=== PATIENT | female | born 1950 | race Caucasian/White ===

== ENCOUNTER 2021-02-21 13:54 | Outpatient (REF) | payer MEDICARE, SELFPAY ==
--- NOTE | ~2021-02-21 | MM_ITS ---
EXAMINATION: BONE DENSITOMETRY CLINICAL INDICATION: Screening for osteoporosis. COMPARISON: Baseline BD dated 10/12/2018. TECHNIQUE: Using a [employer] DXA System (software version: 13.1) manufactured by [employer], dual-energy x-ray absorptiometry was performed of the lumbar spine and left hip. The images are of good technical quality. Summary results are attached. FINDINGS: AP SPINE L1-L4: Current: BMD 1.247 g/cm2, Z-score 1.1, T-score 0.6, normal, 16.9% increase from baseline (<5% change is not significant). Baseline: BMD 1.067 g/cm2. LEFT FEMUR, NECK: Current: BMD 0.915 g/cm2, Z-score 0.1, T-score -0.9, normal. Baseline: BMD 0.911 g/cm2. LEFT FEMUR, TOTAL: Current: BMD 0.883 g/cm2, Z-score -0.3, T-score -1.0, normal, 3.7% decrease from baseline (<5% change is not significant). Baseline: BMD 0.917 g/cm2. IDENTIFIED RISK FACTORS: Rheumatoid arthritis, height loss. Early menopause, secondary osteoporosis, hysterectomy. HISTORY OF FRACTURE: None listed. MEDICATIONS: Calcium supplements or multivitamin, vitamin D. MM/XR DEXA axial skeleton IMPRESSION: 1. DIAGNOSIS: Normal bone density based on the lowest T-score value of -1.0 in the total femur applying World Health Organization criteria. 2. 10-YEAR FRACTURE RISK PREDICTION, FRAX: Major osteoporotic fracture (clinical spine, forearm, hip or shoulder) 9.2%. Hip fracture 0.9%. 3. Treatment Recommendations: NOF guidelines recommend consideration for treatment in postmenopausal women and men age 50 and older presenting with the following: -A hip or vertebral (clinical or morphometric) fracture. -T-score less than or equal to -2.5 at the femoral neck or spine after appropriate evaluation to exclude secondary causes. -Low bone mass at the hip or spine and a 10-year fracture probability by FRAX of greater than or equal to 3% for hip fracture or greater than or equal to 20% for major osteoporotic fracture based on the [place] adapted WHO algorithm. 4. Other Recommendations: All treatment decisions require clinical judgment and consideration of individual patient factors, including patient preferences, comorbidities, previous drug use, risk factors not captured in the FRAX model (e.g. frailty, falls, vitamin D deficiency, increased bone turnover, interval significant decline in bone density) and possible under or overestimation of fracture risk by FRAX. FUTURE SCAN RECOMMENDATION: People with diagnosed cases of osteoporosis or at high risk for fracture should have regular bone mineral density tests. For patients eligible for Medicare, routine testing is allowed once every 2 years. The testing frequency can be increased to one year for patients who have rapidly progressing disease, those who are receiving or discontinuing medical therapy to restore bone mass, or have additional risk factors.
== END 2021-02-21 13:55 | disposition home or self-care (01) ==
LOC: HO.MAMMO 13:54
PROVIDERS: Visit Provider Internal Medicine Rheumatology
DX: Z13.820 Encounter for screening for osteoporosis (principal); M05.79 Rheumatoid arthritis with rheumatoid factor of multiple sites without organ or systems involvement; Z78.0 Asymptomatic menopausal state; Z79.899 Other long term (current) drug therapy; Z98.890 Other specified postprocedural states
CPT/HCPCS: 77080

== ENCOUNTER 2021-09-09 11:09 | Emergency (ER) | payer MEDICARE, SELFPAY ==
--- NOTE | ~2021-09-09 | XR_ITS ---
EXAMINATION: XR CHEST CLINICAL INFORMATION: Dyspnea COMPARISON: Chest radiographs 11/20/2019, 10/14/2018 TECHNIQUE: Frontal view of the chest was obtained. FINDINGS: The lungs are clear. There is no pneumothorax or pleural reaction. No vascular congestion, infiltrate, or groundglass opacity. The costophrenic sulci are clear. The heart is normal in size. The hilar and mediastinal contours and visualized bony structures are unremarkable. XR/XR chest 1V IMPRESSION: Unremarkable examination.
[2021-09-09 11:51] VITALS: BP 153/55; PULSE 83; RESP 20; TEMP 36.9; O2SAT 95; BMI 44.2
--- NOTE | 2021-09-09 11:54 | ECG_ITS ---
Test Reason : SOB Blood Pressure : / mmHG Vent. Rate : 076 BPM Atrial Rate : 076 BPM P-R Int : 196 ms QRS Dur : 074 ms QT Int : 402 ms P-R-T Axes : 043 -07 034 degrees QTc Int : 452 ms Normal sinus rhythm Left axis deviation Poor R wave progression Abnormal ECG When compared with ECG of 20-NOV-2019 18:31, No significant change was found Referred By: Generic ED Physician Electronically Signed By:FRED SMYTH MD
[2021-09-09 12:49] LABS: MANUAL DIFF FLAG NO
[2021-09-09 12:53] LABS: Basophils Percent Auto 0.4 % (0-2); Eosinophils Absolute Auto 0.3 X10*3/uL (0.0-0.4); Eosinophils Percent Auto 3.7 % (0-4); Imm Gran Abs Auto 0.02 X10*3/uL (0.00-0.03); Imm Gran Pct Auto 0.3 % (0.0-0.4); Lymphocytes Absolute Auto 0.7 X10*3/uL (1.2-4.9); Lymphocytes Percent Auto 8.9 % (20-40); Mean Corpuscular HGB Conc 32.4 g/dl (31.0-35.0); Mean Corpuscular Hemoglobin 30.4 pg (27.0-33.0); Mean Corpuscular Volume 93.9 fL (80.0-98.0); Mean Platelet Volume 9.5 fL (9.4-12.3); Monocytes Absolute Auto 0.4 X10*3/uL (0.1-1.2); Monocytes Percent Auto 5.4 % (2-11); Neutrophils Absolute Auto 6.1 x10*3/uL (2.0-8.3); Neutrophils Percent Auto 81.3 % (45-73); Platelet Count 252 X10*3/uL (160-400); Red Blood Count 3.62 X10*6/uL (4.20-5.50); Red Cell Distribution Width 14.3 % (11.0-16.0); White Blood Count 7.5 X10*3/uL (4.8-10.8)
[2021-09-09 13:05] LABS: Anion Gap 14 (12-20); Blood Urea Nitrogen 17 mg/dL (9-16); Calcium 8.6 mg/dL (8.4-10.2); Carbon Dioxide 23 mmol/L (22-29); Chloride 104 mmol/L (96-108); Creatinine Clr Calc Pharmacy 59.5; Estimated Glomerular Filt Rate 52; Glucose Random 270 mg/dL (60-115); Potassium 4.8 mmol/L (3.3-5.1); Sodium 136 mmol/L (135-145)
[2021-09-09 13:13] LABS: B Type Natriuretic Peptide 31 pg/mL (<100)
[2021-09-09] MEDS: methylPREDNISolone Sod Succ 125 MG/2 ML VIAL IVPUSH (13:16)
[2021-09-09 13:19] VITALS: BP 148/59; PULSE 82; RESP 22; O2SAT 98
--- NOTE | 2021-09-09 15:03 | ED.GENADULT ---
HPI - General Adult General Chief complaint: Dyspnea Stated complaint: Difficulty Breathing Time Seen by Provider: 09/09/21 12:52 Source: patient Mode of arrival: ambulatory Limitations: no limitations History of Present Illness HPI narrative: 71-year-old female who presents emergency department for evaluation of shortness of breath x6 days. Patient states that she has had a cough which has been nonproductive. She also complains of right-sided chest pain. She describes the pain is a pressure-like pain which is intermittent and is mild to moderate intensity, the pain is worse with breathing and with coughing. The patient does have a history of asthma and states that over the past 2-3 days she has had to use her inhaler 2 to 3 times a day and her albuterol nebulizer 2 to 3 times a day as well. She states that this is unusual to use these medications this frequently without any relief. She denied fever, chills, abdominal pain, nausea, vomiting, diarrhea, myalgias or arthralgias. The patient states that she has not had to be hospitalized for asthma and a very long time. She has received the 2 shot [employer] COVID 19 vaccination. Related Data Previous Rx's Medication Instructions Recorded prednisone 20 mg tablet 40 mg PO DAILY 5 Days #10 tab 09/09/21 Allergies Allergy/AdvReac Type Severity Reaction Status Date / Time rosuvastatin [From CRESTOR] Allergy Unknown UNKNOWN Unverified 06/27/20 15:50 Review of Systems Review of Systems: Yes all other systems are reviewed and are negative [facility] Past Medical History [facility] Narrative: Past medical history: Diabetes mellitus, hypertension, asthma, pulmonary embolism 5 years prior pain treated with Eliquis. Past surgical history hysterectomy. Social history: She lives with her sister and [id number]. She denies tobacco, alcohol and drug use. Medical History (Updated 09/09/21 @ 15:20 by Favian Guerrero MD) Diabetes mellitus, type 2 Hypertension Social History Social History Alcohol intake: unknown Patient Tobacco Use Status: Tobacco use Unknown Use of substances other than those prescribed or required for medical reasons: No Advance Directives: Yes Advance Directives Information Provided: No Advance Directives on File: No Physical Exam Vital Signs: Vital Signs: Last Vital Signs Temp 98.4 F 09/09/21 11:51 Pulse 81 09/09/21 15:18 Resp 20 09/09/21 15:18 BP 149/76 H 09/09/21 15:18 Pulse Ox 99 09/09/21 15:18 Body Mass Index 44.2 Const: Other: Very pleasant and cooperative elderly patient, does not appear to be in distress, is able to talk in full sentences, answers all questions appropriately. HENMT: Head: Yes normal to inspection, Yes normocephalic and Yes atraumatic Ears: external ears normal General nose exam: Normal external nose present Face and sinus: Yes normal facial exam Mouth: Normal oral and palatal mucosa present Throat: Yes posterior oropharynx normal Eyes: General: appearance normal, both eyes and all related structures Pupils: Equal, round and reactive pupils present Neck: Neck: Yes normal visual inspection, Yes no lymphadenopathy, Yes trachea midline and Yes supple Chest: Chest palpation & inspection: normal inspection of the chest and normal palpation of entire chest wall Resp: Effort & Inspection: normal respiratory effort and able to speak in complete sentences Auscultation: clear to auscultation bilaterally Cardio: Rate: regular rate Rhythm: regular rhythm Heart sounds: S1 normal heart sound present, S2 normal heart sound present and no murmurs GI: Inspection: Yes normal to inspection Palpation (GI): Soft to palpation, nontender and no guarding Auscultation: normal bowel sounds : General: Yes no CVA tenderness Back/Spine/Pelvis: Back: no CVA tenderness Skin: General skin exam: no rashes or lesions noted Neuro: Cranial nerves: Yes CN's II-XII intact bilaterally and Yes Equal, round and reactive pupils present Cognition (Neuro): normal cognition Motor exam (neuro): 5/5 motor strength present throughout Extrem: General: Yes normal to inspection Psych: Appearance: grossly normal Speech and movement: Normal speech and movement present Affect: normal affect Attitude: cooperative Thought process: Normal thought process present Thought content: Normal thought content present Course Course Course Narrative: 71-year-old female who presents emergency department for evaluation nonproductive cough, shortness of breath x6 days who has a history of asthma and has been using her albuterol inhaler and nebulizer more frequently with only minimal improvement of her shortness of breath. Vital signs revealed an elevated blood pressure of 153/55 and an O2 saturation ranging from 95-98% on room air. Patient's lung exam was unremarkable. The patient's laboratory evaluation revealed mild anemia with an H&H of 11 and 34. The patient does have an elevated glucose of 270. The patient's high sensitivity troponin I was detectable at 7.0 but not elevated. Twelve EKG was unremarkable. Chest x-ray revealed no evidence of pneumonia. Patient's presentation is consistent with an asthma exacerbation most likely triggered by a viral infection. Patient was given Solu-Medrol 125 mg IV. I did order a SARs COVID-19, influenza and RSV swab however this is pending. At this time I think the patient is stable to be discharged home and she agrees that she feels that she can continue to manage her asthma exacerbation at home. Patient was prescribed prednisone 40 mg once a day for 5 days. She was advised to continue using her albuterol inhaler and nebulizer as prescribed. She was given printed and verbal instructions and discharged home. 1719: COVID 19, Influenza and RSV tests were negative. I did discuss these tests with the patient. Medical Decision Making Lab Data Result diagrams: 09/09/21 12:42 09/09/21 12:42 Labs: Lab Results 09/09/21 09/09/21 09/09/21 Range/Units 12:42 12:42 12:42 WBC 7.5 (4.8-10.8) X10*3/uL RBC 3.62 L (4.20-5.50) X10*6/uL Hgb 11.0 L (12.0-16.0) g/dl Hct 34.0 L (37.0-47.0) % MCV 93.9 (80.0-98.0) fL MCH 30.4 (27.0-33.0) pg MCHC 32.4 (31.0-35.0) g/dl RDW 14.3 (11.0-16.0) % Plt Count 252 (160-400) X10*3/uL MPV 9.5 (9.4-12.3) fL Immature Gran % (Auto) 0.3 (0.0-0.4) % Neut % (Auto) 81.3 H (45-73) % Lymph % (Auto) 8.9 L (20-40) % Floyd % (Auto) 5.4 (2-11) % Eos % (Auto) 3.7 (0-4) % Baso % (Auto) 0.4 (0-2) % Lymph # (Auto) 0.7 L (1.2-4.9) X10*3/uL Floyd # (Auto) 0.4 (0.1-1.2) X10*3/uL Eos # (Auto) 0.3 (0.0-0.4) X10*3/uL Baso # (Auto) 0.0 (0.0-0.2) X10*3/uL Abs Immat Gran (auto) 0.02 (0.00-0.03) X10*3/uL Absolute Neuts (auto) 6.1 (2.0-8.3) x10*3/uL Absolute Nucleated RBC 0.000 (0.0-0.012) X10*3/uL Nucleated RBC % (auto) 0.0 (0.0-0.2) /100WBC Sodium 136 (135-145) mmol/L Potassium 4.8 (3.3-5.1) mmol/L Chloride 104 (96-108) mmol/L Carbon Dioxide 23 (22-29) mmol/L Anion Gap 14 (12-20) BUN 17 H (9-16) mg/dL Creatinine 1.05 (0.5-1.4) mg/dL Estim Creat Clear Calc 59.5 Estimated GFR 52 Random Glucose 270 H (60-115) mg/dL Calcium 8.6 (8.4-10.2) mg/dL Troponin I High Sens 7.0 (<3.5-17.0) ng/L B-Natriuretic Peptide 31 (<100) pg/mL Influenza Type A (PCR) (Negative) Influenza Type B (PCR) (Negative) RSV RNA Qual (PCR) (Negative) SARS-CoV-2 RNA (RT-PCR) (Negative) 09/09/21 Range/Units 15:19 WBC (4.8-10.8) X10*3/uL RBC (4.20-5.50) X10*6/uL Hgb (12.0-16.0) g/dl Hct (37.0-47.0) % MCV (80.0-98.0) fL MCH (27.0-33.0) pg MCHC (31.0-35.0) g/dl RDW (11.0-16.0) % Plt Count (160-400) X10*3/uL MPV (9.4-12.3) fL Immature Gran % (Auto) (0.0-0.4) % Neut % (Auto) (45-73) % Lymph % (Auto) (20-40) % Floyd % (Auto) (2-11) % Eos % (Auto) (0-4) % Baso % (Auto) (0-2) % Lymph # (Auto) (1.2-4.9) X10*3/uL Floyd # (Auto) (0.1-1.2) X10*3/uL Eos # (Auto) (0.0-0.4) X10*3/uL Baso # (Auto) (0.0-0.2) X10*3/uL Abs Immat Gran (auto) (0.00-0.03) X10*3/uL Absolute Neuts (auto) (2.0-8.3) x10*3/uL Absolute Nucleated RBC (0.0-0.012) X10*3/uL Nucleated RBC % (auto) (0.0-0.2) /100WBC Sodium (135-145) mmol/L Potassium (3.3-5.1) mmol/L Chloride (96-108) mmol/L Carbon Dioxide (22-29) mmol/L Anion Gap (12-20) BUN (9-16) mg/dL Creatinine (0.5-1.4) mg/dL Estim Creat Clear Calc Estimated GFR Random Glucose (60-115) mg/dL Calcium (8.4-10.2) mg/dL Troponin I High Sens (<3.5-17.0) ng/L B-Natriuretic Peptide (<100) pg/mL Influenza Type A (PCR) NEGATIVE (Negative) Influenza Type B (PCR) NEGATIVE (Negative) RSV RNA Qual (PCR) NEGATIVE (Negative) SARS-CoV-2 RNA (RT-PCR) NEGATIVE (Negative) ECG Data Interpretation: 1247: Normal sinus rhythm with a rate of 76, normal MO QRS and QTC intervals, Q-wave in lead 3, V1 and V2 with no ST segment elevation or ST segment depression, no PACs, no PVCs, no significant T-wave abnormalities. This is an abnormal EKG suggestive an old septal infarct with no old EKG for comparison Discharge Plan Discharge Clinical Impression: Acute viral syndrome Asthma with exacerbation Qualifiers: Asthma severity: moderate Asthma persistence: unspecified Qualified Code(s): J45.901 - Unspecified asthma with (acute) exacerbation Patient Disposition: Home, Self-Care Instructions: Asthma (ED), Viral Syndrome (ED) Additional Instructions: Your laboratory evaluation was unremarkable. Your chest x-ray was normal with no signs of pneumonia or pulmonary edema. Your symptoms are consistent with a viral infection that is causing your asthma to flare up. You received a steroid called Solu-Medrol 125 mg IV in the emergency department. This should reduce the inflammation in your breathing tubes and help with your shortness of breath and your asthma exacerbation. I am prescribing another steroid for you called prednisone. Take prednisone 20 mg pills, 2 pills once a day for 5 days. Take your 1st dose tomorrow morning since you have already received the steroid Solu-Medrol here in the emergency department. Your tested for COVID-19, influenza and RSV virus. I will call you today with this result. It can sometimes take 4-6 hours to come back. Follow-up with your doctor in 2 days. Please return to the emergency department if your symptoms get worse or if you develop any symptoms that are concerning to you. Prescriptions: New prednisone 20 mg tablet 40 mg PO DAILY 5 Days Qty: 10 RF: 0 Interventions: ED Discharge Assessment Last Done: 09/09/21 15:38 Discharge Date/Time: 09/09/21 15:39
[2021-09-09 15:18] VITALS: BP 149/76; PULSE 81; RESP 20; O2SAT 99
[2021-09-09 16:05] LABS: Influenza A PCR NEGATIVE (Negative); Influenza B PCR NEGATIVE (Negative); Resp Syncy Virus RNA Qual PCR NEGATIVE (Negative); SARS COV2 PCR INHOUSE NEGATIVE (Negative)
== END 2021-09-09 15:39 | disposition home or self-care (01) ==
PROVIDERS: Emergency Provider Emergency Medicine Emergency Medical Services; PCP Internal Medicine
DX: B34.9 Viral infection, unspecified (principal); J45.901 Unspecified asthma with (acute) exacerbation; Z20.822 Contact with and (suspected) exposure to COVID-19; R06.02 Shortness of breath; E11.9 Type 2 diabetes mellitus without complications; I10 Essential (primary) hypertension
CPT/HCPCS: 0241U; 36415; 71045; 80048; 83880; 84484; 85025; 93005; 96374; 99284; 99285; J2930

== ENCOUNTER 2022-05-06 14:10 | Emergency (ER) | payer MEDICARE, SELFPAY ==
--- NOTE | ~2022-05-06 | CT_ITS ---
CT head/brain wo con CLINICAL INFORMATION: Reason for Exam recurrent falls, on Eliquis COMPARISON: No prior CT scan available for comparison. TECHNIQUE: Department standard protocol. This CT examination was performed using dose optimization techniques as appropriate, variously including the following: *Automated exposure control *Adjustment of mA and/or kV according to patient size (this includes techniques or standardized protocols for targeted exams where dose is matched to indication/reason for exam; i.e. extremities or head) *Use of iterative reconstruction technique DLP: 764 mGy-cm FINDINGS: CEREBRAL HEMISPHERES: There is no evidence of intra-axial or extra-axial mass, hemorrhage or acute infarct. BRAIN PARENCHYMA: Deep white matter and paraventricular hypoattenuation, nonspecific; most likely changes secondary to chronic ischemia due to microvascular angiopathy. SUBDURAL SPACE: No bleed. BASAL GANGLIA AND PINEAL GLAND: Unremarkable VENTRICLES: Symmetric and normal in size. CEREBELLUM AND BRAINSTEM: No space-occupying mass, hemorrhage or acute infarct. CEREBELLOPONTINE ANGLES: No lesion found. ORBITS: No intraorbital mass. VESSELS: Unremarkable SKULL BASE: Dilated the pituitary fossa, pituitary gland is displaced along the floor empty sella, this has been described with possible underlying hydrocephalus. The ventricles however are nondilated. INCLUDED SINUSES AT SKULL BASE: Clear SKULL AND SKIN: No fracture or bone lesion found. CT/CT head/brain wo con IMPRESSION: *No intracranial bleed. *Mildly dilated pituitary fossa, empty sella, this has been described in association with possible chronic increased intracranial pressure, there is no significant dilatation of the ventricles however. Please correlate clinically. MRI could be utilized for further investigation if clinically indicated.
--- NOTE | ~2022-05-06 | XR_ITS ---
EXAMINATION: XR KNEE, RIGHT CLINICAL INFORMATION: Fall pain COMPARISON: None TECHNIQUE: Four views of the right knee. FINDINGS: Total knee replacement prosthesis device in place properly positioned, no radiographic evidence of a fracture or dislocation. No joint effusion. There is heavy vascular calcifications. XR/XR knee RT 4V IMPRESSION: Total knee replacement. No radiographic evidence of acute fracture. Heavy vascular calcification.
--- NOTE | ~2022-05-06 | XR_ITS ---
EXAMINATION: XR HIP, RIGHT , AP pelvis CLINICAL INFORMATION: Fall pain COMPARISON: None available at the time of this dictation. TECHNIQUE: Frontal and lateral views of the hip acquired. , AP pelvis FINDINGS: Subtle radiolucent line right superior pubic ramus may represent nondisplaced incomplete hairline fracture. There are mild degenerative arthritic changes of the hip evident by sclerotic changes of the acetabular roof and narrowing of the joint space. Mild degenerative changes of the symphysis pubis. Mild degenerative changes of the SI joints. Adjacent pubic rami are intact. Surrounding soft tissues are unremarkable. XR/XR hip RT w [id number] IMPRESSION: Suspicion for possible nondisplaced incomplete hairline fracture through the right superior pubic ramus just lateral to the symphysis pubis seen on one image only, please correlate with area of tenderness, this can be confirmed by CT scan or MRI if indicated. Underlying DJD. Normal radiograph does not entirely exclude the possibility of hip fracture or bone contusions. If there is high clinical suspicion or if patient symptoms persist for longer period, then MRI might be utilized for further investigation.
--- NOTE | ~2022-05-06 | CT_ITS ---
EXAMINATION: CT PELVIS WITHOUT CONTRAST CLINICAL INFORMATION: Fall with right hip pain COMPARISON: None TECHNIQUE: Helical scanning was performed with submillimeter collimation through the pelvis. Sagittal and coronal multiplanar 2-D reconstructions were obtained. This CT examination was performed using dose optimization techniques as appropriate, variously including the following: *Automated exposure control *Adjustment of mA and/or kV according to patient size (this includes techniques or standardized protocols for targeted exams where dose is matched to indication/reason for exam; i.e. extremities or head) *Use of iterative reconstruction technique DLP: 609 mGy-cm FINDINGS: No pelvic or hip fracture is seen. Some harsha changes are present in the mesentery which are nonspecific. Patient status post hysterectomy. Left ovary is seen and contains a small benign cyst. The right ovary is not identified. Few scattered colonic diverticula are seen in the visualized colon. Small bowel appears unremarkable. No abdominal wall hernias are seen. Moderate vascular calcifications are present. No ascites or hemoperitoneum. CT/CT pelvis wo con IMPRESSION: No evidence of a hip fracture or any other fracture of the visualized pelvis.
[2022-05-06 14:26] VITALS: BP 130/68; BP 137/62; PULSE 89; PULSE 90; RESP 18; TEMP 36.8; O2SAT 97; O2SAT 98; BMI 46.5
--- NOTE | 2022-05-06 15:06 | ED_ITS ---
HPI - Fall General Chief Complaint: Fall Stated Complaint: mechanical fall Time Seen by Provider: 05/06/22 15:00 Source: patient Mode of arrival: ambulatory Limitations: no limitations History of Present Illness HPI Narrative: 71 y/o female with history of pulmonary emboli 6 years ago on Eliquis, asthma, HTN, DM who presents to the ER for evaluation of a fall at the [facility] earlier today. This is reportedly her 2nd fall in the last 3 days. She reports tripping on the curb outside of the center today. She fell onto her knees and then right side. She did not hit her head or lose consciousness. EMS was called and she was helped onto the stretcher. She reports right knee pain and right hip pain. She reports the pain is 10/10 and worse when she tries to move her leg or bend her knee. She sustained some minor abrasions on her bilateral knees and left elbow. No bleeding on arrival. She denies headache, neck pain, chest pain or SOB. She reports the other fall was also mechanical fall outside, tripping on something. She denies any preceding symptoms. MD complaint: fall Onset (ago): hour(s) Fall from: standing Fall witnessed: yes, by bystander Place fall occurred: long-term/SNF Loss of consciousness: none Prolonged down time: no Symptoms prior to fall: none Context: tripped/slipped Location of injury - extremities: right: elbow and bilateral: knee Severity: severe Severity scale (1-10): 10 Quality: sharp and aching Associated symptoms (after fall): unable to walk Related Data Previous Rx's Medication Instructions Recorded prednisone 20 mg tablet 40 mg PO DAILY 5 days #10 tabs 09/09/21 Allergies Allergy/AdvReac Type Severity Reaction Status Date / Time rosuvastatin [From CRESTOR] Allergy Unknown UNKNOWN Unverified 06/27/20 15:50 Review of Systems Review of Systems: Constitutional: No Fever, No Chills ENT/Mouth: No sore throat, No Rhinorrhea, No Swallowing Difficulty Cardiovascular: No Chest Pain, No SOB, No Orthopnea, No Edema Respiratory: No Cough, No Sputum, No Wheezing, No dyspnea Gastrointestinal: No Nausea, No Vomiting, No Diarrhea, No abdominal Pain Genitourinary: No Dysuria, No Urinary Frequency, No Hematuria Musculoskeletal: + joint pain, No Myalgias Skin: + Skin Lesions, No rash Neuro: No Weakness, No Numbness, No Dizziness, No Headache Psych: No Anxiety/Panic, No Depression Heme/Lymph: No Bruising, No Lymphadenopathy Endocrine: No Polyuria, No Polydipsia [facility] [place] Past Medical History Medical History (Updated 05/06/22 @ 19:26 by DAVID Stevens) Diabetes mellitus, type 2 Hypertension Social History Social History Alcohol intake: unknown Patient Tobacco Use Status: Tobacco use Unknown Advance Directives: Yes Advance Directives Information Provided: Yes Advance Directives on File: No Physical Exam Vital Signs: Vital Signs: Last Vital Signs Temp 98.2 F 05/06/22 14:26 Pulse 88 05/06/22 19:18 Resp 18 05/06/22 19:18 BP 146/56 H 05/06/22 19:18 Pulse Ox 97 05/06/22 19:18 O2 Del Method 05/06/22 19:18 BMI result Body Mass Index 46.5 Appearance: Alert. Oriented X3. No acute distress. HEENT: normal inspection CVS: Normal heart rate and rhythm. Pulses normal. Respiratory: No respiratory distress. Lungs CTAB Abd: Obese, soft, nontender. Skin: Skin warm and dry. Normal skin color. Normal skin turgor. No rashes. Extremities: Neuro: Oriented X 3. No motor deficit. No sensory deficit. Course Course Course Narrative: 71 yo female presents to the ER with right knee and hip pain s/p mechanical fall today. No obvious hip deformity on exam but pain with flexion of the right knee and hip. XR knee showing no acute fracture or dislocation, s/p TKR. Will get XR right hip as well. PO pain meds ordered. will reasess. Reevaluation(s) Reevaluation #1: XR right hip showing possible nondisplaced incomplete hairline fracutre through the right superior pubic ramus just lateral to the symphysis pubis on one image only. Will get CT scan of the pelvis for further evaluation. Reevaluation #2: CT scan showing no evidence of a hip fracture or any other fracture of the pelvis. She is ambulating well to the bathroom. Pain is better after meds. She is declining need for PT evaluation. She would like to go home. We discussed the importance of compliance with her cane or walker. Sister who she lives with is at the bedside and agrees (patient often refuses). Stable for d/c home with outpatient follow up. Pain control with PRN tylenol only for now. Discharge Plan Discharge Clinical Impression: Abrasion of both knees, Contusion of hip, right Patient Disposition: Home, Self-Care Instructions: Abrasion (ED), Hip Contusion (ED) Additional Instructions: Your CT scans today did not show any acute injuries. Recommend taking Tylenol 975 every 6 hours for pain. Use ice several times per day. When you are walking it is very important that you are using a cane or a walker. If you continue to have recurrent falls you may be instructed to discontinue your Eliquis by your doctor. Follow up with your doctor within the next week. If you develop new or worsening symptoms call 911 or come back to the ER for further evaluation. Prescriptions: No Action prednisone 20 mg tablet 40 mg PO DAILY 5 Days Qty: 10 0RF Interventions: ED Discharge Assessment Last Done: 05/06/22 20:05 Discharge Date/Time: 05/06/22 20:05
[2022-05-06] MEDS: oxyCODONE HCl Immed Release 5 MG TABLET PO (15:54)
[2022-05-06] MEDS: Acetaminophen 325 MG TABLET 975 MG PO (15:54)
[2022-05-06 19:18] VITALS: BP 146/56; PULSE 88; RESP 18; O2SAT 97
== END 2022-05-06 20:05 | disposition home or self-care (01) ==
PROVIDERS: Emergency Provider Emergency Medicine; PCP Internal Medicine
DX: S70.01XA Contusion of right hip, initial encounter (principal); S80.212A Abrasion, left knee, initial encounter; S80.211A Abrasion, right knee, initial encounter; S50.312A Abrasion of left elbow, initial encounter; W10.1XXA Fall (on)(from) sidewalk curb, initial encounter; Z91.81 History of falling; Y93.01 Activity, walking, marching and hiking; Y92.480 Sidewalk as the place of occurrence of the external cause; Y99.9 Unspecified external cause status; E11.9 Type 2 diabetes mellitus without complications; I10 Essential (primary) hypertension; Z96.651 Presence of right artificial knee joint
CPT/HCPCS: 70450; 72192; 73502; 73564; 99283; 99284

== ENCOUNTER 2023-01-20 05:06 | Observation (INO) | payer MEDICARE, SELFPAY ==
[2023-01-20] VITALS (9 sets, daily range): BP systolic 115–166; BP diastolic 38–83; PULSE 70–91; RESP 16–22; TEMP 35.6–37.4; O2SAT 93–98; BMI 47.0
--- NOTE | ~2023-01-20 | CT_ITS ---
EXAMINATION: Head and cervical spine CT without IV contrast CLINICAL INFORMATION: Fall COMPARISON: Previous head CT April 2022 TECHNIQUE: Axial images through the head and cervical spine without IV contrast. Sagittal and coronal reconstructions on the technologist workstation were performed. This CT examination was performed using dose optimization techniques as appropriate, variously including the following: *Automated exposure control *Adjustment of mA and/or kV according to patient size (this includes techniques or standardized protocols for targeted exams where dose is matched to indication/reason for exam; i.e. extremities or head) *Use of iterative reconstruction technique DLP 123 2 mg/cm FINDINGS: Head CT: There is no evidence of an extra-axial collection. There is no evidence of intra-axial or extra-axial hemorrhage. The ventricles and extra-axial CSF spaces are appropriate. There is nonspecific periventricular white matter disease. No mass, mass effect or infarct. Review at bone windows is normal. No skull fracture. Visualized paranasal sinuses, mastoid air cells and middle ears are clear. Cervical spine: Bone alignment is normal. No fracture or dislocation. There is mild degenerative spondylosis and degenerative disc disease at C5-C6 and C6-C7. There are mild degenerative changes at the C1 dens articulation. Prevertebral soft tissues are normal. There is bilateral carotid calcification. There is medial course of the carotid arteries. Visualized lung apices are clear. CT/CT cervical spine wo IV con IMPRESSION: Head CT: No acute findings. Cervical spine CT: Mild degenerative changes. No fracture or dislocation.
--- NOTE | ~2023-01-20 | CT_ITS ---
EXAMINATION: CT CHEST, ABDOMEN AND PELVIS WITHOUT CONTRAST CLINICAL INFORMATION: Shortness of breath with acute mental status change and abdominal pain. COMPARISON: CTA chest of June 27, [address] pelvis of May 06, 2022 TECHNIQUE: Multidetector volumetric imaging was performed from the thoracic inlet through the pubic symphysis without oral or IV contrast. Sagittal and coronal reformatted images were obtained on the technologist workstation. DLP: Chest 481, abdomen and pelvis 1090 mGy-cm. FINDINGS: CHEST: Lungs: The central airways are patent. There is some bronchial wall thickening seen centrally most prominent within the left lower lobe. No bronchiectasis is identified. There is minimal dependent atelectasis at the right base. There appears to be some mild pleural thickening posteriorly in the left lower lung as well as trace effusion. There are some discoid regions of density consistent with atelectasis or scarring within the left lower lobe.. Sub-4 mm densities present. Mediastinum: Heart normal size. Coronary artery calcifications present. No pericardial effusion. No thoracic aortic aneurysm. No mediastinal or hilar lymphadenopathy appreciated. Visualized thyroid gland appears unremarkable. Small hiatal hernia present. There is some prominent calcified plaque at the origin of the left subclavian artery. Pleura: There is no significant effusion. No pleural mass or thickening. Chest Wall/Axilla: No axillary lymphadenopathy is appreciated. There are some prominent collateral vessels seen about the left chest wall most prominent off of the internal mammary vein. ABDOMEN/PELVIS: Liver, Gallbladder, Biliary Tree: The liver is normal in size, shape, and attenuation. No focal hepatic lesion or biliary ductal dilatation is present. The gallbladder is unremarkable with no evidence of radiopaque gallstones, gallbladder wall thickening, or pericholecystic inflammatory changes. Pancreas: No abnormal mass is identified. There is some fatty atrophy of the pancreas present. Spleen: Spleen is prominent at approximately 12 cm in vertical span without mass. Adrenal Glands: Unremarkable. Kidneys and Ureters: The kidneys are normal in size, shape, and attenuation. No hydronephrosis or hydroureter or calculi seen. No perinephric stranding. Bladder: Very distended without suspicious findings. Gastrointestinal Tract: No dilated loops of large or small bowel are evident. No free intra-abdominal air is seen. There is noted to be a moderate amount of ascites present. There is a small hiatal hernia present. No significant pericolonic inflammatory change is identified. The appendix is prominent at approximately 1.2 cm in diameter with some adjacent fat stranding however this may be due to the ascites and diffuse edema is present however acute appendicitis cannot be excluded. No periappendiceal abscess is seen. No appendicolith is noted. Mesenteric fat edema is present. Abdominal Wall: No hernia is demonstrated. Lymph Nodes: No lymphadenopathy is appreciated. Vascular: No abdominal aortic aneurysm. There is moderate calcified plaque within the aortoiliac system most prominent at the origins of the visceral vessels. There are collateral vessels seen about the left chest wall as well as about the left abdomen from the left femoral vein. Pelvic Viscera: No abnormal pelvic mass identified. Osseous Structures: No suspicious destructive bony lesion identified. Multilevel degenerative disc disease. CT/CT abdomen pelvis wo IV con IMPRESSION: Moderate ascites. No evidence of gastrointestinal ileus or obstruction. Appendix measures up to approximately 1.2 cm in diameter however with the adjacent ascites is difficult to tell whether there is periappendiceal inflammatory change or edema related to the ascites. Clinical correlation is suggested. Arterial vascular disease. Venous collateral vessels about the left chest and abdomen.
--- NOTE | ~2023-01-20 | CT_ITS ---
EXAMINATION: Head and cervical spine CT without IV contrast CLINICAL INFORMATION: Fall COMPARISON: Previous head CT April 2022 TECHNIQUE: Axial images through the head and cervical spine without IV contrast. Sagittal and coronal reconstructions on the technologist workstation were performed. This CT examination was performed using dose optimization techniques as appropriate, variously including the following: *Automated exposure control *Adjustment of mA and/or kV according to patient size (this includes techniques or standardized protocols for targeted exams where dose is matched to indication/reason for exam; i.e. extremities or head) *Use of iterative reconstruction technique DLP 123 2 mg/cm FINDINGS: Head CT: There is no evidence of an extra-axial collection. There is no evidence of intra-axial or extra-axial hemorrhage. The ventricles and extra-axial CSF spaces are appropriate. There is nonspecific periventricular white matter disease. No mass, mass effect or infarct. Review at bone windows is normal. No skull fracture. Visualized paranasal sinuses, mastoid air cells and middle ears are clear. Cervical spine: Bone alignment is normal. No fracture or dislocation. There is mild degenerative spondylosis and degenerative disc disease at C5-C6 and C6-C7. There are mild degenerative changes at the C1 dens articulation. Prevertebral soft tissues are normal. There is bilateral carotid calcification. There is medial course of the carotid arteries. Visualized lung apices are clear. CT/CT head/brain wo IV con IMPRESSION: Head CT: No acute findings. Cervical spine CT: Mild degenerative changes. No fracture or dislocation.
--- NOTE | 2023-01-20 05:13 | PC.NURSE ---
If a med list is needed, to call family (Kuldip Choudhury) @ [phone].
[2023-01-20 05:17] LABS: Glucose, Whole Blood 89 mg/dL (60-115)
[2023-01-20 05:45] LABS: Glucose, Whole Blood 92 mg/dL (60-115)
--- NOTE | 2023-01-20 05:45 | ED.AMS ---
HPI - Altered Mental Status General Chief Complaint: Weakness Stated Complaint: unresponsive low POC Time Seen by Provider: 01/20/23 05:29 Source: family and EMS Mode of arrival: EMS Limitations: altered mental status History of Present Illness HPI narrative: Patient with history of diabetes on insulin and metformin, COPD/asthma, hypothyroidism and rheumatoid arthritis ambulatory and alert oriented x3 as such took her Lantus 50 units in the evening as usual but did not eat much at the supper. At 22:30 told her sister that she feeling weak and needs something to eat and had a bowl of ice cream but did not check her sugar. At around 02:30 a.m. sister heard a noise went to her room noticed she rolled over from her bed to carpeted floor with face down.. And she was very confused sister checked the sugar at 04:00 o'clock was 80 called the EMS when they came blood sugar was 23 was given half amp D50 and 1 mg of glucagon sugar improved to 104 per EMS on arrival it was 89 patient alert and oriented x2 still sluggish response and confused. No history of fever no chills no cough no urinary complaints no nausea vomiting or diarrhea Related Data Home Medications Medication Instructions Recorded Confirmed apixaban 5 mg tablet (Eliquis) 5 mg PO BID 01/20/23 01/20/23 citalopram 40 mg tablet 40 mg PO DAILY 01/20/23 01/20/23 insulin aspart U-100 100 unit/mL 40 unit subcut BID 01/20/23 01/20/23 (3 mL) subcutaneous pen (Novolog FlexPen U-100 Insulin aspart) insulin glargine 100 unit/mL (3 50 unit subcut BID 01/20/23 01/20/23 mL) subcutaneous pen (Basaglar KwikPen U-100 Insulin) levothyroxine 50 mcg tablet 50 mcg PO DAILY 01/20/23 01/20/23 losartan 100 mg tablet 100 mg PO DAILY 01/20/23 01/20/23 metformin 750 mg tablet,extended 1,500 mg PO DAILY 01/20/23 01/20/23 release 24 hr montelukast 10 mg tablet 10 mg PO DAILY 01/20/23 01/20/23 simvastatin 20 mg tablet 20 mg PO DAILY 01/20/23 01/20/23 Previous Rx's Medication Instructions Recorded prednisone 20 mg tablet 40 mg PO DAILY 5 days #10 tabs 09/09/21 Allergies Allergy/AdvReac Type Severity Reaction Status Date / Time rosuvastatin [From CRESTOR] Allergy Unknown Unknown Verified 01/20/23 06:45 Review of Systems Review of Systems: Yes all other systems are reviewed and are negative [facility] Past Medical History Medical History Depression Diabetes mellitus, type 2 Hyperlipidemia Hypertension Pulmonary embolism Rheumatoid arthritis Social History Social History Alcohol intake: unknown Patient Tobacco Use Status: Tobacco use Unknown Advance Directives: No Advance Directives Information Provided: Yes Physical Exam ED Vital Signs: Vital Signs - 24 hr 01/20/23 05:22 Temperature 96.1 F L Pulse Rate 78 Respiratory Rate 20 Blood Pressure 144/56 H Pulse Oximetry 93 Oxygen Delivery Method Room Air BMI result Body Mass Index 47.0 Appearance: Alert. Oriented X2-3. No acute distress. Obese Eyes: PERRLA, No Nystagmus no pallor or icterus ENT: Pharynx normal. Oral Mucosa moist dried blood left nostril atraumatic normocephalic Neck: Normal inspection. Neck supple. CVS: Normal heart rate and rhythm. Pulses normal. Respiratory: No respiratory distress. Equal air entry bilateral, no wheezing/rales/rhonchi Abdomen: Soft and nontender. Bowel sounds are present, no mass palpable, no CVA tenderness Skin: Skin warm and dry. Normal skin color. Normal skin turgor. Extremities: No lower extremity edema. No calf tenderness Neuro: Oriented X 3. No motor deficit. No sensory deficit.No cerebellar signs , cranial nerves II-XII intact Medications Administered Discontinued Medications Generic Name Dose Route Start Last Admin Trade Name Freq PRN Reason Stop Dose Admin Sodium Chloride 1,000 mls @ 999 mls/hr 01/20/23 05:51 01/20/23 06:45 Ns IV 01/20/23 06:51 999 mls/hr .Q1H1M ONE Administration Medical Decision Making Medical Decision Making MDM Narrative: Patient diabetic hyperglycemia likely from poor oral intake. During stay in the ER patient became more alert and oriented blood sugar stayed stable, Workup in progress checkout to rule out any infection as a cause will check CT head rule out any injury after the fall. Patient signed out to Dr. Atkins pending disposition Lab Data [facility] Lab Attestation statement: I reviewed the patient's lab results. 01/20/23 06:43 01/20/23 06:43 Labs: Lab Results 01/20/23 01/20/23 01/20/23 Range/Units 05:12 05:42 06:45 VBG pH 7.50 H (7.32-7.43) VBG pCO2 29 mmHg VBG pO2 149 mmHg VBG HCO3 22 (22-26) mmol/L VBG O2 Saturation 100.0 % VBG Base Excess 0.7 mmol/L POC Glucose 89 92 (60-115) mg/dL Independent Interpretation I performed an independent interpretation of an: EKG Interpretation: Normal sinus rhythm poor progression of R-waves anterior leads no acute ST wave changes no acute ischemia Discharge Plan Discharge Clinical Impression: Hypoglycemia, Acute metabolic encephalopathy Patient Disposition: Still a Patient Prescriptions: No Action prednisone 20 mg tablet 40 mg PO DAILY 5 Days Qty: 10 0RF citalopram 40 mg tablet 40 mg PO DAILY levothyroxine 50 mcg tablet 50 mcg PO DAILY simvastatin 20 mg tablet 20 mg PO DAILY montelukast 10 mg tablet 10 mg PO DAILY losartan 100 mg tablet 100 mg PO DAILY insulin aspart U-100 [Novolog FlexPen U-100 Insulin] 100 unit/mL (3 mL) insulin pen 40 unit subcut BID metformin 750 mg tablet extended release 24 hr 1,500 mg PO DAILY insulin glargine [Basaglar KwikPen U-100 Insulin] 100 unit/mL (3 mL) insulin pen 50 unit subcut BID Eliquis 5 mg tablet 5 mg PO BID
--- NOTE | 2023-01-20 05:50 | ECG_ITS ---
Test Reason : ams Blood Pressure : / mmHG Vent. Rate : 073 BPM Atrial Rate : 073 BPM P-R Int : 188 ms QRS Dur : 076 ms QT Int : 422 ms P-R-T Axes : -09 -11 025 degrees QTc Int : 464 ms Sinus rhythm with occasional Premature ventricular complexes Anteroseptal infarct (cited on or before 20-JAN-2023) Abnormal ECG When compared with ECG of 09-SEP-2021 12:47, Premature ventricular complexes are now Present Nonspecific T wave abnormality now evident in Lateral leads Referred By: Suhas Chávez Electronically Signed By:SARANYA HER MD
--- NOTE | 2023-01-20 06:39 | PC.NURSE ---
urine obtained via straight catheter per provider order, kin care provided and pt repositioned with assist. purewick catheter affixed, stretcher locked in lowest position, call diaz in reach, pt verbalized understanding of use.
[2023-01-20] MEDS: 0.9 % Sodium Chloride 1,000 ML 999 ML IV (06:45)
[2023-01-20 06:49] LABS: MANUAL DIFF FLAG NO
[2023-01-20 06:50] LABS: Venous Blood Gas Refer to POC result
[2023-01-20 06:51] LABS: Appearance Urine Clear; Color Urine Yellow; Glucose Urine UA Negative (Negative); Leukocyte Esterase Urine Negative (Negative); Nitrite Urine Negative (Negative); PH 5.5 (5.0-9.0); Specific Gravity - Urine 1.025 (1.005-1.025); Urine Blood Negative (Negative); Urine Ketones Negative (Negative); Urine Protein Negative (Neg-Trace)
[2023-01-20 06:54] LABS: VBG Base Excess 0.7 mmol/L; VBG HCO3 22 mmol/L (22-26); VBG pCO2 29 mmHg; VBG pO2 149 mmHg
[2023-01-20 06:56] LABS: Basophils Percent Auto 0.3 % (0-2); Hematocrit 35.2 % (37.0-47.0); Hemoglobin 11.7 g/dl (12.0-16.0); Imm Gran Abs Auto 0.04 X10*3/uL (0.00-0.03); Imm Gran Pct Auto 0.6 % (0.0-0.4); Lymphocytes Absolute Auto 0.9 X10*3/uL (1.2-4.9); Lymphocytes Percent Auto 13.7 % (20-40); Mean Corpuscular HGB Conc 33.2 g/dl (31.0-35.0); Mean Corpuscular Hemoglobin 30.8 pg (27.0-33.0); Mean Corpuscular Volume 92.6 fL (80.0-98.0); Mean Platelet Volume 10.3 fL (9.4-12.3); Monocytes Absolute Auto 0.3 X10*3/uL (0.1-1.2); Monocytes Percent Auto 4.3 % (2-11); Neutrophils Absolute Auto 5.3 x10*3/uL (2.0-8.3); Neutrophils Percent Auto 81.1 % (45-73); Platelet Count 124 X10*3/uL (160-400); White Blood Count 6.6 X10*3/uL (4.8-10.8)
--- NOTE | 2023-01-20 07:05 | PC.NURSE ---
Addendum entered by Jazzy Zayas 01/20/23 08:58: unable o order the amp of dextrose 50% do to unavailability, amp was pulled out of the code cart Original Note: pt sugar was rechecked it was 39, pt received dextrose 50% amp push. pt is answering questions appropriately but speech is delayed not sure if this her baseline, pt is aware that she is in the hospital and the date, respirations even and unlabored, ls clear through out all martinez, skin pwd, pt denies pain at this time, ns on the monitor and vs stable
[2023-01-20 07:08] LABS: IDNOW Serial# 6674DD1D
[2023-01-20 07:08] LABS: Glucose, Whole Blood 39 mg/dL (60-115)
[2023-01-20 07:09] LABS: COVID-19 Test Negative (Negative)
[2023-01-20 07:31] LABS: Troponin-I High Sensitivity 29.4 ng/L (<3.5-17.0)
[2023-01-20 07:36] LABS: Glucose, Whole Blood 128 mg/dL (60-115)
[2023-01-20 08:19] LABS: Glucose, Whole Blood 87 mg/dL (60-115)
[2023-01-20] MEDS: Dextrose 10 % 1,000 ML 75 ML IVCONT (08:31)
[2023-01-20 08:44] LABS: Glucose, Whole Blood 83 mg/dL (60-115)
[2023-01-20 09:51] LABS: Glucose, Whole Blood 92 mg/dL (60-115)
[2023-01-20 10:10] LABS: Troponin-I High Sensitivity 23.9 ng/L (<3.5-17.0)
[2023-01-20 10:13] LABS: Alanine Aminotransferase 97 U/L (0-31); Albumin Level 2.9 g/dL (3.5-5.0); Alkaline Phosphatase 147 U/L (39-117); Anion Gap 14 (12-20); Aspartate Amino Transferase 146 U/L (5-31); Bilirubin Total 1.6 mg/dL (0.0-1.0); Blood Urea Nitrogen 35 mg/dL (9-16); Calcium 9.2 mg/dL (8.4-10.2); Carbon Dioxide 21 mmol/L (22-29); Chloride 109 mmol/L (96-108); Estimated Glomerular Filt Rate > 60; Glucose Random 81 mg/dL (60-115); Lipase 38 U/L (8-78); Sodium 139 mmol/L (135-145); Total Protein 6.4 g/dL (6.5-8.0)
[2023-01-20 10:56] LABS: Glucose, Whole Blood 106 mg/dL (60-115)
--- NOTE | 2023-01-20 11:38 | PC.NURSE ---
pt is alert and oriented, pt speech seems to have improved as well-responding quicker and cleared speech. pt has not voided since this rn took over her care at 0700, performed a bladder scan and 132ml in the bladder at this time. pt denies abd pain pt does preset with a visible hand tremor which was not preset earlier
--- NOTE | 2023-01-20 11:47 | P.HPHOSP_ITS ---
History of Present Illness Date of Service: 01/20/23 Attending physician on admission: Suhas Hayward Chief Complaint: hypoglycemia 72-year-old female with asthma/COPD overlap, insulin-dependent type 2 diabetes, hypertension, hypercholesterolemia, hypothyroidism, rheumatoid arthritis, hx PE on eliquis, and morbid obesity with BMI greater than 47 presented to the ED early this morning for evaluation altered mental status and fall out of bed. Patient lives with her sister, Glenys, who assisted ED provider with history. Apparently, the patient took her usual 50 units of Lantus and 40 units of NovoLog yesterday evening but did not eat much stepper. Several hours later the patient reported feeling weak and needed something to eat and had a bowl of ice cream but did not check her sugar. Around 02:30, her sister heard a loud noise and upon entering her room found her sister face down on a carpeted floor and very confused. She did check her sugar at around 04:00 and was 80. By the time EMS arrived at the home, her glucose was 23 and was given half amp D50 and 1 mg glucagon with improvement in glucose to 104. On arrival to the ED, glucose was 89 and patient was sluggish but alert and oriented x2 and still confused. The patient states she has been feeling generally unwell over the last few days. She continues with sob despite treatment with 5 day burst prednisone which she completed 01/16. Feels abd is distended. She denies any fevers, chills, n/v/d, abd pain, urinary symtpoms, wheezing, lightheadedness, headaches, palpititations, or chest pain. She does feel shakey at this time, and most recent glucose level was 106. On arrival, patient mildly hypothermic at 96.1, likely compensatory due to hypoglycemia, vitals otherwise stable. Renal function baseline, electrolyte levels largely within normal limits. AST 146, ALT 97, total bilirubin 1.6, alkaline phosphatase 147. Troponin 29.4, repeat 23.9. UA unremarkable. Head CT and cervical spine CT without any acute abnormality. POC glucose on arrival 39. Gradual improvement to 106 with D10. Pt to be observed for refractory hypoglycemia likely related to insulin use with poor PO intake. Review of Systems Review of Systems: General: No fevers, malaise, unintentional weight loss HEENT: No blurred vision, diplopia. No sore throat, nasal congestion, rhinorrhea, sinus pain, ear pain Cardiovascular: No chest pain, palpitations, or leg edema Respiratory: No shortness of breath, wheezing, cough GI: +abd distension. No abdominal pain, nausea, vomiting, diarrhea, constipation, melena, hematochezia : No dysuria, hematuria, increased urinary frequency, decreased urinary output MSK: No myalgia, back pain Neuro: No headaches, weakness, paresthesias. +shakes Skin: No rashes or lesions [facility] Medical History Asthma-COPD overlap syndrome Depression Diabetes mellitus, type 2 Hyperlipidemia Hypertension Hypothyroidism Pulmonary embolism Rheumatoid arthritis Social History (Updated 01/20/23 @ 12:02 by DAVID Sierra) Alcohol intake: never Patient Tobacco Use Status: Tobacco use Unknown Advance Directives: No Advance Directives Information Provided: Yes Meds Allergies Allergy/AdvReac Type Severity Reaction Status Date / Time rosuvastatin [From CRESTOR] Allergy Unknown Unknown Verified 01/20/23 06:45 Active Medications: Current Medications Acetaminophen (Acetaminophen 325 Mg Tablet) 650 mg PO Q6H PRN PRN Reason: Pain, Mild (Pain Scale 1-3) Docusate Sodium (Docusate Sodium 100 Mg Capsule) 100 mg PO DAILY PRN PRN Reason: Constipation Glucose (Glucose Gel 15 Gm Gel..Gram.) 15 gm PO Q15M PRN; Protocol PRN Reason: per Hypoglycemia Standing Ord. Dextrose (D10) 1,000 mls @ 75 mls/hr IVCONT .[id number] [facility] Last Admin: 01/20/23 08:31 Dose: 75 mls/hr Dextrose (D10) 250 mls @ 750 mls/hr IV Q15M PRN; Protocol PRN Reason: per Hypoglycemia Standing Ord. Ondansetron HCl (Ondansetron Hcl 4 Mg/2 Ml Vial) 4 mg IVPUSH Q8H PRN PRN Reason: Nausea and Vomiting Sodium Chloride (0.9 % Sodium Chloride Flush 3 Ml Syringe) 3 ml IVFLUSH QSHIFT [facility] Home Medications Medication Instructions Recorded Confirmed Last Taken Type albuterol sulfate 90 mcg/actuation 2 puff inhalation Q4H PRN 01/20/23 01/20/23 01/19/23 History aerosol inhaler Shortness Of Breath Or Wheezing apixaban 5 mg tablet (Eliquis) 5 mg PO BID 01/20/23 01/20/23 01/19/23 History citalopram 20 mg tablet 20 mg PO DAILY 01/20/23 01/20/23 01/19/23 History insulin aspart U-100 100 unit/mL 40 unit subcut BID 01/20/23 01/20/23 Unknown History (3 mL) subcutaneous pen (Novolog FlexPen U-100 Insulin aspart) insulin glargine 100 unit/mL (3 50 unit subcut BID 01/20/23 01/20/23 Unknown History mL) subcutaneous pen (Basaglar KwikPen U-100 Insulin) levothyroxine 50 mcg tablet 50 mcg PO DAILY 01/20/23 01/20/23 Unknown History losartan 100 mg tablet 100 mg PO DAILY 01/20/23 01/20/23 Unknown History metformin 750 mg tablet,extended 1,500 mg PO DAILY 01/20/23 01/20/23 Unknown History release 24 hr methotrexate (PF) 25 mg/0.5 mL 25 mg subcut QWEEK 01/20/23 Unknown History subcutaneous auto-injector (Rasuvo (PF)) montelukast 10 mg tablet 10 mg PO DAILY 01/20/23 01/20/23 Unknown History simvastatin 20 mg tablet 20 mg PO DAILY 01/20/23 01/20/23 Unknown History Physical Exam Vital Signs and Narrative: Vital Signs: Last Vital Signs Temp 96.1 F L 01/20/23 05:22 Pulse 82 01/20/23 10:34 Resp 16 01/20/23 10:34 BP 140/77 H 01/20/23 10:34 Pulse Ox 95 01/20/23 10:34 O2 Del Method Room Air 01/20/23 10:34 BMI result Body Mass Index 47.0 Constitutional - Awake and Alert, No apparent distress Eyes - PERRLA, EOMI Cardiovascular - S1S2, RRR, No edema Respiratory - Normal lung expansion, Normal respiratory effort, No respiratory distress, CTA bilaterally Gastrointestinal - abd distended with diffuse ttp without rebound. +BS Extremities - no calf tenderness bilaterally, no swelling Skin - Warm/Dry Neurological - Alert & oriented x3, CN II-XII in tact, 5/5 strength BUE and BLE Psychological - Appropriate affect Results Labs 01/20/23 06:43 01/20/23 09:28 Labs: Laboratory Results - last 24 hr 01/20/23 01/20/23 01/20/23 05:12 05:42 06:20 MCV MCH MCHC RDW Plt Count MPV Immature Gran % (Auto) Neut % (Auto) Lymph % (Auto) [place] % (Auto) Eos % (Auto) Baso % (Auto) Lymph # (Auto) [place] # (Auto) Eos # (Auto) Baso # (Auto) Abs Immat Gran (auto) Absolute Neuts (auto) Absolute Nucleated RBC Nucleated RBC % (auto) VBG pH VBG pCO2 VBG pO2 VBG HCO3 VBG O2 Saturation VBG Base Excess Anion Gap Estim Creat Clear Calc Estimated GFR POC Glucose 89 92 Random Glucose Calcium Magnesium Total Bilirubin AST ALT Alkaline Phosphatase Troponin I High Sens Total Protein Albumin Lipase Urine Color Yellow Urine Appearance Clear Urine pH 5.5 Ur Specific [place] 1.025 Urine Protein Negative Urine Glucose (UA) Negative Urine Ketones Negative Urine Blood Negative Urine Nitrite Negative Ur Leukocyte Esterase Negative COVID-19 (KATHERIN) COVID-19 [place] 01/20/23 01/20/23 01/20/23 06:43 06:43 06:43 MCV 92.6 MCH 30.8 MCHC 33.2 RDW 15.0 Plt Count 124 L D MPV 10.3 Immature Gran % (Auto) 0.6 H Neut % (Auto) 81.1 H Lymph % (Auto) 13.7 L [place] % (Auto) 4.3 Eos % (Auto) 0.0 Baso % (Auto) 0.3 Lymph # (Auto) 0.9 L [place] # (Auto) 0.3 Eos # (Auto) 0.0 Baso # (Auto) 0.0 Abs Immat Gran (auto) 0.04 H Absolute Neuts (auto) 5.3 Absolute Nucleated RBC 0.000 Nucleated RBC % (auto) 0.0 VBG pH VBG pCO2 VBG pO2 VBG HCO3 VBG O2 Saturation VBG Base Excess Anion Gap Estim Creat Clear Calc Estimated GFR POC Glucose Random Glucose Calcium Magnesium Total Bilirubin AST ALT Alkaline Phosphatase Troponin I High Sens 29.4 H Total Protein Albumin Lipase Urine Color Urine Appearance Urine pH Ur Specific [place] Urine Protein Urine Glucose (UA) Urine Ketones Urine Blood Urine Nitrite Ur Leukocyte Esterase COVID-19 (KATHERIN) Negative COVID-19 [facility] Com See Note 01/20/23 01/20/23 01/20/23 06:45 07:04 07:33 MCV MCH MCHC RDW Plt Count MPV Immature Gran % (Auto) Neut % (Auto) Lymph % (Auto) [place] % (Auto) Eos % (Auto) Baso % (Auto) Lymph # (Auto) [place] # (Auto) Eos # (Auto) Baso # (Auto) Abs Immat Gran (auto) Absolute Neuts (auto) Absolute Nucleated RBC Nucleated RBC % (auto) VBG pH 7.50 H VBG pCO2 29 VBG pO2 149 VBG HCO3 22 VBG O2 Saturation 100.0 VBG Base Excess 0.7 Anion Gap Estim Creat Clear Calc Estimated GFR POC Glucose 39 L* 128 H Random Glucose Calcium Magnesium Total Bilirubin AST ALT Alkaline Phosphatase Troponin I High Sens Total Protein Albumin Lipase Urine Color Urine Appearance Urine pH Ur Specific [place] Urine Protein Urine Glucose (UA) Urine Ketones Urine Blood Urine Nitrite Ur Leukocyte Esterase COVID-19 (KATHERIN) COVID-[place]aergia 01/20/23 01/20/23 01/20/23 08:15 08:41 09:28 MCV MCH MCHC RDW Plt Count MPV Immature Gran % (Auto) Neut % (Auto) Lymph % (Auto) [place] % (Auto) Eos % (Auto) Baso % (Auto) Lymph # (Auto) [place] # (Auto) Eos # (Auto) Baso # (Auto) Abs Immat Gran (auto) Absolute Neuts (auto) Absolute Nucleated RBC Nucleated RBC % (auto) VBG pH VBG pCO2 VBG pO2 VBG HCO3 VBG O2 Saturation VBG Base Excess Anion Gap 14 Estim Creat Clear Calc 77.0 Estimated GFR > 60 POC Glucose 87 83 Random Glucose 81 Calcium 9.2 D Magnesium 2.0 Total Bilirubin 1.6 H AST 146 H ALT 97 H Alkaline Phosphatase 147 H Troponin I High Sens Total Protein 6.4 L Albumin 2.9 L Lipase 38 Urine Color Urine Appearance Urine pH Ur Specific [place] Urine Protein Urine Glucose (UA) Urine Ketones Urine Blood Urine Nitrite Ur Leukocyte Esterase COVID-19 (KATHERIN) COVID-Anaergia 01/20/23 01/20/23 01/20/23 09:28 09:48 10:52 MCV MCH MCHC RDW Plt Count MPV Immature Gran % (Auto) Neut % (Auto) Lymph % (Auto) [place] % (Auto) Eos % (Auto) Baso % (Auto) Lymph # (Auto) [place] # (Auto) Eos # (Auto) Baso # (Auto) Abs Immat Gran (auto) Absolute Neuts (auto) Absolute Nucleated RBC Nucleated RBC % (auto) VBG pH VBG pCO2 VBG pO2 VBG HCO3 VBG O2 Saturation VBG Base Excess Anion Gap Estim Creat Clear Calc Estimated GFR POC Glucose 92 106 Random Glucose Calcium Magnesium Total Bilirubin AST ALT Alkaline Phosphatase Troponin I High Sens 23.9 H Total Protein Albumin Lipase Urine Color Urine Appearance Urine pH Ur Specific [place] Urine Protein Urine Glucose (UA) Urine Ketones Urine Blood Urine Nitrite Ur Leukocyte Esterase COVID-19 (KATHERIN) COVID-19 Clin Com Imaging Radiologist's Impressions: Impressions Cervical Spine CT 01/20/23 07:57 IMPRESSION: Head CT: No acute findings. Cervical spine CT: Mild degenerative changes. No fracture or dislocation. Head CT 01/20/23 07:57 IMPRESSION: Head CT: No acute findings. Cervical spine CT: Mild degenerative changes. No fracture or dislocation. Assessment and Plan (1) Hypoglycemia: Status: Acute (2) Acute metabolic encephalopathy: Status: Acute Plan 72-year-old female with asthma/COPD overlap, insulin-dependent type 2 diabetes, hypertension, hypercholesterolemia, hypothyroidism, rheumatoid arthritis, hx PE on eliquis, and morbid obesity with BMI greater than 47 to be observed for refractory hypoglycemia. #Acute hypoglycemia- likely related to insulin use and poor PO intake -Will rule out infectious etiology. UA unremarkable. CT chest and abd pelvis pending -On arrival glucose 39, improved to 106 with D10 -Continue IV D10 -POC glucose q1h -Hold insulin at this time -Diabetic diet -Vitals stable, mentation improved #Acute metabolic encephalopathy- improving though patient still sluggish -secondary to hypoglycemia -as above #Controlled insulin dependent type 2 diabetes -A1c 6.2 -Hold insulin at this time -Insulin doses should be adjusted given low HgbA1c, goal <8.0 in 72 y/o patient, to prevent hypoglycemia -POC glucose -Diabetic diet #Asthma/COPD overlap- no acute exacerbation -reporting SOB, but no wheezing or hypoxia -Chest CT ordered to investigate other possible causes of hypoglycemia -Albuterol prn #Abd pain/distension -CT abd/pelvis ordered #Transaminitis- chronic -AST/ALT/Bili Slightly elevated from baseline, but chronically elevated per [facility] labs -Likely r/t GRIMES/NAFLD -Follow outpt #Hypothyroidism -continue levothyroxine -TSH w/ free t4 added #Rheumatoid arthritis- stable -continue home meds #Hx PE -continue eliquis #Morbid obesity- BMI >47 -r/t excess calorie intake and insulin resistance -weight loss efforts discussed DVT prophylaxis- on eliquis Full code Time Spent With Patient Time: Total time managing care of this patient today ____ minutes. Quality Stroke Does the patient have a stroke diagnosis?: No VTE Prior VTE?: Yes VTE Risk Level:: Medical - moderate - high VTE Device Contraindication: Treatment Not Indicated VTE Drug Contraindication: N/A - Med Ordered
[2023-01-20 11:48] LABS: Estimated Average Glucose 131 mg/dL; Hemoglobin A1c % 6.2 %
--- NOTE | 2023-01-20 12:21 | PHA.MEDREC ---
Pharmacy Consult ? Medication Reconciliation Pharmacy has completed the medication reconciliation. Reviewed med rec done by nursing and found discrepancies based on claim history. Spoke to patient and found several errors. Those errors were corrected and med rec complete by pharmacy.
[2023-01-20 12:23] LABS: Glucose, Whole Blood 155 mg/dL (60-115)
[2023-01-20] MEDS: Levothyroxine Sodium 50 MCG TABLET PO (12:25)
[2023-01-20] MEDS: Apixaban 5 MG TABLET PO ×2 (12:26→22:30)
[2023-01-20] MEDS: Montelukast Sodium 10 MG TABLET PO (12:26)
[2023-01-20] MEDS: Losartan Potassium 50 MG TABLET 100 MG PO (12:26)
[2023-01-20 14:16] LABS: Glucose, Whole Blood 258 mg/dL (60-115)
[2023-01-20 16:54] LABS: Glucose, Whole Blood 269 mg/dL (60-115)
--- NOTE | 2023-01-20 17:03 | PC.NURSE ---
pt's iv was found half out and not working any more, new iv inserted in the right axillary area
--- NOTE | 2023-01-20 17:54 | PC.NURSE ---
RN to RN report given to
[2023-01-20] MEDS: Insulin Lispro 100 UNIT/ML 3 ML VIAL SUBCUT ×2 (18:03→22:31)
[2023-01-20 18:49] LABS: Glucose, Whole Blood 239 mg/dL (60-115)
[2023-01-20 20:22] LABS: Glucose, Whole Blood 211 mg/dL (60-115)
[2023-01-20 22:22] LABS: Glucose, Whole Blood 204 mg/dL (60-115)
[2023-01-20] MEDS: Insulin Glargine,Hum.rec.anlog 100 UNIT/ML 10 ML VIAL 25 UNIT SUBCUT (22:30)
[2023-01-20] MEDS: Dextrose 5 % and 0.9 % NaCl 1,000 ML 80 ML IVCONT (22:31)
[2023-01-20 23:56] LABS: Glucose, Whole Blood 192 mg/dL (60-115)
[2023-01-21] VITALS (8 sets, daily range): BP systolic 116–140; BP diastolic 54–62; PULSE 82–99; RESP 16–22; TEMP 35.8–37.1; O2SAT 93–96
[2023-01-21 01:47] LABS: Glucose, Whole Blood 156 mg/dL (60-115)
--- NOTE | 2023-01-21 02:22 | PC.NURSE ---
Pt arrived on unit around 18:55. See charting for complete admission. New IV started. Dr Kirk changed IV fluids and POC's from Q1 hr to Q2 hours. VSS. Telemetry, SR. Pt sleeping comfortably in bed with no c/o dizziness/weakness/discomfort. POC checks Q2 hours and IV fluids infusing as ordered. Bed alarm on for patient safety. Call diaz within reach.
[2023-01-21 03:45] LABS: Glucose, Whole Blood 140 mg/dL (60-115)
[2023-01-21] MEDS: Levothyroxine Sodium 50 MCG TABLET PO (05:55)
[2023-01-21 05:58] LABS: Glucose, Whole Blood 113 mg/dL (60-115)
[2023-01-21 06:16] LABS: MANUAL DIFF FLAG NO
[2023-01-21 06:21] LABS: Basophils Percent Auto 0.5 % (0-2); Eosinophils Absolute Auto 0.4 X10*3/uL (0.0-0.4); Eosinophils Percent Auto 5.5 % (0-4); Hematocrit 31.6 % (37.0-47.0); Hemoglobin 10.3 g/dl (12.0-16.0); Imm Gran Abs Auto 0.02 X10*3/uL (0.00-0.03); Imm Gran Pct Auto 0.3 % (0.0-0.4); Mean Corpuscular HGB Conc 32.6 g/dl (31.0-35.0); Mean Corpuscular Hemoglobin 30.5 pg (27.0-33.0); Mean Corpuscular Volume 93.5 fL (80.0-98.0); Mean Platelet Volume 10.9 fL (9.4-12.3); Monocytes Absolute Auto 0.5 X10*3/uL (0.1-1.2); Neutrophils Absolute Auto 3.7 x10*3/uL (2.0-8.3); Neutrophils Percent Auto 55.7 % (45-73); Platelet Count 124 X10*3/uL (160-400); Red Blood Count 3.38 X10*6/uL (4.20-5.50); Red Cell Distribution Width 15.1 % (11.0-16.0); White Blood Count 6.6 X10*3/uL (4.8-10.8)
[2023-01-21 06:38] LABS: Alanine Aminotransferase 71 U/L (0-31); Albumin Level 2.5 g/dL (3.5-5.0); Alkaline Phosphatase 114 U/L (39-117); Anion Gap 10 (12-20); Aspartate Amino Transferase 88 U/L (5-31); Bilirubin Total 1.6 mg/dL (0.0-1.0); Blood Urea Nitrogen 30 mg/dL (9-16); Calcium 8.7 mg/dL (8.4-10.2); Carbon Dioxide 25 mmol/L (22-29); Chloride 107 mmol/L (96-108); Creatinine Clr Calc Pharmacy 73.7; Estimated Glomerular Filt Rate > 60; Glucose Random 109 mg/dL (60-115); Potassium 4.7 mmol/L (3.3-5.1); Sodium 137 mmol/L (135-145); Total Protein 5.4 g/dL (6.5-8.0)
[2023-01-21 07:17] LABS: Glucose, Whole Blood 121 mg/dL (60-115)
[2023-01-21] MEDS: Losartan Potassium 50 MG TABLET 100 MG PO (07:43)
[2023-01-21] MEDS: Calcium + Vitamin D 250 MG TABLET 500 MG PO (07:43)
[2023-01-21] MEDS: Escitalopram Oxalate 20 MG TABLET PO (07:43)
[2023-01-21] MEDS: Atorvastatin Calcium 10 MG TABLET PO (07:43)
[2023-01-21] MEDS: Montelukast Sodium 10 MG TABLET PO (07:43)
[2023-01-21] MEDS: Ferrous Sulfate 324 MG TABLET.DR PO (07:43)
[2023-01-21] MEDS: Apixaban 5 MG TABLET PO ×2 (07:44→20:09)
[2023-01-21] MEDS: Escitalopram Oxalate 10 MG TABLET PO (07:44)
[2023-01-21] MEDS: 0.9 % Sodium Chloride Flush 3 ML SYRINGE IVFLUSH ×3 (07:45→20:14)
[2023-01-21] MEDS: Fluticasone/Vilanterol 200/25 BLST.W.DEV 1 PUFF INHALE (08:19)
--- NOTE | 2023-01-21 09:22 | MHC.CM.PN ---
CM met with Patient at bedside and addressed LEI with her, providing her with the original and placing a copy on the chart. Patient lives in a house with her Sister/HCP/Glenys and her [id number] and she uses a cane/walker/w/c to assist with mobility. Patient had no services OUTSIDE [employer] and home vs home with new vna, pending PT eval is the tentative plan. CM has initiated and will follow for dc planning. Patient is covid vax x4 and the PCP is Dr. Aydin Leo.
[2023-01-21 09:26] LABS: Glucose, Whole Blood 201 mg/dL (60-115)
--- NOTE | 2023-01-21 10:27 | HO.PM.IMPN ---
Subjective Subjective Date of Service: 01/21/23 Interval History: feeling better Physical Exam Vital Signs: Vital Signs: Last Vital Signs Temp 97.4 F 01/21/23 07:29 Pulse 82 01/21/23 08:20 Resp 16 01/21/23 08:20 BP 128/61 01/21/23 07:29 Pulse Ox 95 01/21/23 07:29 O2 Del Method Room Air 01/21/23 07:29 BMI result Body Mass Index 47.0 General: AO X 3, no acute distress Resp: CTA bilateral, no accessory muscles used CVS: S1,S2,RRR GI: soft, non tender, non distended Neuro: motor grossly intact, alert Psych: appropriate affect, appropriate insight Objective Data Active Medications Acetaminophen (Acetaminophen 325 Mg Tablet) 650 mg PO Q6H PRN PRN Reason: Pain, Mild (Pain Scale 1-3) Albuterol Sulfate (Albuterol Sulfate (0.083%) 2.5 Mg/3 Ml Vial.Neb) 2.5 mg INHALE Q4H PRN PRN Reason: asthma Albuterol Sulfate (Albuterol Sulfate 90 Mcg 8 Gm Inhaler) 2 puff INHALE Q4H PRN PRN Reason: Shortness Of Breath Or Wheezing Apixaban (Apixaban 5 Mg Tablet) 5 mg PO BID FOR[facility]LY [facility], [facility] Last Admin: 01/21/23 07:44 Dose: 5 mg Documented By: DEONTE Atorvastatin Calcium (Atorvastatin Calcium 10 Mg Tablet) 10 mg PO DAILY FOR[facility]LY [facility], [facility] Last Admin: 01/21/23 07:43 Dose: 10 mg Documented By: DEONTE Calcium Carbonate/Cholecalciferol (Calcium + Vitamin D 250 Mg Tablet) 500 mg PO DAILY [facility], [facility] Last Admin: 01/21/23 07:43 Dose: 500 mg Documented By: DEONTE Docusate Sodium (Docusate Sodium 100 Mg Capsule) 100 mg PO DAILY PRN PRN Reason: Constipation Escitalopram Oxalate (Escitalopram Oxalate 20 Mg Tablet) 20 mg PO DAILY FOR[facility]LY [facility], [facility] Last Admin: 01/21/23 07:43 Dose: 20 mg Documented By: DEONTE Escitalopram Oxalate (Escitalopram Oxalate 10 Mg Tablet) 10 mg PO DAILY [facility], [facility] Last Admin: 01/21/23 07:44 Dose: 10 mg Documented By: DEONTE Ferrous Sulfate (Ferrous Sulfate 324 Mg Tablet.) 324 mg PO DAILY FOR[facility], [facility] Last Admin: 01/21/23 07:43 Dose: 324 mg Documented By: DEONTE Fluticasone/Vilanterol (Fluticasone/Vilanterol 200/25 Blst.W.Dev) 1 puff INHALE RDAILY [facility], [facility] Last Admin: 01/21/23 08:19 Dose: 1 puff Documented By: PIERCE Glucose (Glucose Gel 15 Gm Gel..Gram.) 15 gm PO Q15M PRN; Protocol PRN Reason: per Hypoglycemia Standing Ord. Dextrose (D10) 250 mls @ 750 mls/hr IV Q15M PRN; Protocol PRN Reason: per Hypoglycemia Standing Ord. Insulin Glargine (Insulin Glargine,Hum.Rec.Anlog 100 Unit/Ml 10 Ml Vial) 25 unit SUBCUT BID [facility], [facility] Last Admin: 01/21/23 08:42 Dose: Not Given Documented By: DEONTE Non-Admin Reason: Physician Held Med Insulin Human Lispro (Insulin Lispro 100 Unit/Ml 3 Ml Vial) 0 unit SUBCUT QIDACHS [facility], [facility]; Protocol Last Admin: 01/21/23 07:33 Dose: Not Given Documented By: DEONTE Non-Admin Reason: No Insulin Coverage Levothyroxine Sodium (Levothyroxine Sodium 50 Mcg Tablet) 50 mcg PO DAILY@0600 [facility], [facility] Last Admin: 01/21/23 05:55 Dose: 50 mcg Documented By: IRIS Losartan Potassium (Losartan Potassium 50 Mg Tablet) 100 mg PO DAILY [facility], [facility]; Protocol Last Admin: 01/21/23 07:43 Dose: 100 mg Documented By: DEONTE Montelukast Sodium (Montelukast Sodium 10 Mg Tablet) 10 mg PO DAILY [facility] Last Admin: 01/21/23 07:43 Dose: 10 mg Documented By: DEONTE Non-Formulary Medication (Methotrexate (Pf) [Rasuvo (Pf)]) 25 mg SUBCUT RIOS [facility], [facility]1983 Ondansetron HCl (Ondansetron Hcl 4 Mg/2 Ml Vial) 4 mg IVPUSH Q8H PRN PRN Reason: Nausea and Vomiting Sodium Chloride (0.9 % Sodium Chloride Flush 3 Ml Syringe) 3 ml IVFLUSH QSHIFT [facility], [facility] Last Admin: 01/21/23 07:45 Dose: 3 ml Documented By: DEONTE Labs 01/21/23 06:06 01/21/23 06:06 Labs: Laboratory Results - last 24 hr 01/20/23 01/20/23 01/20/23 06:43 09:28 10:52 MCV MCH MCHC RDW Plt Count MPV Immature Gran % (Auto) Neut % (Auto) Lymph % (Auto) [place] % (Auto) Eos % (Auto) Baso % (Auto) Lymph # (Auto) [place] # (Auto) Eos # (Auto) Baso # (Auto) Abs Immat Gran (auto) Absolute Neuts (auto) Absolute Nucleated RBC Nucleated RBC % (auto) Anion Gap Estim Creat Clear Calc Estimated GFR POC Glucose 106 Random Glucose Estimat Average Glucose 131 Hemoglobin A1c % 6.2 Calcium Total Bilirubin AST ALT Alkaline Phosphatase Total Protein Albumin TSH 1.00 01/20/23 01/20/23 01/20/23 12:19 14:11 16:49 MCV MCH MCHC RDW Plt Count MPV Immature Gran % (Auto) Neut % (Auto) Lymph % (Auto) [place] % (Auto) Eos % (Auto) Baso % (Auto) Lymph # (Auto) [place] # (Auto) Eos # (Auto) Baso # (Auto) Abs Immat Gran (auto) Absolute Neuts (auto) Absolute Nucleated RBC Nucleated RBC % (auto) Anion Gap Estim Creat Clear Calc Estimated GFR POC Glucose 155 H 258 H 269 H Random Glucose Estimat Average Glucose Hemoglobin A1c % Calcium Total Bilirubin AST ALT Alkaline Phosphatase Total Protein Albumin TSH 01/20/23 01/20/23 01/20/23 18:46 20:18 22:20 MCV MCH MCHC RDW Plt Count MPV Immature Gran % (Auto) Neut % (Auto) Lymph % (Auto) [place] % (Auto) Eos % (Auto) Baso % (Auto) Lymph # (Auto) [place] # (Auto) Eos # (Auto) Baso # (Auto) Abs Immat Gran (auto) Absolute Neuts (auto) Absolute Nucleated RBC Nucleated RBC % (auto) Anion Gap Estim Creat Clear Calc Estimated GFR POC Glucose 239 H 211 H 204 H Random Glucose Estimat Average Glucose Hemoglobin A1c % Calcium Total Bilirubin AST ALT Alkaline Phosphatase Total Protein Albumin TSH 01/20/23 01/21/23 01/21/23 23:52 01:42 03:28 MCV MCH MCHC RDW Plt Count MPV Immature Gran % (Auto) Neut % (Auto) Lymph % (Auto) [place] % (Auto) Eos % (Auto) Baso % (Auto) Lymph # (Auto) [place] # (Auto) Eos # (Auto) Baso # (Auto) Abs Immat Gran (auto) Absolute Neuts (auto) Absolute Nucleated RBC Nucleated RBC % (auto) Anion Gap Estim Creat Clear Calc Estimated GFR POC Glucose 192 H 156 H 140 H Random Glucose Estimat Average Glucose Hemoglobin A1c % Calcium Total Bilirubin AST ALT Alkaline Phosphatase Total Protein Albumin TSH 01/21/23 01/21/23 01/21/23 05:38 06:06 06:06 MCV 93.5 MCH 30.5 MCHC 32.6 RDW 15.1 Plt Count 124 L MPV 10.9 Immature Gran % (Auto) 0.3 Neut % (Auto) 55.7 Lymph % (Auto) 31.0 [place] % (Auto) 7.0 Eos % (Auto) 5.5 H Baso % (Auto) 0.5 Lymph # (Auto) 2.0 [place] # (Auto) 0.5 Eos # (Auto) 0.4 Baso # (Auto) 0.0 Abs Immat Gran (auto) 0.02 Absolute Neuts (auto) 3.7 Absolute Nucleated RBC 0.000 Nucleated RBC % (auto) 0.0 Anion Gap 10 L Estim Creat Clear Calc 73.7 Estimated GFR > 60 POC Glucose 113 Random Glucose 109 Estimat Average Glucose Hemoglobin A1c % Calcium 8.7 Total Bilirubin 1.6 H AST 88 H ALT 71 H Alkaline Phosphatase 114 Total Protein 5.4 L Albumin 2.5 L TSH 01/21/23 01/21/23 07:12 09:22 MCV MCH MCHC RDW Plt Count MPV Immature Gran % (Auto) Neut % (Auto) Lymph % (Auto) [place] % (Auto) Eos % (Auto) Baso % (Auto) Lymph # (Auto) [place] # (Auto) Eos # (Auto) Baso # (Auto) Abs Immat Gran (auto) Absolute Neuts (auto) Absolute Nucleated RBC Nucleated RBC % (auto) Anion Gap Estim Creat Clear Calc Estimated GFR POC Glucose 121 H 201 H Random Glucose Estimat Average Glucose Hemoglobin A1c % Calcium Total Bilirubin AST ALT Alkaline Phosphatase Total Protein Albumin TSH Assessment and Plan (1) Hypoglycemia: Status: Acute Plan 72F PMH with asthma/COPD overlap, insulin-dependent type 2 diabetes, hypertension, hypercholesterolemia, hypothyroidism, rheumatoid arthritis, hx PE on eliquis, and morbid obesity with BMI greater than 47 presented with ams and hypoglycemia DM with acute hypoglycemia complicated by metabolic encephalopathy mental status back to baseline monitor sugars off D5Ns sliding scale insulin and half dose long acting mild intermittent Asthma/COPD overlap- no acute exacerbation Albuterol prn ?liver cirrhosis/portal hypertension with ascites possibly GRIMES vs Autoimmune check viral hepatitis outpatient gi Hypothyroidism continue levothyroxine Rheumatoid arthritis- stable MTX weekly Hx PE continue eliquis Morbid obesity- BMI >47 r/t excess calorie intake and insulin resistance weight loss efforts discussed DVT prophylaxis- on eliquis Full code reason for continued hospitalization:monitoring of D5 to see if can maintain sugars on own Time Spent With Patient Time: Total time managing care of this patient today ____ minutes. Quality Stroke Does the patient have a stroke diagnosis?: No VTE Prior VTE?: Yes VTE Risk Level:: Medical - moderate - high VTE Device Contraindication: Treatment Not Indicated VTE Drug Contraindication: N/A - Med Ordered
[2023-01-21 11:10] LABS: Glucose, Whole Blood 232 mg/dL (60-115)
[2023-01-21] MEDS: Insulin Lispro 100 UNIT/ML 3 ML VIAL SUBCUT ×3 (11:24→20:10)
[2023-01-21 16:15] LABS: Glucose, Whole Blood 216 mg/dL (60-115)
[2023-01-21 20:03] LABS: Glucose, Whole Blood 287 mg/dL (60-115)
[2023-01-21] MEDS: Albuterol Sulfate (0.083%) 2.5 MG/3 ML VIAL.NEB INHALE (20:09)
[2023-01-21] MEDS: Insulin Glargine,Hum.rec.anlog 100 UNIT/ML 10 ML VIAL 25 UNIT SUBCUT (20:10)
[2023-01-22 04:00] VITALS: BP 120/56; PULSE 86; RESP 20; TEMP 36.6; O2SAT 94
[2023-01-22 06:09] LABS: Hematocrit 28.9 % (37.0-47.0); Hemoglobin 9.5 g/dl (12.0-16.0); Mean Corpuscular HGB Conc 32.9 g/dl (31.0-35.0); Mean Corpuscular Hemoglobin 30.4 pg (27.0-33.0); Mean Corpuscular Volume 92.6 fL (80.0-98.0); Mean Platelet Volume 10.2 fL (9.4-12.3); Platelet Count 113 X10*3/uL (160-400); Red Blood Count 3.12 X10*6/uL (4.20-5.50); Red Cell Distribution Width 15.1 % (11.0-16.0)
[2023-01-22 06:23] LABS: Anion Gap 9 (12-20); Blood Urea Nitrogen 31 mg/dL (9-16); Calcium 8.5 mg/dL (8.4-10.2); Carbon Dioxide 26 mmol/L (22-29); Chloride 109 mmol/L (96-108); Creatinine Clr Calc Pharmacy 56.7; Estimated Glomerular Filt Rate 45; Glucose Fasting 94 mg/dL (60-99); Potassium 4.5 mmol/L (3.3-5.1); Sodium 139 mmol/L (135-145)
[2023-01-22] MEDS: Levothyroxine Sodium 50 MCG TABLET PO (06:38)
[2023-01-22 07:21] LABS: Glucose, Whole Blood 98 mg/dL (60-115)
[2023-01-22 07:50] VITALS: BP 119/58; PULSE 81; RESP 20; TEMP 36.2; O2SAT 94
[2023-01-22 07:58] VITALS: PULSE 84; RESP 16; O2SAT 93
[2023-01-22] MEDS: Fluticasone/Vilanterol 200/25 BLST.W.DEV 1 PUFF INHALE (07:58)
--- NOTE | 2023-01-22 08:46 | PM.DS ---
DS: Providers Provider Date of Service: 01/22/23 Date of admission: 01/20/23 11:37 Primary care physician: Aydin Leo MD DS: Diagnosis Discharge Diagnosis (1) Hypoglycemia: Status: Acute DS: Summary Hospital Course Hospital Course: from initial hpi: Chief Complaint: hypoglycemia 72-year-old female with asthma/COPD overlap, insulin-dependent type 2 diabetes, hypertension, hypercholesterolemia, hypothyroidism, rheumatoid arthritis, hx PE on eliquis, and morbid obesity with BMI greater than 47 presented to the ED early this morning for evaluation altered mental status and fall out of bed.? Patient lives with her sister, Glenys, who assisted ED provider with history.? Apparently, the patient took her usual 50 units of Lantus and 40 units of NovoLog yesterday evening but did not eat much stepper.? Several hours later the patient reported feeling weak and needed something to eat and had a bowl of ice cream but did not check her sugar.? Around 02:30, her sister heard a loud noise and upon entering her room found her sister face down on a carpeted floor and very confused.? She did check her sugar at around 04:00 and was 80.? By the time EMS arrived at the home, her glucose was 23 and was given half amp D50 and 1 mg glucagon with improvement in glucose to 104.? On arrival to the ED, glucose was 89 and patient was sluggish but alert and oriented x2 and still confused.? The patient states she has been feeling generally unwell over the last few days. She continues with sob despite treatment with 5 day burst prednisone which she completed 01/16. Feels abd is distended. She denies any fevers, chills, n/v/d, abd pain, urinary symtpoms, wheezing, lightheadedness, headaches, palpititations, or chest pain. She does feel shakey at this time, and most recent glucose level was 106. On arrival, patient mildly hypothermic at 96.1, likely compensatory due to hypoglycemia, vitals otherwise stable.? Renal function baseline, electrolyte levels largely within normal limits.? AST 146, ALT 97, total bilirubin 1.6, alkaline phosphatase 147.? Troponin 29.4, repeat 23.9.? UA unremarkable. Head CT and cervical spine CT without any acute abnormality. POC glucose on arrival 39. Gradual improvement to 106 with D10. Pt to be observed for refractory hypoglycemia likely related to insulin use with poor PO intake. hospital course: Patient was admitted for diabetes with acute hypoglycemia complicated by metabolic encephalopathy. she was given IV fluids containing D5 and sugars stabilized and mental status returned to baseline. She was given half of for glargine does and was able to maintain off of IV D5. On discharge will reduce glargine to 40 b.i.d. and should monitor and adjust accordingly. For her question of liver cirrhosis/ portal hypertension with ascites most likely etiologies include GRIMES versus autoimmune. Viral hepatitis panel was drawn and is pending. Patient will be referred to Gastroenterology as outpatient. For mild intermittent asthma/ COPD overlap she was not in acute exacerbation and should continue albuterol p.r.n.. For hypothyroid she was continue on Synthroid. For mood arthritis she is on methotrexate weekly. For history of pulmonary embolism she was continued on Eliquis. For morbid obesity weight loss is recommended. Patient is feeling better will be discharged home. Time Spent with Patient Time attestation: Total time managing care of this patient today ____ minutes. Discharge coordination time: Greater than 30 minutes Quality: Safe Use of Opioids Does Pt have an Active Cancer Diagnosis on the Problem List?: No Quality: Stroke Does the patient have a stroke diagnosis?: No Physical Exam Vital Signs: Vital Signs: Last Vital Signs Temp 97.1 F 01/22/23 07:50 Pulse 84 01/22/23 07:58 Resp 16 01/22/23 07:58 BP 119/58 L 01/22/23 07:50 Pulse Ox 94 01/22/23 07:50 O2 Del Method Room Air 01/22/23 07:50 BMI result Body Mass Index 47.0 General: AO X 3, no acute distress Resp: CTA bilateral, no accessory muscles used CVS: S1,S2,RRR DS: Data Data Completed and Pending Labs on day of discharge: Laboratory Results - last 24 hr 01/21/23 01/21/23 01/21/23 09:22 11:04 16:09 WBC RBC Hgb Hct MCV MCH MCHC RDW Plt Count MPV Absolute Nucleated RBC Nucleated RBC % (auto) Sodium Potassium Chloride Carbon Dioxide Anion Gap BUN Creatinine Estim Creat Clear Calc Estimated GFR POC Glucose 201 H 232 H 216 H Fasting Glucose Calcium 01/21/23 01/22/23 01/22/23 19:58 05:53 05:53 WBC 5.0 RBC 3.12 L Hgb 9.5 L Hct 28.9 L MCV 92.6 MCH 30.4 MCHC 32.9 RDW 15.1 Plt Count 113 L MPV 10.2 Absolute Nucleated RBC 0.000 Nucleated RBC % (auto) 0.0 Sodium 139 Potassium 4.5 Chloride 109 H Carbon Dioxide 26 Anion Gap 9 L BUN 31 H Creatinine 1.17 Estim Creat Clear Calc 56.7 Estimated GFR 45 POC Glucose 287 H Fasting Glucose 94 Calcium 8.5 01/22/23 07:17 WBC RBC Hgb Hct MCV MCH MCHC RDW Plt Count MPV Absolute Nucleated RBC Nucleated RBC % (auto) Sodium Potassium Chloride Carbon Dioxide Anion Gap BUN Creatinine Estim Creat Clear Calc Estimated GFR POC Glucose 98 Fasting Glucose Calcium Discharge Plan Discharge Anticipated Discharge Date/Time: 01/22/23 08:41 Patient Disposition: Home, Self-Care Discharge Diagnosis: hypoglycemia, portal htn Referrals: Aydin Leo MD [Primary Care Provider] - 1 Week Maricarmen Smith MD [Physician] - 1 Week (?cirrhosis) Discharge Medications: Continued levothyroxine 50 mcg tablet 50 mcg PO DAILY@0600 simvastatin 20 mg tablet 20 mg PO BEDTIME montelukast 10 mg tablet 10 mg PO BEDTIME losartan 100 mg tablet 100 mg PO DAILY insulin aspart U-100 [Novolog FlexPen U-100 Insulin] 100 unit/mL (3 mL) insulin pen 40 unit subcut TID metformin 750 mg tablet extended release 24 hr 750 mg PO DAILY Eliquis 5 mg tablet 5 mg PO BID albuterol sulfate 90 mcg/actuation HFA aerosol inhaler 2 puff INHALATION Q4H PRN (Reason: Shortness Of Breath Or Wheezing) Rasuvo (PF) 25 mg/0.5 mL auto-injector 25 mg subcut RIOS citalopram 20 mg tablet 20 mg PO DAILY albuterol sulfate 2.5 mg /3 mL (0.083 %) solution for nebulization 2.5 mg inhalation Q4H PRN (Reason: asthma) fluticasone propion-salmeterol [Advair Diskus] 500-50 mcg/dose blister with device 1 ea inhalation BID calcium carbonate-vitamin D3 600 mg-5 mcg (200 unit) Tablet 1 tab PO DAILY ferrous sulfate 325 mg (65 mg iron) Tablet 325 mg PO DAILY Changed insulin glargine [Basaglar KwikPen U-100 Insulin] 100 unit/mL (3 mL) insulin pen 40 unit subcut BID Qty: 15 0RF Discharge Orders: Discharge Order (Routine); Ordered 01/22/23 Ordered By: Suhas Hayward Diet: Advance to usual diet Activity on Discharge: As tolerated Stand Alone Forms: Patient Portal Discharge page Care Plan Goals: avoid low sugar, work up signs of liver issues Health Concerns: low sugars, liver issues Plan of Treatment: for now decrease long acting insulin and monitor, follow up with gastroenterology Assessment: see above
[2023-01-22 08:50] LABS: HBc Num1 0.12 S/CO (0.00-0.79); HBsAGNum1 0.28 S/CO (0.00-0.99); Hepatitis B Core Antibody Nonreactive (Nonreactive); Hepatitis B Surface Antigen Negative (Negative); ~HepC Num1 0.13 S/CO (0.00-0.79); ~Hepatitis B Surface Antibody NONREACTIVE (Nonreactive); ~Hepatitis C Antibody Nonreactive (Nonreactive)
--- NOTE | 2023-01-22 08:53 | MHC.CM.PN ---
PT WILL DC HOME TODAY WITH ON SERVICES FAMILY TO TRANSPORT
[2023-01-22] MEDS: Atorvastatin Calcium 10 MG TABLET PO (09:25)
[2023-01-22] MEDS: Escitalopram Oxalate 20 MG TABLET PO (09:25)
[2023-01-22] MEDS: Calcium + Vitamin D 250 MG TABLET 500 MG PO (09:25)
[2023-01-22] MEDS: Losartan Potassium 50 MG TABLET 100 MG PO (09:25)
[2023-01-22] MEDS: Montelukast Sodium 10 MG TABLET PO (09:25)
[2023-01-22] MEDS: Ferrous Sulfate 324 MG TABLET.DR PO (09:25)
[2023-01-22] MEDS: Insulin Glargine,Hum.rec.anlog 100 UNIT/ML 10 ML VIAL 25 UNIT SUBCUT (09:25)
[2023-01-22] MEDS: Apixaban 5 MG TABLET PO (09:25)
[2023-01-22] MEDS: Escitalopram Oxalate 10 MG TABLET PO (09:25)
[2023-01-22] MEDS: 0.9 % Sodium Chloride Flush 3 ML SYRINGE IVFLUSH (09:26)
== END 2023-01-22 11:22 | disposition home or self-care (01) ==
LOC: HO.ED 10:17 → HO.EDOVER 11:46 → HO.IMC 15:31
PROVIDERS: Internal Medicine; Admitting Provider Physician Assistant; Emergency Provider Emergency Medicine; PCP Internal Medicine; Visit Provider Internal Medicine
DX: E11.649 Type 2 diabetes mellitus with hypoglycemia without coma (principal); K76.6 Portal hypertension; G93.41 Metabolic encephalopathy; R53.1 Weakness; Z20.822 Contact with and (suspected) exposure to COVID-19; R10.9 Unspecified abdominal pain; R14.0 Abdominal distension (gaseous); I10 Essential (primary) hypertension; E78.5 Hyperlipidemia, unspecified; E66.9 Obesity, unspecified; Z68.42 Body mass index [BMI] 45.0-49.9, adult; Z86.711 Personal history of pulmonary embolism; Z79.4 Long term (current) use of insulin; Z79.01 Long term (current) use of anticoagulants; Z79.02 Long term (current) use of antithrombotics/antiplatelets; Z79.899 Other long term (current) drug therapy
CPT/HCPCS: 36415; 51701; 70450; 71250; 72125; 74176; 80048; 80053; 81003; 82803; 82947; 83036; 83690; 83735; 84443; 84484; 85025; 85027; 86704; 86706; 86803; 87340; 87635; 93005; 94640; 96361; 96365; 96366; 96372; 99222; 99285

== ENCOUNTER 2023-02-19 15:14 | Emergency (ER) | payer MEDICARE, SELFPAY ==
--- NOTE | ~2023-02-19 | XR_ITS ---
EXAMINATION: XR CHEST CLINICAL INFORMATION: SOB COMPARISON: None available. TECHNIQUE: Frontal view of the chest was obtained. FINDINGS: No significant abnormality is noted involving the heart, lungs, mediastinum, bony thorax or soft tissues. XR/XR chest 1V IMPRESSION: Unremarkable chest examination.
--- NOTE | ~2023-02-19 | CT_ITS ---
EXAMINATION: CT ABDOMEN AND PELVIS WITHOUT CONTRAST CLINICAL INFORMATION: Ascites, question etiology COMPARISON: 01/20/2023 TECHNIQUE: Multidetector volumetric imaging was performed from the superior aspect of the liver through the pubic symphysis. Sagittal and coronal reformatted images were obtained on the technologist's workstation. This CT examination was performed using dose optimization techniques as appropriate, variously including the following: *Automated exposure control *Adjustment of mA and/or kV according to patient size (this includes techniques or standardized protocols for targeted exams where dose is matched to indication/reason for exam; i.e. extremities or head) *Use of iterative reconstruction technique DLP: 1096 mGy-cm FINDINGS: LUNG BASES: Small left pleural effusion. LIVER, GALLBLADDER, AND BILIARY TREE: Subtle nodular contour to the liver cannot be excluded. No focal hepatic lesion or biliary ductal dilatation is identified on this noncontrast exam. Gallbladder is grossly unremarkable. PANCREAS: Mildly atrophic. SPLEEN: Unremarkable. ADRENAL GLANDS: Unremarkable. KIDNEYS AND URETERS: No hydronephrosis bilaterally. Excreted contrast material is present in the pelvicalyceal systems and ureters. BLADDER: Partially distended, predominantly with excreted contrast material. GASTROINTESTINAL TRACT: No evidence of bowel obstruction. Scattered colonic diverticulosis is noted. No significant bowel wall thickening is seen, though evaluation for this is suboptimal in the setting of moderate volume ascites. Volume of ascites is similar to 01/20/2023. Appendix is suspected to be collapsed. No free air is seen. ABDOMINAL WALL: Anasarca noted. LYMPH NODES: Normal. VASCULAR: Moderately extensive vascular calcifications. PELVIC VISCERA: Patient appears to be status post hysterectomy. OSSEOUS STRUCTURES: Degenerative changes are noted in the spine. CT/CT abdomen pelvis wo IV con IMPRESSION: 1. Moderate volume ascites, similar to 01/20/2023. 2. Small left pleural effusion. 3. Anasarca. 4. Subtle nodular contour to the liver cannot be excluded.
--- NOTE | ~2023-02-19 | CT_ITS ---
EXAMINATION: CT ANGIOGRAM OF THE CHEST WITH AND WITHOUT CONTRAST (CT PULMONARY ANGIOGRAM FOR PE) CLINICAL INFORMATION: Reason for Exam sob COMPARISON: 01/20/2023 TECHNIQUE: Prior to contrast administration, noncontrast localization images were obtained. Subsequently, multidetector volumetric imaging was performed from the thoracic inlet to below the diaphragms following the administration of 90 mL Omnipaque 350 intravenous contrast. No contrast reaction reported Sagittal, coronal, and MIP oblique sagittal reformatted images were obtained on the CT workstation, uploaded to PACS, and reviewed. This CT examination was performed using dose optimization techniques as appropriate, variously including the following: *Automated exposure control *Adjustment of mA and/or kV according to patient size (this includes techniques or standardized protocols for targeted exams where dose is matched to indication/reason for exam; i.e. extremities or head) *Use of iterative reconstruction technique Total exam dose-length product 583 mGy-cm FINDINGS: QUALITY OF STUDY/CONTRAST BOLUS: Suboptimal. There is just as much contrast in the aorta as the pulmonary artery. Examination is also limited by patient body habitus creating artifact. There is certainly no central embolism present. It would be difficult to exclude a peripheral embolism here. There is no bowing of the septum. There is no reflux into the hepatic veins. Coronary calcifications are noted. Partially imaged upper abdominal structures once again demonstrates ascites mildly increasing from previous Centrally there is no bulky adenopathy. Imaging the lung martinez. Right lung; Mild dependent atelectasis. Mild pleural thickening similar to previous versus mild pleural fluid. Left lung; Mild pleural fluid similar to previous. Mild left basilar atelectasis. Review of the bone windows does not demonstrate evidence for bony lesion. CT/CT angio chest PE protocol IMPRESSION: Exam is limited as described. Certainly no central embolism is seen. A peripheral embolus would be difficult to exclude given limitations here. No significant acute infiltrate or effusion. Some pleural change is noted which was seen previously and some basilar atelectasis is noted left greater than right. Ascites mildly increasing in the upper abdomen
[2023-02-19 15:19] VITALS: BP 140/56; PULSE 97; RESP 24; TEMP 36.9; O2SAT 97; BMI 49.6
--- NOTE | 2023-02-19 15:20 | ED.GENADULT ---
HPI - General Adult General Chief complaint: Dyspnea Stated complaint: difficulty breathing/cant eat Time Seen by Provider: 02/19/23 16:36 Source: patient Mode of arrival: EMS Limitations: no limitations History of Present Illness HPI narrative: Patient morbidly obese with history of asthma/COPD overlap, type 2 diabetes, hypertension, hypothyroidism, history of PE on Eliquis comes in for increased shortness of breath for last 1 week got worse in last 4 days no chest pain or palpitation no cough no history of sleep apnea but never been tested for Related Data Home Medications Medication Instructions Recorded Confirmed albuterol sulfate 2.5 mg/3 mL 2.5 mg inhalation Q4H PRN asthma 01/20/23 02/19/23 (0.083 %) solution for nebulization albuterol sulfate 90 mcg/actuation 2 puff inhalation Q4H PRN 01/20/23 02/19/23 aerosol inhaler Shortness Of Breath Or Wheezing apixaban 5 mg tablet (Eliquis) 5 mg PO BID 01/20/23 02/19/23 calcium carbonate 600 mg-vitamin 1 tab PO DAILY 01/20/23 02/19/23 D3 5 mcg (200 unit) tablet citalopram 20 mg tablet 20 mg PO DAILY 01/20/23 02/19/23 ferrous sulfate 325 mg (65 mg 325 mg PO DAILY 01/20/23 02/19/23 iron) tablet fluticasone 500 mcg-salmeterol 50 1 ea inhalation BID 01/20/23 02/19/23 mcg/dose blistr powdr for inhalation (Advair Diskus) insulin aspart U-100 100 unit/mL 40 unit subcut TID 01/20/23 02/19/23 (3 mL) subcutaneous pen (Novolog FlexPen U-100 Insulin aspart) levothyroxine 50 mcg tablet 50 mcg PO DAILY@0600 01/20/23 02/19/23 losartan 100 mg tablet 100 mg PO DAILY 01/20/23 02/19/23 metformin 750 mg tablet,extended 750 mg PO DAILY 01/20/23 02/19/23 release 24 hr methotrexate (PF) 25 mg/0.5 mL 25 mg subcut RIOS 01/20/23 02/19/23 subcutaneous auto-injector (Rasuvo (PF)) montelukast 10 mg tablet 10 mg PO BEDTIME 01/20/23 02/19/23 simvastatin 20 mg tablet 20 mg PO BEDTIME 01/20/23 02/19/23 Previous Rx's Medication Instructions Recorded insulin glargine 100 unit/mL (3 40 unit (0.4 mL) subcut BID #15 mL 01/22/23 mL) subcutaneous pen (Basaglar KwikPen U-100 Insulin) spironolactone 50 mg tablet 50 mg PO QAM #30 tabs 02/20/23 (Aldactone) Allergies Allergy/AdvReac Type Severity Reaction Status Date / Time rosuvastatin [From CRESTOR] Allergy Unknown Unknown Verified 02/19/23 15:24 [facility] Past Medical History Medical History Asthma-COPD overlap syndrome Depression Diabetes mellitus, type 2 Hyperlipidemia Hypertension Hypothyroidism Pulmonary embolism Rheumatoid arthritis Social History Social History (Updated 01/20/23 @ 12:02 by DAVID Sierra) Household Members: Family Housing: Apartment Do you presently have visiting nurse or other home services: No Alcohol intake: never Patient Tobacco Use Status: Never used Tobacco Smoked in Last 30 Days: No Use of substances other than those prescribed or required for medical reasons: No Advance Directives: No Advance Directives Information Provided: Yes service: No Current occupational status: disabled Physical Exam ED Vital Signs: Vital Signs - 24 hr 02/19/23 15:19 02/19/23 17:17 02/19/23 19:15 Temperature 98.4 F 98.4 F Pulse Rate 97 91 88 Respiratory Rate 24 H 18 20 Blood Pressure 140/56 H 178/88 H Pulse Oximetry 97 94 Oxygen Delivery Method Room Air Room Air 02/19/23 21:52 02/19/23 23:04 02/20/23 01:02 Temperature 98.1 F 97.8 F Pulse Rate 93 91 91 Respiratory Rate 19 18 Blood Pressure 150/67 H 142/61 H 141/54 H Pulse Oximetry 92 92 Oxygen Delivery Method Room Air Room Air BMI result Body Mass Index 49.6 Appearance: Alert. Oriented X3. No acute distress. Obese Eyes: PERRLA, No Nystagmus ENT: Pharynx normal. Oral Mucosa moist Neck: Normal inspection. Neck supple. CVS: Normal heart rate and rhythm. Pulses normal. Respiratory: No respiratory distress. Equal air entry bilateral, decreased air entry bilateral Abdomen: Soft and nontender. Bowel sounds are present, no mass palpable, no CVA tenderness Skin: Skin warm and dry. Normal skin color. Normal skin turgor. Extremities: No lower extremity edema. No calf tenderness Neuro: Oriented X 3. No motor deficit. No sensory deficit.No cerebellar signs , cranial nerves II-XII intact Course Course Course Narrative: RME: 72-year-old female with a past medical history of asthma/COPD, depression, diabetes, HTN, HLD, hypothyroid, PE on Eliquis, RA, presenting to the ED c/o worsening SOB x few days w/L chest discomfort. +mild cough. Admits she has been unable to eat secondary to shortness of breath. denies worsening LE edema, fever/chills Tachypneic, mild respiratory distress, diminished lung sounds throughout EKG, labs, lactic/blood cultures, CXR, COVID/flu, albuterol inhaler ordered Full HPI, ROS and PE to be performed by primary ED provider. Medications Administered Discontinued Medications Generic Name Dose Route Start Last Admin Trade Name Arsenioq PRN Reason Stop Dose Admin Albuterol Sulfate 2.5 mg/ 0 mg 02/19/23 16:55 02/19/23 17:16 Albuterol/Ipratropium 3 ml INHALE 02/19/23 16:56 2.5 each ONCE ONE Administration Dexamethasone Sodium Phosphate 10 mg 02/19/23 16:55 02/19/23 17:07 Dexamethasone Sod Phosphate 10 Mg/Ml Vial IVPUSH 02/19/23 16:56 10 mg ONCE ONE Administration Iohexol 100 ml 02/19/23 19:58 02/19/23 19:59 Iohexol 350 Mg/Ml 100 Ml Infus..Btl IV 02/19/23 19:59 80 ml ONCE ONE Administration Medical Decision Making Medical Decision Making [facility] Narrative: Patient's COPD with ascites likely the cause for increased shortness of breath CTA chest was done which was negative for PE repeat CT abdomen was done which showed moderate amount of ascites. Will discharge patient home on for more like tone for diuresis patient already seen clinical nurse leader Dr. Macias today and will be following up as outpatient for cirrhosis with ascites further workup at rest patient is saturating 92% at room air patient advised to sleep with head elevated Differential Diagnosis PE/CHF/ascites/Pickwickian syndrome/sleep apnea Lab Data [facility] Lab Attestation statement: I reviewed the patient's lab results. 02/19/23 16:27 02/19/23 16:27 Labs: Lab Results 02/19/23 02/19/23 02/19/23 Range/Units 16:27 16:27 16:27 WBC 6.7 (4.8-10.8) X10*3/uL RBC 3.47 L (4.20-5.50) X10*6/uL Hgb 10.5 L (12.0-16.0) g/dl Hct 33.3 L (37.0-47.0) % MCV 96.0 (80.0-98.0) fL MCH 30.3 (27.0-33.0) pg MCHC 31.5 (31.0-35.0) g/dl RDW 15.6 (11.0-16.0) % Plt Count 238 D (160-400) X10*3/uL MPV 10.5 (9.4-12.3) fL Immature Gran % (Auto) 0.6 H (0.0-0.4) % Neut % (Auto) 60.3 (45-73) % Lymph % (Auto) 20.2 (20-40) % [place] % (Auto) 12.9 H (2-11) % Eos % (Auto) 4.5 H (0-4) % Baso % (Auto) 1.5 (0-2) % Lymph # (Auto) 1.4 (1.2-4.9) X10*3/uL [place] # (Auto) 0.9 (0.1-1.2) X10*3/uL Eos # (Auto) 0.3 (0.0-0.4) X10*3/uL Baso # (Auto) 0.1 (0.0-0.2) X10*3/uL Abs Immat Gran (auto) 0.04 H (0.00-0.03) X10*3/uL Absolute Neuts (auto) 4.1 (2.0-8.3) x10*3/uL Absolute Nucleated RBC 0.000 (0.0-0.012) X10*3/uL Nucleated RBC % (auto) 0.0 (0.0-0.2) /100WBC PT (10.0-13.1) SEC INR (0.9-1.1) D-Dimer High Sensitivty NG/ML Sodium 140 (135-145) mmol/L Potassium 4.2 (3.3-5.1) mmol/L Chloride 108 (96-108) mmol/L Carbon Dioxide 26 (22-29) mmol/L Anion Gap 10 L (12-20) BUN 31 H (9-16) mg/dL Creatinine 0.93 (0.5-1.4) mg/dL Estim Creat Clear Calc 71.0 Estimated GFR 59 POC Glucose (60-115) mg/dL Random Glucose 101 (60-115) mg/dL Lactic Acid (0.5-2.0) mmol/L Calcium 9.5 D (8.4-10.2) mg/dL Magnesium 1.8 (1.6-2.6) mg/dL Total Bilirubin 1.3 H (0.0-1.0) mg/dL Direct Bilirubin 0.4 (0.0-0.5) mg/dL AST 78 H (5-31) U/L ALT 34 H (0-31) U/L Alkaline Phosphatase 141 H (39-117) U/L Troponin I High Sens 15.5 (<3.5-17.0) ng/L B-Natriuretic Peptide (<100) pg/mL Total Protein 7.0 (6.5-8.0) g/dL Albumin 3.1 L (3.5-5.0) g/dL COVID-19 (KATHERIN) (Negative) COVID-19 Clin Com Influenza Type A (JUNG) (Negative) Influenza Type B (JUNG) (Negative) Influenza A & B Note 02/19/23 02/19/23 02/19/23 Range/Units 16:27 16:27 16:27 WBC (4.8-10.8) X10*3/uL RBC (4.20-5.50) X10*6/uL Hgb (12.0-16.0) g/dl Hct (37.0-47.0) % MCV (80.0-98.0) fL MCH (27.0-33.0) pg MCHC (31.0-35.0) g/dl RDW (11.0-16.0) % Plt Count (160-400) X10*3/uL MPV (9.4-12.3) fL Immature Gran % (Auto) (0.0-0.4) % Neut % (Auto) (45-73) % Lymph % (Auto) (20-40) % [place] % (Auto) (2-11) % Eos % (Auto) (0-4) % Baso % (Auto) (0-2) % Lymph # (Auto) (1.2-4.9) X10*3/uL [place] # (Auto) (0.1-1.2) X10*3/uL Eos # (Auto) (0.0-0.4) X10*3/uL Baso # (Auto) (0.0-0.2) X10*3/uL Abs Immat Gran (auto) (0.00-0.03) X10*3/uL Absolute Neuts (auto) (2.0-8.3) x10*3/uL Absolute Nucleated RBC (0.0-0.012) X10*3/uL Nucleated RBC % (auto) (0.0-0.2) /100WBC PT 13.5 H (10.0-13.1) SEC INR 1.2 H (0.9-1.1) D-Dimer High Sensitivty 3049 NG/ML Sodium (135-145) mmol/L Potassium (3.3-5.1) mmol/L Chloride (96-108) mmol/L Carbon Dioxide (22-29) mmol/L Anion Gap (12-20) BUN (9-16) mg/dL Creatinine (0.5-1.4) mg/dL Estim Creat Clear Calc Estimated GFR POC Glucose (60-115) mg/dL Random Glucose (60-115) mg/dL Lactic Acid 1.5 (0.5-2.0) mmol/L Calcium (8.4-10.2) mg/dL Magnesium (1.6-2.6) mg/dL Total Bilirubin (0.0-1.0) mg/dL Direct Bilirubin (0.0-0.5) mg/dL AST (5-31) U/L ALT (0-31) U/L Alkaline Phosphatase (39-117) U/L Troponin I High Sens (<3.5-17.0) ng/L B-Natriuretic Peptide 78 (<100) pg/mL Total Protein (6.5-8.0) g/dL Albumin (3.5-5.0) g/dL COVID-19 (KATHERIN) (Negative) COVID-19 Clin Com Influenza Type A (JUNG) (Negative) Influenza Type B (JUNG) (Negative) Influenza A & B Note 02/19/23 02/19/23 02/19/23 Range/Units 16:52 16:52 19:21 WBC (4.8-10.8) X10*3/uL RBC (4.20-5.50) X10*6/uL Hgb (12.0-16.0) g/dl Hct (37.0-47.0) % MCV (80.0-98.0) fL MCH (27.0-33.0) pg MCHC (31.0-35.0) g/dl RDW (11.0-16.0) % Plt Count (160-400) X10*3/uL MPV (9.4-12.3) fL Immature Gran % (Auto) (0.0-0.4) % Neut % (Auto) (45-73) % Lymph % (Auto) (20-40) % [place] % (Auto) (2-11) % Eos % (Auto) (0-4) % Baso % (Auto) (0-2) % Lymph # (Auto) (1.2-4.9) X10*3/uL [place] # (Auto) (0.1-1.2) X10*3/uL Eos # (Auto) (0.0-0.4) X10*3/uL Baso # (Auto) (0.0-0.2) X10*3/uL Abs Immat Gran (auto) (0.00-0.03) X10*3/uL Absolute Neuts (auto) (2.0-8.3) x10*3/uL Absolute Nucleated RBC (0.0-0.012) X10*3/uL Nucleated RBC % (auto) (0.0-0.2) /100WBC PT (10.0-13.1) SEC INR (0.9-1.1) D-Dimer High Sensitivty NG/ML Sodium (135-145) mmol/L Potassium (3.3-5.1) mmol/L Chloride (96-108) mmol/L Carbon Dioxide (22-29) mmol/L Anion Gap (12-20) BUN (9-16) mg/dL Creatinine (0.5-1.4) mg/dL Estim Creat Clear Calc Estimated GFR POC Glucose 95 (60-115) mg/dL Random Glucose (60-115) mg/dL Lactic Acid (0.5-2.0) mmol/L Calcium (8.4-10.2) mg/dL Magnesium (1.6-2.6) mg/dL Total Bilirubin (0.0-1.0) mg/dL Direct Bilirubin (0.0-0.5) mg/dL AST (5-31) U/L ALT (0-31) U/L Alkaline Phosphatase (39-117) U/L Troponin I High Sens (<3.5-17.0) ng/L B-Natriuretic Peptide (<100) pg/mL Total Protein (6.5-8.0) g/dL Albumin (3.5-5.0) g/dL COVID-19 (KATHERIN) Negative (Negative) COVID-19 Clin Com See Note Influenza Type A (JUNG) Negative (Negative) Influenza Type B (JUNG) Negative (Negative) Influenza A & B Note See Note Independent Interpretation I performed an independent interpretation of an: EKG Interpretation: Normal sinus rhythm heart rate 90 beats per minute normal interval normal axis no acute ST changes no acute ischemia Discharge Plan Discharge Clinical Impression: Dyspnea, Abdominal ascites Patient Disposition: Home, Self-Care Instructions: Ascites (ED), Dyspnea (ED) Additional Instructions: Continue medications including inhaler you have shortness of breath secondary to fluid in the abdomen and COPD Start taking water pill as prescribed Follow-up with clinical nurse leader for further management Prescriptions: New spironolactone [Aldactone] 50 mg tablet 50 mg PO QAM Qty: 30 0RF No Action levothyroxine 50 mcg tablet 50 mcg PO DAILY@0600 simvastatin 20 mg tablet 20 mg PO BEDTIME montelukast 10 mg tablet 10 mg PO BEDTIME losartan 100 mg tablet 100 mg PO DAILY insulin aspart U-100 [Novolog FlexPen U-100 Insulin] 100 unit/mL (3 mL) insulin pen 40 unit subcut TID metformin 750 mg tablet extended release 24 hr 750 mg PO DAILY Eliquis 5 mg tablet 5 mg PO BID albuterol sulfate 90 mcg/actuation HFA aerosol inhaler 2 puff INHALATION Q4H PRN (Reason: Shortness Of Breath Or Wheezing) Rasuvo (PF) 25 mg/0.5 mL auto-injector 25 mg subcut RIOS citalopram 20 mg tablet 20 mg PO DAILY albuterol sulfate 2.5 mg /3 mL (0.083 %) solution for nebulization 2.5 mg inhalation Q4H PRN (Reason: asthma) fluticasone propion-salmeterol [Advair Diskus] 500-50 mcg/dose blister with device 1 ea inhalation BID calcium carbonate-vitamin D3 600 mg-5 mcg (200 unit) Tablet 1 tab PO DAILY ferrous sulfate 325 mg (65 mg iron) Tablet 325 mg PO DAILY insulin glargine [Basaglar KwikPen U-100 Insulin] 100 unit/mL (3 mL) insulin pen 40 unit subcut BID Qty: 15 0RF
--- NOTE | 2023-02-19 15:23 | ECG_ITS ---
Test Reason : SOB/CP Blood Pressure : / mmHG Vent. Rate : 090 BPM Atrial Rate : 090 BPM P-R Int : 198 ms QRS Dur : 074 ms QT Int : 362 ms P-R-T Axes : 055 -10 056 degrees QTc Int : 442 ms Normal sinus rhythm Low voltage QRS Septal infarct (cited on or before 20-JAN-2023) Abnormal ECG When compared with ECG of 20-JAN-2023 06:10, Premature ventricular complexes are no longer Present Referred By: Candice Simms Electronically Signed By:BYRON FARR
[2023-02-19 16:34] LABS: MANUAL DIFF FLAG NO
[2023-02-19 16:40] LABS: Basophils Absolute Auto 0.1 X10*3/uL (0.0-0.2); Basophils Percent Auto 1.5 % (0-2); Eosinophils Absolute Auto 0.3 X10*3/uL (0.0-0.4); Eosinophils Percent Auto 4.5 % (0-4); Hematocrit 33.3 % (37.0-47.0); Hemoglobin 10.5 g/dl (12.0-16.0); Imm Gran Abs Auto 0.04 X10*3/uL (0.00-0.03); Imm Gran Pct Auto 0.6 % (0.0-0.4); Lymphocytes Absolute Auto 1.4 X10*3/uL (1.2-4.9); Lymphocytes Percent Auto 20.2 % (20-40); Mean Corpuscular HGB Conc 31.5 g/dl (31.0-35.0); Mean Corpuscular Hemoglobin 30.3 pg (27.0-33.0); Mean Platelet Volume 10.5 fL (9.4-12.3); Monocytes Absolute Auto 0.9 X10*3/uL (0.1-1.2); Monocytes Percent Auto 12.9 % (2-11); Neutrophils Absolute Auto 4.1 x10*3/uL (2.0-8.3); Neutrophils Percent Auto 60.3 % (45-73); Platelet Count 238 X10*3/uL (160-400); Red Blood Count 3.47 X10*6/uL (4.20-5.50); Red Cell Distribution Width 15.6 % (11.0-16.0); White Blood Count 6.7 X10*3/uL (4.8-10.8)
[2023-02-19 16:44] LABS: INTERNATIONAL NORM RATIO 1.2 (0.9-1.1); Prothrombin Time 13.5 SEC (10.0-13.1)
[2023-02-19 16:56] LABS: Lactic Acid 1.5 mmol/L (0.5-2.0)
--- NOTE | 2023-02-19 17:00 | PHA.MEDREC ---
Pharmacy Consult ? Medication Reconciliation Patient confirm medications. No changes since last time patient was in house. Pharmacy has completed the medication reconciliation.
[2023-02-19 17:01] LABS: Alanine Aminotransferase 34 U/L (0-31); Albumin Level 3.1 g/dL (3.5-5.0); Alkaline Phosphatase 141 U/L (39-117); Anion Gap 10 (12-20); Aspartate Amino Transferase 78 U/L (5-31); Bilirubin Direct 0.4 mg/dL (0.0-0.5); Bilirubin Total 1.3 mg/dL (0.0-1.0); Blood Urea Nitrogen 31 mg/dL (9-16); Calcium 9.5 mg/dL (8.4-10.2); Carbon Dioxide 26 mmol/L (22-29); Chloride 108 mmol/L (96-108); Estimated Glomerular Filt Rate 59; Glucose Random 101 mg/dL (60-115); Magnesium 1.8 mg/dL (1.6-2.6); Potassium 4.2 mmol/L (3.3-5.1); Sodium 140 mmol/L (135-145)
[2023-02-19 17:02] LABS: Troponin-I High Sensitivity 15.5 ng/L (<3.5-17.0)
[2023-02-19 17:03] LABS: B Type Natriuretic Peptide 78 pg/mL (<100)
[2023-02-19] MEDS: dexAMETHasone sod phosphate 10 MG/ML VIAL IVPUSH (17:07)
[2023-02-19 17:17] VITALS: PULSE 91; RESP 18; O2SAT 96
[2023-02-19 17:27] LABS: COVID-19 Test Negative (Negative); IDNOW Serial# 08D9AD1C; IDNOW Serial# BCCEAD1C; Influenza A Negative (Negative); Influenza B2 Negative (Negative)
[2023-02-19 19:03] LABS: D Dimer High Sensitivity 3049 NG/ML
[2023-02-19 19:15] VITALS: BP 178/88; PULSE 88; RESP 20; TEMP 36.9; O2SAT 94
[2023-02-19 19:25] LABS: Glucose, Whole Blood 95 mg/dL (60-115)
--- NOTE | 2023-02-19 19:38 | MHC.EDTECH ---
VSS BS 95 . Pt asked for sandwich, sandwich and diet gingerale given
[2023-02-19] MEDS: iohexoL 350 MG/ML 100 ML INFUS..BTL IV (19:59)
--- NOTE | 2023-02-19 20:01 | PC.NURSE ---
pt assessed, reported increased sob with excertion
--- NOTE | 2023-02-19 21:11 | PC.NURSE ---
pt assessed, oob with 1 assit to the bathroom , sob with excretion
[2023-02-19 21:52] VITALS: BP 150/67; PULSE 93; RESP 19; TEMP 36.7; O2SAT 92
[2023-02-19 23:04] VITALS: BP 142/61; PULSE 91
[2023-02-20 01:02] VITALS: BP 141/54; PULSE 91; RESP 18; TEMP 36.6; O2SAT 92
== END 2023-02-20 02:17 | disposition home or self-care (01) ==
PROVIDERS: Physician Assistant; Emergency Provider Internal Medicine; PCP Internal Medicine
DX: R06.00 Dyspnea, unspecified (principal); R18.8 Other ascites; Z20.822 Contact with and (suspected) exposure to COVID-19; R06.02 Shortness of breath; E11.9 Type 2 diabetes mellitus without complications; I10 Essential (primary) hypertension; E78.5 Hyperlipidemia, unspecified; Z86.711 Personal history of pulmonary embolism; Z79.01 Long term (current) use of anticoagulants; Z79.899 Other long term (current) drug therapy; Z79.4 Long term (current) use of insulin; Z79.02 Long term (current) use of antithrombotics/antiplatelets
CPT/HCPCS: 71045; 71275; 74176; 80048; 80076; 82947; 83605; 83735; 83880; 84484; 85025; 85379; 85610; 87040; 87147; 87205; 87502; 87635; 93005; 94640; 96374; 99285; J1100; Q9967

== ENCOUNTER 2023-02-22 10:59 | Emergency (ER) | payer MEDICARE, SELFPAY ==
--- NOTE | ~2023-02-22 | US_ITS ---
EXAMINATION: US ABDOMEN LIMITED CLINICAL INFORMATION: Right upper quadrant pain. COMPARISON: None available. TECHNIQUE: Real-time imaging of the right upper quadrant abdominal viscera. FINDINGS: PANCREAS: Most of the pancreas is obscured by overlying gas.. LIVER: The liver is normal in size. The liver contour is normal. Parenchymal echogenicity is coarse.. No focal hepatic lesion. There is no intrahepatic biliary duct dilatation seen. GALLBLADDER: Gallbladder wall thickness is 0.3 cm.. The gallbladder is physiologically distended without evidence of stones, sludge, polyps, wall thickening or pericholecystic fluid. COMMON BILE DUCT: Common bile duct is not visualized.. RIGHT KIDNEY: Normal. No hydronephrosis. No renal calculi or focal parenchymal lesions. The kidney measures 11.0 cm in maximum dimension. FREE FLUID: None. US/US abdomen limited IMPRESSION: 1. Coarse echogenic liver without focal lesion. 2. Visualized gallbladder, CBD, right kidney and pancreas is unremarkable.
--- NOTE | 2023-02-22 11:03 | ECG_ITS ---
Test Reason : Abd Pain Blood Pressure : / mmHG Vent. Rate : 083 BPM Atrial Rate : 083 BPM P-R Int : 216 ms QRS Dur : 078 ms QT Int : 368 ms P-R-T Axes : 049 -04 059 degrees QTc Int : 432 ms Sinus rhythm with sinus arrhythmia with 1st degree A-V block Low voltage QRS Cannot rule out Anteroseptal infarct (cited on or before 20-JAN-2023) Abnormal ECG When compared with ECG of 19-FEB-2023 16:39, No significant change was found Referred By: Evangelina Patton Electronically Signed By:Gopi Rodriguez
[2023-02-22 11:12] VITALS: BP 149/87; BP 160/69; PULSE 85; RESP 22; TEMP 36.6; O2SAT 96; O2SAT 99; BMI 51.7
--- NOTE | 2023-02-22 11:24 | PC.NURSE ---
pt alert, otientedx4. reporting increased SOB and weight gain over the past week. Lung sounds clear Home weight 02/16 280 lb Bedscale weight today 290l Vitals stable. IV inserted by EMS. awaiting EKG, labs, urine. non-pitting edema in lower extrems, pedal pulses palpable +1 bilat.
[2023-02-22 11:54] LABS: MANUAL DIFF FLAG NO
[2023-02-22 11:58] LABS: Basophils Absolute Auto 0.1 X10*3/uL (0.0-0.2); Basophils Percent Auto 1.3 % (0-2); Eosinophils Absolute Auto 0.3 X10*3/uL (0.0-0.4); Eosinophils Percent Auto 4.8 % (0-4); Hematocrit 31.5 % (37.0-47.0); Hemoglobin 10.2 g/dl (12.0-16.0); Imm Gran Abs Auto 0.04 X10*3/uL (0.00-0.03); Imm Gran Pct Auto 0.6 % (0.0-0.4); Lymphocytes Absolute Auto 1.5 X10*3/uL (1.2-4.9); Lymphocytes Percent Auto 23.5 % (20-40); Mean Corpuscular HGB Conc 32.4 g/dl (31.0-35.0); Mean Corpuscular Hemoglobin 30.3 pg (27.0-33.0); Mean Corpuscular Volume 93.5 fL (80.0-98.0); Mean Platelet Volume 10.2 fL (9.4-12.3); Monocytes Percent Auto 16.2 % (2-11); Neutrophils Absolute Auto 3.4 x10*3/uL (2.0-8.3); Neutrophils Percent Auto 53.6 % (45-73); Platelet Count 201 X10*3/uL (160-400); Red Blood Count 3.37 X10*6/uL (4.20-5.50); Red Cell Distribution Width 15.7 % (11.0-16.0); White Blood Count 6.3 X10*3/uL (4.8-10.8)
[2023-02-22 12:08] LABS: Ammonia 24 umol/L (13-55)
[2023-02-22 12:13] LABS: Alanine Aminotransferase 50 U/L (0-31); Albumin Level 2.9 g/dL (3.5-5.0); Alkaline Phosphatase 127 U/L (39-117); Anion Gap 8 (12-20); Aspartate Amino Transferase 107 U/L (5-31); Blood Urea Nitrogen 28 mg/dL (9-16); Calcium 8.8 mg/dL (8.4-10.2); Carbon Dioxide 26 mmol/L (22-29); Chloride 108 mmol/L (96-108); Creatinine Clr Calc Pharmacy 65.1; Estimated Glomerular Filt Rate 52; Glucose Random 273 mg/dL (60-115); Potassium 4.4 mmol/L (3.3-5.1); Sodium 138 mmol/L (135-145); Total Protein 6.2 g/dL (6.5-8.0)
--- NOTE | 2023-02-22 12:21 | ED_ITS ---
HPI - General Adult General Chief complaint: General Medical Stated complaint: INCR ABD PAIN,ABN LABS,SEEN RECENTLY PER EMS Time Seen by Provider: 02/22/23 11:01 Source: patient Mode of arrival: EMS History of Present Illness HPI narrative: 72-year-old female is brought in by EMS for complaints of increased swelling in her bilateral feet despite being in a recliner. She denies any associated fever or chills and states that she has been having ongoing shortness of breath as well as fluid in the abdomen. Patient states that she was seen here 02/19/23. Patient does report abdominal discomfort. Related Data Home Medications Medication Instructions Recorded Confirmed albuterol sulfate 2.5 mg/3 mL 2.5 mg inhalation Q4H PRN asthma 01/20/23 02/19/23 (0.083 %) solution for nebulization albuterol sulfate 90 mcg/actuation 2 puff inhalation Q4H PRN 01/20/23 02/19/23 aerosol inhaler Shortness Of Breath Or Wheezing apixaban 5 mg tablet (Eliquis) 5 mg PO BID 01/20/23 02/19/23 calcium carbonate 600 mg-vitamin 1 tab PO DAILY 01/20/23 02/19/23 D3 5 mcg (200 unit) tablet citalopram 20 mg tablet 20 mg PO DAILY 01/20/23 02/19/23 ferrous sulfate 325 mg (65 mg 325 mg PO DAILY 01/20/23 02/19/23 iron) tablet fluticasone 500 mcg-salmeterol 50 1 ea inhalation BID 01/20/23 02/19/23 mcg/dose blistr powdr for inhalation (Advair Diskus) insulin aspart U-100 100 unit/mL 40 unit subcut TID 01/20/23 02/19/23 (3 mL) subcutaneous pen (Novolog FlexPen U-100 Insulin aspart) levothyroxine 50 mcg tablet 50 mcg PO DAILY@0600 01/20/23 02/19/23 losartan 100 mg tablet 100 mg PO DAILY 01/20/23 02/19/23 metformin 750 mg tablet,extended 750 mg PO DAILY 01/20/23 02/19/23 release 24 hr methotrexate (PF) 25 mg/0.5 mL 25 mg subcut RIOS 01/20/23 02/19/23 subcutaneous auto-injector (Rasuvo (PF)) montelukast 10 mg tablet 10 mg PO BEDTIME 01/20/23 02/19/23 simvastatin 20 mg tablet 20 mg PO BEDTIME 01/20/23 02/19/23 Previous Rx's Medication Instructions Recorded insulin glargine 100 unit/mL (3 40 unit (0.4 mL) subcut BID #15 mL 01/22/23 mL) subcutaneous pen (Basaglar KwikPen U-100 Insulin) spironolactone 50 mg tablet 50 mg PO QAM #30 tabs 02/20/23 (Aldactone) Allergies Allergy/AdvReac Type Severity Reaction Status Date / Time rosuvastatin [From [facility]] Allergy Unknown Unknown Verified 02/19/23 15:24 Review of Systems Review of Systems: Pertinent positives and negatives as stated in [facility] Past Medical History Source: nursing notes reviewed Medical History Asthma-COPD overlap syndrome Depression Diabetes mellitus, type 2 Hyperlipidemia Hypertension Hypothyroidism Pulmonary embolism Rheumatoid arthritis Social History Social History Household Members: Family Housing: Apartment Do you presently have visiting nurse or other home services: No Alcohol intake: never Patient Tobacco Use Status: Never used Tobacco Smoked in Last 30 Days: No Use of substances other than those prescribed or required for medical reasons: No Advance Directives: No Advance Directives Information Provided: Yes service: No Current occupational status: disabled Physical Exam ED Vital Signs: Vital Signs - 24 hr 02/22/23 11:12 02/22/23 12:53 02/22/23 13:30 Temperature 97.9 F Pulse Rate 85 92 79 Respiratory Rate 22 H 22 H 20 Blood Pressure 160/69 H 160/74 H 162/76 H Pulse Oximetry 96 96 95 Oxygen Delivery Method Room Air Room Air Room Air BMI result Body Mass Index 51.7 VITAL SIGNS: Reviewed. GENERAL: Elevated BMI, chronically ill, Well developed, well nourished, in no acute distress. HEAD: Normocephalic/atraumatic EYES: PERRLA, EOMI EARS: Ext canals without abnormality NOSE: Nares patent bilateral OROPHARYNX: no oral lesions noted, posterior pharynx clear NECK: Supple, no adenopathy LUNGS: Normal breath sounds. No adventitious sounds or accessory muscle use. SpO2<99> room air CARDIOVASCULAR: Regular rate and rhythm without noted murmurs, no JVD mild bilateral 1+ pitting edema ABDOMEN: Soft, non-tender, non-distended with bowel sounds. MUSCULOSKELETAL: No tenderness, deformities, or effusions noted on gross inspection. EXTREMITIES: No cyanosis, clubbing or edema. SKIN: Inspection of the skin reveals no rashes NEUROLOGIC: Alert and oriented x 3. Strength and sensation to light touch were grossly intact x 4. Medications Administered Discontinued Medications Generic Name Dose Route Start Last Admin Trade Name Freq PRN Reason Stop Dose Admin Furosemide 60 mg 02/22/23 13:34 02/22/23 13:50 Furosemide 100 Mg/10 Ml Vial IVPUSH 02/22/23 13:35 60 mg ONCE ONE Administration Protocol Medical Decision Making Medical Decision Making [facility] Narrative: This is a 72-year-old female with history and clinical presentation most consistent with exact concerns and complaints as on 02/19, however noted increase in LFTs will obtain corresponding lipase as well as abdominal ultrasound. I do not find any previous records from Dr. Macias in patient has no prior history of alcohol use, this could be progressive complications of GRIMES. I reviewed all investigations and my interpretation is that patient experienced some mild increase in CHF for which she received 60 mg of Lasix but remains otherwise hemodynamically stable without tachypnea or hypoxia. Evaluation of the bladder scan negative for suggestion of gallbladder disease. Patient is hemodynamically stable and otherwise has chronically stable lab work and is stable for discharge to home with instructions to follow-up with her primary care provider as well as Gastroenterology. I reviewed all labs with the patient. Differential Diagnosis Please see the discussion above Lab Data Please see the discussion above 02/22/23 11:47 02/22/23 11:47 Labs: Lab Results 02/22/23 02/22/23 02/22/23 Range/Units 11:47 11:47 11:47 WBC 6.3 (4.8-10.8) X10*3/uL RBC 3.37 L (4.20-5.50) X10*6/uL Hgb 10.2 L (12.0-16.0) g/dl Hct 31.5 L (37.0-47.0) % MCV 93.5 (80.0-98.0) fL MCH 30.3 (27.0-33.0) pg MCHC 32.4 (31.0-35.0) g/dl RDW 15.7 (11.0-16.0) % Plt Count 201 (160-400) X10*3/uL MPV 10.2 (9.4-12.3) fL Immature Gran % (Auto) 0.6 H (0.0-0.4) % Neut % (Auto) 53.6 (45-73) % Lymph % (Auto) 23.5 (20-40) % Villalba % (Auto) 16.2 H (2-11) % Eos % (Auto) 4.8 H (0-4) % Baso % (Auto) 1.3 (0-2) % Lymph # (Auto) 1.5 (1.2-4.9) X10*3/uL Vill[place]ba # (Auto) 1.0 (0.1-1.2) X10*3/uL Eos # (Auto) 0.3 (0.0-0.4) X10*3/uL Baso # (Auto) 0.1 (0.0-0.2) X10*3/uL Abs Immat Gran (auto) 0.04 H (0.00-0.03) X10*3/uL Absolute Neuts (auto) 3.4 (2.0-8.3) x10*3/uL Absolute Nucleated RBC 0.000 (0.0-0.012) X10*3/uL Nucleated RBC % (auto) 0.0 (0.0-0.2) /100WBC Sodium 138 (135-145) mmol/L Potassium 4.4 (3.3-5.1) mmol/L Chloride 108 (96-108) mmol/L Carbon Dioxide 26 (22-29) mmol/L Anion Gap 8 L (12-20) BUN 28 H (9-16) mg/dL Creatinine 1.04 (0.5-1.4) mg/dL Estim Creat Clear Calc 65.1 Estimated GFR 52 POC Glucose (60-115) mg/dL Random Glucose 273 H (60-115) mg/dL Calcium 8.8 D (8.4-10.2) mg/dL Total Bilirubin 1.0 (0.0-1.0) mg/dL AST 107 H (5-31) U/L ALT 50 H (0-31) U/L Alkaline Phosphatase 127 H (39-117) U/L Ammonia 24 (13-55) umol/L B-Natriuretic Peptide (<100) pg/mL Total Protein 6.2 L (6.5-8.0) g/dL Albumin 2.9 L (3.5-5.0) g/dL Lipase 28 (8-78) U/L Urine Color Urine Appearance Urine pH (5.0-9.0) Ur Specific [place] (1.005-1.025) Urine Protein (Neg-Trace) mg/dL Urine Glucose (UA) (Negative) mg/dL Urine Ketones (Negative) mg/dL Urine Blood (Negative) Urine Nitrite (Negative) Ur Leukocyte Esterase (Negative) 02/22/23 02/22/23 02/22/23 Range/Units 11:47 12:51 13:33 WBC (4.8-10.8) X10*3/uL RBC (4.20-5.50) X10*6/uL Hgb (12.0-16.0) g/dl Hct (37.0-47.0) % MCV (80.0-98.0) fL MCH (27.0-33.0) pg MCHC (31.0-35.0) g/dl RDW (11.0-16.0) % Plt Count (160-400) X10*3/uL MPV (9.4-12.3) fL Immature Gran % (Auto) (0.0-0.4) % Neut % (Auto) (45-73) % Lymph % (Auto) (20-40) % Villalba % (Auto) (2-11) % Eos % (Auto) (0-4) % Baso % (Auto) (0-2) % Lymph # (Auto) (1.2-4.9) X10*3/uL [place] # (Auto) (0.1-1.2) X10*3/uL Eos # (Auto) (0.0-0.4) X10*3/uL Baso # (Auto) (0.0-0.2) X10*3/uL Abs Immat Gran (auto) (0.00-0.03) X10*3/uL Absolute Neuts (auto) (2.0-8.3) x10*3/uL Absolute Nucleated RBC (0.0-0.012) X10*3/uL Nucleated RBC % (auto) (0.0-0.2) /100WBC Sodium (135-145) mmol/L Potassium (3.3-5.1) mmol/L Chloride (96-108) mmol/L Carbon Dioxide (22-29) mmol/L Anion Gap (12-20) BUN (9-16) mg/dL Creatinine (0.5-1.4) mg/dL Estim Creat Clear Calc Estimated GFR POC Glucose 233 H (60-115) mg/dL Random Glucose (60-115) mg/dL Calcium (8.4-10.2) mg/dL Total Bilirubin (0.0-1.0) mg/dL AST (5-31) U/L ALT (0-31) U/L Alkaline Phosphatase (39-117) U/L Ammonia (13-55) umol/L B-Natriuretic Peptide 119 H (<100) pg/mL Total Protein (6.5-8.0) g/dL Albumin (3.5-5.0) g/dL Lipase (8-78) U/L Urine Color Yellow Urine Appearance Clear Urine pH 6.0 (5.0-9.0) Ur Specific [place] 1.015 (1.005-1.025) Urine Protein Negative (Neg-Trace) mg/dL Urine Glucose (UA) 500 H (Negative) mg/dL Urine Ketones Negative (Negative) mg/dL Urine Blood Negative (Negative) Urine Nitrite Negative (Negative) Ur Leukocyte Esterase Negative (Negative) Independent Interpretation I performed an independent interpretation of an: EKG Interpretation: Sinus rhythm with first-degree AV block (borderline at baseline), HR-83, no STEMI, RI-216, QRS/QTC is within normal limits Radiology Impression Radiologist Impression: My interpretation is in agreement with radiology's impression. External Record Review External record reviewed: Outpatient record and Prior outpatient labs Chronic Conditions Patient?s care impacted by: Diabetes and Hypertension Discharge Plan Discharge Clinical Impression: CHF (congestive heart failure), Abdominal discomfort Patient Disposition: Home, Self-Care Instructions: Heart Failure (ED), Abdominal Pain (ED) Additional Instructions: 1. Resume all home medications as prescribed. 2. Who will need to continue to take the water pill and follow-up with your continuous towel roller and/or your primary care provider. 3. You will need to reach out to Gastroenterology, you mentioned Dr. Macias and you will need to have a follow-up appointment with him regarding your concerns about your liver. Return to the ER for any worsening symptoms. Prescriptions: No Action levothyroxine 50 mcg tablet 50 mcg PO DAILY@0600 simvastatin 20 mg tablet 20 mg PO BEDTIME montelukast 10 mg tablet 10 mg PO BEDTIME losartan 100 mg tablet 100 mg PO DAILY insulin aspart U-100 [Novolog FlexPen U-100 Insulin] 100 unit/mL (3 mL) insulin pen 40 unit subcut TID metformin 750 mg tablet extended release 24 hr 750 mg PO DAILY Eliquis 5 mg tablet 5 mg PO BID albuterol sulfate 90 mcg/actuation HFA aerosol inhaler 2 puff INHALATION Q4H PRN (Reason: Shortness Of Breath Or Wheezing) Rasuvo (PF) 25 mg/0.5 mL auto-injector 25 mg subcut RIOS citalopram 20 mg tablet 20 mg PO DAILY albuterol sulfate 2.5 mg /3 mL (0.083 %) solution for nebulization 2.5 mg inhalation Q4H PRN (Reason: asthma) fluticasone propion-salmeterol [Advair Diskus] 500-50 mcg/dose blister with device 1 ea inhalation BID calcium carbonate-vitamin D3 600 mg-5 mcg (200 unit) Tablet 1 tab PO DAILY ferrous sulfate 325 mg (65 mg iron) Tablet 325 mg PO DAILY insulin glargine [Basaglar KwikPen U-100 Insulin] 100 unit/mL (3 mL) insulin pen 40 unit subcut BID Qty: 15 0RF spironolactone [Aldactone] 50 mg tablet 50 mg PO QAM Qty: 30 0RF
[2023-02-22 12:39] LABS: Lipase 28 U/L (8-78)
[2023-02-22 12:52] LABS: B Type Natriuretic Peptide 119 pg/mL (<100)
[2023-02-22 12:53] VITALS: BP 160/74; PULSE 92; RESP 22; O2SAT 96
[2023-02-22 12:59] LABS: Glucose, Whole Blood 233 mg/dL (60-115)
[2023-02-22 13:30] VITALS: BP 162/76; PULSE 79; RESP 20; O2SAT 95
[2023-02-22 13:47] LABS: Appearance Urine Clear; Color Urine Yellow; Glucose Urine UA 500 mg/dL (Negative); Leukocyte Esterase Urine Negative (Negative); Nitrite Urine Negative (Negative); Specific Gravity - Urine 1.015 (1.005-1.025); Urine Blood Negative (Negative); Urine Ketones Negative (Negative); Urine Protein Negative (Neg-Trace)
[2023-02-22] MEDS: Furosemide 100 MG/10 ML VIAL 60 MG IVPUSH (13:50)
--- NOTE | 2023-02-22 13:53 | PC.NURSE ---
pt in no distress, not reporting pain. LAsix given per Dec. pt on purewick. 100ml in canister
[2023-02-22 16:10] VITALS: BP 166/71; PULSE 92; RESP 22; TEMP 36.7; O2SAT 96
== END 2023-02-22 17:08 | disposition home or self-care (01) ==
PROVIDERS: Emergency Provider Student in an Organized Health Care Education/Training Program
DX: I50.9 Heart failure, unspecified (principal); I49.8 Other specified cardiac arrhythmias; R60.0 Localized edema; R10.13 Epigastric pain; E11.9 Type 2 diabetes mellitus without complications; Z79.899 Other long term (current) drug therapy; Z79.4 Long term (current) use of insulin
CPT/HCPCS: 36415; 76705; 80053; 81003; 82140; 82947; 83690; 83880; 85025; 93005; 96374; 99284; J1940

== ENCOUNTER 2023-03-29 09:25 | Outpatient (REF) | payer MEDICARE, SELFPAY ==
--- NOTE | ~2023-03-29 | US_ITS ---
EXAMINATION: US COMPLETE ABDOMEN WITH LIVER ELASTOGRAPHY CLINICAL INFORMATION: Elevated liver function tests. COMPARISON: None available. TECHNIQUE: Real-time imaging of the abdominal viscera. Noninvasive ultrasound liver fibrosis assessment is performed using Yanira ElastPQ point quantification shear wave elastography (2D-SWE) with a C5-2 MHz transducer. Multiple elastography samples are obtained. FINDINGS: PANCREAS: Normal. The visualized pancreatic head and body are normal in appearance. The remainder of the pancreas is obscured from visualization by the overlying bowel gas. ABDOMINAL AORTA: The visualized proximal, middle, and distal aortic segments are normal in caliber. INFERIOR VENA CAVA: Visualized portions are normal. LIVER: Normal. The liver demonstrates normal size, contour and echogenicity. No focal lesion or intrahepatic biliary duct dilatation. The right lobe measures 14.6 cm in length. The left lobe measures 13.7 cm in length. Portal flow is towards the liver (hepatopetal). Shear wave liver elastography median stiffness is 2.38 m/s (reference: normal median stiffness is 1.3 m/s or less). IQR/median stiffness to assess sampling precision is 0.16 (reference: good quality data set is IQR/median stiffness of 0.15 or less). GALLBLADDER: Normal. The gallbladder is physiologically distended without evidence of stones, sludge, polyps, wall thickening or pericholecystic fluid. COMMON BILE DUCT: Normal in caliber measuring 0.7 cm in diameter. RIGHT KIDNEY: Normal. No hydronephrosis. No renal calculi or focal parenchymal lesions. The kidney measures 8.2 cm in maximum dimension. LEFT KIDNEY: Normal. No hydronephrosis. No renal calculi or focal parenchymal lesions. The kidney measures 10.3 cm in maximum dimension. SPLEEN: Normal. The spleen measures 10.0 cm in maximum dimension. FREE FLUID: There is perihepatic ascites. A left pleural effusion is seen. US/US abdomen comp w elastography IMPRESSION: 1. There is generalized increase in hepatic echotexture, consistent with fatty infiltration or hepatocellular disease. Please correlate clinically. No focal hepatic mass or intrahepatic biliary dilatation is seen. 2. Liver elastography: Although measurements appear consistent with compensated advanced chronic liver disease, there is statistical variability of the sampling which decreases accuracy. 3. A left pleural effusion is seen, and there is perihepatic ascites. REFERENCE: Society of Radiologists in Ultrasound Liver Stiffness Thresholds (2020): LIVER STIFFNESS THRESHOLDS: *Liver Stiffness equal or less than 1.3 m/s: High probability of being normal. *Liver Stiffness less than 1.7 m/s: In the absence of other known clinical signs, rules out compensated advanced chronic liver disease. *Liver Stiffness 1.7-2.1 m/s: Suggestive of compensated advanced chronic liver disease but need further test for confirmation. *Liver Stiffness over 2.1 m/s: Rules in compensated advanced chronic liver disease. *Liver Stiffness over 2.4 m/s: Suggestive of clinically significant portal hypertension. QUALITY OF DATA SET: *IQR/Median value equal or less than 0.15 implies a quality data set. *IQR/Median value over 0.15 implies a poor quality data set. SIGNIFICANT CHANGE FROM PRIOR EXAM: Significant change if liver stiffness measurement is 10% or greater from prior exam. OTHER CONSIDERATIONS: The stage of liver fibrosis may be overestimated in the setting of acute hepatitis, liver inflammation, elevated liver function tests, hepatic vascular congestion, obstructive cholestasis, non-fasting state, and infiltrative diseases such as amyloidosis and lymphoma. In some patients with NAFLD, the liver stiffness thresholds for compensated advanced chronic liver disease may be lower. In causes other than viral hepatitis and NAFLD, liver stiffness thresholds are not well established.
[2023-03-29 09:54] LABS: MANUAL DIFF FLAG NO
[2023-03-29 10:03] LABS: Basophils Absolute Auto 0.1 X10*3/uL (0.0-0.2); Basophils Percent Auto 1.1 % (0-2); Eosinophils Absolute Auto 0.3 X10*3/uL (0.0-0.4); Eosinophils Percent Auto 4.1 % (0-4); Hematocrit 32.8 % (37.0-47.0); Hemoglobin 10.5 g/dl (12.0-16.0); Imm Gran Abs Auto 0.02 X10*3/uL (0.00-0.03); Imm Gran Pct Auto 0.3 % (0.0-0.4); Lymphocytes Absolute Auto 1.1 X10*3/uL (1.2-4.9); Lymphocytes Percent Auto 16.6 % (20-40); Mean Corpuscular Hemoglobin 30.1 pg (27.0-33.0); Mean Platelet Volume 10.3 fL (9.4-12.3); Monocytes Absolute Auto 0.6 X10*3/uL (0.1-1.2); Monocytes Percent Auto 9.1 % (2-11); Neutrophils Absolute Auto 4.4 x10*3/uL (2.0-8.3); Neutrophils Percent Auto 68.8 % (45-73); Platelet Count 222 X10*3/uL (160-400); Red Blood Count 3.49 X10*6/uL (4.20-5.50); White Blood Count 6.4 X10*3/uL (4.8-10.8)
[2023-03-29 10:06] LABS: INTERNATIONAL NORM RATIO 1.2 (0.9-1.1); Prothrombin Time 14.1 SEC (10.0-13.1)
[2023-03-29 10:52] LABS: Alanine Aminotransferase 30 U/L (0-31); Alkaline Phosphatase 128 U/L (39-117); Anion Gap 16 (12-20); Aspartate Amino Transferase 65 U/L (5-31); Bilirubin Direct 0.4 mg/dL (0.0-0.5); Bilirubin Total 1.3 mg/dL (0.0-1.0); Blood Urea Nitrogen 30 mg/dL (9-16); Carbon Dioxide 26 mmol/L (22-29); Chloride 102 mmol/L (96-108); Estimated Glomerular Filt Rate 43; Iron 44 mcg/dL (30-160); Percent Iron Saturation 14 % (15-50); Potassium 4.2 mmol/L (3.3-5.1); Sodium 140 mmol/L (135-145); Total Iron Binding Capacity 307 mcg/dL (228-428); Total Protein 7.3 g/dL (6.5-8.0); Unsaturated Iron Binding 263 ug/dL
[2023-03-29 11:06] LABS: Ferritin 60 ng/mL (10-250)
[2023-03-29 18:00] LABS: Glucose Random 215 mg/dL (60-115)
[2023-03-30 13:34] LABS: Anti Nuclear Antibody Screen NEGATIVE (NEGATIVE)
[2023-03-31 10:59] LABS: Mitochondrial Antibodies NEGATIVE (NEGATIVE)
[2023-04-02 16:08] LABS: Smooth Muscle Antibody <20 U (<20)
[2023-04-02 23:33] LABS: Alpha 1 Anti-trypsin 202 mg/dL (83-199)
[2023-04-06 16:24] LABS: FIB-ALT 27 U/L (6-29); FIB-Alpha-2-Macroglobulin 217 mg/dL (106-279); FIB-Apolipoprotein A1 107 mg/dL (101-198); FIB-GGT 86 U/L (3-65); FIB-Haptoglobin 141 mg/dL (43-212); FIB-Total Bilirubin 0.7 mg/dL (0.2-1.2); Liver Fibrosis Score 0.59; Liver Fibrosis Stage F3; Nec Inflam Act Grade A0-A1; Nec Inflam Act Score 0.18
== END 2023-03-29 09:26 | disposition home or self-care (01) ==
LOC: HO.US 09:25
PROVIDERS: PCP Internal Medicine; Visit Provider Internal Medicine
DX: R18.8 Other ascites (principal); R79.89 Other specified abnormal findings of blood chemistry
CPT/HCPCS: 36415; 76705; 76981; 80048; 80051; 80076; 81596; 82103; 82565; 82728; 83540; 84520; 85025; 85610; 86015; 86038; 86255; 86256

== ENCOUNTER 2023-04-15 13:21 | Emergency (ER) | payer MEDICARE, SELFPAY ==
[2023-04-15 14:07] VITALS: BP 128/50; PULSE 93; RESP 18; TEMP 36.5; O2SAT 95; BMI 44.6
--- NOTE | 2023-04-15 14:07 | ED.GENADULT ---
HPI - General Adult General Chief complaint: Skin/Abscess/Foreign Body Stated complaint: Open Wound l Side Abd Fold Time Seen by Provider: 04/15/23 14:36 History of Present Illness HPI narrative: patient complains of rash in small wound in belly area which has been present for over a month, was treated for week with Keflex by primary doctor with possibly some mild improvement but not resolution, denies fever chills, no significant pain, she is diabetic her fingersticks are usually under 150 No nausea no vomiting no other abdominal pain Related Data Home Medications Medication Instructions Recorded Confirmed albuterol sulfate 2.5 mg/3 mL 2.5 mg inhalation Q4H PRN asthma 01/20/23 02/19/23 (0.083 %) solution for nebulization albuterol sulfate 90 mcg/actuation 2 puff inhalation Q4H PRN 01/20/23 02/19/23 aerosol inhaler Shortness Of Breath Or Wheezing apixaban 5 mg tablet (Eliquis) 5 mg PO BID 01/20/23 02/19/23 calcium carbonate 600 mg-vitamin 1 tab PO DAILY 01/20/23 02/19/23 D3 5 mcg (200 unit) tablet citalopram 20 mg tablet 20 mg PO DAILY 01/20/23 02/19/23 ferrous sulfate 325 mg (65 mg 325 mg PO DAILY 01/20/23 02/19/23 iron) tablet fluticasone 500 mcg-salmeterol 50 1 ea inhalation BID 01/20/23 02/19/23 mcg/dose blistr powdr for inhalation (Advair Diskus) insulin aspart U-100 100 unit/mL 40 unit subcut TID 01/20/23 02/19/23 (3 mL) subcutaneous pen (Novolog FlexPen U-100 Insulin aspart) levothyroxine 50 mcg tablet 50 mcg PO DAILY@0600 01/20/23 02/19/23 losartan 100 mg tablet 100 mg PO DAILY 01/20/23 02/19/23 metformin 750 mg tablet,extended 750 mg PO DAILY 01/20/23 02/19/23 release 24 hr methotrexate (PF) 25 mg/0.5 mL 25 mg subcut RIOS 01/20/23 02/19/23 subcutaneous auto-injector (Rasuvo (PF)) montelukast 10 mg tablet 10 mg PO BEDTIME 01/20/23 02/19/23 simvastatin 20 mg tablet 20 mg PO BEDTIME 01/20/23 02/19/23 Previous Rx's Medication Instructions Recorded insulin glargine 100 unit/mL (3 40 unit (0.4 mL) subcut BID #15 mL 01/22/23 mL) subcutaneous pen (Basaglar KwikPen U-100 Insulin) spironolactone 50 mg tablet 50 mg PO QAM #30 tabs 02/20/23 (Aldactone) cephalexin 500 mg tablet 500 mg PO QID 7 days #28 tabs 04/15/23 doxycycline hyclate 100 mg capsule 100 mg PO BID 7 days #14 caps 04/15/23 Allergies Allergy/AdvReac Type Severity Reaction Status Date / Time rosuvastatin [From CRESTOR] Allergy Unknown Unknown Verified 04/15/23 14:07 [facility] Past Medical History Source: nursing notes reviewed Medical History Asthma-COPD overlap syndrome Depression Diabetes mellitus, type 2 Hyperlipidemia Hypertension Hypothyroidism Pulmonary embolism Rheumatoid arthritis Social History Social History Household Members: Family Housing: Apartment Do you presently have visiting nurse or other home services: No Alcohol intake: never Patient Tobacco Use Status: Never used Tobacco Advance Directives: Yes Advance Directives Information Provided: No Advance Directives on File: No service: No Current occupational status: disabled Physical Exam ED Vital Signs: Vital Signs - 24 hr 04/15/23 14:07 Temperature 97.7 F Pulse Rate 93 Respiratory Rate 18 Blood Pressure 128/50 L Pulse Oximetry 95 Oxygen Delivery Method Room Air BMI result Body Mass Index 44.6 general appearance no acute distress Neck is supple Respiratory no distress Abdomen on the abdominal wall below the umbilicus on left side there is a small open area less than the size of a dime leaking some watery fluid no bradford pus, there is redness and mild induration in the area but no fluctuance Extremities range of motion x4 Course Course Course Narrative: This is an RME: Additional HPI, ROS, PE not included below will be deferred to primary provider. This is a 29-ieke-ste-female, with a history of?asthma/COPD overlap, insulin-dependent type 2 diabetes, hypertension, hypercholesterolemia, hypothyroidism, rheumatoid arthritis, hx PE on eliquis,?with complaints of rash under abdominal fold x 4 weeks. Endorsing subjective fevers and chills. Dr. Leo (PCP), placed her on unknown antibiotic which she took without any resolution of her symptoms. Plan: Basic labs Patient with a month of a slowly developing small wound in skin fold under the abdomen with surrounding redness, no abscess no fluctuance CBC, white count normal, no significant acute finding Chemistry bicarb normal 26, anion gap 12, creatinine 1.29, glucose 295, no signs ketoacidosis Patient seems to manage her glucose well at home, her sister who lives with her says it is rarely above 150 so she will continue her usual management and check fingersticks several times a day and if numbers are high will follow with primary doctor for insulin adjustment No sign of systemic illness and cellulitis and wound of abdominal wall and patient is discharged on Keflex and doxycycline Medical Decision Making Lab Data 04/15/23 14:26 04/15/23 14:26 Labs: Lab Results 04/15/23 04/15/23 04/15/23 Range/Units 14:26 14:26 14:32 WBC 5.6 (4.8-10.8) X10*3/uL RBC 3.42 L (4.20-5.50) X10*6/uL Hgb 10.1 L (12.0-16.0) g/dl Hct 30.9 L (37.0-47.0) % MCV 90.4 (80.0-98.0) fL MCH 29.5 (27.0-33.0) pg MCHC 32.7 (31.0-35.0) g/dl RDW 15.8 (11.0-16.0) % Plt Count 212 (160-400) X10*3/uL MPV 10.3 (9.4-12.3) fL Immature Gran % (Auto) 0.4 (0.0-0.4) % Neut % (Auto) 70.4 (45-73) % Lymph % (Auto) 16.7 L (20-40) % Divide % (Auto) 7.5 (2-11) % Eos % (Auto) 4.1 H (0-4) % Baso % (Auto) 0.9 (0-2) % Lymph # (Auto) 0.9 L (1.2-4.9) X10*3/uL [place] # (Auto) 0.4 (0.1-1.2) X10*3/uL Eos # (Auto) 0.2 (0.0-0.4) X10*3/uL Baso # (Auto) 0.1 (0.0-0.2) X10*3/uL Abs Immat Gran (auto) 0.02 (0.00-0.03) X10*3/uL Absolute Neuts (auto) 4.0 (2.0-8.3) x10*3/uL Absolute Nucleated RBC 0.000 (0.0-0.012) X10*3/uL Nucleated RBC % (auto) 0.0 (0.0-0.2) /100WBC Sodium 135 (135-145) mmol/L Potassium 4.6 (3.3-5.1) mmol/L Chloride 102 (96-108) mmol/L Carbon Dioxide 26 (22-29) mmol/L Anion Gap 12 (12-20) BUN 36 H (9-16) mg/dL Creatinine 1.29 (0.5-1.4) mg/dL Estim Creat Clear Calc 46.7 Estimated GFR 41 POC Glucose 303 H (60-115) mg/dL Random Glucose 295 H (60-115) mg/dL Calcium 9.9 (8.4-10.2) mg/dL Discharge Plan Discharge Clinical Impression: Cellulitis Patient Disposition: Home, Self-Care Additional Instructions: there is no sign of any dangerous infection or illness at this moment in time Return any time for spreading redness, worse pain and swelling, fever, any worse condition or any concerns I gave the number for wound clinic for the wound on the abdomen, and hopefully they can make an appointment for you soon Prescriptions: New cephalexin 500 mg tablet 500 mg PO QID 7 Days Qty: 28 0RF doxycycline hyclate 100 mg capsule 100 mg PO BID 7 Days Qty: 14 0RF No Action levothyroxine 50 mcg tablet 50 mcg PO DAILY@0600 simvastatin 20 mg tablet 20 mg PO BEDTIME montelukast 10 mg tablet 10 mg PO BEDTIME losartan 100 mg tablet 100 mg PO DAILY insulin aspart U-100 [Novolog FlexPen U-100 Insulin] 100 unit/mL (3 mL) insulin pen 40 unit subcut TID metformin 750 mg tablet extended release 24 hr 750 mg PO DAILY Eliquis 5 mg tablet 5 mg PO BID albuterol sulfate 90 mcg/actuation HFA aerosol inhaler 2 puff INHALATION Q4H PRN (Reason: Shortness Of Breath Or Wheezing) Rasuvo (PF) 25 mg/0.5 mL auto-injector 25 mg subcut RIOS citalopram 20 mg tablet 20 mg PO DAILY albuterol sulfate 2.5 mg /3 mL (0.083 %) solution for nebulization 2.5 mg inhalation Q4H PRN (Reason: asthma) fluticasone propion-salmeterol [Advair Diskus] 500-50 mcg/dose blister with device 1 ea inhalation BID calcium carbonate-vitamin D3 600 mg-5 mcg (200 unit) Tablet 1 tab PO DAILY ferrous sulfate 325 mg (65 mg iron) Tablet 325 mg PO DAILY insulin glargine [Basaglar KwikPen U-100 Insulin] 100 unit/mL (3 mL) insulin pen 40 unit subcut BID Qty: 15 0RF spironolactone [Aldactone] 50 mg tablet 50 mg PO QAM Qty: 30 0RF
[2023-04-15 14:36] LABS: Glucose, Whole Blood 303 mg/dL (60-115)
[2023-04-15 14:36] LABS: MANUAL DIFF FLAG NO
[2023-04-15 14:40] LABS: Basophils Absolute Auto 0.1 X10*3/uL (0.0-0.2); Basophils Percent Auto 0.9 % (0-2); Eosinophils Absolute Auto 0.2 X10*3/uL (0.0-0.4); Eosinophils Percent Auto 4.1 % (0-4); Hematocrit 30.9 % (37.0-47.0); Hemoglobin 10.1 g/dl (12.0-16.0); Imm Gran Abs Auto 0.02 X10*3/uL (0.00-0.03); Imm Gran Pct Auto 0.4 % (0.0-0.4); Lymphocytes Absolute Auto 0.9 X10*3/uL (1.2-4.9); Lymphocytes Percent Auto 16.7 % (20-40); Mean Corpuscular HGB Conc 32.7 g/dl (31.0-35.0); Mean Corpuscular Hemoglobin 29.5 pg (27.0-33.0); Mean Corpuscular Volume 90.4 fL (80.0-98.0); Mean Platelet Volume 10.3 fL (9.4-12.3); Monocytes Absolute Auto 0.4 X10*3/uL (0.1-1.2); Monocytes Percent Auto 7.5 % (2-11); Neutrophils Percent Auto 70.4 % (45-73); Platelet Count 212 X10*3/uL (160-400); Red Blood Count 3.42 X10*6/uL (4.20-5.50); Red Cell Distribution Width 15.8 % (11.0-16.0); White Blood Count 5.6 X10*3/uL (4.8-10.8)
[2023-04-15 14:49] LABS: Anion Gap 12 (12-20); Blood Urea Nitrogen 36 mg/dL (9-16); Calcium 9.9 mg/dL (8.4-10.2); Carbon Dioxide 26 mmol/L (22-29); Chloride 102 mmol/L (96-108); Creatinine Clr Calc Pharmacy 46.7; Estimated Glomerular Filt Rate 41; Glucose Random 295 mg/dL (60-115); Potassium 4.6 mmol/L (3.3-5.1); Sodium 135 mmol/L (135-145)
--- NOTE | 2023-04-15 15:33 | PC.NURSE ---
pt medicated per MAR
== END 2023-04-15 15:34 | disposition home or self-care (01) ==
PROVIDERS: Physician Assistant Medical; Emergency Provider Emergency Medicine Emergency Medical Services; PCP Internal Medicine
DX: L03.311 Cellulitis of abdominal wall (principal); R21 Rash and other nonspecific skin eruption; E11.9 Type 2 diabetes mellitus without complications; I10 Essential (primary) hypertension; E78.5 Hyperlipidemia, unspecified; Z86.711 Personal history of pulmonary embolism; Z79.01 Long term (current) use of anticoagulants; Z79.899 Other long term (current) drug therapy; Z79.4 Long term (current) use of insulin
CPT/HCPCS: 36415; 80048; 82947; 85025; 87070; 87205; 99282; 99283

== ENCOUNTER 2023-05-20 14:14 | Emergency (ER) | payer MEDICARE, SELFPAY ==
--- NOTE | ~2023-05-20 | CT_ITS ---
EXAMINATION: CT ABDOMEN AND PELVIS WITHOUT CONTRAST CLINICAL INFORMATION: Abdominal pain. COMPARISON: 02/19/2023 TECHNIQUE: Multidetector volumetric imaging was performed from the superior aspect of the liver through the pubic symphysis. Sagittal and coronal reformatted images were obtained on the technologist's workstation. This CT examination was performed using dose optimization techniques as appropriate, variously including the following: *Automated exposure control *Adjustment of mA and/or kV according to patient size (this includes techniques or standardized protocols for targeted exams where dose is matched to indication/reason for exam; i.e. extremities or head) *Use of iterative reconstruction technique DLP: 823 mGy-cm FINDINGS: LUNG BASES: There is a small left pleural effusion with associated atelectasis. LIVER, GALLBLADDER, AND BILIARY TREE: The liver is irregular in contour. The gallbladder is unremarkable with no evidence of radiopaque gallstones, gallbladder wall thickening, or obvious pericholecystic inflammatory changes. PANCREAS: There appears to be minimal peripancreatic infiltration. SPLEEN: Unremarkable. ADRENAL GLANDS: Unremarkable. KIDNEYS AND URETERS: The kidneys are normal in size, shape, and attenuation. No hydronephrosis, hydroureter, or calculi seen. No perinephric stranding. BLADDER: Unremarkable. GASTROINTESTINAL TRACT: There are diverticula of the descending colon without diverticulitis. The appendix is not confidently identified as a separate structure. ABDOMINAL WALL: No significant hernia is appreciated. LYMPH NODES: Normal. VASCULAR: There is atherosclerotic plaque of the abdominal aorta and proximal branches. PELVIC VISCERA: Unremarkable. OSSEOUS STRUCTURES: Unremarkable. CT/CT abdomen pelvis wo IV con IMPRESSION: 1. Small left pleural effusion with atelectasis. 2. Irregular liver consistent with hepatocellular disease/cirrhosis. 3. Minimal peripancreatic infiltration is subtle but could represent mild pancreatitis. Correlation with pancreatic enzymes needed. 4. Diverticula of the descending colon without diverticulitis. Fleischner guidelines were followed.
[2023-05-20 14:53] VITALS: BP 119/47; PULSE 88; RESP 18; TEMP 36.8; O2SAT 93; BMI 43.7
--- NOTE | 2023-05-20 14:55 | ED.GENADULT ---
HPI - General Adult General Stated complaint: rash on abd fold? Related Data Home Medications Medication Instructions Recorded Confirmed albuterol sulfate 2.5 mg/3 mL 2.5 mg inhalation Q4H PRN asthma 01/20/23 02/19/23 (0.083 %) solution for nebulization albuterol sulfate 90 mcg/actuation 2 puff inhalation Q4H PRN 01/20/23 02/19/23 aerosol inhaler Shortness Of Breath Or Wheezing apixaban 5 mg tablet (Eliquis) 5 mg PO BID 01/20/23 02/19/23 calcium carbonate 600 mg-vitamin 1 tab PO DAILY 01/20/23 02/19/23 D3 5 mcg (200 unit) tablet citalopram 20 mg tablet 20 mg PO DAILY 01/20/23 02/19/23 ferrous sulfate 325 mg (65 mg 325 mg PO DAILY 01/20/23 02/19/23 iron) tablet fluticasone 500 mcg-salmeterol 50 1 ea inhalation BID 01/20/23 02/19/23 mcg/dose blistr powdr for inhalation (Advair Diskus) insulin aspart U-100 100 unit/mL 40 unit subcut TID 01/20/23 02/19/23 (3 mL) subcutaneous pen (Novolog FlexPen U-100 Insulin aspart) levothyroxine 50 mcg tablet 50 mcg PO DAILY@0600 01/20/23 02/19/23 losartan 100 mg tablet 100 mg PO DAILY 01/20/23 02/19/23 metformin 750 mg tablet,extended 750 mg PO DAILY 01/20/23 02/19/23 release 24 hr methotrexate (PF) 25 mg/0.5 mL 25 mg subcut RIOS 01/20/23 02/19/23 subcutaneous auto-injector (Rasuvo (PF)) montelukast 10 mg tablet 10 mg PO BEDTIME 01/20/23 02/19/23 simvastatin 20 mg tablet 20 mg PO BEDTIME 01/20/23 02/19/23 Previous Rx's Medication Instructions Recorded insulin glargine 100 unit/mL (3 40 unit (0.4 mL) subcut BID #15 mL 01/22/23 mL) subcutaneous pen (Basaglar KwikPen U-100 Insulin) spironolactone 50 mg tablet 50 mg PO QAM #30 tabs 02/20/23 (Aldactone) cephalexin 500 mg tablet 500 mg PO QID 7 days #28 tabs 04/15/23 doxycycline hyclate 100 mg capsule 100 mg PO BID 7 days #14 caps 04/15/23 Allergies Allergy/AdvReac Type Severity Reaction Status Date / Time rosuvastatin [From CRESTOR] Allergy Unknown Unknown Verified 04/15/23 14:07 [facility] Past Medical History Medical History Asthma-COPD overlap syndrome Depression Diabetes mellitus, type 2 Hyperlipidemia Hypertension Hypothyroidism Pulmonary embolism Rheumatoid arthritis Social History Social History Household Members: Family Housing: Apartment Do you presently have visiting nurse or other home services: No Alcohol intake: never Patient Tobacco Use Status: Never used Tobacco service: No Current occupational status: disabled Course Course Course Narrative: This is an RME: Additional HPI, ROS, PE not included below will be deferred to primary provider. This is a 64-kmlb-rxu-female, hx of asthma/COPD overlap, type 2 diabetes, hypertension, hypothyroidism, history of PE on Eliquis, anemia, HLD, osteoarthritis, and rheumatoid arthritis, presenting to the emergency department with a complaint of rash below abdominal fold. Pt was seen in April for the same symptoms. Got better on cephalexin and doxycycline, worsened over the last 4 days. Patient denies any fevers or chills. She is otherwise feeling okay. Plan: Basic labs Discharge Plan Discharge Prescriptions: No Action levothyroxine 50 mcg tablet 50 mcg PO DAILY@0600 simvastatin 20 mg tablet 20 mg PO BEDTIME montelukast 10 mg tablet 10 mg PO BEDTIME losartan 100 mg tablet 100 mg PO DAILY insulin aspart U-100 [Novolog FlexPen U-100 Insulin] 100 unit/mL (3 mL) insulin pen 40 unit subcut TID metformin 750 mg tablet extended release 24 hr 750 mg PO DAILY Eliquis 5 mg tablet 5 mg PO BID albuterol sulfate 90 mcg/actuation HFA aerosol inhaler 2 puff INHALATION Q4H PRN (Reason: Shortness Of Breath Or Wheezing) Rasuvo (PF) 25 mg/0.5 mL auto-injector 25 mg subcut RIOS citalopram 20 mg tablet 20 mg PO DAILY albuterol sulfate 2.5 mg /3 mL (0.083 %) solution for nebulization 2.5 mg inhalation Q4H PRN (Reason: asthma) fluticasone propion-salmeterol [Advair Diskus] 500-50 mcg/dose blister with device 1 ea inhalation BID calcium carbonate-vitamin D3 600 mg-5 mcg (200 unit) Tablet 1 tab PO DAILY ferrous sulfate 325 mg (65 mg iron) Tablet 325 mg PO DAILY insulin glargine [Basaglar KwikPen U-100 Insulin] 100 unit/mL (3 mL) insulin pen 40 unit subcut BID Qty: 15 0RF spironolactone [Aldactone] 50 mg tablet 50 mg PO QAM Qty: 30 0RF cephalexin 500 mg tablet 500 mg PO QID 7 Days Qty: 28 0RF doxycycline hyclate 100 mg capsule 100 mg PO BID 7 Days Qty: 14 0RF
[2023-05-20 15:38] LABS: MANUAL DIFF FLAG NO
[2023-05-20 15:41] LABS: Basophils Absolute Auto 0.1 X10*3/uL (0.0-0.2); Eosinophils Absolute Auto 0.3 X10*3/uL (0.0-0.4); Eosinophils Percent Auto 4.2 % (0-4); Hematocrit 29.1 % (37.0-47.0); Hemoglobin 9.3 g/dl (12.0-16.0); Imm Gran Abs Auto 0.02 X10*3/uL (0.00-0.03); Imm Gran Pct Auto 0.3 % (0.0-0.4); Lymphocytes Absolute Auto 1.1 X10*3/uL (1.2-4.9); Lymphocytes Percent Auto 15.7 % (20-40); Mean Corpuscular Volume 90.7 fL (80.0-98.0); Mean Platelet Volume 10.3 fL (9.4-12.3); Monocytes Absolute Auto 0.6 X10*3/uL (0.1-1.2); Monocytes Percent Auto 8.7 % (2-11); Neutrophils Absolute Auto 4.8 x10*3/uL (2.0-8.3); Neutrophils Percent Auto 70.1 % (45-73); Platelet Count 165 X10*3/uL (160-400); Red Blood Count 3.21 X10*6/uL (4.20-5.50); Red Cell Distribution Width 17.2 % (11.0-16.0); White Blood Count 6.9 X10*3/uL (4.8-10.8)
[2023-05-20 15:56] LABS: Alanine Aminotransferase 40 U/L (0-31); Alkaline Phosphatase 128 U/L (39-117); Anion Gap 14 (12-20); Aspartate Amino Transferase 76 U/L (5-31); Bilirubin Direct 0.6 mg/dL (0.0-0.5); Bilirubin Total 1.3 mg/dL (0.0-1.0); Blood Urea Nitrogen 33 mg/dL (9-16); Calcium 9.8 mg/dL (8.4-10.2); Carbon Dioxide 26 mmol/L (22-29); Chloride 104 mmol/L (96-108); Creatinine Clr Calc Pharmacy 46.7; Estimated Glomerular Filt Rate 40; Glucose Random 297 mg/dL (60-115); Potassium 4.8 mmol/L (3.3-5.1); Sodium 139 mmol/L (135-145); Total Protein 7.4 g/dL (6.5-8.0)
[2023-05-20 19:26] LABS: Glucose, Whole Blood 267 mg/dL (60-115)
[2023-05-20 20:22] VITALS: BP 150/61; PULSE 88; RESP 20; TEMP 36.8; O2SAT 96
--- NOTE | 2023-05-20 21:47 | ED_ITS ---
HPI - General Adult General Chief complaint: General Medical Stated complaint: rash on abd fold? Time Seen by Provider: 05/20/23 20:15 History of Present Illness HPI narrative: Patient is a 72-year-old female presents today with having left lower abdominal pain. Patient had a lesion in her pannus. Patient's field there was purulent material draining. Came to the ED for help. No systemic complaints. No nausea no vomiting. No chest pain or shortness of breath. No difficulty having bowel movements. No diaphoresis. Had similar issues in the past. It drained out. Related Data Home Medications Medication Instructions Recorded Confirmed albuterol sulfate 2.5 mg/3 mL 2.5 mg inhalation Q4H PRN asthma 01/20/23 02/19/23 (0.083 %) solution for nebulization albuterol sulfate 90 mcg/actuation 2 puff inhalation Q4H PRN 01/20/23 02/19/23 aerosol inhaler Shortness Of Breath Or Wheezing apixaban 5 mg tablet (Eliquis) 5 mg PO BID 01/20/23 02/19/23 calcium carbonate 600 mg-vitamin 1 tab PO DAILY 01/20/23 02/19/23 D3 5 mcg (200 unit) tablet citalopram 20 mg tablet 20 mg PO DAILY 01/20/23 02/19/23 ferrous sulfate 325 mg (65 mg 325 mg PO DAILY 01/20/23 02/19/23 iron) tablet fluticasone 500 mcg-salmeterol 50 1 ea inhalation BID 01/20/23 02/19/23 mcg/dose blistr powdr for inhalation (Advair Diskus) insulin aspart U-100 100 unit/mL 40 unit subcut TID 01/20/23 02/19/23 (3 mL) subcutaneous pen (Novolog FlexPen U-100 Insulin aspart) levothyroxine 50 mcg tablet 50 mcg PO DAILY@0600 01/20/23 02/19/23 losartan 100 mg tablet 100 mg PO DAILY 01/20/23 02/19/23 metformin 750 mg tablet,extended 750 mg PO DAILY 01/20/23 02/19/23 release 24 hr methotrexate (PF) 25 mg/0.5 mL 25 mg subcut RIOS 01/20/23 02/19/23 subcutaneous auto-injector (Rasuvo (PF)) montelukast 10 mg tablet 10 mg PO BEDTIME 01/20/23 02/19/23 simvastatin 20 mg tablet 20 mg PO BEDTIME 01/20/23 02/19/23 Previous Rx's Medication Instructions Recorded insulin glargine 100 unit/mL (3 40 unit (0.4 mL) subcut BID #15 mL 01/22/23 mL) subcutaneous pen (Basaglar KwikPen U-100 Insulin) spironolactone 50 mg tablet 50 mg PO QAM #30 tabs 02/20/23 (Aldactone) cephalexin 500 mg tablet 500 mg PO QID 7 days #28 tabs 04/15/23 doxycycline hyclate 100 mg capsule 100 mg PO BID 7 days #14 caps 04/15/23 doxycycline hyclate 100 mg tablet 100 mg PO BID 7 days #14 tabs 05/21/23 Allergies Allergy/AdvReac Type Severity Reaction Status Date / Time rosuvastatin [From CRESTOR] Allergy Unknown Unknown Verified 04/15/23 14:07 Review of Systems Review of Systems: She is in the ED no fever no chills no chest pain no pain on urination PMFSH Past Medical History Attestation statement: The following information was validated with the patient. Medical History Asthma-COPD overlap syndrome Depression Diabetes mellitus, type 2 Hyperlipidemia Hypertension Hypothyroidism Pulmonary embolism Rheumatoid arthritis Social History Social History Household Members: Family Housing: Apartment Do you presently have visiting nurse or other home services: No Alcohol intake: never Patient Tobacco Use Status: Never used Tobacco Smoked in Last 30 Days: No Use of substances other than those prescribed or required for medical reasons: No Advance Directives: No Advance Directives Information Provided: No service: No Current occupational status: disabled Physical Exam ED Vital Signs: Vital Signs - 24 hr 05/20/23 14:53 05/20/23 20:22 05/20/23 23:13 Temperature 98.2 F 98.2 F 98.4 F Pulse Rate 88 88 87 Respiratory Rate 18 20 20 Blood Pressure 119/47 L 150/61 H 134/50 L Pulse Oximetry 93 96 95 Oxygen Delivery Method Room Air Room Air Room Air BMI result Body Mass Index 43.7 Appearance: Alert. Oriented X3. No acute distress. Eyes: Pupils equal, round and reactive to light. ENT: Pharynx normal. Neck: Normal inspection. Neck supple. No lymph nodes noted. No crepitus CVS: Normal heart rate and rhythm. Pulses normal. Normal S1 and S2 Respiratory: No respiratory distress. Breath sounds normal. No Wheezing. No rales Abdomen: Soft and nontender. No rigidity. No distention. good BS x4 Skin: Positive indurated mass in the left lower quadrant in a skin fold. Draining purulent material. Extremities: No lower extremity edema. Neurovascular intact to all extremities. No Lacerations. No Rash Neuro: Oriented X 3. No motor deficit. No sensory deficit. Moving all extermities. No slurred speech Medications Administered Discontinued Medications Generic Name Dose Route Start Last Admin Trade Name Freq PRN Reason Stop Dose Admin Ampicillin Sodium/Sulbactam 100 mls @ 200 mls/hr 05/20/23 21:45 05/20/23 23 :11 Sodium 3 gm/ Sodium Chloride IV 05/20/23 22:14 Not Given ONCE ONE Medical Decision Making Medical Decision Making [facility] Narrative: Patient is 72-year-old female presented today with having a lesion that is draining pus from the left abdominal wall. There is it feels indurated at this time. There is no gross fluctuance palpable. CT scan of the abdomen pelvis was done. It did not show it checking in to the abdomen. We will go ahead and start patient on antibiotic as it is clearly draining at this point. Patient's white count is normal. Creatinine is 1.3. Currently in stable condition. Differential Diagnosis Differential Diagnoses: The differential diagnosis associated with the presentation includes Cellulitis versus abscess that tracks into the abdomen Admission/Observation Consideration of admission/observation: Escalation of care including admission/observation considered Patient white count normal well appearing no distress Lab Data [facility] Lab Attestation statement: I reviewed the patient's lab results. 05/20/23 15:34 05/20/23 15:34 Labs: Lab Results 05/20/23 05/20/23 05/20/23 Range/Units 15:34 15:34 19:21 WBC 6.9 (4.8-10.8) X10*3/uL RBC 3.21 L (4.20-5.50) X10*6/uL Hgb 9.3 L (12.0-16.0) g/dl Hct 29.1 L (37.0-47.0) % MCV 90.7 (80.0-98.0) fL MCH 29.0 (27.0-33.0) pg MCHC 32.0 (31.0-35.0) g/dl RDW 17.2 H (11.0-16.0) % Plt Count 165 (160-400) X10*3/uL MPV 10.3 (9.4-12.3) fL Immature Gran % (Auto) 0.3 (0.0-0.4) % Neut % (Auto) 70.1 (45-73) % Lymph % (Auto) 15.7 L (20-40) % [place] % (Auto) 8.7 (2-11) % Eos % (Auto) 4.2 H (0-4) % Baso % (Auto) 1.0 (0-2) % Lymph # (Auto) 1.1 L (1.2-4.9) X10*3/uL [place] # (Auto) 0.6 (0.1-1.2) X10*3/uL Eos # (Auto) 0.3 (0.0-0.4) X10*3/uL Baso # (Auto) 0.1 (0.0-0.2) X10*3/uL Abs Immat Gran (auto) 0.02 (0.00-0.03) X10*3/uL Absolute Neuts (auto) 4.8 (2.0-8.3) x10*3/uL Absolute Nucleated RBC 0.000 (0.0-0.012) X10*3/uL Nucleated RBC % (auto) 0.0 (0.0-0.2) /100WBC Sodium 139 (135-145) mmol/L Potassium 4.8 (3.3-5.1) mmol/L Chloride 104 (96-108) mmol/L Carbon Dioxide 26 (22-29) mmol/L Anion Gap 14 (12-20) BUN 33 H (9-16) mg/dL Creatinine 1.31 (0.5-1.4) mg/dL Estim Creat Clear Calc 46.7 Estimated GFR 40 POC Glucose 267 H (60-115) mg/dL Random Glucose 297 H (60-115) mg/dL Calcium 9.8 (8.4-10.2) mg/dL Total Bilirubin 1.3 H (0.0-1.0) mg/dL Direct Bilirubin 0.6 H (0.0-0.5) mg/dL AST 76 H (5-31) U/L ALT 40 H (0-31) U/L Alkaline Phosphatase 128 H (39-117) U/L Total Protein 7.4 (6.5-8.0) g/dL Albumin 3.0 L (3.5-5.0) g/dL Radiology Impression Discussion of test interpretation with radiology: I have reviewed the radiologist's reading. External Record Review External record reviewed: Inpatient record Prescription Management I considered prescription management with: Antibiotic Chronic Conditions Patient?s care impacted by: Diabetes and Hypertension Discharge Plan Discharge Clinical Impression: Abscess Patient Disposition: Home, Self-Care Instructions: Abscess (ED) Prescriptions: New doxycycline hyclate 100 mg tablet 100 mg PO BID 7 Days Qty: 14 0RF No Action levothyroxine 50 mcg tablet 50 mcg PO DAILY@0600 simvastatin 20 mg tablet 20 mg PO BEDTIME montelukast 10 mg tablet 10 mg PO BEDTIME losartan 100 mg tablet 100 mg PO DAILY insulin aspart U-100 [Novolog FlexPen U-100 Insulin] 100 unit/mL (3 mL) insulin pen 40 unit subcut TID metformin 750 mg tablet extended release 24 hr 750 mg PO DAILY Eliquis 5 mg tablet 5 mg PO BID albuterol sulfate 90 mcg/actuation HFA aerosol inhaler 2 puff INHALATION Q4H PRN (Reason: Shortness Of Breath Or Wheezing) Rasuvo (PF) 25 mg/0.5 mL auto-injector 25 mg subcut RIOS citalopram 20 mg tablet 20 mg PO DAILY albuterol sulfate 2.5 mg /3 mL (0.083 %) solution for nebulization 2.5 mg inhalation Q4H PRN (Reason: asthma) fluticasone propion-salmeterol [Advair Diskus] 500-50 mcg/dose blister with device 1 ea inhalation BID calcium carbonate-vitamin D3 600 mg-5 mcg (200 unit) Tablet 1 tab PO DAILY ferrous sulfate 325 mg (65 mg iron) Tablet 325 mg PO DAILY insulin glargine [Basaglar KwikPen U-100 Insulin] 100 unit/mL (3 mL) insulin pen 40 unit subcut BID Qty: 15 0RF spironolactone [Aldactone] 50 mg tablet 50 mg PO QAM Qty: 30 0RF cephalexin 500 mg tablet 500 mg PO QID 7 Days Qty: 28 0RF doxycycline hyclate 100 mg capsule 100 mg PO BID 7 Days Qty: 14 0RF Referrals: [facility]Provider Group] - 05/24/23
--- NOTE | 2023-05-20 22:09 | PC.NURSE ---
Pt presents to ER for a wound under her stomach. Dr Rodriguez assessed wound at bedside and colleed a culture sample. Pt stated her pain was not bad prior to assessment, but after assessment her pain is 8/10. Pt is A&Ox4, GCS 15. Attempted an IV twice, unsuccessful. PIPPA Landa will attempt. Pt assisted to bedside commode.Pt states she normally walks around her home, but is feeling weak today. Pt now in bed comfortably.
--- NOTE | 2023-05-20 22:33 | PC.NURSE ---
Multiple IV attempts unsuccessful, Dr Rodriguez notified. Plan for CT without contrast and oral ABX. Primary RN notified.
--- NOTE | 2023-05-20 23:10 | PC.NURSE ---
Unable to acess IV, MD aware. Pt CT will be w/o contrast, and pt will get PO antibiotics.
[2023-05-20 23:13] VITALS: BP 134/50; PULSE 87; RESP 20; TEMP 36.9; O2SAT 95
[2023-05-21] MEDS: Doxycycline Monohydrate 100 MG CAPSULE PO (01:30)
== END 2023-05-21 01:45 | disposition home or self-care (01) ==
PROVIDERS: Physician Assistant Medical; Emergency Provider Emergency Medicine Emergency Medical Services; PCP Internal Medicine
DX: L02.211 Cutaneous abscess of abdominal wall (principal); R10.32 Left lower quadrant pain; Z79.899 Other long term (current) drug therapy
CPT/HCPCS: 36415; 74176; 80048; 80076; 82947; 85025; 99284

== ENCOUNTER 2023-05-31 16:56 | Inpatient (IN) | payer MEDICARE, SELFPAY ==
--- NOTE | ~2023-05-31 | CT_ITS ---
EXAMINATION: CT ABDOMEN AND PELVIS WITH CONTRAST CLINICAL INFORMATION: Left lower abdominal wound with malodorous drainage. Question tracking. COMPARISON: 05/20/2023 TECHNIQUE: Multidetector volumetric images were obtained from the superior aspect of the liver through the pubic symphysis following administration 85 mL of Omnipaque 350 intravenous contrast. Sagittal and coronal reformatted images were obtained on the technologist's workstation. Oral contrast: No This CT examination was performed using dose optimization techniques as appropriate, variously including the following: *Automated exposure control *Adjustment of mA and/or kV according to patient size (this includes techniques or standardized protocols for targeted exams where dose is matched to indication/reason for exam; i.e. extremities or head) *Use of iterative reconstruction technique DLP: 1123 mGy-cm FINDINGS: LUNG BASES: There is a small effusion at the left lower lobe with dependent atelectasis. Dense calcification is present at the mitral valve. Heart appears normal in size. LIVER, GALLBLADDER, AND BILIARY TREE: The liver has a subtle nodular contour with relative hypertrophy of the left hepatic lobe, suggestive of cirrhosis. Liver is normal in size. No focal lesions are identified on this study. No biliary ductal dilatation. The gallbladder is unremarkable with no evidence of radiopaque gallstones, gallbladder wall thickening, or obvious pericholecystic inflammatory changes. PANCREAS: Pancreas is normal in size. There is mild mesenteric and retroperitoneal fat stranding, similar prior. SPLEEN: Unremarkable. ADRENAL GLANDS: Unremarkable. KIDNEYS AND URETERS: The kidneys are normal in size, shape, and attenuation. No hydronephrosis, hydroureter, or calculi seen. No perinephric stranding. BLADDER: Unremarkable. GASTROINTESTINAL TRACT: Stomach, small bowel, and colon are normal in caliber. No bowel wall thickening or surrounding inflammatory changes. There is mild colonic diverticulosis. A small diverticulum is present at the third portion of the duodenum. No evidence of acute diverticulitis. Moderate volume stool in the colon. No intraperitoneal ascites. Appendix is normal. No free air. ABDOMINAL WALL: Subcutaneous fat stranding is evident bilaterally and posteriorly. No hernias. Small 1.4 cm focus of gas within the subcutaneous fat in the left lower quadrant anterolaterally may with surrounding fat stranding, potentially corresponding to a small wound. There is overlying skin thickening, likely corresponding to cellulitis. No drainable fluid collections are identified in this region. Multiple injection granulomas are identified. LYMPH NODES: No appreciable adenopathy. VASCULAR: Calcific atherosclerosis is present throughout the abdominal aorta, iliac arteries, femoral arteries, and the visceral arteries. No aneurysmal dilatation. Numerous small collateral vessels are evident in the abdomen and pelvis. PELVIC VISCERA: Uterus appears surgically absent. At the left ovary, there are 2 unilocular fluid attenuation cystic foci without significant internal complexity, measuring 2.7 and 2.5 cm. These are almost certainly benign in this postmenopausal patient. No recommend imaging follow-up. OSSEOUS STRUCTURES: Mild to moderate multilevel degenerative disc disease and facet arthropathy in the lumbar spine. Mild osteoarthritis in the hips. No acute osseous findings. CT/CT abdomen pelvis w IV con IMPRESSION: 1. Small 1.4 cm focus of gas within the subcutaneous fat in the left lower quadrant anterolaterally with surrounding fat stranding, potentially corresponding to a small wound in the region of cellulitis. No drainable fluid collections are identified. The collection does not extend beyond the local subcutaneous fat in this region and does not reach the underlying fascial planes. 2. Small left pleural effusion with dependent atelectasis. 3. Hepatic cirrhosis. 4. Mild colonic diverticulosis without evidence of acute diverticulitis. 5. Mild anasarca Fleischner guidelines were followed.
[2023-05-31 17:10] VITALS: BP 123/46; PULSE 91; RESP 18; TEMP 37.3; O2SAT 96; BMI 42.7
--- NOTE | 2023-05-31 17:13 | ED.SKABFB ---
HPI - Skin/Abscess/Foreign Bdy General Chief complaint: Wound/Laceration Stated complaint: abdominal pain Time Seen by Provider: 05/31/23 17:34 Source: patient, RN notes reviewed and old records reviewed Mode of arrival: ambulatory History of Present Illness HPI narrative: 72-year-old female with a past medical history of asthma/COPD overlap syndrome, depression, diabetes, HTN, HLD, hypothyroid, PE, RA, presenting to ED complaining of nonhealing wound with malodorous drainage noted to left lower abdomen x months. Patient has been seen and evaluated in our ED multiple times for similar symptoms, finished course of antibiotics from PCP, Doxycycline/Keflex prescribed on 04/15 and additional course of Doxycycline prescribed on 05/20 in this ED without relief. Sister reports continued drainage and fear of tracking. Patient reports continued abdominal pain. Denies nausea/vomiting, fever. Patient has been unable to get in with wound care. Denies urinary symptoms MD complaint: abscess/boil Related Data Home Medications Medication Instructions Recorded Confirmed albuterol sulfate 2.5 mg/3 mL 2.5 mg inhalation Q4H PRN asthma 01/20/23 02/19/23 (0.083 %) solution for nebulization albuterol sulfate 90 mcg/actuation 2 puff inhalation Q4H PRN 01/20/23 02/19/23 aerosol inhaler Shortness Of Breath Or Wheezing apixaban 5 mg tablet (Eliquis) 5 mg PO BID 01/20/23 02/19/23 calcium carbonate 600 mg-vitamin 1 tab PO DAILY 01/20/23 02/19/23 D3 5 mcg (200 unit) tablet citalopram 20 mg tablet 20 mg PO DAILY 01/20/23 02/19/23 ferrous sulfate 325 mg (65 mg 325 mg PO DAILY 01/20/23 02/19/23 iron) tablet fluticasone 500 mcg-salmeterol 50 1 ea inhalation BID 01/20/23 02/19/23 mcg/dose blistr powdr for inhalation (Advair Diskus) insulin aspart U-100 100 unit/mL 40 unit subcut TID 01/20/23 02/19/23 (3 mL) subcutaneous pen (Novolog FlexPen U-100 Insulin aspart) levothyroxine 50 mcg tablet 50 mcg PO DAILY@0600 01/20/23 02/19/23 losartan 100 mg tablet 100 mg PO DAILY 01/20/23 02/19/23 metformin 750 mg tablet,extended 750 mg PO DAILY 01/20/23 02/19/23 release 24 hr methotrexate (PF) 25 mg/0.5 mL 25 mg subcut RIOS 01/20/23 02/19/23 subcutaneous auto-injector (Rasuvo (PF)) montelukast 10 mg tablet 10 mg PO BEDTIME 01/20/23 02/19/23 simvastatin 20 mg tablet 20 mg PO BEDTIME 01/20/23 02/19/23 Previous Rx's Medication Instructions Recorded insulin glargine 100 unit/mL (3 40 unit (0.4 mL) subcut BID #15 mL 01/22/23 mL) subcutaneous pen (Basaglar KwikPen U-100 Insulin) spironolactone 50 mg tablet 50 mg PO QAM #30 tabs 02/20/23 (Aldactone) cephalexin 500 mg tablet 500 mg PO QID 7 days #28 tabs 04/15/23 doxycycline hyclate 100 mg capsule 100 mg PO BID 7 days #14 caps 04/15/23 doxycycline hyclate 100 mg tablet 100 mg PO BID 7 days #14 tabs 05/21/23 Allergies Allergy/AdvReac Type Severity Reaction Status Date / Time rosuvastatin [From CRESTOR] Allergy Unknown Unknown Verified 04/15/23 14:07 empagliflozin Allergy Unknown Verified 05/31/23 17:17 [From Jardiance] piperacillin [From Zosyn] AdvReac Intermediate Vomiting Verified 05/31/23 19:29 tazobactam [From Zosyn] AdvReac Intermediate Vomiting Verified 05/31/23 19:29 Review of Systems Review of Systems: Constitutional: No Fever, No Chills, No Fatigue, No Malaise ENT/Mouth: No Hearing loss, No Ear Pain, No Nasal Congestion, No sore throat, No Rhinorrhea, No Swallowing Difficulty Cardiovascular: No Chest Pain, No SOB, No Edema, No Palpitations Respiratory: No Cough, No Sputum, No Dyspnea Gastrointestinal: No Nausea, No Vomiting, No Diarrhea, No Constipation, +Abdominal pain Genitourinary: No Dysuria, No Urinary Frequency, No Hematuria, No Urinary Incontinence/retention, No Flank Pain Musculoskeletal: No joint pain, No Myalgias, No Joint Swelling Skin: + Skin Lesions, No rash Neuro: No Weakness, No Headache Yes all other systems are reviewed and are negative Constitutional: Constitutional: Reports as per [facility] Past Medical History Attestation statement: The following information was validated with the patient. Source: old records reviewed Medical History Asthma-COPD overlap syndrome Depression Diabetes mellitus, type 2 Hyperlipidemia Hypertension Hypothyroidism Pulmonary embolism Rheumatoid arthritis Social History Social History Household Members: Family Housing: Apartment Do you presently have visiting nurse or other home services: No Alcohol intake: never Patient Tobacco Use Status: Never used Tobacco Advance Directives: No Advance Directives Information Provided: No service: No Current occupational status: disabled Physical Exam Vital Signs: Vital Signs: Last Vital Signs Temp 99.0 F 05/31/23 22:43 Pulse 84 05/31/23 22:43 Resp 16 05/31/23 22:43 BP 114/43 L 05/31/23 22:43 Pulse Ox 96 05/31/23 22:43 O2 Del Method Room Air 05/31/23 22:43 BMI result Body Mass Index 42.7 Const: General: cooperative, healthy appearing and no acute distress Orientation/consciousness: patient oriented x3 Limitations: no limitations HEENT: Head: Yes normal to inspection and Yes atraumatic Ears: hearing grossly normal bilaterally General nose exam: Normal external nose present Face and sinus: Yes normal facial exam Eyes: General: appearance normal, both eyes and all related structures EOM: EOMs intact bilaterally Neck: Neck: Yes normal visual inspection and Yes no meningeal signs Resp: Effort & Inspection: normal respiratory effort and no respiratory distress Cardio: Rate: regular rate GI: Other: Left lower quadrant/pannus with open draining malodorous wound. Surrounding induration noted with induration tracking to left abdominal wall. No fluctuance/erythema or warmth Inspection: Yes normal to inspection Palpation (GI): Soft to palpation, Tenderness to palpation present (GI) in the LLQ; with no rebound tenderness, no guarding and not rigid : General: Yes no CVA tenderness Back/Spine/Pelvis: Back: no CVA tenderness Skin: Rashes: no rashes Wounds: no wounds Neuro: General: patient oriented x3, tone normal and no meningeal signs Cranial nerves: Yes CN's II-XII intact bilaterally Gait exam (Neuro): Normal gait present Extrem: General: Yes normal to inspection Course Course Course Narrative: This is an RME: Additional HPI, ROS, PE not included below will be deferred to primary provider. This is a [id number]-female presenting to the emergency department with complaints of draining wound in abdomen. She has been to the emergency department twice for this same issue. Has completed multiple courses of abx without any relief. Reporting continued pain. Has had difficulty getting into wound clinic. VSS. Plan: Labs, further ER evaluation -1836--no leukocytosis. Acute on chronic anemia. BUN 38/Creatinine 1.44 > acute on chronically elevated will give IVF and repeat. Labs otherwise unremarkable/at patient's baseline -1845--lactic acid elevated 3.6 > likely secondary to metformin. Low suspicion for severe sepsis. > empiric IV Zosyn ordered -0--ED care transferred to DAVID Gaming pending labs, imaging & dispo per results Reevaluation(s) Reevaluation #1: Patient admitted for infected cellulitic wound on left lower quadrant with elevated ESR CRP and elevated lactate. Dr. John accepted Patient for medicine admission. Time: 02:16 Medications Administered Generic Name Dose Route Start Last Admin Trade Name Freq PRN Reason Stop Dose Admin Cefepime HCl 2 gm/ Sodium 50 mls @ 100 mls/hr 06/01/23 02:00 06/01/23 01:56 Chloride IV 100 mls/hr Q12H GIOVANNI Administration Discontinued Medications Generic Name Dose Route Start Last Admin Trade Name Freq PRN Reason Stop Dose Admin Sodium Chloride 1,000 mls @ 999 mls/hr 05/31/23 18:45 05/31/23 19:53 Ns IV 05/31/23 19:45 Infused .Q1H1M GIOVANNI Infusion Piperacillin Sod/Tazobactam 50 mls @ 100 mls/hr 05/31/23 18:46 05/31/23 19:11 Sod 3.375 gm/ Sodium Chloride IV 05/31/23 19:15 Infused ONCE ONE Infusion Iohexol 100 ml 05/31/23 21:00 05/31/23 21:01 Iohexol 350 Mg/Ml 100 Ml Infus..Btl IV 05/31/23 21:01 85 ml ONCE ONE Administration Morphine Sulfate 4 mg 06/01/23 01:08 06/01/23 01:48 Morphine Sulfate 4 Mg/Ml Cartridge IVPUSH 06/01/23 01:09 4 mg ONCE ONE Administration Protocol Medical Decision Making Medical Decision Making [facility] Narrative: 72-year-old female with a past medical history of asthma/COPD overlap syndrome, depression, diabetes, HTN, HLD, hypothyroid, PE, RA, presenting to ED complaining of nonhealing wound with malodorous drainage noted to left lower abdomen x months. On exam vital signs stable, NAD, nontoxic appearing with physical exam as noted above with open draining malodorous wound to the left lower abdomen with induration. No fluctuance. Tender to palpation. Concern for tracking wound/abscess vs ? Fistula. Lower suspicion for cellulitis, colitis/diverticulitis or appendicitis. Plan: Labs including lactic/blood cultures, repeat CT, +/- surgical consult Please refer to course for remaining clinical decision making, interpretation of labs/imaging results, and discussions with consultants and/or family members. Differential Diagnosis Differential Diagnoses: The differential diagnosis associated with the presentation includes As above Admission/Observation Consideration of admission/observation: Escalation of care including admission/observation considered Lab Data [facility] Lab Attestation statement: I reviewed the patient's lab results. 05/31/23 17:56 05/31/23 17:57 Labs: Lab Results 05/31/23 05/31/23 05/31/23 Range/Units 17:56 17:56 17:57 WBC 5.7 (4.8-10.8) X10*3/uL RBC 2.91 L (4.20-5.50) X10*6/uL Hgb 8.6 L (12.0-16.0) g/dl Hct 27.2 L (37.0-47.0) % MCV 93.5 (80.0-98.0) fL MCH 29.6 (27.0-33.0) pg MCHC 31.6 (31.0-35.0) g/dl RDW 18.2 H (11.0-16.0) % Plt Count 198 (160-400) X10*3/uL MPV 10.5 (9.4-12.3) fL Immature Gran % (Auto) 0.3 (0.0-0.4) % Neut % (Auto) 68.6 (45-73) % Lymph % (Auto) 15.3 L (20-40) % [place] % (Auto) 11.0 (2-11) % Eos % (Auto) 3.8 (0-4) % Baso % (Auto) 1.0 (0-2) % Lymph # (Auto) 0.9 L (1.2-4.9) X10*3/uL [place] # (Auto) 0.6 (0.1-1.2) X10*3/uL Eos # (Auto) 0.2 (0.0-0.4) X10*3/uL Baso # (Auto) 0.1 (0.0-0.2) X10*3/uL Abs Immat Gran (auto) 0.02 (0.00-0.03) X10*3/uL Absolute Neuts (auto) 3.9 (2.0-8.3) x10*3/uL Absolute Nucleated RBC 0.000 (0.0-0.012) X10*3/uL Nucleated RBC % (auto) 0.0 (0.0-0.2) /100WBC ESR 73 H (0-20) MM/HR Sodium 134 L (135-145) mmol/L Potassium 4.9 (3.3-5.1) mmol/L Chloride 102 (96-108) mmol/L Carbon Dioxide 23 (22-29) mmol/L Anion Gap 14 (12-20) BUN 38 H (9-16) mg/dL Creatinine 1.44 H (0.5-1.4) mg/dL Estim Creat Clear Calc 41.8 Estimated GFR 36 POC Glucose (60-115) mg/dL Random Glucose 304 H (60-115) mg/dL Lactic Acid (0.5-2.0) mmol/L Lactic Acid F/U @ 2Hr (0.5-2.0) mmol/L Calcium 9.5 (8.4-10.2) mg/dL Total Bilirubin 0.9 (0.0-1.0) mg/dL Direct Bilirubin 0.4 (0.0-0.5) mg/dL AST 60 H (5-31) U/L ALT 29 (0-31) U/L Alkaline Phosphatase 118 H (39-117) U/L C-Reactive Protein 7.20 H (< or = 0.50) mg/dL Total Protein 6.9 (6.5-8.0) g/dL Albumin 2.7 L (3.5-5.0) g/dL COVID-19 (KATHERIN) (Negative) COVID-19 Clin Com 05/31/23 05/31/23 05/31/23 Range/Units 17:57 19:49 19:49 WBC (4.8-10.8) X10*3/uL RBC (4.20-5.50) X10*6/uL Hgb (12.0-16.0) g/dl Hct (37.0-47.0) % MCV (80.0-98.0) fL MCH (27.0-33.0) pg MCHC (31.0-35.0) g/dl RDW (11.0-16.0) % Plt Count (160-400) X10*3/uL MPV (9.4-12.3) fL Immature Gran % (Auto) (0.0-0.4) % Neut % (Auto) (45-73) % Lymph % (Auto) (20-40) % [place] % (Auto) (2-11) % Eos % (Auto) (0-4) % Baso % (Auto) (0-2) % Lymph # (Auto) (1.2-4.9) X10*3/uL [place] # (Auto) (0.1-1.2) X10*3/uL Eos # (Auto) (0.0-0.4) X10*3/uL Baso # (Auto) (0.0-0.2) X10*3/uL Abs Immat Gran (auto) (0.00-0.03) X10*3/uL Absolute Neuts (auto) (2.0-8.3) x10*3/uL Absolute Nucleated RBC (0.0-0.012) X10*3/uL Nucleated RBC % (auto) (0.0-0.2) /100WBC ESR (0-20) MM/HR Sodium 134 L (135-145) mmol/L Potassium 4.8 (3.3-5.1) mmol/L Chloride 104 (96-108) mmol/L Carbon Dioxide 21 L (22-29) mmol/L Anion Gap 14 (12-20) BUN 35 H (9-16) mg/dL Creatinine 1.32 (0.5-1.4) mg/dL Estim Creat Clear Calc 45.6 Estimated GFR 40 POC Glucose (60-115) mg/dL Random Glucose 259 H (60-115) mg/dL Lactic Acid 3.6 H* 2.6 H* (0.5-2.0) mmol/L Lactic Acid F/U @ 2Hr (0.5-2.0) mmol/L Calcium 9.3 (8.4-10.2) mg/dL Total Bilirubin (0.0-1.0) mg/dL Direct Bilirubin (0.0-0.5) mg/dL AST (5-31) U/L ALT (0-31) U/L Alkaline Phosphatase (39-117) U/L C-Reactive Protein (< or = 0.50) mg/dL Total Protein (6.5-8.0) g/dL Albumin (3.5-5.0) g/dL COVID-19 (KATHERIN) (Negative) COVID-19 Clin Com 05/31/23 06/01/23 06/01/23 Range/Units 22:51 00:58 01:09 WBC (4.8-10.8) X10*3/uL RBC (4.20-5.50) X10*6/uL Hgb (12.0-16.0) g/dl Hct (37.0-47.0) % MCV (80.0-98.0) fL MCH (27.0-33.0) pg MCHC (31.0-35.0) g/dl RDW (11.0-16.0) % Plt Count (160-400) X10*3/uL MPV (9.4-12.3) fL Immature Gran % (Auto) (0.0-0.4) % Neut % (Auto) (45-73) % Lymph % (Auto) (20-40) % [place] % (Auto) (2-11) % Eos % (Auto) (0-4) % Baso % (Auto) (0-2) % Lymph # (Auto) (1.2-4.9) X10*3/uL [place] # (Auto) (0.1-1.2) X10*3/uL Eos # (Auto) (0.0-0.4) X10*3/uL Baso # (Auto) (0.0-0.2) X10*3/uL Abs Immat Gran (auto) (0.00-0.03) X10*3/uL Absolute Neuts (auto) (2.0-8.3) x10*3/uL Absolute Nucleated RBC (0.0-0.012) X10*3/uL Nucleated RBC % (auto) (0.0-0.2) /100WBC ESR (0-20) MM/HR Sodium (135-145) mmol/L Potassium (3.3-5.1) mmol/L Chloride (96-108) mmol/L Carbon Dioxide (22-29) mmol/L Anion Gap (12-20) BUN (9-16) mg/dL Creatinine (0.5-1.4) mg/dL Estim Creat Clear Calc Estimated GFR POC Glucose 183 H (60-115) mg/dL Random Glucose (60-115) mg/dL Lactic Acid (0.5-2.0) mmol/L Lactic Acid F/U @ 2Hr 1.7 (0.5-2.0) mmol/L Calcium (8.4-10.2) mg/dL Total Bilirubin (0.0-1.0) mg/dL Direct Bilirubin (0.0-0.5) mg/dL AST (5-31) U/L ALT (0-31) U/L Alkaline Phosphatase (39-117) U/L C-Reactive Protein (< or = 0.50) mg/dL Total Protein (6.5-8.0) g/dL Albumin (3.5-5.0) g/dL COVID-19 (KATHERIN) Negative (Negative) COVID-19 Clin Com See Note Radiology Impression Discussion of test interpretation with radiology: I have reviewed the radiologist's reading. Independent Historian Clinical information obtained from an independent historian. History obtained from or confirmed by: Other (family) External Record Review External record reviewed: Inpatient record, Office record, Outpatient record, Prior outpatient labs, Prior outpatient radiology, Primary care record and Outside ED record Tests considered The following testing was considered but not selected: As above Prescription Management I considered prescription management with: Pain Medication and Antibiotic Chronic Conditions Patient?s care impacted by: Diabetes and Hypertension Discharge Plan Discharge Clinical Impression: Open abdominal wall wound Patient Disposition: Still a Patient
[2023-05-31 18:04] LABS: MANUAL DIFF FLAG NO
[2023-05-31 18:11] LABS: Basophils Absolute Auto 0.1 X10*3/uL (0.0-0.2); Eosinophils Absolute Auto 0.2 X10*3/uL (0.0-0.4); Eosinophils Percent Auto 3.8 % (0-4); Hematocrit 27.2 % (37.0-47.0); Hemoglobin 8.6 g/dl (12.0-16.0); Imm Gran Abs Auto 0.02 X10*3/uL (0.00-0.03); Imm Gran Pct Auto 0.3 % (0.0-0.4); Lymphocytes Absolute Auto 0.9 X10*3/uL (1.2-4.9); Lymphocytes Percent Auto 15.3 % (20-40); Mean Corpuscular HGB Conc 31.6 g/dl (31.0-35.0); Mean Corpuscular Hemoglobin 29.6 pg (27.0-33.0); Mean Corpuscular Volume 93.5 fL (80.0-98.0); Mean Platelet Volume 10.5 fL (9.4-12.3); Monocytes Absolute Auto 0.6 X10*3/uL (0.1-1.2); Neutrophils Absolute Auto 3.9 x10*3/uL (2.0-8.3); Neutrophils Percent Auto 68.6 % (45-73); Platelet Count 198 X10*3/uL (160-400); Red Blood Count 2.91 X10*6/uL (4.20-5.50); Red Cell Distribution Width 18.2 % (11.0-16.0); White Blood Count 5.7 X10*3/uL (4.8-10.8)
[2023-05-31 18:25] LABS: Alanine Aminotransferase 29 U/L (0-31); Albumin Level 2.7 g/dL (3.5-5.0); Alkaline Phosphatase 118 U/L (39-117); Anion Gap 14 (12-20); Aspartate Amino Transferase 60 U/L (5-31); Bilirubin Direct 0.4 mg/dL (0.0-0.5); Bilirubin Total 0.9 mg/dL (0.0-1.0); Blood Urea Nitrogen 38 mg/dL (9-16); Calcium 9.5 mg/dL (8.4-10.2); Carbon Dioxide 23 mmol/L (22-29); Chloride 102 mmol/L (96-108); Creatinine Clr Calc Pharmacy 41.8; Estimated Glomerular Filt Rate 36; Glucose Random 304 mg/dL (60-115); Potassium 4.9 mmol/L (3.3-5.1); Sodium 134 mmol/L (135-145); Total Protein 6.9 g/dL (6.5-8.0)
[2023-05-31] MEDS: 0.9 % Sodium Chloride 1,000 ML 999 ML IV (18:41)
[2023-05-31] MEDS: Piperacillin Sodium/Tazobactam 3.375 GM in 0.9 % Sodium Chloride 50 ML IV (18:57)
--- NOTE | 2023-05-31 19:18 | PC.NURSE ---
pt medicated with 3.375g of zosyn IV pt immediately vomitted following administration, pt was cleaned and changed into clean clothing- NS infusing at this time. pt sts she is not nauseous at this time- DAVID Monae notified via [facility]- no new orders at this time
[2023-05-31 20:00] LABS: Lactic Acid 3.6 mmol/L (0.5-2.0)
[2023-05-31 20:02] LABS: Reflex Lactate? Lactic Acid Added
[2023-05-31 20:28] LABS: Anion Gap 14 (12-20); Blood Urea Nitrogen 35 mg/dL (9-16); Calcium 9.3 mg/dL (8.4-10.2); Carbon Dioxide 21 mmol/L (22-29); Chloride 104 mmol/L (96-108); Creatinine Clr Calc Pharmacy 45.6; Estimated Glomerular Filt Rate 40; Glucose Random 259 mg/dL (60-115); Potassium 4.8 mmol/L (3.3-5.1); Sodium 134 mmol/L (135-145)
[2023-05-31 20:31] LABS: Lactic Acid 2.6 mmol/L (0.5-2.0)
--- NOTE | 2023-05-31 20:31 | PC.NURSE ---
repeat lactic 2.6 PA Dov notified via [employer]
[2023-05-31] MEDS: iohexoL 350 MG/ML 100 ML INFUS..BTL IV (21:01)
[2023-05-31 21:53] LABS: Reflex Lactate? Lactic Acid Added
[2023-05-31 22:43] VITALS: BP 114/43; PULSE 84; RESP 16; TEMP 37.2; O2SAT 96
[2023-05-31 22:56] LABS: Glucose, Whole Blood 183 mg/dL (60-115)
--- NOTE | 2023-05-31 23:02 | PC.NURSE ---
report given to drapery seamstress, pt a&o x4 no further episodes of vomitting since zosyn administration- repeat labs ordered for pt- vss- call diaz within reach report given to Waldo, RN
[2023-05-31 23:47] LABS: Erythrocyte Sedimentation Rate 73 MM/HR (0-20)
[2023-06-01] VITALS (12 sets, daily range): BP systolic 95–133; BP diastolic 39–96; PULSE 82–93; RESP 16–20; TEMP 36.3–36.8; O2SAT 92–98
[2023-06-01 01:14] LABS: ~Lactic Acid-LAB USE ONLY 1.7 mmol/L (0.5-2.0)
[2023-06-01 01:29] LABS: COVID-19 Test Negative (Negative); IDNOW Serial# 08D9AD1C
[2023-06-01] MEDS: Morphine Sulfate 4 MG/ML CARTRIDGE IVPUSH ×2 (01:48→09:32)
[2023-06-01] MEDS: cefEPime HCl 2 GM in 0.9 % Sodium Chloride 50 ML IV ×2 (01:56→13:39)
[2023-06-01 02:36] LABS: B Type Natriuretic Peptide 49 pg/mL (<100)
[2023-06-01] MEDS: vancomycin/NS 2,000 MG/500 ML PLAST..BAG 250 MG IV (02:47)
--- NOTE | 2023-06-01 03:47 | PC.NURSE ---
this rn took over the care of this pt
[2023-06-01 05:40] LABS: Hematocrit 27.1 % (37.0-47.0); Hemoglobin 8.6 g/dl (12.0-16.0); Mean Corpuscular HGB Conc 31.7 g/dl (31.0-35.0); Mean Corpuscular Hemoglobin 29.4 pg (27.0-33.0); Mean Corpuscular Volume 92.5 fL (80.0-98.0); Mean Platelet Volume 10.5 fL (9.4-12.3); Platelet Count 181 X10*3/uL (160-400); Red Blood Count 2.93 X10*6/uL (4.20-5.50); Red Cell Distribution Width 18.2 % (11.0-16.0); White Blood Count 5.7 X10*3/uL (4.8-10.8)
--- NOTE | 2023-06-01 05:49 | PM.IMHP ---
History of Present Illness Date of Service: 06/01/23 Chief Complaint: non-healing wound 72-year-old female past medical history of asthma COPD overlap syndrome, depression, diabetes, HLD, HTN, hypothyroidism, history of pulmonary embolism, comes into the hospital with complaints of nonhealing left lower abdominal quadrant wound. Patient sister at bedtime, they report that this started in February, has been on 3 rounds of p.o. antibiotics with no resolution. It is now draining, tender, painful, and last round of antibiotics with doxy p.o. finished about several days ago sister reports no improvement in the wound. Patient herself reports chronic history of shortness of breath not worsened, no cough, no sputum production, denies any lower extremity edema, no chest pain, no abdominal pain nausea or vomiting, diarrhea constipation, no urinary symptoms On arrival to the ED patient hemodynamically stable Labs are significant for WBC count of 5.7, hemoglobin of 8.6, hematocrit 27.2, scoped her baseline, ESR 73, sodium 134, creatinine of 1.4 which is around her baseline, lactic acid of 3.6, improved after receiving 1 L fluid Abdomen pelvic CT shows 1.4 cm focus of gas within the subcutaneous fat in the left lower quadrant anterior laterally with surrounding fat stranding potentially corresponding to small wound in the region of cellulitis, no drainable fluid collection identified, it does not reach underlying fascial planes, she has small left pleural effusion with dependent atelectasis, hepatic cirrhosis, diverticulosis with no diverticulitis, anasarca Patient received Zosyn which made her vomit, started on IV antibiotics will be admitted for further management Review of Systems Review of Systems: Yes all other systems are reviewed and are negative [facility] Medical History Asthma-COPD overlap syndrome Depression Diabetes mellitus, type 2 Hyperlipidemia Hypertension Hypothyroidism Pulmonary embolism Rheumatoid arthritis Social History Household Members: Family Housing: Apartment Do you presently have visiting nurse or other home services: No Alcohol intake: never Patient Tobacco Use Status: Never used Tobacco Advance Directives: No Advance Directives Information Provided: No service: No Current occupational status: disabled Meds Allergies Allergy/AdvReac Type Severity Reaction Status Date / Time rosuvastatin [From CRESTOR] Allergy Unknown Unknown Verified 04/15/23 14:07 empagliflozin Allergy Unknown Verified 05/31/23 17:17 [From Jardiance] piperacillin [From Zosyn] AdvReac Intermediate Vomiting Verified 05/31/23 19:29 tazobactam [From Zosyn] AdvReac Intermediate Vomiting Verified 05/31/23 19:29 Active Medications: Current Medications Acetaminophen (Acetaminophen 325 Mg Tablet) 650 mg PO Q6H PRN PRN Reason: Pain, Mild (Pain Scale 1-3) Docusate Sodium (Docusate Sodium 100 Mg Capsule) 100 mg PO DAILY PRN PRN Reason: Constipation Cefepime HCl 2 gm/ Sodium (Chloride) 50 mls @ 100 mls/hr IV Q12H [facility] Last Infusion: 06/01/23 02:30 Dose: Infused Morphine Sulfate (Morphine Sulfate 4 Mg/Ml Cartridge) 4 mg IVPUSH Q4H PRN; Protocol PRN Reason: Pain, Severe (Pain Scale 7-10) Ondansetron HCl (Ondansetron Hcl 4 Mg/2 Ml Vial) 4 mg IVPUSH Q8H PRN PRN Reason: Nausea and Vomiting Pharmacy Consult (Consult Rx Vancomycin Dosing) 1 each MISCELLANE DAILY PRN PRN Reason: Consult order Sodium Chloride (0.9 % Sodium Chloride Flush 3 Ml Syringe) [facility] Medications Medication Instructions Recorded Confirmed Last Taken Type albuterol sulfate 2.5 mg/3 mL 2.5 mg inhalation Q4H PRN asthma 01/20/23 02/19/23 Unknown History (0.083 %) solution for nebulization albuterol sulfate 90 mcg/actuation 2 puff inhalation Q4H PRN 01/20/23 02/19/23 01/19/23 History aerosol inhaler Shortness Of Breath Or Wheezing apixaban 5 mg tablet (Eliquis) 5 mg PO BID 01/20/23 06/01/23 01/19/23 History calcium carbonate 600 mg-vitamin 1 tab PO DAILY 01/20/23 02/19/23 01/19/23 History D3 5 mcg (200 unit) tablet citalopram 20 mg tablet 20 mg PO DAILY 01/20/23 06/01/23 01/19/23 History ferrous sulfate 325 mg (65 mg 325 mg PO DAILY 01/20/23 02/19/23 01/19/23 History iron) tablet fluticasone 500 mcg-salmeterol 50 1 ea inhalation BID 01/20/23 02/19/23 01/19/23 History mcg/dose blistr powdr for inhalation (Advair Diskus) insulin aspart U-100 100 unit/mL 40 unit subcut BID 01/20/23 06/01/23 01/19/23 History (3 mL) subcutaneous pen (Novolog FlexPen U-100 Insulin aspart) levothyroxine 50 mcg tablet 50 mcg PO DAILY@0600 01/20/23 06/01/23 02/19/23 History losartan 100 mg tablet 100 mg PO DAILY 01/20/23 02/19/23 01/19/23 History metformin 750 mg tablet,extended 750 mg PO DAILY 01/20/23 02/19/23 01/19/23 History release 24 hr methotrexate (PF) 25 mg/0.5 mL 25 mg subcut RIOS 01/20/23 02/19/23 01/17/23 History subcutaneous auto-injector (Rasuvo (PF)) montelukast 10 mg tablet 10 mg PO BEDTIME 01/20/23 02/19/23 01/19/23 History simvastatin 20 mg tablet 20 mg PO BEDTIME 01/20/23 02/19/23 01/19/23 History furosemide 20 mg tablet 40 mg PO DAILY 06/01/23 06/01/23 Unknown History insulin glargine 100 unit/mL (3 50 unit subcut BID 06/01/23 06/01/23 Unknown History mL) subcutaneous pen (Basaglar KwikPen U-100 Insulin) Physical Exam Vital Signs and Narrative: Vital Signs: Last Vital Signs Temp 97.9 F 06/01/23 04:01 Pulse 93 06/01/23 04:01 Resp 16 06/01/23 04:01 BP 104/43 L 06/01/23 04:01 Pulse Ox 92 06/01/23 04:01 O2 Del Method Room Air 06/01/23 04:01 BMI result Body Mass Index 42.7 Const: General: cooperative and no acute distress Orientation/consciousness: patient oriented x3 Eyes: General: appearance normal, both eyes and all related structures Resp: Effort & Inspection: normal respiratory effort Auscultation: clear to auscultation bilaterally Cardio: Rate: regular rate Rhythm: regular rhythm GI: Palpation (GI): Soft to palpation Auscultation: normal bowel sounds Skin: Other: Small 5 cm lesion in the left lower quadrant abdominal wall draining clear serosanguineous fluid, significantly tender, mild erythema, warm Neuro: General: patient oriented x3 Cognition (Neuro): normal cognition Extrem: General: Yes normal to inspection and Yes no pedal edema Results Labs 06/01/23 05:30 05/31/23 19:49 Labs: Laboratory Results - last 24 hr 05/31/23 05/31/23 05/31/23 17:56 17:56 17:57 MCV 93.5 MCH 29.6 MCHC 31.6 RDW 18.2 H Plt Count 198 MPV 10.5 Immature Gran % (Auto) 0.3 Neut % (Auto) 68.6 Lymph % (Auto) 15.3 L Davison % (Auto) 11.0 Eos % (Auto) 3.8 Baso % (Auto) 1.0 Lymph # (Auto) 0.9 L Davison # (Auto) 0.6 Eos # (Auto) 0.2 Baso # (Auto) 0.1 Abs Immat Gran (auto) 0.02 Absolute Neuts (auto) 3.9 Absolute Nucleated RBC 0.000 Nucleated RBC % (auto) 0.0 ESR 73 H Anion Gap 14 Estim Creat Clear Calc 41.8 Estimated GFR 36 POC Glucose Random Glucose 304 H Lactic Acid Lactic Acid F/U @ 2Hr Calcium 9.5 Total Bilirubin 0.9 Direct Bilirubin 0.4 AST 60 H ALT 29 Alkaline Phosphatase 118 H C-Reactive Protein 7.20 H B-Natriuretic Peptide Total Protein 6.9 Albumin 2.7 L COVID-19 (KATHERIN) COVID-19 Clin Com 05/31/23 05/31/23 05/31/23 17:57 19:49 19:49 MCV MCH MCHC RDW Plt Count MPV Immature Gran % (Auto) Neut % (Auto) Lymph % (Auto) Davison % (Auto) Eos % (Auto) Baso % (Auto) Lymph # (Auto) Davison # (Auto) Eos # (Auto) Baso # (Auto) Abs Immat Gran (auto) Absolute Neuts (auto) Absolute Nucleated RBC Nucleated RBC % (auto) ESR Anion Gap 14 Estim Creat Clear Calc 45.6 Estimated GFR 40 POC Glucose Random Glucose 259 H Lactic Acid 3.6 H* 2.6 H* Lactic Acid F/U @ 2Hr Calcium 9.3 Total Bilirubin Direct Bilirubin AST ALT Alkaline Phosphatase C-Reactive Protein B-Natriuretic Peptide Total Protein Albumin COVID-19 (KATHERIN) COVID-19 Fylet Com 05/31/23 06/01/23 06/01/23 22:51 00:58 01:09 MCV MCH MCHC RDW Plt Count MPV Immature Gran % (Auto) Neut % (Auto) Lymph % (Auto) Davison % (Auto) Eos % (Auto) Baso % (Auto) Lymph # (Auto) Davison # (Auto) Eos # (Auto) Baso # (Auto) Abs Immat Gran (auto) Absolute Neuts (auto) Absolute Nucleated RBC Nucleated RBC % (auto) ESR Anion Gap Estim Creat Clear Calc Estimated GFR POC Glucose 183 H Random Glucose Lactic Acid Lactic Acid F/U @ 2Hr 1.7 Calcium Total Bilirubin Direct Bilirubin AST ALT Alkaline Phosphatase C-Reactive Protein B-Natriuretic Peptide Total Protein Albumin COVID-19 (KATHERIN) Negative COVID-19 Fylet Com See Note 06/01/23 06/01/23 02:11 05:30 MCV 92.5 MCH 29.4 MCHC 31.7 RDW 18.2 H Plt Count 181 MPV 10.5 Immature Gran % (Auto) Neut % (Auto) Lymph % (Auto) Davison % (Auto) Eos % (Auto) Baso % (Auto) Lymph # (Auto) Davison # (Auto) Eos # (Auto) Baso # (Auto) Abs Immat Gran (auto) Absolute Neuts (auto) Absolute Nucleated RBC 0.000 Nucleated RBC % (auto) 0.0 ESR Anion Gap Estim Creat Clear Calc Estimated GFR POC Glucose Random Glucose Lactic Acid Lactic Acid F/U @ 2Hr Calcium Total Bilirubin Direct Bilirubin AST ALT Alkaline Phosphatase C-Reactive Protein B-Natriuretic Peptide 49 Total Protein Albumin COVID-19 (KATHERIN) COVID-19 Clin Com Imaging Radiologist's Impressions: Impressions Abdomen/Pelvis CT 05/31/23 20:59 IMPRESSION: 1. Small 1.4 cm focus of gas within the subcutaneous fat in the left lower quadrant anterolaterally with surrounding fat stranding, potentially corresponding to a small wound in the region of cellulitis. No drainable fluid collections are identified. The collection does not extend beyond the local subcutaneous fat in this region and does not reach the underlying fascial planes. 2. Small left pleural effusion with dependent atelectasis. 3. Hepatic cirrhosis. 4. Mild colonic diverticulosis without evidence of acute diverticulitis. 5. Mild anasarca Fleischner guidelines were followed. Assessment and Plan (1) Open abdominal wall wound: Status: Acute (2) Nonhealing nonsurgical wound: Status: Acute Plan 72-year-old female with past medical history as mentioned above comes into the hospital with nonhealing wound # nonhealing wound - failed outpatient therapy with doxycycline x2 rounds - will treat patient with IV antibiotics - infectious disease consulted - general surgery consult for for possible I&D - follow cultures # lactic acidosis - likely secondary to above - resolved post fluids # diabetes - continue home insulin - will add diabetic diet and low-dose sliding scale insulin # hypertension - continue antihypertensive # hyperlipidemia - continue statin # hypothyroidism - continue Synthroid # history of PE - continue Eliquis DVT prophylaxis: Eliquis Given patient's need for IV antibiotics after failing outpatient p.o. antibiotics patient require minimum 2 nights inpatient hospital stay for further management and monitoring Time Spent With Patient Time: Total time managing care of this patient today ____ minutes. Quality Stroke Does the patient have a stroke diagnosis?: No VTE Prior VTE?: No VTE Risk Level:: Medical - moderate - high VTE Device Contraindication: Treatment Not Indicated VTE Drug Contraindication: N/A - Med Ordered
[2023-06-01 06:07] LABS: Anion Gap 13 (12-20); Blood Urea Nitrogen 32 mg/dL (9-16); Carbon Dioxide 22 mmol/L (22-29); Chloride 105 mmol/L (96-108); Creatinine Clr Calc Pharmacy 48.2; Estimated Glomerular Filt Rate 42; Glucose Random 123 mg/dL (60-115); Potassium 4.3 mmol/L (3.3-5.1); Sodium 136 mmol/L (135-145)
--- NOTE | 2023-06-01 06:37 | PHA.PROG ---
Admission Date/Time: June 01, 2023 01:25 Indication: Skin Weight in k.316 kg Adjusted body weight in K.166 [place] body weight in K.4 Obesity Dosing Indication % IBW: OBESE Serum Creatinine - Last 168 Hours 05/31/23 05/31/23 06/01/23 17:57 19:49 05:30 Creatinine 1.44 H 1.32 1.25 Estimated CrCl and GFR - Last 168 Hours 05/31/23 05/31/23 06/01/23 17:57 19:49 05:30 Estim Creat Clear Calc 41.8 45.6 48.2 Estimated GFR 36 40 42 Vancomycin Loading Dose: 2000 mg x 1 Current Vancomycin Dosing Regimen: 1250 mg Q24H Vancomycin Monitoring using AUC goal of 400 - 600 range with trough as surrogate marker: 426 Date and Time for next Vancomycin Level to be drawn: 06/03 @0600 Pharmacist Comments on Vancomycin Plan: Load was given at @0247, chose to increase the interval for the first dose so that trough can come back at 0600. Vancomycin dosing will take advantage of [employer] as a clinical decision support tool that uses Bayesian modeling to calculate individual patient's pharmacokinetic parameters and forecast the patient's drug concentration time course with the target goal AUC 24 range of 400 - 600 mg/L/hr.
[2023-06-01 07:10] LABS: Glucose, Whole Blood 118 mg/dL (60-115)
[2023-06-01] MEDS: Levothyroxine Sodium 50 MCG TABLET PO (07:18)
[2023-06-01 07:38] LABS: Estimated Average Glucose 131 mg/dL; Hemoglobin A1c % 6.2 % (<6.0)
--- NOTE | 2023-06-01 07:59 | PHA.MEDREC ---
Pharmacy Consult ? Medication Reconciliation Pharmacy has completed the medication reconciliation.
--- NOTE | 2023-06-01 08:30 | PC.NURSE ---
pt axox4, respirations even and unlabored, vss, skin wpd, afebrile. 0.5x05in circular lesion to LLQ abd small amount of serous drainage noted; redness noted surrounding; pain level 8/10. pt medicated per dec. lesion cleaned with sterile water and covered with ABD dressing. insulin lispro held poc 118. pt ate 100%breakfast; linen changed. all needs met at this time; call diaz within reach.
--- NOTE | 2023-06-01 08:42 | PM.CNGS ---
History of Present Illness Consult details Consult date: 06/01/23 Reason for consult: wound care Narrative: The patient is a 72-year-old woman with an extensive past medical history who relates a story of a fall that occurred in December or January of this year. During that fall, she traumatized her panniculus and developed both pain and swelling. The she reports increasing pain and spontaneous drainage months ago and had been referred to [facility] locally but unable to coordinate a visit for reasons that remain unclear to me. While she does have a history of type 2 diabetes, she notes that she never injects under her panniculus in this area. She relates all of the events to the fall that occurred in January. Patient is eating breakfast as she interviewed and denies any significant pain, vomiting, chest pain, difficulty breathing, shortness of breath. She did allow me to examine her in between her meal. Review of Systems Review of Systems: Yes all other systems are reviewed and are negative Constitutional: Constitutional: Reports as per [facility] Past Medical History Medical History (Updated 06/01/23 @ 08:45 by Eduar Larkin MD) Asthma-COPD overlap syndrome Depression Diabetes mellitus, type 2 Hyperlipidemia Hypertension Hypothyroidism Pulmonary embolism Rheumatoid arthritis Social History Social History Household Members: Family Housing: Apartment Do you presently have visiting nurse or other home services: No Alcohol intake: never Patient Tobacco Use Status: Never used Tobacco Advance Directives: No Advance Directives Information Provided: No service: No Current occupational status: disabled Meds Allergies Allergy/AdvReac Type Severity Reaction Status Date / Time rosuvastatin [From CRESTOR] Allergy Unknown Unknown Verified 04/15/23 14:07 empagliflozin Allergy Unknown Verified 05/31/23 17:17 [From Jardiance] piperacillin [From Zosyn] AdvReac Intermediate Vomiting Verified 05/31/23 19:29 tazobactam [From Zosyn] AdvReac Intermediate Vomiting Verified 05/31/23 19:29 Active Medications: Current Medications Acetaminophen (Acetaminophen 325 Mg Tablet) 650 mg PO Q6H PRN PRN Reason: Pain, Mild (Pain Scale 1-3) Apixaban (Apixaban 5 Mg Tablet) 5 mg PO BID GIOVANNI Dextrose (Dextrose 50 % 25 Gm/50 Ml Syringe) 25 gm IVPUSH Q15M PRN; Protocol PRN Reason: per Hypoglycemia Standing Ord. Docusate Sodium (Docusate Sodium 100 Mg Capsule) 100 mg PO DAILY PRN PRN Reason: Constipation Escitalopram Oxalate (Escitalopram Oxalate 10 Mg Tablet) 10 mg PO DAILY GIOVANNI Furosemide (Furosemide 40 Mg Tablet) 40 mg PO DAILY [facility]; Protocol Glucose (Glucose Gel 15 Gm Gel..Gram.) 15 gm PO Q15M PRN; Protocol PRN Reason: per Hypoglycemia Standing Ord. Cefepime HCl 2 gm/ Sodium (Chloride) 50 mls @ 100 mls/hr IV Q12H [facility] Last Infusion: 06/01/23 02:30 Dose: Infused Vancomycin HCl 1,250 mg/ (Sodium Chloride) 250 mls @ 166.667 mls/hr IV Q24H [facility] Insulin Glargine (Insulin Glargine,Hum.Rec.Anlog 100 Unit/Ml 10 Ml Vial) 40 unit SUBCUT BID [facility] Insulin Human Lispro (Insulin Lispro 100 Unit/Ml 3 Ml Vial) 40 unit SUBCUT TIDAC [facility] Insulin Human Lispro (Insulin Lispro 100 Unit/Ml 3 Ml Vial) 0 unit SUBCUT QIDACHS [facility]; Protocol Last Admin: 06/01/23 07:47 Dose: Not Given Levothyroxine Sodium (Levothyroxine Sodium 50 Mcg Tablet) 50 mcg PO DAILY@0630 [facility] Last Admin: 06/01/23 07:18 Dose: 50 mcg Morphine Sulfate (Morphine Sulfate 4 Mg/Ml Cartridge) 4 mg IVPUSH Q4H PRN; Protocol PRN Reason: Pain, Severe (Pain Scale 7-10) Ondansetron HCl (Ondansetron Hcl 4 Mg/2 Ml Vial) 4 mg IVPUSH Q8H PRN PRN Reason: Nausea and Vomiting Pharmacy Consult (Consult Rx Vancomycin Dosing) 1 each MISCELLANE DAILY PRN PRN Reason: Consult order Sodium Chloride (0.9 % Sodium Chloride Flush 3 Ml Syringe) [facility] Home Medications Medication Instructions Recorded Confirmed Last Taken Type albuterol sulfate 2.5 mg/3 mL 2.5 mg inhalation Q4H PRN asthma 01/20/23 06/01/23 Unknown History (0.083 %) solution for nebulization albuterol sulfate 90 mcg/actuation 2 puff inhalation Q4H PRN 01/20/23 06/01/2323 History aerosol inhaler Shortness Of Breath Or Wheezing apixaban 5 mg tablet (Eliquis) 5 mg PO BID 01/20/23 06/01/23 01/19/23 History calcium carbonate 600 mg-vitamin 1 tab PO DAILY 01/20/23 06/01/23 01/19/23 History D3 5 mcg (200 unit) tablet citalopram 20 mg tablet 20 mg PO DAILY 01/20/23 06/01/23 01/19/23 History ferrous sulfate 325 mg (65 mg 325 mg PO DAILY 01/20/23 06/01/23 01/19/23 History iron) tablet fluticasone 500 mcg-salmeterol 50 1 ea inhalation BID 01/20/23 06/01/23 01/19/23 History mcg/dose blistr powdr for inhalation (Advair Diskus) insulin aspart U-100 100 unit/mL 40 unit subcut TIDAC 01/20/23 06/01/23 01/19/23 History (3 mL) subcutaneous pen (Novolog FlexPen U-100 Insulin aspart) levothyroxine 50 mcg tablet 50 mcg PO DAILY@0600 01/20/23 06/01/23 02/19/23 History losartan 100 mg tablet 100 mg PO DAILY 01/20/23 06/01/23 01/19/23 History metformin 750 mg tablet,extended 750 mg PO DAILY 01/20/23 06/01/23 01/19/23 History release 24 hr methotrexate (PF) 25 mg/0.5 mL 25 mg subcut RIOS 01/20/23 06/01/23 01/17/23 History subcutaneous auto-injector (Rasuvo (PF)) montelukast 10 mg tablet 10 mg PO BEDTIME 01/20/23 06/01/23 01/19/23 History simvastatin 20 mg tablet 20 mg PO BEDTIME 01/20/23 06/01/23 01/19/23 History furosemide 20 mg tablet 40 mg PO DAILY 06/01/23 06/01/23 Unknown History insulin glargine 100 unit/mL (3 40 unit subcut BID 06/01/23 06/01/23 Unknown History mL) subcutaneous pen (Basaglar KwikPen U-100 Insulin) Physical Exam Vital Signs: Vital Signs: Last Vital Signs Temp 97.9 F 06/01/23 04:01 Pulse 86 06/01/23 06:18 Resp 20 06/01/23 06:18 BP 109/39 L 06/01/23 06:18 Pulse Ox 95 06/01/23 06:18 O2 Del Method Room Air 06/01/23 06:18 BMI result Body Mass Index 42.7 On exam, the patient is nontoxic and in surprisingly good spirits She is in no acute respiratory distress She is anicteric Her abdomen is obese. Under her left panniculus, there is a non erythematous, 6 mm x 6 mm draining abscess with gross purulence. I and squeezing the area, there is ready drainage with no clinically appreciated residual abscess Results Labs 06/01/23 05:30 06/01/23 05:30 Labs: Abnormal lab results 05/31/23 05/31/23 05/31/23 Range/Units 17:56 17:56 17:57 RBC 2.91 L (4.20-5.50) X10*6/uL Hgb 8.6 L (12.0-16.0) g/dl Hct 27.2 L (37.0-47.0) % RDW 18.2 H (11.0-16.0) % Lymph % (Auto) 15.3 L (20-40) % Lymph # (Auto) 0.9 L (1.2-4.9) X10*3/uL ESR 73 H (0-20) MM/HR Sodium 134 L (135-145) mmol/L Carbon Dioxide (22-29) mmol/L BUN 38 H (9-16) mg/dL Creatinine 1.44 H (0.5-1.4) mg/dL POC Glucose (60-115) mg/dL Random Glucose 304 H (60-115) mg/dL Hemoglobin A1c % (<6.0) % Lactic Acid (0.5-2.0) mmol/L AST 60 H (5-31) U/L Alkaline Phosphatase 118 H (39-117) U/L C-Reactive Protein 7.20 H (< or = 0.50) mg/dL Albumin 2.7 L (3.5-5.0) g/dL Prealbumin (20-40) mg/dL 05/31/23 05/31/23 05/31/23 Range/Units 17:57 19:49 19:49 RBC (4.20-5.50) X10*6/uL Hgb (12.0-16.0) g/dl Hct (37.0-47.0) % RDW (11.0-16.0) % Lymph % (Auto) (20-40) % Lymph # (Auto) (1.2-4.9) X10*3/uL ESR (0-20) MM/HR Sodium 134 L (135-145) mmol/L Carbon Dioxide 21 L (22-29) mmol/L BUN 35 H (9-16) mg/dL Creatinine (0.5-1.4) mg/dL POC Glucose (60-115) mg/dL Random Glucose 259 H (60-115) mg/dL Hemoglobin A1c % (<6.0) % Lactic Acid 3.6 H* 2.6 H* (0.5-2.0) mmol/L AST (5-31) U/L Alkaline Phosphatase (39-117) U/L C-Reactive Protein (< or = 0.50) mg/dL Albumin (3.5-5.0) g/dL Prealbumin (20-40) mg/dL 05/31/23 06/01/23 06/01/23 Range/Units 22:51 05:30 05:30 RBC 2.93 L (4.20-5.50) X10*6/uL Hgb 8.6 L (12.0-16.0) g/dl Hct 27.1 L (37.0-47.0) % RDW 18.2 H (11.0-16.0) % Lymph % (Auto) (20-40) % Lymph # (Auto) (1.2-4.9) X10*3/uL ESR (0-20) MM/HR Sodium (135-145) mmol/L Carbon Dioxide (22-29) mmol/L BUN 32 H (9-16) mg/dL Creatinine (0.5-1.4) mg/dL POC Glucose 183 H (60-115) mg/dL Random Glucose 123 H (60-115) mg/dL Hemoglobin A1c % (<6.0) % Lactic Acid (0.5-2.0) mmol/L AST (5-31) U/L Alkaline Phosphatase (39-117) U/L C-Reactive Protein (< or = 0.50) mg/dL Albumin (3.5-5.0) g/dL Prealbumin (20-40) mg/dL 06/01/23 06/01/23 06/01/23 Range/Units 07:06 07:23 07:23 RBC (4.20-5.50) X10*6/uL Hgb (12.0-16.0) g/dl Hct (37.0-47.0) % RDW (11.0-16.0) % Lymph % (Auto) (20-40) % Lymph # (Auto) (1.2-4.9) X10*3/uL ESR (0-20) MM/HR Sodium (135-145) mmol/L Carbon Dioxide (22-29) mmol/L BUN (9-16) mg/dL Creatinine (0.5-1.4) mg/dL POC Glucose 118 H (60-115) mg/dL Random Glucose (60-115) mg/dL Hemoglobin A1c % 6.2 H (<6.0) % Lactic Acid (0.5-2.0) mmol/L AST (5-31) U/L Alkaline Phosphatase (39-117) U/L C-Reactive Protein (< or = 0.50) mg/dL Albumin (3.5-5.0) g/dL Prealbumin 9.0 L (20-40) mg/dL Short CBC 05/31/23 06/01/23 Range/Units 17:56 05:30 WBC 5.7 5.7 (4.8-10.8) X10*3/uL Hgb 8.6 L 8.6 L (12.0-16.0) g/dl Hct 27.2 L 27.1 L (37.0-47.0) % Plt Count 198 181 (160-400) X10*3/uL BMP 05/31/23 05/31/23 06/01/23 17:57 19:49 05:30 Sodium 134 L 134 L 136 Potassium 4.9 4.8 4.3 Chloride 102 104 105 Carbon Dioxide 23 21 L 22 BUN 38 H 35 H 32 H Creatinine 1.44 H 1.32 1.25 Calcium 9.5 9.3 9.0 Liver Function 05/31/23 Range/Units 17:57 Total Bilirubin 0.9 (0.0-1.0) mg/dL Direct Bilirubin 0.4 (0.0-0.5) mg/dL AST 60 H (5-31) U/L ALT 29 (0-31) U/L Alkaline Phosphatase 118 H (39-117) U/L Albumin 2.7 L (3.5-5.0) g/dL All other labs normal. Imaging Abdomen CT scan report/results: report reviewed and image reviewed CT scan - pelvis: report reviewed and image reviewed Additional studies: Hemoglobin A1c is 6.2 Assessment and Plan (1) Open abdominal wall wound: Status: Acute (2) Acute metabolic encephalopathy: Status: Acute (3) Morbid (severe) obesity due to excess calories: Status: Acute Plan The patient does not have a leukocytosis, redness, fluctuance or tenderness to suggest the chronically draining abdominal wound that is been present since January is the etiology to her lactic acidosis and presentation. There is nothing to surgically drain or address. Patient should be seen in Wound Care to discuss various options. It is unclear to me whether she would benefit from a VAC or another a non operative intervention. Thank you for asking me to participate in her care. Will sign off. Call me with questions. Time Spent With Patient Time: Total time managing care of this patient today ____ minutes. Procedures Date of Service Date of Service: 06/01/23
[2023-06-01] MEDS: Insulin Glargine,Hum.rec.anlog 100 UNIT/ML 10 ML VIAL 40 UNIT SUBCUT ×2 (09:31→20:53)
[2023-06-01] MEDS: Apixaban 5 MG TABLET PO ×2 (09:35→20:53)
[2023-06-01] MEDS: Furosemide 40 MG TABLET PO (09:35)
[2023-06-01] MEDS: Escitalopram Oxalate 10 MG TABLET PO (09:35)
--- NOTE | 2023-06-01 10:29 | PM.EVENT ---
Event Note Date of Service: 06/01/23 Event Note: 72-year-old female with past medical history as mentioned above comes into the hospital with nonhealing wound nonhealing abd wound failed outpatient therapy with doxycycline x2 rounds will treat patient with IV antibiotics infectious disease consulted general surgery consult for for possible I&D follow cultures lactic acidosis Likely secondary to nonhealing wound Trend diabetes Sliding scale, ADA diet hypertension continue antihypertensive hyperlipidemia continue statin hypothyroidism continue Synthroid history of PE continue Eliquis DVT prophylaxis:? Eliquis Given patient's need for IV antibiotics after failing outpatient p.o. antibiotics patient require minimum 2 nights inpatient hospital stay for further management and monitoring Time Spent With Patient Time: Total time managing care of this patient today ____ minutes.
--- NOTE | 2023-06-01 11:41 | PC.NURSE ---
spoke to pt sister with permission of pt; would like to be contacted with surgery consult to pt. pt aware; will notify sister during consult.
--- NOTE | 2023-06-01 11:57 | PC.NURSE ---
verified with provider Michelle MARADIAGA about pt lispro dose 40U + sliding scale; provider confirmed correct dosage.
--- NOTE | 2023-06-01 12:55 | P.CONWO_ITS ---
History of Present Illness Data of Consult Service Date: 06/01/23 Requesting physician: Michelle Rangel Primary Care Provider: MD TRINI Begum Reason for consult: wound left lower quadrant abdominal wall this is a 72-year-old female with an extensive past medical history including diabetes mellitus, Rheumatoid arthritis (treated with methotrexate) and osteoarthritis, COPD, hypertension, depression, hyperlipidemia, hypothyroidism, who presented to the emergency department last night with an approximately 3 month history of left lower quadrant abdominal pain that began after a fall. She does not report any direct injury to her abdominal wall. She does not recall any prior history of similar problems. She does not report fever or chills. A CT scan of the abdomen and pelvis obtained in the emergency department last night demonstrated a small subcutaneous air pocket with surrounding fat stranding and possible association with a small wound of the abdominal wall. Review of Systems Constitutional: Constitutional: Denies chills, Denies fever(s) and Denies poor appetite Cardiovascular: Cardiovascular: Denies chest pain, Denies rapid heart rate, Denies lightheadedness and Denies dyspnea Respiratory: Respiratory: Denies cough and Denies dyspnea Musculoskeletal: Musculoskeletal: Reports arthralgias [facility] Medical History Asthma-COPD overlap syndrome Depression Diabetes mellitus, type 2 Hyperlipidemia Hypertension Hypothyroidism Pulmonary embolism Rheumatoid arthritis Social History Household Members: Family Housing: Apartment Do you presently have visiting nurse or other home services: No Alcohol intake: never Patient Tobacco Use Status: Never used Tobacco Advance Directives: No Advance Directives Information Provided: No service: No Current occupational status: disabled Meds Allergies Allergy/AdvReac Type Severity Reaction Status Date / Time rosuvastatin [From CRESTOR] Allergy Unknown Unknown Verified 04/15/23 14:07 empagliflozin Allergy Unknown Verified 05/31/23 17:17 [From Jardiance] piperacillin [From Zosyn] AdvReac Intermediate Vomiting Verified 05/31/23 19:29 tazobactam [From Zosyn] AdvReac Intermediate Vomiting Verified 05/31/23 19:29 Active Medications: Current Medications Acetaminophen (Acetaminophen 325 Mg Tablet) 650 mg PO Q6H PRN PRN Reason: Pain, Mild (Pain Scale 1-3) Apixaban (Apixaban 5 Mg Tablet) 5 mg PO BID [facility] Last Admin: 06/01/23 09:35 Dose: 5 mg Dextrose (Dextrose 50 % 25 Gm/50 Ml Syringe) 25 gm IVPUSH Q15M PRN; Protocol PRN Reason: per Hypoglycemia Standing Ord. Docusate Sodium (Docusate Sodium 100 Mg Capsule) 100 mg PO DAILY PRN PRN Reason: Constipation Escitalopram Oxalate (Escitalopram Oxalate 10 Mg Tablet) 10 mg PO DAILY [facility] Last Admin: 06/01/23 09:35 Dose: 10 mg Furosemide (Furosemide 40 Mg Tablet) 40 mg PO DAILY [facility]; Protocol Last Admin: 06/01/23 09:35 Dose: 40 mg Glucose (Glucose Gel 15 Gm Gel..Gram.) 15 gm PO Q15M PRN; Protocol PRN Reason: per Hypoglycemia Standing Ord. Cefepime HCl 2 gm/ Sodium (Chloride) 50 mls @ 100 mls/hr IV Q12H [facility] Last Infusion: 06/01/23 02:30 Dose: Infused Vancomycin HCl 1,250 mg/ (Sodium Chloride) 250 mls @ 166.667 mls/hr IV Q24H [facility] Insulin Glargine (Insulin Glargine,Hum.Rec.Anlog 100 Unit/Ml 10 Ml Vial) 40 unit SUBCUT BID [facility] Last Admin: 06/01/23 09:31 Dose: 40 unit Insulin Human Lispro (Insulin Lispro 100 Unit/Ml 3 Ml Vial) 40 unit SUBCUT TIDAC [facility] Insulin Human Lispro (Insulin Lispro 100 Unit/Ml 3 Ml Vial) 0 unit SUBCUT QIDACHS [facility]; Protocol Last Admin: 06/01/23 07:47 Dose: Not Given Levothyroxine Sodium (Levothyroxine Sodium 50 Mcg Tablet) 50 mcg PO DAILY@0630 [facility] Last Admin: 06/01/23 07:18 Dose: 50 mcg Morphine Sulfate (Morphine Sulfate 4 Mg/Ml Cartridge) 4 mg IVPUSH Q4H PRN; Protocol PRN Reason: Pain, Severe (Pain Scale 7-10) Last Admin: 06/01/23 09:32 Dose: 4 mg Ondansetron HCl (Ondansetron Hcl 4 Mg/2 Ml Vial) 4 mg IVPUSH Q8H PRN PRN Reason: Nausea and Vomiting Pharmacy Consult (Consult Rx Vancomycin Dosing) 1 each MISCELLANE DAILY PRN PRN Reason: Consult order Sodium Chloride (0.9 % Sodium Chloride Flush 3 Ml Syringe) 3 ml IVFLUSH QSHIFT [facility] Last Admin: 06/01/23 09:02 Dose: Not Given Home Medications Medication Instructions Recorded Confirmed Last Taken Type albuterol sulfate 2.5 mg/3 mL 2.5 mg inhalation Q4H PRN asthma 01/20/23 06/01/23 Unknown History (0.083 %) solution for nebulization albuterol sulfate 90 mcg/actuation 2 puff inhalation Q4H PRN 01/20/23 06/01/23 01/19/23 History aerosol inhaler Shortness Of Breath Or Wheezing apixaban 5 mg tablet (Eliquis) 5 mg PO BID 01/20/23 06/01/23 01/19/23 History calcium carbonate 600 mg-vitamin 1 tab PO DAILY 01/20/23 06/01/23 01/19/23 History D3 5 mcg (200 unit) tablet citalopram 20 mg tablet 20 mg PO DAILY 01/20/23 06/01/23 01/19/23 History ferrous sulfate 325 mg (65 mg 325 mg PO DAILY 01/20/23 06/01/23 01/19/23 History iron) tablet fluticasone 500 mcg-salmeterol 50 1 ea inhalation BID 01/20/23 06/01/23 01/19/23 History mcg/dose blistr powdr for inhalation (Advair Diskus) insulin aspart U-100 100 unit/mL 40 unit subcut TIDAC 01/20/23 06/01/23 01/19/23 History (3 mL) subcutaneous pen (Novolog FlexPen U-100 Insulin aspart) levothyroxine 50 mcg tablet 50 mcg PO DAILY@0600 01/20/23 06/01/23 02/19/23 History losartan 100 mg tablet 100 mg PO DAILY 01/20/23 06/01/23 01/19/23 History metformin 750 mg tablet,extended 750 mg PO DAILY 01/20/23 06/01/23 01/19/23 History release 24 hr methotrexate (PF) 25 mg/0.5 mL 25 mg subcut RIOS 01/20/23 06/01/23 01/17/23 History subcutaneous auto-injector (Rasuvo (PF)) montelukast 10 mg tablet 10 mg PO BEDTIME 01/20/23 06/01/23 01/19/23 History simvastatin 20 mg tablet 20 mg PO BEDTIME 01/20/23 06/01/23 01/19/23 History furosemide 20 mg tablet 40 mg PO DAILY 06/01/23 06/01/23 Unknown History insulin glargine 100 unit/mL (3 40 unit subcut BID 06/01/23 06/01/23 Unknown History mL) subcutaneous pen (Basaglar KwikPen U-100 Insulin) Physical Exam Vital Signs and Narrative: Vital Signs: Last Vital Signs Temp 97.9 F 06/01/23 11:37 Pulse 82 06/01/23 11:37 Resp 16 06/01/23 11:37 BP 106/45 L 06/01/23 11:46 Pulse Ox 97 06/01/23 11:37 O2 Del Method Room Air 06/01/23 11:37 BMI result Body Mass Index 42.7 Const: General: cooperative, comfortable and no acute distress HEENT: Head: Yes normocephalic and Yes atraumatic GI: Other: soft, nondistended, moderate pannus, approximately 1 cm ovoid opening along the lower abdominal fold left lower quadrant extending into the subcutaneous tissues with moderate induration and tenderness of the surrounding subcutaneous tissues extending for an approximately 3 cm radius without surrounding erythema or ac tive discharge Results Labs 06/01/23 05:30 06/01/23 05:30 Labs: Laboratory Results - last 24 hr 05/31/23 05/31/23 05/31/23 17:56 17:56 17:57 MCV 93.5 MCH 29.6 MCHC 31.6 RDW 18.2 H Plt Count 198 MPV 10.5 Immature Gran % (Auto) 0.3 Neut % (Auto) 68.6 Lymph % (Auto) 15.3 L Nance % (Auto) 11.0 Eos % (Auto) 3.8 Baso % (Auto) 1.0 Lymph # (Auto) 0.9 L Nance # (Auto) 0.6 Eos # (Auto) 0.2 Baso # (Auto) 0.1 Abs Immat Gran (auto) 0.02 Absolute Neuts (auto) 3.9 Absolute Nucleated RBC 0.000 Nucleated RBC % (auto) 0.0 ESR 73 H Anion Gap 14 Estim Creat Clear Calc 41.8 Estimated GFR 36 POC Glucose Random Glucose 304 H Estimat Average Glucose Hemoglobin A1c % Lactic Acid Lactic Acid F/U @ 2Hr Calcium 9.5 Total Bilirubin 0.9 Direct Bilirubin 0.4 AST 60 H ALT 29 Alkaline Phosphatase 118 H C-Reactive Protein 7.20 H B-Natriuretic Peptide Total Protein 6.9 Albumin 2.7 L Prealbumin COVID-19 (KATHERIN) COVID-19 [employer] 05/31/23 05/31/23 05/31/23 17:57 19:49 19:49 MCV MCH MCHC RDW Plt Count MPV Immature Gran % (Auto) Neut % (Auto) Lymph % (Auto) Nance % (Auto) Eos % (Auto) Baso % (Auto) Lymph # (Auto) Nance # (Auto) Eos # (Auto) Baso # (Auto) Abs Immat Gran (auto) Absolute Neuts (auto) Absolute Nucleated RBC Nucleated RBC % (auto) ESR Anion Gap 14 Estim Creat Clear Calc 45.6 Estimated GFR 40 POC Glucose Random Glucose 259 H Estimat Average Glucose Hemoglobin A1c % Lactic Acid 3.6 H* 2.6 H* Lactic Acid F/U @ 2Hr Calcium 9.3 Total Bilirubin Direct Bilirubin AST ALT Alkaline Phosphatase C-Reactive Protein B-Natriuretic Peptide Total Protein Albumin Prealbumin COVID-19 (KATHERIN) [employer] 05/31/23 06/01/23 06/01/23 22:51 00:58 01:09 MCV MCH MCHC RDW Plt Count MPV Immature Gran % (Auto) Neut % (Auto) Lymph % (Auto) Nance % (Auto) Eos % (Auto) Baso % (Auto) Lymph # (Auto) Nance # (Auto) Eos # (Auto) Baso # (Auto) Abs Immat Gran (auto) Absolute Neuts (auto) Absolute Nucleated RBC Nucleated RBC % (auto) ESR Anion Gap Estim Creat Clear Calc Estimated GFR POC Glucose 183 H Random Glucose Estimat Average Glucose Hemoglobin A1c % Lactic Acid Lactic Acid F/U @ 2Hr 1.7 Calcium Total Bilirubin Direct Bilirubin AST ALT Alkaline Phosphatase C-Reactive Protein B-Natriuretic Peptide Total Protein Albumin Prealbumin COVID-19 (KATHERIN) Negative [employer] See Note 06/01/23 06/01/23 06/01/23 02:11 05:30 05:30 MCV 92.5 MCH 29.4 MCHC 31.7 RDW 18.2 H Plt Count 181 MPV 10.5 Immature Gran % (Auto) Neut % (Auto) Lymph % (Auto) Nance % (Auto) Eos % (Auto) Baso % (Auto) Lymph # (Auto) Nance # (Auto) Eos # (Auto) Baso # (Auto) Abs Immat Gran (auto) Absolute Neuts (auto) Absolute Nucleated RBC 0.000 Nucleated RBC % (auto) 0.0 ESR Anion Gap 13 Estim Creat Clear Calc 48.2 Estimated GFR 42 POC Glucose Random Glucose 123 H Estimat Average Glucose Hemoglobin A1c % Lactic Acid Lactic Acid F/U @ 2Hr Calcium 9.0 Total Bilirubin Direct Bilirubin AST ALT Alkaline Phosphatase C-Reactive Protein B-Natriuretic Peptide 49 Total Protein Albumin Prealbumin COVID-19 (KATHERIN) COVID-19 [employer] 06/01/23 06/01/23 06/01/23 07:06 07:23 07:23 MCV MCH MCHC RDW Plt Count MPV Immature Gran % (Auto) Neut % (Auto) Lymph % (Auto) Nance % (Auto) Eos % (Auto) Baso % (Auto) Lymph # (Auto) Nance # (Auto) Eos # (Auto) Baso # (Auto) Abs Immat Gran (auto) Absolute Neuts (auto) Absolute Nucleated RBC Nucleated RBC % (auto) ESR Anion Gap Estim Creat Clear Calc Estimated GFR POC Glucose 118 H Random Glucose Estimat Average Glucose 131 Hemoglobin A1c % 6.2 H Lactic Acid Lactic Acid F/U @ 2Hr Calcium Total Bilirubin Direct Bilirubin AST ALT Alkaline Phosphatase C-Reactive Protein B-Natriuretic Peptide Total Protein Albumin Prealbumin 9.0 L COVID-19 (KATHERIN) COVID-19 Clin Com Imaging Radiologist's Impressions: Impressions Abdomen/Pelvis CT 05/31/23 20:59 IMPRESSION: 1. Small 1.4 cm focus of gas within the subcutaneous fat in the left lower quadrant anterolaterally with surrounding fat stranding, potentially corresponding to a small wound in the region of cellulitis. No drainable fluid collections are identified. The collection does not extend beyond the local subcutaneous fat in this region and does not reach the underlying fascial planes. 2. Small left pleural effusion with dependent atelectasis. 3. Hepatic cirrhosis. 4. Mild colonic diverticulosis without evidence of acute diverticulitis. 5. Mild anasarca Fleischner guidelines were followed. Assessment and Plan (1) Soft tissue abscess: Status: Acute Plan soft tissue abscess of the left lower quadrant abdominal wall the spontaneous drainage. She has moderate induration and inflammatory change in the adjacent soft tissues. On cefepime, vancomycin. Recommend daily wound irrigation and packing. Follow-up in the Wound Clinic. Please call if the Wound Care Service can be of any further assistance during this hospitalization. Time Spent With Patient Time: Total time managing care of this patient today ____ minutes.
[2023-06-01 13:28] LABS: Glucose, Whole Blood 212 mg/dL (60-115)
[2023-06-01 13:28] LABS: Glucose, Whole Blood 211 mg/dL (60-115)
[2023-06-01] MEDS: Insulin Lispro 100 UNIT/ML 3 ML VIAL 40 UNIT SUBCUT ×2 (13:37→18:21)
[2023-06-01] MEDS: Insulin Lispro 100 UNIT/ML 3 ML VIAL SUBCUT ×3 (13:38→20:56)
--- NOTE | 2023-06-01 14:20 | MHC.CM.PN ---
pt liveswith sister and her pt [facility]ce[facility] she has own transport home pt exlains that she is a wait list at [facility] and feels she wouyld benefit from a vna
--- NOTE | 2023-06-01 15:47 | W.PM.IDCN ---
History of Present Illness Data of Consult Service Date: 06/01/23 Requesting physician: Michelle Rangel Primary Care Provider: Aydin Leo MD [facility] Reason for consult: bacteremia,open skin wound lower abdomen LLQ She presents with painful open area skin LLQ for three months. She doesnt inject insulin into area and has had no injuries. She has RA and sees Dr Coughlin in [place]. She has no fever or chills. She has no leukocytosis. She has gram positive marcos bacteremia. She has seen Wound Clinic. Review of Systems Review of Systems: Yes all other systems are reviewed and are negative [facility] Past Medical History Medical History (Updated 06/01/23 @ 15:50 by Deja Reese MD) Asthma-COPD overlap syndrome Bacteremia Depression Diabetes mellitus, type 2 Hyperlipidemia Hypertension Hypothyroidism Pulmonary embolism Rheumatoid arthritis Family History Family history: reviewed and not pertinent Social History Social History Household Members: Family Housing: Apartment Do you presently have visiting nurse or other home services: No Alcohol intake: never Patient Tobacco Use Status: Never used Tobacco Advance Directives: No Advance Directives Information Provided: No service: No Current occupational status: disabled Meds Allergies Allergy/AdvReac Type Severity Reaction Status Date / Time rosuvastatin [From CRESTOR] Allergy Unknown Unknown Verified 04/15/23 14:07 empagliflozin Allergy Unknown Verified 05/31/23 17:17 [From Jardiance] piperacillin [From Zosyn] AdvReac Intermediate Vomiting Verified 05/31/23 19:29 tazobactam [From Zosyn] AdvReac Intermediate Vomiting Verified 05/31/23 19:29 Active Medications: Current Medications Acetaminophen (Acetaminophen 325 Mg Tablet) 650 mg PO Q6H PRN PRN Reason: Pain, Mild (Pain Scale 1-3) Apixaban (Apixaban 5 Mg Tablet) 5 mg PO BID [facility] Last Admin: 06/01/23 09:35 Dose: 5 mg Dextrose (Dextrose 50 % 25 Gm/50 Ml Syringe) 25 gm IVPUSH Q15M PRN; Protocol PRN Reason: per Hypoglycemia Standing Ord. Docusate Sodium (Docusate Sodium 100 Mg Capsule) 100 mg PO DAILY PRN PRN Reason: Constipation Escitalopram Oxalate (Escitalopram Oxalate 10 Mg Tablet) 10 mg PO DAILY [facility] Last Admin: 06/01/23 09:35 Dose: 10 mg Furosemide (Furosemide 40 Mg Tablet) 40 mg PO DAILY [facility]; Protocol Last Admin: 06/01/23 09:35 Dose: 40 mg Glucose (Glucose Gel 15 Gm Gel..Gram.) 15 gm PO Q15M PRN; Protocol PRN Reason: per Hypoglycemia Standing Ord. Cefepime HCl 2 gm/ Sodium (Chloride) 50 mls @ 100 mls/hr IV Q12H [facility] Last Infusion: 06/01/23 14:49 Dose: Infused Vancomycin HCl 1,250 mg/ (Sodium Chloride) 250 mls @ 166.667 mls/hr IV Q24H [facility] Insulin Glargine (Insulin Glargine,Hum.Rec.Anlog 100 Unit/Ml 10 Ml Vial) 40 unit SUBCUT BID [facility] Last Admin: 06/01/23 09:31 Dose: 40 unit Insulin Human Lispro (Insulin Lispro 100 Unit/Ml 3 Ml Vial) 40 unit SUBCUT TIDAC [facility] Last Admin: 06/01/23 13:37 Dose: 40 unit Insulin Human Lispro (Insulin Lispro 100 Unit/Ml 3 Ml Vial) 0 unit SUBCUT QIDACHS [facility]; Protocol Last Admin: 06/01/23 13:38 Dose: 4 unit Levothyroxine Sodium (Levothyroxine Sodium 50 Mcg Tablet) 50 mcg PO DAILY@0630 [facility] Last Admin: 06/01/23 07:18 Dose: 50 mcg Morphine Sulfate (Morphine Sulfate 4 Mg/Ml Cartridge) 4 mg IVPUSH Q4H PRN; Protocol PRN Reason: Pain, Severe (Pain Scale 7-10) Last Admin: 06/01/23 09:32 Dose: 4 mg Ondansetron HCl (Ondansetron Hcl 4 Mg/2 Ml Vial) 4 mg IVPUSH Q8H PRN PRN Reason: Nausea and Vomiting Pharmacy Consult (Consult Rx Vancomycin Dosing) 1 each MISCELLANE DAILY PRN PRN Reason: Consult order Sodium Chloride (0.9 % Sodium Chloride Flush 3 Ml Syringe) 3 ml IVFLUSH QSHIFT [facility] Last Admin: 06/01/23 09:02 Dose: Not Given Home Medications Medication Instructions Recorded Confirmed Last Taken Type albuterol sulfate 2.5 mg/3 mL 2.5 mg inhalation Q4H PRN asthma 01/20/23 06/01/23 Unknown History (0.083 %) solution for nebulization albuterol sulfate 90 mcg/actuation 2 puff inhalation Q4H PRN 01/20/23 06/01/23 01/19/23 History aerosol inhaler Shortness Of Breath Or Wheezing apixaban 5 mg tablet (Eliquis) 5 mg PO BID 01/20/23 06/01/23 01/19/23 History calcium carbonate 600 mg-vitamin 1 tab PO DAILY 01/20/23 06/01/23 01/19/23 History D3 5 mcg (200 unit) tablet citalopram 20 mg tablet 20 mg PO DAILY 01/20/23 06/01/23 01/19/23 History ferrous sulfate 325 mg (65 mg 325 mg PO DAILY 01/20/23 06/01/23 01/19/23 History iron) tablet fluticasone 500 mcg-salmeterol 50 1 ea inhalation BID 01/20/23 06/01/23 01/19/23 History mcg/dose blistr powdr for inhalation (Advair Diskus) insulin aspart U-100 100 unit/mL 40 unit subcut TIDAC 01/20/23 06/01/23 01/19/23 History (3 mL) subcutaneous pen (Novolog FlexPen U-100 Insulin aspart) levothyroxine 50 mcg tablet 50 mcg PO DAILY@0600 01/20/23 06/01/23 02/19/23 History losartan 100 mg tablet 100 mg PO DAILY 01/20/23 06/01/23 01/19/23 History metformin 750 mg tablet,extended 750 mg PO DAILY 01/20/23 06/01/23 01/19/23 History release 24 hr methotrexate (PF) 25 mg/0.5 mL 25 mg subcut RIOS 01/20/23 06/01/23 01/17/23 History subcutaneous auto-injector (Rasuvo (PF)) montelukast 10 mg tablet 10 mg PO BEDTIME 01/20/23 06/01/23 01/19/23 History simvastatin 20 mg tablet 20 mg PO BEDTIME 01/20/23 06/01/23 01/19/23 History furosemide 20 mg tablet 40 mg PO DAILY 06/01/23 06/01/23 Unknown History insulin glargine 100 unit/mL (3 40 unit subcut BID 06/01/23 06/01/23 Unknown History mL) subcutaneous pen (Basaglar KwikPen U-100 Insulin) Physical Exam Vital Signs: Vital Signs: Last Vital Signs Temp 97.9 F 06/01/23 11:37 Pulse 82 06/01/23 11:37 Resp 16 06/01/23 11:37 BP 106/45 L 06/01/23 11:46 Pulse Ox 97 06/01/23 11:37 O2 Del Method Room Air 06/01/23 11:37 BMI result Body Mass Index 42.7 Const: General: cooperative HEENT: Head: Yes normal to inspection Face and sinus: Yes normal facial exam Mouth: Normal oral and palatal mucosa present Teeth and gingiva: dentition normal Eyes: General: appearance normal, both eyes and all related structures Pupils: Equal, round and reactive pupils present Resp: Effort & Inspection: normal respiratory effort Cardio: Rate: regular rate Rhythm: regular rhythm GI: Other: skin horizontal 1 cm LLQ slit with serous drainage no cellulitis Palpation (GI): Soft to palpation and nontender : General: Yes no CVA tenderness Back/Spine/Pelvis: Back: no CVA tenderness Skin: General skin exam: no rashes or lesions noted Neuro: General: moves all extremities Cranial nerves: Yes Equal, round and reactive pupils present Extrem: General: Yes normal to inspection Psych: Appearance: grossly normal Results Labs 06/01/23 05:30 06/01/23 05:30 Labs: Short CBC 05/31/23 06/01/23 Range/Units 17:56 05:30 WBC 5.7 5.7 (4.8-10.8) X10*3/uL Hgb 8.6 L 8.6 L (12.0-16.0) g/dl Hct 27.2 L 27.1 L (37.0-47.0) % Plt Count 198 181 (160-400) X10*3/uL BMP 05/31/23 05/31/23 06/01/23 17:57 19:49 05:30 Sodium 134 L 134 L 136 Potassium 4.9 4.8 4.3 Chloride 102 104 105 Carbon Dioxide 23 21 L 22 BUN 38 H 35 H 32 H Creatinine 1.44 H 1.32 1.25 Calcium 9.5 9.3 9.0 Liver Function 05/31/23 Range/Units 17:57 Total Bilirubin 0.9 (0.0-1.0) mg/dL Direct Bilirubin 0.4 (0.0-0.5) mg/dL AST 60 H (5-31) U/L ALT 29 (0-31) U/L Alkaline Phosphatase 118 H (39-117) U/L Albumin 2.7 L (3.5-5.0) g/dL Microbiology Microbiology Results: Microbiology 05/31/23 17:56 Blood - Subclavian Blood Culture - Preliminary Prelim: GPR Gram Stain only 05/31/23 17:57 Blood - Subclavian Blood Culture - Preliminary Prelim: GPR Gram Stain only Assessment and Plan (1) Bacteremia: Status: Acute She is immunocompromised with RA and on Methotrexate. She has nonhealing wound may be clostridial infection or even wound diptheria or bacteremia may be actinomycosis or coagulase negative bacteremia which would be a contaminant. (2) Nonhealing nonsurgical wound: Status: Acute Plan Piperacillin/tazobactam for now. Await culture blood . Wound Clinic (CT scan doesnt show deep infection or fistula). Time Spent With Patient Time: Total time managing care of this patient today ____ minutes.
[2023-06-01] MEDS: 0.9 % Sodium Chloride Flush 3 ML SYRINGE IVFLUSH (17:08)
--- NOTE | 2023-06-01 17:58 | PC.NURSE ---
attempt to call report to [facility].
[2023-06-01 18:06] LABS: Glucose, Whole Blood 199 mg/dL (60-115)
--- NOTE | 2023-06-01 18:08 | PC.NURSE ---
report given to [facility] monserrat graham.
[2023-06-01 20:46] LABS: Glucose, Whole Blood 182 mg/dL (60-115)
--- NOTE | 2023-06-01 22:13 | PC.NURSE ---
BP 173/80 pulse 78 ,PA Michelle notified,BP will be monitored q 4 HR
[2023-06-02] MEDS: 0.9 % Sodium Chloride Flush 3 ML SYRINGE IVFLUSH ×3 (00:21→20:17)
[2023-06-02] MEDS: cefEPime HCl 2 GM in 0.9 % Sodium Chloride 50 ML IV ×2 (02:02→14:12)
[2023-06-02 03:10] VITALS: BP 124/58; PULSE 88; RESP 17; TEMP 36.1; O2SAT 93
[2023-06-02 05:30] VITALS: BMI 44.8
[2023-06-02] MEDS: Levothyroxine Sodium 50 MCG TABLET PO (06:22)
--- NOTE | 2023-06-02 07:00 | CA_ITS ---
Transthoracic Echocardiogram Patient (Last, First, Middle): Jennifer Duran J Gender: Female Date of : 1950 Age: 72 Procedure Date: 06/02/2023 Procedure Type: Transthoracic Echocardiogram Location: S3E Height: 160.02 cm Weight: 114.76 kg BSA: 2.14 m2 Heart Rate: 96 bpm BP: 121 / 57 mmHg Maintenance Machinist: SB Referring MD: Michelle Rangel NP Symptoms: bacillis bacteremia Study Quality: Adequate w contrast ECG Rhythm: Sinus Conclusions: - The left ventricular systolic function is hyperdynamic. The visually estimated ejection fraction is >70%. - There is moderate mitral annular calcification. - There is mild calcification of the aortic valve. - No obvious vegetations noted, within limits of visualization. Findings Procedure Information Contrast agent, definity, is being given per protocol without apparent complications. Left Ventricle Normal left ventricular cavity size. There is moderately increased left ventricular wall thickness. The left ventricular systolic function is hyperdynamic. The visually estimated ejection fraction is >70%. There is no evidence of regional wall motion abnormalities. Evidence suggests grade I (mild) diastolic dysfunction. Right Ventricle Normal right ventricular cavity size and systolic function. Atria Both atria are normal in size. Aortic Valve There is mild calcification of the aortic valve. There is no aortic valve regurgitation. No significant aortic stenosis. Mitral Valve There is moderate mitral annular calcification. There is trace mitral valve regurgitation. Gradients elevated across the mitral valve; possibly from high stroke volume. Less likely mitral stenosis. Pulmonic Valve The pulmonic valve was not well visualized. Tricuspid Valve There is trace tricuspid valve regurgitation. There is no evidence of pulmonary hypertension. Great Vessels The asc aorta is normal in size. Venous The inferior vena cava was not well visualized. Pericardium/Pleural There is no evidence of pericardial effusion. Prior Study Comparison No prior study available for comparison. Measurements 2D Linear Measurements IVSd: 1.40 0.6-0.9/0.6-1.0 cm LVIDd: 4.20 3.9-5.3/4.2-5.9 cm LVIDd Index: 1.96 2.4-3.2/2.2-3.1 cm/m2 LVIDs: 2.60 2.0-3.6 cm LVPWd: 1.30 0.7-1.1 cm LA Diam: 4.20 2.7-3.8/3.0-4.0 cm LAIDs Index: 1.96 1.5-2.3 cm/m2 LV Mass: 264.60 67-162/88-224 g LV Mass Index: 123.64 43-95/49-115 g/m2 LVOT Diam: 2.10 3.0+(-)1.3 cm 2D Systolic Function EF 4C: 74.60 >55% EF 2C: 84.00 >55% EF BiP: 79.50 >55% Mitral Valve MV VTI: 0.47 MV Pk Cristóbal: 1.85 MV Mn Cristóbal: 1.43 MV Pk Grad: 14.00 MV Mn Grad: 9.00 MV Pk E: 1.45 MV PK A: 1.89 MV Decel Time: 311.00 E/A: 0.80 E'Lateral: 5.87 E/E' Lat: 24.70 PHT: 91.00 MVA PHT: 2.42 MVA Continuity: 2.16 Decel Carver: 4.84 Aortic Valve AoV Pk Cristóbal: 2.46 AoV Mn Cristóbal: 1.69 AoV VTI: 0.45 AoV Pk Grad: 24.00 Aov Mn Grad: 14.00 SHEREEN Cont.VTI: 2.27 LVOT LVOT Pk Cristóbal: 1.46 LVOT Mn Cristóbal: 1.07 LVOT VTI: 0.29 LVOT Pk Grad: 9.00 LVOT Mn Grad: 5.00 LVOT Diam: 2.10 LVOT Area: 3.46 Diastolic Function MV Pk E: 1.45 MV Pk A: 1.89 E/A: 0.80 E' Laterial: 5.87 E/E' Lat: 24.70 Right Ventricle TAPSE (mm): 19.30 TVS' Cristóbal: 10.40 Great Vessels Aorta Sinus of Valsalva: 2.70 2.0-3.5 cm Ao Asc: 2.90 2.1-3.4 cm Pulmonary Veins Pulm Vein S/D 1.80 Pulmonary Valve PV Pk Cristóbal: 1.27 Peak PV Grad: 6.00 Updated in Other Vendor System with Status of Final Lázaro Dominguez MD electronically signed on 06/03/2023 10:40:10 AM with status of Final
[2023-06-02 07:16] LABS: Hemoglobin 9.1 g/dl (12.0-16.0); Mean Corpuscular HGB Conc 31.4 g/dl (31.0-35.0); Mean Corpuscular Hemoglobin 29.4 pg (27.0-33.0); Mean Corpuscular Volume 93.9 fL (80.0-98.0); Mean Platelet Volume 10.8 fL (9.4-12.3); Platelet Count 206 X10*3/uL (160-400); Red Blood Count 3.09 X10*6/uL (4.20-5.50); Red Cell Distribution Width 17.6 % (11.0-16.0); White Blood Count 5.6 X10*3/uL (4.8-10.8)
[2023-06-02 07:38] VITALS: BP 125/58; PULSE 85; RESP 16; TEMP 36.3; O2SAT 93
[2023-06-02 07:44] LABS: Anion Gap 13 (12-20); Blood Urea Nitrogen 43 mg/dL (9-16); Calcium 9.5 mg/dL (8.4-10.2); Carbon Dioxide 23 mmol/L (22-29); Chloride 103 mmol/L (96-108); Creatinine Clr Calc Pharmacy 43.4; Estimated Glomerular Filt Rate 36; Glucose Random 139 mg/dL (60-115); Potassium 4.7 mmol/L (3.3-5.1); Sodium 134 mmol/L (135-145)
[2023-06-02 07:49] LABS: Glucose, Whole Blood 146 mg/dL (60-115)
[2023-06-02] MEDS: Insulin Lispro 100 UNIT/ML 3 ML VIAL 40 UNIT SUBCUT ×3 (08:12→16:50)
[2023-06-02] MEDS: vancomycin HCL 1,250 MG in 0.9 % Sodium Chloride 250 ML 166.67 MG IV (08:12)
[2023-06-02] MEDS: Apixaban 5 MG TABLET PO ×2 (08:13→20:13)
[2023-06-02] MEDS: Escitalopram Oxalate 10 MG TABLET PO (08:13)
[2023-06-02] MEDS: Furosemide 40 MG TABLET PO (08:13)
[2023-06-02] MEDS: Insulin Glargine,Hum.rec.anlog 100 UNIT/ML 10 ML VIAL 40 UNIT SUBCUT ×2 (08:13→20:14)
--- NOTE | 2023-06-02 08:55 | P.PNIM_ITS ---
Subjective Subjective Date of Service: 06/02/23 Review of Systems Follow-up abdominal wound, bacteremia Denies pain, nausea, vomiting, diarrhea Physical Exam Vital Signs: Vital Signs: Last Vital Signs Temp 97.4 F 06/02/23 07:38 Pulse 85 06/02/23 07:38 Resp 16 06/02/23 07:38 BP 125/58 L 06/02/23 07:38 Pulse Ox 93 06/02/23 07:38 O2 Del Method Room Air 06/02/23 07:38 BMI result Body Mass Index 44.8 Appearing in no acute distress lung sounds are clear to auscultation heart regular rate rhythm, clear S1, S2 positive bowel sounds, abdomen is soft, nontender neuro patient is alert x3, no focal deficits Small open abdominal wound with clear drainage, no odor, mildly pink surrounding skin without infection Objective Data Active Medications Acetaminophen (Acetaminophen 325 Mg Tablet) 650 mg PO Q6H PRN PRN Reason: Pain, Mild (Pain Scale 1-3) Apixaban (Apixaban 5 Mg Tablet) 5 mg PO BID [facility] Last Admin: 06/02/23 08:13 Dose: 5 mg Documented By: SCOOBY Dextrose (Dextrose 50 % 25 Gm/50 Ml Syringe) 25 gm IVPUSH Q15M PRN; Protocol PRN Reason: per Hypoglycemia Standing Ord. Docusate Sodium (Docusate Sodium 100 Mg Capsule) 100 mg PO DAILY PRN PRN Reason: Constipation Escitalopram Oxalate (Escitalopram Oxalate 10 Mg Tablet) 10 mg PO DAILY [facility] Last Admin: 06/02/23 08:13 Dose: 10 mg Documented By: SCOOBY Furosemide (Furosemide 40 Mg Tablet) 40 mg PO DAILY [facility]; Protocol Last Admin: 06/02/23 08:13 Dose: 40 mg Documented By: SCOOBY Glucose (Glucose Gel 15 Gm Gel..Gram.) 15 gm PO Q15M PRN; Protocol PRN Reason: per Hypoglycemia Standing Ord. Cefepime HCl 2 gm/ Sodium (Chloride) 50 mls @ 100 mls/hr IV Q12H [facility] Last Infusion: 06/02/23 02:32 Dose: 0 mls/hr Documented By: ANGELICA Vancomycin HCl 1,250 mg/ (Sodium Chloride) 250 mls @ 166.667 mls/hr IV Q24H [facility] Last Admin: 06/02/23 08:12 Dose: 166.67 mls/hr Documented By: SCOOBY Insulin Glargine (Insulin Glargine,Hum.Rec.Anlog 100 Unit/Ml 10 Ml Vial) 40 unit SUBCUT BID [facility] Last Admin: 06/02/23 08:13 Dose: 40 unit Documented By: SCOOBY Insulin Human Lispro (Insulin Lispro 100 Unit/Ml 3 Ml Vial) 40 unit SUBCUT TIDAC [facility] Last Admin: 06/02/23 08:12 Dose: 40 unit Documented By: SCOOBY Insulin Human Lispro (Insulin Lispro 100 Unit/Ml 3 Ml Vial) 0 unit SUBCUT QIDACHS [facility]; Protocol Last Admin: 06/02/23 08:14 Dose: Not Given Documented By: SCOOBY Non-Admin Reason: No Insulin Coverage Levothyroxine Sodium (Levothyroxine Sodium 50 Mcg Tablet) 50 mcg PO DAILY@0630 [facility] Last Admin: 06/02/23 06:22 Dose: 50 mcg Documented By: ANGELICA Morphine Sulfate (Morphine Sulfate 4 Mg/Ml Cartridge) 4 mg IVPUSH Q4H PRN; Protocol PRN Reason: Pain, Severe (Pain Scale 7-10) Last Admin: 06/01/23 09:32 Dose: 4 mg Documented By: JACKY Ondansetron HCl (Ondansetron Hcl 4 Mg/2 Ml Vial) 4 mg IVPUSH Q8H PRN PRN Reason: Nausea and Vomiting Pharmacy Consult (Consult Rx Vancomycin Dosing) 1 each MISCELLANE DAILY PRN PRN Reason: Consult order Sodium Chloride (0.9 % Sodium Chloride Flush 3 Ml Syringe) 3 ml IVFLUSH QSHIFT [facility] Last Admin: 06/02/23 08:14 Dose: 3 ml Documented By: SCOOBY Labs 06/02/23 05:53 06/02/23 05:53 Labs: Laboratory Results - last 24 hr 06/01/23 06/01/23 06/01/23 11:29 13:18 18:00 MCV MCH MCHC RDW Plt Count MPV Absolute Nucleated RBC Nucleated RBC % (auto) Anion Gap Estim Creat Clear Calc Estimated GFR POC Glucose 211 H 212 H 199 H Random Glucose Calcium 06/01/23 06/02/23 06/02/23 20:42 05:53 05:53 MCV 93.9 MCH 29.4 MCHC 31.4 RDW 17.6 H Plt Count 206 MPV 10.8 Absolute Nucleated RBC 0.000 Nucleated RBC % (auto) 0.0 Anion Gap Estim Creat Clear Calc Cancelled Estimated GFR Cancelled POC Glucose 182 H Random Glucose Calcium 06/02/23 06/02/23 05:53 07:46 MCV MCH MCHC RDW Plt Count MPV Absolute Nucleated RBC Nucleated RBC % (auto) Anion Gap 13 Estim Creat Clear Calc 43.4 Estimated GFR 36 POC Glucose 146 H Random Glucose 139 H Calcium 9.5 Microbiology Microbiology Results: Microbiology 06/01/23 06:29 Blood Culture - Preliminary Blood - Venous No growth after 24 hours. 06/01/23 06:29 Blood Culture - Preliminary Blood - Venous No growth after 24 hours. 05/31/23 17:56 Blood Culture - Preliminary Blood - Subclavian Prelim: GPR Gram Stain only 05/31/23 17:57 Blood Culture - Preliminary Blood - Subclavian Prelim: GPR Gram Stain only Assessment and Plan (1) Bacteremia: Status: Acute Plan 72-year-old female with past medical history as mentioned above comes into the hospital with nonhealing wound GPR bacteremia, bacillus species 2/2 No fever, chills, normal white blood cell count Infectious Disease following Continue vanco and cefepime for now nonhealing abd wound failed outpatient therapy with doxycycline x2 rounds Seen evaluated by Infectious Disease> no need for antibiotics Seen and evaluated by General surgery> no need for debridement or surgical intervention as wound is draining on its own Irrigate wound with normal saline daily, Pack wound with iodoform dressing and cover with ABD, will need wound care clinic follow-up outpatient lactic acidosis Likely secondary to nonhealing wound Resolved diabetes mellitus type 2 Sliding scale, ADA diet, Lantus 40 units b.i.d., Humalog 40 units t.i.d. hypertension continue antihypertensive hyperlipidemia continue statin hypothyroidism continue Synthroid history of PE continue Eliquavel DVT prophylaxis:? Georges Attending Dr. Goyal Full code Continue hospitalization for bacteremia, pending final cultures Time Spent With Patient Time: Total time managing care of this patient today ____ minutes. Quality Stroke Does the patient have a stroke diagnosis?: No VTE Prior VTE?: No VTE Risk Level:: Medical - moderate - high VTE Device Contraindication: Treatment Not Indicated VTE Drug Contraindication: N/A - Med Ordered
[2023-06-02] MEDS: Spironolactone 25 MG TABLET 50 MG PO (10:54)
[2023-06-02] MEDS: Fluticasone/Vilanterol 200/25 BLST.W.DEV 1 PUFF INHALE (10:54)
[2023-06-02] MEDS: Ferrous Sulfate 324 MG TABLET.DR PO (10:54)
[2023-06-02 11:26] LABS: Glucose, Whole Blood 214 mg/dL (60-115)
[2023-06-02 11:30] VITALS: BP 121/57; PULSE 90; RESP 16; TEMP 36.2; O2SAT 94
[2023-06-02] MEDS: Insulin Lispro 100 UNIT/ML 3 ML VIAL SUBCUT ×2 (12:33→16:50)
--- NOTE | 2023-06-02 13:29 | P.CDIM_ITS ---
PROVIDER RESPONSE TEXT: To clarify, the appropriate diagnosis supported by the clinical indicators: Severe or Morbid Obesity QUERY TEXT: PHYSICIAN'S DOCUMENTATION REQUEST Date of Query: 06/01/2023 01:15 PM EDT Patient Name: Jennifer Duran Admit Date: 06/01/2023 Dear Michelle Rangel, A review of the medical record indicates additional documentation may be needed. Please review below and update the documentation accordingly. Clinical Indicators: Height: ( ) 5'3 Weight: ( ) 109.316 kg BMI: ( ) 42.7 If possible, please provide an associated diagnosis related to the abnormal BMI, such as: Overweight Obesity Due to excess calories Obesity Drug induced Obesity Due to other cause Specify the other cause Severe or Morbid Obesity BMI is not significant Other (explain)Clinically unable to determine (explain)Thank you, Lady Cosby RN Use of terms such as suspected, likely, concern for, or probable (associated with a specific diagnosi s that is being evaluated, monitored, or treated as if it exists) are acceptable and can be coded in the inpatient se tting, when documented at the time of discharge. Please use your independent medical judgment in providing your response. THIS QUERY IS PART OF THE PERMANENT MEDICAL RECORD
--- NOTE | 2023-06-02 13:29 | P.CDIM_ITS ---
PROVIDER RESPONSE TEXT: To clarify, the appropriate diagnosis supported by the clinical indicators: Acute QUERY TEXT: PHYSICIAN'S DOCUMENTATION REQUEST Date of Query: 06/01/2023 01:10 PM EDT Patient Name: Jennifer Duran Admit Date: 06/01/2023 Dear Michelle Rangel, A review of the medical record indicates additional documentation may be needed. Please review below and update the documentation accordingly. Clinical Indicators: Per Hospitalist Progress Note 06/01/23: lactic acidosis Likely secondary to nonhealing wound Trend treated with IVF LA on 05/31/23: 2.6 LA on 06/01/23: 1.7 Clarify which of the following accurately represents the acuity of the (insert diagnosis). Possible options might include: Acute Acute on chronic Compensated Chronic stable condition Remission Other (explain)Clinically unable to determine (explain)Thank you, Lady Cosby RN Use of terms such as suspected, likely, concern for, or probable (associated with a specific diagnosi s that is being evaluated, monitored, or treated as if it exists) are acceptable and can be coded in the inpatient se tting, when documented at the time of discharge. Please use your independent medical judgment in providing your response. THIS QUERY IS PART OF THE PERMANENT MEDICAL RECORD
[2023-06-02] MEDS: Morphine Sulfate 4 MG/ML CARTRIDGE IVPUSH (14:42)
[2023-06-02 15:35] VITALS: BP 140/63; PULSE 95; RESP 17; TEMP 36.2; O2SAT 96
--- NOTE | 2023-06-02 16:00 | P.PNID_ITS ---
Subjective Subjective Date of Service: 06/02/23 Critical Care Time (minutes): 15 Comment: she feels better,wound still oozing Objective Data Labs 06/02/23 05:53 06/02/23 05:53 Labs: Laboratory Results - last 24 hr 06/01/23 06/01/23 06/02/23 18:00 20:42 05:53 WBC RBC Hgb Hct MCV MCH MCHC RDW Plt Count MPV Absolute Nucleated RBC Nucleated RBC % (auto) Sodium Potassium Chloride Carbon Dioxide Anion Gap BUN Creatinine Cancelled Estim Creat Clear Calc Cancelled Estimated GFR Cancelled POC Glucose 199 H 182 H Random Glucose Calcium 06/02/23 06/02/23 06/02/23 05:53 05:53 07:46 WBC 5.6 RBC 3.09 L Hgb 9.1 L Hct 29.0 L MCV 93.9 MCH 29.4 MCHC 31.4 RDW 17.6 H Plt Count 206 MPV 10.8 Absolute Nucleated RBC 0.000 Nucleated RBC % (auto) 0.0 Sodium 134 L Potassium 4.7 Chloride 103 Carbon Dioxide 23 Anion Gap 13 BUN 43 H Creatinine 1.43 H Estim Creat Clear Calc 43.4 Estimated GFR 36 POC Glucose 146 H Random Glucose 139 H Calcium 9.5 06/02/23 11:22 WBC RBC Hgb Hct MCV MCH MCHC RDW Plt Count MPV Absolute Nucleated RBC Nucleated RBC % (auto) Sodium Potassium Chloride Carbon Dioxide Anion Gap BUN Creatinine Estim Creat Clear Calc Estimated GFR POC Glucose 214 H Random Glucose Calcium Microbiology Microbiology Results: Microbiology 05/31/23 17:57 Blood - Subclavian Blood Culture - Preliminary Bacillus species 05/31/23 17:56 Blood - Subclavian Blood Culture - Preliminary Bacillus species 06/01/23 06:29 Blood - Venous Blood Culture - Preliminary No growth after 24 hours. 06/01/23 06:29 Blood - Venous Blood Culture - Preliminary No growth after 24 hours. Physical Exam 2 Vital Signs: Vital Signs: Last Vital Signs Temp 97.1 F 06/02/23 15:35 Pulse 95 06/02/23 15:35 Resp 17 06/02/23 15:35 BP 140/63 H 06/02/23 15:35 Pulse Ox 96 06/02/23 15:35 O2 Del Method Room Air 06/02/23 15:35 BMI result Body Mass Index 44.8 Const: General: cooperative Eyes: General: appearance normal, both eyes and all related structures Resp: Effort & Inspection: normal respiratory effort Cardio: Rate: regular rate Rhythm: regular rhythm GI: Other: soft,some oozing LLQ serous open area Assessment and Plan Assessment and plan (1) Bacteremia: Problem details: She has likely open abdominal area giving entrance to bacillus bacteremia. There is no local cellulitis or other metastatic sites seen. Status: Acute Assessment and Plan: Would continue Vancomycin for four weeks with weekly creatinine and trough and CBC Also would check echo evaluate endocarditis. Wound Clinic outpatient help with healing. Time Spent With Patient Time: Total time managing care of this patient today ____ minutes.
--- NOTE | 2023-06-02 16:06 | MHC.CM.PN ---
Per MD rounds today Patient will need VNA for wound care and assessment. She will follow up with the Wound Clinic. DP Home with VNA+ Wound clinic referral. She will arrange for transport home.
[2023-06-02 16:41] LABS: Glucose, Whole Blood 188 mg/dL (60-115)
[2023-06-02 19:21] LABS: Glucose, Whole Blood 147 mg/dL (60-115)
[2023-06-02 19:22] VITALS: BP 117/55; PULSE 90; RESP 17; TEMP 36.3; O2SAT 94
[2023-06-02] MEDS: Montelukast Sodium 10 MG TABLET PO (20:13)
[2023-06-02] MEDS: Docusate Sodium 100 MG CAPSULE PO (20:13)
[2023-06-02] MEDS: Atorvastatin Calcium 10 MG TABLET PO (20:13)
[2023-06-02 23:54] VITALS: BP 129/61; PULSE 89; RESP 17; TEMP 36.2; O2SAT 96
[2023-06-03] VITALS (8 sets, daily range): BP systolic 108–150; BP diastolic 52–67; PULSE 79–89; RESP 16–20; TEMP 36–36.6; O2SAT 93–97
[2023-06-03] MEDS: cefEPime HCl 2 GM in 0.9 % Sodium Chloride 50 ML IV ×2 (00:34→14:52)
[2023-06-03] MEDS: Levothyroxine Sodium 50 MCG TABLET PO (06:20)
[2023-06-03 06:45] LABS: Estimated Glomerular Filt Rate 33; Vancomycin Random 16.5 mcg/mL (15-20)
--- NOTE | 2023-06-03 07:06 | HE.PHANOTE ---
RE VANCOMYCIN IN SETTING OF RENAL FUNCTION/CREATININE INCREASE, LOWERING DOSE TO 1 GRAM Q24H. SUSPECTED AUC 548. TROUGH 17.4. NEXT LEVEL DUE 06/05 @0600 MIGUEL
[2023-06-03 07:24] LABS: Glucose, Whole Blood 126 mg/dL (60-115)
[2023-06-03] MEDS: vancomycin HCL 1,000 MG in 0.9 % Sodium Chloride 250 ML 270 MG IV (07:48)
[2023-06-03] MEDS: Spironolactone 25 MG TABLET 50 MG PO (07:49)
[2023-06-03] MEDS: Ferrous Sulfate 324 MG TABLET.DR PO (07:49)
[2023-06-03] MEDS: Escitalopram Oxalate 10 MG TABLET PO (07:49)
[2023-06-03] MEDS: Calcium + Vitamin D 250 MG TABLET PO (07:49)
[2023-06-03] MEDS: Furosemide 40 MG TABLET PO (07:49)
[2023-06-03] MEDS: Apixaban 5 MG TABLET PO ×2 (07:49→20:24)
[2023-06-03] MEDS: Insulin Lispro 100 UNIT/ML 3 ML VIAL 40 UNIT SUBCUT ×3 (07:50→17:14)
[2023-06-03] MEDS: 0.9 % Sodium Chloride Flush 3 ML SYRINGE IVFLUSH ×3 (07:50→20:28)
[2023-06-03] MEDS: Insulin Glargine,Hum.rec.anlog 100 UNIT/ML 10 ML VIAL 40 UNIT SUBCUT ×2 (07:57→20:24)
[2023-06-03] MEDS: Losartan Potassium 50 MG TABLET 100 MG PO (07:57)
[2023-06-03] MEDS: Fluticasone/Vilanterol 200/25 BLST.W.DEV 1 PUFF INHALE (08:14)
[2023-06-03 11:26] LABS: Glucose, Whole Blood 242 mg/dL (60-115)
[2023-06-03] MEDS: Insulin Lispro 100 UNIT/ML 3 ML VIAL SUBCUT ×2 (11:42→17:14)
--- NOTE | 2023-06-03 13:01 | MHC.CM.PN ---
Addendum entered by Claudia Galvan 06/03/23 16:23: [facility] HAS OFFICIALLY OFFERED A BED PENDING PICC REPORT CM WILL FOLLOW UP TOMORROW MORNING Addendum entered by Claudia Galvan 06/03/23 15:28: PT REPORTS [facility] IS HER PREFERRED SNF UPDATES SENT TO [facility] INCLUDING [facility] TOMORROW AWAITING RESPONSE [facility] IS PROVIDING A DEFINITE BED OFFER AND A PRIVATE ROOM PT WOULD LIKE TO SEE WHAT [facility] SAYS Addendum entered by Claudia Galvan 06/03/23 15:07: CM MET WITH PT AGAIN TO REVIEW BED OFFERS PT ATTEMPTED TO CALL HER SISTER TO PARTICIPATE, HOWEVER CALL WENT TO PT/CM LEFT VM FOR SISTER WITH A LIST OF SNFS OFFERING [facility] IS OFFERING [facility] ARE INTERESTED ALL 3 FACILITIES HAVE STATED PT WILL NEED HER HOME MED, METHOTREXATE, TO BE BROUGHT IN AWAITING RETURN CALL FROM PTS SISTER Original Note: CM MET WITH PT TO DISCUSS DC PLANNING AT PTS REQUEST, HER SISTER WAS ON SPEAKER PHONE AND PARTICIPATED IN DISCUSSION THEY ARE BOTH AWARE PT WILL NEED WOUND CARE AND IV ABX AT DC THEY BOTH REPORT BEING UNSURE IF THEY WOULD PREFER PT GO TO STR PTS SISTER REPORTS CONCERN WITH FACILITY CHOICES AND PT GETTING AN INFECTION WHILE AT A SNF PER DISCUSSION, REFERRALS WILL BE MADE TO DETERMINE POSSIBLE BED OFFERS CM WILL MEET WITH PT AND SISTER ONCE RESPONSES ARE RECEIVED
[2023-06-03] MEDS: Morphine Sulfate 4 MG/ML CARTRIDGE IVPUSH ×2 (15:25→20:31)
--- NOTE | 2023-06-03 15:58 | HO.PM.IMPN ---
Subjective Subjective Date of Service: 06/03/23 Interval History: seen and examined this morning follow up for abdominal wall wound no overnight events no fever, chills Review of Systems Review of Systems: Yes all other systems are reviewed and are negative Constitutional Constitutional: Denies chills and Denies fever(s) Cardiovascular Cardiovascular: Denies chest pain Gastrointestinal Gastrointestinal: Denies abdominal pain Physical Exam Vital Signs: Vital Signs: Last Vital Signs Temp 96.8 F 06/03/23 15:31 Pulse 89 06/03/23 15:31 Resp 18 06/03/23 15:31 BP 139/56 L 06/03/23 15:31 Pulse Ox 96 06/03/23 15:31 O2 Del Method Room Air 06/03/23 15:31 BMI result Body Mass Index 44.8 Const: General: cooperative, comfortable, no acute distress, alert and awake Nutritional Appearance: obese Orientation/consciousness: patient oriented x3 Resp: Effort & Inspection: normal respiratory effort, no respiratory distress and no use of accessory muscles Cardio: Rate: regular rate GI: Other: small open wound with packing present left lower quadrant with no surrounding erythema Inspection: No distended Palpation (GI): Soft to palpation and nontender Skin: Other: warm,dry Neuro: Other: grossly nonfocal General: patient oriented x3 Extrem: General: Yes no pedal edema Objective Data Active Medications Acetaminophen (Acetaminophen 325 Mg Tablet) 650 mg PO Q6H PRN PRN Reason: Pain, Mild (Pain Scale 1-3) Albuterol Sulfate (Albuterol Sulfate (0.083%) 2.5 Mg/3 Ml Vial.Neb) 2.5 mg INHALE Q4H PRN PRN Reason: asthma Albuterol Sulfate (Albuterol Sulfate 90 Mcg 8 Gm Inhaler) 2 puff INHALE Q4H PRN PRN Reason: Shortness Of Breath Or Wheezing Apixaban (Apixaban 5 Mg Tablet) 5 mg PO BID COUNTS INCLUDE 234 BEDS AT THE [facility] Last Admin: 06/03/23 07:49 Dose: 5 mg Documented By: KATHERINE Atorvastatin Calcium (Atorvastatin Calcium 10 Mg Tablet) 10 mg PO BEDTIME COUNTS INCLUDE 234 BEDS AT THE [facility] Last Admin: 06/02/23 20:13 Dose: 10 mg Documented By: HERB Calcium Carbonate/Cholecalciferol (Calcium + Vitamin D 250 Mg Tablet) 250 mg PO DAILY COUNTS INCLUDE 234 BEDS AT THE [facility] Last Admin: 06/03/23 07:49 Dose: 250 mg Documented By: KATHERINE Dextrose (Dextrose 50 % 25 Gm/50 Ml Syringe) 25 gm IVPUSH Q15M PRN; Protocol PRN Reason: per Hypoglycemia Standing Ord. Docusate Sodium (Docusate Sodium 100 Mg Capsule) 100 mg PO DAILY PRN PRN Reason: Constipation Last Admin: 06/02/23 20:13 Dose: 100 mg Documented By: HERB Escitalopram Oxalate (Escitalopram Oxalate 10 Mg Tablet) 10 mg PO DAILY COUNTS INCLUDE 234 BEDS AT THE [facility] Last Admin: 06/03/23 07:49 Dose: 10 mg Documented By: KATHERINE Ferrous Sulfate (Ferrous Sulfate 324 Mg Tablet.Dr) 324 mg PO DAILY COUNTS INCLUDE 234 BEDS AT THE [facility] Last Admin: 06/03/23 07:49 Dose: 324 mg Documented By: KATHERINE Fluticasone/Vilanterol (Fluticasone/Vilanterol 200/25 Blst.W.Dev) 1 puff INHALE RDAILY COUNTS INCLUDE 234 BEDS AT THE [facility] Last Admin: 06/03/23 08:14 Dose: 1 puff Documented By: TERESITA Furosemide (Furosemide 40 Mg Tablet) 40 mg PO DAILY COUNTS INCLUDE 234 BEDS AT THE [facility]; Protocol Last Admin: 06/03/23 07:49 Dose: 40 mg Documented By: KATHERINE Glucose (Glucose Gel 15 Gm Gel..Gram.) 15 gm PO Q15M PRN; Protocol PRN Reason: per Hypoglycemia Standing Ord. Cefepime HCl 2 gm/ Sodium (Chloride) 50 mls @ 100 mls/hr IV Q12H COUNTS INCLUDE 234 BEDS AT THE [facility] Last Infusion: 06/03/23 15:23 Dose: 0 mls/hr Documented By: KATHERINE Vancomycin HCl 1,000 mg/ (Sodium Chloride) 270 mls @ 270 mls/hr IV Q24H COUNTS INCLUDE 234 BEDS AT THE [facility] Last Infusion: 06/03/23 08:55 Dose: 0 mls/hr Documented By: KATHERINE Insulin Glargine (Insulin Glargine,Hum.Rec.Anlog 100 Unit/Ml 10 Ml Vial) 40 unit SUBCUT BID COUNTS INCLUDE 234 BEDS AT THE [facility] Last Admin: 06/03/23 07:57 Dose: 40 unit Documented By: KATHERINE Insulin Human Lispro (Insulin Lispro 100 Unit/Ml 3 Ml Vial) 40 unit SUBCUT TIDAC COUNTS INCLUDE 234 BEDS AT THE [facility] Last Admin: 06/03/23 11:41 Dose: 40 unit Documented By: KATHERINE Insulin Human Lispro (Insulin Lispro 100 Unit/Ml 3 Ml Vial) 0 unit SUBCUT QIDACHS COUNTS INCLUDE 234 BEDS AT THE [facility]; Protocol Last Admin: 06/03/23 11:42 Dose: 4 unit Documented By: KATHERINE Levothyroxine Sodium (Levothyroxine Sodium 50 Mcg Tablet) 50 mcg PO DAILY@0630 COUNTS INCLUDE 234 BEDS AT THE [facility] Last Admin: 06/03/23 06:20 Dose: 50 mcg Documented By: HERB Losartan Potassium (Losartan Potassium 50 Mg Tablet) 100 mg PO DAILY COUNTS INCLUDE 234 BEDS AT THE [facility]; Protocol Last Admin: 06/03/23 07:57 Dose: 100 mg Documented By: KATHERINE Montelukast Sodium (Montelukast Sodium 10 Mg Tablet) 10 mg PO BEDTIME COUNTS INCLUDE 234 BEDS AT THE [facility] Last Admin: 06/02/23 20:13 Dose: 10 mg Documented By: HERB Morphine Sulfate (Morphine Sulfate 4 Mg/Ml Cartridge) 4 mg IVPUSH Q4H PRN; Protocol PRN Reason: Pain, Severe (Pain Scale 7-10) Last Admin: 06/03/23 15:25 Dose: 4 mg Documented By: KTAHERINE Non-Formulary Medication (Methotrexate (Pf) [Rasuvo (Pf)]) 25 mg SUBCUT [facility] Ondansetron HCl (Ondansetron Hcl 4 Mg/2 Ml Vial) 4 mg IVPUSH Q8H PRN PRN Reason: Nausea and Vomiting Pharmacy Consult (Consult Rx Vancomycin Dosing) 1 each MISCELLANE DAILY PRN PRN Reason: Consult order Sodium Chloride (0.9 % Sodium Chloride Flush 3 Ml Syringe) [facility] Last Admin: 06/03/23 07:50 Dose: 3 ml Documented By: KATHERINE Spironolactone (Spironolactone 25 Mg Tablet) 50 mg PO DAILY COUNTS INCLUDE 234 BEDS AT THE [facility]; Protocol Last Admin: 06/03/23 07:49 Dose: 50 mg Documented By: KATHERINE Labs 06/02/23 05:53 06/03/23 05:45 Labs: Laboratory Results - last 24 hr 06/02/23 06/02/23 06/03/23 16:37 19:18 05:45 Estim Creat Clear Calc Estimated GFR POC Glucose 188 H 147 H Random Vancomycin 16.5 06/03/23 06/03/23 06/03/23 05:45 07:14 11:17 Estim Creat Clear Calc 40.0 Estimated GFR 33 POC Glucose 126 H 242 H Random Vancomycin Microbiology Microbiology Results: Microbiology 05/31/23 17:56 Blood Culture - Preliminary Blood - Subclavian Bacillus species 06/01/23 06:29 Blood Culture - Preliminary Blood - Venous No growth after 48 hours. 06/01/23 06:29 Blood Culture - Preliminary Blood - Venous No growth after 48 hours. Assessment and Plan (1) Bacteremia: Status: Acute (2) Open abdominal wall wound: Status: Acute Plan 72-year-old female with past medical history as mentioned above comes into the hospital with nonhealing wound bacteremia 2/2 growing bacillus species - follow final speciation and susceptibility surveillance blood cultures negative today Infectious Disease following - recommend vanco for 4 weeks (from 06/01)with weekly creatinine and trough and CBC echo with no evidence of vegetation nonhealing abd wound failed outpatient therapy with doxycycline x2 rounds Seen and evaluated by General surgery> no need for debridement or surgical intervention as wound is draining on its own Irrigate wound with normal saline daily, Pack wound with iodoform dressing and cover with ABD, will need wound care clinic follow-up outpatient lactic acidosis Likely secondary to nonhealing wound - also on metformin Resolved diabetes mellitus type 2 Sliding scale, ADA diet, Lantus 40 units b.i.d., Humalog 40 units t.i.d. metformin on hold hypertension continue antihypertensive hyperlipidemia continue statin hypothyroidism continue Synthroid history of PE continue Eliquis DVT prophylaxis:? Georges Attending Dr. Goyal Full code dispo - seen by PT rec STR vs home PT Continue hospitalization for bacteremia, pending final cultures Time Spent With Patient Time: Total time managing care of this patient today ____ minutes. Quality Stroke Does the patient have a stroke diagnosis?: No VTE Prior VTE?: No VTE Risk Level:: Medical - moderate - high VTE Device Contraindication: Treatment Not Indicated VTE Drug Contraindication: N/A - Med Ordered
[2023-06-03 16:27] LABS: Glucose, Whole Blood 210 mg/dL (60-115)
[2023-06-03] MEDS: Fluconazole 150 MG TABLET PO (20:23)
[2023-06-03] MEDS: Montelukast Sodium 10 MG TABLET PO (20:24)
[2023-06-03] MEDS: Atorvastatin Calcium 10 MG TABLET PO (20:24)
[2023-06-03 20:29] LABS: Glucose, Whole Blood 134 mg/dL (60-115)
[2023-06-03] MEDS: oxyCODONE HCl Immed Release 5 MG TABLET PO (22:28)
[2023-06-04] MEDS: cefEPime HCl 2 GM in 0.9 % Sodium Chloride 50 ML IV (02:34)
[2023-06-04] MEDS: oxyCODONE HCl Immed Release 5 MG TABLET PO ×2 (02:34→06:29)
[2023-06-04 03:15] VITALS: BP 101/55; PULSE 78; RESP 17; TEMP 36.5; O2SAT 93
[2023-06-04 06:04] LABS: Estimated Glomerular Filt Rate 33
[2023-06-04] MEDS: Levothyroxine Sodium 50 MCG TABLET PO (06:29)
--- NOTE | 2023-06-04 06:41 | HE.PHANOTE ---
GERALD CARTWRIGHT CONTINUE CURRENT DOSE, NEXT LEVEL DUE 06/05 @0600 \MIGUEL
[2023-06-04 07:31] LABS: Glucose, Whole Blood 114 mg/dL (60-115)
[2023-06-04 07:35] VITALS: BP 112/61; PULSE 75; RESP 18; TEMP 36.1; O2SAT 93
[2023-06-04 07:57] VITALS: BMI 45.3
--- NOTE | 2023-06-04 08:55 | MHC.CM.PN ---
Addendum entered by Claudia Galvan 06/04/23 16:15: PT CURRENTLY HAVING PICC LINE PLACED BLS TRANSPORT IS BOOKED FOR 1800 [facility]IA [facility] PENDING PICC REPORTS ARE SENT TO [facility] BEFORE TRANSPORT. ED CM WILL SEND PICC REPORT ONCE AVAILABLE, IF IT IS NOT AVAILABLE PRIOR TO 1800 TRANSPORT, SHE WILL RESCHEDULE FOR TOMORROW MORNING. Addendum entered by Claudia Galvan 06/04/23 13:05: [facility] HAS OFFERED A BED PENDING LINE PLACEMENT AND HCP HCP COMPLETED AND UPLOADED TO [facility] PT NOW AWAITING NEPHRO CONSULT AND SUBSEQUENT LINE PLACEMENT Original Note: PT STILL WAITING FOR LINE PLACEMENT TO BE FOLLOWED BY STR FOR IV ABX AND WOUND CARE PT REPORTED HER PREFERRED SNF WAS [facility], UPDATES WERE SENT TO SNF THIS MORNING AWAITING RESPONSE TO DETERMINE IF THEY WILL HAVE A BED FOR TODAY
[2023-06-04] MEDS: polyethylene glycoL 3350 17 GM POWD.PACK PO (09:07)
[2023-06-04] MEDS: Calcium + Vitamin D 250 MG TABLET PO (09:08)
[2023-06-04] MEDS: Apixaban 5 MG TABLET PO (09:08)
[2023-06-04] MEDS: Docusate Sodium 100 MG CAPSULE PO (09:08)
[2023-06-04] MEDS: Insulin Lispro 100 UNIT/ML 3 ML VIAL 40 UNIT SUBCUT ×3 (09:08→17:38)
[2023-06-04] MEDS: Insulin Glargine,Hum.rec.anlog 100 UNIT/ML 10 ML VIAL 40 UNIT SUBCUT (09:08)
[2023-06-04] MEDS: Losartan Potassium 50 MG TABLET 100 MG PO (09:08)
[2023-06-04] MEDS: Furosemide 40 MG TABLET PO (09:08)
[2023-06-04] MEDS: Ferrous Sulfate 324 MG TABLET.DR PO (09:08)
[2023-06-04] MEDS: Spironolactone 25 MG TABLET 50 MG PO (09:09)
[2023-06-04] MEDS: Escitalopram Oxalate 10 MG TABLET PO (09:09)
[2023-06-04] MEDS: vancomycin HCL 1,000 MG in 0.9 % Sodium Chloride 250 ML 270 MG IV (09:09)
[2023-06-04] MEDS: 0.9 % Sodium Chloride Flush 3 ML SYRINGE IVFLUSH (09:09)
[2023-06-04] MEDS: Fluticasone/Vilanterol 200/25 BLST.W.DEV 1 PUFF INHALE (09:11)
[2023-06-04 09:14] VITALS: PULSE 78; RESP 20; O2SAT 92
--- NOTE | 2023-06-04 10:50 | P.DS_ITS ---
DS: Providers Provider Date of Service: 06/04/23 Date of admission: 06/01/23 01:25 Date of discharge: 06/04/23 Primary care physician: Aydin Leo MD Consults: 06/01/23 01:24 Consult to General Surgery Routine Consulting Provider: [facility] General Surgeons Reason for consultation: non-healing wound Has provider been notified: No Consult to Infectious Diseases Routine Consulting Provider: [facility] Infectious Disease Reason for consultation: non-healing wound Has provider been notified: No 06/01/23 10:42 Consult to Wound Care Routine Consulting Provider: Melissa Montoya Reason for consultation: draining abd wound 06/03/23 16:20 Consult to Nephrology Routine Consulting Provider: Desean Dodson Reason for consultation: CKD, will need 4 weeks IV vanco. pICC line ok? Has provider been notified: No Attending physician on discharge: Dorian Goyal Discharging clinician: Ama Bell DS: Diagnosis Discharge Diagnosis (1) Bacteremia: Status: Acute (2) Open abdominal wall wound: Status: Acute DS: Summary Hospital Course Hospital Course: From H&P on day of admission 72-year-old female past medical history of asthma COPD overlap syndrome, depression, diabetes, HLD, HTN, hypothyroidism, history of pulmonary embolism, comes into the hospital with complaints of nonhealing left lower abdominal quadrant wound.? Patient sister at bedtime, they report that this started in February, has been on 3 rounds of p.o. antibiotics with no resolution.? It is now draining, tender, painful, and last round of antibiotics with doxy p.o. finished about several days ago sister reports no improvement in the wound.? Patient herself reports chronic history of shortness of breath not worsened, no cough, no sputum production, denies any lower extremity edema, no chest pain, no abdominal pain nausea or vomiting, diarrhea constipation, no urinary symptoms On arrival to the ED patient hemodynamically stable Labs are significant for WBC count of 5.7, hemoglobin of 8.6, hematocrit 27.2, scoped her baseline, ESR 73, sodium 134, creatinine of 1.4 which is around her b aseline, lactic acid of 3.6, improved after receiving 1 L fluid Abdomen pelvic CT shows 1.4 cm focus of gas within the subcutaneous fat in the left lower quadrant anterior laterally with surrounding fat stranding potentially corresponding to small wound in the region of cellulitis, no drainable fluid collection identified, it does not reach underlying fascial planes, she has small left pleural effusion with dependent atelectasis, hepatic cirrhosis, diverticulosis with no diverticulitis, anasarca Patient received Zosyn which made her vomit, started on IV antibiotics will be admitted for further management Nonhealing abdominal wound. Patient has failed outpatient oral therapy with doxycycline x2. She was seen and evaluated by General surgery and no surgical intervention was required as the wound is draining on its own. She was seen and evaluated by Wound Care who recommended irrigating and packing wound daily. Recommend outpatient follow up in wound clinic. bacteremia 2/ growing bacillus species - follow final speciation and susceptibility pending, sent out to reference lab. surveillance blood cultures negative. Infectious Disease following - recommend vanco for 4 weeks (from 06/01) with weekly creatinine and trough and CBC. echo obtained shows no evidence of vegetation. Picc line was placed 06/04 for abx. should follow up with ID as outpatient Time Spent with Patient Time attestation: Total time managing care of this patient today ____ minutes. Discharge coordination time: Greater than 30 minutes Quality: Safe Use of Opioids Does Pt have an Active Cancer Diagnosis on the Problem List?: No Quality: Stroke Does the patient have a stroke diagnosis?: No Physical Exam Vital Signs: Vital Signs: Last Vital Signs Temp 96.9 F 06/04/23 07:35 Pulse 78 06/04/23 09:14 Resp 20 06/04/23 09:14 BP 112/61 06/04/23 07:35 Pulse Ox 93 06/04/23 07:35 O2 Del Method Room Air 06/04/23 07:35 BMI result Body Mass Index 45.3 Const: General: cooperative, comfortable, no acute distress, alert and awake Nutritional Appearance: obese Orientation/consciousness: patient oriented x3 Resp: Effort & Inspection: normal respiratory effort, no respiratory distress and no use of accessory muscles Cardio: Rate: regular rate GI: Other: small open wound with packing present left lower quadrant with no surrounding erythema Inspection: No distended Palpation (GI): Soft to palpation and nontender Skin: Other: warm,dry Neuro: Other: grossly nonfocal General: patient oriented x3 Extrem: General: Yes no pedal edema DS: Data Data Completed and Pending Labs on day of discharge: Laboratory Results - last 24 hr 06/03/23 06/03/23 06/03/23 11:17 16:20 20:21 Creatinine Estim Creat Clear Calc Estimated GFR POC Glucose 242 H 210 H 134 H 06/04/23 06/04/23 05:08 07:16 Creatinine 1.55 H Estim Creat Clear Calc 40.0 Estimated GFR 33 POC Glucose 114 Preliminary micro results at discharge 05/31/23 17:56 Blood Culture - Preliminary Blood - Subclavian Bacillus species 06/01/23 06:29 Blood Culture - Preliminary Blood - Venous No growth after 48 hours. 06/01/23 06:29 Blood Culture - Preliminary Blood - Venous No growth after 48 hours. 05/31/23 17:57 Blood Culture - Preliminary Blood - Subclavian Bacillus species Discharge Plan Discharge Anticipated Discharge Date/Time: 06/04/23 17:00 Patient Disposition: Xfer SNF Discharge Diagnosis: open wound of abdominal wall bacteremia [facility] [place] [facility] Aydin Leo MD [Primary Care Provider] - 1 Week Deja Reese MD [Physician] - 1 Month Melissa Montoya MD [Physician] - 1 Week Discharge Medications: Continued levothyroxine 50 mcg tablet 50 mcg PO DAILY@0600 simvastatin 20 mg tablet 20 mg PO BEDTIME montelukast 10 mg tablet 10 mg PO BEDTIME losartan 100 mg tablet 100 mg PO DAILY insulin aspart U-100 [Novolog FlexPen U-100 Insulin] 100 unit/mL (3 mL) insulin pen 40 unit subcut TIDAC Eliquis 5 mg tablet 5 mg PO BID albuterol sulfate 90 mcg/actuation HFA aerosol inhaler 2 puff INHALATION Q4H PRN (Reason: Shortness Of Breath Or Wheezing) Rasuvo (PF) 25 mg/0.5 mL auto-injector 25 mg subcut RIOS citalopram 20 mg tablet 20 mg PO DAILY albuterol sulfate 2.5 mg /3 mL (0.083 %) solution for nebulization 2.5 mg inhalation Q4H PRN (Reason: asthma) fluticasone propion-salmeterol [Advair Diskus] 500-50 mcg/dose blister with device 1 ea inhalation BID calcium carbonate-vitamin D3 600 mg-5 mcg (200 unit) Tablet 1 tab PO DAILY ferrous sulfate 325 mg (65 mg iron) Tablet 325 mg PO DAILY spironolactone [Aldactone] 50 mg tablet 50 mg PO QAM Qty: 30 0RF furosemide 20 mg tablet 40 mg PO DAILY insulin glargine [Basaglar KwikPen U-100 Insulin] 100 unit/mL (3 mL) insulin pen 40 unit subcut BID Discontinued metformin 750 mg tablet extended release 24 hr 750 mg PO DAILY Discharge Orders: Discharge Order (Routine); Ordered 06/04/23 Ordered By: Ama Bell Activity on Discharge: As tolerated Stand Alone Forms: Patient Portal Discharge page Care Plan Goals: resolution of infection Health Concerns: open abdominal wall wound bacteremia Plan of Treatment: 1000 mg vancomycin q24 hours for 4 weeks, starting from 06/01 - end date 06/29/2023 monitor weekly creatinine, cbc and vanco trough levels on mondays starting on 06/07 PICC line placed 06/04 call to schedule outpatient follow up with ID metformin stopped due to lower GFR wound care recommends daily irrigation and packing of abdominal wound and outpatient follow up in wound care clinic - call to schedule follow up appointment Assessment: see discharge summary Discharge Date/Time: 06/04/23 18:15
[2023-06-04 11:23] LABS: Glucose, Whole Blood 173 mg/dL (60-115)
[2023-06-04 11:38] VITALS: BP 126/61; PULSE 90; RESP 18; TEMP 36.3; O2SAT 92
[2023-06-04] MEDS: Insulin Lispro 100 UNIT/ML 3 ML VIAL SUBCUT ×2 (12:21→17:38)
--- NOTE | 2023-06-04 14:56 | P.CONNP_ITS ---
History of Present Illness Reason for Consult Consult date: 06/04/23 Chief Complaint Chief complaint: non healing wound History of Present Illness Narrative: 72-year-old female with a past medical history of asthma/COPD overlap syndrome, depression, diabetes, HTN, HLD, hypothyroid, PE, RA, presenting to ED complaining of nonhealing wound with malodorous drainage noted to left lower abdomen x months.? Patient has been seen and evaluated in our ED multiple times for similar symptoms, finished course of antibiotics from PCP, Doxycycline/Keflex prescribed on 04/15 and additional course of Doxycycline prescribed on 05/20 in this ED without relief.? [facility] Past Medical History Medical History Asthma-COPD overlap syndrome Bacteremia Depression Diabetes mellitus, type 2 Hyperlipidemia Hypertension Hypothyroidism Pulmonary embolism Rheumatoid arthritis Family History Family history: reviewed and not pertinent Social History Social History Household Members: Family Housing: House Do you presently have visiting nurse or other home services: No Alcohol intake: never Patient Tobacco Use Status: Never used Tobacco service: No Current occupational status: disabled Meds Allergies Allergy/AdvReac Type Severity Reaction Status Date / Time rosuvastatin [From CRESTOR] Allergy Unknown Unknown Verified 04/15/23 14:07 empagliflozin Allergy Unknown Verified 05/31/23 17:17 [From Jardiance] piperacillin [From Zosyn] AdvReac Intermediate Vomiting Verified 05/31/23 19:29 tazobactam [From Zosyn] AdvReac Intermediate Vomiting Verified 05/31/23 19:29 Active Medications: Current Medications Acetaminophen (Acetaminophen 325 Mg Tablet) 650 mg PO Q6H PRN PRN Reason: Pain, Mild (Pain Scale 1-3) Albuterol Sulfate (Albuterol Sulfate (0.083%) 2.5 Mg/3 Ml Vial.Neb) 2.5 mg INHALE Q4H PRN PRN Reason: asthma Albuterol Sulfate (Albuterol Sulfate 90 Mcg 8 Gm Inhaler) 2 puff INHALE Q4H PRN PRN Reason: Shortness Of Breath Or Wheezing Apixaban (Apixaban 5 Mg Tablet) 5 mg PO BID GIOVANNI Last Admin: 06/04/23 09:08 Dose: 5 mg Atorvastatin Calcium (Atorvastatin Calcium 10 Mg Tablet) 10 mg PO BEDTIME [facility] Last Admin: 06/03/23 20:24 Dose: 10 mg Calcium Carbonate/Cholecalciferol (Calcium + Vitamin D 250 Mg Tablet) 250 mg PO DAILY [facility] Last Admin: 06/04/23 09:08 Dose: 250 mg Dextrose (Dextrose 50 % 25 Gm/50 Ml Syringe) 25 gm IVPUSH Q15M PRN; Protocol PRN Reason: per Hypoglycemia Standing Ord. Docusate Sodium (Docusate Sodium 100 Mg Capsule) 100 mg PO DAILY [facility] Last Admin: 06/04/23 09:08 Dose: 100 mg Escitalopram Oxalate (Escitalopram Oxalate 10 Mg Tablet) 10 mg PO DAILY [facility] Last Admin: 06/04/23 09:09 Dose: 10 mg Ferrous Sulfate (Ferrous Sulfate 324 Mg Tablet.Dr) 324 mg PO DAILY [facility] Last Admin: 06/04/23 09:08 Dose: 324 mg Fluticasone/Vilanterol (Fluticasone/Vilanterol 200/25 Blst.W.Dev) 1 puff INHALE RDAILY [facility] Last Admin: 06/04/23 09:11 Dose: 1 puff Furosemide (Furosemide 40 Mg Tablet) 40 mg PO DAILY [facility]; Protocol Last Admin: 06/04/23 09:08 Dose: 40 mg Glucose (Glucose Gel 15 Gm Gel..Gram.) 15 gm PO Q15M PRN; Protocol PRN Reason: per Hypoglycemia Standing Ord. Vancomycin HCl 1,000 mg/ (Sodium Chloride) 270 mls @ 270 mls/hr IV Q24H [facility] Last Infusion: 06/04/23 10:15 Dose: Infused Insulin Glargine (Insulin Glargine,Hum.Rec.Anlog 100 Unit/Ml 10 Ml Vial) 40 unit SUBCUT BID [facility] Last Admin: 06/04/23 09:08 Dose: 40 unit Insulin Human Lispro (Insulin Lispro 100 Unit/Ml 3 Ml Vial) 40 unit SUBCUT TIDAC [facility] Last Admin: 06/04/23 12:20 Dose: 40 unit Insulin Human Lispro (Insulin Lispro 100 Unit/Ml 3 Ml Vial) 0 unit SUBCUT QIDACHS [facility]; Protocol Last Admin: 06/04/23 12:21 Dose: 2 unit Levothyroxine Sodium (Levothyroxine Sodium 50 Mcg Tablet) 50 mcg PO DAILY@0630 [facility] Last Admin: 06/04/23 06:29 Dose: 50 mcg Losartan Potassium (Losartan Potassium 50 Mg Tablet) 100 mg PO DAILY [facility]; Protocol Last Admin: 06/04/23 09:08 Dose: 100 mg Montelukast Sodium (Montelukast Sodium 10 Mg Tablet) 10 mg PO BEDTIME [facility] Last Admin: 06/03/23 20:24 Dose: 10 mg Morphine Sulfate (Morphine Sulfate 4 Mg/Ml Cartridge) 4 mg IVPUSH Q4H PRN; Protocol PRN Reason: Pain, Severe (Pain Scale 7-10) Last Admin: 06/03/23 20:31 Dose: 4 mg Non-Formulary Medication (Methotrexate (Pf) [Rasuvo (Pf)]) 25 mg SUBCUT RIOS [facility] Ondansetron HCl (Ondansetron Hcl 4 Mg/2 Ml Vial) 4 mg IVPUSH Q8H PRN PRN Reason: Nausea and Vomiting Oxycodone HCl (Oxycodone Hcl Immed Release 5 Mg Tablet) 5 mg PO Q4H PRN PRN Reason: Pain, Severe (Pain Scale 7-10) Last Admin: 06/04/23 06:29 Dose: 5 mg Pharmacy Consult (Consult Rx Vancomycin Dosing) 1 each MISCELLANE DAILY PRN PRN Reason: Consult order Polyethylene Glycol (Polyethylene Glycol 3350 17 Gm Powd.Pack) 17 gm PO BID [facility] Last Admin: 06/04/23 09:07 Dose: 17 gm Sodium Chloride (0.9 % Sodium Chloride Flush 3 Ml Syringe) [address] [facility] Last Admin: 06/04/23 09:09 Dose: 3 ml Spironolactone (Spironolactone 25 Mg Tablet) 50 mg PO DAILY [facility]; Protocol Last Admin: 06/04/23 09:09 Dose: 50 mg Home Medications Medication Instructions Recorded Confirmed Last Taken Type albuterol sulfate 2.5 mg/3 mL 2.5 mg inhalation Q4H PRN asthma 01/20/23 06/01/23 Unknown History (0.083 %) solution for nebulization albuterol sulfate 90 mcg/actuation 2 puff inhalation Q4H PRN 01/20/23 06/01/23 01/19/23 History aerosol inhaler Shortness Of Breath Or Wheezing apixaban 5 mg tablet (Eliquis) 5 mg PO BID 01/20/23 06/01/23 01/19/23 History calcium carbonate 600 mg-vitamin 1 tab PO DAILY 01/20/23 06/01/23 01/19/23 History D3 5 mcg (200 unit) tablet citalopram 20 mg tablet 20 mg PO DAILY 01/20/23 06/01/23 01/19/23 History ferrous sulfate 325 mg (65 mg 325 mg PO DAILY 01/20/23 06/01/23 01/19/23 History iron) tablet fluticasone 500 mcg-salmeterol 50 1 ea inhalation BID 01/20/23 06/01/23 01/19/23 History mcg/dose blistr powdr for inhalation (Advair Diskus) insulin aspart U-100 100 unit/mL 40 unit subcut TIDAC 01/20/23 06/01/23 01/19/23 History (3 mL) subcutaneous pen (Novolog FlexPen U-100 Insulin aspart) levothyroxine 50 mcg tablet 50 mcg PO DAILY@0600 01/20/23 06/01/23 02/19/23 History losartan 100 mg tablet 100 mg PO DAILY 01/20/23 06/01/23 01/19/23 History methotrexate (PF) 25 mg/0.5 mL 25 mg subcut RIOS 01/20/23 06/01/23 01/17/23 History subcutaneous auto-injector (Rasuvo (PF)) montelukast 10 mg tablet 10 mg PO BEDTIME 01/20/23 06/01/23 01/19/23 History simvastatin 20 mg tablet 20 mg PO BEDTIME 01/20/23 06/01/23 01/19/23 History furosemide 20 mg tablet 40 mg PO DAILY 06/01/23 06/01/23 Unknown History insulin glargine 100 unit/mL (3 40 unit subcut BID 06/01/23 06/01/23 Unknown History mL) subcutaneous pen (Basaglar KwikPen U-100 Insulin) Physical Exam Vital Signs: Last Vital Signs Temp 97.4 F 06/04/23 11:38 Pulse 90 06/04/23 11:38 Resp 18 06/04/23 11:38 BP 126/61 06/04/23 11:38 Pulse Ox 92 06/04/23 11:38 O2 Del Method Room Air 06/04/23 11:38 BMI result Body Mass Index 45.3 Results Lab Results 06/02/23 05:53 06/04/23 05:08 Lab results: Chemistry 06/02/23 06/02/23 06/03/23 05:53 05:53 05:45 Sodium 134 L Potassium 4.7 Carbon Dioxide 23 BUN 43 H Creatinine Cancelled 1.43 H 1.55 H Calcium 9.5 06/04/23 05:08 Sodium Potassium Carbon Dioxide BUN Creatinine 1.55 H Calcium Hematology 06/02/23 05:53 WBC 5.6 Hgb 9.1 L Plt Count 206 Assessment and Plan (1) Hypertension: Status: Acute Plan CKD 3 No absolute contraindication for a PICC line Shall follow as needed Thanks Time Spent With Patient Time: Total time managing care of this patient today ____ minutes. Procedures Date of Service Date of Service: 06/04/23
--- NOTE | 2023-06-04 17:09 | HO.PICC ---
PICC Line Insertion NPICC Diagnosis: Bacteremia Indication: long-term antibiotics needed Pertinent Labs: reviewed Technique: Following informed consent including risks, benefits and alternatives and using sterile technique including cap and mask, sterile gown, glove and drape, the right arm was prepped and draped in the usual sterile fashion of full barrier technique with CHG. Following completion of [place] Protocol the skin and soft tissues were anesthetized with 1% Lidocaine plain. Using ultrasound guidance, right basilic vein access was obtained twice by Zonia Guerrero RN, but unable to pass guidewire. Right basilic vein was then accessed on first attempt by Missy Arndt RN, but also unable to pass guidewire. Right basilic vein was accessed by Dr Auguste on second attempt. Over an 0.018 wire through peel-away sheath, a 4FR single lumen PASV PICC line was positioned. Catheter length is 44 CM internal length, at the 1 CM external mauri, for a total trimmed length of 45 CM. The procedure was performed in S272. Tip verification was performed by Brendon Patel with Sherlock 3CG. Tip located in SVC. Ultrasound was used to document vein patency and for needle entry. A formal ultrasound picture and cardiac rhythm strip was recorded. [employer] Attendant has released the line for use and it is currently dressed with a StatLock, Tegaderm, and CHG disc. Verification has been performed for blood return and line patency. Arm Circumference: 39.5 CM Equipment: WeembaPICC SOLO Catheter Type: 4FR single lumen PASV PICC Lot #: [id number]
[2023-06-04 17:25] VITALS: BP 122/60; PULSE 99; RESP 18; TEMP 36.2; O2SAT 94
[2023-06-04 17:31] LABS: Glucose, Whole Blood 196 mg/dL (60-115)
--- NOTE | 2023-06-04 17:34 | MHC.CM.ED ---
PICC line documentation obtained. Uploaded in Care Port to [facility] and faxed to [phone] as requested by Saloni Do. Spoke with RN on south 3 regarding paper work being uploaded to facility and that transport was booked by previous CM for 6pm. Explained that 911 calls take precedence and BLS could be delayed.
== END 2023-06-04 18:15 | disposition skilled nursing facility (03) | DRG 602 ==
LOC: HO.ED 18:00 → HO.EDOVER 06-01 01:52 → HO.S3 06-01 17:12
PROVIDERS: Nurse Practitioner Acute Care; Physician Assistant; Physician Assistant Medical; Surgery; Admitting Provider Internal Medicine; Emergency Provider Internal Medicine; PCP Internal Medicine; Visit Provider Physician Assistant Medical
DX: L02.211 Cutaneous abscess of abdominal wall (principal); G93.41 Metabolic encephalopathy; E87.21 Acute metabolic acidosis; Z68.41 Body mass index [BMI] 40.0-44.9, adult; Z68.42 Body mass index [BMI] 45.0-49.9, adult; D84.821 Immunodeficiency due to drugs; R78.81 Bacteremia; E66.01 Morbid (severe) obesity due to excess calories; I12.9 Hypertensive chronic kidney disease with stage 1 through stage 4 chronic kidney disease, or unspecified chronic kidney disease; N18.30 Chronic kidney disease, stage 3 unspecified; B96.89 Other specified bacterial agents as the cause of diseases classified elsewhere; E11.22 Type 2 diabetes mellitus with diabetic chronic kidney disease; E78.5 Hyperlipidemia, unspecified; E03.9 Hypothyroidism, unspecified; M06.9 Rheumatoid arthritis, unspecified; J44.9 Chronic obstructive pulmonary disease, unspecified; Z20.822 Contact with and (suspected) exposure to COVID-19; Z79.631 Long term (current) use of antimetabolite agent; Z86.711 Personal history of pulmonary embolism; Z79.4 Long term (current) use of insulin; Z79.01 Long term (current) use of anticoagulants; Z79.51 Long term (current) use of inhaled steroids; Z79.890 Hormone replacement therapy; Z79.899 Other long term (current) drug therapy
CPT/HCPCS: 36415; 36573; 74177; 80048; 80076; 80202; 82565; 82947; 83036; 83605; 83880; 84134; 85025; 85027; 85652; 86140; 87040; 87186; 87205; 87635; 93306; 97162; 99285; C1751; J0692; J2270; J2543; J3370; J3371; Q9957; Q9967

== ENCOUNTER 2023-06-01 01:25 | Outpatient (BNV) | payer MEDICARE, SELFPAY | END 2023-06-02 07:00 | PROVIDERS: Admitting Provider Internal Medicine; Emergency Provider Internal Medicine; PCP Internal Medicine; Visit Provider Internal Medicine | DX: I34.81 Nonrheumatic mitral (valve) annulus calcification (principal); I35.8 Other nonrheumatic aortic valve disorders | CPT/HCPCS: 93306 ==

== ENCOUNTER → 2023-06-01 01:25 | Outpatient (BNV) | payer MEDICARE, SELFPAY | PROVIDERS: Admitting Provider Internal Medicine; Emergency Provider Internal Medicine; PCP Internal Medicine; Visit Provider Surgery | DX: S31.109A Unspecified open wound of abdominal wall, unspecified quadrant without penetration into peritoneal cavity, initial encounter (principal); G93.41 Metabolic encephalopathy; E66.01 Morbid (severe) obesity due to excess calories; L02.91 Cutaneous abscess, unspecified | CPT/HCPCS: 99222 ==

== ENCOUNTER → 2023-06-01 01:25 | Outpatient (BNV) | payer MEDICARE, SELFPAY | PROVIDERS: Admitting Provider Internal Medicine; Emergency Provider Internal Medicine; PCP Internal Medicine; Visit Provider Internal Medicine | DX: R78.81 Bacteremia (principal) | CPT/HCPCS: 99221; 99232 ==

== ENCOUNTER → 2023-06-01 01:25 | Outpatient (BNV) | payer MEDICARE, SELFPAY | PROVIDERS: Admitting Provider Internal Medicine; Emergency Provider Internal Medicine; PCP Internal Medicine; Visit Provider Internal Medicine | DX: R78.81 Bacteremia (principal); S31.109A Unspecified open wound of abdominal wall, unspecified quadrant without penetration into peritoneal cavity, initial encounter | CPT/HCPCS: 99223; 99232; 99233; 99239; 99499 ==

== ENCOUNTER 2023-07-19 21:40 | Observation (INO) | payer MEDICARE, SELFPAY ==
[2023-07-19 21:48] VITALS: BP 138/48; PULSE 95; O2SAT 95
[2023-07-19 21:54] VITALS: BP 130/48; PULSE 91; RESP 16; TEMP 36.8; O2SAT 94; BMI 43.4
[2023-07-19 22:30] LABS: Anion Gap 15 (12-20); Blood Urea Nitrogen 19 mg/dL (9-16); Calcium 8.8 mg/dL (8.4-10.2); Carbon Dioxide 22 mmol/L (22-29); Chloride 103 mmol/L (96-108); Creatinine Clr Calc Pharmacy 53.9; Estimated Glomerular Filt Rate 47; Glucose Random 390 mg/dL (60-115); Potassium 4.9 mmol/L (3.3-5.1); Sodium 135 mmol/L (135-145)
--- NOTE | 2023-07-19 23:10 | ED.FALL ---
HPI - Fall General Chief Complaint: Fall Stated Complaint: FALL NECK PAIN CHEST PAIN Time Seen by Provider: 07/19/23 22:41 Source: patient and EMS Mode of arrival: EMS Limitations: no limitations History of Present Illness HPI Narrative: This is a 72-year-old female with pertinent history of asthma/COPD overlap syndrome, mood disorder, insulin-dependent diabetes mellitus, hypothyroidism, essential hypertension, history of PE on Eliquis, mixed hyperlipidemia who presents to the emergency department for evaluation of syncope and fall. Patient states while got up to wear her socks and shoes, she got dizzy/lightheaded and passed out. Patient thinks she was passed out for a minute. Patient's roommate called the ambulance and she was brought to the ER. Denies note palpitations prior to the episode of passing out. No rhythmic jerking movement of extremities. No tongue bite or bowel or bladder incontinence. Patient states she has been having bloody bowel movements and Eliquis has been on hold for the last 48 hours. Despite Eliquis being on hold, patient continues to have painless bloody bowel movements. no abdominal discomfort, nausea, vomiting. Patient denies fever, chills, chest discomfort, palpitations, shortness of breath, changes in urinary habits. Related Data Home Medications Medication Instructions Recorded Confirmed albuterol sulfate 2.5 mg/3 mL 2.5 mg inhalation Q4H PRN asthma 01/20/23 06/01/23 (0.083 %) solution for nebulization albuterol sulfate 90 mcg/actuation 2 puff inhalation Q4H PRN 01/20/23 06/01/23 aerosol inhaler Shortness Of Breath Or Wheezing apixaban 5 mg tablet (Eliquis) 5 mg PO BID 01/20/23 07/20/23 calcium carbonate 600 mg-vitamin 1 tab PO DAILY 01/20/23 07/20/23 D3 5 mcg (200 unit) tablet citalopram 20 mg tablet 20 mg PO DAILY 01/20/23 07/20/23 ferrous sulfate 325 mg (65 mg 325 mg PO DAILY 01/20/23 07/20/23 iron) tablet fluticasone 500 mcg-salmeterol 50 1 ea inhalation BID 01/20/23 07/20/23 mcg/dose blistr powdr for inhalation (Advair Diskus) insulin aspart U-100 100 unit/mL 40 unit subcut TIDAC 01/20/23 07/20/23 (3 mL) subcutaneous pen (Novolog FlexPen U-100 Insulin aspart) levothyroxine 50 mcg tablet 50 mcg PO DAILY@0600 01/20/23 07/20/23 losartan 100 mg tablet 100 mg PO DAILY 01/20/23 07/20/23 methotrexate (PF) 25 mg/0.5 mL 25 mg subcut RIOS 01/20/23 07/20/23 subcutaneous auto-injector (Rasuvo (PF)) montelukast 10 mg tablet 10 mg PO BEDTIME 01/20/23 07/20/23 simvastatin 20 mg tablet 20 mg PO BEDTIME 01/20/23 07/20/23 furosemide 20 mg tablet 40 mg PO DAILY 06/01/23 07/20/23 insulin glargine 100 unit/mL (3 40 unit subcut BID 06/01/23 07/20/23 mL) subcutaneous pen (Basaglar KwikPen U-100 Insulin) Previous Rx's Medication Instructions Recorded spironolactone 50 mg tablet 50 mg PO QAM #30 tabs 02/20/23 (Aldactone) Allergies Allergy/AdvReac Type Severity Reaction Status Date / Time rosuvastatin [From CRESTOR] Allergy Unknown Unknown Verified 04/15/23 14:07 empagliflozin Allergy Unknown Verified 05/31/23 17:17 [From Jardiance] piperacillin [From Zosyn] AdvReac Intermediate Vomiting Verified 05/31/23 19:29 tazobactam [From Zosyn] AdvReac Intermediate Vomiting Verified 05/31/23 19:29 Review of Systems Review of Systems: All other systems are reviewed and are negative Constitutional: Reports as per HPI and Reports no additional constitutional complaints Eyes: Reports as per HPI and Reports no additional eye complaints Reports system reviewed and no additional complaints, except as documented Cardiovascular: Reports as per HPI and Reports no additional cardiovascular complaints Respiratory: Reports as per HPI and Reports no additional respiratory complaints Gastrointestinal: Reports as per HPI and Reports no additional gastrointestinal complaints Genitourinary: Reports no additional female genitourinary complaints Musculoskeletal: Reports no additional musculoskeletal complaints Skin/Breast: Reports system reviewed and no additional complaints, except as docu Psychiatric: Reports no additional psychiatric complaints Endocrine: Reports no additional endocrine complaints Hematologic/Lymphatic: Reports no additional hematologic/lymphatic complaints Allergic/Immunologic: Reports no additional allergic/immunologic complaints Reports system reviewed and no additional complaints, except as documented and Reports Abnormal speech present [facility] Past Medical History Medical History Bacteremia Morbid (severe) obesity due to excess calories Asthma-COPD overlap syndrome Hypothyroidism Pulmonary embolism Depression Hyperlipidemia Rheumatoid arthritis Hypertension Diabetes mellitus, type 2 Social History Social History Household Members: Family Housing: House Do you presently have visiting nurse or other home services: No Alcohol intake: never Patient Tobacco Use Status: Never used Tobacco Smoked in Last 30 Days: No Use of substances other than those prescribed or required for medical reasons: No Advance Directives: Yes Advance Directives on File: Yes Advance Directives Date on File: 06/07/23 Nutrition Risks: No Nutritional Risk service: No Current occupational status: disabled Physical Exam Vital Signs: Vital Signs: Last Vital Signs Temp 98.3 F 07/20/23 06:00 Pulse 88 07/20/23 06:00 Resp 17 07/20/23 06:00 BP 134/55 L 07/20/23 06:00 Pulse Ox 93 07/20/23 06:00 O2 Del Method Room Air 07/20/23 06:00 O2 Flow Rate 2 07/20/23 00:18 BMI result Body Mass Index 43.4 Vital signs have been reviewed and appear to be correct. Blood pressure elevated. Heart rate normal. Respiratory rate normal. Temperature normal. Oxygen saturation normal. Appearance: Alert. Oriented X3. No acute distress. Head: Normal external exam. Normocephalic. Atraumatic. No Warren signs noted. No raccoon eyes noted Eyes: PERRLA. EOMI. Conjunctiva and sclera normal. Eyelids normal. ENT: TM's Normal. Pharynx normal. Uvula midline. Moist mucous membranes. No trismus noted. No drooling noted. No muffled voice noted. Neck: Normal inspection. Neck supple. FROM. No adenopathy. Thyroid Normal. No meningeal signs. No neck mass noted. CVS: Normal heart rate and rhythm. Heart sound normal. No murmurs noted. Pulses normal throughout. Respiratory: No respiratory distress. Painless inspiration. Breath sounds normal. No wheezes/rales/rhonchi noted. Chest nontender. No accessory muscle usage noted or decreased air movement noted. Abdomen: Soft and nontender. Bowel sounds normal in all 4 quadrants. No distention noted. No organomegaly noted. No visible injury noted. Rectal exam: Dark stool that is guaiac positive. Back: No CVA tenderness. Full range of motion noted. Skin: Skin warm and dry. Normal skin color. Normal skin turgor. No rashes/lesions/lacerations noted. Extremities: No lower extremity edema. Extremities exhibit normal range of motion. Extremities nontender. Neuro: Oriented X 3. Cranial nerve exam: II-XII are grossly intact No motor deficit. No sensory deficit. Reflexes normal. Course Reevaluation(s) Reevaluation #1: a/P a mechanical fall and head injury patient is on Eliquis been held for the last 48 hours due to GI bleed. 1. GCS of 15 with normal neuro exam and head CT. 2. Patient is anemic dropped 1 unit of hemoglobin from her baseline found to have a guaiac-positive stool. Admit for further evaluation. Time: 01:14 Medications Administered Discontinued Medications Generic Name Dose Route Start Last Admin Trade Name Freq PRN Reason Stop Dose Admin Sodium Chloride 1,000 mls @ 999 mls/hr 07/19/23 23:12 07/20/23 02:02 Ns IV 07/20/23 00:12 Infused .Q1H1M ONE Infusion Insulin Glargine 30 unit 07/20/23 01:29 07/20/23 01:49 Insulin Glargine,Hum.Rec.Anlog 100 Unit/Ml 10 Ml Vial SUBCUT 07/20/23 01:30 30 unit ONCE ONE Administration Insulin Human Regular 10 unit 07/19/23 23:12 07/19/23 23:52 Insulin Regular, Human 100 Unit/Ml 3 Ml Vial IVPUSH 07/19/23 23:13 10 unit ONCE ONE Administration Pantoprazole Sodium 80 mg 07/20/23 01:26 07/20/23 01:49 Pantoprazole Sodium 40 Mg/10 Ml Vial IVPUSH 07/20/23 01:27 80 mg ONCE ONE Administration Medical Decision Making Differential Diagnosis Differential Diagnoses: The differential diagnosis associated with the presentation includes ( Intracranial bleed, closed-head injury, coagulopathy, anemia, electrolyte abnormality, GI bleed.) Admission/Observation Consideration of admission/observation: Escalation of care including admission/observation considered Consult Healthcare Provider Management of the patient was discussed with: Hospitalist ( Dr. Kirk) Lab Data MDM Lab Attestation statement: I reviewed the patient's lab results. 07/20/23 05:04 07/20/23 05:04 Labs: Lab Results 07/19/23 07/20/23 07/20/23 Range/Units 22:09 00:31 00:50 WBC 5.4 (4.8-10.8) X10*3/uL RBC 2.65 L (4.20-5.50) X10*6/uL Hgb 8.2 L (12.0-16.0) g/dl Hct 25.6 L (37.0-47.0) % MCV 96.6 (80.0-98.0) fL MCH 30.9 (27.0-33.0) pg MCHC 32.0 (31.0-35.0) g/dl RDW 18.0 H (11.0-16.0) % Plt Count 202 (160-400) X10*3/uL MPV 10.9 (9.4-12.3) fL Immature Gran % (Auto) 0.7 H (0.0-0.4) % Neut % (Auto) 58.6 (45-73) % Lymph % (Auto) 21.0 (20-40) % Beckham % (Auto) 13.8 H (2-11) % Eos % (Auto) 4.4 H (0-4) % Baso % (Auto) 1.5 (0-2) % Lymph # (Auto) 1.1 L (1.2-4.9) X10*3/uL Beckham # (Auto) 0.8 (0.1-1.2) X10*3/uL Eos # (Auto) 0.2 (0.0-0.4) X10*3/uL Baso # (Auto) 0.1 (0.0-0.2) X10*3/uL Abs Immat Gran (auto) 0.04 H (0.00-0.03) X10*3/uL Absolute Neuts (auto) 3.2 (2.0-8.3) x10*3/uL Absolute Nucleated RBC 0.000 (0.0-0.012) X10*3/uL Nucleated RBC % (auto) 0.0 (0.0-0.2) /100WBC Sodium 135 (135-145) mmol/L Potassium 4.9 (3.3-5.1) mmol/L Chloride 103 (96-108) mmol/L Carbon Dioxide 22 (22-29) mmol/L Anion Gap 15 (12-20) BUN 19 H (9-16) mg/dL Creatinine 1.13 (0.5-1.4) mg/dL Estim Creat Clear Calc 53.9 Estimated GFR 47 POC Glucose 287 H (60-115) mg/dL Random Glucose 390 H* (60-115) mg/dL Calcium 8.8 D (8.4-10.2) mg/dL Troponin I High Sens 16.9 (<3.5-17.0) ng/L Stool Occult Blood POSITIVE (NEGATIVE) Independent Interpretation I performed an independent interpretation of an: CT Scan ( head/C-spine: No acute intracranial pathology, no C-spine Acute fracture.) Radiology Impression Discussion of test interpretation with radiology: I have reviewed the radiologist's reading. Discharge Plan Discharge Clinical Impression: Acute GI bleeding, Anemia, Syncope and collapse Patient Disposition: Admitted As Inpatient
[2023-07-19 23:47] VITALS: BP 138/51; PULSE 88; RESP 19; TEMP 37.1; O2SAT 93
[2023-07-20] VITALS (10 sets, daily range): BP systolic 86–136; BP diastolic 41–60; PULSE 85–96; RESP 16–24; TEMP 36.7–36.8; O2SAT 93–96
--- NOTE | 2023-07-20 00:23 | MHC.EDTECH ---
THIS PCT ASSUMED CARE OF PT AT 2300 ,PT VITALS TAKEN ,PT WAS INCONTINENT OF URINE , EXTRA BLANKETS REMOVE FROM UNDERNEATH PATIENT ,PURE WICK IN PLACE ,PT RESTING QUIETLY IN BED .
--- NOTE | 2023-07-20 01:28 | PM.IMHP ---
History of Present Illness Date of Service: 07/20/23 Chief Complaint: Syncope and fall This is a 72-year-old female with pertinent history of asthma/COPD overlap syndrome, mood disorder, insulin-dependent diabetes mellitus, hypothyroidism, essential hypertension, history of PE on Eliquis, mixed hyperlipidemia who presents to the emergency department for evaluation of syncope and fall. Patient states while got up to wear her socks and shoes, she got dizzy/lightheaded and passed out. Patient thinks she was passed out for a minute. Patient's roommate called the ambulance and she was brought to the ER. Denies note palpitations prior to the episode of passing out. No rhythmic jerking movement of extremities. No tongue bite or bowel or bladder incontinence. Patient states she has been having bloody bowel movements and Eliquis has been on hold for the last 48 hours. Despite Eliquis being on hold, patient continues to have painless bloody bowel movements. On abdominal discomfort, nausea, vomiting. Patient denies fever, chills, chest discomfort, palpitations, shortness of breath, changes in urinary habits. In the emergency department, stool occult blood noted to be positive Review of Systems Constitutional: Constitutional: Reports fatigue ENT: Reports system reviewed and no additional complaints, except as documented and Reports dizziness Cardiovascular: Cardiovascular: Reports no additional cardiovascular complaints and Reports syncope Respiratory: Respiratory: Reports no additional respiratory complaints Gastrointestinal: Gastrointestinal: Reports hematochezia Genitourinary: Genitourinary: Reports no additional female genitourinary complaints Neurologic: Reports dizziness and Reports syncope Endocrine: Endocrine: Reports fatigue [facility] Medical History Bacteremia Morbid (severe) obesity due to excess calories Asthma-COPD overlap syndrome Hypothyroidism Pulmonary embolism Depression Hyperlipidemia Rheumatoid arthritis Hypertension Diabetes mellitus, type 2 Social History Household Members: Family Housing: House Do you presently have visiting nurse or other home services: No Alcohol intake: never Patient Tobacco Use Status: Never used Tobacco Smoked in Last 30 Days: No Use of substances other than those prescribed or required for medical reasons: No Advance Directives: Yes Advance Directives on File: Yes Advance Directives Date on File: 06/07/23 service: No Current occupational status: disabled Meds Allergies Allergy/AdvReac Type Severity Reaction Status Date / Time rosuvastatin [From CRESTOR] Allergy Unknown Unknown Verified 04/15/23 14:07 empagliflozin Allergy Unknown Verified 05/31/23 17:17 [From Jardiance] piperacillin [From Zosyn] AdvReac Intermediate Vomiting Verified 05/31/23 19:29 tazobactam [From Zosyn] AdvReac Intermediate Vomiting Verified 05/31/23 19:29 Home Medications Medication Instructions Recorded Confirmed Last Taken Type albuterol sulfate 2.5 mg/3 mL 2.5 mg inhalation Q4H PRN asthma 01/20/23 06/01/23 Unknown History (0.083 %) solution for nebulization albuterol sulfate 90 mcg/actuation 2 puff inhalation Q4H PRN 01/20/23 06/01/23 01/19/23 History aerosol inhaler Shortness Of Breath Or Wheezing apixaban 5 mg tablet (Eliquis) 5 mg PO BID 01/20/23 06/01/23 01/19/23 History calcium carbonate 600 mg-vitamin 1 tab PO DAILY 01/20/23 06/01/23 01/19/23 History D3 5 mcg (200 unit) tablet citalopram 20 mg tablet 20 mg PO DAILY 01/20/23 06/01/23 01/19/23 History ferrous sulfate 325 mg (65 mg 325 mg PO DAILY 01/20/23 06/01/23 01/19/23 History iron) tablet fluticasone 500 mcg-salmeterol 50 1 ea inhalation BID 01/20/23 06/01/23 01/19/23 History mcg/dose blistr powdr for inhalation (Advair Diskus) insulin aspart U-100 100 unit/mL 40 unit subcut TIDAC 01/20/23 06/01/23 01/19/23 History (3 mL) subcutaneous pen (Novolog FlexPen U-100 Insulin aspart) levothyroxine 50 mcg tablet 50 mcg PO DAILY@0600 01/20/23 06/01/23 02/19/23 History losartan 100 mg tablet 100 mg PO DAILY 01/20/23 06/01/23 01/19/23 History methotrexate (PF) 25 mg/0.5 mL 25 mg subcut RIOS 01/20/23 06/01/23 01/17/23 History subcutaneous auto-injector (Rasuvo (PF)) montelukast 10 mg tablet 10 mg PO BEDTIME 01/20/23 06/01/23 01/19/23 History simvastatin 20 mg tablet 20 mg PO BEDTIME 01/20/23 06/01/23 01/19/23 History furosemide 20 mg tablet 40 mg PO DAILY 06/01/23 06/01/23 Unknown History insulin glargine 100 unit/mL (3 40 unit subcut BID 06/01/23 06/01/23 Unknown History mL) subcutaneous pen (Basaglar KwikPen U-100 Insulin) Physical Exam Vital Signs and Narrative: Vital Signs: Last Vital Signs Temp 98.2 F 07/20/23 00:18 Pulse 96 07/20/23 00:18 Resp 24 H 07/20/23 00:18 BP 120/46 L 07/20/23 00:18 Pulse Ox 96 07/20/23 00:18 O2 Del Method Room Air 07/20/23 00:18 O2 Flow Rate 2 07/20/23 00:18 BMI result Body Mass Index 43.4 Elderly female lying in bed in no distress Neck supple, no JVD Regular rate and rhythm, S1-S2 heard Regular breath sounds bilaterally, no wheezing or crackles appreciated Abdomen soft nontender, no guarding, no rigidity Patient is awake, alert and oriented to self, place, time and person ; no focal motor deficit Psych: Normal mood No pedal edema Results Labs 07/19/23 22:09 07/19/23 22:09 Labs: Laboratory Results - last 24 hr 07/19/23 07/20/23 07/20/23 22:09 00:31 00:50 MCV 96.6 MCH 30.9 MCHC 32.0 RDW 18.0 H Plt Count 202 MPV 10.9 Immature Gran % (Auto) 0.7 H Neut % (Auto) 58.6 Lymph % (Auto) 21.0 [place] % (Auto) 13.8 H Eos % (Auto) 4.4 H Baso % (Auto) 1.5 Lymph # (Auto) 1.1 L [place] # (Auto) 0.8 Eos # (Auto) 0.2 Baso # (Auto) 0.1 Abs Immat Gran (auto) 0.04 H Absolute Neuts (auto) 3.2 Absolute Nucleated RBC 0.000 Nucleated RBC % (auto) 0.0 Anion Gap 15 Estim Creat Clear Calc 53.9 Estimated GFR 47 POC Glucose 287 H Random Glucose 390 H* Calcium 8.8 D Stool Occult Blood POSITIVE Imaging Radiologist's Impressions: Impressions Cervical Spine CT 07/19/23 22:31 IMPRESSION: 1. No acute intracranial pathology. 2. Chronic white matter small vessel ischemic changes. EXAMINATION: Noncontrast CT scan of the cervical spine. INDICATION: Fall neck pain COMPARISON: CT cervical spine from 01/21/2020 TECHNIQUE: Helical, multidetector axial images were obtained from the occiput to the upper thorax. Coronal and sagittal reformats of the cervical spine were provided for interpretation. DLP: 1380 mGy-cm FINDINGS: No acute fractures or dislocations of the cervical spine are seen. Mild multilevel degenerative changes. Straightening of the normal cervical curvature which may be secondary to patient positioning versus muscle spasm. Anatomic alignment and positioning of the vertebral bodies and posterior elements is noted. The atlantoaxial joint and craniovertebral articulations are normal without evidence of subluxation. There is no prevertebral soft tissue swelling. The thyroid gland and visualized portions of the lung apices and mediastinum are unremarkable. IMPRESSION: 1. No acute visible fracture or dislocation. 2. Mild multilevel degenerative changes. 3. Straightening of the normal cervical curvature which may be secondary to patient positioning versus muscle spasm. Head CT 07/19/23 22:31 IMPRESSION: 1. No acute intracranial pathology. 2. Chronic white matter small vessel ischemic changes. EXAMINATION: Noncontrast CT scan of the cervical spine. INDICATION: Fall neck pain COMPARISON: CT cervical spine from 01/21/2020 TECHNIQUE: Helical, multidetector axial images were obtained from the occiput to the upper thorax. Coronal and sagittal reformats of the cervical spine were provided for interpretation. DLP: 1380 mGy-cm FINDINGS: No acute fractures or dislocations of the cervical spine are seen. Mild multilevel degenerative changes. Straightening of the normal cervical curvature which may be secondary to patient positioning versus muscle spasm. Anatomic alignment and positioning of the vertebral bodies and posterior elements is noted. The atlantoaxial joint and craniovertebral articulations are normal without evidence of subluxation. There is no prevertebral soft tissue swelling. The thyroid gland and visualized portions of the lung apices and mediastinum are unremarkable. IMPRESSION: 1. No acute visible fracture or dislocation. 2. Mild multilevel degenerative changes. 3. Straightening of the normal cervical curvature which may be secondary to patient positioning versus muscle spasm. Assessment and Plan (1) Acute GI bleeding: Status: Acute (2) Syncope: Status: Acute Plan This is a 72-year-old female with pertinent history of asthma/COPD overlap syndrome, mood disorder, insulin-dependent diabetes mellitus, hypothyroidism, essential hypertension, history of PE on Eliquis, mixed hyperlipidemia who presents to the emergency department for evaluation of syncope and fall. #. Acute GI bleed. Will admit patient with cardiac monitoring. Hold Eliquis. Close monitor H&H. Consulted Gastroenterology, appreciate assistance #. Syncope, likely orthostatic in the setting of above. Resuscitated with IV crystalloids. Repeat orthostatics in a.m. #. Acute on chronic blood loss anemia. Hemoglobin above transfusion threshold. Closely monitor. #. Insulin-dependent diabetes mellitus with hyperglycemia. Initiating Accu-Cheks with sliding scale insulin. Reduce home basal insulin while in the hospital #. Asthma/COPD overlap syndrome. No exacerbation during admission #. Mood disorder. Continue home mood stabilizers #. Hypothyroidism. On Synthroid #. Essential hypertension. Hold antihypertensive in the setting of GI bleed. Resume as appropriate Med rec pending DVT prophylaxis: Mechanical Full code Time Spent With Patient Time: Total time managing care of this patient today ____ minutes. Quality Stroke Does the patient have a stroke diagnosis?: No VTE Prior VTE?: No VTE Risk Level:: Medical - moderate - high VTE Device Contraindication: N/A - Device Ordered VTE Drug Contraindication: Treatment Not Indicated
--- NOTE | 2023-07-20 01:38 | PC.NURSE ---
Med req completed.
--- NOTE | 2023-07-20 01:55 | MHC.EDTECH ---
0200 rounding done ,vitals taken ,type and screen drawn and sent to lab .
--- NOTE | 2023-07-20 04:58 | PC.NURSE ---
pt resting comfortably, eyes closed, breathing even and unlabored
[2023-07-20 05:23] LABS: MANUAL DIFF FLAG NO
--- NOTE | 2023-07-20 05:23 | PC.NURSE ---
Pt asleep at the bedside. Breaths are even regular and unlabored with equal chest rises. O2 sat 92% on 2L NC. NSR on monitor with HR 88. Pending bed assignment.
[2023-07-20 05:31] LABS: Basophils Absolute Auto 0.1 X10*3/uL (0.0-0.2); Basophils Percent Auto 1.3 % (0-2); Eosinophils Absolute Auto 0.2 X10*3/uL (0.0-0.4); Eosinophils Percent Auto 3.8 % (0-4); Hematocrit 25.6 % (37.0-47.0); Hemoglobin 8.1 g/dl (12.0-16.0); Imm Gran Abs Auto 0.03 X10*3/uL (0.00-0.03); Imm Gran Pct Auto 0.6 % (0.0-0.4); Lymphocytes Absolute Auto 1.3 X10*3/uL (1.2-4.9); Lymphocytes Percent Auto 24.8 % (20-40); Mean Corpuscular HGB Conc 31.6 g/dl (31.0-35.0); Mean Corpuscular Hemoglobin 30.9 pg (27.0-33.0); Mean Corpuscular Volume 97.7 fL (80.0-98.0); Mean Platelet Volume 10.8 fL (9.4-12.3); Monocytes Absolute Auto 0.7 X10*3/uL (0.1-1.2); Monocytes Percent Auto 13.6 % (2-11); Neutrophils Absolute Auto 2.9 x10*3/uL (2.0-8.3); Neutrophils Percent Auto 55.9 % (45-73); Platelet Count 182 X10*3/uL (160-400); Red Blood Count 2.62 X10*6/uL (4.20-5.50); White Blood Count 5.2 X10*3/uL (4.8-10.8)
[2023-07-20 05:44] LABS: Anion Gap 15 (12-20); Blood Urea Nitrogen 18 mg/dL (9-16); Calcium 8.7 mg/dL (8.4-10.2); Carbon Dioxide 20 mmol/L (22-29); Chloride 106 mmol/L (96-108); Creatinine Clr Calc Pharmacy 60.3; Estimated Glomerular Filt Rate 54; Glucose Random 309 mg/dL (60-115); Potassium 4.6 mmol/L (3.3-5.1); Sodium 136 mmol/L (135-145)
--- NOTE | 2023-07-20 07:46 | PC.NURSE ---
PT A/O X 3 NO SOB/RAMOS NOTED SPEAKS IN FULL SENTENCES. LUNGS - NOEL UPPER (CTA), NOEL LOWER (DIMINISHED). ABD OBESE, SOFT AND NON-TENDER, BS + X 4 QUADS. PT HAS 0.5CM OPEN AREA TO RLQ ABD FOLD. FOUL SMELLING ODOR WITH BROWN/L[place] DRAINAGE, AREA CLEANSED WITH N/S AND WOUND CLEANSER FOLLOWED BY A SMALL ALLEVYN DRESSING. PT'S ABD FOLD IS CLOEEN WITH VERY SMALL(3) OPEN AREAS. NO EDEMA NOTED. PT CONTINUES TO BE NPO. PT AWARE OF PLAN OF CARE. PT IS ADMITTED TO HOSP. NO N/V NOTED.
--- NOTE | 2023-07-20 09:20 | PC.NURSE ---
pt a&ox3, vss and up to date, nsr on the general assignment reporter. pt verbalizing 7/10 achy thoracic pain at this time. pt resting comfortably in no apparent distress w/ the lights dimmed at this time. respirations even and unlabored. call diaz placed within reach.
--- NOTE | 2023-07-20 10:10 | PC.NURSE ---
tech bedside performing orthos.
--- NOTE | 2023-07-20 10:18 | PC.NURSE ---
pt positive for orthos - admitting provider aware.
--- NOTE | 2023-07-20 11:12 | PM.EVENT ---
Event Note Date of Service: 07/20/23 Event Note: I personally assessed the patient and reviewed the record, A/P per h and p from this morning, awaiting GI eval, will start liquid diet unless a procedure is planned. Time Spent With Patient Time: Total time managing care of this patient today ____ minutes.
--- NOTE | 2023-07-20 12:13 | PHA.MEDREC ---
Pharmacy Consult ? Medication Reconciliation Pharmacy has completed the medication reconciliation. Med rec complete using list from [facility]. Med rec done overnight by nursing had numerous errors and needed correction. Fortunately orders had not yet been continued. Incident report will be filled out.
--- NOTE | 2023-07-20 14:22 | PM.EVENT ---
Event Note Date of Service: 07/20/23 Event Note: GI consult dictated Colonoscopy planned for 07/21 to further evaluate rectal bleeding. Continue to hold eliquis. Time Spent With Patient Time: Total time managing care of this patient today ____ minutes.
--- NOTE | 2023-07-20 15:47 | PC.NURSE ---
pt remains a&ox3, vss and up to date, nsr on the manager monitoring, medication administered per provider order. pt resting comfortably in no apparent distress. respirations even and unlabored. no WOB/SOB shown at this time. lights dimmed. call diaz placed within reach.
--- NOTE | 2023-07-20 16:49 | PC.NURSE ---
tech took POC = 192mg/dL. admitting provider ok'd insulin administration. pt medicated w/ insulin per sliding scale.
[2023-07-21] VITALS (12 sets, daily range): BP systolic 105–165; BP diastolic 43–71; PULSE 81–95; RESP 16–20; TEMP 36.1–36.6; O2SAT 93–98
--- NOTE | 2023-07-21 09:29 | MHC.CM.PN ---
QUIQUE DELIVERED. PT FROM HOME WITH SISTER/BROTHER IN LAW. AMBULATES INDEPENDENTLY BUT USES W/C WHEN TIRED. USES [employer], NO OTHER SERVICES. + HCP: SISTER SITA NUNES PCP: ARIANE RUSSELL DP: PTS GOAL IS TO RETURN HOME WITHOUT SERVICES. SISTER CAN TRANSPORT.
--- NOTE | 2023-07-21 09:35 | HO.PM.IMPN ---
Subjective Subjective Date of Service: 07/21/23 Interval History: f/u on synocpe, gib anemia, no dizziness, no arrythmia, preping for colonoscopy today Physical Exam Vital Signs: Vital Signs: Last Vital Signs Temp 97.3 F 07/21/23 08:00 Pulse 82 07/21/23 08:00 Resp 20 07/21/23 08:00 BP 105/56 L 07/21/23 08:00 Pulse Ox 98 07/21/23 08:00 O2 Del Method Nasal Cannula 07/21/23 08:00 O2 Flow Rate 2 07/21/23 08:00 BMI result Body Mass Index 43.4 Const: Other: General: AO X 3, no acute distress Resp: CTA bilateral CVS: S1,S2,RRR GI: +BS, NT, no distention Skin: No rash Neuro: motor grossly intact Psych: appropriate affect Objective Data Active Medications Acetaminophen (Acetaminophen 325 Mg Tablet) 650 mg PO Q6H PRN PRN Reason: Pain, Mild (Pain Scale 1-3) Acetaminophen (Acetaminophen 325 Mg Tablet) 650 mg PO Q4H PRN PRN Reason: Fever Or Pain Albuterol Sulfate (Albuterol Sulfate (0.083%) 2.5 Mg/3 Ml Vial.Neb) 2.5 mg INHALE Q4H PRN PRN Reason: asthma Dextrose (Dextrose 50 % 25 Gm/50 Ml Syringe) 25 gm IVPUSH Q15M PRN; Protocol PRN Reason: per Hypoglycemia Standing Ord. Docusate Sodium (Docusate Sodium 100 Mg Capsule) 100 mg PO BID [facility] Last Admin: 07/21/23 08:59 Dose: 100 mg Documented By: UBALDO Escitalopram Oxalate (Escitalopram Oxalate 10 Mg Tablet) 10 mg PO DAILY [facility] Last Admin: 07/21/23 09:00 Dose: 10 mg Documented By: UBALDO Folic Acid (Folic Acid 1 Mg Tablet) 1 mg PO DAILY [facility] Last Admin: 07/21/23 09:00 Dose: 1 mg Documented By: UBALDO Glucose (Glucose Gel 15 Gm Gel..Gram.) 15 gm PO Q15M PRN; Protocol PRN Reason: per Hypoglycemia Standing Ord. Insulin Human Lispro (Insulin Lispro 100 Unit/Ml 3 Ml Vial) 0 unit SUBCUT QIDACHS [facility]; Protocol Last Admin: 07/21/23 08:54 Dose: Not Given Documented By: UBALDO Non-Admin Reason: NPO Levothyroxine Sodium (Levothyroxine Sodium 50 Mcg Tablet) 50 mcg PO DAILY@0600 [facility] Last Admin: 07/21/23 08:59 Dose: 50 mcg Documented By: UBALDO Melatonin (Melatonin 3 Mg Tablet) 6 mg PO BEDTIME PRN PRN Reason: Insomnia Montelukast Sodium (Montelukast Sodium 10 Mg Tablet) 10 mg PO BEDTIME [facility] Omeprazole (Omeprazole 20 Mg Capsule.Dr) 20 mg PO BID@0630,1630 [facility] Ondansetron HCl (Ondansetron Hcl 4 Mg/2 Ml Vial) 4 mg IVPUSH Q8H PRN PRN Reason: Nausea and Vomiting Sodium Chloride (0.9 % Sodium Chloride Flush 3 Ml Syringe) 3 ml IVFLUSH QSHIFT [facility] Last Admin: 07/21/23 09:00 Dose: 3 ml Documented By: UBALDO Labs 07/20/23 05:04 07/20/23 05:04 Labs: Laboratory Results - last 24 hr 07/20/23 07/20/23 07/20/23 11:35 12:41 16:29 POC Glucose 254 H 242 H 192 H 07/20/23 07/20/23 07/21/23 21:12 22:40 08:07 POC Glucose 174 H 157 H 188 H Assessment and Plan (1) Acute GI bleeding: Status: Acute (2) Anemia: Status: Acute Plan This is a 72-year-old female with pertinent history of asthma/COPD overlap syndrome, mood disorder, insulin-dependent diabetes mellitus, hypothyroidism, essential hypertension, history of PE on Eliquis, mixed hyperlipidemia who presents to the emergency department for evaluation of syncope and fall. #. Acute GI bleed, acute blood loss anemia. Holding Eliquis, colonscopy today, repeat CBC #. Orthostatic hypotension d/t anemia, hydrated #. Insulin-dependent diabetes mellitus with hyperglycemia. Initiating Accu-Cheks with sliding scale insulin. Reduce home basal insulin while in the hospital #. Asthma/COPD overlap syndrome. No exacerbation during admission #. Mood disorder. Continue home mood stabilizers #. Hypothyroidism. On Synthroid #. Essential hypertension. Hold antihypertensive in the setting of GI bleed. Resume as appropriate Med rec pending DVT prophylaxis: Mechanical Full code Time Spent With Patient Time: Total time managing care of this patient today ____ minutes. Quality Stroke Does the patient have a stroke diagnosis?: No VTE Prior VTE?: No VTE Risk Level:: Medical - moderate - high VTE Device Contraindication: N/A - Device Ordered VTE Drug Contraindication: Treatment Not Indicated
[2023-07-21 10:21] LABS: Hematocrit 30.6 % (37.0-47.0); Hemoglobin 9.6 g/dl (12.0-16.0); Mean Corpuscular HGB Conc 31.4 g/dl (31.0-35.0); Mean Corpuscular Volume 98.7 fL (80.0-98.0); Mean Platelet Volume 10.7 fL (9.4-12.3); Platelet Count 203 X10*3/uL (160-400); Red Cell Distribution Width 17.8 % (11.0-16.0); White Blood Count 5.4 X10*3/uL (4.8-10.8)
--- NOTE | 2023-07-21 13:47 | HO.ANESPROP2 ---
[facility] Active Problems Active Problems: All Active Problems (Updated 07/20/23 @ 06:29 by John Paul Blum MD) Syncope and collapse (Acute) Syncope (Acute) Anemia (Acute) Acute GI bleeding (Acute) Bacteremia (Acute) Soft tissue abscess (Acute) Diabetes mellitus, type 2 (Acute) Open abdominal wall wound (Acute) Hypoglycemia (Acute) Past Medical History Medical History Bacteremia Morbid (severe) obesity due to excess calories Asthma-COPD overlap syndrome Hypothyroidism Pulmonary embolism Depression Hyperlipidemia Rheumatoid arthritis Hypertension Diabetes mellitus, type 2 Family History Family history of problems with anesthesia: No Surgical History History of Problems with Anesthesia: No Social History Social History Household Members: Family Housing: House Do you presently have visiting nurse or other home services: No Alcohol intake: never Patient Tobacco Use Status: Never used Tobacco Advance Directives Date on File: 06/07/23 service: No Current occupational status: disabled Meds Allergies Allergy/AdvReac Type Severity Reaction Status Date / Time rosuvastatin [From CRESTOR] Allergy Unknown Unknown Verified 04/15/23 14:07 empagliflozin Allergy Unknown Verified 05/31/23 17:17 [From Jardiance] piperacillin [From Zosyn] AdvReac Intermediate Vomiting Verified 05/31/23 19:29 tazobactam [From Zosyn] AdvReac Intermediate Vomiting Verified 05/31/23 19:29 Active Medications: Current Medications Acetaminophen (Acetaminophen 325 Mg Tablet) 650 mg PO Q6H PRN PRN Reason: Pain, Mild (Pain Scale 1-3) Acetaminophen (Acetaminophen 325 Mg Tablet) 650 mg PO Q4H PRN PRN Reason: Fever Or Pain Albuterol Sulfate (Albuterol Sulfate (0.083%) 2.5 Mg/3 Ml Vial.Neb) 2.5 mg INHALE Q4H PRN PRN Reason: asthma Dextrose (Dextrose 50 % 25 Gm/50 Ml Syringe) 25 gm IVPUSH Q15M PRN; Protocol PRN Reason: per Hypoglycemia Standing Ord. Docusate Sodium (Docusate Sodium 100 Mg Capsule) 100 mg PO BID [facility] Last Admin: 07/21/23 08:59 Dose: 100 mg Escitalopram Oxalate (Escitalopram Oxalate 10 Mg Tablet) 10 mg PO DAILY [facility] Last Admin: 07/21/23 09:00 Dose: 10 mg Folic Acid (Folic Acid 1 Mg Tablet) 1 mg PO DAILY [facility] Last Admin: 07/21/23 09:00 Dose: 1 mg Glucose (Glucose Gel 15 Gm Gel..Gram.) 15 gm PO Q15M PRN; Protocol PRN Reason: per Hypoglycemia Standing Ord. Insulin Human Lispro (Insulin Lispro 100 Unit/Ml 3 Ml Vial) 0 unit SUBCUT QIDACHS [facility]; Protocol Last Admin: 07/21/23 12:33 Dose: Not Given Levothyroxine Sodium (Levothyroxine Sodium 50 Mcg Tablet) 50 mcg PO DAILY@0600 [facility] Last Admin: 07/21/23 08:59 Dose: 50 mcg Melatonin (Melatonin 3 Mg Tablet) 6 mg PO BEDTIME PRN PRN Reason: Insomnia Montelukast Sodium (Montelukast Sodium 10 Mg Tablet) 10 mg PO BEDTIME [facility] Omeprazole (Omeprazole 20 Mg Capsule.Dr) 20 mg PO BID@0630,1630 [facility] Ondansetron HCl (Ondansetron Hcl 4 Mg/2 Ml Vial) 4 mg IVPUSH Q8H PRN PRN Reason: Nausea and Vomiting Sodium Chloride (0.9 % Sodium Chloride Flush 3 Ml Syringe) 3 ml IVFLUSH QSHIFT [facility] Last Admin: 07/21/23 09:00 Dose: 3 ml Home Medications Medication Instructions Recorded Confirmed Last Taken Type albuterol sulfate 2.5 mg/3 mL 2.5 mg inhalation Q4H PRN asthma 01/20/23 07/20/23 Unknown History (0.083 %) solution for nebulization albuterol sulfate 90 mcg/actuation 2 puff inhalation Q4H PRN 01/20/23 07/20/23 01/19/23 History aerosol inhaler Shortness Of Breath Or Wheezing apixaban 5 mg tablet (Eliquis) 5 mg PO BID 01/20/23 07/20/23 01/19/23 History calcium carbonate 600 mg-vitamin 1 tab PO DAILY 01/20/23 07/20/23 01/19/23 History D3 5 mcg (200 unit) tablet citalopram 20 mg tablet 20 mg PO DAILY 01/20/23 07/20/23 01/19/23 History ferrous sulfate 325 mg (65 mg 325 mg PO DAILY 01/20/23 07/20/23 01/19/23 History iron) tablet levothyroxine 50 mcg tablet 50 mcg PO DAILY@0600 01/20/23 07/20/23 02/19/23 History montelukast 10 mg tablet 10 mg PO BEDTIME 01/20/23 07/20/23 01/19/23 History furosemide 20 mg tablet 20 mg PO DAILY 06/01/23 07/20/23 Unknown History insulin glargine 100 unit/mL (3 34 unit subcut DAILY 06/01/23 07/20/23 Unknown History mL) subcutaneous pen (Basaglar KwikPen U-100 Insulin) acetaminophen 325 mg tablet 650 mg PO Q4H PRN Fever Or Pain 07/20/23 07/20/23 Unknown History docusate sodium 100 mg capsule 100 mg PO BID 07/20/23 07/20/23 Unknown History fluticasone 100 mcg-salmeterol 50 1 inh inhalation BID 07/20/23 07/20/23 Unknown History mcg/dose blistr powdr for inhalation (Advair Diskus) folic acid 1 mg tablet 1 mg PO DAILY 07/20/23 07/20/23 Unknown History insulin lispro 100 unit/mL 1 sliding scale dose subcut TIDAC 07/20/23 07/20/23 Unknown History subcutaneous solution ondansetron 4 mg disintegrating 4 mg PO Q6H PRN Nausea And Vomiting 07/20/23 07/20/23 Unknown History tablet pantoprazole 40 mg tablet,delayed 40 mg PO BID ulcers 07/20/23 07/20/23 Unknown History release phenylephrine 0.25 %-mineral oil 1 appl [place] BID PRN for bleeding 07/20/23 07/20/23 Unknown History 14 %-petrolatm 74.9 % rectal hemorrhoid ointment (Preparation H) Exam Exam Date and Time: July 21, 2023 1347 Height,Weight and Vital Signs: Height 5 ft 3 in Weight 111.13 kg Last Vital Signs Temp 97.1 F 07/21/23 13:25 Pulse 88 07/21/23 13:25 Resp 20 07/21/23 13:25 BP 139/69 07/21/23 13:25 Pulse Ox 98 07/21/23 13:25 O2 Del Method Room Air 07/21/23 13:25 O2 Flow Rate 2 07/21/23 08:00 Pertinent Lab Results Pertinent Lab Results: Laboratory Tests 07/19/23 07/20/23 07/20/23 22:09 00:31 00:50 WBC 5.4 RBC 2.65 L Hgb 8.2 L Hct 25.6 L MCV 96.6 MCH 30.9 MCHC 32.0 RDW 18.0 H Plt Count 202 MPV 10.9 Immature Gran % (Auto) 0.7 H Neut % (Auto) 58.6 Lymph % (Auto) 21.0 [place] % (Auto) 13.8 H Eos % (Auto) 4.4 H Baso % (Auto) 1.5 Lymph # (Auto) 1.1 L [place] # (Auto) 0.8 Eos # (Auto) 0.2 Baso # (Auto) 0.1 Abs Immat Gran (auto) 0.04 H Absolute Neuts (auto) 3.2 Absolute Nucleated RBC 0.000 Nucleated RBC % (auto) 0.0 Sodium 135 Potassium 4.9 Chloride 103 Carbon Dioxide 22 Anion Gap 15 BUN 19 H Creatinine 1.13 Estim Creat Clear Calc 53.9 Estimated GFR 47 POC Glucose 287 H Random Glucose 390 H* Calcium 8.8 D Troponin I High Sens 16.9 Stool Occult Blood POSITIVE Blood Type Antibody Screen 07/20/23 07/20/23 07/20/23 01:48 05:04 06:56 WBC 5.2 RBC 2.62 L Hgb 8.1 L Hct 25.6 L MCV 97.7 MCH 30.9 MCHC 31.6 RDW 18.0 H Plt Count 182 MPV 10.8 Immature Gran % (Auto) 0.6 H Neut % (Auto) 55.9 Lymph % (Auto) 24.8 [place] % (Auto) 13.6 H Eos % (Auto) 3.8 Baso % (Auto) 1.3 Lymph # (Auto) 1.3 [place] # (Auto) 0.7 Eos # (Auto) 0.2 Baso # (Auto) 0.1 Abs Immat Gran (auto) 0.03 Absolute Neuts (auto) 2.9 Absolute Nucleated RBC 0.000 Nucleated RBC % (auto) 0.0 Sodium 136 Potassium 4.6 Chloride 106 Carbon Dioxide 20 L Anion Gap 15 BUN 18 H Creatinine 1.01 Estim Creat Clear Calc 60.3 Estimated GFR 54 POC Glucose 283 H Random Glucose 309 H Calcium 8.7 Troponin I High Sens Stool Occult Blood Blood Type A Positive Antibody Screen NEGATIVE 07/20/23 07/20/23 07/20/23 11:35 12:41 16:29 WBC RBC Hgb Hct MCV MCH MCHC RDW Plt Count MPV Immature Gran % (Auto) Neut % (Auto) Lymph % (Auto) [place] % (Auto) Eos % (Auto) Baso % (Auto) Lymph # (Auto) [place] # (Auto) Eos # (Auto) Baso # (Auto) Abs Immat Gran (auto) Absolute Neuts (auto) Absolute Nucleated RBC Nucleated RBC % (auto) Sodium Potassium Chloride Carbon Dioxide Anion Gap BUN Creatinine Estim Creat Clear Calc Estimated GFR POC Glucose 254 H 242 H 192 H Random Glucose Calcium Troponin I High Sens Stool Occult Blood Blood Type Antibody Screen 07/20/23 07/20/23 07/21/23 21:12 22:40 08:07 WBC RBC Hgb Hct MCV MCH MCHC RDW Plt Count MPV Immature Gran % (Auto) Neut % (Auto) Lymph % (Auto) [place] % (Auto) Eos % (Auto) Baso % (Auto) Lymph # (Auto) [place] # (Auto) Eos # (Auto) Baso # (Auto) Abs Immat Gran (auto) Absolute Neuts (auto) Absolute Nucleated RBC Nucleated RBC % (auto) Sodium Potassium Chloride Carbon Dioxide Anion Gap BUN Creatinine Estim Creat Clear Calc Estimated GFR POC Glucose 174 H 157 H 188 H Random Glucose Calcium Troponin I High Sens Stool Occult Blood Blood Type Antibody Screen 07/21/23 07/21/23 07/21/23 10:06 11:55 13:31 WBC 5.4 RBC 3.10 L Hgb 9.6 L Hct 30.6 L MCV 98.7 H MCH 31.0 MCHC 31.4 RDW 17.8 H Plt Count 203 MPV 10.7 Immature Gran % (Auto) Neut % (Auto) Lymph % (Auto) [place] % (Auto) Eos % (Auto) Baso % (Auto) Lymph # (Auto) [place] # (Auto) Eos # (Auto) Baso # (Auto) Abs Immat Gran (auto) Absolute Neuts (auto) Absolute Nucleated RBC 0.000 Nucleated RBC % (auto) 0.0 Sodium Potassium Chloride Carbon Dioxide Anion Gap BUN Creatinine Estim Creat Clear Calc Estimated GFR POC Glucose 194 H 176 H Random Glucose Calcium Troponin I High Sens Stool Occult Blood Blood Type Antibody Screen Airway Mallampati Class: II (edentulous) TM Dist: >3cm Neck ROM: Full Heart: rrr Lungs: decreased BS bilaterally Assessment and Plan Assessment Anesthesia Assessment: Anesthesia Plan Discussed and Chart Reviewed Final Anesthetic Review Family History of Problems with Anesthesia: No History of Problems with Anesthesia: No NPO: Yes ASA Class: III Final Preanesthetic Review: No Changes in Pt Med Stat, Meds/Allgs Chart Reviewed and Consent Obtained/Reviewed Patient Risk: Intermediate Procedure Risk: Intermediate Anesthetic Plan Anesthetic Plan: MAC: Disposition: Standard PACU
--- NOTE | 2023-07-21 15:02 | PM.OP ---
Brief Operative Note Date of Service: 07/21/23 Pre-op diagnosis: gi bleeding Post-op diagnosis: same Procedure: colonoscopy Surgeon: Johnny Yang MD Anesthesia: MAC Was an Gas Station Attendant used for this Procedure?: No Estimated blood loss (mL): 2 Pathology: other Condition: stable Disposition: PACU
--- NOTE | 2023-07-21 15:03 | PM.EVENT ---
Event Note Date of Service: 07/21/23 Event Note: Colonoscopy note dictated no bleeding normal ti and colon small r colon polyp, snared mild sigmoid diverticulosis internal hemorrhoids Rec: advance diet restart eliquis in am follow hct Time Spent With Patient Time: Total time managing care of this patient today ____ minutes.
[2023-07-21 16:45] LABS: Glucose, Whole Blood 175 mg/dL (60-115)
[2023-07-21] MEDS: Insulin Lispro 100 UNIT/ML 3 ML VIAL SUBCUT ×2 (16:49→20:50)
[2023-07-21] MEDS: Omeprazole 20 MG CAPSULE.DR PO (16:50)
[2023-07-21 19:31] LABS: Glucose, Whole Blood 279 mg/dL (60-115)
[2023-07-21] MEDS: Montelukast Sodium 10 MG TABLET PO (20:50)
[2023-07-21] MEDS: Docusate Sodium 100 MG CAPSULE PO (20:50)
[2023-07-21] MEDS: Melatonin 3 MG TABLET 6 MG PO (20:50)
--- NOTE | 2023-07-21 22:21 | OP_ITS ---
DATE OF SERVICE: 07/21/2023 SURGEON: Johnny Yang MD INDICATIONS: Rectal bleeding. PREOPERATIVE DIAGNOSIS: POSTOPERATIVE DIAGNOSIS: PROCEDURE PERFORMED: Colonoscopy to the terminal ileum with snare polypectomy. ESTIMATED BLOOD LOSS: COMPLICATIONS: ANESTHESIA: Monitored anesthesia care. ASSISTANTS: SPECIMENS: DESCRIPTION OF PROCEDURE: A history and physical was performed. The risks and benefits of the procedure were explained to the patient. Informed consent was obtained. The patient was placed in the left lateral decubitus position. A digital rectal exam was performed and was found to be normal. The Olympus pediatric video colonoscope was introduced into the rectum and advanced to the cecum. The cecum was identified by transillumination, palpation, and identification of ileocecal valve. Examination was performed. The scope was removed. She tolerated the procedure well and was returned to the recovery area in stable condition. FINDINGS: The terminal ileum was examined and appeared normal. The visualized colonic mucosa was normal. The quality of the prep was good. No active bleeding site was identified. There was a less than 5 mm sessile polyp in the right colon just above the ileocecal valve, which was removed with a cold snare and recovered via suction. No other polyps were identified. There was mild sigmoid diverticulosis. Retroflexed examination showed a small to moderate-sized internal hemorrhoids. IMPRESSION: Colon polyp. RECOMMENDATION: 1. Follow up the biopsy results. 2. She may restart Eliquis as needed. 3. Monitor hematocrit and advance diet. MD ANDI Kaba/KEHINDEL / [id number]
[2023-07-22 03:31] VITALS: BP 152/67; PULSE 80; RESP 19; TEMP 36.3; O2SAT 90
[2023-07-22] MEDS: Omeprazole 20 MG CAPSULE.DR PO (05:55)
[2023-07-22] MEDS: Levothyroxine Sodium 50 MCG TABLET PO (05:55)
[2023-07-22 07:32] VITALS: BP 124/57; PULSE 80; RESP 20; TEMP 36.5; O2SAT 94
[2023-07-22 07:39] LABS: Glucose, Whole Blood 261 mg/dL (60-115)
[2023-07-22] MEDS: Apixaban 5 MG TABLET PO (08:48)
[2023-07-22] MEDS: Insulin Lispro 100 UNIT/ML 3 ML VIAL SUBCUT ×2 (08:48→11:46)
[2023-07-22] MEDS: Escitalopram Oxalate 10 MG TABLET PO (08:48)
[2023-07-22] MEDS: Folic Acid 1 MG TABLET PO (08:48)
[2023-07-22] MEDS: Acetaminophen 325 MG TABLET 650 MG PO (09:02)
[2023-07-22 11:02] VITALS: BP 125/59; PULSE 84; RESP 20; TEMP 36.6; O2SAT 97
[2023-07-22 11:09] LABS: Glucose, Whole Blood 379 mg/dL (60-115)
--- NOTE | 2023-07-22 11:35 | PM.DS ---
DS: Providers Provider Date of Service: 07/22/23 Date of admission: 07/20/23 01:26 Primary care physician: Aydin Leo MD Consults: 07/20/23 01:26 Consult to Gastroenterology Routine Consulting Provider: Johnny Yang Reason for consultation: GI bleed DS: Diagnosis Discharge Diagnosis (1) Acute GI bleeding: Status: Resolved (2) Anemia: Status: Acute DS: Summary Hospital Course Hospital Course: Chief Complaint: Syncope and fall This is a 72-year-old female with pertinent history of asthma/COPD overlap syndrome, mood disorder, insulin-dependent diabetes mellitus, hypothyroidism, essential hypertension, history of PE on Eliquis, mixed hyperlipidemia who presents to the emergency department for evaluation of syncope and fall. Patient states while got up to wear her socks and shoes, she got dizzy/lightheaded and passed out. Patient thinks she was passed out for a minute. Patient's roommate called the ambulance and she was brought to the ER. Denies note palpitations prior to the episode of passing out. No rhythmic jerking movement of extremities. No tongue bite or bowel or bladder incontinence. Patient states she has been having bloody bowel movements and Eliquis has been on hold for the last 48 hours. Despite Eliquis being on hold, patient continues to have painless bloody bowel movements. On abdominal discomfort, nausea, vomiting. Patient denies fever, chills, chest discomfort, palpitations, shortness of breath, changes in urinary habits. Hospital coures: patient presented with a syncopal episode as described above. She report having been having bloody bowel movement. She was hemodynamically stable on presentation. Initial hemoglobin was 8 and hematocrit of 25. She was not transfused. She was positive for orthostatics which was likely cause of syncope. Eliquis was on hold and the patient was evaluated by GI and ultimately underwent colonoscopy which showed no source of bleed. Most recent hemoglobin is 9.6 and hematocrit of 30. She is hemodynamically stable GI advises that she can resume Eliquis. She has no lightheadedness, no arrhythmia was noted on the monitor. To resume all other medications. Final diagnosis: 1 acute blood loss anemia 2 GI bleeding 3. syncope 4. orthostatic hypotension Time Spent with Patient Time attestation: Total time managing care of this patient today ____ minutes. Discharge coordination time: Greater than 30 minutes Quality: Safe Use of Opioids Does Pt have an Active Cancer Diagnosis on the Problem List?: No Quality: Stroke Does the patient have a stroke diagnosis?: No Physical Exam Vital Signs: Vital Signs: Last Vital Signs Temp 97.8 F 07/22/23 11:02 Pulse 84 07/22/23 11:02 Resp 20 07/22/23 11:02 BP 125/59 L 07/22/23 11:02 Pulse Ox 97 07/22/23 11:02 O2 Del Method Room Air 07/22/23 11:02 O2 Flow Rate 2 07/21/23 08:00 BMI result Body Mass Index 43.4 DS: Data Data Completed and Pending Completed studies during hospitalization [Text1]: Procedures Insertion of Infusion Device into Superior Vena Cava, Percutaneous Approach (06/01/23) Ultrasonography of Superior Vena Cava, Guidance (06/01/23) Pending studies at discharge: Pending at discharge 07/21/23 14:47 Surgical [PTH] Routine Labs on day of discharge: Laboratory Results - last 24 hr 07/21/23 07/21/23 07/21/23 11:55 13:31 16:41 POC Glucose 194 H 176 H 175 H 07/21/23 07/22/23 07/22/23 19:27 07:36 11:04 POC Glucose 279 H 261 H 379 H* Discharge Plan Discharge Anticipated Discharge Date/Time: 07/22/23 11:32 Patient Disposition: Home, Self-Care Discharge Diagnosis: GI bleeding, acute blood loss anemia, syncope. Referrals: Aydin Leo MD [Primary Care Provider] - 1 Week Discharge Medications: Continued levothyroxine 50 mcg tablet 50 mcg PO DAILY@0600 montelukast 10 mg tablet 10 mg PO BEDTIME Eliquis 5 mg tablet 5 mg PO BID albuterol sulfate 90 mcg/actuation HFA aerosol inhaler 2 puff INHALATION Q4H PRN (Reason: Shortness Of Breath Or Wheezing) citalopram 20 mg tablet 20 mg PO DAILY albuterol sulfate 2.5 mg /3 mL (0.083 %) solution for nebulization 2.5 mg inhalation Q4H PRN (Reason: asthma) calcium carbonate-vitamin D3 600 mg-5 mcg (200 unit) Tablet 1 tab PO DAILY ferrous sulfate 325 mg (65 mg iron) Tablet 325 mg PO DAILY furosemide 20 mg tablet 20 mg PO DAILY insulin glargine [Basaglar KwikPen U-100 Insulin] 100 unit/mL (3 mL) insulin pen 34 unit subcut DAILY acetaminophen 325 mg Tablet 650 mg PO Q4H PRN (Reason: Fever Or Pain) fluticasone propion-salmeterol [Advair Diskus] 100-50 mcg/dose Blister With Device 1 inh INHALATION BID docusate sodium 100 mg Capsule 100 mg PO BID folic acid 1 mg tablet 1 mg PO DAILY insulin lispro 100 unit/mL Solution 1 sliding scale dose SUBCUT TIDAC Protocol: Insulin Correction Scale Less than or equal to 110 ---- Give (units): 0 111 to 150 Give (units): 0 151 to 200 Give (units): 2 201 to 250 Give (units): 4 251 to 300 Give (units): 6 301 to 350 Give (units): 8 Greater than 350 Give (units): 10 Call MD if Blood Glucose > : 350 ondansetron 4 mg Tablet,Disintegrating 4 mg PO Q6H PRN (Reason: Nausea And Vomiting) pantoprazole 40 mg Tablet,Delayed Release (Dr/Ec) 40 mg PO BID Preparation H 0.25-14-74.9 % Ointment 1 appl [place] BID PRN (Reason: for bleeding hemorrhoid) Rx Instructions: only for use 07/18/23 through 07/20/23 Discharge Orders: Discharge Order (Routine); Ordered 07/22/23 Ordered By: Sourav Mota Diet: Advance to usual diet Activity on Discharge: As tolerated Stand Alone Forms: Patient Portal Discharge page Care Plan Goals: Full recovery from syncope. Health Concerns: Anemia, GI bleed, syncope Plan of Treatment: resume all your medication at before, drink plenty of fluid. Follow-up with your primary care physician Assessment: as above Discharge Date/Time: 07/22/23 13:30
--- NOTE | 2023-07-22 12:22 | MHC.CM.PN ---
PER MD ROUNDS PT MEDICALLY CLEARED FOR DC, RETURN HOME NO SERVICES. PTS SISTER WILL PROVIDE TRANSPORTATION AT 12:45PM. RN AND PATIENT AWARE.
== END 2023-07-22 13:30 | disposition home or self-care (01) ==
LOC: HO.ED 07-20 01:12 → HO.EDOVER 07-20 01:30 → HO.IMC 07-21 05:57
PROVIDERS: Internal Medicine Gastroenterology; Admitting Provider Student in an Organized Health Care Education/Training Program; Emergency Provider Emergency Medicine; PCP Internal Medicine; Visit Provider Internal Medicine
PROC: 0DJD8ZZ Inspection of Lower Intestinal Tract, Via Natural or Artificial Opening Endoscopic (ICD-10-PCS; CPT 45378; principal; 2023-07-21 14:10)
DX: D62 Acute posthemorrhagic anemia (principal); K92.2 Gastrointestinal hemorrhage, unspecified; I95.1 Orthostatic hypotension; D12.6 Benign neoplasm of colon, unspecified; R07.9 Chest pain, unspecified; M54.2 Cervicalgia; J44.89 Other specified chronic obstructive pulmonary disease; E11.65 Type 2 diabetes mellitus with hyperglycemia; I10 Essential (primary) hypertension; E78.2 Mixed hyperlipidemia; E03.9 Hypothyroidism, unspecified; Z79.4 Long term (current) use of insulin; Z86.711 Personal history of pulmonary embolism; Z79.01 Long term (current) use of anticoagulants; Z79.899 Other long term (current) drug therapy
CPT/HCPCS: 45385; 36415; 70450; 72125; 80048; 82272; 82947; 84484; 85025; 85027; 86850; 86900; 86901; 88305; 93005; 96361; 96372; 96374; 99222; 99285; J2371

== ENCOUNTER → 2023-07-20 01:26 | Outpatient (BNV) | payer MEDICARE, SELFPAY | PROVIDERS: Admitting Provider Student in an Organized Health Care Education/Training Program; Emergency Provider Emergency Medicine; PCP Internal Medicine; Visit Provider Student in an Organized Health Care Education/Training Program | DX: K92.2 Gastrointestinal hemorrhage, unspecified (principal); D64.9 Anemia, unspecified | CPT/HCPCS: 99222; 99232; 99239; 99499 ==

== ENCOUNTER 2023-07-26 13:37 | Outpatient (RCR) | payer MEDICARE, SELFPAY | END 2023-11-12 17:00 | disposition home or self-care (01) | LOC: HO.WCC 13:37 | PROVIDERS: PCP Internal Medicine; Visit Provider Surgery | DX: Z09 Encounter for follow-up examination after completed treatment for conditions other than malignant neoplasm (principal); Q82.0 Hereditary lymphedema; E65 Localized adiposity; E66.2 Morbid (severe) obesity with alveolar hypoventilation; E11.9 Type 2 diabetes mellitus without complications; I10 Essential (primary) hypertension; Z86.711 Personal history of pulmonary embolism; Z87.2 Personal history of diseases of the skin and subcutaneous tissue | CPT/HCPCS: 11042; 17250; 97597; 99212; 99213 ==

== ENCOUNTER 2023-11-22 16:10 | Inpatient (IN) | payer MEDICARE, SELFPAY ==
--- NOTE | ~2023-11-22 | XR_ITS ---
EXAMINATION: PORTABLE CHEST 1 VIEW CLINICAL INFORMATION: sob, copd/asthma. COMPARISON: 02/19/2023. TECHNIQUE: Portable frontal view of the chest was obtained. FINDINGS: Lungs well-expanded. There is new retrocardiac opacity obscuring the left hemidiaphragm and to less extent the left heart border. Tiny layering left effusion would be possible. Mild central vascular prominence but no overt edema. No pneumothorax. Visualized cardiac silhouette otherwise within normal limits for size. No acute bony abnormality. XR/XR chest 1V IMPRESSION: New left basilar opacity obscuring the left hemidiaphragm and to a lesser extent the left heart border. Infectious or inflammatory etiologies suspected. Tiny layering left effusion would be possible.
--- NOTE | 2023-11-22 16:34 | ECG_ITS ---
Test Reason : SOB Blood Pressure : / mmHG Vent. Rate : 091 BPM Atrial Rate : 091 BPM P-R Int : 196 ms QRS Dur : 082 ms QT Int : 380 ms P-R-T Axes : 073 -03 062 degrees QTc Int : 467 ms Sinus rhythm with Premature supraventricular complexes Septal infarct (cited on or before 20-JAN-2023) Abnormal ECG When compared with ECG of 19-JUL-2023 21:58, Premature supraventricular complexes are now Present Questionable change in initial forces of Anterior leads Referred By: Mary Mares Electronically Signed By:Gopi Rodriguez
--- NOTE | 2023-11-22 16:35 | ED.GENADULT ---
HPI - General Adult General Chief complaint: Dyspnea Stated complaint: SOB X2 DAYS GETTING WORSE.RA93% Time Seen by Provider: 11/22/23 16:19 Source: patient and EMS Mode of arrival: EMS Limitations: no limitations History of Present Illness HPI narrative: Patient comes to the emergency room via ambulance from home. According to EMS, the patient's family called because the patient has been short of breath for about 2 days. When they arrived, patient's oxygen saturation was in the low 90s. Patient was giving to updraft/DuoNebs and 125 mg of Solu-Medrol. Patient was diffusely wheezing. When patient arrived to emergency room, patient states that she does feel better. Patient denies any fever or chills. Related Data Home Medications Medication Instructions Recorded Confirmed albuterol sulfate 2.5 mg/3 mL 2.5 mg inhalation Q4H PRN asthma 01/20/23 07/20/23 (0.083 %) solution for nebulization albuterol sulfate 90 mcg/actuation 2 puff inhalation Q4H PRN 01/20/23 07/20/23 aerosol inhaler Shortness Of Breath Or Wheezing apixaban 5 mg tablet (Eliquis) 5 mg PO BID 01/20/23 07/20/23 calcium carbonate 600 mg-vitamin 1 tab PO DAILY 01/20/23 07/20/23 D3 5 mcg (200 unit) tablet citalopram 20 mg tablet 20 mg PO DAILY 01/20/23 07/20/23 ferrous sulfate 325 mg (65 mg 325 mg PO DAILY 01/20/23 07/20/23 iron) tablet levothyroxine 50 mcg tablet 50 mcg PO DAILY@0600 01/20/23 07/20/23 montelukast 10 mg tablet 10 mg PO BEDTIME 01/20/23 07/20/23 furosemide 20 mg tablet 20 mg PO DAILY 06/01/23 07/20/23 insulin glargine 100 unit/mL (3 34 unit subcut DAILY 06/01/23 07/20/23 mL) subcutaneous pen (Basaglar KwikPen U-100 Insulin) acetaminophen 325 mg tablet 650 mg PO Q4H PRN Fever Or Pain 07/20/23 07/20/23 docusate sodium 100 mg capsule 100 mg PO BID 07/20/23 07/20/23 folic acid 1 mg tablet 1 mg PO DAILY 07/20/23 07/20/23 insulin lispro 100 unit/mL 1 sliding scale dose subcut TIDAC 07/20/23 07/20/23 subcutaneous solution ondansetron 4 mg disintegrating 4 mg PO Q6H PRN Nausea And Vomiting 07/20/23 07/20/23 tablet pantoprazole 40 mg tablet,delayed 40 mg PO BID ulcers 07/20/23 07/20/23 release phenylephrine 0.25 %-mineral oil 1 appl ND BID PRN for bleeding 07/20/23 07/20/23 14 %-petrolatm 74.9 % rectal hemorrhoid ointment (Preparation H) adalimumab 40 mg/0.8 mL 0.8 subcut Q2W 11/22/23 subcutaneous syringe kit (Humira) fluoxetine 20 mg capsule 20 mg PO DAILY 11/22/23 fluticasone 500 mcg-salmeterol 50 1 ea inhalation BID 11/22/23 mcg/dose blistr powdr for inhalation (Wixela Inhub) insulin aspart U-100 100 unit/mL 40 unit subcut TID 11/22/23 (3 mL) subcutaneous pen (Novolog FlexPen U-100 Insulin aspart) insulin regular human 100 unit/mL 40 unit subcut TID 11/22/23 (3 mL) subcutaneous pen (Novolin R FlexPen) methotrexate (PF) 25 mg/0.5 mL 25 mg subcut QWEEK 11/22/23 subcutaneous auto-injector (Rasuvo (PF)) simvastatin 20 mg tablet 20 mg PO DAILY 11/22/23 Allergies Allergy/AdvReac Type Severity Reaction Status Date / Time rosuvastatin [From CRESTOR] Allergy Unknown Unknown Verified 04/15/23 14:07 empagliflozin Allergy Unknown Verified 05/31/23 17:17 [From Jardiance] piperacillin [From Zosyn] AdvReac Intermediate Vomiting Verified 05/31/23 19:29 tazobactam [From Zosyn] AdvReac Intermediate Vomiting Verified 05/31/23 19:29 Review of Systems Review of Systems: Constitutional : No Weight loss, No Fever, No Chills, No Night Sweats, No Fatigue, No Malaise ENT/Mouth : No Hearing loss, No Ear Pain, No Nasal Congestion, No Sinus Pain, No Hoarseness, No sore throat, No Rhinorrhea, No Swallowing Difficulty Eyes: No Eye Pain, No Swelling, No Redness, No Foreign Body, No Discharge, No Vision Changes Cardiovascular : No Chest Pain, No SOB, No Dyspnea on Exertion, No Orthopnea, No Edema, No Palpitations Respiratory : Complaining of cough, wheezing, shortness of breath Gastrointestinal : No Nausea, No Vomiting, No Diarrhea, No Constipation, No abdominal Pain, No Hematochezia, No Melena Genitourinary : no irregular bleeding, No Dysuria, No Urinary Frequency, No Hematuria, No Urinary Incontinence, No Urgency, No Flank Pain, No Urinary Flow Changes, No Hesitancy Musculoskeletal : No joint pain, No Myalgias, No Joint Swelling Skin : No Skin Lesions, No rash Neuro : No Weakness, No Numbness, No Paresthesias, No Loss of Consciousness, No Dizziness, No Headache Psych : No Anxiety/Panic, No Depression, No SI/HI/AH/VH, No Social Issues, Heme/Lymph: No Bruising, No Bleeding,No Lymphadenopathy Endocrine : No Polyuria, No Polydipsia, No Temperature Intolerance [facility] Past Medical History Medical History Bacteremia Morbid (severe) obesity due to excess calories Asthma-COPD overlap syndrome Hypothyroidism Pulmonary embolism Depression Hyperlipidemia Rheumatoid arthritis Hypertension Diabetes mellitus, type 2 Social History Social History Household Members: Family Housing: House Do you presently have visiting nurse or other home services: No Alcohol intake: never Patient Tobacco Use Status: Never used Tobacco Advance Directives: Yes Advance Directives on File: Yes Advance Directives Date on File: 06/07/23 service: No Current occupational status: disabled Physical Exam ED Vital Signs: Vital Signs - 24 hr 11/22/23 16:48 11/22/23 17:01 Temperature 98.3 F Pulse Rate 89 88 Respiratory Rate 28 H 12 Blood Pressure 146/49 H 146/49 H Pulse Oximetry 96 96 Oxygen Delivery Method Nasal Cannula with ETCO2 Room Air BMI result Body Mass Index 44.3 Const Other: Appearance: Alert. Oriented X3. No acute distress. Eyes: Pupils equal, round and reactive to light. ENT: Pharynx normal. Neck: Normal inspection. Neck supple. No lymph nodes noted. No crepitus CVS: Normal heart rate and rhythm. Pulses normal. Normal S1 and S2 Respiratory: No respiratory distress. Bilateral wheezing, no crackles Abdomen: Soft and nontender. No rigidity. No distention. Skin: Skin warm and dry. Normal skin color. Normal skin turgor. Extremities: No lower extremity edema. No Lacerations. No Rash Neuro: Oriented X 3. No motor deficit. No sensory deficit. Moving all extremities. No slurred speech. CN 2 through 12 grossly intact Psych: calm, cooperative, normal affect Medical Decision Making Medical Decision Making [facility] Narrative: -empirically, patient was treated with IV fluids based on an ideal weight of 50 kg, patient is obese. Patient was also given IV ceftriaxone azithromycin, patient allergic to Zosyn. -at this time, 19:09, patient's labs have become available. -My interpretation of labs, normal white blood cell count., coagulation at baseline, pCO2 46, no significant electrolyte abnormalities, lactic acid 2.7, likely secondary to multiple DuoNeb and nebulization treatments prior to arrival. Patient's LFTs have chronically been elevated, sepsis is not suspected -patient's blood pressure stable, no episodes of hypotension, no tachycardia -patient is on 2 L nasal cannula, saturating in the mid 90s. -patient gets significantly dyspneic with minimal exertion. -I discussed the patient with Dr. Cardoza, patient being admitted. Differential Diagnosis Differential Diagnoses: The differential diagnosis associated with the presentation includes (Asthma, chronic lung disease, pneumonia, COVID) Admission/Observation Consideration of admission/observation: Escalation of care including admission/observation considered Consult Healthcare Provider Management of the patient was discussed with: Hospitalist Lab Data [facility] Lab Attestation statement: I reviewed the patient's lab results. 11/22/23 17:18 11/22/23 17:18 Labs: Lab Results 11/22/23 11/22/23 Range/Units 17:18 17:22 WBC 6.3 (4.8-10.8) X10*3/uL RBC 3.52 L (4.20-5.50) X10*6/uL Hgb 10.8 L (12.0-16.0) g/dl Hct 33.7 L (37.0-47.0) % MCV 95.7 (80.0-98.0) fL MCH 30.7 (27.0-33.0) pg MCHC 32.0 (31.0-35.0) g/dl RDW 17.3 H (11.0-16.0) % Plt Count 169 (160-400) X10*3/uL MPV 10.8 (9.4-12.3) fL Immature Gran % (Auto) 0.3 (0.0-0.4) % Neut % (Auto) 62.6 (45-73) % Lymph % (Auto) 11.9 L (20-40) % Clarke % (Auto) 17.8 H (2-11) % Eos % (Auto) 6.4 H (0-4) % Baso % (Auto) 1.0 (0-2) % Lymph # (Auto) 0.8 L (1.2-4.9) X10*3/uL Clarke # (Auto) 1.1 (0.1-1.2) X10*3/uL Eos # (Auto) 0.4 (0.0-0.4) X10*3/uL Baso # (Auto) 0.1 (0.0-0.2) X10*3/uL Abs Immat Gran (auto) 0.02 (0.00-0.03) X10*3/uL Absolute Neuts (auto) 3.9 (2.0-8.3) x10*3/uL Absolute Nucleated RBC 0.000 (0.0-0.012) X10*3/uL Nucleated RBC % (auto) 0.0 (0.0-0.2) /100WBC PT 15.8 H (11.1-13.3) SEC INR 1.3 H (0.9-1.1) VBG pH 7.44 H (7.32-7.43) VBG pCO2 46 mmHg VBG pO2 44 mmHg VBG HCO3 31 H (22-26) mmol/L VBG O2 Saturation 69.0 % VBG Base Excess 6.8 mmol/L Sodium 138 (135-145) mmol/L Potassium 3.9 (3.3-5.1) mmol/L Chloride 103 (96-108) mmol/L Carbon Dioxide 27 (22-29) mmol/L Anion Gap 12 (12-20) BUN 22 H (9-16) mg/dL Creatinine 0.95 (0.5-1.4) mg/dL Estim Creat Clear Calc 63.9 Estimated GFR 58 Random Glucose 156 H (60-115) mg/dL Lactic Acid 2.7 H* (0.5-2.0) mmol/L Calcium 9.6 D (8.4-10.2) mg/dL Total Bilirubin 1.2 H (0.0-1.0) mg/dL Direct Bilirubin 0.6 H (0.0-0.5) mg/dL AST 106 H (5-31) U/L ALT 41 H (0-31) U/L Alkaline Phosphatase 140 H (39-117) U/L Troponin I High Sens 25.0 H (<3.5-17.0) ng/L B-Natriuretic Peptide 134 H (<100) pg/mL Total Protein 7.6 (6.5-8.0) g/dL Albumin 3.0 L (3.5-5.0) g/dL COVID-19 (KATHERIN) Negative (Negative) COVID-19 Clin Com See Note Influenza Type A (JUNG) Negative (Negative) Influenza Type B (JUNG) Negative (Negative) Influenza A & B Note See Note Independent Interpretation I performed an independent interpretation of an: EKG (My interpretation of EKG: Normal sinus rhythm, heart rate 91, no ST segment depression or elevation, no T-wave inversion, QTC 467) and Plain X-Ray Radiology Impression Discussion of test interpretation with radiology: I have reviewed the radiologist's reading. Radiologist Impression: FINDINGS: Lungs well-expanded. There is new retrocardiac opacity obscuring the left hemidiaphragm and to less extent the left heart border. Tiny layering left effusion would be possible. Mild central vascular prominence but no overt edema. No pneumothorax. Visualized cardiac silhouette otherwise within normal limits for size. No acute bony abnormality. XR/XR chest 1V IMPRESSION: New left basilar opacity obscuring the left hemidiaphragm and to a lesser extent the left heart border. Infectious or inflammatory etiologies suspected. Tiny layering left effusion would be possible. Critical Care Time Critical Care Time Critical Care Time: Yes Total Critical Care Time: 75 Attestation: I have personally provided critical care time. Time includes review of lab data, radiology results, discussion with consultants, and monitoring for potential decompensation. Intervention performed as documented. Discharge Plan Discharge Clinical Impression: Pneumonia, Asthma Patient Disposition: Admitted As Inpatient Prescriptions: No Action levothyroxine 50 mcg tablet 50 mcg PO DAILY@0600 montelukast 10 mg tablet 10 mg PO BEDTIME Eliquis 5 mg tablet 5 mg PO BID albuterol sulfate 90 mcg/actuation HFA aerosol inhaler 2 puff INHALATION Q4H PRN (Reason: Shortness Of Breath Or Wheezing) citalopram 20 mg tablet 20 mg PO DAILY albuterol sulfate 2.5 mg /3 mL (0.083 %) solution for nebulization 2.5 mg inhalation Q4H PRN (Reason: asthma) calcium carbonate-vitamin D3 600 mg-5 mcg (200 unit) Tablet 1 tab PO DAILY ferrous sulfate 325 mg (65 mg iron) Tablet 325 mg PO DAILY simvastatin 20 mg tablet 20 mg PO DAILY fluticasone propion-salmeterol [Wixela Inhub] 500-50 mcg/dose blister with device 1 ea inhalation BID fluoxetine 20 mg capsule 20 mg PO DAILY Novolin R FlexPen 100 unit/mL (3 mL) insulin pen 40 unit subcut TID Humira 40 mg/0.8 mL syringe kit 0.8 subcut Q2W insulin aspart U-100 [Novolog FlexPen U-100 Insulin] 100 unit/mL (3 mL) insulin pen 40 unit subcut TID Rasuvo (PF) 25 mg/0.5 mL auto-injector 25 mg subcut QWEEK furosemide 20 mg tablet 20 mg PO DAILY insulin glargine [Basaglar KwikPen U-100 Insulin] 100 unit/mL (3 mL) insulin pen 34 unit subcut DAILY acetaminophen 325 mg Tablet 650 mg PO Q4H PRN (Reason: Fever Or Pain) docusate sodium 100 mg Capsule 100 mg PO BID folic acid 1 mg tablet 1 mg PO DAILY insulin lispro 100 unit/mL Solution 1 sliding scale dose SUBCUT TIDAC Protocol: Insulin Correction Scale Less than or equal to 110 ---- Give (units): 0 111 to 150 Give (units): 0 151 to 200 Give (units): 2 201 to 250 Give (units): 4 251 to 300 Give (units): 6 301 to 350 Give (units): 8 Greater than 350 Give (units): 10 Call MD if Blood Glucose > : 350 ondansetron 4 mg Tablet,Disintegrating 4 mg PO Q6H PRN (Reason: Nausea And Vomiting) pantoprazole 40 mg Tablet,Delayed Release (Dr/Ec) 40 mg PO BID Preparation H 0.25-14-74.9 % Ointment 1 appl ND BID PRN (Reason: for bleeding hemorrhoid) Rx Instructions: only for use 07/18/23 through 07/20/23
[2023-11-22 16:48] VITALS: BP 146/49; PULSE 89; RESP 28; TEMP 36.8; O2SAT 96
[2023-11-22 17:01] VITALS: BP 146/49; BP 155/96; PULSE 83; PULSE 88; RESP 12; O2SAT 91; O2SAT 96; BMI 44.3
[2023-11-22 17:24] LABS: MANUAL DIFF FLAG NO
[2023-11-22 17:26] LABS: Basophils Absolute Auto 0.1 X10*3/uL (0.0-0.2); Eosinophils Absolute Auto 0.4 X10*3/uL (0.0-0.4); Eosinophils Percent Auto 6.4 % (0-4); Hematocrit 33.7 % (37.0-47.0); Hemoglobin 10.8 g/dl (12.0-16.0); Imm Gran Abs Auto 0.02 X10*3/uL (0.00-0.03); Imm Gran Pct Auto 0.3 % (0.0-0.4); Lymphocytes Absolute Auto 0.8 X10*3/uL (1.2-4.9); Lymphocytes Percent Auto 11.9 % (20-40); Mean Corpuscular Hemoglobin 30.7 pg (27.0-33.0); Mean Corpuscular Volume 95.7 fL (80.0-98.0); Mean Platelet Volume 10.8 fL (9.4-12.3); Monocytes Absolute Auto 1.1 X10*3/uL (0.1-1.2); Monocytes Percent Auto 17.8 % (2-11); Neutrophils Absolute Auto 3.9 x10*3/uL (2.0-8.3); Neutrophils Percent Auto 62.6 % (45-73); Platelet Count 169 X10*3/uL (160-400); Red Blood Count 3.52 X10*6/uL (4.20-5.50); Red Cell Distribution Width 17.3 % (11.0-16.0); White Blood Count 6.3 X10*3/uL (4.8-10.8)
[2023-11-22 17:29] LABS: VBG Base Excess 6.8 mmol/L; VBG HCO3 31 mmol/L (22-26); VBG pCO2 46 mmHg; VBG pH 7.44 (7.32-7.43); VBG pO2 44 mmHg
[2023-11-22 17:32] LABS: INTERNATIONAL NORM RATIO 1.3 (0.9-1.1); Prothrombin Time 15.8 SEC (11.1-13.3)
[2023-11-22 17:36] LABS: Venous Blood Gas Refer to POC result
[2023-11-22 17:46] LABS: Alanine Aminotransferase 41 U/L (0-31); Alkaline Phosphatase 140 U/L (39-117); Anion Gap 12 (12-20); Aspartate Amino Transferase 106 U/L (5-31); Bilirubin Direct 0.6 mg/dL (0.0-0.5); Bilirubin Total 1.2 mg/dL (0.0-1.0); Blood Urea Nitrogen 22 mg/dL (9-16); Calcium 9.6 mg/dL (8.4-10.2); Carbon Dioxide 27 mmol/L (22-29); Chloride 103 mmol/L (96-108); Creatinine Clr Calc Pharmacy 63.9; Estimated Glomerular Filt Rate 58; Glucose Random 156 mg/dL (60-115); Potassium 3.9 mmol/L (3.3-5.1); Sodium 138 mmol/L (135-145); Total Protein 7.6 g/dL (6.5-8.0)
[2023-11-22 17:47] LABS: Lactic Acid 2.7 mmol/L (0.5-2.0)
[2023-11-22 17:50] LABS: B Type Natriuretic Peptide 134 pg/mL (<100)
[2023-11-22 18:00] LABS: COVID-19 Test Negative (Negative); IDNOW Serial# 08D9AD1C; IDNOW Serial# 152EDE1D; Influenza A Negative (Negative); Influenza B2 Negative (Negative)
[2023-11-22 19:23] LABS: Reflex Lactate? Lactic Acid Added
--- NOTE | 2023-11-22 19:29 | PM.IMHP ---
History of Present Illness Date of Service: 11/22/23 Chief Complaint: Dyspnea This is a 73-year-old female with pertinent history of asthma/COPD overlap syndrome not on home oxygen, mood disorder, insulin-dependent diabetes mellitus, hypothyroidism, essential hypertension, history of PE on Eliquis, mixed hyperlipidemia who presents to the emergency department for evaluation of dyspnea. Patient states her symptoms started 2 days prior to presentation. She has been having dyspnea which is worse with exertion. Also has associated productive cough. Patient endorses wheezing. No orthopnea or PND. States she does not use oxygen at home. No relief with home inhaler. Unknown fever or chills. No chest discomfort, palpitations, abdominal pain, changes in urinary or bowel habits. In the emergency department, patient was found to be hypoxemic and imaging with left-sided infiltrate Review of Systems Constitutional: Constitutional: Reports lethargy and Reports weakness Cardiovascular: Cardiovascular: Reports dyspnea on exertion Respiratory: Respiratory: Reports cough, Reports dyspnea on exertion and Reports wheezing Gastrointestinal: Gastrointestinal: Reports no additional gastrointestinal complaints Genitourinary: Genitourinary: Reports no additional female genitourinary complaints Neurologic: Reports weakness Allergic/Immunologic: Allergic/Immunologic: Reports wheezing [facility] Medical History Bacteremia Morbid (severe) obesity due to excess calories Asthma-COPD overlap syndrome Hypothyroidism Pulmonary embolism Depression Hyperlipidemia Rheumatoid arthritis Hypertension Diabetes mellitus, type 2 Pertinent family history: No family history of early CAD Social History Household Members: Family Housing: House Do you presently have visiting nurse or other home services: No Alcohol intake: never Patient Tobacco Use Status: Never used Tobacco Advance Directives: Yes Advance Directives on File: Yes Advance Directives Date on File: 06/07/23 service: No Current occupational status: disabled Meds Allergies Allergy/AdvReac Type Severity Reaction Status Date / Time rosuvastatin [From CRESTOR] Allergy Unknown Unknown Verified 04/15/23 14:07 empagliflozin Allergy Unknown Verified 05/31/23 17:17 [From Jardiance] piperacillin [From Zosyn] AdvReac Intermediate Vomiting Verified 05/31/23 19:29 tazobactam [From Zosyn] AdvReac Intermediate Vomiting Verified 05/31/23 19:29 Active Medications: Current Medications Sodium Chloride (Ns) 2,000 mls @ 999 mls/hr IVCONT .Q2H1M ONE Stop: 11/22/23 21:07 Ceftriaxone Sodium 1 gm/ (Sodium Chloride) 50 mls @ 100 mls/hr IV ONCE ONE Stop: 11/22/23 19:38 Azithromycin 500 mg/ Sodium (Chloride) 250 mls @ 125 mls/hr IV ONCE ONE Stop: 11/22/23 21:08 Home Medications Medication Instructions Recorded Confirmed Last Taken Type albuterol sulfate 2.5 mg/3 mL 2.5 mg inhalation Q4H PRN asthma 01/20/23 07/20/23 Unknown History (0.083 %) solution for nebulization albuterol sulfate 90 mcg/actuation 2 puff inhalation Q4H PRN 01/20/23 07/20/23 01/19/23 History aerosol inhaler Shortness Of Breath Or Wheezing apixaban 5 mg tablet (Eliquis) 5 mg PO BID 01/20/23 07/20/23 01/19/23 History calcium carbonate 600 mg-vitamin 1 tab PO DAILY 01/20/23 07/20/23 01/19/23 History D3 5 mcg (200 unit) tablet citalopram 20 mg tablet 20 mg PO DAILY 01/20/23 07/20/23 01/19/23 History ferrous sulfate 325 mg (65 mg 325 mg PO DAILY 01/20/23 07/20/23 01/19/23 History iron) tablet levothyroxine 50 mcg tablet 50 mcg PO DAILY@0600 01/20/23 07/20/23 02/19/23 History montelukast 10 mg tablet 10 mg PO BEDTIME 01/20/23 07/20/23 01/19/23 History furosemide 20 mg tablet 20 mg PO DAILY 06/01/23 07/20/23 Unknown History insulin glargine 100 unit/mL (3 34 unit subcut DAILY 06/01/23 07/20/23 Unknown History mL) subcutaneous pen (Basaglar KwikPen U-100 Insulin) acetaminophen 325 mg tablet 650 mg PO Q4H PRN Fever Or Pain 07/20/23 07/20/23 Unknown History docusate sodium 100 mg capsule 100 mg PO BID 07/20/23 07/20/23 Unknown History folic acid 1 mg tablet 1 mg PO DAILY 07/20/23 07/20/23 Unknown History insulin lispro 100 unit/mL 1 sliding scale dose subcut TIDAC 07/20/23 07/20/23 Unknown History subcutaneous solution ondansetron 4 mg disintegrating 4 mg PO Q6H PRN Nausea And Vomiting 07/20/23 07/20/23 Unknown History tablet pantoprazole 40 mg tablet,delayed 40 mg PO BID ulcers 07/20/23 07/20/23 Unknown History release phenylephrine 0.25 %-mineral oil 1 appl NE BID PRN for bleeding 07/20/23 07/20/23 Unknown History 14 %-petrolatm 74.9 % rectal hemorrhoid ointment (Preparation H) adalimumab 40 mg/0.8 mL 0.8 subcut Q2W 11/22/23 Unknown History subcutaneous syringe kit (Humira) fluoxetine 20 mg capsule 20 mg PO DAILY 11/22/23 Unknown History fluticasone 500 mcg-salmeterol 50 1 ea inhalation BID 11/22/23 Unknown History mcg/dose blistr powdr for inhalation (Wixela Inhub) insulin aspart U-100 100 unit/mL 40 unit subcut TID 11/22/23 Unknown History (3 mL) subcutaneous pen (Novolog FlexPen U-100 Insulin aspart) insulin regular human 100 unit/mL 40 unit subcut TID 11/22/23 Unknown History (3 mL) subcutaneous pen (Novolin R FlexPen) methotrexate (PF) 25 mg/0.5 mL 25 mg subcut QWEEK 11/22/23 Unknown History subcutaneous auto-injector (Rasuvo (PF)) simvastatin 20 mg tablet 20 mg PO DAILY 11/22/23 Unknown History Physical Exam Vital Signs and Narrative: Vital Signs: Last Vital Signs Temp 98.3 F 11/22/23 16:48 Pulse 88 11/22/23 17:01 Resp 12 11/22/23 17:01 BP 146/49 H 11/22/23 17:01 Pulse Ox 96 11/22/23 17:01 O2 Del Method Room Air 11/22/23 17:01 BMI result Body Mass Index 44.3 Elderly female lying in bed in mild distress on supplemental oxygen Neck supple, no JVD Regular rate and rhythm, S1-S2 heard Bilateral wheezing with left-sided crackles Abdomen soft nontender, no guarding, no rigidity Patient is awake, alert and oriented to self, place, time and person ; no focal motor deficit Psych: Normal mood No pedal edema Results Labs 11/22/23 17:18 11/22/23 17:18 Labs: Laboratory Results - last 24 hr 11/22/23 11/22/23 17:18 17:22 MCV 95.7 MCH 30.7 MCHC 32.0 RDW 17.3 H Plt Count 169 MPV 10.8 Immature Gran % (Auto) 0.3 Neut % (Auto) 62.6 Lymph % (Auto) 11.9 [address] % (Auto) 17.8 H Eos % (Auto) 6.4 H Baso % (Auto) 1.0 Lymph # (Auto) 0.[address] # (Auto) 1.1 Eos # (Auto) 0.4 Baso # (Auto) 0.1 Abs Immat Gran (auto) 0.02 Absolute Neuts (auto) 3.9 Absolute Nucleated RBC 0.000 Nucleated RBC % (auto) 0.0 PT 15.8 H INR 1.3 H VBG pH 7.44 H VBG pCO2 46 VBG pO2 44 VBG HCO3 31 H VBG O2 Saturation 69.0 VBG Base Excess 6.8 Anion Gap 12 Estim Creat Clear Calc 63.9 Estimated GFR 58 Random Glucose 156 H Lactic Acid 2.7 H* Calcium 9.6 D Total Bilirubin 1.2 H Direct Bilirubin 0.6 H AST 106 H ALT 41 H Alkaline Phosphatase 140 H B-Natriuretic Peptide 134 H Total Protein 7.6 Albumin 3.0 L COVID-19 (KATHERIN) Negative COVID-19 Clin Com See Note Influenza Type A (JUNG) Negative Influenza Type B (UJNG) Negative Influenza A & B Note See Note Imaging Radiologist's Impressions: Impressions Chest X-Ray 11/22/23 16:45 IMPRESSION: New left basilar opacity obscuring the left hemidiaphragm and to a lesser extent the left heart border. Infectious or inflammatory etiologies suspected. Tiny layering left effusion would be possible. Assessment and Plan (1) Acute hypoxemic respiratory failure: Status: Acute (2) Community acquired pneumonia: Status: Acute Plan This is a 73-year-old female with pertinent history of asthma/COPD overlap syndrome not on home oxygen, mood disorder, insulin-dependent diabetes mellitus, hypothyroidism, essential hypertension, history of PE on Eliquis, mixed hyperlipidemia who presents to the emergency department for evaluation of dyspnea. #. Acute hypoxemic respiratory failure secondary to left-sided pneumonia leading to exacerbation of asthma/COPD overlap syndrome: Will admit patient with supplemental oxygen. Initiating empiric IV antibiotics. Sputum culture obtained. No sepsis. Initiating systemic steroids, scheduled and p.r.n. DuoNebs. Continue home inhaler. #. Lactic acidosis due to albuterol use. No sepsis #. Elevated transaminases and alkaline phosphatase: Appears chronic. Outpatient follow-up #. Normocytic anemia, chronic: Hemoglobin above transfusion threshold. #. Insulin-dependent diabetes mellitus: Initiating basal plus insulin regimen. #. Mood disorder. Continue home mood stabilizers #. Hypothyroidism. On Synthroid #. Essential hypertension. Continue antihypertensives #. Obesity: Counseled regarding diet and exercise Med rec pending DVT prophylaxis: Georges Full code Admit as inpatient and will require two night minimum hospital stay for supplemental oxygen (as above), which is not possible in a lesser acute setting. Quality Stroke Does the patient have a stroke diagnosis?: No VTE Prior VTE?: No VTE Risk Level:: Medical - moderate - high VTE Device Contraindication: Treatment Not Indicated VTE Drug Contraindication: N/A - Med Ordered
[2023-11-22] MEDS: 0.9 % Sodium Chloride 2,000 ML 999 ML IVCONT (20:24)
[2023-11-22] MEDS: methylPREDNISolone Sod Succ 40 MG/ML VIAL IVPUSH (20:28)
[2023-11-22] MEDS: Apixaban 5 MG TABLET PO (20:28)
[2023-11-22] MEDS: cefTRIAXone sodium 1 GM in 0.9 % Sodium Chloride 50 ML IV (20:28)
[2023-11-22] MEDS: Albuterol/Iprat 2.5/0.5MG 3 ML AMPUL.NEB INHALE (20:30)
[2023-11-22 20:31] VITALS: PULSE 89; RESP 20; O2SAT 94
[2023-11-22 20:36] LABS: ~Lactic Acid-LAB USE ONLY 2.7 mmol/L (0.5-2.0)
--- NOTE | 2023-11-22 21:09 | PHA.MEDREC ---
Pharmacy Consult ? Medication Reconciliation Pharmacy has completed the medication reconciliation. Patient's sister reported mediations. Reports no longer on fluoxetine and only on citalopram. She reported she is unsure why the pharmacy filled novolin r. For insulin patient is on basaglar 34 units in the AM and sliding scale Novolog. Report still giving patient lasix although no recent fill history. Amelia Crystal, PharmD
[2023-11-22] MEDS: Azithromycin 500 MG in 0.9 % Sodium Chloride 250 ML 125 MG IV (21:29)
[2023-11-22 22:09] LABS: Reflex Lactate? 2 Y
[2023-11-22 22:25] LABS: Glucose, Whole Blood 111 mg/dL (60-115)
--- NOTE | 2023-11-22 23:26 | PC.NURSE ---
late entry: pt a&o x4, pleasant, calm, and cooperative. pt came found sating low 90s, was placed on bipap by EMS, and then titrated down to room air sating 98%. pt now on 2L O2, sating low 90s. pt with hx COPD. 22G IV placed to pt's left upper arm. pt being admitted, on cardiac diet. provided with sunbutter and jelly sandwich, jello, cheese stick, and crackers. pt is DM. poc 111 with no insulin coverage. pt resting quietly on stretcher, all pt needs met soraya. call diaz within reach. plan of care ongoing. awaiting inpatient bed assignment. report given to PIPPA Bowles.
[2023-11-23] VITALS (10 sets, daily range): BP systolic 136–153; BP diastolic 59–66; PULSE 81–108; RESP 18–20; TEMP 36.2–37.1; O2SAT 92–98; BMI 43.6
[2023-11-23 01:04] LABS: ~Lactic Acid-LAB USE ONLY 2.1 mmol/L (0.5-2.0)
--- NOTE | 2023-11-23 01:17 | PC.NURSE ---
pt cleaned up and linens changed. ED admission report complete, pt awaiting transport up to med surg floor.
[2023-11-23 02:30] LABS: Glucose, Whole Blood 293 mg/dL (60-115)
[2023-11-23] MEDS: Acetaminophen 325 MG TABLET 650 MG PO (02:33)
[2023-11-23] MEDS: Insulin Lispro 100 UNIT/ML 3 ML VIAL SUBCUT ×5 (02:33→21:18)
[2023-11-23] MEDS: Levothyroxine Sodium 50 MCG TABLET PO (06:02)
[2023-11-23 06:54] LABS: MANUAL DIFF FLAG NO
--- NOTE | 2023-11-23 07:02 | HO.PM.IMPN ---
Subjective Subjective Date of Service: 11/23/23 Interval History: f/u on acute hypoxic respiratory failure d/t copd Still requiring O2 and wheezing Physical Exam Vital Signs: Vital Signs: Last Vital Signs Temp 97.8 F 11/23/23 04:00 Pulse 81 11/23/23 04:00 Resp 18 11/23/23 04:00 BP 136/61 11/23/23 04:00 Pulse Ox 96 11/23/23 05:09 O2 Del Method Nasal Cannula 11/23/23 05:09 O2 Flow Rate 2 11/23/23 05:09 BMI result Body Mass Index 43.6 General: AO X 3, no acute distress Resp: barby wheezing CVS: S1,S2,RRR GI: +BS, NT, no distention Skin: No rash Neuro: motor grossly intact Psych: appropriate affect Objective Data Active Medications Acetaminophen (Acetaminophen 325 Mg Tablet) 650 mg PO Q6H PRN PRN Reason: Pain, Mild (Pain Scale 1-3) Last Admin: 11/23/23 02:33 Dose: 650 mg Documented By: ADDI Albuterol/Ipratropium (Albuterol/Iprat 2.5/0.5mg 3 Ml Ampul.Neb) 3 ml INHALE RQ4H WHILE AWAKE REPLACED BY [facility] Last Admin: 11/22/23 20:30 Dose: 3 ml Documented By: JOAN Albuterol/Ipratropium (Albuterol/Iprat 2.5/0.5mg 3 Ml Ampul.Neb) 3 ml INHALE Q4H PRN PRN Reason: Wheezing Apixaban (Apixaban 5 Mg Tablet) 5 mg PO BID REPLACED BY [facility] Calcium Carbonate/Cholecalciferol (Calcium + Vitamin D 250 Mg Tablet) 500 mg PO DAILY REPLACED BY [facility] Dextrose (Dextrose 50 % 25 Gm/50 Ml Syringe) 25 gm IVPUSH Q15M PRN; Protocol PRN Reason: per Hypoglycemia Standing Ord. Docusate Sodium (Docusate Sodium 100 Mg Capsule) 100 mg PO BID REPLACED BY [facility] Escitalopram Oxalate (Escitalopram Oxalate 10 Mg Tablet) 10 mg PO DAILY REPLACED BY [facility] Ferrous Sulfate (Ferrous Sulfate 324 Mg Tablet.Dr) 324 mg PO DAILY REPLACED BY [facility] Fluticasone/Vilanterol (Fluticasone/Vilanterol 200/25 Blst.W.Dev) 1 puff INHALE RDAILY REPLACED BY [facility] Folic Acid (Folic Acid 1 Mg Tablet) 1 mg PO DAILY REPLACED BY [facility] Furosemide (Furosemide 20 Mg Tablet) 20 mg PO DAILY REPLACED BY [facility]; Protocol Glucose (Glucose Gel 15 Gm Gel..Gram.) 15 gm PO Q15M PRN; Protocol PRN Reason: per Hypoglycemia Standing Ord. Ceftriaxone Sodium 1 gm/ (Sodium Chloride) 50 mls @ 100 mls/hr IV Q24H GIOVANNI Azithromycin 500 mg/ Sodium (Chloride) 250 mls @ 125 mls/hr IV Q24H REPLACED BY [facility] Insulin Glargine (Insulin Glargine,Hum.Rec.Anlog 100 Unit/Ml 10 Ml Vial) 30 unit SUBCUT DAILY REPLACED BY [facility] Insulin Human Lispro (Insulin Lispro 100 Unit/Ml 3 Ml Vial) 0 unit SUBCUT QIDACHS REPLACED BY [facility]; Protocol Last Admin: 11/23/23 02:33 Dose: 6 unit Documented By: ADDI Levothyroxine Sodium (Levothyroxine Sodium 50 Mcg Tablet) 50 mcg PO DAILY@0600 REPLACED BY [facility] Last Admin: 11/23/23 06:02 Dose: 50 mcg Documented By: ADDI Melatonin (Melatonin 3 Mg Tablet) 6 mg PO BEDTIME PRN PRN Reason: Insomnia Methylprednisolone Sodium Succinate (Methylprednisolone Sod Succ 40 Mg/Ml Vial) 40 mg IVPUSH Q12H REPLACED BY [facility] Last Admin: 11/22/23 20:28 Dose: 40 mg Documented By: ZANDER Montelukast Sodium (Montelukast Sodium 10 Mg Tablet) 10 mg PO BEDTIME REPLACED BY [facility] Ondansetron HCl (Ondansetron Hcl 4 Mg/2 Ml Vial) 4 mg IVPUSH Q8H PRN PRN Reason: Nausea and Vomiting Sodium Chloride (0.9 % Sodium Chloride Flush 3 Ml Syringe) 3 ml IVFLUSH QSHIFT REPLACED BY [facility] Last Admin: 11/23/23 01:17 Dose: Not Given Documented By: KEITH Non-Admin Reason: IV Running Labs 11/23/23 05:42 11/23/23 05:42 Labs: Laboratory Results - last 24 hr 11/22/23 11/22/23 11/22/23 17:18 17:22 20:02 MCV 95.7 MCH 30.7 MCHC 32.0 RDW 17.3 H Plt Count 169 MPV 10.8 Immature Gran % (Auto) 0.3 Neut % (Auto) 62.6 Lymph % (Auto) 11.9 L Nash % (Auto) 17.8 H Eos % (Auto) 6.4 H Baso % (Auto) 1.0 Lymph # (Auto) 0.8 L Nash # (Auto) 1.1 Eos # (Auto) 0.4 Baso # (Auto) 0.1 Abs Immat Gran (auto) 0.02 Absolute Neuts (auto) 3.9 Absolute Nucleated RBC 0.000 Nucleated RBC % (auto) 0.0 PT 15.8 H INR 1.3 H VBG pH 7.44 H VBG pCO2 46 VBG pO2 44 VBG HCO3 31 H VBG O2 Saturation 69.0 VBG Base Excess 6.8 Anion Gap 12 Estim Creat Clear Calc 63.9 Estimated GFR 58 POC Glucose Random Glucose 156 H Lactic Acid 2.7 H* Lactic Acid F/U @ 2Hr 2.7 H* Lactic Acid F/U @ 4Hr Calcium 9.6 D Total Bilirubin 1.2 H Direct Bilirubin 0.6 H AST 106 H ALT 41 H Alkaline Phosphatase 140 H B-Natriuretic Peptide 134 H Total Protein 7.6 Albumin 3.0 L COVID-19 (KATHERIN) Negative [employer] See Note Influenza Type A (JUNG) Negative Influenza Type B (JUNG) Negative Influenza A & B Note See Note 11/22/23 11/23/23 11/23/23 21:37 00:36 02:09 MCV MCH MCHC RDW Plt Count MPV Immature Gran % (Auto) Neut % (Auto) Lymph % (Auto) Nash % (Auto) Eos % (Auto) Baso % (Auto) Lymph # (Auto) Nash # (Auto) Eos # (Auto) Baso # (Auto) Abs Immat Gran (auto) Absolute Neuts (auto) Absolute Nucleated RBC Nucleated RBC % (auto) PT INR VBG pH VBG pCO2 VBG pO2 VBG HCO3 VBG O2 Saturation VBG Base Excess Anion Gap Estim Creat Clear Calc Estimated GFR POC Glucose 111 293 H Random Glucose Lactic Acid Lactic Acid F/U @ 2Hr Lactic Acid F/U @ 4Hr 2.1 H* Calcium Total Bilirubin Direct Bilirubin AST ALT Alkaline Phosphatase B-Natriuretic Peptide Total Protein Albumin COVID-19 (KATHERIN) COVID-Pets are family too Com Influenza Type A (JUNG) Influenza Type B (JUNG) Influenza A & B Note Assessment and Plan (1) Community acquired pneumonia: Status: Acute (2) Acute hypoxemic respiratory failure: Status: Acute (3) Pneumonia: Status: Acute Plan 73-year-old female with pertinent history of asthma/COPD overlap syndrome not on home oxygen, mood disorder, insulin-dependent diabetes mellitus, hypothyroidism, essential hypertension, history of PE on Eliquis, mixed hyperlipidemia who presents to the emergency department for evaluation of dyspnea. Acute hypoxemic respiratory failure secondary to left-sided pneumonia leading to exacerbation of asthma/COPD overlap syndrome -bronchodilators and steroid for copd exa -IV Abx for PNA -wean O2 Lactic acidosis due to albuterol use. No sepsis Elevated transaminases and alkaline phosphatase: Appears chronic, likely from fatty liver disease. Outpatient follow-up Normocytic anemia, chronic: Hemoglobin above transfusion threshold. Insulin-dependent diabetes mellitus -Lantus and SSI, check POCs Mood disorder. Continue home mood stabilizers Hypothyroidism. On Synthroid Essential hypertension. Continue antihypertensives Obesity: Counseled regarding diet and exercise DVT prophylaxis: Eliquis Full code need for inpt: IV Abx for PNA, and copd with hypoxia needing IV steroid and titiration Of O2 Quality Stroke Does the patient have a stroke diagnosis?: No VTE Prior VTE?: No VTE Risk Level:: Medical - moderate - high VTE Device Contraindication: Treatment Not Indicated VTE Drug Contraindication: N/A - Med Ordered
[2023-11-23 07:07] LABS: Basophils Percent Auto 0.2 % (0-2); Hematocrit 28.8 % (37.0-47.0); Hemoglobin 9.5 g/dl (12.0-16.0); Imm Gran Abs Auto 0.04 X10*3/uL (0.00-0.03); Lymphocytes Absolute Auto 0.3 X10*3/uL (1.2-4.9); Lymphocytes Percent Auto 7.9 % (20-40); Mean Corpuscular Hemoglobin 31.5 pg (27.0-33.0); Mean Corpuscular Volume 95.4 fL (80.0-98.0); Mean Platelet Volume 11.5 fL (9.4-12.3); Monocytes Absolute Auto 0.1 X10*3/uL (0.1-1.2); Monocytes Percent Auto 1.9 % (2-11); Neutrophils Absolute Auto 3.7 x10*3/uL (2.0-8.3); Platelet Count 146 X10*3/uL (160-400); Red Blood Count 3.02 X10*6/uL (4.20-5.50); Red Cell Distribution Width 17.1 % (11.0-16.0); White Blood Count 4.2 X10*3/uL (4.8-10.8)
[2023-11-23 07:34] LABS: Anion Gap 12 (12-20); Blood Urea Nitrogen 24 mg/dL (9-16); Carbon Dioxide 24 mmol/L (22-29); Chloride 105 mmol/L (96-108); Creatinine Clr Calc Pharmacy 69.1; Estimated Glomerular Filt Rate > 60; Glucose Random 283 mg/dL (60-115); Potassium 4.7 mmol/L (3.3-5.1); Sodium 136 mmol/L (135-145)
[2023-11-23 07:49] LABS: Glucose, Whole Blood 263 mg/dL (60-115)
[2023-11-23] MEDS: Ferrous Sulfate 324 MG TABLET.DR PO (08:00)
[2023-11-23] MEDS: Escitalopram Oxalate 10 MG TABLET PO (08:00)
[2023-11-23] MEDS: Apixaban 5 MG TABLET PO ×2 (08:00→20:22)
[2023-11-23] MEDS: Docusate Sodium 100 MG CAPSULE PO ×2 (08:00→20:22)
[2023-11-23] MEDS: Folic Acid 1 MG TABLET PO (08:00)
[2023-11-23] MEDS: Calcium + Vitamin D 250 MG TABLET 500 MG PO (08:00)
[2023-11-23] MEDS: methylPREDNISolone Sod Succ 40 MG/ML VIAL IVPUSH (08:00)
[2023-11-23] MEDS: Furosemide 20 MG TABLET PO (08:00)
[2023-11-23] MEDS: 0.9 % Sodium Chloride Flush 3 ML SYRINGE IVFLUSH ×3 (08:01→20:23)
[2023-11-23] MEDS: Insulin Glargine,Hum.rec.anlog 100 UNIT/ML 10 ML VIAL 30 UNIT SUBCUT (08:01)
[2023-11-23] MEDS: Albuterol/Iprat 2.5/0.5MG 3 ML AMPUL.NEB INHALE ×4 (08:13→19:33)
--- NOTE | 2023-11-23 09:16 | MHC.CM.PN ---
pt lives with her sister had no previous servies ,she has a ride home when she is dcd dc plan tbd by pts hosptial course
[2023-11-23 11:28] LABS: Glucose, Whole Blood 289 mg/dL (60-115)
[2023-11-23 16:19] LABS: Glucose, Whole Blood 375 mg/dL (60-115)
[2023-11-23 16:53] LABS: Glucose, Whole Blood 397 mg/dL (60-115)
[2023-11-23] MEDS: Insulin Regular, Human 100 UNIT/ML 3 ML VIAL 7 UNIT IVPUSH (17:12)
[2023-11-23 18:24] LABS: Glucose, Whole Blood 398 mg/dL (60-115)
--- NOTE | 2023-11-23 18:35 | PC.NURSE ---
Addendum entered by Verona Arroyo RN 11/23/23 18:41: At 18:20 Pts blood sugar recheck was 398, MD Stafford made aware, 20 units of Glargine SQ and 5 units of reg insulin ordered. Original Note: MD Mota made aware pt blood sugar was 375 at 16:20 via tiger text. At 16:42 pt reporting sudden blurry vision at this time pt VSS see flow sheets for values, Neuro assessment intact, blood sugar recheck was 397. MD at bedside 10 units lispro given SQ per sliding scale, in addition to 7units IVP regular insulin per MD orders. Per MD recheck blood sugar in 1 hour.
[2023-11-23] MEDS: Insulin Regular, Human 100 UNIT/ML 3 ML VIAL IVPUSH ×2 (19:11→22:21)
[2023-11-23] MEDS: Insulin Glargine,Hum.rec.anlog 100 UNIT/ML 10 ML VIAL 20 UNIT SUBCUT (19:11)
[2023-11-23] MEDS: cefTRIAXone sodium 1 GM in 0.9 % Sodium Chloride 50 ML IV (19:30)
[2023-11-23 20:18] LABS: Glucose, Whole Blood 398 mg/dL (60-115)
[2023-11-23] MEDS: Montelukast Sodium 10 MG TABLET PO (20:22)
[2023-11-23] MEDS: Azithromycin 500 MG in 0.9 % Sodium Chloride 250 ML 125 MG IV (20:23)
[2023-11-23 21:05] LABS: Glucose, Whole Blood 405 mg/dL (60-115)
--- NOTE | 2023-11-23 21:36 | PC.NURSE ---
Addendum entered by Radha Hurtado RN 11/23/23 23:18: recheck blood sugar is 375, Dr Kirk is aware. Original Note: at 2100 blood sugar level is 405, Dr Kirk orders to give 10 units of Humalog per sliding scale and recheck in 2 hrs. Will update.
[2023-11-23 23:12] LABS: Glucose, Whole Blood 375 mg/dL (60-115)
[2023-11-24] VITALS (10 sets, daily range): BP systolic 131–164; BP diastolic 58–68; PULSE 50–114; RESP 18–24; TEMP 36.4–37.2; O2SAT 88–95
[2023-11-24] MEDS: Levothyroxine Sodium 50 MCG TABLET PO (06:03)
[2023-11-24 06:31] LABS: Glucose, Whole Blood 433 mg/dL (60-115)
[2023-11-24 07:47] LABS: Glucose, Whole Blood 184 mg/dL (60-115)
[2023-11-24] MEDS: Insulin Glargine,Hum.rec.anlog 100 UNIT/ML 10 ML VIAL 34 UNIT SUBCUT (08:25)
[2023-11-24] MEDS: Insulin Lispro 100 UNIT/ML 3 ML VIAL SUBCUT ×4 (08:26→20:31)
[2023-11-24] MEDS: Calcium + Vitamin D 250 MG TABLET 500 MG PO (08:31)
[2023-11-24] MEDS: Furosemide 20 MG TABLET PO (08:33)
[2023-11-24] MEDS: Escitalopram Oxalate 10 MG TABLET PO (08:33)
[2023-11-24] MEDS: 0.9 % Sodium Chloride Flush 3 ML SYRINGE IVFLUSH ×3 (08:34→19:17)
[2023-11-24] MEDS: Docusate Sodium 100 MG CAPSULE PO ×2 (08:34→20:17)
[2023-11-24] MEDS: Folic Acid 1 MG TABLET PO (08:34)
[2023-11-24] MEDS: Apixaban 5 MG TABLET PO ×2 (08:34→20:18)
[2023-11-24] MEDS: Ferrous Sulfate 324 MG TABLET.DR PO (08:34)
[2023-11-24] MEDS: Albuterol/Iprat 2.5/0.5MG 3 ML AMPUL.NEB INHALE ×4 (08:42→19:21)
--- NOTE | 2023-11-24 09:44 | PM.DS ---
DS: Providers Provider Date of Service: 11/24/23 Date of admission: 11/22/23 19:27 Primary care physician: Mercedes Leo MD DS: Diagnosis Discharge Diagnosis (1) Community acquired pneumonia: Status: Acute (2) Acute hypoxemic respiratory failure: Status: Acute (3) Pneumonia: Status: Acute DS: Summary Hospital Course Hospital Course: Chief Complaint: Dyspnea This is a 73-year-old female with pertinent history of asthma/COPD overlap syndrome not on home oxygen, mood disorder, insulin-dependent diabetes mellitus, hypothyroidism, essential hypertension, history of PE on Eliquis, mixed hyperlipidemia who presents to the emergency department for evaluation of dyspnea. Patient states her symptoms started 2 days prior to presentation. She has been having dyspnea which is worse with exertion. Also has associated productive cough. Patient endorses wheezing. No orthopnea or PND. States she does not use oxygen at home. No relief with home inhaler. Unknown fever or chills. No chest discomfort, palpitations, abdominal pain, changes in urinary or bowel habits. In the emergency department, patient was found to be hypoxemic and imaging with left-sided infiltrate hospital course: She presented with dyspnea and found to have community acquired pneumonia causing asthma exacerbation and acute hypoxic respiratory failure and needing oxygen. Pneumonia was treated with IV ceftriaxone and Azithromycin, cultures have been negative. Ashtma was treate with bronchodilators by Neb and IV steroid which led to hyperglycemia with sugars exceeding 400. Overall she is improved, hypoxia has resolved, lungs are clear. Will transistion to oral Cefuroxime for a total of 7 days of antibitics. Given marked hyperglycemia, and resolution of bronchospasm, no wheezing will avoid further steroid and to continue inhalers Time Attestation Discharge coordination time: Greater than 30 minutes Quality: Safe Use of Opioids Does Pt have an Active Cancer Diagnosis on the Problem List?: No Quality: Stroke Does the patient have a stroke diagnosis?: No Physical Exam Vital Signs: Vital Signs: Last Vital Signs Temp 97.5 F 11/24/23 07:31 Pulse 85 11/24/23 08:42 Resp 18 11/24/23 08:42 BP 152/67 H 11/24/23 07:31 Pulse Ox 94 11/24/23 07:31 O2 Del Method Nasal Cannula 11/24/23 07:31 O2 Flow Rate 1.0 11/24/23 07:31 BMI result Body Mass Index 43.6 DS: Data Data Completed and Pending Completed studies during hospitalization [Text1]: Procedures Insertion of Infusion Device into Superior Vena Cava, Percutaneous Approach (06/01/23) Ultrasonography of Superior Vena Cava, Guidance (06/01/23) Labs on day of discharge: Laboratory Results - last 24 hr 11/23/23 11/23/23 11/23/23 11:17 16:11 16:49 POC Glucose 289 H 375 H* 397 H* 11/23/23 11/23/23 11/23/23 18:20 18:21 19:48 POC Glucose 398 H* 433 H* 398 H* 11/23/23 11/23/23 11/24/23 21:01 23:08 07:30 POC Glucose 405 H* 375 H* 184 H Preliminary micro results at discharge 11/22/23 20:02 Blood Culture - Preliminary Blood - Venous No growth after 24 hours. 11/22/23 20:02 Blood Culture - Preliminary Blood - Venous No growth after 24 hours. Discharge Plan Discharge Anticipated Discharge Date/Time: 11/24/23 09:39 Patient Disposition: Home, Self-Care Discharge Diagnosis: CAP, ASthma exacerbation, hyperglycemia Referrals: Mercedes Leo MD [Primary Care Provider] - 1 Week Discharge Medications: Continued levothyroxine 50 mcg tablet 50 mcg PO DAILY@0600 montelukast 10 mg tablet 10 mg PO BEDTIME Eliquis 5 mg tablet 5 mg PO BID albuterol sulfate 90 mcg/actuation HFA aerosol inhaler 2 puff INHALATION Q4H PRN (Reason: Shortness Of Breath Or Wheezing) citalopram 20 mg tablet 20 mg PO DAILY albuterol sulfate 2.5 mg /3 mL (0.083 %) solution for nebulization 2.5 mg inhalation Q4H PRN (Reason: asthma) calcium carbonate-vitamin D3 600 mg-5 mcg (200 unit) Tablet 1 tab PO DAILY ferrous sulfate 325 mg (65 mg iron) Tablet 325 mg PO DAILY fluticasone propion-salmeterol [Wixela Inhub] 500-50 mcg/dose blister with device 1 ea inhalation BID Humira 40 mg/0.8 mL syringe kit 40 mg subcut Q2W insulin aspart U-100 [Novolog FlexPen U-100 Insulin] 100 unit/mL (3 mL) insulin pen 0 sliding scale dose subcut TIDAC Protocol: Insulin Correction Scale Less than or equal to 110 ---- Give (units): 0 111 to 150 Give (units): 0 151 to 200 Give (units): 2 201 to 250 Give (units): 4 251 to 300 Give (units): 6 301 to 350 Give (units): 8 Greater than 350 Give (units): 10 Call MD if Blood Glucose > : 350 Rasuvo (PF) 25 mg/0.5 mL auto-injector 25 mg subcut RIOS furosemide 20 mg tablet 20 mg PO DAILY insulin glargine [Basaglar KwikPen U-100 Insulin] 100 unit/mL (3 mL) insulin pen 34 unit subcut DAILY acetaminophen 325 mg Tablet 650 mg PO Q4H PRN (Reason: Fever Or Pain) docusate sodium 100 mg Capsule 100 mg PO BID folic acid 1 mg tablet 1 mg PO DAILY ondansetron 4 mg Tablet,Disintegrating 4 mg PO Q6H PRN (Reason: Nausea And Vomiting) Diet: Diabetic diet Activity on Discharge: As tolerated Stand Alone Forms: Patient Portal Discharge page Care Plan Goals: full recovery from pneumonia and asthma Health Concerns: pneumonia asthm exacerbation hypoxia hyperglycemia Plan of Treatment: take cefuroxime as recommended to complete treatment for pneumonia use inhalers as recommended follow up with your Doctor in a week, call for appointment Assessment: see above Patient Instructions: Pneumonia (DC)
[2023-11-24 11:38] LABS: Glucose, Whole Blood 235 mg/dL (60-115)
[2023-11-24 16:20] LABS: Glucose, Whole Blood 261 mg/dL (60-115)
[2023-11-24] MEDS: methylPREDNISolone Sod Succ 40 MG/ML VIAL 20 MG IVPUSH (17:38)
[2023-11-24] MEDS: Furosemide 20 MG/2 ML VIAL IVPUSH (17:39)
[2023-11-24] MEDS: cefTRIAXone sodium 1 GM in 0.9 % Sodium Chloride 50 ML IV (19:17)
[2023-11-24] MEDS: Azithromycin 500 MG in 0.9 % Sodium Chloride 250 ML 125 MG IV (20:16)
[2023-11-24] MEDS: Montelukast Sodium 10 MG TABLET PO (20:17)
[2023-11-24 20:32] LABS: Glucose, Whole Blood 254 mg/dL (60-115)
[2023-11-25] VITALS (9 sets, daily range): BP systolic 131–142; BP diastolic 60–65; PULSE 77–92; RESP 16–19; TEMP 36.1–37.1; O2SAT 88–97
[2023-11-25] MEDS: Levothyroxine Sodium 50 MCG TABLET PO (06:18)
[2023-11-25 07:47] LABS: Glucose, Whole Blood 246 mg/dL (60-115)
[2023-11-25] MEDS: Docusate Sodium 100 MG CAPSULE PO ×2 (08:16→20:34)
[2023-11-25] MEDS: Calcium + Vitamin D 250 MG TABLET 500 MG PO (08:16)
[2023-11-25] MEDS: Ferrous Sulfate 324 MG TABLET.DR PO (08:16)
[2023-11-25] MEDS: Insulin Lispro 100 UNIT/ML 3 ML VIAL SUBCUT ×4 (08:17→21:12)
[2023-11-25] MEDS: Insulin Glargine,Hum.rec.anlog 100 UNIT/ML 10 ML VIAL 34 UNIT SUBCUT (08:17)
[2023-11-25] MEDS: Folic Acid 1 MG TABLET PO (08:17)
[2023-11-25] MEDS: Apixaban 5 MG TABLET PO ×2 (08:17→20:34)
[2023-11-25] MEDS: Escitalopram Oxalate 10 MG TABLET PO (08:17)
[2023-11-25] MEDS: Furosemide 20 MG TABLET PO (08:17)
[2023-11-25] MEDS: 0.9 % Sodium Chloride Flush 3 ML SYRINGE IVFLUSH ×3 (08:18→19:29)
[2023-11-25] MEDS: Fluticasone/Vilanterol 200/25 BLST.W.DEV 1 PUFF INHALE (08:55)
[2023-11-25] MEDS: Albuterol/Iprat 2.5/0.5MG 3 ML AMPUL.NEB INHALE ×4 (08:59→19:40)
[2023-11-25] MEDS: predniSONE 5 MG TABLET 15 MG PO (09:10)
--- NOTE | 2023-11-25 10:14 | HO.PM.IMPN ---
Subjective Subjective Date of Service: 11/25/23 Interval History: f/u on acute hypoxic respiratory failure d/t copd still on O2, no distresss Physical Exam Vital Signs: Vital Signs: Last Vital Signs Temp 98.7 F 11/25/23 07:33 Pulse 87 11/25/23 09:00 Resp 18 11/25/23 09:00 BP 136/60 11/25/23 07:33 Pulse Ox 92 11/25/23 07:33 O2 Del Method Nasal Cannula 11/25/23 07:33 O2 Flow Rate 1.0 11/25/23 07:33 BMI result Body Mass Index 43.6 General: AO X 3, no acute distress Resp: no wheezing, normal effort CVS: S1,S2,RRR GI: +BS, NT, no distention Skin: No rash Neuro: motor grossly intact Psych: appropriate affect Objective Data Active Medications Acetaminophen (Acetaminophen 325 Mg Tablet) 650 mg PO Q6H PRN PRN Reason: Pain, Mild (Pain Scale 1-3) Last Admin: 11/23/23 02:33 Dose: 650 mg Documented By: ADDI Albuterol/Ipratropium (Albuterol/Iprat 2.5/0.5mg 3 Ml Ampul.Neb) 3 ml INHALE RQ4H WHILE AWAKE [facility] Last Admin: 11/25/23 08:59 Dose: 3 ml Documented By: JAMILA Albuterol/Ipratropium (Albuterol/Iprat 2.5/0.5mg 3 Ml Ampul.Neb) 3 ml INHALE Q4H PRN PRN Reason: Wheezing Apixaban (Apixaban 5 Mg Tablet) 5 mg PO BID [facility] Last Admin: 11/25/23 08:17 Dose: 5 mg Documented By: SIENA Calcium Carbonate/Cholecalciferol (Calcium + Vitamin D 250 Mg Tablet) 500 mg PO DAILY [facility] Last Admin: 11/25/23 08:16 Dose: 500 mg Documented By: SIENA Dextrose (Dextrose 50 % 25 Gm/50 Ml Syringe) 25 gm IVPUSH Q15M PRN; Protocol PRN Reason: per Hypoglycemia Standing Ord. Docusate Sodium (Docusate Sodium 100 Mg Capsule) 100 mg PO BID [facility] Last Admin: 11/25/23 08:16 Dose: 100 mg Documented By: SIENA Escitalopram Oxalate (Escitalopram Oxalate 10 Mg Tablet) 10 mg PO DAILY [facility] Last Admin: 11/25/23 08:17 Dose: 10 mg Documented By: SIENA Ferrous Sulfate (Ferrous Sulfate 324 Mg Tablet.) 324 mg PO DAILY [facility] Last Admin: 11/25/23 08:16 Dose: 324 mg Documented By: SIENA Fluticasone/Vilanterol (Fluticasone/Vilanterol 200/25 Blst.W.Dev) 1 puff INHALE RDAILY [facility] Last Admin: 11/25/23 08:55 Dose: 1 puff Documented By: JAMILA Folic Acid (Folic Acid 1 Mg Tablet) 1 mg PO DAILY [facility] Last Admin: 11/25/23 08:17 Dose: 1 mg Documented By: SIENA Furosemide (Furosemide 20 Mg Tablet) 20 mg PO DAILY [facility]; Protocol Last Admin: 11/25/23 08:17 Dose: 20 mg Documented By: SIENA Glucose (Glucose Gel 15 Gm Gel..Gram.) 15 gm PO Q15M PRN; Protocol PRN Reason: per Hypoglycemia Standing Ord. Ceftriaxone Sodium 1 gm/ (Sodium Chloride) 50 mls @ 100 mls/hr IV Q24H [facility] Last Infusion: 11/24/23 19:53 Dose: Infused Documented By: ELIOT Azithromycin 500 mg/ Sodium (Chloride) 250 mls @ 125 mls/hr IV Q24H [facility] Last Infusion: 11/24/23 22:19 Dose: Infused Documented By: ELIOT Insulin Glargine (Insulin Glargine,Hum.Rec.Anlog 100 Unit/Ml 10 Ml Vial) 34 unit SUBCUT DAILY [facility] Last Admin: 11/25/23 08:17 Dose: 34 unit Documented By: SIENA Insulin Human Lispro (Insulin Lispro 100 Unit/Ml 3 Ml Vial) 0 unit SUBCUT QIDACHS [facility]; Protocol Last Admin: 11/25/23 08:17 Dose: 4 unit Documented By: SIENA Levothyroxine Sodium (Levothyroxine Sodium 50 Mcg Tablet) 50 mcg PO DAILY@0600 [facility] Last Admin: 11/25/23 06:18 Dose: 50 mcg Documented By: ELIOT Melatonin (Melatonin 3 Mg Tablet) 6 mg PO BEDTIME PRN PRN Reason: Insomnia Montelukast Sodium (Montelukast Sodium 10 Mg Tablet) 10 mg PO BEDTIME [facility] Last Admin: 11/24/23 20:17 Dose: 10 mg Documented By: ELIOT Ondansetron HCl (Ondansetron Hcl 4 Mg/2 Ml Vial) 4 mg IVPUSH Q8H PRN PRN Reason: Nausea and Vomiting Prednisone (Prednisone 5 Mg Tablet) 15 mg PO DAILY [facility] Last Admin: 11/25/23 09:10 Dose: 15 mg Documented By: SIENA Sodium Chloride (0.9 % Sodium Chloride Flush 3 Ml Syringe) 3 ml IVFLUSH QSHIFT [facility] Last Admin: 11/25/23 08:18 Dose: 3 ml Documented By: SIENA Labs 11/23/23 05:42 11/23/23 05:42 Labs: Laboratory Results - last 24 hr 11/24/23 11/24/23 11/24/23 11:35 16:12 20:13 POC Glucose 235 H 261 H 254 H 11/25/23 07:40 POC Glucose 246 H Microbiology Microbiology Results: Microbiology 11/22/23 20:02 Blood Culture - Preliminary Blood - Venous No growth after 48 hours. 11/22/23 20:02 Blood Culture - Preliminary Blood - Venous No growth after 48 hours. Assessment and Plan (1) Community acquired pneumonia: Status: Acute (2) Acute hypoxemic respiratory failure: Status: Acute (3) Pneumonia: Status: Acute Plan 73-year-old female with pertinent history of asthma/COPD overlap syndrome not on home oxygen, mood disorder, insulin-dependent diabetes mellitus, hypothyroidism, essential hypertension, history of PE on Eliquis, mixed hyperlipidemia who presents to the emergency department for evaluation of dyspnea. Acute hypoxemic respiratory failure secondary to left-sided pneumonia leading to exacerbation of asthma/COPD overlap syndrome -bronchodilators and steroid for copd exa -IV Abx for PNA -wean O2 -PO prednisone 15 and monitor sugars Lactic acidosis due to albuterol use. No sepsis Elevated transaminases and alkaline phosphatase: Appears chronic, likely from fatty liver disease. Outpatient follow-up Normocytic anemia, chronic: Hemoglobin above transfusion threshold. Insulin-dependent diabetes mellitus -Lantus and SSI, check POCs Mood disorder. Continue home mood stabilizers Hypothyroidism. On Synthroid Essential hypertension. Continue antihypertensives Obesity: Counseled regarding diet and exercise DVT prophylaxis: Eliquis Full code need for inpt: IV Abx for PNA, and copd with hypoxia needing IV steroid and titiration Of O2 PT eval and possible dc later today Quality Stroke Does the patient have a stroke diagnosis?: No VTE Prior VTE?: No VTE Risk Level:: Medical - moderate - high VTE Device Contraindication: Treatment Not Indicated VTE Drug Contraindication: N/A - Med Ordered
[2023-11-25 12:10] LABS: Glucose, Whole Blood 292 mg/dL (60-115)
--- NOTE | 2023-11-25 13:43 | MHC.CM.PN ---
Addendum entered by Ayse Gallego 11/25/23 14:38: IMM 11/25/23 [facility] does not have availability. [facility] offered a bed for tomorrow. The patient has accepted the bed offer. DP [facility] via BLS. Original Note: PT eval recommends STR. Obtained pt+ dtr preferences, referrals have been sent. 1st choice is [facility], 2nd is [facility]. DP [facility] via BLS. Patient continues with supplemental oxygen.
[2023-11-25 16:01] LABS: Glucose, Whole Blood 232 mg/dL (60-115)
--- NOTE | 2023-11-25 17:14 | PC.NURSE ---
Attempted to titrate pt down to RA, pt 88-90%. Pt titrated back to 1L nc, saturating 94%. MD Mota aware.
[2023-11-25] MEDS: cefTRIAXone sodium 1 GM in 0.9 % Sodium Chloride 50 ML IV (19:24)
[2023-11-25] MEDS: Montelukast Sodium 10 MG TABLET PO (20:34)
[2023-11-25] MEDS: Azithromycin 500 MG in 0.9 % Sodium Chloride 250 ML 125 MG IV (20:34)
[2023-11-25 20:55] LABS: Glucose, Whole Blood 352 mg/dL (60-115)
[2023-11-26] VITALS (8 sets, daily range): BP systolic 142–166; BP diastolic 67–74; PULSE 65–98; RESP 16–24; TEMP 36–36.7; O2SAT 93–96
[2023-11-26] MEDS: Melatonin 3 MG TABLET 6 MG PO (01:04)
[2023-11-26] MEDS: Acetaminophen 325 MG TABLET 650 MG PO ×2 (01:04→20:49)
[2023-11-26] MEDS: Levothyroxine Sodium 50 MCG TABLET PO (05:51)
[2023-11-26 08:18] LABS: Glucose, Whole Blood 129 mg/dL (60-115)
[2023-11-26] MEDS: 0.9 % Sodium Chloride Flush 3 ML SYRINGE IVFLUSH ×3 (08:48→23:53)
[2023-11-26] MEDS: Docusate Sodium 100 MG CAPSULE PO ×2 (08:49→20:35)
[2023-11-26] MEDS: Calcium + Vitamin D 250 MG TABLET 500 MG PO (08:49)
[2023-11-26] MEDS: Escitalopram Oxalate 10 MG TABLET PO (08:49)
[2023-11-26] MEDS: Ferrous Sulfate 324 MG TABLET.DR PO (08:49)
[2023-11-26] MEDS: Apixaban 5 MG TABLET PO ×2 (08:49→20:35)
[2023-11-26] MEDS: Folic Acid 1 MG TABLET PO (08:50)
[2023-11-26] MEDS: Furosemide 20 MG TABLET PO (08:50)
[2023-11-26] MEDS: predniSONE 5 MG TABLET 15 MG PO (08:50)
[2023-11-26] MEDS: Insulin Glargine,Hum.rec.anlog 100 UNIT/ML 10 ML VIAL 34 UNIT SUBCUT (08:50)
[2023-11-26] MEDS: Albuterol/Iprat 2.5/0.5MG 3 ML AMPUL.NEB INHALE ×4 (09:13→19:12)
[2023-11-26] MEDS: Fluticasone/Vilanterol 200/25 BLST.W.DEV 1 PUFF INHALE (09:13)
[2023-11-26 11:26] LABS: Glucose, Whole Blood 289 mg/dL (60-115)
[2023-11-26] MEDS: Insulin Lispro 100 UNIT/ML 3 ML VIAL SUBCUT ×3 (11:47→20:36)
--- NOTE | 2023-11-26 12:16 | HO.PM.IMPN ---
Subjective Subjective Date of Service: 11/26/23 Interval History: Being followed for acute hypoxic respiratory failure, complaining of persistent shortness of breath, not on home O2 lives at home with family, complaining of persistent cough, no fevers, no chills, no nausea no vomiting, no other acute issues overnight, unable to talk in full sentence without getting short of breath. Review of Systems All other system reviewed and negative. Physical Exam Vital Signs: Vital Signs: Last Vital Signs Temp 97.2 F 11/26/23 07:58 Pulse 73 11/26/23 09:15 Resp 20 11/26/23 09:15 BP 166/72 H 11/26/23 07:58 Pulse Ox 93 11/26/23 07:58 O2 Del Method Nasal Cannula 11/26/23 07:58 O2 Flow Rate 1 11/26/23 07:58 BMI result Body Mass Index 43.6 Const: Other: General short of breath with talking, in no acute distress. Neck supple no JVD. CVS regular rate rhythm, Respiratory lungs bilateral expiratory wheeze, no use of accessory muscles Gastrointestinal abdomen soft, non tender, bowel sounds audible, no guarding , no rigidity. Extremities no edema. Neuro non focal Skin no rash Objective Data Active Medications Acetaminophen (Acetaminophen 325 Mg Tablet) 650 mg PO Q6H PRN PRN Reason: Pain, Mild (Pain Scale 1-3) Last Admin: 11/26/23 01:04 Dose: 650 mg Documented By: ELIOT Albuterol/Ipratropium (Albuterol/Iprat 2.5/0.5mg 3 Ml Ampul.Neb) 3 ml INHALE RQ4H WHILE AWAKE [facility] Last Admin: 11/26/23 09:13 Dose: 3 ml Documented By: EVA Albuterol/Ipratropium (Albuterol/Iprat 2.5/0.5mg 3 Ml Ampul.Neb) 3 ml INHALE Q4H PRN PRN Reason: Wheezing Apixaban (Apixaban 5 Mg Tablet) 5 mg PO BID [facility] Last Admin: 11/26/23 08:49 Dose: 5 mg Documented By: HELIO Calcium Carbonate/Cholecalciferol (Calcium + Vitamin D 250 Mg Tablet) 500 mg PO DAILY [facility] Last Admin: 11/26/23 08:49 Dose: 500 mg Documented By: HELIO Dextrose (Dextrose 50 % 25 Gm/50 Ml Syringe) 25 gm IVPUSH Q15M PRN; Protocol PRN Reason: per Hypoglycemia Standing Ord. Docusate Sodium (Docusate Sodium 100 Mg Capsule) 100 mg PO BID [facility] Last Admin: 11/26/23 08:49 Dose: 100 mg Documented By: HELIO Escitalopram Oxalate (Escitalopram Oxalate 10 Mg Tablet) 10 mg PO DAILY [facility] Last Admin: 11/26/23 08:49 Dose: 10 mg Documented By: HELIO Ferrous Sulfate (Ferrous Sulfate 324 Mg Tablet.Dr) 324 mg PO DAILY [facility] Last Admin: 11/26/23 08:49 Dose: 324 mg Documented By: HELIO Fluticasone/Vilanterol (Fluticasone/Vilanterol 200/25 Blst.W.Dev) 1 puff INHALE RDAILY [facility] Last Admin: 11/26/23 09:13 Dose: 1 puff Documented By: EVA Folic Acid (Folic Acid 1 Mg Tablet) 1 mg PO DAILY [facility] Last Admin: 11/26/23 08:50 Dose: 1 mg Documented By: HELIO Furosemide (Furosemide 20 Mg Tablet) 20 mg PO DAILY [facility]; Protocol Last Admin: 11/26/23 08:50 Dose: 20 mg Documented By: HELIO Glucose (Glucose Gel 15 Gm Gel..Gram.) 15 gm PO Q15M PRN; Protocol PRN Reason: per Hypoglycemia Standing Ord. Ceftriaxone Sodium 1 gm/ (Sodium Chloride) 50 mls @ 100 mls/hr IV Q24H [facility] Last Infusion: 11/25/23 19:59 Dose: Infused Documented By: ELIOT Azithromycin 500 mg/ Sodium (Chloride) 250 mls @ 125 mls/hr IV Q24H [facility] Last Infusion: 11/25/23 22:36 Dose: Infused Documented By: ELIOT Insulin Glargine (Insulin Glargine,Hum.Rec.Anlog 100 Unit/Ml 10 Ml Vial) 34 unit SUBCUT DAILY [facility] Last Admin: 11/26/23 08:50 Dose: 34 unit Documented By: HELIO Insulin Human Lispro (Insulin Lispro 100 Unit/Ml 3 Ml Vial) 0 unit SUBCUT QIDACHS [facility]; Protocol Last Admin: 11/26/23 11:47 Dose: 6 unit Documented By: HELIO Levothyroxine Sodium (Levothyroxine Sodium 50 Mcg Tablet) 50 mcg PO DAILY@0600 [facility] Last Admin: 11/26/23 05:51 Dose: 50 mcg Documented By: ELIOT Melatonin (Melatonin 3 Mg Tablet) 6 mg PO BEDTIME PRN PRN Reason: Insomnia Last Admin: 11/26/23 01:04 Dose: 6 mg Documented By: ELIOT Montelukast Sodium (Montelukast Sodium 10 Mg Tablet) 10 mg PO BEDTIME [facility] Last Admin: 11/25/23 20:34 Dose: 10 mg Documented By: ELIOT Ondansetron HCl (Ondansetron Hcl 4 Mg/2 Ml Vial) 4 mg IVPUSH Q8H PRN PRN Reason: Nausea and Vomiting Prednisone (Prednisone 5 Mg Tablet) 15 mg PO DAILY [facility] Last Admin: 11/26/23 08:50 Dose: 15 mg Documented By: HELIO Sodium Chloride (0.9 % Sodium Chloride Flush 3 Ml Syringe) 3 ml IVFLUSH QSHIFT [facility] Last Admin: 11/26/23 08:48 Dose: 3 ml Documented By: HELIO Labs 11/23/23 05:42 11/23/23 05:42 Labs: Laboratory Results - last 24 hr 11/25/23 11/25/23 11/26/23 15:58 20:24 08:14 POC Glucose 232 H 352 H* 129 H 11/26/23 11:18 POC Glucose 289 H Assessment and Plan (1) Community acquired pneumonia: Status: Acute (2) Acute hypoxemic respiratory failure: Status: Acute (3) Pneumonia: Status: Acute Plan 73-year-old female with pertinent history of asthma/COPD overlap syndrome not on home oxygen, mood disorder, insulin-dependent diabetes mellitus, hypothyroidism, essential hypertension, history of PE on Eliquis, mixed hyperlipidemia who presents to the emergency department for evaluation of dyspnea. Acute hypoxemic respiratory failure secondary to left-sided pneumonia leading to exacerbation of asthma/COPD overlap syndrome -persistent shortness of breath, slow improvement -continue bronchodilators and steroid for copd exa -on IV ceftriaxone and azithromycin day 3 -wean O2 Lactic acidosis due to albuterol use. No sepsis Elevated transaminases and alkaline phosphatase: Appears chronic, likely from fatty liver disease. Outpatient follow-up Normocytic anemia, chronic: Hemoglobin above transfusion threshold. Insulin-dependent diabetes mellitus -elevated blood sugars due to steroids continue Lantus and adjust SSI, check POCs Mood disorder. Continue home mood stabilizers Hypothyroidism. On Synthroid Essential hypertension. Elevated blood pressures on Lasix 20 mg daily follow BP closely Morbid Obesity: Counseled regarding diet and exercise DVT prophylaxis: Georges Full code need for inpt: IV Abx for PNA, and copd with hypoxia needing IV steroid and titiration Of O2 PT recommend short-term rehab school social worker arranging for safe discharge Quality Stroke Does the patient have a stroke diagnosis?: No VTE Prior VTE?: No VTE Risk Level:: Medical - moderate - high VTE Device Contraindication: Treatment Not Indicated VTE Drug Contraindication: N/A - Med Ordered
[2023-11-26] MEDS: guaiFENesin DM 100/10/5 ML 5 ML SYRUP 10 ML PO ×2 (14:26→20:35)
--- NOTE | 2023-11-26 15:57 | MHC.CM.PN ---
per rounds pt not medically ready for dc will be [facility] over the weekend
[2023-11-26 16:13] LABS: Glucose, Whole Blood 358 mg/dL (60-115)
[2023-11-26 20:10] LABS: Glucose, Whole Blood 342 mg/dL (60-115)
[2023-11-26] MEDS: cefTRIAXone sodium 1 GM in 0.9 % Sodium Chloride 50 ML IV (20:29)
[2023-11-26] MEDS: Montelukast Sodium 10 MG TABLET PO (20:35)
[2023-11-26] MEDS: Azithromycin 500 MG in 0.9 % Sodium Chloride 250 ML 125 MG IV (21:12)
[2023-11-27] VITALS (8 sets, daily range): BP systolic 123–158; BP diastolic 58–70; PULSE 73–103; RESP 18–22; TEMP 36.1–36.6; O2SAT 92–95
[2023-11-27] MEDS: Levothyroxine Sodium 50 MCG TABLET PO (06:01)
[2023-11-27] MEDS: Albuterol/Iprat 2.5/0.5MG 3 ML AMPUL.NEB INHALE ×4 (07:50→19:41)
[2023-11-27] MEDS: Fluticasone/Vilanterol 200/25 BLST.W.DEV 1 PUFF INHALE (07:50)
[2023-11-27 08:11] LABS: Glucose, Whole Blood 108 mg/dL (60-115)
[2023-11-27] MEDS: Ferrous Sulfate 324 MG TABLET.DR PO (10:02)
[2023-11-27] MEDS: Docusate Sodium 100 MG CAPSULE PO ×2 (10:02→20:22)
[2023-11-27] MEDS: Apixaban 5 MG TABLET PO ×2 (10:02→20:22)
[2023-11-27] MEDS: predniSONE 5 MG TABLET 15 MG PO (10:02)
[2023-11-27] MEDS: Calcium + Vitamin D 250 MG TABLET 500 MG PO (10:02)
[2023-11-27] MEDS: Furosemide 20 MG TABLET PO (10:02)
[2023-11-27] MEDS: Folic Acid 1 MG TABLET PO (10:03)
[2023-11-27] MEDS: Escitalopram Oxalate 10 MG TABLET PO (10:03)
[2023-11-27] MEDS: Insulin Glargine,Hum.rec.anlog 100 UNIT/ML 10 ML VIAL 34 UNIT SUBCUT (10:04)
[2023-11-27] MEDS: guaiFENesin DM 100/10/5 ML 5 ML SYRUP 10 ML PO ×3 (10:09→20:21)
[2023-11-27] MEDS: 0.9 % Sodium Chloride Flush 3 ML SYRINGE IVFLUSH ×3 (10:15→19:38)
[2023-11-27 11:31] LABS: Glucose, Whole Blood 246 mg/dL (60-115)
[2023-11-27] MEDS: Insulin Lispro 100 UNIT/ML 3 ML VIAL SUBCUT ×3 (12:03→20:53)
--- NOTE | 2023-11-27 15:18 | P.PNIM_ITS ---
Subjective Subjective Date of Service: 11/27/23 Interval History: Complaining of persistent shortness of breath and cough, no fevers, no chills, no other acute issues overnight, tolerating diet. Review of Systems All other system reviewed and negative. Physical Exam 2 Vital Signs: Vital Signs: Last Vital Signs Temp 97.3 F 11/27/23 07:50 Pulse 97 11/27/23 10:40 Resp 18 11/27/23 10:40 BP 123/58 L 11/27/23 07:50 Pulse Ox 95 11/27/23 07:50 O2 Del Method Nasal Cannula 11/27/23 07:50 O2 Flow Rate 1.5 11/27/23 07:50 BMI result Body Mass Index 43.6 Const: Other: General short of breath with talking, in no acute distress. Neck supple no JVD. CVS regular rate rhythm, Respiratory lungs bilateral expiratory wheeze, diminished breath sound, no use of accessory muscles Gastrointestinal abdomen soft, non tender, bowel sounds audible, no guarding , no rigidity. Extremities no edema. Neuro non focal Skin no rash Objective Data Active Medications Acetaminophen (Acetaminophen 325 Mg Tablet) 650 mg PO Q6H PRN PRN Reason: Pain, Mild (Pain Scale 1-3) Last Admin: 11/26/23 20:49 Dose: 650 mg Documented By: HELIO Albuterol/Ipratropium (Albuterol/Iprat 2.5/0.5mg 3 Ml Ampul.Neb) 3 ml INHALE RQ4H WHILE AWAKE [facility] Last Admin: 11/27/23 10:38 Dose: 3 ml Documented By: TERESITA Albuterol/Ipratropium (Albuterol/Iprat 2.5/0.5mg 3 Ml Ampul.Neb) 3 ml INHALE Q4H PRN PRN Reason: Wheezing Apixaban (Apixaban 5 Mg Tablet) 5 mg PO BID [facility] Last Admin: 11/27/23 10:02 Dose: 5 mg Documented By: CHANEL Benzonatate (Benzonatate 100 Mg Capsule) 200 mg PO TID PRN PRN Reason: cough Calcium Carbonate/Cholecalciferol (Calcium + Vitamin D 250 Mg Tablet) 500 mg PO DAILY [facility] Last Admin: 11/27/23 10:02 Dose: 500 mg Documented By: CHANEL Dextrose (Dextrose 50 % 25 Gm/50 Ml Syringe) 25 gm IVPUSH Q15M PRN; Protocol PRN Reason: per Hypoglycemia Standing Ord. Docusate Sodium (Docusate Sodium 100 Mg Capsule) 100 mg PO BID [facility] Last Admin: 11/27/23 10:02 Dose: 100 mg Documented By: CHANEL Escitalopram Oxalate (Escitalopram Oxalate 10 Mg Tablet) 10 mg PO DAILY [facility] Last Admin: 11/27/23 10:03 Dose: 10 mg Documented By: CHANEL Ferrous Sulfate (Ferrous Sulfate 324 Mg Tablet.Dr) 324 mg PO DAILY [facility] Last Admin: 11/27/23 10:02 Dose: 324 mg Documented By: CHANEL Fluticasone/Vilanterol (Fluticasone/Vilanterol 200/25 Blst.W.Dev) 1 puff INHALE RDAILY [facility] Last Admin: 11/27/23 07:50 Dose: 1 puff Documented By: TERESITA Folic Acid (Folic Acid 1 Mg Tablet) 1 mg PO DAILY [facility] Last Admin: 11/27/23 10:03 Dose: 1 mg Documented By: CHANEL Furosemide (Furosemide 20 Mg Tablet) 20 mg PO DAILY [facility]; Protocol Last Admin: 11/27/23 10:02 Dose: 20 mg Documented By: CHANEL Glucose (Glucose Gel 15 Gm Gel..Gram.) 15 gm PO Q15M PRN; Protocol PRN Reason: per Hypoglycemia Standing Ord. Guaifenesin/Dextromethorphan (Guaifenesin Dm 100/10/5 Ml 5 Ml Syrup) 10 ml PO TID [facility] Last Admin: 11/27/23 10:09 Dose: 10 ml Documented By: CHANEL Ceftriaxone Sodium 1 gm/ (Sodium Chloride) 50 mls @ 100 mls/hr IV Q24H [facility] Last Infusion: 11/26/23 21:13 Dose: Infused Documented By: HELIO Azithromycin 500 mg/ Sodium (Chloride) 250 mls @ 125 mls/hr IV Q24H [facility] Last Infusion: 11/27/23 00:12 Dose: Infused Documented By: [place] Insulin Glargine (Insulin Glargine,Hum.Rec.Anlog 100 Unit/Ml 10 Ml Vial) 34 unit SUBCUT DAILY [facility] Last Admin: 11/27/23 10:04 Dose: 34 unit Documented By: CHANEL Insulin Human Lispro (Insulin Lispro 100 Unit/Ml 3 Ml Vial) 0 unit SUBCUT QIDACHS [facility]; Protocol Last Admin: 11/27/23 12:03 Dose: 8 unit Documented By: STEFAN Levothyroxine Sodium (Levothyroxine Sodium 50 Mcg Tablet) 50 mcg PO DAILY@0600 [facility] Last Admin: 11/27/23 06:01 Dose: 50 mcg Documented By: [place] Melatonin (Melatonin 3 Mg Tablet) 6 mg PO BEDTIME PRN PRN Reason: Insomnia Last Admin: 11/26/23 01:04 Dose: 6 mg Documented By: ELIOT Montelukast Sodium (Montelukast Sodium 10 Mg Tablet) 10 mg PO BEDTIME [facility] Last Admin: 11/26/23 20:35 Dose: 10 mg Documented By: HELIO Ondansetron HCl (Ondansetron Hcl 4 Mg/2 Ml Vial) 4 mg IVPUSH Q8H PRN PRN Reason: Nausea and Vomiting Prednisone (Prednisone 5 Mg Tablet) 15 mg PO DAILY [facility] Last Admin: 11/27/23 10:02 Dose: 15 mg Documented By: CHANEL Sodium Chloride (0.9 % Sodium Chloride Flush 3 Ml Syringe) 3 ml IVFLUSH QSHIFT [facility] Last Admin: 11/27/23 10:15 Dose: 3 ml Documented By: CHANEL Labs 11/23/23 05:42 11/23/23 05:42 Labs: Laboratory Results - last 24 hr 11/26/23 11/26/23 11/27/23 16:09 20:06 07:58 POC Glucose 358 H* 342 H 108 11/27/23 11:22 POC Glucose 246 H Assessment and Plan (1) Community acquired pneumonia: Status: Acute (2) Acute hypoxemic respiratory failure: Status: Acute (3) Pneumonia: Status: Acute Plan 73-year-old female with pertinent history of asthma/COPD overlap syndrome not on home oxygen, mood disorder, insulin-dependent diabetes mellitus, hypothyroidism, essential hypertension, history of PE on Eliquis, mixed hyperlipidemia who presents to the emergency department for evaluation of dyspnea. Acute hypoxemic respiratory failure secondary to left-sided pneumonia leading to exacerbation of asthma/COPD overlap syndrome -persistent shortness of breath, slow improvement -continue bronchodilators and change po steroid to IV Solu-Medrol 20 b.i.d. for copd exa -on IV ceftriaxone and azithromycin day 4 -wean O2 as tolerated Lactic acidosis due to albuterol use. No sepsis Elevated transaminases and alkaline phosphatase: Appears chronic, likely from fatty liver disease. Outpatient follow-up Normocytic anemia, chronic: Hemoglobin above transfusion threshold. Insulin-dependent diabetes mellitus -elevated blood sugars due to steroids continue Lantus and adjust SSI, check POCs Mood disorder. Continue home mood stabilizers Hypothyroidism. On Synthroid Essential hypertension. Elevated blood pressures on Lasix 20 mg daily follow BP closely Morbid Obesity: Counseled regarding diet and exercise DVT prophylaxis: Georges Full code need for inpt: IV Abx for PNA, and copd with hypoxia needing IV steroid and titiration Of O2 PT recommend short-term rehab social services designee arranging for safe discharge Quality Stroke Does the patient have a stroke diagnosis?: No VTE Prior VTE?: No VTE Risk Level:: Medical - moderate - high VTE Device Contraindication: Treatment Not Indicated VTE Drug Contraindication: N/A - Med Ordered
[2023-11-27] MEDS: methylPREDNISolone Sod Succ 40 MG/ML VIAL 20 MG IVPUSH (15:39)
[2023-11-27 16:39] LABS: Glucose, Whole Blood 316 mg/dL (60-115)
[2023-11-27] MEDS: cefTRIAXone sodium 1 GM in 0.9 % Sodium Chloride 50 ML IV (19:38)
[2023-11-27] MEDS: Azithromycin 500 MG in 0.9 % Sodium Chloride 250 ML 125 MG IV (20:18)
[2023-11-27] MEDS: Montelukast Sodium 10 MG TABLET PO (20:22)
[2023-11-27 20:26] LABS: Glucose, Whole Blood 300 mg/dL (60-115)
[2023-11-28] VITALS (7 sets, daily range): BP systolic 124–158; BP diastolic 56–73; PULSE 65–90; RESP 18–20; TEMP 36.1–36.3; O2SAT 94–96
[2023-11-28] MEDS: methylPREDNISolone Sod Succ 40 MG/ML VIAL 20 MG IVPUSH (03:34)
[2023-11-28] MEDS: Levothyroxine Sodium 50 MCG TABLET PO (05:54)
[2023-11-28] MEDS: Benzonatate 100 MG CAPSULE 200 MG PO (05:56)
[2023-11-28 07:08] LABS: Glucose, Whole Blood 216 mg/dL (60-115)
[2023-11-28] MEDS: 0.9 % Sodium Chloride Flush 3 ML SYRINGE IVFLUSH (07:27)
[2023-11-28] MEDS: Insulin Lispro 100 UNIT/ML 3 ML VIAL SUBCUT ×2 (07:28→11:35)
[2023-11-28] MEDS: Albuterol/Iprat 2.5/0.5MG 3 ML AMPUL.NEB INHALE ×3 (07:41→15:34)
[2023-11-28] MEDS: Fluticasone/Vilanterol 200/25 BLST.W.DEV 1 PUFF INHALE (07:41)
[2023-11-28] MEDS: Insulin Glargine,Hum.rec.anlog 100 UNIT/ML 10 ML VIAL 34 UNIT SUBCUT (08:02)
[2023-11-28] MEDS: Folic Acid 1 MG TABLET PO (08:02)
[2023-11-28] MEDS: Calcium + Vitamin D 250 MG TABLET 500 MG PO (08:02)
[2023-11-28] MEDS: Docusate Sodium 100 MG CAPSULE PO (08:02)
[2023-11-28] MEDS: guaiFENesin DM 100/10/5 ML 5 ML SYRUP 10 ML PO ×2 (08:02→13:59)
[2023-11-28] MEDS: Apixaban 5 MG TABLET PO (08:03)
[2023-11-28] MEDS: Escitalopram Oxalate 10 MG TABLET PO (08:03)
[2023-11-28] MEDS: Furosemide 20 MG TABLET PO (08:03)
[2023-11-28] MEDS: Ferrous Sulfate 324 MG TABLET.DR PO (08:03)
[2023-11-28 11:13] LABS: Glucose, Whole Blood 338 mg/dL (60-115)
[2023-11-28] MEDS: cefuroxime axetiL 500 MG TABLET PO (12:06)
--- NOTE | 2023-11-28 12:23 | PM.DS ---
DS: Providers Provider Date of Service: 11/28/23 Date of admission: 11/22/23 19:27 Primary care physician: Mercedes Leo MD DS: Diagnosis Discharge Diagnosis (1) Community acquired pneumonia: Status: Acute (2) Acute hypoxemic respiratory failure: Status: Acute (3) Pneumonia: Status: Acute DS: Summary Hospital Course Hospital Course: Chief Complaint: Dyspnea This is a 73-year-old female with pertinent history of asthma/COPD overlap syndrome not on home oxygen, mood disorder, insulin-dependent diabetes mellitus, hypothyroidism, essential hypertension, history of PE on Eliquis, mixed hyperlipidemia who presents to the emergency department for evaluation of dyspnea. Patient states her symptoms started 2 days prior to presentation. She has been having dyspnea which is worse with exertion. Also has associated productive cough. Patient endorses wheezing. No orthopnea or PND. States she does not use oxygen at home. No relief with home inhaler. Unknown fever or chills. No chest discomfort, palpitations, abdominal pain, changes in urinary or bowel habits. In the emergency department, patient was found to be hypoxemic and imaging with left-sided infiltrate hospital course: She presented with dyspnea and found to have community acquired pneumonia causing asthma exacerbation and acute hypoxic respiratory failure and needing oxygen. Pneumonia was treated with IV ceftriaxone and Azithromycin, cultures have been negative. Copd/Ashtma overlap syndrome was treated with bronchodilators by Neb and IV steroid which led to hyperglycemia with sugars exceeding 400. Overall she is improved, she has mild persistent hypoxia, lungs are clear. Will transition to oral Cefuroxime for a total of 7 days of antibitics. Will discharge her on low-dose prednisone 10 mg b.i.d. for 5 days recommend to follow blood sugars closely and continue insulin sliding scale , recommend to continue updraft treatment q.4 hours while awake, cough medication and ambulate as tolerated patient is not on home oxygen. Elevated transaminases and alkaline phosphatase: Appears chronic, likely from fatty liver disease. Normocytic anemia, chronic: Did not qualify for blood transfusion. Mood disorder. Continue home mood stabilizers Hypothyroidism. Continue Synthroid. Morbid Obesity: Counseled regarding diet and exercise Time Attestation Discharge coordination time: Greater than 30 minutes Quality: Safe Use of Opioids Does Pt have an Active Cancer Diagnosis on the Problem List?: No Quality: Stroke Does the patient have a stroke diagnosis?: No Physical Exam Vital Signs: Vital Signs: Last Vital Signs Temp 97 F 02/18/24 06:54 Pulse 87 11/28/23 11:30 Resp 18 11/28/23 11:30 BP 158/73 H 11/28/23 06:54 Pulse Ox 95 11/28/23 06:54 O2 Del Method Nasal Cannula 11/28/23 06:54 O2 Flow Rate 1.5 11/28/23 06:54 BMI result Body Mass Index 43.6 Const: Other: General awake alert x3, in no acute distress. Neck supple no JVD. CVS regular rate rhythm, Respiratory lungs clear to auscultation occasional wheeze, no use of accessory muscles Gastrointestinal abdomen soft, non tender, bowel sounds audible, no guarding , no rigidity. Extremities no edema. Neuro non focal Skin no rash Psych appropriate affect DS: Data Data Completed and Pending Completed studies during hospitalization [Text1]: Procedures Insertion of Infusion Device into Superior Vena Cava, Percutaneous Approach (06/01/23) Ultrasonography of Superior Vena Cava, Guidance (06/01/23) Labs on day of discharge: Laboratory Results - last 24 hr 11/27/23 11/27/23 11/28/23 16:31 20:12 06:54 POC Glucose 316 H 300 H 216 H 11/28/23 11:08 POC Glucose 338 H Discharge Plan Discharge Anticipated Discharge Date/Time: 11/24/23 09:39 Patient Disposition: Xfer SNF Discharge Diagnosis: CAP, ASthma exacerbation, hyperglycemia Referrals: Mercedes Leo MD [Primary Care Provider] - 1 Week Discharge Medications: New cefuroxime axetil 500 mg Tablet 500 mg PO BID Qty: 4 0RF prednisone 10 mg tablet 10 mg PO BID Qty: 10 0RF ipratropium-albuterol 0.5 mg-3 mg(2.5 mg base)/3 mL Solution For Nebulization 3 ml inhalation RQ4H WHILE AWAKE Qty: 90 0RF dextromethorphan-guaifenesin 10-100 mg/5 mL Syrup 10 ml PO TID Qty: 237 0RF Rx Instructions: Take Robitussin for 5 more days and then as needed for cough. omeprazole 20 mg capsule,delayed release(DR/EC) 20 mg PO DAILY Qty: 30 0RF Continued levothyroxine 50 mcg tablet 50 mcg PO DAILY@0600 montelukast 10 mg tablet 10 mg PO BEDTIME Eliquis 5 mg tablet 5 mg PO BID albuterol sulfate 90 mcg/actuation HFA aerosol inhaler 2 puff INHALATION Q4H PRN (Reason: Shortness Of Breath Or Wheezing) citalopram 20 mg tablet 20 mg PO DAILY albuterol sulfate 2.5 mg /3 mL (0.083 %) solution for nebulization 2.5 mg inhalation Q4H PRN (Reason: asthma) calcium carbonate-vitamin D3 600 mg-5 mcg (200 unit) Tablet 1 tab PO DAILY ferrous sulfate 325 mg (65 mg iron) Tablet 325 mg PO DAILY fluticasone propion-salmeterol [Wixela Inhub] 500-50 mcg/dose blister with device 1 ea inhalation BID Humira 40 mg/0.8 mL syringe kit 40 mg subcut Q2W insulin aspart U-100 [Novolog FlexPen U-100 Insulin] 100 unit/mL (3 mL) insulin pen 0 sliding scale dose subcut TIDAC Protocol: Insulin Correction Scale Less than or equal to 110 ---- Give (units): 0 111 to 150 Give (units): 0 151 to 200 Give (units): 2 201 to 250 Give (units): 4 251 to 300 Give (units): 6 301 to 350 Give (units): 8 Greater than 350 Give (units): 10 Call MD if Blood Glucose > : 350 Rasuvo (PF) 25 mg/0.5 mL auto-injector 25 mg subcut RIOS furosemide 20 mg tablet 20 mg PO DAILY insulin glargine [Basaglar KwikPen U-100 Insulin] 100 unit/mL (3 mL) insulin pen 34 unit subcut DAILY acetaminophen 325 mg Tablet 650 mg PO Q4H PRN (Reason: Fever Or Pain) docusate sodium 100 mg Capsule 100 mg PO BID folic acid 1 mg tablet 1 mg PO DAILY ondansetron 4 mg Tablet,Disintegrating 4 mg PO Q6H PRN (Reason: Nausea And Vomiting) Discharge Orders: Discharge Order (Routine); Ordered 11/28/23 Ordered By: Torrey Dailey Diet: Diabetic diet Activity on Discharge: As tolerated Stand Alone Forms: Patient Portal Discharge page Care Plan Goals: Treated for asthma/COPD overlap syndrome with hypoxia Continue oxygen 2-3 L and gradually wean to keep finger oximetry greater than 90, not on home oxygen Continue scheduled and as needed updraft, cough medication Take prednisone 10 mg twice daily for 5 more days, follow blood sugar closely while on steroids and use insulin sliding scale higher dose Health Concerns: pneumonia asthm exacerbation hypoxia hyperglycemia Plan of Treatment: take cefuroxime as recommended to complete treatment for pneumonia use inhalers as recommended follow up with your Doctor in a week, call for appointment Assessment: see above Patient Instructions: Pneumonia (DC)
--- NOTE | 2023-11-28 12:53 | PC.NURSE ---
Pt to be sent to SNF, understand ABT for PNA. No questions at this time.
--- NOTE | 2023-11-29 17:01 | P.CDIM_ITS ---
PROVIDER RESPONSE TEXT: To clarify, the appropriate diagnosis supported by the clinical indicators: Acute QUERY TEXT: PHYSICIAN'S DOCUMENTATION REQUEST Date of Query: 11/25/2023 10:26 AM EST Patient Name: Jennifer Duran Admit Date: 11/23/2023 Dear Sourav Mota, A review of the medical record indicates additional documentation may be needed. Please review below and update the documentation accordingly. Clinical Indicators: Per Hospitalist Progress Note 11/25/23: Lactic acidosis due to albuterol use LA on 11/22/23: 2.7 Clarify which of the following accurately represents the acuity of the (insert diagnosis). Possible options might include: Acute Acute on chronic Compensated Chronic stable condition Remission Other (explain) Clinically unable to determine (explain) Thank you, Lady Cosby RN Use of terms such as suspected, likely, concern for, or probable (associated with a specific diagnosi s that is being evaluated, monitored, or treated as if it exists) are acceptable and can be coded in the inpatient se tting, when documented at the time of discharge. Please use your independent medical judgment in providing your response. THIS QUERY IS PART OF THE PERMANENT MEDICAL RECORD
== END 2023-11-28 16:10 | disposition skilled nursing facility (03) | DRG 193 ==
LOC: HO.ED 19:49 → HO.EDOVER 19:56 → HO.S3 11-23 00:01
PROVIDERS: Internal Medicine; Admitting Provider Student in an Organized Health Care Education/Training Program; Emergency Provider Emergency Medicine; PCP Orthopaedic Surgery; Visit Provider Hospitalist
DX: J18.9 Pneumonia, unspecified organism (principal); J96.01 Acute respiratory failure with hypoxia; E87.21 Acute metabolic acidosis; J44.0 Chronic obstructive pulmonary disease with (acute) lower respiratory infection; J45.901 Unspecified asthma with (acute) exacerbation; Z68.41 Body mass index [BMI] 40.0-44.9, adult; J44.1 Chronic obstructive pulmonary disease with (acute) exacerbation; E11.65 Type 2 diabetes mellitus with hyperglycemia; E78.2 Mixed hyperlipidemia; E03.9 Hypothyroidism, unspecified; D64.9 Anemia, unspecified; E66.01 Morbid (severe) obesity due to excess calories; F39 Unspecified mood [affective] disorder; K76.0 Fatty (change of) liver, not elsewhere classified; M06.9 Rheumatoid arthritis, unspecified; Z20.822 Contact with and (suspected) exposure to COVID-19; Z79.4 Long term (current) use of insulin; Z79.01 Long term (current) use of anticoagulants; Z79.51 Long term (current) use of inhaled steroids; Z71.3 Dietary counseling and surveillance; Z79.620 Long term (current) use of immunosuppressive biologic; Z79.890 Hormone replacement therapy; Z79.899 Other long term (current) drug therapy
CPT/HCPCS: 36415; 71045; 80048; 80076; 82803; 82947; 83605; 83880; 84484; 85025; 85610; 87040; 87502; 87635; 93005; 94640; 97162; 99285; J0456; J0696; J1940; J2920

== ENCOUNTER → 2023-11-22 16:34 | Outpatient (BNV) | payer MEDICARE, SELFPAY | PROVIDERS: Admitting Provider Student in an Organized Health Care Education/Training Program; Emergency Provider Emergency Medicine; PCP Orthopaedic Surgery; Visit Provider Internal Medicine Cardiovascular Disease | DX: R06.02 Shortness of breath (principal); I49.1 Atrial premature depolarization | CPT/HCPCS: 93010 ==

== ENCOUNTER → 2023-11-22 17:10 | Outpatient (BNV) | payer MEDICARE, SELFPAY | PROVIDERS: Emergency Provider Emergency Medicine; PCP Orthopaedic Surgery; Visit Provider Student in an Organized Health Care Education/Training Program | DX: J18.9 Pneumonia, unspecified organism (principal); J96.01 Acute respiratory failure with hypoxia | CPT/HCPCS: 99222; 99232; 99233; 99238 ==

== ENCOUNTER 2024-01-02 17:28 | Emergency (ER) | payer MEDICARE, SELFPAY ==
--- NOTE | ~2024-01-02 | CT_ITS ---
EXAMINATION: CT ABDOMEN AND PELVIS WITH CONTRAST CLINICAL INFORMATION: Left lower quadrant pain. COMPARISON: 05/31/2023 TECHNIQUE: Multidetector volumetric images were obtained from the superior aspect of the liver through the pubic symphysis following administration 85 mL of Omnipaque 350 intravenous contrast. Sagittal and coronal reformatted images were obtained on the technologist's workstation. Oral contrast: No This CT examination was performed using dose optimization techniques as appropriate, variously including the following: *Automated exposure control *Adjustment of mA and/or kV according to patient size (this includes techniques or standardized protocols for targeted exams where dose is matched to indication/reason for exam; i.e. extremities or head) *Use of iterative reconstruction technique DLP: 1294 mGy-cm FINDINGS: LUNG BASES: There is a partially imaged small left pleural effusion with associated atelectatic change at the left lung base. LIVER, GALLBLADDER, AND BILIARY TREE: The liver is small and irregular in contour. No focal liver lesions are seen. There is no intrahepatic biliary duct dilatation. The gallbladder is unremarkable with no evidence of radiopaque gallstones, gallbladder wall thickening, or obvious pericholecystic inflammatory changes. PANCREAS: Unremarkable. SPLEEN: Unremarkable. ADRENAL GLANDS: Unremarkable. KIDNEYS AND URETERS: The kidneys are normal in size, shape, and attenuation. No hydronephrosis, hydroureter, or calculi seen. No perinephric stranding. BLADDER: Unremarkable. GASTROINTESTINAL TRACT: The small and large bowel are unremarkable. The appendix is unremarkable. ABDOMINAL WALL: There is soft tissue anasarca. LYMPH NODES: Normal. VASCULAR: Atherosclerotic plaque of the abdominal aorta and proximal branches. PELVIC VISCERA: Unremarkable. FLUID: There is a small to moderate ascites. OSSEOUS STRUCTURES: Unremarkable. CT/CT abdomen pelvis w IV con IMPRESSION: 1. No acute abnormality in the abdomen or pelvis. 2. Small irregular liver consistent with cirrhosis. Small to moderate volume ascites. 3. Small left pleural effusion with associated atelectatic change at the left lung base. 4. Soft tissue anasarca. Fleischner guidelines were followed.
[2024-01-02 17:38] VITALS: BP 158/74; PULSE 84; O2SAT 98
[2024-01-02 17:39] VITALS: BP 171/70; PULSE 95; RESP 20; TEMP 36.7; O2SAT 97; BMI 48.9
--- NOTE | 2024-01-02 17:50 | PC.NURSE ---
patient a&ox3, iv previously inserted by ems, tech to draw labs, pt hx afib- currently afib on cafeteria monitor- on eliquis, vitals otherwise stable, pt c/o abd pain 06/20, 2+ edema BLE- pt on lasix daily, pt awaiting provider, call diaz within reach, will continue to monitor
[2024-01-02 18:25] LABS: MANUAL DIFF FLAG NO
[2024-01-02 18:26] LABS: Basophils Absolute Auto 0.1 X10*3/uL (0.0-0.2); Basophils Percent Auto 0.7 % (0-2); Eosinophils Absolute Auto 0.3 X10*3/uL (0.0-0.4); Eosinophils Percent Auto 3.1 % (0-4); Hematocrit 30.9 % (37.0-47.0); Hemoglobin 9.9 g/dl (12.0-16.0); Imm Gran Abs Auto 0.04 X10*3/uL (0.00-0.03); Imm Gran Pct Auto 0.4 % (0.0-0.4); Lymphocytes Absolute Auto 1.2 X10*3/uL (1.2-4.9); Lymphocytes Percent Auto 13.3 % (20-40); Mean Corpuscular Hemoglobin 29.5 pg (27.0-33.0); Mean Platelet Volume 10.6 fL (9.4-12.3); Monocytes Percent Auto 11.3 % (2-11); Neutrophils Absolute Auto 6.4 x10*3/uL (2.0-8.3); Neutrophils Percent Auto 71.2 % (45-73); Platelet Count 169 X10*3/uL (160-400); Red Blood Count 3.36 X10*6/uL (4.20-5.50); Red Cell Distribution Width 17.2 % (11.0-16.0)
[2024-01-02 18:45] LABS: Alanine Aminotransferase 24 U/L (0-31); Albumin Level 2.6 g/dL (3.5-5.0); Alkaline Phosphatase 126 U/L (39-117); Anion Gap 10 (12-20); Aspartate Amino Transferase 44 U/L (5-31); Bilirubin Direct 0.6 mg/dL (0.0-0.5); Bilirubin Total 1.2 mg/dL (0.0-1.0); Blood Urea Nitrogen 19 mg/dL (9-16); Calcium 8.7 mg/dL (8.4-10.2); Carbon Dioxide 30 mmol/L (22-29); Chloride 104 mmol/L (96-108); Creatinine Clr Calc Pharmacy 66.4; Estimated Glomerular Filt Rate 56; Glucose Random 75 mg/dL (60-115); Lipase 21 U/L (8-78); Potassium 3.5 mmol/L (3.3-5.1); Sodium 140 mmol/L (135-145); Total Protein 6.3 g/dL (6.5-8.0)
[2024-01-02 19:12] VITALS: BP 134/54; PULSE 97; RESP 22; TEMP 37.1; O2SAT 97
--- NOTE | 2024-01-02 23:04 | ED.GENADULT ---
HPI - General Adult General Chief complaint: Abdominal Pain Stated complaint: lower left abd pain on/off x1 year, visible swelli Time Seen by Provider: 01/02/24 22:08 Source: patient, RN notes reviewed and old records reviewed Mode of arrival: EMS Limitations: no limitations History of Present Illness HPI narrative: 73-year-old female with past medical history significant for type 2 diabetes, obesity, hypertension presents for evaluation of left lower abdominal pain. Patient reports left-sided abdominal pain since February of last year, approximately 10 months She states that she has been seen in the past but ?nobody can figure out what it is. ? Patient reports that over the last week she feels as though the area in the left lower abdomen is more painful and more swollen Patient denies any history abdominal surgeries except for remote history of hysterectomy Denies fevers, chills, nausea vomiting, diarrhea, constipation. Denies any burning with urination, urinary frequency or blood in the urine Related Data Home Medications Medication Instructions Recorded Confirmed albuterol sulfate 2.5 mg/3 mL 2.5 mg inhalation Q4H PRN asthma 01/20/23 11/22/23 (0.083 %) solution for nebulization albuterol sulfate 90 mcg/actuation 2 puff inhalation Q4H PRN 01/20/23 11/22/23 aerosol inhaler Shortness Of Breath Or Wheezing apixaban 5 mg tablet (Eliquis) 5 mg PO BID 01/20/23 11/22/23 calcium carbonate 600 mg-vitamin 1 tab PO DAILY 01/20/23 11/22/23 D3 5 mcg (200 unit) tablet citalopram 20 mg tablet 20 mg PO DAILY 01/20/23 11/22/23 ferrous sulfate 325 mg (65 mg 325 mg PO DAILY 01/20/23 11/22/23 iron) tablet levothyroxine 50 mcg tablet 50 mcg PO DAILY@0600 01/20/23 11/22/23 montelukast 10 mg tablet 10 mg PO BEDTIME 01/20/23 11/22/23 furosemide 20 mg tablet 20 mg PO DAILY 06/01/23 11/22/23 insulin glargine 100 unit/mL (3 34 unit subcut DAILY 06/01/23 11/22/23 mL) subcutaneous pen (Eugenia Slater U-100 Insulin) acetaminophen 325 mg tablet 650 mg PO Q4H PRN Fever Or Pain 10/10/23 02/12/24 docusate sodium 100 mg capsule 100 mg PO BID 07/20/23 11/22/23 folic acid 1 mg tablet 1 mg PO DAILY 07/20/23 11/22/23 ondansetron 4 mg disintegrating 4 mg PO Q6H PRN Nausea And Vomiting 07/20/23 11/22/23 tablet adalimumab 40 mg/0.8 mL 40 mg subcut Q2W 11/22/23 11/22/23 subcutaneous syringe kit (Humira) fluticasone 500 mcg-salmeterol 50 1 ea inhalation BID 11/22/23 11/22/23 mcg/dose blistr powdr for inhalation (Wixela Inhub) insulin aspart U-100 100 unit/mL 0 sliding scale dose subcut TIDAC 11/22/23 11/22/23 (3 mL) subcutaneous pen (Novolog FlexPen U-100 Insulin aspart) methotrexate (PF) 25 mg/0.5 mL 25 mg subcut RIOS 11/22/23 11/22/23 subcutaneous auto-injector (Rasuvo (PF)) Previous Rx's Medication Instructions Recorded cefuroxime axetil 500 mg tablet 500 mg PO BID #4 tabs 11/28/23 dextromethorphan-guaifenesin 10 10 ml PO TID #237 mL 11/28/23 mg-100 mg/5 mL oral syrup ipratropium 0.5 mg-albuterol 3 mg 3 ml inhalation RQ4H WHILE AWAKE 11/28/23 (2.5 mg base)/3 mL nebulization #90 mL soln omeprazole 20 mg capsule,delayed 20 mg PO DAILY #30 caps 11/28/23 release prednisone 10 mg tablet 10 mg PO BID #10 tabs 11/28/23 Allergies Allergy/AdvReac Type Severity Reaction Status Date / Time rosuvastatin [From CRESTOR] Allergy Unknown Unknown Verified 01/02/24 17:38 empagliflozin Allergy Unknown Verified 01/02/24 17:38 [From Jardiance] piperacillin [From Zosyn] AdvReac Intermediate Vomiting Verified 01/02/24 17:38 tazobactam [From Zosyn] AdvReac Intermediate Vomiting Verified 01/02/24 17:38 Review of Systems Constitutional: Constitutional: Denies body ache(s), Denies chills and Denies fever(s) ENT: Denies sore throat Cardiovascular: Cardiovascular: Denies chest pain and Denies dyspnea Respiratory: Respiratory: Denies cough and Denies dyspnea Gastrointestinal: Gastrointestinal: Reports abdominal pain, Reports bloating, Denies nausea and Denies vomiting Musculoskeletal: Musculoskeletal: Denies back pain Integumentary/Breasts: Skin/Breast: Denies rash Psychiatric: Psychiatric: Denies suicidal ideation [facility] Past Medical History Medical History Bacteremia Morbid (severe) obesity due to excess calories Asthma-COPD overlap syndrome Hypothyroidism Pulmonary embolism Depression Hyperlipidemia Rheumatoid arthritis Hypertension Diabetes mellitus, type 2 Social History Social History Household Members: Family Housing: House Do you presently have visiting nurse or other home services: No Alcohol intake: never Patient Tobacco Use Status: Never used Tobacco Smoked in Last 30 Days: No Use of substances other than those prescribed or required for medical reasons: No Advance Directives: Yes Advance Directives on File: Yes Advance Directives Date on File: 06/07/23 service: No Current occupational status: disabled Physical Exam ED Vital Signs: Vital Signs - 24 hr 01/02/24 17:39 01/02/24 19:12 Temperature 98.1 F 98.7 F Pulse Rate 95 97 Respiratory Rate 20 22 H Blood Pressure 171/70 H 134/54 L Pulse Oximetry 97 97 Oxygen Delivery Method Room Air Room Air BMI result Body Mass Index 48.9 Const General: healthy appearing, comfortable, no acute distress, alert and awake Nutritional Appearance: well nourished Orientation/consciousness: patient oriented x3 HENMT Head: Yes normocephalic and Yes atraumatic Eyes Eyelids: Yes eyelids normal Conjunctivae: conjunctivae normal Sclerae: sclerae normal Corneas: corneas normal Pupils: Equal, round and reactive pupils present EOM: EOMs intact bilaterally Neck Neck: Yes full ROM Resp Effort & Inspection: normal respiratory effort, able to speak in complete sentences and not labored Cardio Rate: regular rate Rhythm: regular rhythm GI Inspection: No distended, Yes Abdominal panniculus present and Yes obesity Palpation (GI): Soft to palpation, not firm, Tenderness to palpation present (GI) (Tender in the left lower quadrant without guarding), no guarding and not rigid Auscultation: normoactive bowel sounds Skin General skin exam: no rashes or lesions noted and elasticity normal Neuro General: patient oriented x3 Cranial nerves: Yes Equal, round and reactive pupils present and Yes Bilaterally intact EOM present Cognition (Neuro): normal cognition Extrem Other: Moving all extremities well without any obvious deformities Course Reevaluation(s) Reevaluation #1: Patient's workup complete, CT scan shows no infectious or surgical pathology. UA shows no sign of infection. The patient be discharged to follow-up with outpatient providers. Time: 01:59 Medications Administered Discontinued Medications Generic Name Dose Route Start Last Admin Trade Name Freq PRN Reason Stop Dose Admin Sodium Chloride 1,000 mls @ 999 mls/hr 01/02/24 22:30 01/02/24 23:19 Ns IV 01/02/24 23:30 999 mls/hr .Q1H1M GIOVANNI Administration Iohexol 85 ml 01/02/24 23:04 01/02/24 23:05 Iohexol 350 Mg/Ml 100 Ml Infus..Btl IV 01/02/24 23:05 85 ml ONCE ONE Administration Morphine Sulfate 4 mg 01/02/24 22:20 01/02/24 23:19 Morphine Sulfate 4 Mg/Ml Cartridge IVPUSH 01/02/24 22:21 4 mg ONCE ONE Administration Protocol Ondansetron HCl 4 mg 01/02/24 22:20 01/02/24 23:19 Ondansetron Hcl 4 Mg/2 Ml Vial IVPUSH 01/02/24 22:21 4 mg ONCE ONE Administration Medical Decision Making Medical Decision Making [facility] Narrative: 73-year-old female presents for evaluation left lower abdominal pain. Review of her records she has a history of abdominal wall cellulitis. There is no evident skin changes or obvious cellulitis or abdominal wall wounds on her visit today. Patient is tender in the left lower quadrant but without any guarding. Given the morbid obesity, is difficult to determine any abdominal distention. She has no leukocytosis. She has a normocytic anemia consistent with her baseline. Chemistries are significant for a CO2 of 30 which may be related to obesity hypoventilation syndrome. Renal function is within normal limits. Creatinine is 0.97 with a GFR of 56. Patient's glucose is 75. She has a mild transaminitis which is consistent with her recent labs going back to January of last year. Plan for CT scan of the abdomen pelvis to evaluate for obstruction versus constipation versus hernia Differential Diagnosis Differential Diagnoses: The differential diagnosis associated with the presentation includes Abdominal pain Inguinal hernia Spigelian hernia Bowel obstruction Diverticulitis Morbid obesity Lab Data MDM Lab Attestation statement: I reviewed the patient's lab results. See above 01/02/24 18:21 01/02/24 18:21 Labs: Lab Results 01/02/24 01/03/24 Range/Units 18:21 01:41 WBC 9.0 (4.8-10.8) X10*3/uL RBC 3.36 L (4.20-5.50) X10*6/uL Hgb 9.9 L (12.0-16.0) g/dl Hct 30.9 L (37.0-47.0) % MCV 92.0 (80.0-98.0) fL MCH 29.5 (27.0-33.0) pg MCHC 32.0 (31.0-35.0) g/dl RDW 17.2 H (11.0-16.0) % Plt Count 169 D (160-400) X10*3/uL MPV 10.6 (9.4-12.3) fL Immature Gran % (Auto) 0.4 (0.0-0.4) % Neut % (Auto) 71.2 (45-73) % Lymph % (Auto) 13.3 L (20-40) % Garrett % (Auto) 11.3 H (2-11) % Eos % (Auto) 3.1 (0-4) % Baso % (Auto) 0.7 (0-2) % Lymph # (Auto) 1.2 (1.2-4.9) X10*3/uL Garrett # (Auto) 1.0 (0.1-1.2) X10*3/uL Eos # (Auto) 0.3 (0.0-0.4) X10*3/uL Baso # (Auto) 0.1 (0.0-0.2) X10*3/uL Abs Immat Gran (auto) 0.04 H (0.00-0.03) X10*3/uL Absolute Neuts (auto) 6.4 (2.0-8.3) x10*3/uL Absolute Nucleated RBC 0.000 (0.0-0.012) X10*3/uL Nucleated RBC % (auto) 0.0 (0.0-0.2) /100WBC Sodium 140 (135-145) mmol/L Potassium 3.5 (3.3-5.1) mmol/L Chloride 104 (96-108) mmol/L Carbon Dioxide 30 H (22-29) mmol/L Anion Gap 10 L (12-20) BUN 19 H (9-16) mg/dL Creatinine 0.97 (0.5-1.4) mg/dL Estim Creat Clear Calc 66.4 Estimated GFR 56 Random Glucose 75 (60-115) mg/dL Calcium 8.7 (8.4-10.2) mg/dL Total Bilirubin 1.2 H (0.0-1.0) mg/dL Direct Bilirubin 0.6 H (0.0-0.5) mg/dL AST 44 H (5-31) U/L ALT 24 (0-31) U/L Alkaline Phosphatase 126 H (39-117) U/L Total Protein 6.3 L (6.5-8.0) g/dL Albumin 2.6 L (3.5-5.0) g/dL Lipase 21 (8-78) U/L Urine Color Yellow Urine Appearance Clear Urine pH 6.0 (5.0-9.0) Ur Specific [place] >= 1.030 H (1.005-1.025) Urine Protein Negative (Neg-Trace) mg/dL Urine Glucose (UA) Negative (Negative) mg/dL Urine Ketones Negative (Negative) mg/dL Urine Blood Negative (Negative) Urine Nitrite Negative (Negative) Ur Leukocyte Esterase Negative (Negative) Radiology Impression Discussion of test interpretation with radiology: I have reviewed the radiologist's reading. Radiologist Impression: 1. No acute abnormality in the abdomen or pelvis. 2. Small irregular liver consistent with cirrhosis. Small to moderate volume ascites. 3. Small left pleural effusion with associated atelectatic change at the left lung base. 4. Soft tissue anasarca. Discharge Plan Discharge Clinical Impression: Abdominal pain Patient Disposition: Home, Self-Care Instructions: Abdominal Pain (ED) Additional Instructions: Your workup in the ER today was reassuring Your blood work did not have any significant abnormalities compared to her baseline Your CT scan did not show any concerning abnormalities. Your urine sample did not show signs of infection Take ibuprofen/Tylenol as needed for pain Follow-up with your primary doctor and return for new or worsening symptoms Prescriptions: No Action levothyroxine 50 mcg tablet 50 mcg PO DAILY@0600 montelukast 10 mg tablet 10 mg PO BEDTIME Eliquis 5 mg tablet 5 mg PO BID albuterol sulfate 90 mcg/actuation HFA aerosol inhaler 2 puff INHALATION Q4H PRN (Reason: Shortness Of Breath Or Wheezing) citalopram 20 mg tablet 20 mg PO DAILY albuterol sulfate 2.5 mg /3 mL (0.083 %) solution for nebulization 2.5 mg inhalation Q4H PRN (Reason: asthma) calcium carbonate-vitamin D3 600 mg-5 mcg (200 unit) Tablet 1 tab PO DAILY ferrous sulfate 325 mg (65 mg iron) Tablet 325 mg PO DAILY fluticasone propion-salmeterol [Wixela Inhub] 500-50 mcg/dose blister with device 1 ea inhalation BID Humira 40 mg/0.8 mL syringe kit 40 mg subcut Q2W insulin aspart U-100 [Novolog FlexPen U-100 Insulin] 100 unit/mL (3 mL) insulin pen 0 sliding scale dose subcut TIDAC Protocol: Insulin Correction Scale Less than or equal to 110 ---- Give (units): 0 111 to 150 Give (units): 0 151 to 200 Give (units): 2 201 to 250 Give (units): 4 251 to 300 Give (units): 6 301 to 350 Give (units): 8 Greater than 350 Give (units): 10 Call MD if Blood Glucose > : 350 Rasuvo (PF) 25 mg/0.5 mL auto-injector 25 mg subcut RIOS cefuroxime axetil 500 mg Tablet 500 mg PO BID Qty: 4 0RF prednisone 10 mg tablet 10 mg PO BID Qty: 10 0RF ipratropium-albuterol 0.5 mg-3 mg(2.5 mg base)/3 mL Solution For Nebulization 3 ml inhalation RQ4H WHILE AWAKE Qty: 90 0RF dextromethorphan-guaifenesin 10-100 mg/5 mL Syrup 10 ml PO TID Qty: 237 0RF Rx Instructions: Take Robitussin for 5 more days and then as needed for cough. omeprazole 20 mg capsule,delayed release(DR/EC) 20 mg PO DAILY Qty: 30 0RF furosemide 20 mg tablet 20 mg PO DAILY insulin glargine [Basaglar KwikPen U-100 Insulin] 100 unit/mL (3 mL) insulin pen 34 unit subcut DAILY acetaminophen 325 mg Tablet 650 mg PO Q4H PRN (Reason: Fever Or Pain) docusate sodium 100 mg Capsule 100 mg PO BID folic acid 1 mg tablet 1 mg PO DAILY ondansetron 4 mg Tablet,Disintegrating 4 mg PO Q6H PRN (Reason: Nausea And Vomiting)
[2024-01-02] MEDS: iohexoL 350 MG/ML 100 ML INFUS..BTL 85 ML IV (23:05)
[2024-01-02] MEDS: ondansetron HCL 4 MG/2 ML VIAL IVPUSH (23:19)
[2024-01-02] MEDS: 0.9 % Sodium Chloride 1,000 ML 999 ML IV (23:19)
[2024-01-02] MEDS: Morphine Sulfate 4 MG/ML CARTRIDGE IVPUSH (23:19)
[2024-01-03 01:50] LABS: Appearance Urine Clear; Color Urine Yellow; Glucose Urine UA Negative (Negative); Leukocyte Esterase Urine Negative (Negative); Nitrite Urine Negative (Negative); Specific Gravity - Urine >= 1.030 (1.005-1.025); Urine Blood Negative (Negative); Urine Ketones Negative (Negative); Urine Protein Negative (Neg-Trace)
[2024-01-03 03:02] VITALS: BP 145/46; PULSE 92; RESP 18; TEMP 36.8; O2SAT 98
== END 2024-01-03 02:15 | disposition home or self-care (01) ==
PROVIDERS: Emergency Provider Emergency Medicine; PCP Internal Medicine
DX: R10.32 Left lower quadrant pain (principal); E11.9 Type 2 diabetes mellitus without complications; I10 Essential (primary) hypertension; Z86.711 Personal history of pulmonary embolism
CPT/HCPCS: 36415; 74177; 80053; 81003; 82248; 83690; 85025; 96361; 96374; 96375; 99284; J2270; J2405; Q9967

== ENCOUNTER 2024-02-06 19:35 | Observation (INO) | payer MEDICARE, SELFPAY ==
--- NOTE | ~2024-02-06 | CT_ITS ---
EXAMINATION: CT CHEST WITHOUT CONTRAST CLINICAL INFORMATION: Left basilar density. COMPARISON: Chest x-ray February 06, 2024. CT of chest February 19, 2023 TECHNIQUE: Multidetector volumetric CT imaging of the chest was done. Axial MIP volume rendering provided. Sagittal and coronal reformatted images were obtained. This CT examination was performed using dose optimization techniques as appropriate, variously including the following: *Automated exposure control *Adjustment of mA and/or kV according to patient size (this includes techniques or standardized protocols for targeted exams where dose is matched to indication/reason for exam; i.e. extremities or head) *Use of iterative reconstruction technique DLP: 287 mGy-cm FINDINGS: LUNGS: Dense consolidation atelectasis at the left lung base. Central bronchial airways are open. No suspicious lung nodules. MEDIASTINUM: Heart size is normal. Calcifications of mitral valve annulus No pericardial effusion. There is no mediastinal mass or significant lymphadenopathy. There are vascular cast stations of the wall of aorta. CORONARY ARTERY CALCIFICATION: Moderate volume of coronary calcification PLEURA: Small to moderate volume left pleural effusion. AXILLA: No lymphadenopathy. UPPER ABDOMEN: Abdominal ascites around the liver and right upper quadrant. Spleen is enlarged measuring 13 cm AP. OSSEOUS STRUCTURES: Multilevel degenerative spondylosis spine. CT/CT chest wo IV con IMPRESSION: 1. Dense consolidation/atelectasis at the left lung base. 2. Small to moderate volume left pleural effusion. 3. Abdominal ascites. 4. Splenomegaly. Fleischner guidelines were followed.
--- NOTE | ~2024-02-06 | XR_ITS ---
EXAMINATION: XR CHEST CLINICAL INFORMATION: Dyspnea, cough COMPARISON: 11/22/23 TECHNIQUE: Upright frontal portable view of the chest was obtained. FINDINGS: There is rotation to the right. Devices overlie the patient. The cardiac size is top normal but unchanged. The central vessels are prominent but distinct. There is no alveolar edema. Low lung volumes. There is persistent pleural parenchymal opacity in the left lower chest with obscuration of the left hemidiaphragm. No pneumothorax. XR/XR chest 1V IMPRESSION: Persistent left base pleural-parenchymal opacity. There was left lower lung disease and pleural fluid on CT 01/02/24 No new pneumonia
[2024-02-06 19:41] VITALS: BP 124/80; BP 130/56; PULSE 101; PULSE 90; RESP 24; TEMP 36.9; O2SAT 94; O2SAT 96; BMI 42.1
--- NOTE | 2024-02-06 19:47 | ECG_ITS ---
Test Reason : SOB Blood Pressure : / mmHG Vent. Rate : 103 BPM Atrial Rate : 103 BPM P-R Int : 210 ms QRS Dur : 086 ms QT Int : 348 ms P-R-T Axes : 064 -14 045 degrees QTc Int : 455 ms Sinus tachycardia with 1st degree A-V block Septal infarct (cited on or before 20-JAN-2023) Abnormal ECG When compared with ECG of 22-NOV-2023 16:54, Premature supraventricular complexes are no longer Present Referred By: Suhas Chávez Electronically Signed By:BYRON FARR
[2024-02-06] MEDS: guaiFEN/Codeine SF 200/20/10ML 10 ML LIQUID PO (20:10)
[2024-02-06 20:14] LABS: Basophils Absolute Auto 0.1 X10*3/uL (0.0-0.2); Basophils Percent Auto 1.4 % (0-2); Eosinophils Absolute Auto 0.1 X10*3/uL (0.0-0.4); Eosinophils Percent Auto 3.2 % (0-4); Hematocrit 32.6 % (37.0-47.0); Hemoglobin 10.4 g/dl (12.0-16.0); Imm Gran Abs Auto 0.02 X10*3/uL (0.00-0.03); Imm Gran Pct Auto 0.5 % (0.0-0.4); Lymphocytes Absolute Auto 0.6 X10*3/uL (1.2-4.9); Lymphocytes Percent Auto 12.8 % (20-40); MANUAL DIFF FLAG SCAN; Mean Corpuscular HGB Conc 31.9 g/dl (31.0-35.0); Mean Corpuscular Hemoglobin 29.7 pg (27.0-33.0); Mean Corpuscular Volume 93.1 fL (80.0-98.0); Mean Platelet Volume 10.8 fL (9.4-12.3); Monocytes Percent Auto 22.3 % (2-11); Neutrophils Absolute Auto 2.6 x10*3/uL (2.0-8.3); Neutrophils Percent Auto 59.8 % (45-73); Platelet Count 130 X10*3/uL (160-400); SCAN SMEAR FLAG 1; White Blood Count 4.3 X10*3/uL (4.8-10.8)
[2024-02-06 20:31] LABS: Alanine Aminotransferase 31 U/L (0-31); Albumin Level 2.6 g/dL (3.5-5.0); Alkaline Phosphatase 130 U/L (39-117); Anion Gap 13 (12-20); Aspartate Amino Transferase 99 U/L (5-31); Bilirubin Total 0.9 mg/dL (0.0-1.0); Blood Urea Nitrogen 15 mg/dL (9-16); Carbon Dioxide 27 mmol/L (22-29); Chloride 100 mmol/L (96-108); Creatinine Clr Calc Pharmacy 51.3; Estimated Glomerular Filt Rate 46; Glucose Random 138 mg/dL (60-115); Potassium 3.9 mmol/L (3.3-5.1); Sodium 136 mmol/L (135-145); Total Protein 7.1 g/dL (6.5-8.0)
[2024-02-06 20:34] LABS: B Type Natriuretic Peptide 90 pg/mL (<100)
[2024-02-06 20:38] LABS: SLIDE REVIEW VERIFIED; Troponin-I High Sensitivity 19.7 ng/L (<3.5-17.0)
[2024-02-06 21:00] LABS: Influenza A PCR NEGATIVE (Negative); Influenza B PCR NEGATIVE (Negative); Resp Syncy Virus RNA Qual PCR NEGATIVE (Negative); SARS COV2 PCR INHOUSE NEGATIVE (Negative)
[2024-02-06] MEDS: Albuterol Sulfate 7.5 MG, Albuterol Sulfate (0.083%) 2.5 MG 10 MG INHALE (21:12)
[2024-02-06 21:13] VITALS: PULSE 85; O2SAT 96
--- NOTE | 2024-02-06 22:17 | ED.SOB ---
HPI - SOB/Dyspnea General Chief Complaint: Dyspnea Stated Complaint: SOB, HX COPD & ASTHMA Time Seen by Provider: 02/06/24 19:45 Source: patient Mode of arrival: ambulatory Limitations: no limitations History of Present Illness HPI Narrative: Patient's history of COPD/asthma been having increased shortness of breath and cough for last 3 days cough is mostly dry using a nebulizer treatment without much relief not on home oxygen no fever no chills patient is saturating 93% at room air with obvious wheezing no chest pain no palpitation no leg swelling patient is started on spironolactone 100 mg daily by the PCP for fluid overload Related Data Home Medications ?Medication ?Instructions ?Recorded ?Confirmed albuterol sulfate 2.5 mg/3 mL 2.5 mg inhalation Q4H PRN asthma 01/20/23 11/22/23 (0.083 %) solution for nebulization albuterol sulfate 90 mcg/actuation 2 puff inhalation Q4H PRN 01/20/23 11/22/23 aerosol inhaler Shortness Of Breath Or Wheezing apixaban 5 mg tablet (Eliquis) 5 mg PO BID 01/20/23 11/22/23 calcium carbonate 600 mg-vitamin 1 tab PO DAILY 01/20/23 11/22/23 D3 5 mcg (200 unit) tablet citalopram 20 mg tablet 20 mg PO DAILY 01/20/23 11/22/23 ferrous sulfate 325 mg (65 mg 325 mg PO DAILY 01/20/23 11/22/23 iron) tablet levothyroxine 50 mcg tablet 50 mcg PO DAILY@0600 01/20/23 11/22/23 montelukast 10 mg tablet 10 mg PO BEDTIME 01/20/23 11/22/23 furosemide 20 mg tablet 20 mg PO DAILY 06/01/23 11/22/23 insulin glargine 100 unit/mL (3 34 unit subcut DAILY 06/01/23 11/22/23 mL) subcutaneous pen (Basaglar Nohemy U-100 Insulin) acetaminophen 325 mg tablet 650 mg PO Q4H PRN Fever Or Pain 07/20/23 11/22/23 docusate sodium 100 mg capsule 100 mg PO BID 07/20/23 11/22/23 folic acid 1 mg tablet 1 mg PO DAILY 07/20/23 11/22/23 ondansetron 4 mg disintegrating 4 mg PO Q6H PRN Nausea And Vomiting 07/20/23 11/22/23 tablet adalimumab 40 mg/0.8 mL 40 mg subcut Q2W 11/22/23 11/22/23 subcutaneous syringe kit (Humira) fluticasone 500 mcg-salmeterol 50 1 ea inhalation BID 11/22/23 11/22/23 mcg/dose blistr powdr for inhalation (Wixela Inhub) insulin aspart U-100 100 unit/mL 0 sliding scale dose subcut TIDAC 11/22/23 11/22/23 (3 mL) subcutaneous pen (Novolog FlexPen U-100 Insulin aspart) methotrexate (PF) 25 mg/0.5 mL 25 mg subcut RIOS 11/22/23 11/22/23 subcutaneous auto-injector (Rasuvo (PF)) Previous Rx's ?Medication ?Instructions ?Recorded cefuroxime axetil 500 mg tablet 500 mg PO BID #4 tabs 11/28/23 dextromethorphan-guaifenesin 10 10 ml PO TID #237 mL 11/28/23 mg-100 mg/5 mL oral syrup ipratropium 0.5 mg-albuterol 3 mg 3 ml inhalation RQ4H WHILE AWAKE 11/28/23 (2.5 mg base)/3 mL nebulization #90 mL soln omeprazole 20 mg capsule,delayed 20 mg PO DAILY #30 caps 11/28/23 release prednisone 10 mg tablet 10 mg PO BID #10 tabs 11/28/23 Allergies Allergy/AdvReac Type Severity Reaction Status Date / Time rosuvastatin [From CRESTOR] Allergy Unknown Unknown Verified 02/06/24 19:44 empagliflozin Allergy Unknown Verified 02/06/24 19:44 [From Jardiance] piperacillin [From Zosyn] AdvReac Intermediate Vomiting Verified 02/06/24 19:44 tazobactam [From Zosyn] AdvReac Intermediate Vomiting Verified 02/06/24 19:44 Review of Systems Review of Systems: Yes all other systems are reviewed and are negative PMFSH Past Medical History Medical History Asthma Bacteremia Morbid (severe) obesity due to excess calories Asthma-COPD overlap syndrome Hypothyroidism Pulmonary embolism Depression Hyperlipidemia Rheumatoid arthritis Hypertension Diabetes mellitus, type 2 Social History Social History Household Members: Family Housing: House Do you presently have visiting nurse or other home services: No Alcohol intake: never Patient Tobacco Use Status: Never used Tobacco Smoked in Last 30 Days: No Use of substances other than those prescribed or required for medical reasons: No Advance Directives: Yes Advance Directives on File: Yes Advance Directives Date on File: 06/07/23 service: No Current occupational status: disabled Physical Exam Vital Signs: Vital Signs: Last Vital Signs Temp 98.6 F 02/06/24 22:27 Pulse 114 H 02/06/24 22:27 Resp 20 02/06/24 22:27 BP 140/53 H 02/06/24 22:27 Pulse Ox 93 02/06/24 22:27 O2 Del Method Room Air 02/06/24 22:27 BMI result Body Mass Index 42.1 Appearance: Alert. Oriented X3. Frequent dry cough Eyes: No pallor or icterus ENT: Pharynx normal. Oral Mucosa moist Neck: Normal inspection. Neck supple. CVS: Normal heart rate and rhythm. Pulses normal. Respiratory: Mild respiratory distress. Equal air entry bilateral, bilateral wheezing and conducted sounds Abdomen: Soft and nontender. Bowel sounds are present, no mass palpable, no CVA tenderness Skin: Skin warm and dry. Normal skin color. Normal skin turgor. Extremities: No lower extremity edema. No calf tenderness Neuro: Oriented X 3. No motor deficit. Medications Administered Discontinued Medications Generic Name Dose Route Start Last Admin Trade Name Freq PRN Reason Stop Dose Admin Acetaminophen 975 mg 02/07/24 00:25 02/07/24 00:49 Acetaminophen 325 Mg Tablet PO 02/07/24 00:26 975 mg ONCE ONE Administration Albuterol Sulfate 7.5 mg/ 10 mg 02/06/24 21:08 02/06/24 21:12 Albuterol Sulfate 2.5 mg INHALE 02/06/24 21:09 10 mg ONCE ONE Administration Guaifenesin/Codeine Phosphate 10 ml 02/06/24 19:55 02/06/24 20:10 Guaifen/Codeine Sf 200/20/10ml 10 Ml Liquid PO 02/06/24 19:56 10 ml ONCE ONE Administration Ceftriaxone Sodium 1 gm/ 50 mls @ 100 mls/hr 02/06/24 22:47 02/07/24 00:02 Sodium Chloride IV 02/06/24 23:16 Infused ONCE ONE Infusion Methylprednisolone Sodium Succinate 125 mg 02/06/24 22:44 02/06/24 23:31 Methylprednisolone Sod Succ 125 Mg/2 Ml Vial IVPUSH 02/06/24 22:45 125 mg ONCE ONE Administration Medical Decision Making Medical Decision Making [facility] Narrative: Patient asthma/COPD with acute bronchitis chest x-ray negative for infiltrate patient has elevated lactic acid with normal WBC count it is type B likely from nebulizing treatment patient clinically is not septic. Will admit patient for COPD exacerbation Differential Diagnosis Differential Diagnoses: The differential diagnosis associated with the presentation includes Bronchitis/asthma/pneumonia Admission/Observation Consideration of admission/observation: Escalation of care including admission/observation considered Consult Healthcare Provider Management of the patient was discussed with: Hospitalist Lab Data [facility] Lab Attestation statement: I reviewed the patient's lab results. 02/06/24 20:02 02/06/24 20:02 Labs: Lab Results 02/06/24 02/06/24 02/06/24 Range/Units 20:02 20:17 23:15 WBC 4.3 L (4.8-10.8) X10*3/uL RBC 3.50 L (4.20-5.50) X10*6/uL Hgb 10.4 L (12.0-16.0) g/dl Hct 32.6 L (37.0-47.0) % MCV 93.1 (80.0-98.0) fL MCH 29.7 (27.0-33.0) pg MCHC 31.9 (31.0-35.0) g/dl RDW 19.0 H (11.0-16.0) % Plt Count 130 L (160-400) X10*3/uL MPV 10.8 (9.4-12.3) fL Immature Gran % (Auto) 0.5 H (0.0-0.4) % Neut % (Auto) 59.8 (45-73) % Lymph % (Auto) 12.8 L (20-40) % [place] % (Auto) 22.3 H (2-11) % Eos % (Auto) 3.2 (0-4) % Baso % (Auto) 1.4 (0-2) % Lymph # (Auto) 0.6 L (1.2-4.9) X10*3/uL [place] # (Auto) 1.0 (0.1-1.2) X10*3/uL Eos # (Auto) 0.1 (0.0-0.4) X10*3/uL Baso # (Auto) 0.1 (0.0-0.2) X10*3/uL Abs Immat Gran (auto) 0.02 (0.00-0.03) X10*3/uL Absolute Neuts (auto) 2.6 (2.0-8.3) x10*3/uL Absolute Nucleated RBC 0.000 (0.0-0.012) X10*3/uL Nucleated RBC % (auto) 0.0 (0.0-0.2) /100WBC Smear Tech's Comments VERIFIED Sodium 136 (135-145) mmol/L Potassium 3.9 (3.3-5.1) mmol/L Chloride 100 (96-108) mmol/L Carbon Dioxide 27 (22-29) mmol/L Anion Gap 13 (12-20) BUN 15 (9-16) mg/dL Creatinine 1.15 (0.5-1.4) mg/dL Estim Creat Clear Calc 51.3 Estimated GFR 46 Random Glucose 138 H (60-115) mg/dL Lactic Acid 3.0 H* (0.5-2.0) mmol/L Calcium 9.0 (8.4-10.2) mg/dL Total Bilirubin 0.9 (0.0-1.0) mg/dL AST 99 H (5-31) U/L ALT 31 (0-31) U/L Alkaline Phosphatase 130 H (39-117) U/L Troponin I High Sens 19.7 H (<3.5-17.0) ng/L B-Natriuretic Peptide 90 (<100) pg/mL Total Protein 7.1 (6.5-8.0) g/dL Albumin 2.6 L (3.5-5.0) g/dL Influenza Type A (PCR) NEGATIVE (Negative) Influenza Type B (PCR) NEGATIVE (Negative) RSV RNA Qual (PCR) NEGATIVE (Negative) SARS-CoV-2 RNA (RT-PCR) NEGATIVE (Negative) ABG Data Attestation ABG: I personally reviewed and interpreted this ABG as follows: Interpretation: Respiratory Hypoxia Independent Interpretation I performed an independent interpretation of an: EKG and Plain X-Ray Radiology Impression Discussion of test interpretation with radiology: I have reviewed the radiologist's reading. Discharge Plan Discharge Clinical Impression: Acute exacerbation of chronic obstructive airways disease Patient Disposition: Admitted As Inpatient Print Language: Croatian
[2024-02-06 22:27] VITALS: BP 140/53; PULSE 114; RESP 20; TEMP 37; O2SAT 93
[2024-02-06] MEDS: cefTRIAXone sodium 1 GM in 0.9 % Sodium Chloride 50 ML IV (23:31)
[2024-02-06] MEDS: methylPREDNISolone Sod Succ 125 MG/2 ML VIAL IVPUSH (23:31)
[2024-02-07] MEDS: Acetaminophen 325 MG TABLET 975 MG PO (00:49)
--- NOTE | 2024-02-07 00:50 | PC.NURSE ---
Patient is alert and oriented x3, VSS. O2 Sat 95-97% RA. Patient reports chronic 5/10 pain in lower back and b/l knees pain, medicated with Tylenol 975 mg PO. Pure wick in place. Call diaz within patient's reach, caregiver Glenys at bedside.
[2024-02-07 01:21] LABS: Reflex Lactate? Lactic Acid Added
[2024-02-07 01:54] LABS: Venous Blood Gas Refer to POC result
[2024-02-07 01:57] LABS: VBG Base Excess -2.3 mmol/L; VBG HCO3 21 mmol/L (22-26); VBG pCO2 34 mmHg; VBG pO2 152 mmHg
[2024-02-07 02:09] LABS: ~Lactic Acid-LAB USE ONLY 3.6 mmol/L (0.5-2.0)
[2024-02-07] MEDS: 0.9 % Sodium Chloride 1,000 ML 999 ML IV (02:10)
--- NOTE | 2024-02-07 02:14 | PC.NURSE ---
Dr. Kirk notified of critical lactic 3.6.
--- NOTE | 2024-02-07 03:28 | P.HPHOSP_ITS ---
History of Present Illness Date of Service: 02/07/24 Chief Complaint: Dyspnea This is a 73-year-old female with pertinent history of asthma-COPD overlap syndrome not on home oxygen, history of PE on Eliquis, insulin-dependent diabetes mellitus, hypothyroidism, gastroesophageal reflux disease, mood disorder, rheumatoid arthritis who presents to the emergency department for evaluation of dyspnea. Patient states her symptoms started 2 days prior to presentation. She has been having dyspnea which is worse with exertion. Also has associated wheezing and nonproductive cough. Denies tobacco use. Denies CPAP use at night. Patient tries her home inhaler without any relief. No fever, chills, nausea, vomiting, abdominal pain, changes in urinary or bowel habits. The emergency department, patient with continued wheezing despite multiple DuoNeb treatments. Review of Systems 2 Constitutional: Constitutional: Reports no additional constitutional complaints Cardiovascular: Cardiovascular: Reports no additional cardiovascular complaints and Reports dyspnea on exertion Respiratory: Respiratory: Reports cough, Reports dyspnea on exertion and Reports wheezing Gastrointestinal: Gastrointestinal: Reports no additional gastrointestinal complaints Genitourinary: Genitourinary: Reports no additional female genitourinary complaints Allergic/Immunologic: Allergic/Immunologic: Reports wheezing [facility] Medical History Asthma Bacteremia Morbid (severe) obesity due to excess calories Asthma-COPD overlap syndrome Hypothyroidism Pulmonary embolism Depression Hyperlipidemia Rheumatoid arthritis Hypertension Diabetes mellitus, type 2 Pertinent family history: No family history of early CAD Social History Household Members: Family Housing: House Do you presently have visiting nurse or other home services: No Alcohol intake: never Patient Tobacco Use Status: Never used Tobacco Smoked in Last 30 Days: No Use of substances other than those prescribed or required for medical reasons: No Advance Directives: Yes Advance Directives on File: Yes Advance Directives Date on File: 06/07/23 service: No Current occupational status: disabled Meds Allergies Allergy/AdvReac Type Severity Reaction Status Date / Time rosuvastatin [From CRESTOR] Allergy Unknown Unknown Verified 02/06/24 19:44 empagliflozin Allergy Unknown Verified 02/06/24 19:44 [From Jardiance] piperacillin [From Zosyn] AdvReac Intermediate Vomiting Verified 02/06/24 19:44 tazobactam [From Zosyn] AdvReac Intermediate Vomiting Verified 02/06/24 19:44 Home Medications ?Medication ?Instructions ?Recorded ?Confirmed ?Last Taken ?Type albuterol sulfate 2.5 mg/3 mL 2.5 mg inhalation Q4H PRN asthma 01/20/23 11/22/23 Unknown History (0.083 %) solution for nebulization albuterol sulfate 90 mcg/actuation 2 puff inhalation Q4H PRN 01/20/23 11/22/23 01/19/23 History aerosol inhaler Shortness Of Breath Or Wheezing apixaban 5 mg tablet (Eliquis) 5 mg PO BID 01/20/23 11/22/23 11/22/23 History calcium carbonate 600 mg-vitamin 1 tab PO DAILY 01/20/23 11/22/23 11/22/23 History D3 5 mcg (200 unit) tablet citalopram 20 mg tablet 20 mg PO DAILY 01/20/23 11/22/23 11/22/23 History ferrous sulfate 325 mg (65 mg 325 mg PO DAILY 01/20/23 11/22/23 11/22/23 History iron) tablet levothyroxine 50 mcg tablet 50 mcg PO DAILY@0600 01/20/23 11/22/23 11/22/23 History montelukast 10 mg tablet 10 mg PO BEDTIME 01/20/23 11/22/23 11/21/23 History furosemide 20 mg tablet 20 mg PO DAILY 06/01/23 11/22/23 11/22/23 History insulin glargine 100 unit/mL (3 34 unit subcut DAILY 06/01/23 11/22/23 11/22/23 History mL) subcutaneous pen (Eugenia Slater U-100 Insulin) acetaminophen 325 mg tablet 650 mg PO Q4H PRN Fever Or Pain 07/20/23 11/22/23 11/22/23 History docusate sodium 100 mg capsule 100 mg PO BID 07/20/23 11/22/23 11/22/23 History folic acid 1 mg tablet 1 mg PO DAILY 07/20/23 11/22/23 11/22/23 History ondansetron 4 mg disintegrating 4 mg PO Q6H PRN Nausea And Vomiting 07/20/23 11/22/23 Unknown History tablet adalimumab 40 mg/0.8 mL 40 mg subcut Q2W 11/22/23 11/22/23 Unknown History subcutaneous syringe kit (Humira) fluticasone 500 mcg-salmeterol 50 1 ea inhalation BID 11/22/23 11/22/23 11/22/23 History mcg/dose blistr powdr for inhalation (Wixela Inhub) insulin aspart U-100 100 unit/mL 0 sliding scale dose subcut TIDAC 11/22/23 11/22/23 11/22/23 History (3 mL) subcutaneous pen (Novolog FlexPen U-100 Insulin aspart) methotrexate (PF) 25 mg/0.5 mL 25 mg subcut RIOS 11/22/23 11/22/23 11/21/23 History subcutaneous auto-injector (Rasuvo (PF)) Physical Exam 2 Vital Signs and Narrative: Vital Signs: Last Vital Signs Temp 98.6 F 02/06/24 22:27 Pulse 114 H 02/06/24 22:27 Resp 20 02/06/24 22:27 BP 140/53 H 02/06/24 22:27 Pulse Ox 93 02/06/24 22:27 O2 Del Method Room Air 02/06/24 22:27 BMI result Body Mass Index 42.1 Middle-aged female lying in bed in mild distress Neck supple, no JVD Regular rate and rhythm, S1-S2 heard Bilateral wheezing without crackles Abdomen soft nontender, no guarding, no rigidity Patient is awake, alert and oriented to self, place, time and person ; no focal motor deficit Psych: Normal mood No pedal edema Results Labs 02/07/24 04:11 02/07/24 04:11 Labs: Laboratory Results - last 24 hr 02/06/24 02/06/24 02/06/24 20:02 20:17 23:15 MCV 93.1 MCH 29.7 MCHC 31.9 RDW 19.0 H Plt Count 130 L MPV 10.8 Immature Gran % (Auto) 0.5 H Neut % (Auto) 59.8 Lymph % (Auto) 12.8 L [place] % (Auto) 22.3 H Eos % (Auto) 3.2 Baso % (Auto) 1.4 Lymph # (Auto) 0.6 L [place] # (Auto) 1.0 Eos # (Auto) 0.1 Baso # (Auto) 0.1 Abs Immat Gran (auto) 0.02 Absolute Neuts (auto) 2.6 Absolute Nucleated RBC 0.000 Nucleated RBC % (auto) 0.0 Smear Tech's Comments VERIFIED VBG pH VBG pCO2 VBG pO2 VBG HCO3 VBG O2 Saturation VBG Base Excess Anion Gap 13 Estim Creat Clear Calc 51.3 Estimated GFR 46 Random Glucose 138 H Lactic Acid 3.0 H* Lactic Acid F/U @ 2Hr Calcium 9.0 Total Bilirubin 0.9 AST 99 H ALT 31 Alkaline Phosphatase 130 H Troponin I High Sens 19.7 H B-Natriuretic Peptide 90 Total Protein 7.1 Albumin 2.6 L Influenza Type A (PCR) NEGATIVE Influenza Type B (PCR) NEGATIVE RSV RNA Qual (PCR) NEGATIVE SARS-CoV-2 RNA (RT-PCR) NEGATIVE 02/07/24 02/07/24 01:49 Unknown MCV MCH MCHC RDW Plt Count MPV Immature Gran % (Auto) Neut % (Auto) Lymph % (Auto) [place] % (Auto) Eos % (Auto) Baso % (Auto) Lymph # (Auto) [place] # (Auto) Eos # (Auto) Baso # (Auto) Abs Immat Gran (auto) Absolute Neuts (auto) Absolute Nucleated RBC Nucleated RBC % (auto) Smear Tech's Comments VBG pH 7.40 VBG pCO2 34 VBG pO2 152 VBG HCO3 21 L VBG O2 Saturation 99.0 VBG Base Excess -2.3 Anion Gap Estim Creat Clear Calc Estimated GFR Random Glucose Lactic Acid Lactic Acid F/U @ 2Hr 3.6 H* Calcium Total Bilirubin AST ALT Alkaline Phosphatase Troponin I High Sens B-Natriuretic Peptide Total Protein Albumin Influenza Type A (PCR) Influenza Type B (PCR) RSV RNA Qual (PCR) SARS-CoV-2 RNA (RT-PCR) Imaging Radiologist's Impressions: Impressions Chest X-Ray 02/06/24 19:55 IMPRESSION: Persistent left base pleural-parenchymal opacity. There was left lower lung disease and pleural fluid on CT 01/02/24 No new pneumonia Assessment and Plan (1) Acute exacerbation of chronic obstructive airways disease: Status: Acute Plan This is a 73-year-old female with pertinent history of asthma-COPD overlap syndrome not on home oxygen, history of PE on Eliquis, insulin-dependent diabetes mellitus, hypothyroidism, gastroesophageal reflux disease, mood disorder, rheumatoid arthritis who presents to the emergency department for evaluation of dyspnea. #. Acute exacerbation of asthma-COPD overlap syndrome: Will admit patient and continue IV systemic steroids. Scheduled and p.r.n. DuoNebs. Continue home inhaler. Is on montelukast #. History of PE: On Eliquis #. Hypothyroidism: On Synthroid #. Insulin-dependent diabetes mellitus: Initiating Accu-Cheks with sliding scale insulin before meals and at bedtime. Basal regimen once verified by pharmacy #. Major depressive disorder: Continue home mood stabilizers #. Gastroesophageal reflux disease: On PPI #. Obesity: Counseled regarding diet and exercise Med rec pending DVT prophylaxis: Lovenox Full code Quality Stroke Does the patient have a stroke diagnosis?: No VTE Prior VTE?: No VTE Risk Level:: Medical - moderate - high VTE Device Contraindication: Treatment Not Indicated VTE Drug Contraindication: N/A - Med Ordered
--- NOTE | 2024-02-07 03:36 | PC.NURSE ---
this rn assumed care of pt, pt resting in stretcher, no acute distress noted. pt sating 96-98% on room air, normal sinus on tele 95-97bpm.
[2024-02-07 03:52] LABS: Reflex Lactate? 2 Y
[2024-02-07 04:30] LABS: ~Lactic Acid-LAB USE ONLY 3.9 mmol/L (0.5-2.0)
--- NOTE | 2024-02-07 04:30 | PC.NURSE ---
critical lactic 3.9, results send to at this time.
[2024-02-07 04:48] LABS: MANUAL DIFF FLAG NO
[2024-02-07 04:51] LABS: Basophils Percent Auto 0.9 % (0-2); Hematocrit 31.7 % (37.0-47.0); Hemoglobin 10.3 g/dl (12.0-16.0); Imm Gran Abs Auto 0.07 X10*3/uL (0.00-0.03); Lymphocytes Absolute Auto 0.3 X10*3/uL (1.2-4.9); Lymphocytes Percent Auto 8.1 % (20-40); Mean Corpuscular HGB Conc 32.5 g/dl (31.0-35.0); Mean Corpuscular Hemoglobin 30.3 pg (27.0-33.0); Mean Corpuscular Volume 93.2 fL (80.0-98.0); Mean Platelet Volume 11.4 fL (9.4-12.3); Monocytes Absolute Auto 0.1 X10*3/uL (0.1-1.2); Monocytes Percent Auto 3.8 % (2-11); Neutrophils Percent Auto 85.2 % (45-73); Platelet Count 119 X10*3/uL (160-400); Red Cell Distribution Width 19.2 % (11.0-16.0); White Blood Count 3.5 X10*3/uL (4.8-10.8)
[2024-02-07 05:04] LABS: Anion Gap 15 (12-20); Blood Urea Nitrogen 17 mg/dL (9-16); Calcium 8.5 mg/dL (8.4-10.2); Carbon Dioxide 20 mmol/L (22-29); Chloride 102 mmol/L (96-108); Estimated Glomerular Filt Rate 48; Glucose Random 291 mg/dL (60-115); Potassium 4.6 mmol/L (3.3-5.1); Sodium 132 mmol/L (135-145)
[2024-02-07 05:55] VITALS: BP 126/56; PULSE 89; RESP 18; TEMP 36.6; O2SAT 92
[2024-02-07 07:17] VITALS: PULSE 89; RESP 18; O2SAT 95
[2024-02-07] MEDS: Albuterol/Iprat 2.5/0.5MG 3 ML AMPUL.NEB INHALE ×4 (07:17→18:44)
[2024-02-07 07:31] VITALS: BP 140/65; PULSE 93; RESP 22; TEMP 36.6; O2SAT 96
[2024-02-07 07:38] LABS: Glucose, Whole Blood 345 mg/dL (60-115)
[2024-02-07] MEDS: Insulin Lispro 100 UNIT/ML 3 ML VIAL SUBCUT ×4 (07:38→20:48)
[2024-02-07] MEDS: methylPREDNISolone Sod Succ 40 MG/ML VIAL IVPUSH ×2 (07:38→18:27)
[2024-02-07] MEDS: 0.9 % Sodium Chloride Flush 3 ML SYRINGE IVFLUSH ×3 (07:39→23:08)
[2024-02-07 08:27] VITALS: BMI 43.0
--- NOTE | 2024-02-07 09:31 | P.PNIM_ITS ---
Subjective Subjective Date of Service: 02/07/24 Interval History: imprvoing sob Physical Exam 2 Vital Signs: Vital Signs: Last Vital Signs Temp 97.8 F 02/07/24 07:31 Pulse 93 02/07/24 07:31 Resp 22 H 02/07/24 07:31 BP 140/65 H 02/07/24 07:31 Pulse Ox 96 02/07/24 07:31 O2 Del Method Room Air 02/07/24 07:31 BMI result Body Mass Index 43.0 General: AO X 3, resting tremor Resp: CTA bilateral, no accessory muscles used CVS: S1,S2,RRR GI: soft, non tender, non distended Neuro: motor grossly intact, alert Psych: appropriate affect, appropriate insight Objective Data Active Medications Acetaminophen (Acetaminophen 325 Mg Tablet) 650 mg PO Q6H PRN PRN Reason: Pain, Mild (Pain Scale 1-3) Albuterol/Ipratropium (Albuterol/Iprat 2.5/0.5mg 3 Ml Ampul.Neb) 3 ml INHALE RQ4H WHILE AWAKE [facility] Last Admin: 02/07/24 07:17 Dose: 3 ml Documented By: TOM Albuterol/Ipratropium (Albuterol/Iprat 2.5/0.5mg 3 Ml Ampul.Neb) 3 ml INHALE Q4H PRN PRN Reason: Wheezing Glucose (Glucose Gel 15 Gm Gel..Gram.) 15 gm PO Q15M PRN; Protocol PRN Reason: per Hypoglycemia Standing Ord. Dextrose (D10) 250 mls @ 750 mls/hr IV Q15M PRN; Protocol PRN Reason: per Hypoglycemia Standing Ord. Insulin Human Lispro (Insulin Lispro 100 Unit/Ml 3 Ml Vial) 0 unit SUBCUT QIDACHS [facility]; Protocol Last Admin: 02/07/24 07:38 Dose: 8 unit Documented By: MARYSE Melatonin (Melatonin 3 Mg Tablet) 6 mg PO BEDTIME PRN PRN Reason: Insomnia Methylprednisolone Sodium Succinate (Methylprednisolone Sod Succ 40 Mg/Ml Vial) 40 mg IVPUSH Q12H [facility] Last Admin: 02/07/24 07:38 Dose: 40 mg Documented By: MARYSE Ondansetron HCl (Ondansetron Hcl 4 Mg/2 Ml Vial) 4 mg IVPUSH Q8H PRN PRN Reason: Nausea and Vomiting Sodium Chloride (0.9 % Sodium Chloride Flush 3 Ml Syringe) 3 ml IVFLUSH QSHIFT [facility] Last Admin: 02/07/24 07:39 Dose: 3 ml Documented By: MARYSE Labs 02/07/24 04:11 02/07/24 04:11 Labs: Laboratory Results - last 24 hr 02/06/24 02/06/24 02/06/24 20:02 20:17 23:15 MCV 93.1 MCH 29.7 MCHC 31.9 RDW 19.0 H Plt Count 130 L MPV 10.8 Immature Gran % (Auto) 0.5 H Neut % (Auto) 59.8 Lymph % (Auto) 12.[address] [place] % (Auto) 22.3 H Eos % (Auto) 3.2 Baso % (Auto) 1.4 Lymph # (Auto) 0.[address] [place] # (Auto) 1.0 Eos # (Auto) 0.1 Baso # (Auto) 0.1 Abs Immat Gran (auto) 0.02 Absolute Neuts (auto) 2.6 Absolute Nucleated RBC 0.000 Nucleated RBC % (auto) 0.0 Smear Tech's Comments VERIFIED VBG pH VBG pCO2 VBG pO2 VBG HCO3 VBG O2 Saturation VBG Base Excess Anion Gap 13 Estim Creat Clear Calc 51.3 Estimated GFR 46 POC Glucose Random Glucose 138 H Lactic Acid 3.0 H* Lactic Acid F/U @ 2Hr Lactic Acid F/U @ 4Hr Calcium 9.0 Total Bilirubin 0.9 AST 99 H ALT 31 Alkaline Phosphatase 130 H Troponin I High Sens 19.7 H B-Natriuretic Peptide 90 Total Protein 7.1 Albumin 2.6 L Influenza Type A (PCR) NEGATIVE Influenza Type B (PCR) NEGATIVE RSV RNA Qual (PCR) NEGATIVE SARS-CoV-2 RNA (RT-PCR) NEGATIVE 02/07/24 02/07/24 02/07/24 01:49 04:11 07:33 MCV 93.2 MCH 30.3 MCHC 32.5 RDW 19.2 H Plt Count 119 L MPV 11.4 Immature Gran % (Auto) 2.0 H Neut % (Auto) 85.2 H Lymph % (Auto) 8.[address] [place] % (Auto) 3.8 Eos % (Auto) 0.0 Baso % (Auto) 0.9 Lymph # (Auto) 0.[address] [place] # (Auto) 0.1 Eos # (Auto) 0.0 Baso # (Auto) 0.0 Abs Immat Gran (auto) 0.07 H Absolute Neuts (auto) 3.0 Absolute Nucleated RBC 0.000 Nucleated RBC % (auto) 0.0 Smear Tech's Comments VBG pH 7.40 VBG pCO2 34 VBG pO2 152 VBG HCO3 21 L VBG O2 Saturation 99.0 VBG Base Excess -2.3 Anion Gap 15 Estim Creat Clear Calc 53.0 Estimated GFR 48 POC Glucose 345 H Random Glucose 291 H Lactic Acid Lactic Acid F/U @ 2Hr Lactic Acid F/U @ 4Hr 3.9 H* Calcium 8.5 Total Bilirubin AST ALT Alkaline Phosphatase Troponin I High Sens B-Natriuretic Peptide Total Protein Albumin Influenza Type A (PCR) Influenza Type B (PCR) RSV RNA Qual (PCR) SARS-CoV-2 RNA (RT-PCR) 02/07/24 Unknown MCV MCH MCHC RDW Plt Count MPV Immature Gran % (Auto) Neut % (Auto) Lymph % (Auto) [facility] [place] % (Auto) Eos % (Auto) Baso % (Auto) Lymph # (Auto) [facility] [place] [facility] # (Auto) Eos # (Auto) Baso # (Auto) Abs Immat Gran (auto) Absolute Neuts (auto) Absolute Nucleated RBC Nucleated RBC % (auto) Smear Tech's Comments VBG pH VBG pCO2 VBG pO2 VBG HCO3 VBG O2 Saturation VBG Base Excess Anion Gap Estim Creat Clear Calc Estimated GFR POC Glucose Random Glucose Lactic Acid Lactic Acid F/U @ 2Hr 3.6 H* Lactic Acid F/U @ 4Hr Calcium Total Bilirubin AST ALT Alkaline Phosphatase Troponin I High Sens B-Natriuretic Peptide Total Protein Albumin Influenza Type A (PCR) Influenza Type B (PCR) RSV RNA Qual (PCR) SARS-CoV-2 RNA (RT-PCR) Assessment and Plan (1) Acute exacerbation of chronic obstructive airways disease: Status: Acute Plan 73F PMH moderate persistent asthma/COPD, history of pulmonary embolism on Eliquis, diabetes, hypothyroid, GERD, mood disorder, rheumatoid arthritis, morbid obesity, nonalcoholic fatty liver/early cirrhosis presented with shortness of breath Moderate persistent asthma/COPD with acute decompensation IV steroids, bronchodilators History of PE Continue Eliquis Hypothyroid Continue Synthroid Diabetes Insulin sliding scale Morbid obesity Weight loss recommended GRIMES Outpatient follow-up Full code reason for continued hospitalization: Still short of breath Quality Stroke Does the patient have a stroke diagnosis?: No VTE Prior VTE?: No VTE Risk Level:: Medical - moderate - high VTE Device Contraindication: Treatment Not Indicated VTE Drug Contraindication: N/A - Med Ordered
--- NOTE | 2024-02-07 11:03 | PHA.MEDREC ---
Pharmacy Consult ? Medication Reconciliation Pharmacy has completed the medication reconciliation.Pt had list we reviewed and compared to claim history. Next dose of Humira due on 02/09/24. Metformin on hold pt states it may be damaging her liver.
[2024-02-07 11:53] LABS: Glucose, Whole Blood 373 mg/dL (60-115)
--- NOTE | 2024-02-07 12:39 | MHC.CM.PN ---
pt lives with sister they had mow .pt has own ride home dc plan home no servies
[2024-02-07 15:46] VITALS: BP 169/70; PULSE 99; RESP 20; TEMP 36.8; O2SAT 92
[2024-02-07 16:33] LABS: Glucose, Whole Blood 400 mg/dL (60-115)
[2024-02-07] MEDS: Insulin Lispro 100 UNIT/ML 3 ML VIAL 7 UNIT SUBCUT ×2 (16:49→20:56)
[2024-02-07 18:44] VITALS: PULSE 95; RESP 20; O2SAT 95
[2024-02-07 20:00] VITALS: BP 131/59; PULSE 110; RESP 20; TEMP 37; O2SAT 92
[2024-02-07 20:28] LABS: Glucose, Whole Blood 352 mg/dL (60-115)
[2024-02-07] MEDS: Lactulose 20 GM/30 ML SOLUTION 6.66667 GM PO (20:47)
[2024-02-07] MEDS: Insulin Glargine,Hum.rec.anlog 100 UNIT/ML 10 ML VIAL 50 UNIT SUBCUT (20:48)
[2024-02-07] MEDS: Apixaban 5 MG TABLET PO (20:48)
[2024-02-07] MEDS: Montelukast Sodium 10 MG TABLET PO (20:48)
[2024-02-07] MEDS: Atorvastatin Calcium 10 MG TABLET PO (20:48)
[2024-02-07] MEDS: Melatonin 3 MG TABLET 6 MG PO (23:07)
[2024-02-08 03:44] VITALS: BP 138/63; PULSE 90; RESP 14; TEMP 36.1; O2SAT 93
[2024-02-08] MEDS: Levothyroxine Sodium 50 MCG TABLET PO (05:51)
[2024-02-08 07:06] LABS: Hematocrit 32.3 % (37.0-47.0); Hemoglobin 10.5 g/dl (12.0-16.0); Mean Corpuscular HGB Conc 32.5 g/dl (31.0-35.0); Mean Corpuscular Hemoglobin 29.5 pg (27.0-33.0); Mean Corpuscular Volume 90.7 fL (80.0-98.0); Mean Platelet Volume 10.9 fL (9.4-12.3); Platelet Count 124 X10*3/uL (160-400); Red Blood Count 3.56 X10*6/uL (4.20-5.50); Red Cell Distribution Width 18.4 % (11.0-16.0); White Blood Count 7.7 X10*3/uL (4.8-10.8)
[2024-02-08 07:21] LABS: Anion Gap 12 (12-20); Blood Urea Nitrogen 34 mg/dL (9-16); Calcium 8.4 mg/dL (8.4-10.2); Carbon Dioxide 22 mmol/L (22-29); Chloride 100 mmol/L (96-108); Creatinine Clr Calc Pharmacy 56.3; Estimated Glomerular Filt Rate 51; Glucose Fasting 237 mg/dL (60-99); Sodium 129 mmol/L (135-145)
[2024-02-08 07:40] LABS: Glucose, Whole Blood 244 mg/dL (60-115)
--- NOTE | 2024-02-08 07:56 | P.DS_ITS ---
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 Patient states her symptoms started 2 days prior to presentation. She has been having dyspnea which is worse with exertion. Also has associated wheezing and nonproductive cough. Denies tobacco use. Denies CPAP use at night. Patient tries her home inhaler without any relief. No fever, chills, nausea, vomiting, abdominal pain, changes in urinary or bowel habits. The emergency department, patient with continued wheezing despite multiple DuoNe b treatments. hospital course: Patient was admitted for moderate persistent asthma/COPD with acute decompensation. She was treated with IV steroids and DuoNebs. Her shortness of breath significantly improved and she has no longer wheezing. She will be discharged home on 5 more days of prednisone. For history of pulmonary embolism she was continue on Eliquis. For hypothyroidism she was continued on levothyroxine. For diabetes she was continued on insulin sliding scale course was complicated by hyperglycemia and insulin was adjusted accordingly. For morbid obesity weight loss recommended. For nonalcoholic steatohepatitis/ early cirrhosis weight loss and tighter glycemic control is recommended. She should follow up outpatient. Patient is feeling better will be discharged home. Time Attestation Discharge Coordination Time (in mins): 35 Quality: Safe Use of Opioids Does Pt have an Active Cancer Diagnosis on the Problem List?: No Quality: Stroke Does the patient have a stroke diagnosis?: No Physical Exam Vital Signs: Vital Signs: Last Vital Signs Temp 96.9 F 02/08/24 03:44 Pulse 90 02/08/24 03:44 Resp 14 02/08/24 03:44 BP 138/63 02/08/24 03:44 Pulse Ox 93 02/08/24 03:44 O2 Del Method Room Air 02/08/24 03:44 BMI result Body Mass Index 43.0 General: AO X 3, no acute distress Resp: CTA bilateral, no accessory muscles used CVS: S1,S2,RRR GI: soft, non tender, non distended Neuro: motor grossly intact, alert, resting tremor Psych: appropriate affect, appropriate insight DS: Data Data Completed and Pending Completed studies during hospitalization [Text1]: Procedures Insertion of Infusion Device into Superior Vena Cava, Percutaneous Approach (06/01/23) Ultrasonography of Superior Vena Cava, Guidance (06/01/23) Labs on day of discharge: Laboratory Results - last 24 hr 02/07/24 02/07/24 02/07/24 11:50 16:30 20:24 WBC RBC Hgb Hct MCV MCH MCHC RDW Plt Count MPV Absolute Nucleated RBC Nucleated RBC % (auto) Sodium Potassium Chloride Carbon Dioxide Anion Gap BUN Creatinine Estim Creat Clear Calc Estimated GFR POC Glucose 373 H* 400 H* 352 H* Fasting Glucose Calcium 02/08/24 02/08/24 05:52 07:31 WBC 7.7 RBC 3.56 L Hgb 10.5 L Hct 32.3 L MCV 90.7 MCH 29.5 MCHC 32.5 RDW 18.4 H Plt Count 124 L MPV 10.9 Absolute Nucleated RBC 0.000 Nucleated RBC % (auto) 0.0 Sodium 129 L Potassium 5.0 Chloride 100 Carbon Dioxide 22 Anion Gap 12 BUN 34 H Creatinine 1.06 Estim Creat Clear Calc 56.3 Estimated GFR 51 POC Glucose 244 H Fasting Glucose 237 H Calcium 8.4 Preliminary micro results at discharge 02/06/24 23:15 Blood Culture - Preliminary Blood - Venous No growth after 24 hours. 02/06/24 23:15 Blood Culture - Preliminary Blood - Venous No growth after 24 hours. Discharge Plan Discharge Anticipated Discharge Date/Time: 02/08/24 07:54 Patient Disposition: Home, Self-Care Discharge Diagnosis: copd Referrals: Aydin Leo MD [Primary Care Provider] - 1 Week Discharge Medications: New prednisone 20 mg tablet 40 mg PO DAILY Qty: 10 0RF Continued levothyroxine 50 mcg tablet 50 mcg PO DAILY@0600 montelukast 10 mg tablet 10 mg PO BEDTIME Eliquis 5 mg tablet 5 mg PO BID albuterol sulfate 90 mcg/actuation HFA aerosol inhaler 2 puff INHALATION Q4H PRN (Reason: Shortness Of Breath Or Wheezing) citalopram 20 mg tablet 20 mg PO DAILY calcium carbonate-vitamin D3 600 mg-5 mcg (200 unit) Tablet 1 tab PO DAILY ferrous sulfate 325 mg (65 mg iron) Tablet 325 mg PO DAILY fluticasone propion-salmeterol [Wixela Inhub] 500-50 mcg/dose blister with device 1 ea inhalation BID Humira 40 mg/0.8 mL syringe kit 40 mg subcut Q14D Novolin R FlexPen 100 unit/mL (3 mL) insulin pen 40 unit subcut TID lactulose [Enulose] 10 gram/15 mL solution 10 ml PO BID spironolactone 100 mg tablet 100 mg PO DAILY simvastatin 20 mg tablet 20 mg PO BEDTIME furosemide 20 mg tablet 20 mg PO DAILY insulin glargine [Basaglar KwikPen U-100 Insulin] 100 unit/mL (3 mL) insulin pen 50 unit subcut BID docusate sodium 100 mg Capsule 100 mg PO BID PRN (Reason: Constipation) folic acid 1 mg tablet 1 mg PO DAILY Discharge Orders: Discharge Order (Routine); Ordered 02/08/24 Ordered By: Suhas Hayward Diet: Advance to usual diet Activity on Discharge: As tolerated Stand Alone Forms: Patient Portal Discharge page Print Language: Sinhala Care Plan Goals: recovery Health Concerns: copd Plan of Treatment: 5 days prednisone Assessment: see above
[2024-02-08 08:00] VITALS: BP 131/60; PULSE 68; RESP 14; TEMP 36; O2SAT 92
[2024-02-08] MEDS: Lactulose 20 GM/30 ML SOLUTION 6.66667 GM PO (08:09)
[2024-02-08] MEDS: Folic Acid 1 MG TABLET PO (08:09)
[2024-02-08] MEDS: Escitalopram Oxalate 10 MG TABLET PO (08:10)
[2024-02-08 08:11] VITALS: BP 138/63
[2024-02-08] MEDS: Furosemide 20 MG TABLET PO (08:11)
[2024-02-08] MEDS: Spironolactone 25 MG TABLET 100 MG PO (08:11)
[2024-02-08] MEDS: Apixaban 5 MG TABLET PO (08:11)
[2024-02-08] MEDS: Insulin Lispro 100 UNIT/ML 3 ML VIAL SUBCUT (08:12)
[2024-02-08] MEDS: methylPREDNISolone Sod Succ 40 MG/ML VIAL IVPUSH (08:12)
[2024-02-08] MEDS: Insulin Glargine,Hum.rec.anlog 100 UNIT/ML 10 ML VIAL 50 UNIT SUBCUT (08:12)
[2024-02-08] MEDS: Insulin Lispro 100 UNIT/ML 3 ML VIAL 7 UNIT SUBCUT (08:13)
[2024-02-08] MEDS: 0.9 % Sodium Chloride Flush 3 ML SYRINGE IVFLUSH (08:13)
--- NOTE | 2024-02-08 08:43 | MHC.CM.PN ---
pt dcd home self care
[2024-02-08] MEDS: Albuterol/Iprat 2.5/0.5MG 3 ML AMPUL.NEB INHALE (09:11)
[2024-02-08] MEDS: Fluticasone/Vilanterol 200/25 BLST.W.DEV 1 PUFF INHALE (09:11)
[2024-02-08 09:13] VITALS: PULSE 93; RESP 20; O2SAT 98
== END 2024-02-08 10:53 | disposition home or self-care (01) ==
LOC: HO.ED 02-07 01:13 → HO.EDOVER 02-07 03:31 → HO.S3 02-07 07:31
PROVIDERS: Admitting Provider Student in an Organized Health Care Education/Training Program; Emergency Provider Internal Medicine; PCP Internal Medicine; Visit Provider Internal Medicine
DX: J44.1 Chronic obstructive pulmonary disease with (acute) exacerbation (principal); J45.41 Moderate persistent asthma with (acute) exacerbation; R05.9 Cough, unspecified; E11.9 Type 2 diabetes mellitus without complications; E78.5 Hyperlipidemia, unspecified; E03.9 Hypothyroidism, unspecified; M06.9 Rheumatoid arthritis, unspecified; I10 Essential (primary) hypertension; R00.0 Tachycardia, unspecified; E87.20 Acidosis, unspecified; I26.99 Other pulmonary embolism without acute cor pulmonale; K21.9 Gastro-esophageal reflux disease without esophagitis; F32.9 Major depressive disorder, single episode, unspecified; E66.01 Morbid (severe) obesity due to excess calories; Z68.41 Body mass index [BMI] 40.0-44.9, adult; Z79.01 Long term (current) use of anticoagulants; Z79.4 Long term (current) use of insulin; Z79.899 Other long term (current) drug therapy
CPT/HCPCS: 0241U; 36415; 71045; 71250; 80048; 80053; 82803; 82947; 83605; 83880; 84484; 85025; 85027; 87040; 93005; 94640; 96361; 96365; 96375; 96376; 99221; 99285; J0696; J2919

== ENCOUNTER → 2024-02-06 19:47 | Outpatient (BNV) | payer MEDICARE, SELFPAY | PROVIDERS: Admitting Provider Student in an Organized Health Care Education/Training Program; Emergency Provider Internal Medicine; PCP Internal Medicine; Visit Provider Internal Medicine | DX: I44.0 Atrioventricular block, first degree (principal) | CPT/HCPCS: 93010 ==

== ENCOUNTER → 2024-02-07 03:25 | Outpatient (BNV) | payer MEDICARE, SELFPAY | PROVIDERS: Admitting Provider Student in an Organized Health Care Education/Training Program; Emergency Provider Internal Medicine; PCP Internal Medicine; Visit Provider Student in an Organized Health Care Education/Training Program | DX: J44.1 Chronic obstructive pulmonary disease with (acute) exacerbation (principal) | CPT/HCPCS: 99222; 99239; 99499 ==

== ENCOUNTER 2024-02-11 04:36 | Inpatient (IN) | payer MEDICARE, SELFPAY ==
[2024-02-11] VITALS (22 sets, daily range): BP systolic 104–157; BP diastolic 42–104; PULSE 70–160; RESP 15–25; TEMP 34.1–36.8; O2SAT 93–98; BMI 41.6; BMI 40.8
--- NOTE | 2024-02-11 | ECG_ITS ---
Test Reason : FALL Blood Pressure : / mmHG Vent. Rate : 090 BPM Atrial Rate : 000 BPM P-R Int : 000 ms QRS Dur : 082 ms QT Int : 384 ms P-R-T Axes : 000 -16 054 degrees QTc Int : 469 ms Atrial fibrillation Septal infarct (cited on or before 20-JAN-2023) Abnormal ECG When compared with ECG of 06-FEB-2024 19:46, Atrial fibrillation has replaced Sinus rhythm Referred By: Generic ED Physician Electronically Signed By:BYRON FARR
--- NOTE | ~2024-02-11 | XR_ITS ---
EXAMINATION: XR CHEST CLINICAL INFORMATION: Portable views COMPARISON: 02/06/2024 TECHNIQUE: Frontal view of the chest was obtained. FINDINGS: Lung volumes are symmetric. Left basilar aeration appears improved compared to prior, though slight residual opacity is difficult to exclude. No evidence of pneumothorax. There is suggestion of a residual small left pleural effusion. The cardiomediastinal silhouette is stable. No acute osseous findings are seen. XR/XR chest 1V IMPRESSION: Improved left basilar aeration compared to prior, though slight residual opacity is difficult to exclude along with small left pleural effusion.
--- NOTE | ~2024-02-11 | CT_ITS ---
EXAMINATION: CT CERVICAL SPINE WITHOUT CONTRAST CLINICAL INFORMATION: Neck trauma COMPARISON: Previous cervical spine CT July 2023 TECHNIQUE: Axial images through the cervical spine without IV contrast. Sagittal and coronal reconstructions on the technologist workstation. This CT examination was performed using dose optimization techniques as appropriate, variously including the following: *Automated exposure control *Adjustment of mA and/or kV according to patient size (this includes techniques or standardized protocols for targeted exams where dose is matched to indication/reason for exam; i.e. extremities or head) *Use of iterative reconstruction technique DLP: 817 mGy-cm FINDINGS: Bone alignment is normal. No fracture or dislocation. Degenerative spondylosis and degenerative disc disease at C5-C6 and C6-C7. Degenerative changes at the C1 dens articulation. Prevertebral soft tissues are normal. Bilateral carotid calcification. Medial course of the carotid arteries. Lung apices are clear. CT/CT cervical spine wo IV con IMPRESSION: No fracture or dislocation. Mild degenerative changes. Fleischner guidelines were followed.
--- NOTE | ~2024-02-11 | XR_ITS ---
EXAMINATION: XR KNEE, RIGHT CLINICAL INFORMATION: Status post fall COMPARISON: 05/06/2022 TECHNIQUE: Two views of the right knee. FINDINGS: Total knee arthroplasty hardware appears well seated and in anatomic alignment. No acute fracture is seen. Mild chronic deformities of the distal femur and proximal tibia. No significant knee effusion. Vascular calcifications are noted. XR/XR knee RT 2V IMPRESSION: No acute findings identified. Total knee arthroplasty hardware in anatomic alignment.
--- NOTE | ~2024-02-11 | CT_ITS ---
EXAMINATION: CT HEAD WITHOUT CONTRAST CLINICAL INFORMATION: Head trauma COMPARISON: Previous head CT July 2023 TECHNIQUE: Contiguous axial imaging was performed from the skull base to vertex without intravenous administration of contrast. This CT examination was performed using dose optimization techniques as appropriate, variously including the following: *Automated exposure control *Adjustment of mA and/or kV according to patient size (this includes techniques or standardized protocols for targeted exams where dose is matched to indication/reason for exam; i.e. extremities or head) *Use of iterative reconstruction technique DLP: 817 mGy-cm FINDINGS: There is no evidence of an extra-axial collection. There is no evidence of intra or extra-axial hemorrhage. The ventricles and extra-axial CSF spaces are prominent suggestive of generalized atrophy. There is nonspecific periventricular white matter disease. No mass, mass effect or infarct is seen. No skull fracture. There is membranous soft tissue thickening and partial soft tissue opacification of the bilateral frontal, ethmoid, maxillary and sphenoid sinuses suggestive of mild inflammatory change new from previous exam. Visualized mastoid air cells and middle ears are clear. Degenerative changes of the temporomandibular joints.. CT/CT head/brain wo IV con IMPRESSION: No acute cranial findings. Generalized atrophy and nonspecific periventricular white matter disease. Sinusitis.
[2024-02-11 05:16] LABS: Glucose, Whole Blood 96 mg/dL (60-115)
[2024-02-11 06:04] LABS: Glucose, Whole Blood 63 mg/dL (60-115)
[2024-02-11 06:05] LABS: MANUAL DIFF FLAG NO
[2024-02-11 06:08] LABS: Basophils Percent Auto 0.4 % (0-2); Eosinophils Absolute Auto 0.2 X10*3/uL (0.0-0.4); Eosinophils Percent Auto 2.2 % (0-4); Hematocrit 42.8 % (37.0-47.0); Imm Gran Abs Auto 0.08 X10*3/uL (0.00-0.03); Lymphocytes Absolute Auto 1.5 X10*3/uL (1.2-4.9); Lymphocytes Percent Auto 18.6 % (20-40); Mean Corpuscular HGB Conc 32.7 g/dl (31.0-35.0); Mean Corpuscular Volume 91.8 fL (80.0-98.0); Mean Platelet Volume 10.5 fL (9.4-12.3); Monocytes Absolute Auto 1.5 X10*3/uL (0.1-1.2); Neutrophils Percent Auto 59.8 % (45-73); Platelet Count 148 X10*3/uL (160-400); Red Blood Count 4.66 X10*6/uL (4.20-5.50); White Blood Count 8.3 X10*3/uL (4.8-10.8)
[2024-02-11 06:52] LABS: Glucose, Whole Blood 82 mg/dL (60-115)
--- NOTE | 2024-02-11 07:18 | ED_ITS ---
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 She was just admitted here for COPD and discharged on 02/07 for COPD and sent home on 5 day course of prednisone. She reports she fell some time last night she remembers getting up to go to the bathroom but then was on the floor. She is not sure how long. + head strike. EMS found her to have a blood sugar of 46 given D10 250mL. She was also given duoneb for wheezes. The patient notes she hasn't been doing well since she went home. She feels short of breath and has R knee pain from the fall. MD complaint: fall Onset (ago): hour(s) (within last few) Fall from: standing Fall witnessed: no Place fall occurred: home Loss of consciousness: yes Prolonged down time: unclear Context: other (unsure) Location of injury: head Location of injury - extremities: right: knee Severity: moderate Quality: aching Associated symptoms (after fall): unable to walk Related Data Home Medications ?Medication ?Instructions ?Recorded ?Confirmed albuterol sulfate 90 mcg/actuation 2 puff inhalation Q4H PRN 01/20/23 02/07/24 aerosol inhaler Shortness Of Breath Or Wheezing apixaban 5 mg tablet (Eliquis) 5 mg PO BID 01/20/23 02/07/24 calcium carbonate 600 mg-vitamin 1 tab PO DAILY 01/20/23 02/07/24 D3 5 mcg (200 unit) tablet citalopram 20 mg tablet 20 mg PO DAILY 01/20/23 02/07/24 ferrous sulfate 325 mg (65 mg 325 mg PO DAILY 01/20/23 02/07/24 iron) tablet levothyroxine 50 mcg tablet 50 mcg PO DAILY@0600 01/20/23 02/07/24 montelukast 10 mg tablet 10 mg PO BEDTIME 01/20/23 02/07/24 furosemide 20 mg tablet 20 mg PO DAILY 06/01/23 02/07/24 insulin glargine 100 unit/mL (3 50 unit subcut BID 06/01/23 02/07/24 mL) subcutaneous pen (Basaglar KwikPen U-100 Insulin) docusate sodium 100 mg capsule 100 mg PO BID PRN Constipation 07/20/23 02/07/24 folic acid 1 mg tablet 1 mg PO DAILY 07/20/23 02/07/24 adalimumab 40 mg/0.8 mL 40 mg subcut Q14D 11/22/23 02/07/24 subcutaneous syringe kit (Humira) fluticasone 500 mcg-salmeterol 50 1 ea inhalation BID 11/22/23 02/07/24 mcg/dose blistr powdr for inhalation (Wixela Inhub) insulin regular human 100 unit/mL 40 unit subcut TID 02/07/24 02/07/24 (3 mL) subcutaneous pen (Novolin R FlexPen) lactulose 10 gram/15 mL oral 10 ml PO BID 02/07/24 02/07/24 solution (Enulose) simvastatin 20 mg tablet 20 mg PO BEDTIME 02/07/24 02/07/24 spironolactone 100 mg tablet 100 mg PO DAILY 02/07/24 02/07/24 Previous Rx's ?Medication ?Instructions ?Recorded prednisone 20 mg tablet 40 mg (2 x 20 mg) PO DAILY #10 tabs 02/08/24 Allergies Allergy/AdvReac Type Severity Reaction Status Date / Time rosuvastatin [From CRESTOR] Allergy Unknown Unknown Verified 02/11/24 05:05 empagliflozin Allergy Unknown Verified 02/11/24 05:05 [From Jardiance] piperacillin [From Zosyn] AdvReac Intermediate Vomiting Verified 02/11/24 05:05 tazobactam [From Zosyn] AdvReac Intermediate Vomiting Verified 02/11/24 05:05 Review of Systems 2 Review of Systems: Constitutional : No Fever, No Chills ENT/Mouth : No Hoarseness, No sore throat, No Rhinorrhea Eyes: No Redness, No Discharge, No Vision Changes Cardiovascular : No Chest Pain, positive SOB, positive Dyspnea on Exertion, No Edema Respiratory : positive Cough, No Sputum, positive Wheezing, Gastrointestinal : No Nausea, No Vomiting, No Diarrhea, No abdominal Pain Genitourinary : No Dysuria, No Hematuria Musculoskeletal : pos joint pain, No Myalgias Skin : No rash Neuro : No Weakness, No Numbness, pos Headache Psych : No anxiety, depression Heme/Lymph: No Bruising, No Bleeding Endocrine : No Polyuria, No Polydipsia All other systems reviewed and are negative [facility] Past Medical History Attestation statement: The following information was validated with the patient. Source: old records reviewed Medical History Asthma Bacteremia Morbid (severe) obesity due to excess calories Asthma-COPD overlap syndrome Hypothyroidism Pulmonary embolism Depression Hyperlipidemia Rheumatoid arthritis Hypertension Diabetes mellitus, type 2 Social History Social History Household Members: Family Household Members Other:: sister and brother Housing: House Do you presently have visiting nurse or other home services: No Alcohol intake: never Patient Tobacco Use Status: Never used Tobacco Smoked in Last 30 Days: No Use of substances other than those prescribed or required for medical reasons: No Advance Directives: Yes Advance Directives on File: Yes Advance Directives Date on File: 06/07/23 service: No Current occupational status: disabled Physical Exam 2 Vital Signs: Vital Signs: Last Vital Signs Temp 96.1 F L 02/11/24 09:47 Pulse 135 H 02/11/24 10:28 Resp 16 02/11/24 10:28 BP 138/75 02/11/24 10:26 Pulse Ox 95 02/11/24 09:47 O2 Del Method Room Air 02/11/24 09:47 BMI result Body Mass Index 40.8 Appearance: Alert. Oriented X3. mod acute distress. Eyes: Pupils equal, round and reactive to light. ENT: Pharynx normal. no lacerations noted Neck: tachycardic inspection. Neck supple. CVS: Normal heart rate and rhythm. Pulses normal. Respiratory: Mild respiratory distress tachypnea. Breath sounds insp and exp wheezes diminished R base Abdomen: Soft and nontender. Skin: Skin cool and dry. pale skin color. Normal skin turgor. Extremities: No lower extremity edema. R knee ttp Neuro: Oriented X 3. No motor deficit. No sensory deficit. Course Course Course Narrative: 8am on arrival to room concern for infection - labs, cultures, given hypothermia, hypoglycemia stress dose steroids ordered, CT scan of head and neck, empiric ceftriaxone ordered infection suspected 829am Reevaluation(s) Reevaluation #1: now on rapid afib - hypothermia improved, still wheezy - lactic acid up slight fluids but also lasix and IV dilt for rapid afib no lopressor given COPD Medications Administered Discontinued Medications Generic Name Dose Route Start Last Admin Trade Name Elpidio PRN Reason Stop Dose Admin Acetaminophen 650 mg 02/11/24 07:23 02/11/24 09:40 Acetaminophen 325 Mg Tablet PO 02/11/24 07:24 650 mg ONCE ONE Administration Albuterol Sulfate 5 mg/ 0 mg 02/11/24 07:27 02/11/24 07:35 Albuterol/Ipratropium 3 ml INHALE 02/11/24 07:28 1 each ONCE ONE Administration Diltiazem HCl 10 mg 02/11/24 10:20 02/11/24 10:26 Diltiazem Hcl 50 Mg/10 Ml Vial IVPUSH 02/11/24 10:21 10 mg STAT STA Administration Furosemide 20 mg 02/11/24 09:32 02/11/24 09:40 Furosemide 20 Mg/2 Ml Vial IVPUSH 02/11/24 09:33 20 mg ONCE ONE Administration Protocol Hydrocortisone Sodium Succinate 100 mg 02/11/24 08:19 02/11/24 08:24 Hydrocortisone Sod Succ/Pf 100 Mg Vial IVPUSH 02/11/24 08:20 100 mg ONCE ONE Administration Ceftriaxone Sodium 1 gm/ 50 mls @ 100 mls/hr 02/11/24 07:23 02/11/24 09:53 Sodium Chloride IV 02/11/24 07:52 Infused ONCE ONE Infusion Sodium Chloride 500 mls @ 500 mls/hr 02/11/24 09:34 02/11/24 10:38 Ns IV 02/11/24 10:33 Infused .Q1H ONE Infusion Levalbuterol HCl 2.5 mg 02/11/24 10:22 02/11/24 10:26 Levalbuterol Hcl 1.25 Mg/3 Ml Vial.Neb INHALE 02/11/24 10:23 2.5 mg ONCE ONE Administration Medical Decision Making Medical Decision Making MDM Narrative: 73 yo female with PMH of 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 Labs, cultures, CXR - full VS check. I have ordered cultures, lactic acid, VBG. Empiric steroids, she feels cold to touch - rectal temperature reported. She could have been on the floor exposed. Likely admit. Differential Diagnosis Differential Diagnoses: The differential diagnosis associated with the presentation includes head injury, knee injury, COPD asthma, viral syndrome, syncope Admission/Observation Consideration of admission/observation: Escalation of care including admission/observation considered admit for further management given presentation Consult Healthcare Provider Management of the patient was discussed with: Hospitalist (will admit) Lab Data MDM Lab Attestation statement: I reviewed the patient's lab results. 02/11/24 05:59 02/11/24 07:05 Labs: Lab Results 02/11/24 02/11/24 02/11/24 Range/Units 05:00 05:58 05:59 WBC 8.3 (4.8-10.8) X10*3/uL RBC 4.66 D (4.20-5.50) X10*6/uL Hgb 14.0 D (12.0-16.0) g/dl Hct 42.8 D (37.0-47.0) % MCV 91.8 (80.0-98.0) fL MCH 30.0 (27.0-33.0) pg MCHC 32.7 (31.0-35.0) g/dl RDW 19.0 H (11.0-16.0) % Plt Count 148 L (160-400) X10*3/uL MPV 10.5 (9.4-12.3) fL Immature Gran % (Auto) 1.0 H (0.0-0.4) % Neut % (Auto) 59.8 (45-73) % Lymph % (Auto) 18.6 L (20-40) % [place] % (Auto) 18.0 H (2-11) % Eos % (Auto) 2.2 (0-4) % Baso % (Auto) 0.4 (0-2) % Lymph # (Auto) 1.5 (1.2-4.9) X10*3/uL [place] # (Auto) 1.5 H (0.1-1.2) X10*3/uL Eos # (Auto) 0.2 (0.0-0.4) X10*3/uL Baso # (Auto) 0.0 (0.0-0.2) X10*3/uL Abs Immat Gran (auto) 0.08 H (0.00-0.03) X10*3/uL Absolute Neuts (auto) 5.0 (2.0-8.3) x10*3/uL Absolute Nucleated RBC 0.000 (0.0-0.012) X10*3/uL Nucleated RBC % (auto) 0.0 (0.0-0.2) /100WBC VBG pH (7.32-7.43) VBG pCO2 mmHg VBG pO2 mmHg VBG HCO3 (22-26) mmol/L VBG O2 Saturation % VBG Base Excess mmol/L Sodium (135-145) mmol/L Potassium (3.3-5.1) mmol/L Chloride (96-108) mmol/L Carbon Dioxide (22-29) mmol/L Anion Gap (12-20) BUN (9-16) mg/dL Creatinine (0.5-1.4) mg/dL Estim Creat Clear Calc Estimated GFR POC Glucose 96 63 (60-115) mg/dL Random Glucose (60-115) mg/dL Lactic Acid (0.5-2.0) mmol/L Calcium (8.4-10.2) mg/dL Total Bilirubin (0.0-1.0) mg/dL AST (5-31) U/L ALT (0-31) U/L Alkaline Phosphatase (39-117) U/L Ammonia (13-55) umol/L Total Creatine Kinase (26-140) U/L Troponin I High Sens 29.0 H (<3.5-17.0) ng/L B-Natriuretic Peptide 313 H (<100) pg/mL Total Protein (6.5-8.0) g/dL Albumin (3.5-5.0) g/dL TSH (0.32-4.0) uIU/mL Urine Color Urine Appearance Urine pH (5.0-9.0) Ur Specific [place] (1.005-1.025) Urine Protein (Neg-Trace) mg/dL Urine Glucose (UA) (Negative) mg/dL Urine Ketones (Negative) mg/dL Urine Blood (Negative) Urine Nitrite (Negative) Ur Leukocyte Esterase (Negative) Urine RBC (0-2) /HPF Urine WBC (0-5) /HPF Ur Squamous Epith Cells (0-2) /HPF Urine Bacteria (None Seen) Hyaline Casts (0-2) /LPF 02/11/24 02/11/24 02/11/24 Range/Units 06:48 07:05 08:51 WBC (4.8-10.8) X10*3/uL RBC (4.20-5.50) X10*6/uL Hgb (12.0-16.0) g/dl Hct (37.0-47.0) % MCV (80.0-98.0) fL MCH (27.0-33.0) pg MCHC (31.0-35.0) g/dl RDW (11.0-16.0) % Plt Count (160-400) X10*3/uL MPV (9.4-12.3) fL Immature Gran % (Auto) (0.0-0.4) % Neut % (Auto) (45-73) % Lymph % (Auto) (20-40) % [place] % (Auto) (2-11) % Eos % (Auto) (0-4) % Baso % (Auto) (0-2) % Lymph # (Auto) (1.2-4.9) X10*3/uL [place] # (Auto) (0.1-1.2) X10*3/uL Eos # (Auto) (0.0-0.4) X10*3/uL Baso # (Auto) (0.0-0.2) X10*3/uL Abs Immat Gran (auto) (0.00-0.03) X10*3/uL Absolute Neuts (auto) (2.0-8.3) x10*3/uL Absolute Nucleated RBC (0.0-0.012) X10*3/uL Nucleated RBC % (auto) (0.0-0.2) /100WBC VBG pH (7.32-7.43) VBG pCO2 mmHg VBG pO2 mmHg VBG HCO3 (22-26) mmol/L VBG O2 Saturation % VBG Base Excess mmol/L Sodium 140 (135-145) mmol/L Potassium 3.9 D (3.3-5.1) mmol/L Chloride 101 (96-108) mmol/L Carbon Dioxide 30 H (22-29) mmol/L Anion Gap 13 (12-20) BUN 25 H (9-16) mg/dL Creatinine 1.13 (0.5-1.4) mg/dL Estim Creat Clear Calc 53.7 Estimated GFR 47 POC Glucose 82 98 (60-115) mg/dL Random Glucose 96 (60-115) mg/dL Lactic Acid (0.5-2.0) mmol/L Calcium 9.8 D (8.4-10.2) mg/dL Total Bilirubin 1.0 (0.0-1.0) mg/dL AST 113 H (5-31) U/L ALT 59 H (0-31) U/L Alkaline Phosphatase 138 H (39-117) U/L Ammonia (13-55) umol/L Total Creatine Kinase (26-140) U/L Troponin I High Sens (<3.5-17.0) ng/L B-Natriuretic Peptide (<100) pg/mL Total Protein 8.4 H (6.5-8.0) g/dL Albumin 3.1 L (3.5-5.0) g/dL TSH 1.38 (0.32-4.0) uIU/mL Urine Color Urine Appearance Urine pH (5.0-9.0) Ur Specific [place] (1.005-1.025) Urine Protein (Neg-Trace) mg/dL Urine Glucose (UA) (Negative) mg/dL Urine Ketones (Negative) mg/dL Urine Blood (Negative) Urine Nitrite (Negative) Ur Leukocyte Esterase (Negative) Urine RBC (0-2) /HPF Urine WBC (0-5) /HPF Ur Squamous Epith Cells (0-2) /HPF Urine Bacteria (None Seen) Hyaline Casts (0-2) /LPF 02/11/24 02/11/24 02/11/24 Range/Units 09:11 09:17 09:29 WBC (4.8-10.8) X10*3/uL RBC (4.20-5.50) X10*6/uL Hgb (12.0-16.0) g/dl Hct (37.0-47.0) % MCV (80.0-98.0) fL MCH (27.0-33.0) pg MCHC (31.0-35.0) g/dl RDW (11.0-16.0) % Plt Count (160-400) X10*3/uL MPV (9.4-12.3) fL Immature Gran % (Auto) (0.0-0.4) % Neut % (Auto) (45-73) % Lymph % (Auto) (20-40) % [place] % (Auto) (2-11) % Eos % (Auto) (0-4) % Baso % (Auto) (0-2) % Lymph # (Auto) (1.2-4.9) X10*3/uL [place] # (Auto) (0.1-1.2) X10*3/uL Eos # (Auto) (0.0-0.4) X10*3/uL Baso # (Auto) (0.0-0.2) X10*3/uL Abs Immat Gran (auto) (0.00-0.03) X10*3/uL Absolute Neuts (auto) (2.0-8.3) x10*3/uL Absolute Nucleated RBC (0.0-0.012) X10*3/uL Nucleated RBC % (auto) (0.0-0.2) /100WBC VBG pH 7.35 (7.32-7.43) VBG pCO2 54 mmHg VBG pO2 37 mmHg VBG HCO3 30 H (22-26) mmol/L VBG O2 Saturation 53.0 % VBG Base Excess 3.4 mmol/L Sodium (135-145) mmol/L Potassium (3.3-5.1) mmol/L Chloride (96-108) mmol/L Carbon Dioxide (22-29) mmol/L Anion Gap (12-20) BUN (9-16) mg/dL Creatinine (0.5-1.4) mg/dL Estim Creat Clear Calc Estimated GFR POC Glucose (60-115) mg/dL Random Glucose (60-115) mg/dL Lactic Acid 2.6 H* (0.5-2.0) mmol/L Calcium (8.4-10.2) mg/dL Total Bilirubin (0.0-1.0) mg/dL AST (5-31) U/L ALT (0-31) U/L Alkaline Phosphatase (39-117) U/L Ammonia 26 (13-55) umol/L Total Creatine Kinase 85 (26-140) U/L Troponin I High Sens 31.1 H (<3.5-17.0) ng/L B-Natriuretic Peptide (<100) pg/mL Total Protein (6.5-8.0) g/dL Albumin (3.5-5.0) g/dL TSH (0.32-4.0) uIU/mL Urine Color Yellow Urine Appearance Clear Urine pH 6.0 (5.0-9.0) Ur Specific [place] 1.015 (1.005-1.025) Urine Protein 300 (3+) H (Neg-Trace) mg/dL Urine Glucose (UA) Negative (Negative) mg/dL Urine Ketones Negative (Negative) mg/dL Urine Blood Trace H (Negative) Urine Nitrite Negative (Negative) Ur Leukocyte Esterase Negative (Negative) Urine RBC 3-5 H (0-2) /HPF Urine WBC 0-5 (0-5) /HPF Ur Squamous Epith Cells 0-2 (0-2) /HPF Urine Bacteria None Seen (None Seen) Hyaline Casts 0-2 (0-2) /LPF Independent Interpretation I performed an independent interpretation of an: EKG, Plain X-Ray (some improvement in opacities) and CT Scan (no trauma) Interpretation: Rate: 90 Rhythm: afib [place]: left Normal QRS complex. ST T wave : no PAVITHRA, nonspecific S T wave changes inf leads qTC: 469 prior studies: no sig change from priors The study has been interpreted contemporaneously by me. . Radiology Impression Discussion of test interpretation with radiology: I have reviewed the radiologist's reading. Independent Historian Clinical information obtained from an independent historian. History obtained from or confirmed by: EMS External Record Review External record reviewed: Inpatient record Critical Care Time Critical Care Time Critical Care Time: Yes Total Critical Care Time: 75 Attestation: repeat nebs, afib with rvr IV dilt, IV lasix, hypothermia, review of records, repeat labs, admission I attest to this time spent taking care of the patient Discharge Plan Discharge Clinical Impression: Syncope, Hypoglycemia, Head injury, Hypothermia, COPD with acute exacerbation, Atrial fibrillation with rapid ventricular response Patient Disposition: Admitted As Inpatient Print Language: Macedonian
[2024-02-11 07:22] LABS: Anion Gap 13 (12-20)
[2024-02-11 07:26] LABS: Alanine Aminotransferase 59 U/L (0-31); Albumin Level 3.1 g/dL (3.5-5.0); Alkaline Phosphatase 138 U/L (39-117); Aspartate Amino Transferase 113 U/L (5-31); Blood Urea Nitrogen 25 mg/dL (9-16); Calcium 9.8 mg/dL (8.4-10.2); Carbon Dioxide 30 mmol/L (22-29); Chloride 101 mmol/L (96-108); Creatinine Clr Calc Pharmacy 53.7; Estimated Glomerular Filt Rate 47; Glucose Random 96 mg/dL (60-115); Potassium 3.9 mmol/L (3.3-5.1); Sodium 140 mmol/L (135-145); Total Protein 8.4 g/dL (6.5-8.0)
[2024-02-11] MEDS: Albuterol Sulfate 5 MG, Albuterol/Iprat 2.5/0.5MG 3 ML 3 ML INHALE (07:35)
--- NOTE | 2024-02-11 08:17 | PC.NURSE ---
pt a difficult Callie fatima Rn attempting U/S guided IV
[2024-02-11] MEDS: Hydrocortisone Sod Succ/PF 100 MG VIAL IVPUSH (08:24)
[2024-02-11 08:54] LABS: Glucose, Whole Blood 98 mg/dL (60-115)
--- NOTE | 2024-02-11 08:56 | PC.NURSE ---
pt remains difficult IV stick even with U/S guidance, phlebotomy unable to assist at this time with blood draws
[2024-02-11 08:57] LABS: B Type Natriuretic Peptide 313 pg/mL (<100)
[2024-02-11 09:08] LABS: TSH reflex Free T4 1.38 uIU/mL (0.32-4.0)
[2024-02-11 09:24] LABS: VBG Base Excess 3.4 mmol/L; VBG HCO3 30 mmol/L (22-26); VBG pCO2 54 mmHg; VBG pH 7.35 (7.32-7.43); VBG pO2 37 mmHg
[2024-02-11 09:26] LABS: Ammonia 26 umol/L (13-55)
[2024-02-11] MEDS: cefTRIAXone sodium 1 GM in 0.9 % Sodium Chloride 50 ML IV (09:26)
[2024-02-11 09:30] LABS: Venous Blood Gas Refer to POC result
[2024-02-11 09:34] LABS: Lactic Acid 2.6 mmol/L (0.5-2.0)
[2024-02-11 09:40] LABS: Appearance Urine Clear; Color Urine Yellow; Glucose Urine UA Negative (Negative); Leukocyte Esterase Urine Negative (Negative); Nitrite Urine Negative (Negative); Specific Gravity - Urine 1.015 (1.005-1.025); UMIC TRIGGER UACC YES; Urine Blood Trace (Negative); Urine Ketones Negative (Negative); Urine Protein 300 (3+) mg/dL (Neg-Trace)
[2024-02-11] MEDS: Furosemide 20 MG/2 ML VIAL IVPUSH (09:40)
[2024-02-11] MEDS: 0.9 % Sodium Chloride 500 ML IV (09:40)
[2024-02-11] MEDS: Acetaminophen 325 MG TABLET 650 MG PO (09:40)
[2024-02-11 09:43] LABS: Troponin-I High Sensitivity 31.1 ng/L (<3.5-17.0)
[2024-02-11 09:45] LABS: Bacteria Urine None Seen (None Seen); Hyaline Casts Urine 0-2 /LPF (0-2); Squamous Epithelial Cell Urine 0-2 /HPF (0-2); WBC Urine 0-5 /HPF (0-5)
[2024-02-11] MEDS: dilTIAZem HCL 50 MG/10 ML VIAL 10 MG IVPUSH ×2 (10:26→14:59)
[2024-02-11] MEDS: levalbuterol HCL 1.25 MG/3 ML VIAL.NEB 2.5 MG INHALE (10:26)
--- NOTE | 2024-02-11 10:39 | PC.NURSE ---
verbal order per MD Mcgrath - only given 250 cc of 500 cc bolus
--- NOTE | 2024-02-11 11:14 | P.HPHOSP_ITS ---
History of Present Illness Date of Service: 02/11/24 Attending physician on admission: Mae Perez Chief Complaint: Syncope, fall at home Pt is a 73-year-old female with a PMH significant for?asthma/COPD overlap syndrome not on home O2, hx of PE on Eliquis, insulin-dependent type 2 diabetes, hypothyroidism, GERD, GRIMES, and mood disorder who presents to the ED after fall at home. Patient was recently admitted to the hospital from 02/06-02/07 and treated for moderate persistent asthma/COPD with acute decompensation. Was discharged home on 5-day taper of prednisone. After discharge patient reports still not feeling all that well, especially noted continue to have nonproductive cough and increased SOB above baseline. Reports using her inhalers with little relief. Early this morning patient reports waking up and going to the bathroom but does not remember anything else until waking up in the hospital. Patient lives with family who found her on the bathroom floor with an unknown length of downtime. EMS found patient's blood sugar of 46; was given D10 250 mL and DuoNeb for audible wheezing. In the ED patient was found to be in new onset AFib with RVR. Currently, pt complains persistent non productive cough, increased SOB, generalized weakness, and right knee pain. Denies any chest pain/pressure, or palpitations. No fever, chills, N/V/D, or abdominal pain. Denies lightheadedness dizziness. Patient denies previous history of atrial fibrillation. Reports she has been eating and drinking normally at home. In the ED pt was hypothermic as low as 93.4, tachycardic up to 138, tachypneic up to 24, and mostly normotensive. Labs were significant for lactic acid 2.6, AST 113, ALT 59, alk-phos 138, initial troponin 29.0 with repeat 31.1, and BNP 313. UA negative for UTI. CXR showed improved left basilar aeration compared to prior though with slight residual opacity, and small left pleural effusion. CT of right knee found no acute findings. CT of head and cervical spine negative for acute intracranial findings or acute fracture or dislocation. EKG demonstrated atrial fibrillation without significant ST elevations or depressions. Pt was treated with DuoNebs, hydrocortisone, ceftriaxone, acetaminophen, furosemide, IVF, and diltiazem 10 mg IV. Pt will be admitted to the hospital for treatment further evaluation of new onset AFib with RVR. Review of Systems 2 Review of Systems: Fall at home with LOC SOB, wheezing Nonproductive cough No chest pain/pressure, palpitations Denies fever, chills, nausea, vomiting, abdominal pain PMFSH Medical History Asthma Bacteremia Morbid (severe) obesity due to excess calories Asthma-COPD overlap syndrome Hypothyroidism Pulmonary embolism Depression Hyperlipidemia Rheumatoid arthritis Hypertension Diabetes mellitus, type 2 Social History Household Members: Family Household Members Other:: sister and brother Housing: House Do you presently have visiting nurse or other home services: No (Meals on Wheels) Alcohol intake: never Patient Tobacco Use Status: Never used Tobacco Smoked in Last 30 Days: No Use of substances other than those prescribed or required for medical reasons: No Currently Displaying Signs/Symptoms of Drug Intoxication Withdrawal: No Have you been hit, kicked, punched, or otherwise hurt by someone within the past year? If so, by whom?: No Do you feel safe in your current relationship?: No Current Relationship Is there a partner from a previous relationship who is making you feel unsafe now?: No Are you made to feel afraid or neglected: No Advance Directives: Yes Advance Directives on File: Yes Advance Directives Date on File: 06/07/23 Do you have a plan to hurt others: No Plan Recently lost weight without trying: No Nutrition Risks: No Nutritional Risk Patient : No : No Poor oral hygiene: No service: No Current occupational status: disabled Meds Allergies Allergy/AdvReac Type Severity Reaction Status Date / Time rosuvastatin [From CRESTOR] Allergy Unknown Unknown Verified 02/11/24 05:05 empagliflozin Allergy Unknown Verified 02/11/24 05:05 [From Jardiance] piperacillin [From Zosyn] AdvReac Intermediate Vomiting Verified 02/11/24 05:05 tazobactam [From Zosyn] AdvReac Intermediate Vomiting Verified 02/11/24 05:05 Home Medications ?Medication ?Instructions ?Recorded ?Confirmed ?Last Taken ?Type albuterol sulfate 90 mcg/actuation 2 puff inhalation Q4H PRN 01/20/23 02/11/24 01/19/23 History aerosol inhaler Shortness Of Breath Or Wheezing apixaban 5 mg tablet (Eliquis) 5 mg PO BID 01/20/23 02/11/24 11/22/23 History calcium carbonate 600 mg-vitamin 1 tab PO DAILY 01/20/23 02/11/24 11/22/23 History D3 5 mcg (200 unit) tablet citalopram 20 mg tablet 20 mg PO DAILY 01/20/23 02/11/24 11/22/23 History ferrous sulfate 325 mg (65 mg 325 mg PO DAILY 01/20/23 02/11/24 11/22/23 History iron) tablet levothyroxine 50 mcg tablet 50 mcg PO DAILY@0600 01/20/23 02/11/24 11/22/23 History montelukast 10 mg tablet 10 mg PO BEDTIME 01/20/23 02/11/24 11/21/23 History furosemide 20 mg tablet 20 mg PO DAILY 06/01/23 02/11/24 11/22/23 History insulin glargine 100 unit/mL (3 50 unit subcut BID 06/01/23 02/11/24 11/22/23 History mL) subcutaneous pen (Basaglar KwikPen U-100 Insulin) docusate sodium 100 mg capsule 100 mg PO BID PRN Constipation 07/20/23 02/11/24 11/22/23 History folic acid 1 mg tablet 1 mg PO DAILY 07/20/23 02/11/24 11/22/23 History adalimumab 40 mg/0.8 mL 40 mg subcut Q14D 11/22/23 02/11/24 01/26/24 History subcutaneous syringe kit (Humira) fluticasone 500 mcg-salmeterol 50 1 ea inhalation BID 11/22/23 02/11/24 11/22/23 History mcg/dose blistr powdr for inhalation (Wixela Inhub) insulin regular human 100 unit/mL 40 unit subcut TID 02/07/24 02/11/24 Unknown History (3 mL) subcutaneous pen (Novolin R FlexPen) lactulose 10 gram/15 mL oral 10 ml PO BID 02/07/24 02/11/24 Unknown History solution (Enulose) simvastatin 20 mg tablet 20 mg PO BEDTIME 02/07/24 02/11/24 Unknown History spironolactone 100 mg tablet 100 mg PO DAILY 02/07/24 02/11/24 Unknown History Physical Exam 2 Vital Signs and Narrative: Vital Signs: Last Vital Signs Temp 97.2 F 02/11/24 11:05 Pulse 122 H 02/11/24 11:05 Resp 20 02/11/24 11:05 BP 104/54 L 02/11/24 11:05 Pulse Ox 93 02/11/24 11:05 O2 Del Method Room Air 02/11/24 11:05 BMI result Body Mass Index 40.8 Constitutional: Alert, in no acute distress. Mental Status: Oriented to person, place and time. Eyes: Pupils are equal, round, and reactive to light. Ear, Nose, and Throat: Oropharynx clear, mucous membranes moist. Ears and nose without deformities. Trachea midline. Respiratory: Audibly wheezing. Significant diffuse inspiratory and expiratory wheezing bilaterally. Cardiovascular: Irregularly irregular rhythm, tachycardic. Gastrointestinal: Abdomen soft, non-tender, non-distended, obese. Normal bowel sounds. Neurologic: Cranial nerves II-XII are grossly intact bilaterally. No focal neurological deficits. Moves all extremities spontaneously. Skin: Warm, dry. Extremities: 1+ bilateral pitting edema. Psychiatric: Normal mood and affect. Results Labs 02/11/24 05:59 02/12/24 06:43 Labs: Laboratory Results - last 24 hr 02/11/24 02/11/24 02/11/24 05:00 05:58 05:59 MCV 91.8 MCH 30.0 MCHC 32.7 RDW 19.0 H Plt Count 148 L MPV 10.5 Immature Gran % (Auto) 1.0 H Neut % (Auto) 59.8 Lymph % (Auto) 18.6 L [place] % (Auto) 18.0 H Eos % (Auto) 2.2 Baso % (Auto) 0.4 Lymph # (Auto) 1.5 [place] # (Auto) 1.5 H Eos # (Auto) 0.2 Baso # (Auto) 0.0 Abs Immat Gran (auto) 0.08 H Absolute Neuts (auto) 5.0 Absolute Nucleated RBC 0.000 Nucleated RBC % (auto) 0.0 VBG pH VBG pCO2 VBG pO2 VBG HCO3 VBG O2 Saturation VBG Base Excess Anion Gap Estim Creat Clear Calc Estimated GFR POC Glucose 96 63 Random Glucose Lactic Acid Calcium Total Bilirubin AST ALT Alkaline Phosphatase Ammonia Total Creatine Kinase Troponin I High Sens 29.0 H B-Natriuretic Peptide 313 H Total Protein Albumin TSH Urine Color Urine Appearance Urine pH Ur Specific Dorothy Urine Protein Urine Glucose (UA) Urine Ketones Urine Blood Urine Nitrite Ur Leukocyte Esterase Urine RBC Urine WBC Ur Squamous Epith Cells Urine Bacteria Hyaline Casts 02/11/24 02/11/24 02/11/24 06:48 07:05 08:51 MCV MCH MCHC RDW Plt Count MPV Immature Gran % (Auto) Neut % (Auto) Lymph % (Auto) [place] % (Auto) Eos % (Auto) Baso % (Auto) Lymph # (Auto) [place] # (Auto) Eos # (Auto) Baso # (Auto) Abs Immat Gran (auto) Absolute Neuts (auto) Absolute Nucleated RBC Nucleated RBC % (auto) VBG pH VBG pCO2 VBG pO2 VBG HCO3 VBG O2 Saturation VBG Base Excess Anion Gap 13 Estim Creat Clear Calc 53.7 Estimated GFR 47 POC Glucose 82 98 Random Glucose 96 Lactic Acid Calcium 9.8 D Total Bilirubin 1.0 AST 113 H ALT 59 H Alkaline Phosphatase 138 H Ammonia Total Creatine Kinase Troponin I High Sens B-Natriuretic Peptide Total Protein 8.4 H Albumin 3.1 L TSH 1.38 Urine Color Urine Appearance Urine pH Ur Specific Dorothy Urine Protein Urine Glucose (UA) Urine Ketones Urine Blood Urine Nitrite Ur Leukocyte Esterase Urine RBC Urine WBC Ur Squamous Epith Cells Urine Bacteria Hyaline Casts 02/11/24 02/11/24 02/11/24 09:11 09:17 09:29 MCV MCH MCHC RDW Plt Count MPV Immature Gran % (Auto) Neut % (Auto) Lymph % (Auto) [place] % (Auto) Eos % (Auto) Baso % (Auto) Lymph # (Auto) [place] # (Auto) Eos # (Auto) Baso # (Auto) Abs Immat Gran (auto) Absolute Neuts (auto) Absolute Nucleated RBC Nucleated RBC % (auto) VBG pH 7.35 VBG pCO2 54 VBG pO2 37 VBG HCO3 30 H VBG O2 Saturation 53.0 VBG Base Excess 3.4 Anion Gap Estim Creat Clear Calc Estimated GFR POC Glucose Random Glucose Lactic Acid 2.6 H* Calcium Total Bilirubin AST ALT Alkaline Phosphatase Ammonia 26 Total Creatine Kinase 85 Troponin I High Sens 31.1 H B-Natriuretic Peptide Total Protein Albumin TSH Urine Color Yellow Urine Appearance Clear Urine pH 6.0 Ur Specific Dorothy 1.015 Urine Protein 300 (3+) H Urine Glucose (UA) Negative Urine Ketones Negative Urine Blood Trace H Urine Nitrite Negative Ur Leukocyte Esterase Negative Urine RBC 3-5 H Urine WBC 0-5 Ur Squamous Epith Cells 0-2 Urine Bacteria None Seen Hyaline Casts 0-2 Imaging Radiologist's Impressions: Impressions Chest X-Ray 02/11/24 05:24 IMPRESSION: Improved left basilar aeration compared to prior, though slight residual opacity is difficult to exclude along with small left pleural effusion. Knee X-Ray 02/11/24 05:24 IMPRESSION: No acute findings identified. Total knee arthroplasty hardware in anatomic alignment. Cervical Spine CT 02/11/24 08:41 IMPRESSION: No fracture or dislocation. Mild degenerative changes. Fleischner guidelines were followed. Head CT 02/11/24 08:41 IMPRESSION: No acute cranial findings. Generalized atrophy and nonspecific periventricular white matter disease. Sinusitis. Assessment and Plan (1) Atrial fibrillation with rapid ventricular response: Status: Acute Plan Pt is a 73-year-old female with a PMH significant for?asthma/COPD overlap syndrome not on home O2, hx of PE on Eliquis, insulin-dependent type 2 diabetes, hypothyroidism, GERD, GRIMES, and mood disorder who presents to the ED after fall at home. Pt will be admitted to the hospital for treatment and further evaluation of new onset AFib with RVR and acute COPD/asthma overlap syndrome exacerbation. New onset AFib with RVR Heart rate has been elevated as high as the 160s in the ED Patient with syncopal episode at home; currently denies chest pain/pressure or palpitations; no lightheadedness or dizziness Patient given diltiazem 10 mg IV in the ED Will place on diltiazem drip Patient already on Eliquis for DVT/PE Echocardiogram Cardiology consult Monitor on telemetry Acute COPD/asthma overlap exacerbation Patient with increased SOB, audibly wheezing despite multiple breathing treatments Will treat with DuoNebs, Solu-Medrol cetirizine, benzonatate Patient not hypoxic, not supplemental O2 Monitor respiratory status Hypopthermia, resolved Temperature as low as 93.4 degrees in the ED Patient given stress dose of hydrocortisone and placed in Kassy Hugger in the ED, now normothermic at 97.2 Likely secondary to fall at home Hypoglycemia, resolved Pt's blood glucose found to be in the 40s by EMS Currently 98 Monitor POC Fall at home Likely multifactorial: secondary to AFib with RVR, hypoglycemia, COPD/asthma exacerbation Imaging of head, C-spine, right knee negative Treat as above PT evaluation Lactic acidosis Lactic acid 2.6 repeat 2.4 after fluids Likely secondary to hypothyroid and fall at home with unknown downtime, not sepsis Patient does not meet sepsis criteria: Tachycardia secondary to AFib with RVR, hypothermia secondary to fall at home with unknown downtime Patient received empiric antibiotics in ED Currently no indication to continue antibiotics at this time; CXR negative for clear indication pneumonia; patient not complaining of productive cough Will check procalcitonin Elevated BNP Patient does not carry a diagnosis of CHF Has chronic lower leg edema and occasional ascites secondary to GRIMES Continue home Lasix Check echocardiogram Monitor fluid status Hx of DVT/PE Continue Eliquis HLD Continue statin Hypothyroidism Continue levothyroxine GRIMES Continue home furosemide, lactulose Insulin-dependent diabetes type 2 Will hold on Lantus for now Place on sliding scale insulin Mood disorder Continue mood stabilizers Full Code Attending:?Dr. Perez DVT Prophylaxis: On Eliquis Pt will require a hospitalization of at least two nights for treatment of?new onset AFib with RVR and acute COPD/asthma overlap syndrome exacerbation. Patient will require hospitalization as she has on a diltiazem drip, and need close monitoring cardiac function, specialist consultation with Cardiology, as well as administration of IV steroids, breathing treatments and evaluation by PT. Quality Stroke Does the patient have a stroke diagnosis?: No VTE Prior VTE?: No VTE Risk Level:: Medical - moderate - high VTE Device Contraindication: Treatment Not Indicated VTE Drug Contraindication: N/A - Med Ordered
[2024-02-11 11:17] LABS: Reflex Lactate? Lactic Acid Added
--- NOTE | 2024-02-11 11:21 | PHA.MEDREC ---
Pharmacy Consult ? Medication Reconciliation Pharmacy has completed the medication reconciliation. Used discharge packet from 02/08/24
[2024-02-11 12:05] LABS: ~Lactic Acid-LAB USE ONLY 2.4 mmol/L (0.5-2.0)
[2024-02-11 12:09] LABS: Cancel Lactic Acid Canceled
[2024-02-11] MEDS: dilTIAZem HCL 125 MG in 0.9 % Sodium Chloride 100 ML 10 MG IVCONT (15:06)
[2024-02-11] MEDS: levalbuterol HCL 1.25 MG/3 ML VIAL.NEB INHALE ×3 (15:07→23:37)
[2024-02-11 15:13] LABS: Procalcitonin 0.08 ng/mL
[2024-02-11 15:26] LABS: Glucose, Whole Blood 268 mg/dL (60-115)
[2024-02-11 16:48] LABS: Glucose, Whole Blood 322 mg/dL (60-115)
--- NOTE | 2024-02-11 17:00 | CA_ITS ---
Transthoracic Echocardiogram Patient (Last, First, Middle): Jennifer Duran J Gender: Female Date of : 1950 Age: 73 Procedure Date: 02/11/2024 Procedure Type: Transthoracic Echocardiogram Location: [facility] [place] Height: 162.56 cm Weight: 107.5 kg BSA: 2.10 m2 Heart Rate: bpm BP: 104 / 54 mmHg Delivery Consultant: Referring MD: Riaz HERNANDEZ Symptoms: New onset AFib w/ RVR Study Quality: Adequate ECG Rhythm: Atrial Fibrillation with rapid rate Conclusions: - The left ventricular systolic function is normal. The visually estimated ejection fraction is between 65-70%. - There is moderate calcification of the aortic valve. There is mild aortic valve stenosis. - There is moderate mitral annular calcification. Findings Left Ventricle Normal left ventricular cavity size. There is mildly increased left ventricular wall thickness. The left ventricular systolic function is normal. The visually estimated ejection fraction is between 65-70%. There is no evidence of regional wall motion abnormalities. Diastolic function is indeterminate on the basis of available data. Right Ventricle Normal right ventricular cavity size and systolic function. Atria The left atrium is moderately dilated. The right atrium was not well visualized. Aortic Valve The aortic valve was not well visualized. There is moderate calcification of the aortic valve. There is mild aortic valve stenosis. There is no aortic valve regurgitation. Mitral Valve There is moderate mitral annular calcification. There is no mitral valve regurgitation. Unable to assess for mitral stenosis. Pulmonic Valve The pulmonic valve is likely normal. Tricuspid Valve There is trace tricuspid valve regurgitation. There is no evidence of pulmonary hypertension. Great Vessels The asc aorta is normal in size. Venous The inferior vena cava is normal in size and collapses greater than 50% with inspiration. Pericardium/Pleural There is no evidence of pericardial effusion. Prior Study Comparison No significant change compared to prior study dated: 06/02/2023. Measurements 2D Linear Measurements IVSd: 1.25 0.6-0.9/0.6-1.0 cm LVIDd: 4.20 3.9-5.3/4.2-5.9 cm LVIDd Index: 2.00 2.4-3.2/2.2-3.1 cm/m2 LVIDs: 2.38 2.0-3.6 cm LVPWd: 1.21 0.7-1.1 cm Ao Root: 2.60 2.1-3.5 cm LA Diam: 4.50 2.7-3.8/3.0-4.0 cm LAIDs Index: 2.14 1.5-2.3 cm/m2 LV Mass: 230.17 67-162/88-224 g LV Mass Index: 109.61 43-95/49-115 g/m2 LVOT Diam: 1.90 3.0+(-)1.3 cm 2D Systolic Function EF 4C: 56.00 >55% EF 2C: 56.60 >55% EF BiP: 57.90 >55% Mitral Valve MV VTI: 0.31 MV Pk Cristóbal: 1.77 MV Mn Cristóbal: 1.02 MV Pk Grad: 13.00 MV Mn Grad: 6.00 MV Pk E: 0.06 MV Decel Time: 111.00 E'Lateral: 9.57 E'Medial: 50.60 E/E' Med: 0.10 E/E' Lat: 0.60 PHT: 33.00 MVA PHT: 6.67 MVA Continuity: 2.38 Decel Weston: 12.44 Aortic Valve AoV Pk Cristóbal: 2.31 AoV Mn Cristóbal: 1.58 AoV VTI: 0.40 AoV Pk Grad: 21.00 Aov Mn Grad: 12.00 SHEREEN Cont.VTI: 1.84 LVOT LVOT Pk Cristóbal: 1.38 LVOT Mn Cristóbal: 0.96 LVOT VTI: 0.26 LVOT Pk Grad: 8.00 LVOT Mn Grad: 4.00 LVOT Diam: 1.90 LVOT Area: 2.84 Diastolic Function MV Pk E: 0.06 E'Medial: 50.60 E/E' Med: 0.10 E' Laterial: 9.57 E/E' Lat: 0.60 Right Ventricle TAPSE (mm): 24.00 Tricuspid Valve TR Pk Cristóbal: 2.19 TR Pk Grad: 19.00 RA Press: 3.00 RVSP: 22.00 Great Vessels Aorta Ao Root-2D: 2.60 2.0-3.7 cm Ao Asc: 3.00 2.1-3.4 cm Pulmonary Valve PV Pk Cristóbal: 1.53 Peak PV Grad: 9.00 Updated in Other Vendor System with Status of Final Lázaro Dominguez MD electronically signed on 02/12/2024 1:36:47 PM with status of Final
[2024-02-11 17:27] LABS: Magnesium 1.9 mg/dL (1.6-2.6)
[2024-02-11] MEDS: Insulin Lispro 100 UNIT/ML 3 ML VIAL SUBCUT ×2 (17:32→21:44)
[2024-02-11 21:11] LABS: Glucose, Whole Blood 416 mg/dL (60-115)
[2024-02-11] MEDS: Lactulose 20 GM/30 ML SOLUTION 6.7 GM PO (21:40)
[2024-02-11] MEDS: Insulin Glargine,Hum.rec.anlog 100 UNIT/ML 10 ML VIAL 35 UNIT SUBCUT (21:45)
[2024-02-11] MEDS: Apixaban 5 MG TABLET PO (21:46)
[2024-02-11] MEDS: Atorvastatin Calcium 10 MG TABLET PO (21:46)
[2024-02-11] MEDS: Montelukast Sodium 10 MG TABLET PO (21:46)
[2024-02-11 23:43] LABS: Glucose, Whole Blood 437 mg/dL (60-115)
[2024-02-12] VITALS (15 sets, daily range): BP systolic 117–160; BP diastolic 57–80; PULSE 66–104; RESP 16–22; TEMP 36–36.8; O2SAT 92–100
[2024-02-12] MEDS: Insulin Regular, Human 100 UNIT/ML 3 ML VIAL 8 UNIT IVPUSH (00:15)
[2024-02-12] MEDS: 0.9 % Sodium Chloride 500 ML IV (00:16)
[2024-02-12] MEDS: 0.9 % Sodium Chloride Flush 3 ML SYRINGE IVFLUSH ×3 (00:18→21:41)
[2024-02-12] MEDS: dilTIAZem HCL 125 MG in 0.9 % Sodium Chloride 100 ML 15 MG IVCONT ×2 (00:35→07:56)
[2024-02-12 01:06] LABS: Anion Gap 18 (12-20); Blood Urea Nitrogen 38 mg/dL (9-16); Calcium 8.3 mg/dL (8.4-10.2); Carbon Dioxide 20 mmol/L (22-29); Chloride 101 mmol/L (96-108); Creatinine Clr Calc Pharmacy 34.7; Estimated Glomerular Filt Rate 29; Glucose Random 463 mg/dL (60-115); Potassium 5.4 mmol/L (3.3-5.1); Sodium 134 mmol/L (135-145)
[2024-02-12 01:32] LABS: Glucose, Whole Blood 387 mg/dL (60-115)
[2024-02-12] MEDS: Insulin Lispro 100 UNIT/ML 3 ML VIAL 8 UNIT SUBCUT ×5 (02:06→21:42)
[2024-02-12] MEDS: levalbuterol HCL 1.25 MG/3 ML VIAL.NEB INHALE ×6 (02:52→23:24)
[2024-02-12 04:23] LABS: Glucose, Whole Blood 295 mg/dL (60-115)
[2024-02-12] MEDS: Levothyroxine Sodium 50 MCG TABLET PO (05:45)
[2024-02-12 07:30] LABS: Glucose, Whole Blood 252 mg/dL (60-115)
[2024-02-12] MEDS: Fluticasone/Vilanterol 200/25 BLST.W.DEV 1 PUFF INHALE (07:36)
[2024-02-12 07:42] LABS: Anion Gap 13 (12-20); Blood Urea Nitrogen 39 mg/dL (9-16); Calcium 8.5 mg/dL (8.4-10.2); Carbon Dioxide 25 mmol/L (22-29); Chloride 102 mmol/L (96-108); Creatinine Clr Calc Pharmacy 44.8; Estimated Glomerular Filt Rate 39; Glucose Random 274 mg/dL (60-115); Sodium 136 mmol/L (135-145)
[2024-02-12] MEDS: Lactulose 20 GM/30 ML SOLUTION 6.7 GM PO ×2 (07:56→21:41)
[2024-02-12] MEDS: Insulin Lispro 100 UNIT/ML 3 ML VIAL SUBCUT ×4 (07:58→21:41)
[2024-02-12] MEDS: Insulin Glargine,Hum.rec.anlog 100 UNIT/ML 10 ML VIAL 35 UNIT SUBCUT (07:58)
[2024-02-12] MEDS: Apixaban 5 MG TABLET PO ×2 (07:59→21:40)
[2024-02-12] MEDS: Ferrous Sulfate 324 MG TABLET.DR PO (07:59)
[2024-02-12] MEDS: Folic Acid 1 MG TABLET PO (07:59)
--- NOTE | 2024-02-12 10:07 | PM.CNCAR ---
History of Present Illness History of Present Illness Date of Service: 02/12/24 Chief complaint: New onset AFIB w/ RVR Narrative: This is a cardiology consultation regarding atrial fibrillation rapid rate. Patient with many comorbidities. Reviewed H and P and discussed with patient. It seems she has a history of asthma/COPD, history of pulmonary embolism on Eliquis, type 2 diabetes, mood disorder among others. It seems that she came because of fall. Recent admission for respiratory issues. At that time, it seems she was put on prednisone. Per documentation, still not feeling well and continues to have cough as well as increasing shortness of breath. Apparently, patient went to the bathroom but does not remember anything else. It seems she was found on the bathroom floor and unknown down time. She was found to be wheezing on exam and then found to be in atrial fibrillation rapid rate. Subsequently admitted. She was also found to be hypothermic. We have been asked to address her for the atrial fibrillation. Currently, patient continues to have cough and shortness of breath. No anginal-type symptoms or palpitations. She denies any prior cardiac issues like coronary disease or cardiomyopathy. Review of Systems Review of Systems: Yes all other systems are reviewed and are negative Constitutional: Constitutional: Reports as per HPI and Reports no additional constitutional complaints Eyes: Eyes: Reports as per HPI and Denies no additional eye complaints ENT: Denies system reviewed and no additional complaints, except as documented and Reports as per HPI Cardiovascular: Cardiovascular: Reports as per HPI, Reports no additional cardiovascular complaints, Denies acrocyanosis, Denies cool extremities, Denies chest pain, Denies leg edema, Denies lightheadedness, Denies palpitations and Reports dyspnea Respiratory: Respiratory: Reports as per HPI, Denies no additional respiratory complaints, Reports dyspnea and Reports wheezing Gastrointestinal: Gastrointestinal: Reports as per HPI and Denies no additional gastrointestinal complaints Genitourinary: Genitourinary: Reports as per HPI Musculoskeletal: Musculoskeletal: Reports no additional musculoskeletal complaints and Reports as per HPI Integumentary/Breasts: Skin/Breast: Reports system reviewed and no additional complaints, except as docu Neurologic: Reports system reviewed and no additional complaints, except as documented and Reports as per HPI Psychiatric: Psychiatric: Reports no additional psychiatric complaints and Reports as per HPI Endocrine: Endocrine: Reports no additional endocrine complaints, Reports as per HPI and Denies palpitations Hematologic/Lymphatic: Hematologic/Lymphatic: Reports no additional hematologic/lymphatic complaints and Reports as per HPI Allergic/Immunologic: Allergic/Immunologic: Reports no additional allergic/immunologic complaints, Reports as per HPI and Reports wheezing PMFSH Past Medical History Medical History Asthma Bacteremia Morbid (severe) obesity due to excess calories Asthma-COPD overlap syndrome Hypothyroidism Pulmonary embolism Depression Hyperlipidemia Rheumatoid arthritis Hypertension Diabetes mellitus, type 2 Family History Pertinent family history: No pertinent family history Social History Social History Household Members: Family Household Members Other:: sister and brother Housing: House Do you presently have visiting nurse or other home services: No (Meals on Wheels) Alcohol intake: never Patient Tobacco Use Status: Never used Tobacco Smoked in Last 30 Days: No Use of substances other than those prescribed or required for medical reasons: No Have you been hit, kicked, punched, or otherwise hurt by someone within the past year? If so, by whom?: No Do you feel safe in your current relationship?: No Current Relationship Is there a partner from a previous relationship who is making you feel unsafe now?: No Are you made to feel afraid or neglected: No Advance Directives: Yes Advance Directives on File: Yes Advance Directives Date on File: 06/07/23 Do you have a plan to hurt others: No Plan Recently lost weight without trying: No Nutrition Risks: No Nutritional Risk Patient : No : No Poor oral hygiene: No service: No Current occupational status: disabled Meds Allergies Allergy/AdvReac Type Severity Reaction Status Date / Time rosuvastatin [From CRESTOR] Allergy Unknown Unknown Verified 02/11/24 05:05 empagliflozin Allergy Unknown Verified 02/11/24 05:05 [From Jardiance] piperacillin [From Zosyn] AdvReac Intermediate Vomiting Verified 02/11/24 05:05 tazobactam [From Zosyn] AdvReac Intermediate Vomiting Verified 02/11/24 05:05 Active Medications: Current Medications Acetaminophen (Acetaminophen 325 Mg Tablet) 650 mg PO Q6H PRN PRN Reason: Pain, Mild (Pain Scale 1-3) Albuterol Sulfate (Albuterol Sulfate 90 Mcg 8 Gm Inhaler) 2 puff INHALE Q4H PRN PRN Reason: Shortness Of Breath Or Wheezing Apixaban (Apixaban 5 Mg Tablet) 5 mg PO BID [facility] Last Admin: 02/12/24 07:59 Dose: 5 mg Atorvastatin Calcium (Atorvastatin Calcium 10 Mg Tablet) 10 mg PO BEDTIME [facility] Last Admin: 02/11/24 21:46 Dose: 10 mg Docusate Sodium (Docusate Sodium 100 Mg Capsule) 100 mg PO DAILY PRN PRN Reason: Constipation Docusate Sodium (Docusate Sodium 100 Mg Capsule) 100 mg PO BID PRN PRN Reason: Constipation Ferrous Sulfate (Ferrous Sulfate 324 Mg Tablet.Dr) 324 mg PO DAILY [facility] Last Admin: 02/12/24 07:59 Dose: 324 mg Fluticasone/Vilanterol (Fluticasone/Vilanterol 200/25 Blst.W.Dev) 1 puff INHALE RDAILY [facility] Last Admin: 02/12/24 07:36 Dose: 1 puff Folic Acid (Folic Acid 1 Mg Tablet) 1 mg PO DAILY [facility] Last Admin: 02/12/24 07:59 Dose: 1 mg Glucose (Glucose Gel 15 Gm Gel..Gram.) 15 gm PO Q15M PRN; Protocol PRN Reason: per Hypoglycemia Standing Ord. Diltiazem HCl 125 mg/ Sodium (Chloride) 125 mls @ 0 mls/hr IVCONT .Q0M [facility]; Protocol Last Admin: 02/12/24 07:56 Dose: 15 mg/hr, 15 mls/hr Dextrose (D10) 250 mls @ 750 mls/hr IV Q15M PRN; Protocol PRN Reason: per Hypoglycemia Standing Ord. Insulin Glargine (Insulin Glargine,Hum.Rec.Anlog 100 Unit/Ml 10 Ml Vial) 35 unit SUBCUT BID [facility] Last Admin: 02/12/24 07:58 Dose: 35 unit Insulin Human Lispro (Insulin Lispro 100 Unit/Ml 3 Ml Vial) 0 unit SUBCUT QIDACHS [facility]; Protocol Last Admin: 02/12/24 07:58 Dose: 6 unit Insulin Human Lispro (Insulin Lispro 100 Unit/Ml 3 Ml Vial) 8 unit SUBCUT QIDACHS [facility] Last Admin: 02/12/24 08:00 Dose: 8 unit Lactulose (Lactulose 20 Gm/30 Ml Solution) 6.7 gm PO BID [facility] Last Admin: 02/12/24 07:56 Dose: 6.7 gm Levalbuterol HCl (Levalbuterol Hcl 1.25 Mg/3 Ml Vial.Neb) 1.25 mg INHALE Q4H PRN PRN Reason: Shortness of Breath/Wheezing Levalbuterol HCl (Levalbuterol Hcl 1.25 Mg/3 Ml Vial.Neb) 1.25 mg INHALE RQ4H [facility] Last Admin: 02/12/24 07:38 Dose: 1.25 mg Levothyroxine Sodium (Levothyroxine Sodium 50 Mcg Tablet) 50 mcg PO DAILY@0600 [facility] Last Admin: 02/12/24 05:45 Dose: 50 mcg Melatonin (Melatonin 3 Mg Tablet) 6 mg PO BEDTIME PRN PRN Reason: Insomnia Montelukast Sodium (Montelukast Sodium 10 Mg Tablet) 10 mg PO BEDTIME [facility] Last Admin: 02/11/24 21:46 Dose: 10 mg Sodium Chloride (0.9 % Sodium Chloride Flush 3 Ml Syringe) [facility] Last Admin: 02/12/24 07:59 Dose: 3 ml Home Medications ?Medication ?Instructions ?Recorded ?Confirmed ?Last Taken ?Type albuterol sulfate 90 mcg/actuation 2 puff inhalation Q4H PRN 01/20/23 02/11/24 01/19/23 History aerosol inhaler Shortness Of Breath Or Wheezing apixaban 5 mg tablet (Eliquis) 5 mg PO BID 01/20/23 02/11/24 11/22/23 History calcium carbonate 600 mg-vitamin 1 tab PO DAILY 01/20/23 02/11/24 11/22/23 History D3 5 mcg (200 unit) tablet citalopram 20 mg tablet 20 mg PO DAILY 01/20/23 02/11/24 11/22/23 History ferrous sulfate 325 mg (65 mg 325 mg PO DAILY 01/20/23 02/11/24 11/22/23 History iron) tablet levothyroxine 50 mcg tablet 50 mcg PO DAILY@0600 01/20/23 02/11/24 11/22/23 History montelukast 10 mg tablet 10 mg PO BEDTIME 01/20/23 02/11/24 11/21/23 History furosemide 20 mg tablet 20 mg PO DAILY 06/01/23 02/11/24 11/22/23 History insulin glargine 100 unit/mL (3 50 unit subcut BID 06/01/23 02/11/24 11/22/23 History mL) subcutaneous pen (Basaglar KwikPen U-100 Insulin) docusate sodium 100 mg capsule 100 mg PO BID PRN Constipation 07/20/23 02/11/24 11/22/23 History folic acid 1 mg tablet 1 mg PO DAILY 07/20/23 02/11/24 11/22/23 History adalimumab 40 mg/0.8 mL 40 mg subcut Q14D 11/22/23 02/11/24 01/26/24 History subcutaneous syringe kit (Humira) fluticasone 500 mcg-salmeterol 50 1 ea inhalation BID 11/22/23 02/11/24 11/22/23 History mcg/dose blistr powdr for inhalation (Wixela Inhub) insulin regular human 100 unit/mL 40 unit subcut TID 02/07/24 02/11/24 Unknown History (3 mL) subcutaneous pen (Novolin R FlexPen) lactulose 10 gram/15 mL oral 10 ml PO BID 02/07/24 02/11/24 Unknown History solution (Enulose) simvastatin 20 mg tablet 20 mg PO BEDTIME 02/07/24 02/11/24 Unknown History spironolactone 100 mg tablet 100 mg PO DAILY 02/07/24 02/11/24 Unknown History Physical Exam Vital Signs: Vital Signs: Last Vital Signs Temp 98.2 F 02/12/24 07:43 Pulse 98 02/12/24 07:56 Resp 18 02/12/24 07:43 BP 160/70 H 02/12/24 07:56 Pulse Ox 100 02/12/24 07:43 O2 Del Method Room Air 02/12/24 07:43 BMI result Body Mass Index 40.8 Const: Other: Coughing during exam, weak General: ill appearing and tired appearing Orientation/consciousness: patient oriented x3 HEENT: Other: Unremarkable Head: Yes normal to inspection Neck: Neck: Yes normal visual inspection Chest: Chest palpation & inspection: normal inspection of the chest Resp: Auscultation: wheezes and diminished lung sounds Cardio: Palpation: normal PMI Heart sounds: S1 normal heart sound present, S2 normal heart sound present, no gallops, no murmurs and no rubs GI: Palpation (GI): Soft to palpation Back/Spine/Pelvis: Other: unremarkable Skin: General skin exam: no rashes or lesions noted Neuro: General: patient oriented x3 Extrem: General: Yes normal to inspection Psych: Mental Status: mental status grossly normal Objective Labs and Meds 02/11/24 05:59 02/12/24 06:43 Lab results: Laboratory Results - last 24 hr 02/11/24 02/11/24 02/11/24 09:11 11:44 15:18 Hold Purple Top Sodium Potassium Chloride Carbon Dioxide Anion Gap BUN Creatinine Estim Creat Clear Calc Estimated GFR POC Glucose 268 H Random Glucose Lactic Acid F/U @ 2Hr 2.4 H* Calcium Magnesium 1.9 Procalcitonin 0.08 02/11/24 02/11/24 02/11/24 16:42 20:39 23:39 Hold Purple Top Sodium Potassium Chloride Carbon Dioxide Anion Gap BUN Creatinine Estim Creat Clear Calc Estimated GFR POC Glucose 322 H 416 H* 437 H* Random Glucose Lactic Acid F/U @ 2Hr Calcium Magnesium Procalcitonin 02/12/24 02/12/24 02/12/24 00:38 01:26 04:19 Hold Purple Top Sodium 134 L Potassium 5.4 H D Chloride 101 Carbon Dioxide 20 L Anion Gap 18 BUN 38 H Creatinine 1.73 H Estim Creat Clear Calc 34.7 Estimated GFR 29 POC Glucose 387 H* 295 H Random Glucose 463 H* Lactic Acid F/U @ 2Hr Calcium 8.3 L D Magnesium Procalcitonin 02/12/24 02/12/24 06:43 07:24 Hold Purple Top SEE NOTE Sodium 136 Potassium 4.0 D Chloride 102 Carbon Dioxide 25 Anion Gap 13 BUN 39 H Creatinine 1.34 Estim Creat Clear Calc 44.8 Estimated GFR 39 POC Glucose 252 H Random Glucose 274 H Lactic Acid F/U @ 2Hr Calcium 8.5 Magnesium Procalcitonin ECG Interpretation: In the EKG, atrial fibrillation at a rate of 90/Min; old septal infarct. Could also be from COPD/body habitus. Assessment and Plan (1) Atrial fibrillation with rapid ventricular response: Status: Acute (2) COPD with acute exacerbation: Status: Acute (3) Hypothermia: Qualifiers: Encounter type: initial encounter Qualified Code(s): T68.XXXA - Hypothermia, initial encounter Status: Acute Plan Currently, atrial fibrillation rate is around 100/110 on telemetry. Patient herself looks quite wheezy. Atrial fibrillation most likely driven because of respiratory issues. We will review the echocardiogram. She has not suitable for rhythm control and will need to be managed by rate control only. We can probably switch the diltiazem drip to oral diltiazem. If necessary, consider digoxin. She is already on Eliquis. Discussed with Dr. Perez. Procedures Date of Service Date of Service: 02/12/24
[2024-02-12 11:08] LABS: Glucose, Whole Blood 289 mg/dL (60-115)
[2024-02-12] MEDS: Ipratropium Bromide 0.5 MG/2.5 ML SOLUTION INHALE ×3 (11:12→19:32)
--- NOTE | 2024-02-12 11:16 | P.PNIM_ITS ---
Subjective Subjective Date of Service: 02/12/24 Interval History: Seen and evaluated this morning reporting dyspnea and wheezing HR still elevated while on Cardizem drip Denies any chest pain Review of Systems Review of Systems: Yes all other systems are reviewed and are negative Physical Exam 2 Vital Signs: Vital Signs: Last Vital Signs Temp 97.8 F 02/12/24 11:12 Pulse 88 02/12/24 11:13 Resp 18 02/12/24 11:13 BP 129/59 L 02/12/24 11:12 Pulse Ox 92 02/12/24 11:12 O2 Del Method Room Air 02/12/24 11:12 O2 Flow Rate 94 02/12/24 11:12 BMI result Body Mass Index 40.8 Const: Other: Constitutional : Awake, interactive, not in distress Neck : Normal inspection, Supple Cardiovascular : irregular irregular , no JVP, treace lower extremity edema Respiratory : good bilateral air entry, no crackles, bilateral wheezing, on RA Gastrointestinal: soft, lax, Normal bowel sounds, Non tender Skin : Warm, Dry Neurological : Alert & oriented x3, No focal deficit Objective Data Active Medications Acetaminophen (Acetaminophen 325 Mg Tablet) 650 mg PO Q6H PRN PRN Reason: Pain, Mild (Pain Scale 1-3) Albuterol Sulfate (Albuterol Sulfate 90 Mcg 8 Gm Inhaler) 2 puff INHALE Q4H PRN PRN Reason: Shortness Of Breath Or Wheezing Apixaban (Apixaban 5 Mg Tablet) 5 mg PO BID [facility] Last Admin: 02/12/24 07:59 Dose: 5 mg Documented By: LINDA Atorvastatin Calcium (Atorvastatin Calcium 10 Mg Tablet) 10 mg PO BEDTIME [facility] Last Admin: 02/11/24 21:46 Dose: 10 mg Documented By: YONATAN Digoxin (Digoxin 0.25 Mg Tablet) 0.25 mg PO Q8H [facility] Stop: 02/13/24 03:01 Digoxin (Digoxin 0.25 Mg Tablet) 0.25 mg PO DAILY [facility] Diltiazem HCl (Diltiazem Hcl 60 Mg Tablet) 60 mg PO QID [facility]; Protocol Docusate Sodium (Docusate Sodium 100 Mg Capsule) 100 mg PO DAILY PRN PRN Reason: Constipation Docusate Sodium (Docusate Sodium 100 Mg Capsule) 100 mg PO BID PRN PRN Reason: Constipation Ferrous Sulfate (Ferrous Sulfate 324 Mg Tablet.Dr) 324 mg PO DAILY [facility] Last Admin: 02/12/24 07:59 Dose: 324 mg Documented By: LINDA Fluticasone/Vilanterol (Fluticasone/Vilanterol 200/25 Blst.W.Dev) 1 puff INHALE RDAILY [facility] Last Admin: 02/12/24 07:36 Dose: 1 puff Documented By: JAMILA Folic Acid (Folic Acid 1 Mg Tablet) 1 mg PO DAILY [facility] Last Admin: 02/12/24 07:59 Dose: 1 mg Documented By: LINDA Glucose (Glucose Gel 15 Gm Gel..Gram.) 15 gm PO Q15M PRN; Protocol PRN Reason: per Hypoglycemia Standing Ord. Diltiazem HCl 125 mg/ Sodium (Chloride) 125 mls @ 0 mls/hr IVCONT .Q0M [facility]; Protocol Last Admin: 02/12/24 07:56 Dose: 15 mg/hr, 15 mls/hr Documented By: LINDA Dextrose (D10) 250 mls @ 750 mls/hr IV Q15M PRN; Protocol PRN Reason: per Hypoglycemia Standing Ord. Insulin Glargine (Insulin Glargine,Hum.Rec.Anlog 100 Unit/Ml 10 Ml Vial) 35 unit SUBCUT BID [facility] Last Admin: 02/12/24 07:58 Dose: 35 unit Documented By: LINDA Insulin Human Lispro (Insulin Lispro 100 Unit/Ml 3 Ml Vial) 0 unit SUBCUT QIDACHS [facility]; Protocol Last Admin: 02/12/24 07:58 Dose: 6 unit Documented By: LINDA Insulin Human Lispro (Insulin Lispro 100 Unit/Ml 3 Ml Vial) 8 unit SUBCUT QIDACHS [facility] Last Admin: 02/12/24 08:00 Dose: 8 unit Documented By: LINDA Ipratropium [place] (Ipratropium [place] 0.5 Mg/2.5 Ml Solution) 0.5 mg INHALE RQ4H WHILE AWAKE [facility] Last Admin: 02/12/24 11:12 Dose: 0.5 mg Documented By: JAMILA Lactulose (Lactulose 20 Gm/30 Ml Solution) 6.7 gm PO BID [facility] Last Admin: 02/12/24 07:56 Dose: 6.7 gm Documented By: LINDA Levalbuterol HCl (Levalbuterol Hcl 1.25 Mg/3 Ml Vial.Neb) 1.25 mg INHALE Q4H PRN PRN Reason: Shortness of Breath/Wheezing Levalbuterol HCl (Levalbuterol Hcl 1.25 Mg/3 Ml Vial.Neb) 1.25 mg INHALE RQ4H [facility] Last Admin: 02/12/24 11:12 Dose: 1.25 mg Documented By: JAMILA Levothyroxine Sodium (Levothyroxine Sodium 50 Mcg Tablet) 50 mcg PO DAILY@0600 [facility] Last Admin: 02/12/24 05:45 Dose: 50 mcg Documented By: DIAZDEVianey Melatonin (Melatonin 3 Mg Tablet) 6 mg PO BEDTIME PRN PRN Reason: Insomnia Montelukast Sodium (Montelukast Sodium 10 Mg Tablet) 10 mg PO BEDTIME [facility] Last Admin: 02/11/24 21:46 Dose: 10 mg Documented By: YONATAN Sodium Chloride (0.9 % Sodium Chloride Flush 3 Ml Syringe) 3 ml IVFLUSH QSHIFT [facility] Last Admin: 02/12/24 07:59 Dose: 3 ml Documented By: LINDA Labs 02/11/24 05:59 02/12/24 06:43 Labs: Laboratory Results - last 24 hr 02/11/24 02/11/24 02/11/24 09:11 11:44 15:18 Hold Purple Top Anion Gap Estim Creat Clear Calc Estimated GFR POC Glucose 268 H Random Glucose Lactic Acid F/U @ 2Hr 2.4 H* Calcium Magnesium 1.9 Procalcitonin 0.08 02/11/24 02/11/24 02/11/24 16:42 20:39 23:39 Hold Purple Top Anion Gap Estim Creat Clear Calc Estimated GFR POC Glucose 322 H 416 H* 437 H* Random Glucose Lactic Acid F/U @ 2Hr Calcium Magnesium Procalcitonin 02/12/24 02/12/24 02/12/24 00:38 01:26 04:19 Hold Purple Top Anion Gap 18 Estim Creat Clear Calc 34.7 Estimated GFR 29 POC Glucose 387 H* 295 H Random Glucose 463 H* Lactic Acid F/U @ 2Hr Calcium 8.3 L D Magnesium Procalcitonin 02/12/24 02/12/24 02/12/24 06:43 07:24 11:04 Hold Purple Top SEE NOTE Anion Gap 13 Estim Creat Clear Calc 44.8 Estimated GFR 39 POC Glucose 252 H 289 H Random Glucose 274 H Lactic Acid F/U @ 2Hr Calcium 8.5 Magnesium Procalcitonin Microbiology Microbiology Results: Microbiology 02/11/24 08:46 Blood Culture - Preliminary Blood - Venous No growth after 24 hours. Assessment and Plan (1) Atrial fibrillation with rapid ventricular response: Status: Acute (2) COPD with acute exacerbation: Status: Acute (3) Hypoglycemia: Status: Acute Plan Pt is a 73-year-old female with a PMH significant for?asthma/COPD overlap syndrome not on home O2, hx of PE on Eliquis, insulin-dependent type 2 diabetes, hypothyroidism, GERD, GRIMES, and mood disorder who presents to the ED after fall at home. Pt will be admitted to the hospital for treatment and further evaluation of new onset AFib with RVR and acute COPD/asthma overlap syndrome exacerbation. New onset AFib with RVR Better controlled Wean diltiazem drip down as tolerated Start PO Cardizem 60mg QID Load Digoxin Continue Eliquis Echocardiogram Cardiology input appreciated Keep on telemetry Acute COPD/asthma overlap exacerbation Continue Nebs, Solu-Medrol cetirizine, benzonatate O2 supplement if needed Monitor respiratory status Hypopthermia, resolved resolved, Likely secondary to fall at home Hypoglycemia, resolved resolved Monitor POC Fall at home Imaging of head, C-spine, right knee negative PT evaluation Lactic acidosis Likely secondary to nebulizer usage, and fall at home no indication to continue antibiotics at this time, low PRocal Elevated BNP Has chronic lower leg edema and occasional ascites secondary to GRIMES Continue home Lasix Check echocardiogram Monitor fluid status Hx of DVT/PE Continue Eliquis HLD Continue statin Hypothyroidism Continue levothyroxine GRIMES Continue home furosemide, lactulose Hyperglycemia 2/2 Insulin-dependent diabetes type 2 restart low dose Lantus Place on sliding scale insulin Mood disorder Continue mood stabilizers Full Code DVT Prophylaxis: On Eliquis Pt will require a hospitalization overnight for treatment of?new onset AFib with RVR and acute COPD/asthma overlap syndrome exacerbation. Patient will require hospitalization as she has on a diltiazem drip, and need close monitoring cardiac function, specialist consultation with Cardiology, as well as administration of IV steroids, breathing treatments and evaluation by PT. Quality Stroke Does the patient have a stroke diagnosis?: No VTE Prior VTE?: No VTE Risk Level:: Medical - moderate - high VTE Device Contraindication: Treatment Not Indicated VTE Drug Contraindication: N/A - Med Ordered
[2024-02-12] MEDS: methylPREDNISolone Sod Succ 40 MG/ML VIAL IVPUSH ×2 (11:52→23:58)
[2024-02-12] MEDS: Insulin Glargine,Hum.rec.anlog 100 UNIT/ML 10 ML VIAL 10 UNIT SUBCUT (11:52)
[2024-02-12] MEDS: Digoxin 0.25 MG TABLET PO ×2 (11:53→18:39)
[2024-02-12] MEDS: dilTIAZem HCL 60 MG TABLET PO ×3 (13:59→21:40)
--- NOTE | 2024-02-12 14:44 | PC.NURSE ---
Sams removed at 1330, sams intact upon removal and pt tolerated well. Pt due to void at 1930, all other needs met at this time.
[2024-02-12 16:31] LABS: Glucose, Whole Blood 408 mg/dL (60-115)
[2024-02-12 21:18] LABS: Glucose, Whole Blood 418 mg/dL (60-115)
[2024-02-12] MEDS: Montelukast Sodium 10 MG TABLET PO (21:40)
[2024-02-12] MEDS: Atorvastatin Calcium 10 MG TABLET PO (21:41)
[2024-02-12] MEDS: Insulin Glargine,Hum.rec.anlog 100 UNIT/ML 10 ML VIAL 45 UNIT SUBCUT (21:42)
[2024-02-13] VITALS (14 sets, daily range): BP systolic 129–155; BP diastolic 58–78; PULSE 82–99; RESP 16–20; TEMP 35.8–37.2; O2SAT 93–98
[2024-02-13 00:41] LABS: Glucose, Whole Blood 327 mg/dL (60-115)
[2024-02-13] MEDS: Insulin Regular, Human 100 UNIT/ML 3 ML VIAL 8 UNIT IVPUSH (01:14)
[2024-02-13 01:56] LABS: Anion Gap 16 (12-20); Blood Urea Nitrogen 47 mg/dL (9-16); Calcium 8.5 mg/dL (8.4-10.2); Carbon Dioxide 22 mmol/L (22-29); Chloride 100 mmol/L (96-108); Creatinine Clr Calc Pharmacy 39.7; Estimated Glomerular Filt Rate 34; Glucose Random 349 mg/dL (60-115); Magnesium 2.1 mg/dL (1.6-2.6); Potassium 4.8 mmol/L (3.3-5.1); Sodium 133 mmol/L (135-145)
[2024-02-13 02:17] LABS: Digoxin 0.9 ng/mL (0.8-2.0)
[2024-02-13] MEDS: Digoxin 0.25 MG TABLET PO ×2 (03:47→08:31)
[2024-02-13] MEDS: levalbuterol HCL 1.25 MG/3 ML VIAL.NEB INHALE ×6 (04:03→22:32)
[2024-02-13] MEDS: Levothyroxine Sodium 50 MCG TABLET PO (05:16)
[2024-02-13 07:18] LABS: Anion Gap 15 (12-20); Blood Urea Nitrogen 49 mg/dL (9-16); Calcium 8.4 mg/dL (8.4-10.2); Carbon Dioxide 23 mmol/L (22-29); Chloride 101 mmol/L (96-108); Creatinine Clr Calc Pharmacy 41.7; Estimated Glomerular Filt Rate 36; Glucose Random 278 mg/dL (60-115); Magnesium 2.1 mg/dL (1.6-2.6); Potassium 4.8 mmol/L (3.3-5.1); Sodium 134 mmol/L (135-145)
[2024-02-13 08:22] LABS: Glucose, Whole Blood 269 mg/dL (60-115)
[2024-02-13] MEDS: Fluticasone/Vilanterol 200/25 BLST.W.DEV 1 PUFF INHALE (08:29)
[2024-02-13] MEDS: Ipratropium Bromide 0.5 MG/2.5 ML SOLUTION INHALE ×4 (08:30→19:03)
[2024-02-13] MEDS: Insulin Lispro 100 UNIT/ML 3 ML VIAL 8 UNIT SUBCUT ×3 (08:31→16:57)
[2024-02-13] MEDS: Insulin Lispro 100 UNIT/ML 3 ML VIAL SUBCUT ×3 (08:31→16:57)
[2024-02-13] MEDS: dilTIAZem HCL 60 MG TABLET PO (08:31)
[2024-02-13] MEDS: Ferrous Sulfate 324 MG TABLET.DR PO (08:31)
[2024-02-13] MEDS: Apixaban 5 MG TABLET PO ×2 (08:31→19:39)
[2024-02-13] MEDS: Insulin Glargine,Hum.rec.anlog 100 UNIT/ML 10 ML VIAL 45 UNIT SUBCUT (08:31)
[2024-02-13] MEDS: Folic Acid 1 MG TABLET PO (08:31)
[2024-02-13] MEDS: Lactulose 20 GM/30 ML SOLUTION 6.7 GM PO (08:32)
--- NOTE | 2024-02-13 10:18 | PC.NURSE ---
Addendum entered by Dandy Chao RN 02/13/24 16:23: informed of all critical POC values Addendum entered by Dandy Chao RN 02/13/24 11:45: per md give 240 dose of dilt Original Note: pt hasnt been voiding, bladder scanned for 700. informed and pt str cathed for 200ml, first str cath post sams removal
--- NOTE | 2024-02-13 10:38 | PM.PNCARD ---
Subjective Subjective Date of Service: 02/13/24 Interval history: Slightly better compared to yesterday. Atrial fibrillation rate also seems better. She is off the Cardizem drip. No chest pains. Review of Systems Review of Systems Yes all other systems are reviewed and are negative Constitutional: Reports as per HPI and Reports no additional constitutional complaints Eyes: Reports as per HPI and Denies no additional eye complaints Denies system reviewed and no additional complaints, except as documented and Reports as per HPI Cardiovascular: Reports as per HPI, Reports no additional cardiovascular complaints, Denies acrocyanosis, Denies cool extremities, Denies chest pain, Denies leg edema, Denies lightheadedness, Denies palpitations and Reports dyspnea Respiratory: Reports as per HPI, Denies no additional respiratory complaints, Reports dyspnea and Reports wheezing Gastrointestinal: Reports as per HPI and Denies no additional gastrointestinal complaints Musculoskeletal: Reports no additional musculoskeletal complaints and Reports as per HPI Skin/Breast: Reports system reviewed and no additional complaints, except as docu Reports system reviewed and no additional complaints, except as documented and Reports as per HPI Psychiatric: Reports no additional psychiatric complaints and Reports as per HPI Endocrine: Reports no additional endocrine complaints, Reports as per HPI and Denies palpitations Hematologic/Lymphatic: Reports no additional hematologic/lymphatic complaints and Reports as per HPI Allergic/Immunologic: Reports no additional allergic/immunologic complaints, Reports as per HPI and Reports wheezing Physical Exam Vital Signs: Last Vital Signs Temp 97.4 F 02/13/24 08:55 Pulse 86 02/13/24 08:32 Resp 18 02/13/24 08:32 BP 137/74 02/13/24 07:59 Pulse Ox 96 02/13/24 07:59 O2 Del Method Room Air 02/13/24 07:59 O2 Flow Rate 94 02/12/24 11:12 BMI result Body Mass Index 40.8 Const Other: Coughing during exam, weak General: ill appearing and tired appearing Orientation/consciousness: patient oriented x3 HEENT Other: Unremarkable Head: Yes normal to inspection Neck Neck: Yes normal visual inspection Chest Chest palpation & inspection: normal inspection of the chest Resp Auscultation: wheezes and diminished lung sounds Cardio Palpation: normal PMI Heart sounds: S1 normal heart sound present, S2 normal heart sound present, no gallops, no murmurs and no rubs GI Palpation (GI): Soft to palpation Back/Spine/Pelvis Other: unremarkable Skin General skin exam: no rashes or lesions noted Neuro General: patient oriented x3 Extrem General: Yes normal to inspection Psych Mental Status: mental status grossly normal Objective Labs and Meds 02/11/24 05:59 02/13/24 06:22 Lab results: Laboratory Results - last 24 hr 02/12/24 02/12/24 02/12/24 11:04 16:29 21:14 Hold Purple Top Sodium Potassium Chloride Carbon Dioxide Anion Gap BUN Creatinine Estim Creat Clear Calc Estimated GFR POC Glucose 289 H 408 H* 418 H* Random Glucose Calcium Magnesium Digoxin 02/13/24 02/13/24 02/13/24 00:37 01:22 06:22 Hold Purple Top SEE NOTE SEE NOTE Sodium 133 L 134 L Potassium 4.8 4.8 Chloride 100 101 Carbon Dioxide 22 23 Anion Gap 16 15 BUN 47 H 49 H Creatinine 1.51 H 1.44 H Estim Creat Clear Calc 39.7 41.7 Estimated GFR 34 36 POC Glucose 327 H Random Glucose 349 H 278 H Calcium 8.5 8.4 Magnesium 2.1 2.1 Digoxin 0.9 02/13/24 02/13/24 06:22 07:59 Hold Purple Top Sodium Potassium Chloride Carbon Dioxide Anion Gap BUN Creatinine Estim Creat Clear Calc Estimated GFR POC Glucose 269 H Random Glucose Calcium Magnesium Cancelled Digoxin Progress Note: A&P Assessment and plan (1) Atrial fibrillation with rapid ventricular response: Status: Acute (2) COPD with acute exacerbation: Status: Acute Plan Initially had atrial fibrillation with rapid rate but seems somewhat improved. Rate is around 90-100/Min. She is on combination of diltiazem and digoxin. Already on anticoagulation with Eliquis. Echocardiogram with LVEF of 65-70%. Mild mitral stenosis and moderate mitral annular calcification. She has slight renal insufficiency and hence digoxin levels will need to be checked and dose will need to be adjusted accordingly. We will also go up, then just use diltiazem only at higher dose. Atrial fibrillation is most likely driven by her respiratory issues. Discussed with Dr. Perez. Time Spent With Patient Time: Total time managing care of this patient today ____ minutes. Progress Note: Quality Stroke Does the patient have a stroke diagnosis?: No Procedures Date of Service Date of Service: 02/13/24
[2024-02-13 11:28] LABS: Glucose, Whole Blood 365 mg/dL (60-115)
[2024-02-13] MEDS: dilTIAZem HCL CD 240 MG CAP.ER.DEG PO (11:58)
[2024-02-13] MEDS: methylPREDNISolone Sod Succ 40 MG/ML VIAL IVPUSH ×2 (11:59→23:59)
[2024-02-13 12:13] LABS: Appearance Urine Cloudy; Color Urine Dark Yellow; Glucose Urine UA 100 mg/dL (Negative); Leukocyte Esterase Urine Trace (Negative); Nitrite Urine Negative (Negative); PH 5.5 (5.0-9.0); UMIC TRIGGER UACC YES; Urine Blood Large (3+) (Negative); Urine Ketones Trace mg/dL (Negative); Urine Protein 30 (1+) mg/dL (Neg-Trace)
[2024-02-13 12:18] LABS: Bacteria Urine None Seen (None Seen); Hyaline Casts Urine 0-2 /LPF (0-2); RBC Urine >20 /HPF (0-2); Squamous Epithelial Cell Urine 0-2 /HPF (0-2); UACC Culture Trigger YES
--- NOTE | 2024-02-13 14:19 | P.PNIM_ITS ---
Subjective Subjective Date of Service: 02/13/24 Interval History: Seen and evaluated this morning HR better controlled Still reporting dyspnea and wheezing Denies any chest pain Review of Systems Review of Systems: Yes all other systems are reviewed and are negative Physical Exam 2 Vital Signs: Vital Signs: Last Vital Signs Temp 97.4 F 02/13/24 12:00 Pulse 95 02/13/24 12:21 Resp 16 02/13/24 12:21 BP 146/67 H 02/13/24 12:00 Pulse Ox 94 02/13/24 12:00 O2 Del Method Room Air 02/13/24 12:00 O2 Flow Rate 94 02/12/24 11:12 BMI result Body Mass Index 40.8 Const: Other: Constitutional : Awake, interactive, not in distress Neck : Normal inspection, Supple Cardiovascular : irregular irregular , no JVP, trace lower extremity edema Respiratory : fair bilateral air entry, no crackles, bilateral wheezing, on RA Gastrointestinal: soft, lax, Normal bowel sounds, Non tender Skin : Warm, Dry Neurological : Alert & oriented x3, No focal deficit Objective Data Active Medications Acetaminophen (Acetaminophen 325 Mg Tablet) 650 mg PO Q6H PRN PRN Reason: Pain, Mild (Pain Scale 1-3) Albuterol Sulfate (Albuterol Sulfate 90 Mcg 8 Gm Inhaler) 2 puff INHALE Q4H PRN PRN Reason: Shortness Of Breath Or Wheezing Apixaban (Apixaban 5 Mg Tablet) 5 mg PO BID [facility] Last Admin: 02/13/24 08:31 Dose: 5 mg Documented By: AZIZA Atorvastatin Calcium (Atorvastatin Calcium 10 Mg Tablet) 10 mg PO BEDTIME [facility] Last Admin: 02/12/24 21:41 Dose: 10 mg Documented By: JERMAINE Digoxin (Digoxin 0.125 Mg Tablet) 0.125 mg PO DAILY [facility] Diltiazem HCl (Diltiazem Hcl Cd 240 Mg Cap.Er.Deg) 240 mg PO DAILY [facility]; Protocol Last Admin: 02/13/24 11:58 Dose: 240 mg Documented By: AZIZA Docusate Sodium (Docusate Sodium 100 Mg Capsule) 100 mg PO DAILY PRN PRN Reason: Constipation Docusate Sodium (Docusate Sodium 100 Mg Capsule) 100 mg PO BID [facility] Ferrous Sulfate (Ferrous Sulfate 324 Mg Tablet.) 324 mg PO DAILY [facility] Last Admin: 02/13/24 08:31 Dose: 324 mg Documented By: AZIZA Fluticasone/Vilanterol (Fluticasone/Vilanterol 200/25 Blst.W.Dev) 1 puff INHALE RDAILY [facility] Last Admin: 02/13/24 08:29 Dose: 1 puff Documented By: JAMILA Folic Acid (Folic Acid 1 Mg Tablet) 1 mg PO DAILY [facility] Last Admin: 02/13/24 08:31 Dose: 1 mg Documented By: AZIZA Glucose (Glucose Gel 15 Gm Gel..Gram.) 15 gm PO Q15M PRN; Protocol PRN Reason: per Hypoglycemia Standing Ord. Dextrose (D10) 250 mls @ 750 mls/hr IV Q15M PRN; Protocol PRN Reason: per Hypoglycemia Standing Ord. Insulin Glargine (Insulin Glargine,Hum.Rec.Anlog 100 Unit/Ml 10 Ml Vial) 55 unit SUBCUT BID [facility] Insulin Human Lispro (Insulin Lispro 100 Unit/Ml 3 Ml Vial) 0 unit SUBCUT QIDACHS [facility]; Protocol Last Admin: 02/13/24 11:59 Dose: 12 unit Documented By: AZIZA Insulin Human Lispro (Insulin Lispro 100 Unit/Ml 3 Ml Vial) 8 unit SUBCUT QIDACHS [facility] Last Admin: 02/13/24 11:58 Dose: 8 unit Documented By: AZIZA Ipratropium [place] (Ipratropium [place] 0.5 Mg/2.5 Ml Solution) 0.5 mg INHALE RQ4H WHILE AWAKE [facility] Last Admin: 02/13/24 12:19 Dose: 0.5 mg Documented By: JAMILA Lactulose (Lactulose 20 Gm/30 Ml Solution) 20 gm PO BID [facility] Levalbuterol HCl (Levalbuterol Hcl 1.25 Mg/3 Ml Vial.Neb) 1.25 mg INHALE Q4H PRN PRN Reason: Shortness of Breath/Wheezing Levalbuterol HCl (Levalbuterol Hcl 1.25 Mg/3 Ml Vial.Neb) 1.25 mg INHALE RQ4H [facility] Last Admin: 02/13/24 12:21 Dose: 1.25 mg Documented By: JAMILA Levothyroxine Sodium (Levothyroxine Sodium 50 Mcg Tablet) 50 mcg PO DAILY@0600 [facility] Last Admin: 02/13/24 05:16 Dose: 50 mcg Documented By: JERMAINE Melatonin (Melatonin 3 Mg Tablet) 6 mg PO BEDTIME PRN PRN Reason: Insomnia Methylprednisolone Sodium Succinate (Methylprednisolone Sod Succ 40 Mg/Ml Vial) 40 mg IVPUSH Q12H [facility] Last Admin: 02/13/24 11:59 Dose: 40 mg Documented By: AZIZA Montelukast Sodium (Montelukast Sodium 10 Mg Tablet) 10 mg PO BEDTIME [facility] Last Admin: 02/12/24 21:40 Dose: 10 mg Documented By: JERMAINE Sodium Chloride (0.9 % Sodium Chloride Flush 3 Ml Syringe) 3 ml IVFLUSH QSHIFT [facility] Last Admin: 02/13/24 10:19 Dose: Not Given Documented By: AZIZA Non-Admin Reason: Previously Administered Labs 02/11/24 05:59 02/13/24 06:22 Labs: Laboratory Results - last 24 hr 02/12/24 02/12/24 02/13/24 16:29 21:14 00:37 Hold Purple Top Anion Gap Estim Creat Clear Calc Estimated GFR POC Glucose 408 H* 418 H* 327 H Random Glucose Calcium Magnesium Urine Color Urine Appearance Urine pH Ur Specific [place] Urine Protein Urine Glucose (UA) Urine Ketones Urine Blood Urine Nitrite Ur Leukocyte Esterase Urine RBC Urine WBC Ur Squamous Epith Cells Urine Bacteria Hyaline Casts Digoxin 02/13/24 02/13/24 02/13/24 01:22 06:22 06:22 Hold Purple Top SEE NOTE SEE NOTE Anion Gap 16 15 Estim Creat Clear Calc 39.7 41.7 Estimated GFR 34 36 POC Glucose Random Glucose 349 H 278 H Calcium 8.5 8.4 Magnesium 2.1 2.1 Cancelled Urine Color Urine Appearance Urine pH Ur Specific [place] Urine Protein Urine Glucose (UA) Urine Ketones Urine Blood Urine Nitrite Ur Leukocyte Esterase Urine RBC Urine WBC Ur Squamous Epith Cells Urine Bacteria Hyaline Casts Digoxin 0.9 02/13/24 02/13/24 02/13/24 07:59 11:21 11:56 Hold Purple Top Anion Gap Estim Creat Clear Calc Estimated GFR POC Glucose 269 H 365 H* Random Glucose Calcium Magnesium Urine Color Dark Yellow Urine Appearance Cloudy Urine pH 5.5 Ur Specific [place] 1.020 Urine Protein 30 (1+) H Urine Glucose (UA) 100 H Urine Ketones Trace Urine Blood Large (3+) H Urine Nitrite Negative Ur Leukocyte Esterase Trace H Urine RBC >20 H Urine WBC 6-10 H Ur Squamous Epith Cells 0-2 Urine Bacteria None Seen Hyaline Casts 0-2 Digoxin Microbiology Microbiology Results: Microbiology 02/11/24 09:11 Blood Culture - Preliminary Blood - Venous No growth after 48 hours. 02/11/24 08:46 Blood Culture - Preliminary Blood - Venous No growth after 48 hours. 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 Pt will be admitted to the hospital for treatment and further evaluation of new onset AFib with RVR and acute COPD/asthma overlap syndrome exacerbation. New onset AFib with RVR Better controlled DC diltiazem drip down as tolerated Start PO Cardizem 360mg CD DC Digoxin Continue Eliquis Echocardiogram EF 65-70% Cardiology input appreciated Keep on telemetry Acute COPD/asthma overlap exacerbation Continue Nebs, Solu-Medrol cetirizine, benzonatate O2 supplement if needed Monitor respiratory status Hypopthermia resolved, Likely secondary to fall at home Hypoglycemia, resolved Monitor POC Fall at home Imaging of head, C-spine, right knee negative PT evaluation Lactic acidosis Likely secondary to nebulizer usage, and fall at home no indication to continue antibiotics at this time, low PRocal Elevated BNP Has chronic lower leg edema and occasional ascites secondary to GRIMES Continue home Lasix Check echocardiogram Monitor fluid status Hx of DVT/PE Continue Eliquis HLD Continue statin Hypothyroidism Continue levothyroxine GRIMES Continue home furosemide, lactulose Hyperglycemia 2/2 Insulin-dependent diabetes type 2 restart low dose Lantus Place on sliding scale insulin Mood disorder Continue mood stabilizers Full Code DVT Prophylaxis: On Eliquis Pt will require a hospitalization overnight for treatment of?new onset AFib with RVR and acute COPD/asthma overlap syndrome exacerbation. Patient will require need close monitoring cardiac function, as well as administration of IV steroids, breathing treatments and evaluation by PT. Quality Stroke Does the patient have a stroke diagnosis?: No VTE Prior VTE?: No VTE Risk Level:: Medical - moderate - high VTE Device Contraindication: Treatment Not Indicated VTE Drug Contraindication: N/A - Med Ordered
[2024-02-13] MEDS: Lactulose 20 GM/30 ML SOLUTION PO ×2 (14:20→19:42)
[2024-02-13] MEDS: Docusate Sodium 100 MG CAPSULE PO ×2 (14:20→19:40)
[2024-02-13 16:14] LABS: Glucose, Whole Blood 356 mg/dL (60-115)
[2024-02-13] MEDS: Atorvastatin Calcium 10 MG TABLET PO (19:40)
[2024-02-13] MEDS: Montelukast Sodium 10 MG TABLET PO (19:41)
[2024-02-13] MEDS: Melatonin 3 MG TABLET 6 MG PO (19:41)
[2024-02-13] MEDS: 0.9 % Sodium Chloride Flush 3 ML SYRINGE IVFLUSH (19:42)
[2024-02-13 20:25] LABS: Glucose, Whole Blood 410 mg/dL (60-115)
[2024-02-13] MEDS: Insulin Glargine,Hum.rec.anlog 100 UNIT/ML 10 ML VIAL 55 UNIT SUBCUT (21:50)
[2024-02-13] MEDS: Insulin Regular, Human 100 UNIT/ML 3 ML VIAL 10 UNIT IVPUSH (22:17)
[2024-02-14] VITALS (14 sets, daily range): BP systolic 126–171; BP diastolic 51–66; PULSE 75–105; RESP 16–20; TEMP 36.1–37.2; O2SAT 90–99
[2024-02-14 00:23] LABS: Glucose, Whole Blood 343 mg/dL (60-115)
[2024-02-14] MEDS: levalbuterol HCL 1.25 MG/3 ML VIAL.NEB INHALE ×6 (02:48→23:37)
[2024-02-14] MEDS: Levothyroxine Sodium 50 MCG TABLET PO (05:30)
[2024-02-14 06:24] LABS: Hematocrit 35.6 % (37.0-47.0); Hemoglobin 11.7 g/dl (12.0-16.0); Mean Corpuscular HGB Conc 32.9 g/dl (31.0-35.0); Mean Corpuscular Hemoglobin 29.6 pg (27.0-33.0); Mean Corpuscular Volume 90.1 fL (80.0-98.0); Mean Platelet Volume 10.9 fL (9.4-12.3); Platelet Count 156 X10*3/uL (160-400); Red Blood Count 3.95 X10*6/uL (4.20-5.50); Red Cell Distribution Width 18.5 % (11.0-16.0); White Blood Count 13.2 X10*3/uL (4.8-10.8)
[2024-02-14 06:47] LABS: Anion Gap 17 (12-20); Blood Urea Nitrogen 63 mg/dL (9-16); Calcium 8.4 mg/dL (8.4-10.2); Carbon Dioxide 22 mmol/L (22-29); Chloride 96 mmol/L (96-108); Creatinine Clr Calc Pharmacy 32.2; Estimated Glomerular Filt Rate 27; Potassium 4.7 mmol/L (3.3-5.1); Sodium 130 mmol/L (135-145)
[2024-02-14] MEDS: Fluticasone/Vilanterol 200/25 BLST.W.DEV 1 PUFF INHALE (07:20)
[2024-02-14] MEDS: Ipratropium Bromide 0.5 MG/2.5 ML SOLUTION INHALE ×4 (07:20→18:56)
[2024-02-14 07:29] LABS: Glucose, Whole Blood 339 mg/dL (60-115)
[2024-02-14] MEDS: predniSONE 20 MG TABLET 40 MG PO (08:15)
[2024-02-14] MEDS: Folic Acid 1 MG TABLET PO (08:16)
[2024-02-14] MEDS: Apixaban 5 MG TABLET PO ×2 (08:16→20:36)
[2024-02-14] MEDS: Ferrous Sulfate 324 MG TABLET.DR PO (08:16)
[2024-02-14] MEDS: Lactulose 20 GM/30 ML SOLUTION PO ×2 (08:16→20:36)
[2024-02-14] MEDS: dilTIAZem HCL CD 180 MG CAP.ER.24H 360 MG PO (08:16)
[2024-02-14] MEDS: Docusate Sodium 100 MG CAPSULE PO ×2 (08:16→20:36)
[2024-02-14] MEDS: Insulin Lispro 100 UNIT/ML 3 ML VIAL SUBCUT ×5 (08:17→22:27)
[2024-02-14] MEDS: Insulin Lispro 100 UNIT/ML 3 ML VIAL 10 UNIT SUBCUT ×3 (08:17→17:02)
[2024-02-14] MEDS: 0.9 % Sodium Chloride Flush 3 ML SYRINGE IVFLUSH ×3 (08:18→23:40)
[2024-02-14] MEDS: Insulin Glargine,Hum.rec.anlog 100 UNIT/ML 10 ML VIAL 60 UNIT SUBCUT ×2 (08:18→20:35)
[2024-02-14 09:02] LABS: Glucose Random 395 mg/dL (60-115)
--- NOTE | 2024-02-14 10:26 | MHC.CM.PN ---
PT is recommending STR; CM will follow.
[2024-02-14 11:43] LABS: Glucose, Whole Blood 381 mg/dL (60-115)
--- NOTE | 2024-02-14 12:41 | HO.PM.IMPN ---
Subjective Subjective Date of Service: 02/14/24 Interval History: Seen and evaluated this morning Still wheezy and dyspneic HR better controlled Elevated Glucose level Denies any chest pain Review of Systems Review of Systems: Yes all other systems are reviewed and are negative Physical Exam Vital Signs: Vital Signs: Last Vital Signs Temp 98.4 F 02/14/24 11:35 Pulse 96 02/14/24 11:35 Resp 16 02/14/24 11:35 BP 145/63 H 02/14/24 11:35 Pulse Ox 95 02/14/24 11:35 O2 Del Method Room Air 02/14/24 11:35 O2 Flow Rate 94 02/12/24 11:12 BMI result Body Mass Index 40.8 Const: Other: Constitutional : Awake, interactive, not in distress Neck : Normal inspection, Supple Cardiovascular : irregular irregular , no JVP, trace lower extremity edema Respiratory : fair bilateral air entry, no crackles, bilateral wheezing at rest Gastrointestinal: soft, lax, Normal bowel sounds, Non tender Skin : Warm, Dry Neurological : Alert & oriented x3, No focal deficit Objective Data Active Medications Acetaminophen (Acetaminophen 325 Mg Tablet) 650 mg PO Q6H PRN PRN Reason: Pain, Mild (Pain Scale 1-3) Albuterol Sulfate (Albuterol Sulfate 90 Mcg 8 Gm Inhaler) 2 puff INHALE Q4H PRN PRN Reason: Shortness Of Breath Or Wheezing Apixaban (Apixaban 5 Mg Tablet) 5 mg PO BID [facility] Last Admin: 02/14/24 08:16 Dose: 5 mg Documented By: GRETCHEN Atorvastatin Calcium (Atorvastatin Calcium 10 Mg Tablet) 10 mg PO BEDTIME [facility] Last Admin: 02/13/24 19:40 Dose: 10 mg Documented By: TANNER Diltiazem HCl (Diltiazem Hcl Cd 180 Mg Cap.Er.24h) 360 mg PO DAILY [facility]; Protocol Last Admin: 02/14/24 08:16 Dose: 360 mg Documented By: GRETCHEN Docusate Sodium (Docusate Sodium 100 Mg Capsule) 100 mg PO DAILY PRN PRN Reason: Constipation Docusate Sodium (Docusate Sodium 100 Mg Capsule) 100 mg PO BID [facility] Last Admin: 02/14/24 08:16 Dose: 100 mg Documented By: GRETCHEN Ferrous Sulfate (Ferrous Sulfate 324 Mg Tablet.Dr) 324 mg PO DAILY [facility] Last Admin: 02/14/24 08:16 Dose: 324 mg Documented By: GRETCHEN Fluticasone/Vilanterol (Fluticasone/Vilanterol 200/25 Blst.W.Dev) 1 puff INHALE RDAILY [facility] Last Admin: 02/14/24 07:20 Dose: 1 puff Documented By: FLAKITA Folic Acid (Folic Acid 1 Mg Tablet) 1 mg PO DAILY [facility] Last Admin: 02/14/24 08:16 Dose: 1 mg Documented By: GRETCHEN Glucose (Glucose Gel 15 Gm Gel..Gram.) 15 gm PO Q15M PRN; Protocol PRN Reason: per Hypoglycemia Standing Ord. Dextrose (D10) 250 mls @ 750 mls/hr IV Q15M PRN; Protocol PRN Reason: per Hypoglycemia Standing Ord. Insulin Glargine (Insulin Glargine,Hum.Rec.Anlog 100 Unit/Ml 10 Ml Vial) 60 unit SUBCUT BID [facility] Last Admin: 02/14/24 08:18 Dose: 60 unit Documented By: GRETCHEN Insulin Human Lispro (Insulin Lispro 100 Unit/Ml 3 Ml Vial) 0 unit SUBCUT QIDACHS [facility]; Protocol Last Admin: 02/14/24 11:49 Dose: 12 unit Documented By: GRETCHEN Insulin Human Lispro (Insulin Lispro 100 Unit/Ml 3 Ml Vial) 10 unit SUBCUT QIDACHS [facility] Last Admin: 02/14/24 11:49 Dose: 10 unit Documented By: GRETCHEN Ipratropium [place] (Ipratropium [place] 0.5 Mg/2.5 Ml Solution) 0.5 mg INHALE RQ4H WHILE AWAKE [facility] Last Admin: 02/14/24 11:07 Dose: 0.5 mg Documented By: FLAKITA Lactulose (Lactulose 20 Gm/30 Ml Solution) 20 gm PO BID [facility] Last Admin: 02/14/24 08:16 Dose: 20 gm Documented By: GRETCHEN Levalbuterol HCl (Levalbuterol Hcl 1.25 Mg/3 Ml Vial.Neb) 1.25 mg INHALE Q4H PRN PRN Reason: Shortness of Breath/Wheezing Levalbuterol HCl (Levalbuterol Hcl 1.25 Mg/3 Ml Vial.Neb) 1.25 mg INHALE RQ4H [facility] Last Admin: 02/14/24 11:07 Dose: 1.25 mg Documented By: FLAKITA Levothyroxine Sodium (Levothyroxine Sodium 50 Mcg Tablet) 50 mcg PO DAILY@0600 [facility] Last Admin: 02/14/24 05:30 Dose: 50 mcg Documented By: TANNER Melatonin (Melatonin 3 Mg Tablet) 6 mg PO BEDTIME PRN PRN Reason: Insomnia Last Admin: 02/13/24 19:41 Dose: 6 mg Documented By: TANNER Montelukast Sodium (Montelukast Sodium 10 Mg Tablet) 10 mg PO BEDTIME [facility] Last Admin: 02/13/24 19:41 Dose: 10 mg Documented By: TANNER Prednisone (Prednisone 20 Mg Tablet) 40 mg PO DAILY [facility] Last Admin: 02/14/24 08:15 Dose: 40 mg Documented By: GRETCHEN Sodium Chloride (0.9 % Sodium Chloride Flush 3 Ml Syringe) 3 ml IVFLUSH QSHIFT [facility] Last Admin: 02/14/24 08:18 Dose: 3 ml Documented By: GRETCHEN Labs 02/14/24 05:45 02/14/24 05:45 Labs: Laboratory Results - last 24 hr 02/13/24 02/13/24 02/14/24 16:09 20:21 00:19 MCV MCH MCHC RDW Plt Count MPV Absolute Nucleated RBC Nucleated RBC % (auto) Anion Gap Estim Creat Clear Calc Estimated GFR POC Glucose 356 H* 410 H* 343 H Random Glucose Calcium 02/14/24 02/14/24 02/14/24 05:45 07:20 11:39 MCV 90.1 MCH 29.6 MCHC 32.9 RDW 18.5 H Plt Count 156 L MPV 10.9 Absolute Nucleated RBC 0.000 Nucleated RBC % (auto) 0.0 Anion Gap 17 Estim Creat Clear Calc 32.2 Estimated GFR 27 POC Glucose 339 H 381 H* Random Glucose 395 H* Calcium 8.4 Microbiology Microbiology Results: Microbiology 02/13/24 Unknown Urine Culture - Preliminary Urine Catheterized - Straight Catheter No growth to date. 02/11/24 09:11 Blood Culture - Preliminary Blood - Venous No growth after 48 hours. 02/11/24 08:46 Blood Culture - Preliminary Blood - Venous No growth after 48 hours. 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 Pt will be admitted to the hospital for treatment and further evaluation of new onset AFib with RVR and acute COPD/asthma overlap syndrome exacerbation. New onset AFib with RVR Better controlled DC diltiazem drip down as tolerated PO Cardizem 360mg CD DC Digoxin Continue Eliquis Echocardiogram EF 65-70% Cardiology input appreciated Keep on telemetry Acute COPD/asthma overlap exacerbation Continue Nebs, cetirizine, benzonatate DC Solu-Medrol , start Prednisone O2 supplement if needed Monitor respiratory status Hyperglycemia 2/2 Insulin-dependent diabetes type 2 worsened by Steroid usage increase 10 units Humalog tid with meals + SSI Increase Lantus to 60 units bid diabetic diet Hypopthermia resolved, Likely secondary to fall at home Fall at home Imaging of head, C-spine, right knee negative PT evaluation Lactic acidosis Likely secondary to nebulizer usage, and fall at home no indication to continue antibiotics at this time, low PRocal Elevated BNP Has chronic lower leg edema and occasional ascites secondary to GRIMES Continue home Lasix Check echocardiogram Monitor fluid status Hx of DVT/PE Continue Eliquis HLD Continue statin Hypothyroidism Continue levothyroxine GRIMES Continue home furosemide, lactulose Mood disorder Continue mood stabilizers Full Code DVT Prophylaxis: On Eliquis Pt will require a hospitalization overnight for treatment of?COPD\Asthma exacerbation with significant wheezing and dyspnea. new onset AFib with RVR require need close monitoring cardiac function, as well as administration of breathing treatments and evaluation by PT. Quality Stroke Does the patient have a stroke diagnosis?: No VTE Prior VTE?: No VTE Risk Level:: Medical - moderate - high VTE Device Contraindication: Treatment Not Indicated VTE Drug Contraindication: N/A - Med Ordered
[2024-02-14] MEDS: Acetaminophen 325 MG TABLET 650 MG PO (14:52)
[2024-02-14 16:41] LABS: Glucose, Whole Blood 491 mg/dL (60-115)
[2024-02-14 20:21] LABS: Glucose, Whole Blood 392 mg/dL (60-115)
[2024-02-14] MEDS: Montelukast Sodium 10 MG TABLET PO (20:36)
[2024-02-14] MEDS: Atorvastatin Calcium 10 MG TABLET PO (20:36)
[2024-02-14 22:28] LABS: Glucose, Whole Blood 381 mg/dL (60-115)
--- NOTE | 2024-02-14 22:38 | PC.NURSE ---
bedtime POC 392 covered with 12 units per sliding scale, repeated POC at 2210 is 381, additional 10 units Lispro given at 2217 per order
[2024-02-15] VITALS (13 sets, daily range): BP systolic 121–155; BP diastolic 50–61; PULSE 64–88; RESP 17–20; TEMP 36–36.3; O2SAT 94–97
[2024-02-15] MEDS: levalbuterol HCL 1.25 MG/3 ML VIAL.NEB INHALE ×6 (03:30→23:11)
[2024-02-15] MEDS: Levothyroxine Sodium 50 MCG TABLET PO (05:31)
[2024-02-15 06:44] LABS: Anion Gap 16 (12-20); B Type Natriuretic Peptide 401 pg/mL (<100); Blood Urea Nitrogen 74 mg/dL (9-16); Calcium 8.5 mg/dL (8.4-10.2); Carbon Dioxide 21 mmol/L (22-29); Chloride 95 mmol/L (96-108); Creatinine Clr Calc Pharmacy 33.7; Estimated Glomerular Filt Rate 28; Glucose Random 163 mg/dL (60-115); Magnesium 2.6 mg/dL (1.6-2.6); Potassium 4.6 mmol/L (3.3-5.1); Sodium 127 mmol/L (135-145)
[2024-02-15 06:47] LABS: Hematocrit 34.8 % (37.0-47.0); Hemoglobin 11.9 g/dl (12.0-16.0); Mean Corpuscular HGB Conc 34.2 g/dl (31.0-35.0); Mean Corpuscular Hemoglobin 30.1 pg (27.0-33.0); Mean Corpuscular Volume 88.1 fL (80.0-98.0); Mean Platelet Volume 10.5 fL (9.4-12.3); Platelet Count 171 X10*3/uL (160-400); Red Blood Count 3.95 X10*6/uL (4.20-5.50); Red Cell Distribution Width 18.1 % (11.0-16.0); White Blood Count 14.7 X10*3/uL (4.8-10.8)
[2024-02-15 07:20] LABS: Glucose, Whole Blood 150 mg/dL (60-115)
[2024-02-15] MEDS: Docusate Sodium 100 MG CAPSULE PO ×2 (08:01→20:27)
[2024-02-15] MEDS: predniSONE 20 MG TABLET 40 MG PO (08:01)
[2024-02-15] MEDS: Apixaban 5 MG TABLET PO ×2 (08:01→20:27)
[2024-02-15] MEDS: dilTIAZem HCL CD 180 MG CAP.ER.24H 360 MG PO (08:01)
[2024-02-15] MEDS: Folic Acid 1 MG TABLET PO (08:01)
[2024-02-15] MEDS: Ferrous Sulfate 324 MG TABLET.DR PO (08:01)
[2024-02-15] MEDS: Insulin Lispro 100 UNIT/ML 3 ML VIAL SUBCUT ×4 (08:02→22:07)
[2024-02-15] MEDS: 0.9 % Sodium Chloride Flush 3 ML SYRINGE IVFLUSH ×2 (08:04→20:29)
[2024-02-15] MEDS: Lactulose 20 GM/30 ML SOLUTION PO ×2 (08:04→20:26)
[2024-02-15] MEDS: Insulin Glargine,Hum.rec.anlog 100 UNIT/ML 10 ML VIAL 60 UNIT SUBCUT ×2 (08:04→22:07)
[2024-02-15] MEDS: Insulin Lispro 100 UNIT/ML 3 ML VIAL 10 UNIT SUBCUT ×4 (08:04→22:07)
[2024-02-15] MEDS: 0.9 % Sodium Chloride 1,000 ML 75 ML IVCONT (08:05)
--- NOTE | 2024-02-15 08:32 | PM.CNNEP ---
History of Present Illness Reason for Consult Consult date: 02/15/24 Reason for consult: YORDAN Chief Complaint Chief complaint: New onset AFIB w/ RVR History of Present Illness Narrative: 73-year-old female with a h/o ?asthma/COPD overlap syndrome not on home O2, hx of PE on Eliquis, insulin-dependent type 2 diabetes, hypothyroidism, GERD, GRIMES, and mood disorder who presents to the ED after fall at home. Patient was recently admitted to the hospital from 02/06-02/07 and treated for moderate persistent asthma/COPD with acute decompensation. Was discharged home on 5-day taper of prednisone. After discharge patient reports still not feeling all that well, especially noted continue to have nonproductive cough and increased SOB above baseline. Reports using her inhalers with little relief. Early this morning patient reports waking up and going to the bathroom but does not remember anything else until waking up in the hospital. Patient lives with family who found her on the bathroom floor with an unknown length of downtime. EMS found patient's blood sugar of 46; was given D10 250 mL and DuoNeb for audible wheezing. In the ED patient was found to be in new onset AFib with RVR. Currently, pt complains persistent non productive cough, increased SOB, generalized weakness, and right knee pain. Baseline creatinine is 1.1 Gradual increase to 1.78 UA with some protein/RBC ans WBC Platelets normal Few episodes of hypotension She was on Lasix and Spironolactone 100 mg QD - currently on hold CT shows cirrhosis with ascites Review of Systems Constitutional: Denies fever(s) and Denies weight loss Cardiovascular: Denies chest pain Respiratory: Denies cough and Denies hemoptysis Gastrointestinal: Denies abdominal pain, Denies diarrhea and Denies nausea Musculoskeletal: Denies back pain Denies focal weakness [facility] Past Medical History Medical History Asthma Bacteremia Morbid (severe) obesity due to excess calories Asthma-COPD overlap syndrome Hypothyroidism Pulmonary embolism Depression Hyperlipidemia Rheumatoid arthritis Hypertension Diabetes mellitus, type 2 Social History Social History Household Members: Family Household Members Other:: sister and brother Housing: House Do you presently have visiting nurse or other home services: No (Meals on Wheels) Alcohol intake: never Patient Tobacco Use Status: Never used Tobacco Smoked in Last 30 Days: No Use of substances other than those prescribed or required for medical reasons: No Currently Displaying Signs/Symptoms of Drug Intoxication Withdrawal: No Have you been hit, kicked, punched, or otherwise hurt by someone within the past year? If so, by whom?: No Do you feel safe in your current relationship?: No Current Relationship Is there a partner from a previous relationship who is making you feel unsafe now?: No Are you made to feel afraid or neglected: No Advance Directives: Yes Advance Directives on File: Yes Advance Directives Date on File: 06/07/23 Do you have a plan to hurt others: No Plan Recently lost weight without trying: No Nutrition Risks: No Nutritional Risk Patient : No : No Poor oral hygiene: No service: No Current occupational status: disabled Meds Allergies Allergy/AdvReac Type Severity Reaction Status Date / Time rosuvastatin [From CRESTOR] Allergy Unknown Unknown Verified 02/11/24 05:05 empagliflozin Allergy Unknown Verified 02/11/24 05:05 [From Jardiance] piperacillin [From Zosyn] AdvReac Intermediate Vomiting Verified 02/11/24 05:05 tazobactam [From Zosyn] AdvReac Intermediate Vomiting Verified 02/11/24 05:05 Active Medications: Current Medications Acetaminophen (Acetaminophen 325 Mg Tablet) 650 mg PO Q6H PRN PRN Reason: Pain, Mild (Pain Scale 1-3) Last Admin: 02/14/24 14:52 Dose: 650 mg Albuterol Sulfate (Albuterol Sulfate 90 Mcg 8 Gm Inhaler) 2 puff INHALE Q4H PRN PRN Reason: Shortness Of Breath Or Wheezing Apixaban (Apixaban 5 Mg Tablet) 5 mg PO BID ON LICENSE OF [facility] Last Admin: 02/15/24 08:01 Dose: 5 mg Atorvastatin Calcium (Atorvastatin Calcium 10 Mg Tablet) 10 mg PO BEDTIME ON LICENSE OF [facility] Last Admin: 02/14/24 20:36 Dose: 10 mg Diltiazem HCl (Diltiazem Hcl Cd 180 Mg Cap.Er.24h) 360 mg PO DAILY ON LICENSE OF [facility]; Protocol Last Admin: 02/15/24 08:01 Dose: 360 mg Docusate Sodium (Docusate Sodium 100 Mg Capsule) 100 mg PO DAILY PRN PRN Reason: Constipation Docusate Sodium (Docusate Sodium 100 Mg Capsule) 100 mg PO BID ON LICENSE OF [facility] Last Admin: 02/15/24 08:01 Dose: 100 mg Ferrous Sulfate (Ferrous Sulfate 324 Mg Tablet.Dr) 324 mg PO DAILY ON LICENSE OF [facility] Last Admin: 02/15/24 08:01 Dose: 324 mg Fluticasone/Vilanterol (Fluticasone/Vilanterol 200/25 Blst.W.Dev) 1 puff INHALE RDAILY ON LICENSE OF [facility] Last Admin: 02/14/24 07:20 Dose: 1 puff Folic Acid (Folic Acid 1 Mg Tablet) 1 mg PO DAILY ON LICENSE OF [facility] Last Admin: 02/15/24 08:01 Dose: 1 mg Glucose (Glucose Gel 15 Gm Gel..Gram.) 15 gm PO Q15M PRN; Protocol PRN Reason: per Hypoglycemia Standing Ord. Dextrose (D10) 250 mls @ 750 mls/hr IV Q15M PRN; Protocol PRN Reason: per Hypoglycemia Standing Ord. Sodium Chloride (Ns) 1,000 mls @ 75 mls/hr IVCONT .[id number] ON LICENSE OF [facility] Last Admin: 02/15/24 08:05 Dose: 75 mls/hr Insulin Glargine (Insulin Glargine,Hum.Rec.Anlog 100 Unit/Ml 10 Ml Vial) 60 unit SUBCUT BID ON LICENSE OF [facility] Last Admin: 02/15/24 08:04 Dose: 60 unit Insulin Human Lispro (Insulin Lispro 100 Unit/Ml 3 Ml Vial) 0 unit SUBCUT QIDACHS ON LICENSE OF [facility]; Protocol Last Admin: 02/15/24 08:02 Dose: 2 unit Insulin Human Lispro (Insulin Lispro 100 Unit/Ml 3 Ml Vial) 10 unit SUBCUT QIDACHS ON LICENSE OF [facility] Last Admin: 02/15/24 08:04 Dose: 10 unit Ipratropium [place] (Ipratropium [place] 0.5 Mg/2.5 Ml Solution) 0.5 mg INHALE RQ4H WHILE AWAKE ON LICENSE OF [facility] Last Admin: 02/14/24 18:56 Dose: 0.5 mg Lactulose (Lactulose 20 Gm/30 Ml Solution) 20 gm PO BID ON LICENSE OF [facility] Last Admin: 02/15/24 08:04 Dose: 20 gm Levalbuterol HCl (Levalbuterol Hcl 1.25 Mg/3 Ml Vial.Neb) 1.25 mg INHALE Q4H PRN PRN Reason: Shortness of Breath/Wheezing Levalbuterol HCl (Levalbuterol Hcl 1.25 Mg/3 Ml Vial.Neb) 1.25 mg INHALE RQ4H ON LICENSE OF [facility] Last Admin: 02/15/24 03:30 Dose: 1.25 mg Levothyroxine Sodium (Levothyroxine Sodium 50 Mcg Tablet) 50 mcg PO DAILY@0600 ON LICENSE OF [facility] Last Admin: 02/15/24 05:31 Dose: 50 mcg Melatonin (Melatonin 3 Mg Tablet) 6 mg PO BEDTIME PRN PRN Reason: Insomnia Last Admin: 02/13/24 19:41 Dose: 6 mg Montelukast Sodium (Montelukast Sodium 10 Mg Tablet) 10 mg PO BEDTIME ON LICENSE OF [facility] Last Admin: 02/14/24 20:36 Dose: 10 mg Prednisone (Prednisone 20 Mg Tablet) 40 mg PO DAILY ON LICENSE OF [facility] Last Admin: 02/15/24 08:01 Dose: 40 mg Sodium Chloride (0.9 % Sodium Chloride Flush 3 Ml Syringe) 3 ml IVFLUSH QSHIFT ON LICENSE OF [facility] Last Admin: 02/15/24 08:04 Dose: 3 ml Home Medications ?Medication ?Instructions ?Recorded ?Confirmed ?Last Taken ?Type albuterol sulfate 90 mcg/actuation 2 puff inhalation Q4H PRN 01/20/23 02/11/24 01/19/23 History aerosol inhaler Shortness Of Breath Or Wheezing apixaban 5 mg tablet (Eliquis) 5 mg PO BID 01/20/23 02/11/24 11/22/23 History calcium carbonate 600 mg-vitamin 1 tab PO DAILY 01/20/23 02/11/24 11/22/23 History D3 5 mcg (200 unit) tablet citalopram 20 mg tablet 20 mg PO DAILY 01/20/23 02/11/24 11/22/23 History ferrous sulfate 325 mg (65 mg 325 mg PO DAILY 01/20/23 02/11/24 11/22/23 History iron) tablet levothyroxine 50 mcg tablet 50 mcg PO DAILY@0600 01/20/23 02/11/24 11/22/23 History montelukast 10 mg tablet 10 mg PO BEDTIME 01/20/23 02/11/24 11/21/23 History furosemide 20 mg tablet 20 mg PO DAILY 06/01/23 02/11/24 11/22/23 History insulin glargine 100 unit/mL (3 50 unit subcut BID 06/01/23 02/11/24 11/22/23 History mL) subcutaneous pen (Basaglar KwikPen U-100 Insulin) docusate sodium 100 mg capsule 100 mg PO BID PRN Constipation 07/20/23 02/11/24 11/22/23 History folic acid 1 mg tablet 1 mg PO DAILY 07/20/23 02/11/24 11/22/23 History adalimumab 40 mg/0.8 mL 40 mg subcut Q14D 11/22/23 02/11/24 01/26/24 History subcutaneous syringe kit (Humira) fluticasone 500 mcg-salmeterol 50 1 ea inhalation BID 11/22/23 02/11/24 11/22/23 History mcg/dose blistr powdr for inhalation (Wixela Inhub) insulin regular human 100 unit/mL 40 unit subcut TID 02/07/24 02/11/24 Unknown History (3 mL) subcutaneous pen (Novolin R FlexPen) lactulose 10 gram/15 mL oral 10 ml PO BID 02/07/24 02/11/24 Unknown History solution (Enulose) simvastatin 20 mg tablet 20 mg PO BEDTIME 02/07/24 02/11/24 Unknown History spironolactone 100 mg tablet 100 mg PO DAILY 02/07/24 02/11/24 Unknown History Physical Exam Vital Signs: Last Vital Signs Temp 97.1 F 02/15/24 07:10 Pulse 64 02/15/24 08:01 Resp 20 02/15/24 07:10 BP 121/51 L 02/15/24 08:01 Pulse Ox 94 02/15/24 07:10 O2 Del Method Room Air 02/15/24 07:10 O2 Flow Rate 94 02/12/24 11:12 BMI result Body Mass Index 40.8 Const General: ill appearing Neck Neck: Yes supple Resp Auscultation: rhonchi Cardio Palpation: no palpable S3 Heart sounds: no rubs GI Palpation (GI): Soft to palpation Auscultation: normal bowel sounds Neuro Motor exam (neuro): no asterixis Results Lab Results 02/15/24 05:57 02/15/24 05:57 Lab results: Chemistry 02/13/24 02/13/24 02/14/24 01:22 06:22 05:45 Sodium 133 L 134 L 130 L Potassium 4.8 4.8 4.7 Carbon Dioxide 22 23 22 BUN 47 H 49 H 63 H Creatinine 1.51 H 1.44 H 1.86 H Calcium 8.5 8.4 8.4 02/15/24 05:57 Sodium 127 L Potassium 4.6 Carbon Dioxide 21 L BUN 74 H Creatinine 1.78 H Calcium 8.5 Hematology 02/14/24 02/15/24 05:45 05:57 WBC 13.2 H 14.7 H Hgb 11.7 L 11.9 L Plt Count 156 L 171 Urinalysis 02/13/24 11:56 Urine Color Dark Yellow Urine Appearance Cloudy Urine pH 5.5 Ur Specific [place] 1.020 Urine Protein 30 (1+) H Urine Glucose (UA) 100 H Urine Ketones Trace Urine Blood Large (3+) H Urine Nitrite Negative Ur Leukocyte Esterase Trace H Urine RBC >20 H Urine WBC 6-10 H Ur Squamous Epith Cells 0-2 Hyaline Casts 0-2 Assessment and Plan (1) Atrial fibrillation with rapid ventricular response: Status: Acute (2) COPD with acute exacerbation: Status: Acute (3) YORDAN (acute kidney injury): Status: Acute (4) Hyponatremia: Status: Acute Plan 73 yr old woman with complicated medical history with COPD, Cirrhosis has developed YORDAN and hyponatremia DDX for YORDAN includes hypoperfusion from low BP; However, AGN and AiN need to be ruled out Obstruction seems unlikely Hyponatremia due to decrease free water clearance in a setting of cirrhosis /COPD and use of SSRI Suggest Check urine for Na/Cr/Protein /eosinophils Hold all diuretics Avoid hypotension Check ANCA/C3/C4/MPo/PR3/Anti GBM Watch urine output Restrict PO water intake to 1.2 L per 24 hrs Avoid hypotonic fluids Procedures Date of Service Date of Service: 02/15/24
[2024-02-15] MEDS: Fluticasone/Vilanterol 200/25 BLST.W.DEV 1 PUFF INHALE (08:45)
[2024-02-15] MEDS: Ipratropium Bromide 0.5 MG/2.5 ML SOLUTION INHALE ×4 (08:45→19:38)
[2024-02-15 10:21] LABS: Anion Gap 17 (12-20); Blood Urea Nitrogen 74 mg/dL (9-16); Calcium 8.8 mg/dL (8.4-10.2); Carbon Dioxide 21 mmol/L (22-29); Chloride 95 mmol/L (96-108); Creatinine Clr Calc Pharmacy 33.3; Estimated Glomerular Filt Rate 28; Glucose Random 171 mg/dL (60-115); Potassium 4.6 mmol/L (3.3-5.1); Sodium 128 mmol/L (135-145)
[2024-02-15 11:34] LABS: Glucose, Whole Blood 183 mg/dL (60-115)
[2024-02-15 11:44] LABS: Osmolality Urine 462 mosm/kg (373-1093)
[2024-02-15 12:05] LABS: Creatinine Urine 91.03 mg/dL; Sodium Urine Random < 20.0 mmol/L; Total Protein Urine Random < 7 mg/dL (<12)
--- NOTE | 2024-02-15 14:37 | P.CDIM_ITS ---
PROVIDER RESPONSE TEXT: To clarify, the appropriate diagnosis supported by the clinical indicators: Acute QUERY TEXT: PHYSICIAN'S DOCUMENTATION REQUEST Date of Query: 02/15/2024 09:13 AM EDT Patient Name: Jennifer Duran Admit Date: 02/11/2024 Dear Mae Perez, A review of the medical record indicates additional documentation may be needed. Please review below and update the documentation accordingly. Clinical Indicators: Progress notes within the Plan: Lactic acidosis Likely secondary to nebulizer usage, and fall at home. Clarify which of the following accurately represents the acuity of the Lactic acidosis: Acute Acute on chronic Other (explain) Clinically unable to determine (explain) Thank you, Kecia Ayala, CCS, CDIS Use of terms such as suspected, likely, concern for, or probable (associated with a specific diagnosi s that is being evaluated, monitored, or treated as if it exists) are acceptable and can be coded in the inpatient se tting, when documented at the time of discharge. Please use your independent medical judgment in providing your response. THIS QUERY IS PART OF THE PERMANENT MEDICAL RECORD
[2024-02-15 16:42] LABS: Glucose, Whole Blood 269 mg/dL (60-115)
--- NOTE | 2024-02-15 17:03 | P.PNIM_ITS ---
Subjective Subjective Date of Service: 02/15/24 Interval History: Seen and evaluated this morning less wheezy and dyspneic HR better controlled improved Glucose level Denies any chest pain Review of Systems Review of Systems: Yes all other systems are reviewed and are negative Physical Exam 2 Vital Signs: Vital Signs: Last Vital Signs Temp 97.3 F 02/15/24 15:15 Pulse 88 02/15/24 15:21 Resp 20 02/15/24 15:21 BP 129/59 L 02/15/24 15:15 Pulse Ox 94 02/15/24 11:16 O2 Del Method Room Air 02/15/24 15:15 O2 Flow Rate 94 02/12/24 11:12 BMI result Body Mass Index 40.8 Const: Other: Constitutional : Awake, interactive, not in distress Neck : Normal inspection, Supple Cardiovascular : irregular irregular , no JVP, trace lower extremity edema Respiratory : fair bilateral air entry, no crackles, bilateral wheezing at rest Gastrointestinal: soft, lax, Normal bowel sounds, Non tender Skin : Warm, Dry Neurological : Alert & oriented x3, No focal deficit Objective Data Active Medications Acetaminophen (Acetaminophen 325 Mg Tablet) 650 mg PO Q6H PRN PRN Reason: Pain, Mild (Pain Scale 1-3) Last Admin: 02/14/24 14:52 Dose: 650 mg Documented By: GRETCHEN Albuterol Sulfate (Albuterol Sulfate 90 Mcg 8 Gm Inhaler) 2 puff INHALE Q4H PRN PRN Reason: Shortness Of Breath Or Wheezing Apixaban (Apixaban 5 Mg Tablet) 5 mg PO BID [facility] Last Admin: 02/15/24 08:01 Dose: 5 mg Documented By: ALEX Atorvastatin Calcium (Atorvastatin Calcium 10 Mg Tablet) 10 mg PO BEDTIME [facility] Last Admin: 02/14/24 20:36 Dose: 10 mg Documented By: EVERETTE Diltiazem HCl (Diltiazem Hcl Cd 180 Mg Cap.Er.24h) 360 mg PO DAILY [facility]; Protocol Last Admin: 02/15/24 08:01 Dose: 360 mg Documented By: ALEX Docusate Sodium (Docusate Sodium 100 Mg Capsule) 100 mg PO DAILY PRN PRN Reason: Constipation Docusate Sodium (Docusate Sodium 100 Mg Capsule) 100 mg PO BID [facility] Last Admin: 02/15/24 08:01 Dose: 100 mg Documented By: ALEX Ferrous Sulfate (Ferrous Sulfate 324 Mg Tablet.Dr) 324 mg PO DAILY [facility] Last Admin: 02/15/24 08:01 Dose: 324 mg Documented By: ALEX Fluticasone/Vilanterol (Fluticasone/Vilanterol 200/25 Blst.W.Dev) 1 puff INHALE RDAILY [facility] Last Admin: 02/15/24 08:45 Dose: 1 puff Documented By: RENATA Folic Acid (Folic Acid 1 Mg Tablet) 1 mg PO DAILY [facility] Last Admin: 02/15/24 08:01 Dose: 1 mg Documented By: ALEX Glucose (Glucose Gel 15 Gm Gel..Gram.) 15 gm PO Q15M PRN; Protocol PRN Reason: per Hypoglycemia Standing Ord. Dextrose (D10) 250 mls @ 750 mls/hr IV Q15M PRN; Protocol PRN Reason: per Hypoglycemia Standing Ord. Sodium Chloride (Ns) 1,000 mls @ 75 mls/hr IVCONT .[id number] [facility] Last Admin: 02/15/24 08:05 Dose: 75 mls/hr Documented By: ALEX Insulin Glargine (Insulin Glargine,Hum.Rec.Anlog 100 Unit/Ml 10 Ml Vial) 60 unit SUBCUT BID [facility] Last Admin: 02/15/24 08:04 Dose: 60 unit Documented By: ALEX Insulin Human Lispro (Insulin Lispro 100 Unit/Ml 3 Ml Vial) 0 unit SUBCUT QIDACHS [facility]; Protocol Last Admin: 02/15/24 16:48 Dose: 8 unit Documented By: LUBA Insulin Human Lispro (Insulin Lispro 100 Unit/Ml 3 Ml Vial) 10 unit SUBCUT QIDACHS [facility] Last Admin: 02/15/24 16:47 Dose: 10 unit Documented By: LUBA Ipratropium [place] (Ipratropium [place] 0.5 Mg/2.5 Ml Solution) 0.5 mg INHALE RQ4H WHILE AWAKE [facility] Last Admin: 02/15/24 15:21 Dose: 0.5 mg Documented By: RENATA Lactulose (Lactulose 20 Gm/30 Ml Solution) 20 gm PO BID [facility] Last Admin: 02/15/24 08:04 Dose: 20 gm Documented By: ALEX Levalbuterol HCl (Levalbuterol Hcl 1.25 Mg/3 Ml Vial.Neb) 1.25 mg INHALE Q4H PRN PRN Reason: Shortness of Breath/Wheezing Levalbuterol HCl (Levalbuterol Hcl 1.25 Mg/3 Ml Vial.Neb) 1.25 mg INHALE RQ4H [facility] Last Admin: 02/15/24 15:21 Dose: 1.25 mg Documented By: RENATA Levothyroxine Sodium (Levothyroxine Sodium 50 Mcg Tablet) 50 mcg PO DAILY@0600 [facility] Last Admin: 02/15/24 05:31 Dose: 50 mcg Documented By: EVERETTE Melatonin (Melatonin 3 Mg Tablet) 6 mg PO BEDTIME PRN PRN Reason: Insomnia Last Admin: 02/13/24 19:41 Dose: 6 mg Documented By: TANNER Montelukast Sodium (Montelukast Sodium 10 Mg Tablet) 10 mg PO BEDTIME [facility] Last Admin: 02/14/24 20:36 Dose: 10 mg Documented By: EVERETTE Prednisone (Prednisone 20 Mg Tablet) 40 mg PO DAILY [facility] Last Admin: 02/15/24 08:01 Dose: 40 mg Documented By: AELX Sodium Chloride (0.9 % Sodium Chloride Flush 3 Ml Syringe) [facility] Last Admin: 02/15/24 16:30 Dose: Not Given Documented By: LUBA Non-Admin Reason: IV Running Labs 02/15/24 05:57 02/15/24 09:49 Labs: Laboratory Results - last 24 hr 02/14/24 02/14/24 02/15/24 20:15 22:24 05:57 MCV 88.1 MCH 30.1 MCHC 34.2 RDW 18.1 H Plt Count 171 MPV 10.5 Absolute Nucleated RBC 0.000 Nucleated RBC % (auto) 0.0 Anion Gap 16 Estim Creat Clear Calc 33.7 Estimated GFR 28 POC Glucose 392 H* 381 H* Random Glucose 163 H Calcium 8.5 Magnesium 2.6 B-Natriuretic Peptide 401 H Urine Osmolality U Random Total Protein Ur Random Sodium Urine Creatinine 02/15/24 02/15/24 02/15/24 07:09 09:49 10:37 MCV MCH MCHC RDW Plt Count MPV Absolute Nucleated RBC Nucleated RBC % (auto) Anion Gap 17 Estim Creat Clear Calc 33.3 Estimated GFR 28 POC Glucose 150 H Random Glucose 171 H Calcium 8.8 Magnesium B-Natriuretic Peptide Urine Osmolality 462 U Random Total Protein < 7 Ur Random Sodium < 20.0 Urine Creatinine 91.03 02/15/24 02/15/24 11:15 16:33 MCV MCH MCHC RDW Plt Count MPV Absolute Nucleated RBC Nucleated RBC % (auto) Anion Gap Estim Creat Clear Calc Estimated GFR POC Glucose 183 H 269 H Random Glucose Calcium Magnesium B-Natriuretic Peptide Urine Osmolality U Random Total Protein Ur Random Sodium Urine Creatinine Microbiology Microbiology Results: Microbiology 02/13/24 Unknown Urine Culture - Preliminary Urine Catheterized - Straight Catheter Culture in progress. Assessment and Plan (1) Hyponatremia: Status: Acute (2) YORDAN (acute kidney injury): Status: Acute (3) Atrial fibrillation with rapid ventricular response: Status: Acute (4) COPD with acute exacerbation: Status: Acute Plan Pt is a 73-year-old female with a PMH significant for?asthma/COPD overlap syndrome not on home O2, hx of PE on Eliquis, insulin-dependent type 2 diabetes, hypothyroidism, GERD, GRIMES, and mood disorder who presents to the ED after fall at home. Pt will be admitted to the hospital for treatment and further evaluation of new onset AFib with RVR and acute COPD/asthma overlap syndrome exacerbation. YORDAN on CKD 3 complicated by Acute hyponatremia Likely prerenal with dehydration 2/2 hyperglycemia and polyurea over the last 2 days Cr 1.8 from baseline of 1.1 Na of 128 better sugar control IVF hold nephrotoxic meds check urine electrolytes Nephrology consult, R\O AGN, AIN; check ANCA/C3/C4/MPo/PR3/Anti GBM water restriction to 1.2 New onset AFib with RVR Better controlled DC diltiazem drip down as tolerated DC Digoxin PO Cardizem 360mg CD Continue Eliquis Echocardiogram EF 65-70% Cardiology input appreciated Keep on telemetry Acute COPD/asthma overlap exacerbation improving Continue Nebs, cetirizine, benzonatate DC Solu-Medrol , start Prednisone O2 supplement if needed Monitor respiratory status Hyperglycemia 2/2 Insulin-dependent diabetes type 2 better controlled increase 10 units Humalog tid with meals + SSI Increase Lantus to 60 units bid (takes 50 bid home) diabetic diet Hypopthermia resolved, Likely secondary to fall at home Fall at home Imaging of head, C-spine, right knee negative PT evaluation Lactic acidosis Likely secondary to nebulizer usage, and fall at home no indication to continue antibiotics at this time, low PRocal Elevated BNP Has chronic lower leg edema and occasional ascites secondary to GRIMES Continue home Lasix Check echocardiogram Monitor fluid status Hx of DVT/PE Continue Eliquis HLD Continue statin Hypothyroidism Continue levothyroxine GRIMES Continue home furosemide, lactulose Mood disorder Continue mood stabilizers Full Code DVT Prophylaxis: On Eliquis Pt will require a hospitalization overnight for treatment of?COPD\Asthma exacerbation with significant wheezing and dyspnea. new onset AFib with RVR require need close monitoring cardiac function, as well as administration of breathing treatments and evaluation by PT. Quality Stroke Does the patient have a stroke diagnosis?: No VTE Prior VTE?: No VTE Risk Level:: Medical - moderate - high VTE Device Contraindication: Treatment Not Indicated VTE Drug Contraindication: N/A - Med Ordered
[2024-02-15 18:16] LABS: Anion Gap 17 (12-20); Blood Urea Nitrogen 75 mg/dL (9-16); Calcium 8.7 mg/dL (8.4-10.2); Carbon Dioxide 21 mmol/L (22-29); Chloride 93 mmol/L (96-108); Creatinine Clr Calc Pharmacy 30.3; Estimated Glomerular Filt Rate 25; Glucose Random 334 mg/dL (60-115); Sodium 126 mmol/L (135-145)
[2024-02-15] MEDS: Acetaminophen 325 MG TABLET 650 MG PO (20:26)
[2024-02-15] MEDS: Melatonin 3 MG TABLET 6 MG PO (20:26)
[2024-02-15] MEDS: Atorvastatin Calcium 10 MG TABLET PO (20:27)
[2024-02-15] MEDS: Montelukast Sodium 10 MG TABLET PO (20:27)
[2024-02-15 20:59] LABS: Glucose, Whole Blood 333 mg/dL (60-115)
[2024-02-16] VITALS (11 sets, daily range): BP systolic 131–189; BP diastolic 47–75; PULSE 76–96; RESP 16–24; TEMP 36.1–36.3; O2SAT 94–96
[2024-02-16 01:38] LABS: Anion Gap 15 (12-20); Blood Urea Nitrogen 79 mg/dL (9-16); Calcium 8.2 mg/dL (8.4-10.2); Carbon Dioxide 22 mmol/L (22-29); Chloride 93 mmol/L (96-108); Creatinine Clr Calc Pharmacy 28.8; Estimated Glomerular Filt Rate 23; Glucose Random 388 mg/dL (60-115); Potassium 4.9 mmol/L (3.3-5.1); Sodium 125 mmol/L (135-145)
[2024-02-16 03:21] LABS: Glucose, Whole Blood 305 mg/dL (60-115)
[2024-02-16] MEDS: Levothyroxine Sodium 50 MCG TABLET PO (05:39)
[2024-02-16] MEDS: levalbuterol HCL 1.25 MG/3 ML VIAL.NEB INHALE ×5 (07:29→23:48)
[2024-02-16] MEDS: Ipratropium Bromide 0.5 MG/2.5 ML SOLUTION INHALE ×4 (07:29→19:17)
[2024-02-16] MEDS: Fluticasone/Vilanterol 200/25 BLST.W.DEV 1 PUFF INHALE (07:29)
[2024-02-16 07:36] LABS: Glucose, Whole Blood 256 mg/dL (60-115)
[2024-02-16] MEDS: Lactulose 20 GM/30 ML SOLUTION PO ×2 (08:39→20:29)
[2024-02-16] MEDS: Insulin Lispro 100 UNIT/ML 3 ML VIAL SUBCUT ×4 (08:39→22:15)
[2024-02-16] MEDS: Insulin Glargine,Hum.rec.anlog 100 UNIT/ML 10 ML VIAL 60 UNIT SUBCUT ×2 (08:39→22:13)
[2024-02-16] MEDS: Insulin Lispro 100 UNIT/ML 3 ML VIAL 10 UNIT SUBCUT ×4 (08:39→22:15)
[2024-02-16] MEDS: dilTIAZem HCL CD 180 MG CAP.ER.24H 360 MG PO (08:40)
[2024-02-16] MEDS: Acetaminophen 325 MG TABLET 650 MG PO ×2 (08:40→20:28)
[2024-02-16] MEDS: Ferrous Sulfate 324 MG TABLET.DR PO (08:40)
[2024-02-16] MEDS: predniSONE 20 MG TABLET 40 MG PO (08:40)
[2024-02-16] MEDS: Folic Acid 1 MG TABLET PO (08:41)
[2024-02-16] MEDS: 0.9 % Sodium Chloride Flush 3 ML SYRINGE IVFLUSH ×3 (08:41→20:29)
[2024-02-16] MEDS: Docusate Sodium 100 MG CAPSULE PO ×2 (08:41→20:28)
[2024-02-16] MEDS: Apixaban 5 MG TABLET PO ×2 (08:41→20:28)
[2024-02-16 09:12] LABS: Hematocrit 34.7 % (37.0-47.0); Hemoglobin 11.5 g/dl (12.0-16.0); Mean Corpuscular HGB Conc 33.1 g/dl (31.0-35.0); Mean Corpuscular Volume 87.6 fL (80.0-98.0); Mean Platelet Volume 10.4 fL (9.4-12.3); NRBC Pct Auto 0.1 /100WBC (0.0-0.2); Platelet Count 181 X10*3/uL (160-400); Red Blood Count 3.96 X10*6/uL (4.20-5.50); Red Cell Distribution Width 18.2 % (11.0-16.0); White Blood Count 14.7 X10*3/uL (4.8-10.8)
[2024-02-16 09:25] LABS: Anion Gap 15 (12-20); Blood Urea Nitrogen 78 mg/dL (9-16); Calcium 8.7 mg/dL (8.4-10.2); Carbon Dioxide 23 mmol/L (22-29); Chloride 94 mmol/L (96-108); Creatinine Clr Calc Pharmacy 31.5; Estimated Glomerular Filt Rate 26; Glucose Random 243 mg/dL (60-115); Potassium 4.6 mmol/L (3.3-5.1); Sodium 127 mmol/L (135-145)
[2024-02-16 09:49] LABS: Osmolality, Serum 317 mosm/kg (281-305)
[2024-02-16] MEDS: 0.9 % Sodium Chloride 1,000 ML 100 ML IVCONT (10:11)
--- NOTE | 2024-02-16 11:11 | MHC.CM.PN ---
Pt is not yet medically cleared for DC, she has chosen to go [facility], anticipate DC on 02/17/24.
[2024-02-16 11:15] LABS: Glucose, Whole Blood 236 mg/dL (60-115)
[2024-02-16 12:25] LABS: Anion Gap 15 (12-20); Blood Urea Nitrogen 78 mg/dL (9-16); Calcium 8.8 mg/dL (8.4-10.2); Carbon Dioxide 24 mmol/L (22-29); Chloride 94 mmol/L (96-108); Estimated Glomerular Filt Rate 25; Glucose Random 242 mg/dL (60-115); Potassium 4.7 mmol/L (3.3-5.1); Sodium 128 mmol/L (135-145)
--- NOTE | 2024-02-16 12:31 | P.PNIM_ITS ---
Subjective Subjective Date of Service: 02/16/24 Interval History: still sob, weak Physical Exam 2 Vital Signs: Vital Signs: Last Vital Signs Temp 97.0 F 02/16/24 11:02 Pulse 82 02/16/24 12:27 Resp 20 02/16/24 12:27 BP 131/47 L 02/16/24 11:02 Pulse Ox 96 02/16/24 11:02 O2 Del Method Room Air 02/16/24 11:02 O2 Flow Rate 94 02/12/24 11:12 BMI result Body Mass Index 40.8 Const: Other: Constitutional : Awake, interactive, not in distress Neck : Normal inspection, Supple Cardiovascular : irregular irregular , no JVP, trace lower extremity edema Respiratory : fair bilateral air entry, no crackles, bilateral wheezing at rest Gastrointestinal: soft, lax, Normal bowel sounds, Non tender Skin : Warm, Dry Neurological : Alert & oriented x3, No focal deficit Objective Data Active Medications Acetaminophen (Acetaminophen 325 Mg Tablet) 650 mg PO Q6H PRN PRN Reason: Pain, Mild (Pain Scale 1-3) Last Admin: 02/16/24 08:40 Dose: 650 mg Documented By: ZOHAIB Albuterol Sulfate (Albuterol Sulfate 90 Mcg 8 Gm Inhaler) 2 puff INHALE Q4H PRN PRN Reason: Shortness Of Breath Or Wheezing Apixaban (Apixaban 5 Mg Tablet) 5 mg PO BID [facility] Last Admin: 02/16/24 08:41 Dose: 5 mg Documented By: ZOHAIB Atorvastatin Calcium (Atorvastatin Calcium 10 Mg Tablet) 10 mg PO BEDTIME [facility] Last Admin: 02/15/24 20:27 Dose: 10 mg Documented By: VINCENT Diltiazem HCl (Diltiazem Hcl Cd 180 Mg Cap.Er.24h) 360 mg PO DAILY [facility]; Protocol Last Admin: 02/16/24 08:40 Dose: 360 mg Documented By: ZOHAIB Docusate Sodium (Docusate Sodium 100 Mg Capsule) 100 mg PO DAILY PRN PRN Reason: Constipation Docusate Sodium (Docusate Sodium 100 Mg Capsule) 100 mg PO BID [facility] Last Admin: 02/16/24 08:41 Dose: 100 mg Documented By: ZOHAIB Ferrous Sulfate (Ferrous Sulfate 324 Mg Tablet.Dr) 324 mg PO DAILY [facility] Last Admin: 02/16/24 08:40 Dose: 324 mg Documented By: ZOHAIB Fluticasone/Vilanterol (Fluticasone/Vilanterol 200/25 Blst.W.Dev) 1 puff INHALE RDAILY [facility] Last Admin: 02/16/24 07:29 Dose: 1 puff Documented By: JAMILA Folic Acid (Folic Acid 1 Mg Tablet) 1 mg PO DAILY [facility] Last Admin: 02/16/24 08:41 Dose: 1 mg Documented By: ZOHAIB Glucose (Glucose Gel 15 Gm Gel..Gram.) 15 gm PO Q15M PRN; Protocol PRN Reason: per Hypoglycemia Standing Ord. Dextrose (D10) 250 mls @ 750 mls/hr IV Q15M PRN; Protocol PRN Reason: per Hypoglycemia Standing Ord. Sodium Chloride (Ns) 1,000 mls @ 100 mls/hr IVCONT .Q10H [facility] Stop: 02/16/24 19:44 Last Admin: 02/16/24 10:11 Dose: 100 mls/hr Documented By: ZOHAIB Insulin Glargine (Insulin Glargine,Hum.Rec.Anlog 100 Unit/Ml 10 Ml Vial) 60 unit SUBCUT BID [facility] Last Admin: 02/16/24 08:39 Dose: 60 unit Documented By: ZOHAIB Insulin Human Lispro (Insulin Lispro 100 Unit/Ml 3 Ml Vial) 0 unit SUBCUT QIDACHS [facility]; Protocol Last Admin: 02/16/24 12:25 Dose: 6 unit Documented By: ZOHAIB Insulin Human Lispro (Insulin Lispro 100 Unit/Ml 3 Ml Vial) 10 unit SUBCUT QIDACHS [facility] Last Admin: 02/16/24 12:26 Dose: 10 unit Documented By: ZOHAIB Ipratropium [place] (Ipratropium [place] 0.5 Mg/2.5 Ml Solution) 0.5 mg INHALE RQ4H WHILE AWAKE [facility] Last Admin: 02/16/24 12:27 Dose: 0.5 mg Documented By: RENATA Lactulose (Lactulose 20 Gm/30 Ml Solution) 20 gm PO BID [facility] Last Admin: 02/16/24 08:39 Dose: 20 gm Documented By: ZOHAIB Levalbuterol HCl (Levalbuterol Hcl 1.25 Mg/3 Ml Vial.Neb) 1.25 mg INHALE Q4H PRN PRN Reason: Shortness of Breath/Wheezing Levalbuterol HCl (Levalbuterol Hcl 1.25 Mg/3 Ml Vial.Neb) 1.25 mg INHALE RQ4H [facility] Last Admin: 02/16/24 12:27 Dose: 1.25 mg Documented By: RENATA Levothyroxine Sodium (Levothyroxine Sodium 50 Mcg Tablet) 50 mcg PO DAILY@0600 [facility] Last Admin: 02/16/24 05:39 Dose: 50 mcg Documented By: VINCENT Melatonin (Melatonin 3 Mg Tablet) 6 mg PO BEDTIME PRN PRN Reason: Insomnia Last Admin: 02/15/24 20:26 Dose: 6 mg Documented By: VINCENT Montelukast Sodium (Montelukast Sodium 10 Mg Tablet) 10 mg PO BEDTIME [facility] Last Admin: 02/15/24 20:27 Dose: 10 mg Documented By: VINCENT Prednisone (Prednisone 20 Mg Tablet) 40 mg PO DAILY [facility] Last Admin: 02/16/24 08:40 Dose: 40 mg Documented By: ZOHAIB Sodium Chloride (0.9 % Sodium Chloride Flush 3 Ml Syringe) 3 ml IVFLUSH QSHIFT [facility] Last Admin: 02/16/24 08:41 Dose: 3 ml Documented By: ZOHAIB Labs 02/16/24 08:11 02/16/24 12:03 Labs: Laboratory Results - last 24 hr 02/15/24 02/15/24 02/15/24 16:33 17:47 20:51 MCV MCH MCHC RDW Plt Count MPV Absolute Nucleated RBC Nucleated RBC % (auto) Anion Gap 17 Estim Creat Clear Calc 30.3 Estimated GFR 25 POC Glucose 269 H 333 H Random Glucose 334 H Osmolality Calcium 8.7 02/16/24 02/16/24 02/16/24 01:04 03:11 07:20 MCV MCH MCHC RDW Plt Count MPV Absolute Nucleated RBC Nucleated RBC % (auto) Anion Gap 15 Estim Creat Clear Calc 28.8 Estimated GFR 23 POC Glucose 305 H 256 H Random Glucose 388 H* Osmolality Calcium 8.2 L 02/16/24 02/16/24 02/16/24 08:11 11:04 12:03 MCV 87.6 MCH 29.0 MCHC 33.1 RDW 18.2 H Plt Count 181 MPV 10.4 Absolute Nucleated RBC 0.020 H Nucleated RBC % (auto) 0.1 Anion Gap 15 15 Estim Creat Clear Calc 31.5 31.0 Estimated GFR 26 25 POC Glucose 236 H Random Glucose 243 H 242 H Osmolality 317 H Calcium 8.7 D 8.8 Microbiology Microbiology Results: Microbiology 02/11/24 09:11 Blood Culture - Final Blood - Venous No growth after 5 days. 02/11/24 08:46 Blood Culture - Final Blood - Venous No growth after 5 days. 02/13/24 Unknown Urine Culture - Final Urine Catheterized - Straight Catheter Corynebacterium species Assessment and Plan (1) Hyponatremia: Status: Acute (2) YORDAN (acute kidney injury): Status: Acute (3) Atrial fibrillation with rapid ventricular response: Status: Acute (4) COPD with acute exacerbation: Status: Acute Plan 73F PMH moderate persistent asthma/COPD overlap syndrome not on home O2, hx of PE on Eliquis, insulin-dependent type 2 diabetes, hypothyroidism, GERD, GRIMES, and mood disorder who presented with sob and fall, found to have new afib with rvr, YORDAN on CKD III YORDAN on CKD 3 complicated by Acute hyponatremia Likely prerenal with dehydration 2/2 hyperglycemia and polyurea over the last 2 days Na of 128 better sugar control iv ns hold nephrotoxic meds Nephrology consult, R\O AGN, AIN; check ANCA/C3/C4/MPo/PR3/Anti GBM water restriction to 1.2 New onset AFib with RVR Better controlled PO Cardizem 360mg CD Continue Eliquis Echocardiogram EF 65-70% Cardiology input appreciated Keep on telemetry Acute COPD/ moderate persistent asthma overlap exacerbation improving Continue Nebs, cetirizine, benzonatate Prednisone O2 supplement if needed Monitor respiratory status Hyperglycemia 2/2 Insulin-dependent diabetes type 2 better controlled increase 10 units Humalog tid with meals + SSI Increase Lantus to 60 units bid (takes 50 bid home) diabetic diet Hypopthermia resolved, Likely secondary to fall at home Fall at home Imaging of head, C-spine, right knee negative PT recommending str Hx of DVT/PE Continue Eliquis HLD Continue statin Hypothyroidism Continue levothyroxine GRIMES cirrhosis Continue lactulose Full Code DVT Prophylaxis: On Eliquis reason for continued hospitalization: hyponatremia Quality Stroke Does the patient have a stroke diagnosis?: No VTE Prior VTE?: No VTE Risk Level:: Medical - moderate - high VTE Device Contraindication: Treatment Not Indicated VTE Drug Contraindication: N/A - Med Ordered
[2024-02-16 16:51] LABS: Glucose, Whole Blood 220 mg/dL (60-115)
[2024-02-16 16:51] LABS: Glucose, Whole Blood 221 mg/dL (60-115)
[2024-02-16] MEDS: Melatonin 3 MG TABLET 6 MG PO (20:27)
[2024-02-16] MEDS: Montelukast Sodium 10 MG TABLET PO (20:28)
[2024-02-16] MEDS: Atorvastatin Calcium 10 MG TABLET PO (20:28)
--- NOTE | 2024-02-16 20:41 | P.PNNP_ITS ---
Subjective Subjective Date of Service: 02/16/24 Interval history: Events noted ; still sob, weak; All recent data reviewed Physical Exam 2 Vital Signs: Vital Signs: Last Vital Signs Temp 97.4 F 02/16/24 19:45 Pulse 94 02/16/24 19:45 Resp 24 H 02/16/24 19:45 BP 139/62 02/16/24 19:45 Pulse Ox 95 02/16/24 19:45 O2 Del Method Room Air 02/16/24 19:45 O2 Flow Rate 94 02/12/24 11:12 BMI result Body Mass Index 40.8 Const: General: comfortable and no acute distress HEENT: Head: Yes normocephalic Mouth: Normal oral and palatal mucosa present Eyes: EOM: EOMs intact bilaterally Neck: Neck: Yes supple Resp: Auscultation: wheezes and diminished lung sounds Cardio: Jugular venous distension: no JVD Rate: regular rate Heart sounds: Murmur heart sound present GI: Palpation (GI): Soft to palpation Auscultation: normal bowel sounds : General: Yes no CVA tenderness Back/Spine/Pelvis: Back: no CVA tenderness Skin: General skin exam: no rashes or lesions noted Neuro: General: moves all extremities Extrem: General: Yes no pedal edema Objective Data Labs 02/16/24 08:11 02/16/24 12:03 Labs: Laboratory Results - last 24 hr 02/15/24 02/16/24 02/16/24 20:51 01:04 03:11 WBC RBC Hgb Hct MCV MCH MCHC RDW Plt Count MPV Absolute Nucleated RBC Nucleated RBC % (auto) Sodium 125 L Potassium 4.9 Chloride 93 L Carbon Dioxide 22 Anion Gap 15 BUN 79 H Creatinine 2.08 H Estim Creat Clear Calc 28.8 Estimated GFR 23 POC Glucose 333 H 305 H Random Glucose 388 H* Osmolality Calcium 8.2 L 02/16/24 02/16/24 02/16/24 07:20 08:11 11:04 WBC 14.7 H RBC 3.96 L Hgb 11.5 L Hct 34.7 L MCV 87.6 MCH 29.0 MCHC 33.1 RDW 18.2 H Plt Count 181 MPV 10.4 Absolute Nucleated RBC 0.020 H Nucleated RBC % (auto) 0.1 Sodium 127 L Potassium 4.6 Chloride 94 L Carbon Dioxide 23 Anion Gap 15 BUN 78 H Creatinine 1.90 H Estim Creat Clear Calc 31.5 Estimated GFR 26 POC Glucose 256 H 236 H Random Glucose 243 H Osmolality 317 H Calcium 8.7 D 02/16/24 02/16/24 02/16/24 12:03 16:24 16:46 WBC RBC Hgb Hct MCV MCH MCHC RDW Plt Count MPV Absolute Nucleated RBC Nucleated RBC % (auto) Sodium 128 L Potassium 4.7 Chloride 94 L Carbon Dioxide 24 Anion Gap 15 BUN 78 H Creatinine 1.93 H Estim Creat Clear Calc 31.0 Estimated GFR 25 POC Glucose 221 H 220 H Random Glucose 242 H Osmolality Calcium 8.8 Microbiology Microbiology Results: Microbiology 02/11/24 09:11 Blood - Venous Blood Culture - Final No growth after 5 days. 02/11/24 08:46 Blood - Venous Blood Culture - Final No growth after 5 days. 02/13/24 Unknown Urine Catheterized - Straight Catheter Urine Culture - Final Corynebacterium species Procedures Date of Service Date of Service: 02/16/24 Assessment & Plan Assessment and plan (1) YORDAN (acute kidney injury): Status: Acute Plan YORDAN likely due to tubular injury Serum creatinine stable Work up in progress Continue current supportive care for now No indication for renal replacement Labs AM. Shall closely follow up Progress Note: Quality Stroke Does the patient have a stroke diagnosis?: No
[2024-02-16 21:27] LABS: Glucose, Whole Blood 181 mg/dL (60-115)
[2024-02-17] VITALS: BP 140/63; PULSE 83; RESP 20; TEMP 36.2; O2SAT 95
[2024-02-17 04:00] VITALS: BP 137/65; PULSE 85; RESP 97; TEMP 36.6; O2SAT 94
[2024-02-17 06:00] VITALS: BMI 44.0
[2024-02-17 06:03] LABS: Hematocrit 34.8 % (37.0-47.0); Hemoglobin 11.7 g/dl (12.0-16.0); Mean Corpuscular HGB Conc 33.6 g/dl (31.0-35.0); Mean Corpuscular Hemoglobin 29.4 pg (27.0-33.0); Mean Corpuscular Volume 87.4 fL (80.0-98.0); Platelet Count 158 X10*3/uL (160-400); Red Blood Count 3.98 X10*6/uL (4.20-5.50); Red Cell Distribution Width 18.2 % (11.0-16.0)
[2024-02-17 06:15] LABS: Anion Gap 14 (12-20); Blood Urea Nitrogen 76 mg/dL (9-16); Calcium 8.7 mg/dL (8.4-10.2); Carbon Dioxide 23 mmol/L (22-29); Chloride 98 mmol/L (96-108); Creatinine Clr Calc Pharmacy 35.1; Estimated Glomerular Filt Rate 29; Glucose Fasting 110 mg/dL (60-99); Potassium 4.8 mmol/L (3.3-5.1); Sodium 130 mmol/L (135-145)
[2024-02-17] MEDS: Levothyroxine Sodium 50 MCG TABLET PO (06:37)
[2024-02-17 07:41] VITALS: PULSE 84; RESP 18; O2SAT 96
[2024-02-17] MEDS: levalbuterol HCL 1.25 MG/3 ML VIAL.NEB INHALE ×2 (07:41→11:44)
[2024-02-17] MEDS: Fluticasone/Vilanterol 200/25 BLST.W.DEV 1 PUFF INHALE (07:41)
[2024-02-17] MEDS: Ipratropium Bromide 0.5 MG/2.5 ML SOLUTION INHALE ×2 (07:41→11:44)
[2024-02-17 08:00] VITALS: BP 162/56; PULSE 89; RESP 20; TEMP 35.6; O2SAT 95
[2024-02-17 08:03] LABS: Glucose, Whole Blood 127 mg/dL (60-115)
[2024-02-17] MEDS: dilTIAZem HCL CD 180 MG CAP.ER.24H 360 MG PO (08:10)
[2024-02-17] MEDS: Docusate Sodium 100 MG CAPSULE PO (08:11)
[2024-02-17] MEDS: Apixaban 5 MG TABLET PO (08:11)
[2024-02-17] MEDS: predniSONE 20 MG TABLET 40 MG PO (08:11)
[2024-02-17] MEDS: Folic Acid 1 MG TABLET PO (08:11)
[2024-02-17] MEDS: Ferrous Sulfate 324 MG TABLET.DR PO (08:11)
[2024-02-17] MEDS: Insulin Glargine,Hum.rec.anlog 100 UNIT/ML 10 ML VIAL 60 UNIT SUBCUT (08:13)
[2024-02-17] MEDS: Insulin Lispro 100 UNIT/ML 3 ML VIAL 10 UNIT SUBCUT ×2 (08:13→12:34)
[2024-02-17] MEDS: Lactulose 20 GM/30 ML SOLUTION PO (08:13)
[2024-02-17] MEDS: 0.9 % Sodium Chloride Flush 3 ML SYRINGE IVFLUSH (08:14)
[2024-02-17] MEDS: Insulin Lispro 100 UNIT/ML 3 ML VIAL SUBCUT ×2 (08:14→12:34)
--- NOTE | 2024-02-17 10:22 | MHC.CM.PN ---
IMM 02/17/24, PT MEDICAL CLEARED FOR DC TO STR AT [facility] AT 12:30PM.
--- NOTE | 2024-02-17 10:47 | PM.DS ---
DS: Providers Provider Date of Service: 02/17/24 Date of admission: 02/11/24 12:02 Primary care physician: Aydin Leo MD Consults: 02/11/24 12:07 Consult to Cardiology Routine [place]ing [place] [facility] [place] [facility] Reason for consultation: New onset AFib w/RVR 02/15/24 07:33 Consult to Nephrology Routine Consulting Provider: [facility] [place] [facility] Reason for consultation: YORDAN, Hypo natremia DS: Diagnosis Discharge Diagnosis (1) YORDAN (acute kidney injury): Status: Acute DS: Summary Hospital Course Hospital Course: from initial hpi: 73-year-old female with a PMH significant for?asthma/COPD overlap syndrome not on home O2, hx of PE on Eliquis, insulin-dependent type 2 diabetes, hypothyroidism, GERD, GRIMES, and mood disorder who presents to the ED after fall at home. Patient was recently admitted to the hospital from 02/06-02/07 and treated for moderate persistent asthma/COPD with acute decompensation. Was discharged home on 5-day taper of prednisone. After discharge patient reports still not feeling all that well, especially noted continue to have nonproductive cough and increased SOB above baseline. Reports using her inhalers with little relief. Early this morning patient reports waking up and going to the bathroom but does not remember anything else until waking up in the hospital. Patient lives with family who found her on the bathroom floor with an unknown length of downtime. EMS found patient's blood sugar of 46; was given D10 250 mL and DuoNeb for audible wheezing. In the ED patient was found to be in new onset AFib with RVR. Currently, pt complains persistent non productive cough, increased SOB, generalized weakness, and right knee pain. Denies any chest pain/pressure, or palpitations. No fever, chills, N/V/D, or abdominal pain. Denies lightheadedness dizziness. Patient denies previous history of atrial fibrillation. Reports she has been eating and drinking normally at home. In the ED pt was hypothermic as low as 93.4, tachycardic up to 138, tachypneic up to 24, and mostly normotensive. Labs were significant for lactic acid 2.6, AST 113, ALT 59, alk-phos 138, initial troponin 29.0 with repeat 31.1, and BNP 313. UA negative for UTI. CXR showed improved left basilar aeration compared to prior though with slight residual opacity, and small left pleural effusion. CT of right knee found no acute findings. CT of head and cervical spine negative for acute intracranial findings or acute fracture or dislocation. EKG demonstrated atrial fibrillation without significant ST elevations or depressions. Pt was treated with DuoNebs, hydrocortisone, ceftriaxone, acetaminophen, furosemide, IVF, and diltiazem 10 mg IV. Pt will be admitted to the hospital for treatment further evaluation of new onset AFib with RVR. hospital course: patient was admitted for YORDAN on CKD III complicated by acute hyponatremia. Diuretics were held, was given IV normal saline, put on fluid restriction. Creatinine improved to 1.7. Sodium improved to 130. Patient will be discharged to detention facility to continue fluid restriction 1.5 L per day and continue to hold diuretics. Also noted to have new onset atrial fibrillation with rapid ventricular response. Was put on diltiazem 360 mg daily, continued on Eliquis. Heart rate improved. For diabetes with hyperglycemia was continued on basal bolus insulin. Hypothermia was not due to sepsis, resolved. For history of DVT/PE was continued on Eliquis. For hypothyroid was continued on Synthroid. For GRIMES cirrhosis was continue lactulose. Patient will be discharged to detention facility. Time Attestation Discharge Coordination Time (in mins): 35 Quality: Safe Use of Opioids Does Pt have an Active Cancer Diagnosis on the Problem List?: No Quality: Stroke Does the patient have a stroke diagnosis?: No Physical Exam Vital Signs: Vital Signs: Last Vital Signs Temp 96.1 F L 02/17/24 08:00 Pulse 89 02/17/24 08:00 Resp 20 02/17/24 08:00 BP 162/56 H 02/17/24 08:00 Pulse Ox 95 02/17/24 08:00 O2 Del Method Room Air 02/17/24 08:00 O2 Flow Rate 94 02/12/24 11:12 BMI result Body Mass Index 44.0 Const: General: comfortable and no acute distress HEENT: Head: Yes normocephalic Mouth: Normal oral and palatal mucosa present Eyes: EOM: EOMs intact bilaterally Neck: Neck: Yes supple Resp: Auscultation: wheezes and diminished lung sounds Cardio: Jugular venous distension: no JVD Rate: regular rate Heart sounds: Murmur heart sound present GI: Palpation (GI): Soft to palpation Auscultation: normal bowel sounds : General: Yes no CVA tenderness Back/Spine/Pelvis: Back: no CVA tenderness Skin: General skin exam: no rashes or lesions noted Neuro: General: moves all extremities Extrem: General: Yes no pedal edema DS: Data Data Completed and Pending Completed studies during hospitalization [Text1]: Procedures Insertion of Infusion Device into Superior Vena Cava, Percutaneous Approach (06/01/23) Ultrasonography of Superior Vena Cava, Guidance (06/01/23) Labs on day of discharge: Laboratory Results - last 24 hr 02/16/24 02/16/24 02/16/24 11:04 12:03 16:24 WBC RBC Hgb Hct MCV MCH MCHC RDW Plt Count MPV Absolute Nucleated RBC Nucleated RBC % (auto) Sodium 128 L Potassium 4.7 Chloride 94 L Carbon Dioxide 24 Anion Gap 15 BUN 78 H Creatinine 1.93 H Estim Creat Clear Calc 31.0 Estimated GFR 25 POC Glucose 236 H 221 H Random Glucose 242 H Fasting Glucose Calcium 8.8 02/16/24 02/16/24 02/17/24 16:46 21:16 05:51 WBC 11.0 H RBC 3.98 L Hgb 11.7 L Hct 34.8 L MCV 87.4 MCH 29.4 MCHC 33.6 RDW 18.2 H Plt Count 158 L MPV 11.0 Absolute Nucleated RBC 0.000 Nucleated RBC % (auto) 0.0 Sodium 130 L Potassium 4.8 Chloride 98 Carbon Dioxide 23 Anion Gap 14 BUN 76 H Creatinine 1.71 H Estim Creat Clear Calc 35.1 Estimated GFR 29 POC Glucose 220 H 181 H Random Glucose Fasting Glucose 110 H Calcium 8.7 02/17/24 07:59 WBC RBC Hgb Hct MCV MCH MCHC RDW Plt Count MPV Absolute Nucleated RBC Nucleated RBC % (auto) Sodium Potassium Chloride Carbon Dioxide Anion Gap BUN Creatinine Estim Creat Clear Calc Estimated GFR POC Glucose 127 H Random Glucose Fasting Glucose Calcium Discharge Plan Discharge Anticipated Discharge Date/Time: 02/17/24 10:34 Patient Disposition: er [facility] Discharge Diagnosis: afib, hyponatremia Referrals: [facility] [Outside] - 1 Day (SHORT TERM REHAB) Aydin Leo MD [Primary Care Provider] - 1 Week Discharge Medications: New levalbuterol HCl 1.25 mg/3 mL Solution For Nebulization 1.25 mg inhalation Q4H PRN (Reason: Shortness Of Breath/Wheezing) Qty: 0 0RF diltiazem HCl [Cardizem CD] 180 mg Capsule,Extended Release 24hr 360 mg PO DAILY Qty: 0 0RF Protocol: Hold for SBP/HR < HOLD for SBP < : 90 HOLD for HR < : 60 Continued levothyroxine 50 mcg tablet 50 mcg PO DAILY@0600 montelukast 10 mg tablet 10 mg PO BEDTIME Eliquis 5 mg tablet 5 mg PO BID albuterol sulfate 90 mcg/actuation HFA aerosol inhaler 2 puff INHALATION Q4H PRN (Reason: Shortness Of Breath Or Wheezing) citalopram 20 mg tablet 20 mg PO DAILY calcium carbonate-vitamin D3 600 mg-5 mcg (200 unit) Tablet 1 tab PO DAILY ferrous sulfate 325 mg (65 mg iron) Tablet 325 mg PO DAILY fluticasone propion-salmeterol [Wixela Inhub] 500-50 mcg/dose blister with device 1 ea inhalation BID Humira 40 mg/0.8 mL syringe kit 40 mg subcut Q14D Novolin R FlexPen 100 unit/mL (3 mL) insulin pen 40 unit subcut TID lactulose [Enulose] 10 gram/15 mL solution 10 ml PO BID simvastatin 20 mg tablet 20 mg PO BEDTIME prednisone 20 mg tablet 40 mg PO DAILY Qty: 10 0RF insulin glargine [Basaglar KwikPen U-100 Insulin] 100 unit/mL (3 mL) insulin pen 50 unit subcut BID docusate sodium 100 mg Capsule 100 mg PO BID PRN (Reason: Constipation) folic acid 1 mg tablet 1 mg PO DAILY Discontinued spironolactone 100 mg tablet 100 mg PO DAILY furosemide 20 mg tablet 20 mg PO DAILY Discharge Orders: Discharge Order (Routine); Ordered 02/17/24 Ordered By: Suhas Hayward Diet: fluid restrict 1.5L Activity on Discharge: As tolerated Stand Alone Forms: Patient Portal Discharge page Print Language: Ghanaian Care Plan Goals: recovery Health Concerns: hyponatremia, afib Plan of Treatment: fluid restrict, hold diuretics, cardizem Assessment: see above
[2024-02-17 11:09] LABS: Glucose, Whole Blood 123 mg/dL (60-115)
[2024-02-17 11:45] VITALS: PULSE 89; RESP 18; O2SAT 95
[2024-02-17 12:00] VITALS: BP 166/62; PULSE 77; RESP 20; TEMP 35.8; O2SAT 97
[2024-02-17 21:38] LABS: Anti Glomerular Basement Memb <1.0 AI; Myeloperoxidase Antibody <1.0 AI; Proteinase 3 PR3 Antibodies <1.0 AI
== END 2024-02-17 13:01 | disposition skilled nursing facility (03) | DRG 638 ==
LOC: HO.ED 09:40 → HO.EDOVER 12:16 → HO.IMC 15:01
PROVIDERS: Internal Medicine; Internal Medicine Hypertension Specialist; Student in an Organized Health Care Education/Training Program; Admitting Provider Student in an Organized Health Care Education/Training Program; Emergency Provider Emergency Medicine; PCP Internal Medicine; Visit Provider Internal Medicine
DX: E11.649 Type 2 diabetes mellitus with hypoglycemia without coma (principal); E87.21 Acute metabolic acidosis; J44.1 Chronic obstructive pulmonary disease with (acute) exacerbation; J45.901 Unspecified asthma with (acute) exacerbation; R68.0 Hypothermia, not associated with low environmental temperature; E78.5 Hyperlipidemia, unspecified; E11.65 Type 2 diabetes mellitus with hyperglycemia; F39 Unspecified mood [affective] disorder; E03.9 Hypothyroidism, unspecified; E11.22 Type 2 diabetes mellitus with diabetic chronic kidney disease; K74.69 Other cirrhosis of liver; K75.81 Nonalcoholic steatohepatitis (NASH); I48.91 Unspecified atrial fibrillation; K21.9 Gastro-esophageal reflux disease without esophagitis; N17.9 Acute kidney failure, unspecified; M06.9 Rheumatoid arthritis, unspecified; N18.30 Chronic kidney disease, stage 3 unspecified; Z86.711 Personal history of pulmonary embolism; Z79.4 Long term (current) use of insulin; Z79.01 Long term (current) use of anticoagulants; Z79.52 Long term (current) use of systemic steroids; Z79.890 Hormone replacement therapy; Z79.899 Other long term (current) drug therapy
CPT/HCPCS: 36415; 70450; 71045; 72125; 73560; 80048; 80053; 80162; 81001; 82140; 82550; 82570; 82803; 82947; 83520; 83605; 83735; 83880; 83930; 83935; 84145; 84156; 84300; 84443; 84484; 85025; 85027; 86021; 87040; 87086; 93005; 93306; 94640; 96376; 97162; 99221; 99285; C1758; J0696; J1720; J1940; J2919

== ENCOUNTER → 2024-02-11 05:24 | Outpatient (BNV) | payer MEDICARE, SELFPAY | PROVIDERS: Admitting Provider Student in an Organized Health Care Education/Training Program; Emergency Provider Emergency Medicine; Visit Provider Internal Medicine | DX: I48.91 Unspecified atrial fibrillation (principal); I35.0 Nonrheumatic aortic (valve) stenosis; I34.81 Nonrheumatic mitral (valve) annulus calcification | CPT/HCPCS: 93010; 93306 ==

== ENCOUNTER → 2024-02-11 12:02 | Outpatient (BNV) | payer MEDICARE, SELFPAY | PROVIDERS: Admitting Provider Student in an Organized Health Care Education/Training Program; Emergency Provider Emergency Medicine; PCP Internal Medicine; Visit Provider Internal Medicine Hypertension Specialist | DX: I48.91 Unspecified atrial fibrillation (principal); J44.1 Chronic obstructive pulmonary disease with (acute) exacerbation; N17.9 Acute kidney failure, unspecified; E87.1 Hypo-osmolality and hyponatremia | CPT/HCPCS: 99223; 99232 ==

== ENCOUNTER → 2024-02-11 12:02 | Outpatient (BNV) | payer MEDICARE, SELFPAY | PROVIDERS: Admitting Provider Student in an Organized Health Care Education/Training Program; Emergency Provider Emergency Medicine; Visit Provider Internal Medicine | DX: I48.91 Unspecified atrial fibrillation (principal); J44.1 Chronic obstructive pulmonary disease with (acute) exacerbation; T68.XXXA Hypothermia, initial encounter | CPT/HCPCS: 99223; 99233 ==

== ENCOUNTER → 2024-02-11 12:02 | Outpatient (BNV) | payer MEDICARE, SELFPAY | PROVIDERS: Admitting Provider Student in an Organized Health Care Education/Training Program; Emergency Provider Emergency Medicine; Visit Provider Student in an Organized Health Care Education/Training Program | DX: N17.9 Acute kidney failure, unspecified (principal); N18.30 Chronic kidney disease, stage 3 unspecified | CPT/HCPCS: 99223; 99232; 99233; 99239 ==

== ENCOUNTER 2024-02-21 12:11 | Inpatient (IN) | payer MEDICARE, SELFPAY ==
--- NOTE | ~2024-02-21 | CT_ITS ---
EXAMINATION: CT ABDOMEN AND PELVIS WITHOUT CONTRAST CLINICAL INFORMATION: Increasing bilirubin and evaluation for obstruction COMPARISON: CT abdomen pelvis dated 02/21/2024 TECHNIQUE: Multidetector volumetric imaging was performed from the superior aspect of the liver through the pubic symphysis. Sagittal and coronal reformatted images were obtained on the technologist's workstation. This CT examination was performed using dose optimization techniques as appropriate, variously including the following: *Automated exposure control *Adjustment of mA and/or kV according to patient size (this includes techniques or standardized protocols for targeted exams where dose is matched to indication/reason for exam; i.e. extremities or head) *Use of iterative reconstruction technique DLP: 1035 mGy-cm FINDINGS: LUNG BASES: Bibasilar pleural effusions noted with associated consolidations left greater than right that have increased slightly. LIVER, GALLBLADDER, AND BILIARY TREE: Previously noted moderate perihepatic ascites is unchanged. Fluid extends along the inferior margin of the liver down into the right paracolic gutter. The liver has a somewhat cirrhotic contour but I do not see any focal hepatic masses or evidence of intrahepatic biliary dilatation. Note that the study is done without IV contrast. Gallbladder is distended and contains sludge. PANCREAS: Unremarkable. SPLEEN: There is a mild amount of perisplenic ascites which is unchanged. There is a fair amount of ascites inferior to the spleen extending into the left paracolic gutter and down into the pelvis and this has increased slightly. ADRENAL GLANDS: Unremarkable. KIDNEYS AND URETERS: The nonenhanced kidneys are unremarkable although somewhat atrophic. They are not hydronephrotic. No evidence for nephrolithiasis or perinephric collection. BLADDER: The bladder is very distended on today's study but intrinsic calcifications are not seen. GASTROINTESTINAL TRACT: No bowel obstruction or right or left lower quadrant inflammatory change. ABDOMINAL WALL: No significant hernia is appreciated. There is a fair amount of subcutaneous edema throughout particularly in the left flank with associated skin thickening. This has not changed significantly. Some of this may be dependent edema be positional in nature. LYMPH NODES: Normal. VASCULAR: Aorta atherosclerotic but nonaneurysmal. There is vascular calcification seen at the origin of the celiac axis and SMA. PELVIC VISCERA: Unremarkable. OSSEOUS STRUCTURES: There is spondylitic change in the lower thoracic spine with minor anterior wedging but this is unchanged. CT/CT abdomen pelvis wo IV con IMPRESSION: Anasarca. Ascites. Cirrhotic appearing liver. Bibasilar pleural effusions and consolidations as described. There appears to be increasing consolidation in the left lower lung. Fleischner guidelines were followed.
--- NOTE | ~2024-02-21 | US_ITS ---
EXAMINATION: US ABDOMEN LIMITED CLINICAL INFORMATION: Rule out portal venous thrombosis, cirrhosis, jaundice, ascites. COMPARISON: None available. TECHNIQUE: Real-time imaging of the portal vein. FINDINGS: Portal vein is patent with hepatopedal flow. Partially imaged ascites. US/US abdomen limited IMPRESSION: 1. Portal vein is patent with hepatopedal flow. 2. Partially imaged ascites.
--- NOTE | ~2024-02-21 | US_ITS ---
ULTRASOUND GUIDED PARACENTESIS HISTORY: Ascites. Therapeutic and diagnostic. TECHNIQUE: Risks and benefits and possible complications were discussed with the patient's sister and consent form was signed. A safe pocket of ascitic fluid was identified left lower quadrant using ultrasound guidance, and the overlying skin was marked, prepped and draped in sterile fashion. 1% lidocaine was used as a local anesthetic. Using ultrasound guidance, a 5 fr catheter was placed into the ascitic pocket. 0.45 liters of yellow fluid was removed passively. The catheter was then removed. A few patient relations representative images from before and after the examination were obtained. The procedure was performed by Tacho Glass PA-C and supervised by Dr. Solano. US/US paracentesis abd w/image IMPRESSION: Ultrasound-guided paracentesis as described above. No immediate complications
--- NOTE | ~2024-02-21 | CT_ITS ---
EXAMINATION: CT CHEST, ABDOMEN AND PELVIS WITHOUT CONTRAST CLINICAL INFORMATION: Abdominal pain and shortness of breath COMPARISON: 02/07/[address], 01/02/2024 CT abdomen pelvis TECHNIQUE: Multidetector volumetric imaging was performed from the thoracic inlet through the pubic symphysis without IV contrast. Sagittal and coronal reformatted images were obtained on the technologist's workstation. This CT examination was performed using dose optimization techniques as appropriate, variously including the following: *Automated exposure control *Adjustment of mA and/or kV according to patient size (this includes techniques or standardized protocols for targeted exams where dose is matched to indication/reason for exam; i.e. extremities or head) *Use of iterative reconstruction technique DLP: 1635 mGy-cm FINDINGS: CHEST: Lungs and Pleura: Compared to the 02/07/[address], multiple new masslike areas of probable consolidation are seen given the relative rapid appearance (see jian images). There is a 6 mm right upper lobe nodule with some surrounding ill-defined change seen (5:76). There is a 1.5 cm right upper lobe irregular density seen with ill-defined margins (5:114). [id number]-[id number]-type consolidation is seen in the right lower lobe as well as the right middle lobe with an area of denser consolidation seen in the lingula. There is a chronic left-sided pleural effusion and left basilar atelectasis again noted. There is no right pleural effusion. Mediastinum: There is cardiomegaly. Marked coronary calcium is seen. No mediastinal or hilar lymphadenopathy is present. No pericardial effusion is seen. Chest Wall/Axilla: Unremarkable ABDOMEN/PELVIS: Peritoneal Space: No significant free air or free fluid identified. Liver, Gallbladder, Biliary Tree: The liver is cirrhotic in appearance, small and nodular with ascites present. The gallbladder appears unremarkable. No liver masses or bile duct dilatation seen. Pancreas: Some fluid is present around the pancreas but probably related to above-mentioned ascites. No pancreatic mass, pancreatic ductal dilatation or pancreatic calcifications are seen. Spleen: Unremarkable Adrenal Glands: Unremarkable Kidneys and Ureters: The kidneys are normal in size, shape, and attenuation. No hydronephrosis, hydroureter, or calculi seen. No perinephric stranding. Bladder: Unremarkable Gastrointestinal Tract: The small and large bowel are unremarkable. The appendix is not seen but there is no evidence of appendicitis evidence of appendicitis. Abdominal Wall: Anasarca is present. There is a supraumbilical midline incision. No abdominal wall hernias are seen. Multiple nodular calcified areas are seen in the abdominal wall presumably secondary to subcutaneous injections. Lymph Nodes: No retroperitoneal lymphadenopathy is seen. Some harsha nonspecific changes are present in the mesentery. Some inflammatory changes seen in the region of the omentum just above the bladder unchanged from prior. Vascular: Calcific atherosclerotic changes are present in the aorta and iliofemoral vessels. There is no evidence of an abdominal aortic aneurysm.. The IVC appears unremarkable. PELVIC VISCERA: The uterus is not seen. An abnormal adnexal mass is not detected. No free intraperitoneal fluid is present. OSSEUS STRUCTURES: Moderate degenerative changes are noted in the spine. No bony destructive lesions are seen. CT/CT abdomen pelvis wo IV con IMPRESSION: 1. Multiple new masslike areas of consolidation are seen in the lungs. These are most likely infectious in etiology consistent with multifocal pneumonia. Follow-up after treatment is recommended to confirm resolution. 2. Chronic left-sided pleural effusion and left basilar atelectasis. 3. Cirrhotic liver with ascites. 4. Other incidental findings as described above. Fleischner guidelines were followed.
--- NOTE | ~2024-02-21 | XR_ITS ---
EXAMINATION: XR CHEST CLINICAL INFORMATION: Cough. COMPARISON: Chest radiograph dated 02/11/2024. TECHNIQUE: Frontal view of the chest was obtained. FINDINGS: There are low lung volumes. The cardiac silhouette is normal in size. It is difficult to exclude a small lateral left lower lobe opacity. The lungs are otherwise clear. There is no large pleural effusion. There is no pneumothorax. No acute osseous abnormality. XR/XR chest 1V IMPRESSION: Low lung volumes. It is difficult to exclude a small left lateral lung opacity. The lungs are otherwise clear.
--- NOTE | ~2024-02-21 | XR_ITS ---
EXAMINATION: XR CHEST CLINICAL INFORMATION: NG tube placement. COMPARISON: Chest radiograph dated 02/21/2024 at 1:[address] chest dated 02/21/2024. TECHNIQUE: Frontal view of the chest was obtained. FINDINGS: The tip of the enteric tube terminates over the stomach. Heart size remains stable. The masslike areas of consolidation throughout both lungs are better delineated on CT chest performed earlier in the day. There is a left pleural effusion. No pneumothorax is evident. XR/XR chest 1V IMPRESSION: The tip of the enteric tube terminates over the stomach. Heart and lungs are stable in appearance.
--- NOTE | ~2024-02-21 | CT_ITS ---
EXAMINATION: CT HEAD WITHOUT CONTRAST CLINICAL INFORMATION: Change in mental status. On blood thinner. COMPARISON: CT head dated 02/11/2024. TECHNIQUE: Contiguous axial imaging was performed from the skull base to vertex without intravenous administration of contrast. This CT examination was performed using dose optimization techniques as appropriate, variously including the following: *Automated exposure control *Adjustment of mA and/or kV according to patient size (this includes techniques or standardized protocols for targeted exams where dose is matched to indication/reason for exam; i.e. extremities or head) *Use of iterative reconstruction technique DLP: 895 mGy-cm FINDINGS: There is no acute intracranial hemorrhage. There is no evidence of acute/subacute cerebral or cerebellar infarction. There is moderate microvascular ischemic change. There is no midline shift or mass effect. There is no extra-axial fluid collection. The ventricles are normal in size. The calvarium is intact. The mastoid air cells are clear. There is scattered ethmoid air cell mucosal disease. CT/CT head/brain wo IV con IMPRESSION: No acute intracranial abnormality. There is moderate microvascular ischemic change.
--- NOTE | ~2024-02-21 | CT_ITS ---
EXAMINATION: CT HEAD WITHOUT CONTRAST CLINICAL INFORMATION: Asymmetric pupils. COMPARISON: CT head February 21, 2024 TECHNIQUE: Contiguous axial imaging was performed from the skull base to vertex without intravenous administration of contrast. Coronal and sagittal reformatted images are performed at the CT scanner. [This CT examination was performed using dose optimization techniques as appropriate, variously including the following: *Automated exposure control *Adjustment of mA and/or kV according to patient size (this includes techniques or standardized protocols for targeted exams where dose is matched to indication/reason for exam; i.e. extremities or head) *Use of iterative reconstruction technique] DLP: 674 mGy-cm. FINDINGS: There is no evidence of acute intracranial hemorrhage or territorial infarction. No abnormal mass-effect or midline shift is seen. [place] to white matter differentiation is well preserved. No extra-axial fluid collections are identified. There is generalized global volume loss. There is moderate prominence of the ventricles and the sulci . There is moderate hypodensity of the periventricular white matter due to chronic small vessel ischemic disease. There are vascular calcifications of the internal carotid arteries bilaterally. There is no osseous abnormality. The mastoid air cells and visualized portions of the paranasal sinuses are well-aerated. CT/CT head/brain wo IV con IMPRESSION: No acute intracranial pathology.
--- NOTE | 2024-02-21 12:22 | ECG_ITS ---
Test Reason : ams Blood Pressure : / mmHG Vent. Rate : 091 BPM Atrial Rate : 091 BPM P-R Int : 246 ms QRS Dur : 098 ms QT Int : 346 ms P-R-T Axes : 033 -15 166 degrees QTc Int : 425 ms Sinus rhythm with 1st degree A-V block Anterolateral infarct (cited on or before 20-JAN-2023) Abnormal ECG When compared with ECG of 11-FEB-2024 05:24, Sinus rhythm has replaced Atrial fibrillation Serial changes of Anterior infarct Present Referred By: Evangelina Patton Electronically Signed By:SARANYA HER MD
[2024-02-21 12:32] VITALS: BP 185/65; PULSE 87; RESP 16; O2SAT 98
[2024-02-21 12:33] LABS: Glucose, Whole Blood 265 mg/dL (60-115)
[2024-02-21 12:42] VITALS: BP 178/76; BP 185/65; PULSE 87; PULSE 88; RESP 17; TEMP 36.7; O2SAT 96; O2SAT 98; BMI 45.9
--- NOTE | 2024-02-21 12:49 | ED_ITS ---
HPI - Altered Mental Status General Chief Complaint: Weakness Stated Complaint: AMS PER EMS Time Seen by Provider: 02/21/24 12:22 Source: EMS Mode of arrival: EMS History of Present Illness HPI narrative: 73-year-old female is brought in by EMS with acute altered mental status and a significant past medical history of atrial fibrillation with RVR/hypoglycemia/COPD as well as diabetes. Patient is currently not providing any of the medical history. Related Data Home Medications ?Medication ?Instructions ?Recorded ?Confirmed albuterol sulfate 90 mcg/actuation 2 puff inhalation Q4H PRN 01/20/23 02/11/24 aerosol inhaler Shortness Of Breath Or Wheezing apixaban 5 mg tablet (Eliquis) 5 mg PO BID 01/20/23 02/11/24 calcium carbonate 600 mg-vitamin 1 tab PO DAILY 01/20/23 02/11/24 D3 5 mcg (200 unit) tablet citalopram 20 mg tablet 20 mg PO DAILY 01/20/23 02/11/24 ferrous sulfate 325 mg (65 mg 325 mg PO DAILY 01/20/23 02/11/24 iron) tablet levothyroxine 50 mcg tablet 50 mcg PO DAILY@0600 01/20/23 02/11/24 montelukast 10 mg tablet 10 mg PO BEDTIME 01/20/23 02/11/24 insulin glargine 100 unit/mL (3 50 unit subcut BID 06/01/23 02/11/24 mL) subcutaneous pen (Basaglar KwikPen U-100 Insulin) docusate sodium 100 mg capsule 100 mg PO BID PRN Constipation 07/20/23 02/11/24 folic acid 1 mg tablet 1 mg PO DAILY 07/20/23 02/11/24 adalimumab 40 mg/0.8 mL 40 mg subcut Q14D 11/22/23 02/11/24 subcutaneous syringe kit (Humira) fluticasone 500 mcg-salmeterol 50 1 ea inhalation BID 11/22/23 02/11/24 mcg/dose blistr powdr for inhalation (Charisela Inhub) insulin regular human 100 unit/mL 40 unit subcut TID 02/07/24 02/11/24 (3 mL) subcutaneous pen (Novolin R FlexPen) lactulose 10 gram/15 mL oral 10 ml PO BID 04/29/24 05/03/24 solution (Enulose) simvastatin 20 mg tablet 20 mg PO BEDTIME 02/07/24 02/11/24 Previous Rx's ?Medication ?Instructions ?Recorded prednisone 20 mg tablet 40 mg (2 x 20 mg) PO DAILY #10 tabs 02/08/24 diltiazem HCl 180 mg 360 mg PO DAILY #0 caps 02/17/24 capsule,extended release 24 hr (Cardizem CD) levalbuterol HCl 1.25 mg/3 mL 1.25 mg (3 mL) inhalation Q4H PRN 02/17/24 solution for nebulization Shortness Of Breath/Wheezing #0 mL Allergies Allergy/AdvReac Type Severity Reaction Status Date / Time rosuvastatin [From CRESTOR] Allergy Unknown Unknown Verified 02/21/24 12:51 empagliflozin Allergy Unknown Verified 02/21/24 12:51 [From Jardiance] piperacillin [From Zosyn] AdvReac Intermediate Vomiting Verified 02/21/24 12:51 tazobactam [From Zosyn] AdvReac Intermediate Vomiting Verified 02/21/24 12:51 Review of Systems 2 Review of Systems: Yes Unobtainable due to mental condition PMFSH Past Medical History Source: nursing notes reviewed Medical History Asthma Bacteremia Morbid (severe) obesity due to excess calories Asthma-COPD overlap syndrome Hypothyroidism Pulmonary embolism Depression Hyperlipidemia Rheumatoid arthritis Hypertension Diabetes mellitus, type 2 Social History Social History Household Members: Family Household Members Other:: sister and brother Housing: House Do you presently have visiting nurse or other home services: No (Meals on Wheels) Alcohol intake: never Patient Tobacco Use Status: Never used Tobacco Advance Directives: Yes Advance Directives on File: Yes Advance Directives Date on File: 06/07/23 Do you have a plan to hurt others: No Plan service: No Current occupational status: disabled Physical Exam ED Vital Signs: Vital Signs - 24 hr 02/21/24 12:32 02/21/24 12:42 02/21/24 16:31 Temperature 98.1 F Pulse Rate 87 87 105 H Respiratory Rate 16 17 15 Blood Pressure 185/65 H 185/65 H 197/65 H Pulse Oximetry 98 98 97 Oxygen Delivery Method Room Air Nasal Cannula Nasal Cannula Room Air Oxygen Flow Rate 2 05/13/24 18:28 Temperature Pulse Rate Respiratory Rate Blood Pressure 159/80 H Pulse Oximetry Oxygen Delivery Method Oxygen Flow Rate BMI result Body Mass Index 45.9 VITAL SIGNS: Reviewed. GENERAL: Elevated BMI, chronically ill, in mild distress. HEAD: Normocephalic/atraumatic EYES: PERRLA, EOMI EARS: Ext canals without abnormality NOSE: Nares patent bilateral OROPHARYNX: no oral lesions noted, posterior pharynx clear NECK: Supple, no adenopathy LUNGS: Decreased breath sounds bilaterally, scattered rhonchi SpO2<98> on 2 L nasal cannula CARDIOVASCULAR: Regular rate and rhythm without noted murmurs, no JVD but bilateral 1+ pitting edema ABDOMEN: Soft, non-tender, non-distended with bowel sounds. MUSCULOSKELETAL: No tenderness, deformities, or effusions noted on gross inspection. EXTREMITIES: No cyanosis, clubbing or edema. SKIN: Inspection of the skin reveals no rashes NEUROLOGIC: Arousable, GCS-11 Medications Administered Discontinued Medications Generic Name Dose Route Start Last Admin Trade Name Freq PRN Reason Stop Dose Admin Furosemide 40 mg 02/21/24 18:06 02/21/24 18:28 Furosemide 40 Mg/4 Ml Vial IVPUSH 02/21/24 18:07 40 mg ONCE ONE Administration Protocol Calcium Gluconate 2 gm in 100 mls @ 400 mls/hr 02/21/24 13:37 02/21/24 14:50 Calcium Gluconate IV 02/21/24 13:51 Infused ONCE ONE Infusion Cefepime HCl 1 gm/ Sodium 50 mls @ 100 mls/hr 02/21/24 15:02 02/21/24 16:29 Chloride IV 02/21/24 15:31 Infused ONCE ONE Infusion Sodium Chloride 500 mls @ 500 mls/hr 02/21/24 15:15 02/21/24 17:23 Ns IV 02/21/24 16:14 Infused .Q1H GIOVANNI Infusion Insulin Human Regular 5 unit 02/21/24 13:37 02/21/24 14:29 Insulin Regular, Human 100 Unit/Ml 3 Ml Vial IVPUSH 02/21/24 13:38 5 unit ONCE ONE Administration Labetalol HCl 5 mg 02/21/24 18:10 02/21/24 18:27 Labetalol Hcl 100 Mg/20 Ml Vial IVPUSH 02/21/24 18:11 Not Given ONCE ONE Sodium Zirconium Cyclosilicate 10 gm 02/21/24 18:07 02/21/24 18:27 Sodium Zirconium Cyclosilicate 10 Gm Powd.Pack PO 02/21/24 18:08 Not Given ONCE ONE Medical Decision Making Medical Decision Making [facility] Narrative: 1222: 73-year-old female with history and clinical presentation, DDX: Hypercapnia, pneumonia, dehydration, lower clinical suspicion for focal neurologic etiology, possible urinary tract infection INTERVENTION: LACTIC ACID/BLOOD CULTURES/ANTIBIOTIC I reviewed all investigations and hematologic indices demonstrate a leukocytosis with a left shift a stable/chronic normocytic anemia as well as stable thrombocytopenia. Coagulation studies demonstrate slight elevation which is consistent with patient's chronic anticoagulation use. VBG is not significant for respiratory acidosis nor is patient noted to be hypercapnic and thus not a source of her altered mental status. Chemistry indices demonstrate evidence of dehydration with a stable CKD but noted new findings are for hyperkalemia without acute EKG changes and otherwise chronically stable liver enzymes, initial high sensitivity troponin is noted to be elevated at 107.3 however there is no evidence of ST elevation and suspect this is reflective of patient's underlying medical condition, 2nd troponin is lower. Repeat BMP demonstrates chronically stable chemistry findings and no notable improvement in potassium level. Ammonia is also noted to be elevated and is likely contributing to patient's altered mental status. CT of the head does not demonstrate any intracranial hemorrhage or mass effect. CT of the chest which has not been officially read clearly demonstrates left lower lobe infiltrate as well as effusion. Patient is oxygenating well on room air. 1754: Discussed with Dr Dodson who recommends Lasix, Lokelma via NG tube or IN as needed. I reviewed the results for ammonia levels which demonstrates that they are elevated and likely contributing to patient's confusion and altered mental status in conjunction with the pneumonia. Second troponin flat, suspect Type II. 5: I discussed case with inpatient hospitalist who accepts admission. Differential Diagnosis Differential Diagnoses: The differential diagnosis associated with the presentation includes Please see the discussion above Admission/Observation Consideration of admission/observation: Escalation of care including admission/observation considered Please see the discussion above Lab Data [facility] Lab Attestation statement: I reviewed the patient's lab results. Please see the discussion above 02/21/24 13:04 02/21/24 17:22 Labs: Lab Results 02/21/24 02/21/24 02/21/24 Range/Units 12:30 13:04 13:37 WBC 13.3 H (4.8-10.8) X10*3/uL RBC 4.05 L (4.20-5.50) X10*6/uL Hgb 11.9 L (12.0-16.0) g/dl Hct 35.5 L (37.0-47.0) % MCV 87.7 (80.0-98.0) fL MCH 29.4 (27.0-33.0) pg MCHC 33.5 (31.0-35.0) g/dl RDW 18.4 H (11.0-16.0) % Plt Count 138 L (160-400) X10*3/uL MPV 10.8 (9.4-12.3) fL Immature Gran % (Auto) 0.3 (0.0-0.4) % Neut % (Auto) 80.5 H (45-73) % Lymph % (Auto) 7.8 L (20-40) % [place] % (Auto) 10.9 (2-11) % Eos % (Auto) 0.4 (0-4) % Baso % (Auto) 0.1 (0-2) % Lymph # (Auto) 1.0 L (1.2-4.9) X10*3/uL [place] # (Auto) 1.4 H (0.1-1.2) X10*3/uL Eos # (Auto) 0.1 (0.0-0.4) X10*3/uL Baso # (Auto) 0.0 (0.0-0.2) X10*3/uL Abs Immat Gran (auto) 0.04 H (0.00-0.03) X10*3/uL Absolute Neuts (auto) 10.7 H (2.0-8.3) x10*3/uL Absolute Nucleated RBC 0.000 (0.0-0.012) X10*3/uL Nucleated RBC % (auto) 0.0 (0.0-0.2) /100WBC PT 15.3 H (11.1-13.3) SEC INR 1.3 H (0.9-1.1) VBG pH 7.46 H (7.32-7.43) VBG pCO2 39 mmHg VBG pO2 66 mmHg VBG HCO3 28 H (22-26) mmol/L VBG O2 Saturation 90.0 % VBG Base Excess 4.1 mmol/L Sodium 129 L (135-145) mmol/L Potassium 6.2 H* (3.3-5.1) mmol/L Chloride 94 L (96-108) mmol/L Carbon Dioxide 22 (22-29) mmol/L Anion Gap 19 (12-20) BUN 110 H (9-16) mg/dL Creatinine 1.80 H (0.5-1.4) mg/dL Estim Creat Clear Calc 35.7 Estimated GFR 28 POC Glucose 265 H (60-115) mg/dL Random Glucose 267 H (60-115) mg/dL Lactic Acid 1.7 (0.5-2.0) mmol/L Calcium 9.3 (8.4-10.2) mg/dL Total Bilirubin 2.1 H (0.0-1.0) mg/dL AST 60 H (5-31) U/L ALT 89 H (0-31) U/L Alkaline Phosphatase 213 H (39-117) U/L Ammonia (13-55) umol/L Troponin I High Sens 107.3 H* D (<3.5-17.0) ng/L B-Natriuretic Peptide 199 H (<100) pg/mL Total Protein 7.2 (6.5-8.0) g/dL Albumin 2.8 L (3.5-5.0) g/dL Urine Color Urine Appearance Urine pH (5.0-9.0) Ur Specific [place] (1.005-1.025) Urine Protein (Neg-Trace) mg/dL Urine Glucose (UA) (Negative) mg/dL Urine Ketones (Negative) mg/dL Urine Blood (Negative) Urine Nitrite (Negative) Ur Leukocyte Esterase (Negative) Urine RBC (0-2) /HPF Urine WBC (0-5) /HPF Ur Squamous Epith Cells (0-2) /HPF Urine Bacteria (None Seen) Hyaline Casts (0-2) /LPF Urine Yeast 24 02/21/24 Range/Units 15:16 17:22 WBC (4.8-10.8) X10*3/uL RBC (4.20-5.50) X10*6/uL Hgb (12.0-16.0) g/dl Hct (37.0-47.0) % MCV (80.0-98.0) fL MCH (27.0-33.0) pg MCHC (31.0-35.0) g/dl RDW (11.0-16.0) % Plt Count (160-400) X10*3/uL MPV (9.4-12.3) fL Immature Gran % (Auto) (0.0-0.4) % Neut % (Auto) (45-73) % Lymph % (Auto) (20-40) % [place] % (Auto) (2-11) % Eos % (Auto) (0-4) % Baso % (Auto) (0-2) % Lymph # (Auto) (1.2-4.9) X10*3/uL [place] # (Auto) (0.1-1.2) X10*3/uL Eos # (Auto) (0.0-0.4) X10*3/uL Baso # (Auto) (0.0-0.2) X10*3/uL Abs Immat Gran (auto) (0.00-0.03) X10*3/uL Absolute Neuts (auto) (2.0-8.3) x10*3/uL Absolute Nucleated RBC (0.0-0.012) X10*3/uL Nucleated RBC % (auto) (0.0-0.2) /100WBC PT (11.1-13.3) SEC INR (0.9-1.1) VBG pH (7.32-7.43) VBG pCO2 mmHg VBG pO2 mmHg VBG HCO3 (22-26) mmol/L VBG O2 Saturation % VBG Base Excess mmol/L Sodium 131 L (135-145) mmol/L Potassium 6.0 H* (3.3-5.1) mmol/L Chloride 99 (96-108) mmol/L Carbon Dioxide 22 (22-29) mmol/L Anion Gap 16 (12-20) BUN 105 H (9-16) mg/dL Creatinine 1.70 H (0.5-1.4) mg/dL Estim Creat Clear Calc 37.8 Estimated GFR 29 POC Glucose (60-115) mg/dL Random Glucose 198 H (60-115) mg/dL Lactic Acid (0.5-2.0) mmol/L Calcium 9.8 (8.4-10.2) mg/dL Total Bilirubin (0.0-1.0) mg/dL AST (5-31) U/L ALT (0-31) U/L Alkaline Phosphatase (39-117) U/L Ammonia 102 H (13-55) umol/L Troponin I High Sens 99.9 H* (<3.5-17.0) ng/L B-Natriuretic Peptide (<100) pg/mL Total Protein (6.5-8.0) g/dL Albumin (3.5-5.0) g/dL Urine Color Yellow Urine Appearance Clear Urine pH 5.5 (5.0-9.0) Ur Specific [place] 1.015 (1.005-1.025) Urine Protein Negative (Neg-Trace) mg/dL Urine Glucose (UA) Negative (Negative) mg/dL Urine Ketones Negative (Negative) mg/dL Urine Blood Trace H (Negative) Urine Nitrite Negative (Negative) Ur Leukocyte Esterase Negative (Negative) Urine RBC 11-20 H (0-2) /HPF Urine WBC 0-5 (0-5) /HPF Ur Squamous Epith Cells 0-2 (0-2) /HPF Urine Bacteria Trace (None Seen) Hyaline Casts 0-2 (0-2) /LPF Urine Yeast Present Independent Interpretation I performed an independent interpretation of an: EKG Interpretation: Atrial fibrillation, HR -91, no STEMI, QRS/QTC is within normal limits. Radiology Impression Discussion of test interpretation with radiology: I have reviewed the radiologist's reading. Radiologist Impression: Please see the discussion above External Record Review External record reviewed: Outpatient record, Prior outpatient labs and Prior outpatient radiology Chronic Conditions Patient?s care impacted by: Diabetes Atrial fibrillation on chronic anticoagulation, CKD, COPD Critical Care Time Critical Care Time Critical Care Time: Yes Total Critical Care Time: 60 Attestation: I personally attest to this time spent taking care of the patient. Discharge Plan Discharge Clinical Impression: Mental status alteration, Hyperkalemia, Pneumonia, Encephalopathy, hepatic, Increased ammonia level Patient Disposition: Admitted As Inpatient Print Language: Sudanese
[2024-02-21 13:10] LABS: MANUAL DIFF FLAG NO
[2024-02-21 13:11] LABS: Basophils Percent Auto 0.1 % (0-2); Eosinophils Absolute Auto 0.1 X10*3/uL (0.0-0.4); Eosinophils Percent Auto 0.4 % (0-4); Hematocrit 35.5 % (37.0-47.0); Hemoglobin 11.9 g/dl (12.0-16.0); Imm Gran Abs Auto 0.04 X10*3/uL (0.00-0.03); Imm Gran Pct Auto 0.3 % (0.0-0.4); Lymphocytes Percent Auto 7.8 % (20-40); Mean Corpuscular HGB Conc 33.5 g/dl (31.0-35.0); Mean Corpuscular Hemoglobin 29.4 pg (27.0-33.0); Mean Corpuscular Volume 87.7 fL (80.0-98.0); Mean Platelet Volume 10.8 fL (9.4-12.3); Monocytes Absolute Auto 1.4 X10*3/uL (0.1-1.2); Monocytes Percent Auto 10.9 % (2-11); Neutrophils Absolute Auto 10.7 x10*3/uL (2.0-8.3); Neutrophils Percent Auto 80.5 % (45-73); Platelet Count 138 X10*3/uL (160-400); Red Blood Count 4.05 X10*6/uL (4.20-5.50); Red Cell Distribution Width 18.4 % (11.0-16.0); White Blood Count 13.3 X10*3/uL (4.8-10.8)
[2024-02-21 13:18] LABS: INTERNATIONAL NORM RATIO 1.3 (0.9-1.1); Prothrombin Time 15.3 SEC (11.1-13.3)
[2024-02-21 13:29] LABS: Lactic Acid 1.7 mmol/L (0.5-2.0)
[2024-02-21 13:36] LABS: Alanine Aminotransferase 89 U/L (0-31); Albumin Level 2.8 g/dL (3.5-5.0); Alkaline Phosphatase 213 U/L (39-117); Anion Gap 19 (12-20); Aspartate Amino Transferase 60 U/L (5-31); Bilirubin Total 2.1 mg/dL (0.0-1.0); Blood Urea Nitrogen 110 mg/dL (9-16); Calcium 9.3 mg/dL (8.4-10.2); Carbon Dioxide 22 mmol/L (22-29); Chloride 94 mmol/L (96-108); Creatinine Clr Calc Pharmacy 35.7; Estimated Glomerular Filt Rate 28; Glucose Random 267 mg/dL (60-115); Potassium 6.2 mmol/L (3.3-5.1); Sodium 129 mmol/L (135-145); Total Protein 7.2 g/dL (6.5-8.0)
[2024-02-21 13:38] LABS: B Type Natriuretic Peptide 199 pg/mL (<100)
[2024-02-21 13:51] LABS: Venous Blood Gas Refer to POC result
[2024-02-21 13:51] LABS: VBG Base Excess 4.1 mmol/L; VBG HCO3 28 mmol/L (22-26); VBG pCO2 39 mmHg; VBG pH 7.46 (7.32-7.43); VBG pO2 66 mmHg
[2024-02-21 14:10] LABS: Troponin-I High Sensitivity 107.3 ng/L (<3.5-17.0)
[2024-02-21] MEDS: Calcium Gluconate/NaCl,Iso-Osm 2 GM/100 ML PLAST..BAG IV (14:16)
[2024-02-21] MEDS: Insulin Regular, Human 100 UNIT/ML 3 ML VIAL IVPUSH ×2 (14:29→19:43)
[2024-02-21 15:28] LABS: Appearance Urine Clear; Color Urine Yellow; Glucose Urine UA Negative (Negative); Leukocyte Esterase Urine Negative (Negative); Nitrite Urine Negative (Negative); PH 5.5 (5.0-9.0); Specific Gravity - Urine 1.015 (1.005-1.025); UMIC TRIGGER UACC YES; Urine Blood Trace (Negative); Urine Ketones Negative (Negative); Urine Protein Negative (Neg-Trace)
[2024-02-21] MEDS: cefEPime HCl 1 GM in 0.9 % Sodium Chloride 50 ML IV (15:34)
[2024-02-21] MEDS: 0.9 % Sodium Chloride 500 ML IV (15:34)
[2024-02-21 16:20] LABS: Bacteria Urine Trace (None Seen); Hyaline Casts Urine 0-2 /LPF (0-2); Squamous Epithelial Cell Urine 0-2 /HPF (0-2); WBC Urine 0-5 /HPF (0-5)
--- NOTE | 2024-02-21 16:30 | MHC.EDTECH ---
This tech attempted x2. Patient has a lot of edema, got 2 flashes but no blood draws.
[2024-02-21 16:31] VITALS: BP 197/65; PULSE 105; RESP 15; O2SAT 97
[2024-02-21 17:39] LABS: Ammonia 102 umol/L (13-55)
[2024-02-21 17:49] LABS: Anion Gap 16 (12-20); Blood Urea Nitrogen 105 mg/dL (9-16); Calcium 9.8 mg/dL (8.4-10.2); Carbon Dioxide 22 mmol/L (22-29); Chloride 99 mmol/L (96-108); Creatinine Clr Calc Pharmacy 37.8; Estimated Glomerular Filt Rate 29; Glucose Random 198 mg/dL (60-115); Sodium 131 mmol/L (135-145)
[2024-02-21 17:59] LABS: Troponin-I High Sensitivity 99.9 ng/L (<3.5-17.0)
[2024-02-21 18:28] VITALS: BP 159/80
[2024-02-21] MEDS: Furosemide 40 MG/4 ML VIAL IVPUSH (18:28)
[2024-02-21 19:38] LABS: Glucose, Whole Blood 184 mg/dL (60-115)
[2024-02-21 20:04] LABS: Glucose, Whole Blood 179 mg/dL (60-115)
--- NOTE | 2024-02-21 20:19 | PM.IMHP ---
History of Present Illness Date of Service: 02/21/24 Attending physician on admission: Donal Crawford Chief Complaint: ams 73-year-old female with a PMH significant for?asthma/COPD overlap syndrome not on home O2, hx of PE on Eliquis, paroxysmal atrial fibrillation, insulin-dependent type 2 diabetes, hypothyroidism, GERD, BELTRAN cirrhosis, and mood disorder presented to the ED from [facility] ([place] due to altered mental status. Per her niece, who is at bedside and helps to assist with history as patient is obtunded, reports yesterday the patient was conversive and coherent though was complaining of shortness of breath. Per facility report, pt has been receiving lactulose 10 g t.i.d., though reason for administration is p.r.n. constipation. Per nursing facility, pt has been afebrile without hypoxia. No respiratory symptoms reported and no noted aspiration. On arrival, patient noted to be in atrial fibrillation on county nurse and mildly tachycardic in the low 100s. There is no fevers or tachycardia. The patient is obtunded, minimally responsive opening her eyes to tactile stimulus only. She has a leukocytosis of 13.3., platelets 130. INR 1.3. Creatinine consistent with baseline, BUN slightly bumped at 01:05. Sodium 131, potassium 6.0 on admission following 40 mg Lasix and Lokelma, was 6.3 earlier. Hepatic function consistent with baseline. Glucose 198. Lactic acid 1.7. Ammonia 102. Initial troponin 107.3, repeat 99. VBG reassuring without any hypercapnia, but showing a mild metabolic alkalosis with pH 7.46, bicarb 28. Urinalysis unremarkable. Head CT negative for any acute intracranial abnormality which shows moderate microvascular ischemic changes. Chest CT shows multiple new masslike areas of consolidation likely consistent with multifocal pneumonia as well as chronic left-sided pleural effusion with left basilar atelectasis and cirrhotic liver with ascites noted on abdominal CT. There is also constipation and anasarca/ascites noted. EKG shows sinus rhythm with first-degree AV cynthia block, rate 91, no ST/T-wave abnormality. However, again on county nurse, patient is noted to be in atrial fibrillation with mild RVR with rate in the low 100s. ED did discuss case with Nephrology recommending 40 mg IV Lasix, and Lokelma for hyperkalemia. She was also given 5 units regular insulin x2 and calcium gluconate. NG tube placed and given lactulose via NG tube. Review of Systems Review of Systems: Yes Unobtainable due to mental status [facility] Medical History Asthma Bacteremia Morbid (severe) obesity due to excess calories Asthma-COPD overlap syndrome Hypothyroidism Pulmonary embolism Depression Hyperlipidemia Rheumatoid arthritis Hypertension Diabetes mellitus, type 2 Social History Household Members: Family Household Members Other:: sister and brother Housing: House Do you presently have visiting nurse or other home services: No (Meals on Wheels) Alcohol intake: never Patient Tobacco Use Status: Never used Tobacco Advance Directives: Yes Advance Directives on File: Yes Advance Directives Date on File: 06/07/23 Do you have a plan to hurt others: No Plan service: No Current occupational status: disabled Meds Allergies Allergy/AdvReac Type Severity Reaction Status Date / Time rosuvastatin [From CRESTOR] Allergy Unknown Unknown Verified 02/21/24 12:51 empagliflozin Allergy Unknown Verified 02/21/24 12:51 [From Jardiance] piperacillin [From Zosyn] AdvReac Intermediate Vomiting Verified 02/21/24 12:51 tazobactam [From Zosyn] AdvReac Intermediate Vomiting Verified 02/21/24 12:51 Active Medications: Current Medications Acetaminophen (Acetaminophen 325 Mg Tablet) 650 mg PO Q6H PRN PRN Reason: Fever Acetaminophen (Acetaminophen 325 Mg Tablet) 650 mg PO Q6H PRN PRN Reason: Pain, Mild (Pain Scale 1-3) Acetaminophen (Acetaminophen 325 Mg Tablet) 650 mg PO Q6H PRN PRN Reason: Headache Dextrose (D10) 250 mls @ 750 mls/hr IV Q15M PRN PRN Reason: per Hypoglycemia Standing Ord. Melatonin (Melatonin 3 Mg Tablet) 6 mg PO BEDTIME PRN PRN Reason: Insomnia Sodium Chloride (0.9 % Sodium Chloride Flush 3 Ml Syringe) 3 ml IVFLUSH QSHIFT [facility] Home Medications ?Medication ?Instructions ?Recorded ?Confirmed ?Last Taken ?Type albuterol sulfate 90 mcg/actuation 2 puff inhalation Q4H PRN 04/10/0202/11/24 01/19/23 History aerosol inhaler Shortness Of Breath Or Wheezing apixaban 5 mg tablet (Eliquis) 5 mg PO BID 01/20/23 02/11/24 11/22/23 History calcium carbonate 600 mg-vitamin 1 tab PO DAILY 01/20/23 02/11/24 11/22/23 History D3 5 mcg (200 unit) tablet citalopram 20 mg tablet 20 mg PO DAILY 01/20/23 02/11/24 11/22/23 History ferrous sulfate 325 mg (65 mg 325 mg PO DAILY 01/20/23 02/11/24 11/22/23 History iron) tablet levothyroxine 50 mcg tablet 50 mcg PO DAILY@0600 01/20/23 02/11/24 11/22/23 History montelukast 10 mg tablet 10 mg PO BEDTIME 01/20/23 02/11/24 11/21/23 History insulin glargine 100 unit/mL (3 50 unit subcut BID 06/01/23 02/11/24 11/22/23 History mL) subcutaneous pen (Basaglar KwikPen U-100 Insulin) docusate sodium 100 mg capsule 100 mg PO BID PRN Constipation 07/20/23 02/11/24 11/22/23 History folic acid 1 mg tablet 1 mg PO DAILY 07/20/23 02/11/24 11/22/23 History adalimumab 40 mg/0.8 mL 40 mg subcut Q14D 11/22/23 02/11/24 01/26/24 History subcutaneous syringe kit (Humira) fluticasone 500 mcg-salmeterol 50 1 ea inhalation BID 11/22/23 02/11/24 11/22/23 History mcg/dose blistr powdr for inhalation (Wixela Inhub) insulin regular human 100 unit/mL 40 unit subcut TID 02/07/24 02/11/24 Unknown History (3 mL) subcutaneous pen (Novolin R FlexPen) lactulose 10 gram/15 mL oral 10 ml PO BID 02/07/24 02/11/24 Unknown History solution (Enulose) simvastatin 20 mg tablet 20 mg PO BEDTIME 02/07/24 02/11/24 Unknown History Physical Exam Vital Signs and Narrative: Vital Signs: Last Vital Signs Temp 98.1 F 02/21/24 12:42 Pulse 105 H 05/13/24 16:31 Resp 15 02/21/24 16:31 BP 159/80 H 02/21/24 18:28 Pulse Ox 97 02/21/24 16:31 O2 Del Method Room Air 02/21/24 16:31 O2 Flow Rate 2 02/21/24 12:32 Oxygen Flow Rate 2 02/21/24 12:42 BMI result Body Mass Index 45.9 Constitutional - pt obtunded and minimally responsive to tactile stimulus, No apparent distress Eyes - PERRLA, EOMI Cardiovascular - S1S2, RRR, 1+ ble edema Respiratory - Normal lung expansion, Normal respiratory effort, No respiratory distress, CTA bilaterally Gastrointestinal -NG tube in place. soft nttp; +BS; No rebound or guarding Extremities - no calf tenderness bilaterally, no swelling Skin - Warm/Dry Neurological - obtunded, responsive to only tactile stimulus Results Labs 02/21/24 13:04 02/21/24 17:22 Labs: Laboratory Results - last 24 hr 02/21/24 02/21/24 02/21/24 12:30 13:04 13:37 MCV 87.7 MCH 29.4 MCHC 33.5 RDW 18.4 H Plt Count 138 L MPV 10.8 Immature Gran % (Auto) 0.3 Neut % (Auto) 80.5 H Lymph % (Auto) 7.8 L [place] % (Auto) 10.9 Eos % (Auto) 0.4 Baso % (Auto) 0.1 Lymph # (Auto) 1.0 L [place] # (Auto) 1.4 H Eos # (Auto) 0.1 Baso # (Auto) 0.0 Abs Immat Gran (auto) 0.04 H Absolute Neuts (auto) 10.7 H Absolute Nucleated RBC 0.000 Nucleated RBC % (auto) 0.0 PT 15.3 H INR 1.3 H VBG pH 7.46 H VBG pCO2 39 VBG pO2 66 VBG HCO3 28 H VBG O2 Saturation 90.0 VBG Base Excess 4.1 Anion Gap 19 Estim Creat Clear Calc 35.7 Estimated GFR 28 POC Glucose 265 H Random Glucose 267 H Lactic Acid 1.7 Calcium 9.3 Total Bilirubin 2.1 H AST 60 H ALT 89 H Alkaline Phosphatase 213 H Ammonia Troponin I High Sens 107.3 H* D B-Natriuretic Peptide 199 H Total Protein 7.2 Albumin 2.8 L Urine Color Urine Appearance Urine pH Ur Specific [place] Urine Protein Urine Glucose (UA) Urine Ketones Urine Blood Urine Nitrite Ur Leukocyte Esterase Urine RBC Urine WBC Ur Squamous Epith Cells Urine Bacteria Hyaline Casts Urine Yeast 02/21/24 02/21/24 02/21/24 15:16 17:22 19:33 MCV MCH MCHC RDW Plt Count MPV Immature Gran % (Auto) Neut % (Auto) Lymph % (Auto) [place] % (Auto) Eos % (Auto) Baso % (Auto) Lymph # (Auto) [place] # (Auto) Eos # (Auto) Baso # (Auto) Abs Immat Gran (auto) Absolute Neuts (auto) Absolute Nucleated RBC Nucleated RBC % (auto) PT INR VBG pH VBG pCO2 VBG pO2 VBG HCO3 VBG O2 Saturation VBG Base Excess Anion Gap 16 Estim Creat Clear Calc 37.8 Estimated GFR 29 POC Glucose 184 H Random Glucose 198 H Lactic Acid Calcium 9.8 Total Bilirubin AST ALT Alkaline Phosphatase Ammonia 102 H Troponin I High Sens 99.9 H* B-Natriuretic Peptide Total Protein Albumin Urine Color Yellow Urine Appearance Clear Urine pH 5.5 Ur Specific [place] 1.015 Urine Protein Negative Urine Glucose (UA) Negative Urine Ketones Negative Urine Blood Trace H Urine Nitrite Negative Ur Leukocyte Esterase Negative Urine RBC 11-20 H Urine WBC 0-5 Ur Squamous Epith Cells 0-2 Urine Bacteria Trace Hyaline Casts 0-2 Urine Yeast Present 02/21/24 19:59 MCV MCH MCHC RDW Plt Count MPV Immature Gran % (Auto) Neut % (Auto) Lymph % (Auto) [place] % (Auto) Eos % (Auto) Baso % (Auto) Lymph # (Auto) [place] # (Auto) Eos # (Auto) Baso # (Auto) Abs Immat Gran (auto) Absolute Neuts (auto) Absolute Nucleated RBC Nucleated RBC % (auto) PT INR VBG pH VBG pCO2 VBG pO2 VBG HCO3 VBG O2 Saturation VBG Base Excess Anion Gap Estim Creat Clear Calc Estimated GFR POC Glucose 179 H Random Glucose Lactic Acid Calcium Total Bilirubin AST ALT Alkaline Phosphatase Ammonia Troponin I High Sens B-Natriuretic Peptide Total Protein Albumin Urine Color Urine Appearance Urine pH Ur Specific [place] Urine Protein Urine Glucose (UA) Urine Ketones Urine Blood Urine Nitrite Ur Leukocyte Esterase Urine RBC Urine WBC Ur Squamous Epith Cells Urine Bacteria Hyaline Casts Urine Yeast Imaging Radiologist's Impressions: Impressions Head CT 02/21/24 14:04 IMPRESSION: No acute intracranial abnormality. There is moderate microvascular ischemic change. Chest X-Ray 02/21/24 14:12 IMPRESSION: Low lung volumes. It is difficult to exclude a small left lateral lung opacity. The lungs are otherwise clear. Chest CT 02/21/24 17:08 IMPRESSION: 1. Multiple new masslike areas of consolidation are seen in the lungs. These are most likely infectious in etiology consistent with multifocal pneumonia. Follow-up after treatment is recommended to confirm resolution. 2. Chronic left-sided pleural effusion and left basilar atelectasis. 3. Cirrhotic liver with ascites. 4. Other incidental findings as described above. Fleischner guidelines were followed. Abdomen/Pelvis CT 02/21/24 17:09 IMPRESSION: 1. Multiple new masslike areas of consolidation are seen in the lungs. These are most likely infectious in etiology consistent with multifocal pneumonia. Follow-up after treatment is recommended to confirm resolution. 2. Chronic left-sided pleural effusion and left basilar atelectasis. 3. Cirrhotic liver with ascites. 4. Other incidental findings as described above. Fleischner guidelines were followed. Assessment and Plan (1) Encephalopathy, hepatic: Status: Acute (2) Pneumonia: Status: Acute (3) Hyperkalemia: Status: Acute (4) Atrial fibrillation with rapid ventricular response: Status: Acute (5) Elevated troponin: Status: Acute Plan 73-year-old female with a PMH significant for?asthma/COPD overlap syndrome not on home O2, hx of PE on Eliquis, paroxysmal atrial fibrillation, insulin-dependent type 2 diabetes, hypothyroidism, GERD, BELTRAN cirrhosis, and mood disorder presented to the ED from [facility] ([facility]) due to altered mental status. Recently admitted 02/10-02/16 for YORDAN complicated by acute hyponatremia and also noted to have new onset atrial fibrillation with RVR. She will be admitted for further management of acute hepatic encephalopathy and multifocal pneumonia with sepsis. # acute toxic metabolic encephalopathy related to hepatic encephalopathy -ammonia level 103, has been receiving 10 ml lactulose t.i.d. nursing facility -head CT negative for acute intracranial abnormality -increase lactulose to 20 g t.i.d., titrate to achieve 2-3 loose bowel movements daily -Keep NPO for now, NG tube in place . BANQUET PILOT evaluation pending -continue ivf -monitor mentation #Acute multifocal pneumonia with sepsis -leukocytosis 13.3, tachycardic. No lactic acidosis or other end-organ damage. No severe sepsis/shock -IV vancomycin and cefepime (initiated 02/20) -check MRSA nasal screen. Check sputum culture, Legionella antigen, strep pneumo antigen -symptomatic management -follow CBC, cultures # paroxysmal atrial fibrillation with RVR -rapid rate likely related to sepsis/infection as above. Rate low 100s. No indication for IV rate control at this time -continue Eliquis via NG tube for anticoagulation -continue diltiazem # acute hyperkalemia -given 5 units regular insulin x2, calcium gluconate, Lokelma, and Lasix -no peaked T-waves on EKG -follow electrolytes, monitor on telemetry -nephrology consult # elevated troponins -initial 107, repeat 99 -EKG without acute ischemic changes -echocardiogram, cardiology consult -monitor on telemetry # Beltran cirrhosis -complicated by hepatic encephalopathy above -no longer on diuretics due to recent admission with YORDAN # chronic thrombocytopenia -related to cirrhosis # chronic hyponatremia -likely also related to cirrhosis # asthma/COPD overlap -no hypoxia, no acute exacerbation -continue home inhalers, albuterol p.r.n. # insulin-dependent type 2 diabetes with hyperglycemia -history of hyperglycemia that is difficult to control control -patient is NPO, but will continue Lantus 15 units twice daily, increase his diet advances -POC glucose, hold on sliding scale insulin at this time -advanced to diabetic diet # hypothyroidism -continue levothyroxine # mood disorder -continue home medications DVT prophylaxis-Eliquis Full code Med rec pending Patient requires inpatient stay at least 2 midnights for management of acute hepatic encephalopathy requiring lactulose titration and close monitoring of mental status. She will also require IV antibiotics due to multifocal pneumonia with sepsis Quality Stroke Does the patient have a stroke diagnosis?: No VTE Prior VTE?: No VTE Risk Level:: Medical - moderate - high VTE Device Contraindication: Treatment Not Indicated VTE Drug Contraindication: N/A - Med Ordered
[2024-02-21] MEDS: Lactulose 20 GM/30 ML SOLUTION 30 GM NG-TUBE (20:24)
[2024-02-21 20:31] VITALS: BP 167/61; PULSE 81; RESP 16; TEMP 36.8; O2SAT 97
[2024-02-21] MEDS: 0.9 % Sodium Chloride 1,000 ML 80 ML IVCONT (20:46)
[2024-02-21] MEDS: vancomycin/NS 2,000 MG/500 ML PLAST..BAG 250 MG IV (20:46)
--- NOTE | 2024-02-21 21:03 | MHC.EDTECH ---
This tech took over care of patient at 1900,hourly rounds and vitals completed. MRSA swab obtained and sent to lab,belongings list completed and copy placed in chart,call diaz in reach
--- NOTE | 2024-02-21 21:07 | PHA.PROG ---
Admission Date/Time: February 21, 2024 20:04 Indication: Respiratory Weight in k.2 kg Adjusted body weight in Kg: [place] body weight in Kg: Obesity Dosing Indication % IBW: Serum Creatinine - Last 168 Hours 02/21/24 02/21/24 13:04 17:22 Creatinine 1.80 H 1.70 H Estimated CrCl and GFR - Last 168 Hours 02/21/24 02/21/24 13:04 17:22 Estim Creat Clear Calc 35.7 37.8 Estimated GFR 28 29 Vancomycin Loading Dose: 2000mg x 1 Current Vancomycin Dosing Regimen: 750mg Q24H Vancomycin Monitoring using AUC goal of 400 - 600 range with trough as surrogate marker: 466mg/L Date and Time for next Vancomycin Level to be drawn: 02/22 @1900 Pharmacist Comments on Vancomycin Plan: Patient's BMI = 45.9, obese model being used. Renal function is poor, predicted trough of 15.2 mg/L. Will continue to monitor and adjust if renal function improves Vancomycin dosing will take advantage of [employer] as a clinical decision support tool that uses Bayesian modeling to calculate individual patient's pharmacokinetic parameters and forecast the patient's drug concentration time course with the target goal AUC 24 range of 400 - 600 mg/L/hr.
--- NOTE | 2024-02-21 21:08 | MHC.EDTECH ---
POC taken and is 176,RN Marielle made aware
[2024-02-21 21:09] LABS: Glucose, Whole Blood 176 mg/dL (60-115)
--- NOTE | 2024-02-21 22:11 | PHA.MEDREC ---
Pharmacy Consult ? Medication Reconciliation Pharmacy has completed the medication reconciliation. Med list from [facility] [place] was used to complete med rec.
[2024-02-21] MEDS: Insulin Glargine,Hum.rec.anlog 100 UNIT/ML 10 ML VIAL 15 UNIT SUBCUT (22:33)
[2024-02-21 23:19] VITALS: BP 138/70; PULSE 104; RESP 20; TEMP 35.8; O2SAT 92
[2024-02-22] VITALS (7 sets, daily range): BP systolic 140–185; BP diastolic 70–94; PULSE 83–124; RESP 16–24; TEMP 35.7–36.6; O2SAT 94–96
[2024-02-22] MEDS: 0.9 % Sodium Chloride Flush 3 ML SYRINGE IVFLUSH ×3 (00:12→16:45)
[2024-02-22 01:13] LABS: Anion Gap 16 (12-20); Blood Urea Nitrogen 101 mg/dL (9-16); Calcium 9.5 mg/dL (8.4-10.2); Carbon Dioxide 22 mmol/L (22-29); Chloride 100 mmol/L (96-108); Estimated Glomerular Filt Rate 30; Glucose Random 194 mg/dL (60-115); Magnesium 3.1 mg/dL (1.6-2.6); Potassium 4.8 mmol/L (3.3-5.1); Sodium 133 mmol/L (135-145)
[2024-02-22] MEDS: cefEPime HCl 2 GM in 0.9 % Sodium Chloride 50 ML IV ×2 (02:00→13:39)
[2024-02-22 06:57] LABS: Glucose, Whole Blood 156 mg/dL (60-115)
[2024-02-22] MEDS: Apixaban 5 MG TABLET NG-TUBE (08:16)
[2024-02-22] MEDS: 0.9 % Sodium Chloride 1,000 ML 80 ML IVCONT (08:16)
[2024-02-22] MEDS: Lactulose 20 GM/30 ML SOLUTION NG-TUBE (08:17)
[2024-02-22 08:27] LABS: MANUAL DIFF FLAG NO
[2024-02-22 08:31] LABS: Basophils Percent Auto 0.1 % (0-2); Eosinophils Percent Auto 0.3 % (0-4); Hematocrit 37.2 % (37.0-47.0); Hemoglobin 12.2 g/dl (12.0-16.0); Imm Gran Abs Auto 0.04 X10*3/uL (0.00-0.03); Imm Gran Pct Auto 0.5 % (0.0-0.4); Lymphocytes Absolute Auto 0.6 X10*3/uL (1.2-4.9); Lymphocytes Percent Auto 6.3 % (20-40); Mean Corpuscular HGB Conc 32.8 g/dl (31.0-35.0); Mean Corpuscular Hemoglobin 28.6 pg (27.0-33.0); Mean Corpuscular Volume 87.3 fL (80.0-98.0); Mean Platelet Volume 11.7 fL (9.4-12.3); Monocytes Absolute Auto 1.1 X10*3/uL (0.1-1.2); Monocytes Percent Auto 11.8 % (2-11); Neutrophils Absolute Auto 7.2 x10*3/uL (2.0-8.3); Platelet Count 118 X10*3/uL (160-400); Red Blood Count 4.26 X10*6/uL (4.20-5.50); Red Cell Distribution Width 18.3 % (11.0-16.0); White Blood Count 8.9 X10*3/uL (4.8-10.8)
[2024-02-22 08:44] LABS: Anion Gap 17 (12-20); Blood Urea Nitrogen 96 mg/dL (9-16); Calcium 9.3 mg/dL (8.4-10.2); Carbon Dioxide 22 mmol/L (22-29); Chloride 101 mmol/L (96-108); Creatinine Clr Calc Pharmacy 41.1; Estimated Glomerular Filt Rate 33; Glucose Random 158 mg/dL (60-115); Potassium 4.5 mmol/L (3.3-5.1); Sodium 135 mmol/L (135-145)
--- NOTE | 2024-02-22 09:47 | MHC.CM.PN ---
Addendum entered by Ramonita Wilkerson 02/22/24 09:54: Per [facility] rn admission, pt is not a bed hold there. Original Note: IMM 02/21. Pt with hepatic encephalopathy, and unable to partake in CM intake assessment, all questions answered and IMM addressed with sister/HCP Glenys at [phone]. Pt is a readmission, she came from [facility], was there for [facility]. DCP is for pt to return to [facility] when medically cleared. Pt uses a cane, wheelchair, and a walker. Prior to being at [facility] pt lived at home with her sister and [id number] where she received MOW's but no other services. Pt will transport via BLS if she returns to [facility]. PCP: Dr. Aydin Leo
[2024-02-22 10:16] LABS: MRSA Nasal PCR NEGATIVE (Negative); SA Nasal PCR NEGATIVE (Negative)
--- NOTE | 2024-02-22 11:04 | P.CONCA_ITS ---
History of Present Illness History of Present Illness Date of Service: 02/22/24 Requesting physician: Dorina Gutierrez Consult reason: troponin elevation Chief complaint: hepatic encephalopathy, hyperkalemia, pneumonia Narrative: I was consulted to see Jennifer in cardiology consultation today for elevated troponin. [facility] because of altered mental status. Sister was present bedside is pretty upset about patient's overall condition and said that she has been back and forth from the hospital quite a bit. Patient noted to have elevated ammonia and altered mental status consistent with hepatic encephalopathy but also noted to have pneumonia. Patient on EKG yesterday was noted to have sinus rhythm but on the monitor had intermittent episodes of atrial fibrillation. She is already on oral anticoagulation Eliquis for pulmonary embolism. She is noted to have leukocytosis and patient seems to still be obtunded. The sister says that there is no significant improvement in overall mental status. Cardiology consult was sought as troponin was slightly elevated. History can not be obtained from the patient. There is no reported history of chest pain. No significant EKG changes that would suggest acute ischemia. Patient has prior history of atrial fibrillation and acute kidney injury, recently in the hospital for the same. Review of Systems 2 Review of Systems: Yes Unobtainable due to mental status PMFSH Past Medical History Medical History Asthma Bacteremia Morbid (severe) obesity due to excess calories Asthma-COPD overlap syndrome Hypothyroidism Pulmonary embolism Depression Hyperlipidemia Rheumatoid arthritis Hypertension Diabetes mellitus, type 2 Social History Social History Household Members: Unknown / Unable to assess Household Members Other:: sister and brother Housing: Unknown / Unable to assess Do you presently have visiting nurse or other home services: No (Meals on Wheels) Unable to assess alcohol history related to: Unable to respond Alcohol intake: never Patient Tobacco Use Status: Never used Tobacco Advance Directives Date on File: 06/07/23 service: No Current occupational status: disabled Meds Allergies Allergy/AdvReac Type Severity Reaction Status Date / Time rosuvastatin [From CRESTOR] Allergy Unknown Unknown Verified 02/21/24 12:51 empagliflozin Allergy Unknown Verified 02/21/24 12:51 [From Jardiance] piperacillin [From Zosyn] AdvReac Intermediate Vomiting Verified 02/21/24 12:51 tazobactam [From Zosyn] AdvReac Intermediate Vomiting Verified 02/21/24 12:51 Active Medications: Current Medications Acetaminophen (Acetaminophen 325 Mg Tablet) 650 mg PO Q6H PRN PRN Reason: Fever Acetaminophen (Acetaminophen 325 Mg Tablet) 650 mg PO Q6H PRN PRN Reason: Pain, Mild (Pain Scale 1-3) Acetaminophen (Acetaminophen 325 Mg Tablet) 650 mg PO Q6H PRN PRN Reason: Headache Apixaban (Apixaban 5 Mg Tablet) 5 mg NG-TUBE BID [facility] Last Admin: 02/22/24 08:16 Dose: 5 mg Calcium Carbonate (Calcium Carbonate 750 Mg Tab.Chew) 750 mg PO Q6H PRN PRN Reason: Heartburn Glucose (Glucose Gel 15 Gm Gel..Gram.) 15 gm PO Q15M PRN; Protocol PRN Reason: per Hypoglycemia Standing Ord. Dextrose (D10) 250 mls @ 750 mls/hr IV Q15M PRN; Protocol PRN Reason: per Hypoglycemia Standing Ord. Sodium Chloride (Ns) 1,000 mls @ 80 mls/hr IVCONT .[id number] [facility] Last Admin: 02/22/24 08:16 Dose: 80 mls/hr Cefepime HCl 2 gm/ Sodium (Chloride) 50 mls @ 100 mls/hr IV Q12H [facility] Last Infusion: 02/22/24 02:47 Dose: Infused Vancomycin HCl 750 mg/ Sodium (Chloride) 265 mls @ 265 mls/hr IV Q24H [facility] Insulin Glargine (Insulin Glargine,Hum.Rec.Anlog 100 Unit/Ml 10 Ml Vial) 15 unit SUBCUT BID [facility] Last Admin: 02/22/24 08:16 Dose: Not Given Lactulose (Lactulose 20 Gm/30 Ml Solution) 30 gm NG-TUBE TID [facility] Magnesium Hydroxide (Milk Of Magnesia 30 Ml Oral.Susp) 30 ml PO DAILY PRN PRN Reason: Constipation Melatonin (Melatonin 3 Mg Tablet) 6 mg PO BEDTIME PRN PRN Reason: Insomnia Pharmacy Consult (Consult Rx Vancomycin Dosing) 1 each MISCELLANE DAILY PRN PRN Reason: Consult order Polyethylene Glycol (Polyethylene Glycol 3350 17 Gm Powd.Pack) 17 gm PO DAILY PRN PRN Reason: Constipation Sodium Chloride (0.9 % Sodium Chloride Flush 3 Ml Syringe) 3 ml IVFLUSH QSHIFT [facility] Last Admin: 02/22/24 08:17 Dose: 3 ml Home Medications ?Medication ?Instructions ?Recorded ?Confirmed ?Last Taken ?Type albuterol sulfate 90 mcg/actuation 2 puff inhalation Q4H PRN 01/20/23 02/21/24 01/19/23 History aerosol inhaler Shortness Of Breath Or Wheezing apixaban 5 mg tablet (Eliquis) 5 mg PO BID 01/20/23 02/21/24 11/22/23 History calcium carbonate 600 mg-vitamin 1 tab PO DAILY 01/20/23 02/21/24 11/22/23 History D3 5 mcg (200 unit) tablet citalopram 20 mg tablet 20 mg PO DAILY 01/20/23 02/21/24 11/22/23 History ferrous sulfate 325 mg (65 mg 325 mg PO DAILY 01/20/23 02/21/24 11/22/23 History iron) tablet levothyroxine 50 mcg tablet 50 mcg PO DAILY@0600 01/20/23 02/21/24 11/22/23 History montelukast 10 mg tablet 10 mg PO BEDTIME 01/20/23 02/21/24 11/21/23 History insulin glargine 100 unit/mL (3 50 unit subcut BID 06/01/23 02/21/24 11/22/23 History mL) subcutaneous pen (Basaglar KwkekePen U-100 Insulin) docusate sodium 100 mg capsule 100 mg PO BID PRN Constipation 07/20/23 02/21/24 11/22/23 History folic acid 1 mg tablet 1 mg PO DAILY 07/20/23 02/21/24 11/22/23 History adalimumab 40 mg/0.8 mL 40 mg subcut Q14D 11/22/23 02/21/24 02/18/24 History subcutaneous syringe kit (Humira) fluticasone 500 mcg-salmeterol 50 1 ea inhalation BID 11/22/23 02/21/24 11/22/23 History mcg/dose blistr powdr for inhalation (Wixela Inhub) lactulose 10 gram/15 mL oral 10 ml PO TID 02/07/24 02/21/24 Unknown History solution (Enulose) simvastatin 20 mg tablet 20 mg PO BEDTIME 02/07/24 02/21/24 Unknown History acetaminophen 325 mg tablet 650 mg PO Q8H PRN Pain 02/21/24 02/21/24 Unknown History insulin lispro 100 unit/mL 1 sliding scale dose subcut TIDAC 02/21/24 02/21/24 Unknown History subcutaneous pen (Humalog KwikPen (U-100) Insulin) ipratropium 0.5 mg-albuterol 3 mg 3 ml inhalation QID 02/21/24 02/21/24 Unknown History (2.5 mg base)/3 mL nebulization soln polyethylene glycol 3350 17 gram 17 g PO DAILY 02/21/24 02/21/24 Unknown History oral powder packet (Miralax) sennosides 8.6 mg tablet (senna) 17.2 mg PO BID 02/21/24 02/21/24 Unknown History Physical Exam 2 Vital Signs: Vital Signs: Last Vital Signs Temp 96.8 F 02/22/24 10:54 Pulse 83 02/22/24 10:54 Resp 20 02/22/24 10:54 BP 180/81 H 02/22/24 10:54 Pulse Ox 95 02/22/24 10:54 O2 Del Method Room Air 02/22/24 10:54 O2 Flow Rate 2 02/21/24 12:32 Oxygen Flow Rate 2 02/21/24 12:42 BMI result Body Mass Index 45.9 Const: General: patient obtunded Nutritional Appearance: obese morbidly obese Orientation/consciousness: patient obtunded HEENT: Head: Yes normocephalic and Yes atraumatic Neck: Neck: Yes trachea midline, Yes supple and Yes no JVD Resp: Effort & Inspection: decreased respiratory effort Auscultation: no rales, no wheezes and diminished lung sounds Cardio: Jugular venous distension: no JVD Rate: tachycardic Rhythm: a bnormal rhythm with ectopic beats Heart sounds: S1 normal heart sound present, S2 normal heart sound present, no click, no gallops and Murmur heart sound present systolic GI: Inspection: Yes obesity Auscultation: normal bowel sounds Skin: General skin exam: no rashes or lesions noted and ecchymosis Neuro: General: patient obtunded Extrem: General: No no clubbing, cyanosis or edema Objective Labs and Meds 02/22/24 07:50 02/22/24 07:50 Lab results: Laboratory Results - last 24 hr 02/21/24 02/21/24 02/21/24 12:30 13:04 13:37 WBC 13.3 H RBC 4.05 L Hgb 11.9 L Hct 35.5 L MCV 87.7 MCH 29.4 MCHC 33.5 RDW 18.4 H Plt Count 138 L MPV 10.8 Immature Gran % (Auto) 0.3 Neut % (Auto) 80.5 H Lymph % (Auto) 7.8 L [place] % (Auto) 10.9 Eos % (Auto) 0.4 Baso % (Auto) 0.1 Lymph # (Auto) 1.0 L [place] # (Auto) 1.4 H Eos # (Auto) 0.1 Baso # (Auto) 0.0 Abs Immat Gran (auto) 0.04 H Absolute Neuts (auto) 10.7 H Absolute Nucleated RBC 0.000 Nucleated RBC % (auto) 0.0 PT 15.3 H INR 1.3 H VBG pH 7.46 H VBG pCO2 39 VBG pO2 66 VBG HCO3 28 H VBG O2 Saturation 90.0 VBG Base Excess 4.1 Sodium 129 L Potassium 6.2 H* Chloride 94 L Carbon Dioxide 22 Anion Gap 19 BUN 110 H Creatinine 1.80 H Estim Creat Clear Calc 35.7 Estimated GFR 28 POC Glucose 265 H Random Glucose 267 H Lactic Acid 1.7 Calcium 9.3 Magnesium Total Bilirubin 2.1 H AST 60 H ALT 89 H Alkaline Phosphatase 213 H Ammonia Troponin I High Sens 107.3 H* D B-Natriuretic Peptide 199 H Total Protein 7.2 Albumin 2.8 L Urine Color Urine Appearance Urine pH Ur Specific [place] Urine Protein Urine Glucose (UA) Urine Ketones Urine Blood Urine Nitrite Ur Leukocyte Esterase Urine RBC Urine WBC Ur Squamous Epith Cells Urine Bacteria Hyaline Casts Urine Yeast Nasal Screen MRSA (PCR) Nasal S. aureus Screen Nasal MRSA/S.aureus Interp 02/21/24 02/21/24 02/21/24 15:16 17:22 19:33 WBC RBC Hgb Hct MCV MCH MCHC RDW Plt Count MPV Immature Gran % (Auto) Neut % (Auto) Lymph % (Auto) [place] % (Auto) Eos % (Auto) Baso % (Auto) Lymph # (Auto) [place] # (Auto) Eos # (Auto) Baso # (Auto) Abs Immat Gran (auto) Absolute Neuts (auto) Absolute Nucleated RBC Nucleated RBC % (auto) PT INR VBG pH VBG pCO2 VBG pO2 VBG HCO3 VBG O2 Saturation VBG Base Excess Sodium 131 L Potassium 6.0 H* Chloride 99 Carbon Dioxide 22 Anion Gap 16 BUN 105 H Creatinine 1.70 H Estim Creat Clear Calc 37.8 Estimated GFR 29 POC Glucose 184 H Random Glucose 198 H Lactic Acid Calcium 9.8 Magnesium Total Bilirubin AST ALT Alkaline Phosphatase Ammonia 102 H Troponin I High Sens 99.9 H* B-Natriuretic Peptide Total Protein Albumin Urine Color Yellow Urine Appearance Clear Urine pH 5.5 Ur Specific [place] 1.015 Urine Protein Negative Urine Glucose (UA) Negative Urine Ketones Negative Urine Blood Trace H Urine Nitrite Negative Ur Leukocyte Esterase Negative Urine RBC 11-20 H Urine WBC 0-5 Ur Squamous Epith Cells 0-2 Urine Bacteria Trace Hyaline Casts 0-2 Urine Yeast Present Nasal Screen MRSA (PCR) Nasal S. aureus Screen Nasal MRSA/S.aureus Interp 02/21/24 02/21/24 02/21/24 19:59 20:56 21:01 WBC RBC Hgb Hct MCV MCH MCHC RDW Plt Count MPV Immature Gran % (Auto) Neut % (Auto) Lymph % (Auto) [place] % (Auto) Eos % (Auto) Baso % (Auto) Lymph # (Auto) [place] # (Auto) Eos # (Auto) Baso # (Auto) Abs Immat Gran (auto) Absolute Neuts (auto) Absolute Nucleated RBC Nucleated RBC % (auto) PT INR VBG pH VBG pCO2 VBG pO2 VBG HCO3 VBG O2 Saturation VBG Base Excess Sodium Potassium Chloride Carbon Dioxide Anion Gap BUN Creatinine Estim Creat Clear Calc Estimated GFR POC Glucose 179 H 176 H Random Glucose Lactic Acid Calcium Magnesium Total Bilirubin AST ALT Alkaline Phosphatase Ammonia Troponin I High Sens B-Natriuretic Peptide Total Protein Albumin Urine Color Urine Appearance Urine pH Ur Specific [place] Urine Protein Urine Glucose (UA) Urine Ketones Urine Blood Urine Nitrite Ur Leukocyte Esterase Urine RBC Urine WBC Ur Squamous Epith Cells Urine Bacteria Hyaline Casts Urine Yeast Nasal Screen MRSA (PCR) NEGATIVE Nasal S. aureus Screen NEGATIVE Nasal MRSA/S.aureus Interp SEE NOTE 02/22/24 02/22/24 02/22/24 00:40 06:52 07:50 WBC 8.9 RBC 4.26 Hgb 12.2 Hct 37.2 MCV 87.3 MCH 28.6 MCHC 32.8 RDW 18.3 H Plt Count 118 L MPV 11.7 Immature Gran % (Auto) 0.5 H Neut % (Auto) 81.0 H Lymph % (Auto) 6.3 L [place] % (Auto) 11.8 H Eos % (Auto) 0.3 Baso % (Auto) 0.1 Lymph # (Auto) 0.6 L [place] # (Auto) 1.1 Eos # (Auto) 0.0 Baso # (Auto) 0.0 Abs Immat Gran (auto) 0.04 H Absolute Neuts (auto) 7.2 Absolute Nucleated RBC 0.000 Nucleated RBC % (auto) 0.0 PT INR VBG pH VBG pCO2 VBG pO2 VBG HCO3 VBG O2 Saturation VBG Base Excess Sodium 133 L 135 Potassium 4.8 4.5 Chloride 100 101 Carbon Dioxide 22 22 Anion Gap 16 17 BUN 101 H 96 H Creatinine 1.69 H 1.56 H Estim Creat Clear Calc 38.0 41.1 Estimated GFR 30 33 POC Glucose 156 H Random Glucose 194 H 158 H Lactic Acid Calcium 9.5 9.3 Magnesium 3.1 H Total Bilirubin AST ALT Alkaline Phosphatase Ammonia Troponin I High Sens B-Natriuretic Peptide Total Protein Albumin Urine Color Urine Appearance Urine pH Ur Specific [place] Urine Protein Urine Glucose (UA) Urine Ketones Urine Blood Urine Nitrite Ur Leukocyte Esterase Urine RBC Urine WBC Ur Squamous Epith Cells Urine Bacteria Hyaline Casts Urine Yeast Nasal Screen MRSA (PCR) Nasal S. aureus Screen Nasal MRSA/S.aureus Interp Imaging Radiologist's impression: Impressions Head CT 02/21/24 14:04 IMPRESSION: No acute intracranial abnormality. There is moderate microvascular ischemic change. Chest X-Ray 02/21/24 14:12 IMPRESSION: Low lung volumes. It is difficult to exclude a small left lateral lung opacity. The lungs are otherwise clear. Chest CT 02/21/24 17:08 IMPRESSION: 1. Multiple new masslike areas of consolidation are seen in the lungs. These are most likely infectious in etiology consistent with multifocal pneumonia. Follow-up after treatment is recommended to confirm resolution. 2. Chronic left-sided pleural effusion and left basilar atelectasis. 3. Cirrhotic liver with ascites. 4. Other incidental findings as described above. Fleischner guidelines were followed. Abdomen/Pelvis CT 02/21/24 17:09 IMPRESSION: 1. Multiple new masslike areas of consolidation are seen in the lungs. These are most likely infectious in etiology consistent with multifocal pneumonia. Follow-up after treatment is recommended to confirm resolution. 2. Chronic left-sided pleural effusion and left basilar atelectasis. 3. Cirrhotic liver with ascites. 4. Other incidental findings as described above. Fleischner guidelines were followed. Chest X-Ray 02/21/24 19:43 IMPRESSION: The tip of the enteric tube terminates over the stomach. Heart and lungs are stable in appearance. Assessment and Plan (1) Elevated troponin: Status: Acute Patient with elevated troponin, drawn for unclear reason possibly due to altered mental status. There is no reported chest pain or EKG changes of ischemia. She is high likelihood of having underlying coronary artery disease although this presentation does appear to be secondary to primary acute coronary syndrome. Most likely secondary to acute medical illness including encephalopathy as well as pneumonia. Continue to manage for underlying medical issues. No need for IV heparin. Consider metoprolol therapy 25 mg b.i.d.. Eventually when she is clinically improved as an outpatient will require ischemic workup. (2) Paroxysmal atrial fibrillation: Status: Acute Paroxysmal atrial fibrillation with intermittent episodes most likely related to acute medical illness. Would suggest to start metoprolol as above. Already on Eliquis therapy which can be continued. Avoidance of stimulants was discussed. Agree with Xopenex for bronchodilators therapy if needed. Continue supportive care. Will follow up as need be. Thank you for allowing me to partake in her care Procedures Date of Service Date of Service: 02/22/24
--- NOTE | 2024-02-22 12:09 | MHC.SLORD ---
Speech Language Pathology Order Status: Pt not appropriate for swallow evaluation at this time per RN. Observed with NG tube in place. OBSTETRICIAN GYNECOLOGIST will continue to follow.
--- NOTE | 2024-02-22 12:58 | P.CONNP_ITS ---
History of Present Illness Reason for Consult Consult date: 02/22/24 Chief Complaint Chief complaint: hepatic encephalopathy, hyperkalemia, pneumonia History of Present Illness Narrative: 73-year-old female with a PMH significant for?asthma/COPD overlap syndrome not on home O2, hx of PE on Eliquis, paroxysmal atrial fibrillation, insulin- dependent type 2 diabetes, hypothyroidism, GERD, GRIMES cirrhosis, and mood disorder presented to the ED from [facility] ([facility] due to altered mental status. Per her niece, who is at bedside and helps to assist with history as patient is obtunded, reports yesterday the patient was conversive and coherent though was complaining of shortness of breath. Per facility report, pt has been receiving lactulose 10 g t.i.d., though reason for administration is p.r.n. constipation. Per nursing facility, pt has been afebrile without hypoxia. No respiratory symptoms reported and no noted aspiration. At the time of admission she was found to have YORDAN with hyperkalemia. She was on spironolactone. Spironolactone was stopped and hypokalemia was corrected medically. Review of Systems Review of Systems Yes Unobtainable due to mental status PMFSH Past Medical History Medical History Asthma Bacteremia Morbid (severe) obesity due to excess calories Asthma-COPD overlap syndrome Hypothyroidism Pulmonary embolism Depression Hyperlipidemia Rheumatoid arthritis Hypertension Diabetes mellitus, type 2 Social History Social History Household Members: Unknown / Unable to assess Household Members Other:: sister and brother Housing: Unknown / Unable to assess Do you presently have visiting nurse or other home services: No (Meals on Wheels) Unable to assess alcohol history related to: Unable to respond Alcohol intake: never Patient Tobacco Use Status: Never used Tobacco Advance Directives Date on File: 06/07/23 service: No Current occupational status: disabled Meds Allergies Allergy/AdvReac Type Severity Reaction Status Date / Time rosuvastatin [From CRESTOR] Allergy Unknown Unknown Verified 02/21/24 12:51 empagliflozin Allergy Unknown Verified 02/21/24 12:51 [From Jardiance] piperacillin [From Zosyn] AdvReac Intermediate Vomiting Verified 02/21/24 12:51 tazobactam [From Zosyn] AdvReac Intermediate Vomiting Verified 02/21/24 12:51 Active Medications: Current Medications Acetaminophen (Acetaminophen 325 Mg Tablet) 650 mg PO Q6H PRN PRN Reason: Fever Acetaminophen (Acetaminophen 325 Mg Tablet) 650 mg PO Q6H PRN PRN Reason: Pain, Mild (Pain Scale 1-3) Acetaminophen (Acetaminophen 325 Mg Tablet) 650 mg PO Q6H PRN PRN Reason: Headache Apixaban (Apixaban 5 Mg Tablet) 5 mg NG-TUBE BID [facility] Last Admin: 02/22/24 08:16 Dose: 5 mg Calcium Carbonate (Calcium Carbonate 750 Mg Tab.Chew) 750 mg PO Q6H PRN PRN Reason: Heartburn Glucose (Glucose Gel 15 Gm Gel..Gram.) 15 gm PO Q15M PRN; Protocol PRN Reason: per Hypoglycemia Standing Ord. Dextrose (D10) 250 mls @ 750 mls/hr IV Q15M PRN; Protocol PRN Reason: per Hypoglycemia Standing Ord. Sodium Chloride (Ns) 1,000 mls @ 80 mls/hr IVCONT .[id number] [facility] Last Admin: 02/22/24 08:16 Dose: 80 mls/hr Cefepime HCl 2 gm/ Sodium (Chloride) 50 mls @ 100 mls/hr IV Q12H [facility] Last Infusion: 02/22/24 02:47 Dose: Infused Vancomycin HCl 750 mg/ Sodium (Chloride) 265 mls @ 265 mls/hr IV Q24H [facility] Insulin Glargine (Insulin Glargine,Hum.Rec.Anlog 100 Unit/Ml 10 Ml Vial) 15 unit SUBCUT BID [facility] Last Admin: 02/22/24 08:16 Dose: Not Given Lactulose (Lactulose 20 Gm/30 Ml Solution) 30 gm NG-TUBE TID [facility] Magnesium Hydroxide (Milk Of Magnesia 30 Ml Oral.Susp) 30 ml PO DAILY PRN PRN Reason: Constipation Melatonin (Melatonin 3 Mg Tablet) 6 mg PO BEDTIME PRN PRN Reason: Insomnia Pharmacy Consult (Consult Rx Vancomycin Dosing) 1 each MISCELLANE DAILY PRN PRN Reason: Consult order Polyethylene Glycol (Polyethylene Glycol 3350 17 Gm Powd.Pack) 17 gm PO DAILY PRN PRN Reason: Constipation Sodium Chloride (0.9 % Sodium Chloride Flush 3 Ml Syringe) 3 ml IVFLUSH QSHIFT [facility] Last Admin: 02/22/24 08:17 Dose: 3 ml Home Medications ?Medication ?Instructions ?Recorded ?Confirmed ?Last Taken ?Type albuterol sulfate 90 mcg/actuation 2 puff inhalation Q4H PRN 01/20/23 02/21/24 01/19/23 History aerosol inhaler Shortness Of Breath Or Wheezing apixaban 5 mg tablet (Eliquis) 5 mg PO BID 01/20/23 02/21/24 11/22/23 History calcium carbonate 600 mg-vitamin 1 tab PO DAILY 01/20/23 02/21/24 11/22/23 History D3 5 mcg (200 unit) tablet citalopram 20 mg tablet 20 mg PO DAILY 01/20/23 02/21/24 11/22/23 History ferrous sulfate 325 mg (65 mg 325 mg PO DAILY 01/20/23 02/21/24 11/22/23 History iron) tablet levothyroxine 50 mcg tablet 50 mcg PO DAILY@0600 01/20/23 02/21/24 11/22/23 History montelukast 10 mg tablet 10 mg PO BEDTIME 01/20/23 02/21/24 11/21/23 History insulin glargine 100 unit/mL (3 50 unit subcut BID 06/01/23 02/21/24 11/22/23 History mL) subcutaneous pen (Rosalinoaglar Nohemy U-100 Insulin) docusate sodium 100 mg capsule 100 mg PO BID PRN Constipation 07/20/23 02/21/24 11/22/23 History folic acid 1 mg tablet 1 mg PO DAILY 07/20/23 02/21/24 11/22/23 History adalimumab 40 mg/0.8 mL 40 mg subcut Q14D 11/22/23 02/21/24 02/18/24 History subcutaneous syringe kit (Humira) fluticasone 500 mcg-salmeterol 50 1 ea inhalation BID 11/22/23 02/21/24 11/22/23 History mcg/dose blistr powdr for inhalation (Wixela Inhub) lactulose 10 gram/15 mL oral 10 ml PO TID 02/07/24 02/21/24 Unknown History solution (Enulose) simvastatin 20 mg tablet 20 mg PO BEDTIME 02/07/24 02/21/24 Unknown History acetaminophen 325 mg tablet 650 mg PO Q8H PRN Pain 02/21/24 02/21/24 Unknown History insulin lispro 100 unit/mL 1 sliding scale dose subcut TIDAC 02/21/24 02/21/24 Unknown History subcutaneous pen (Humalog KwikPen (U-100) Insulin) ipratropium 0.5 mg-albuterol 3 mg 3 ml inhalation QID 02/21/24 02/21/24 Unknown History (2.5 mg base)/3 mL nebulization soln polyethylene glycol 3350 17 gram 17 g PO DAILY 02/21/24 02/21/24 Unknown History oral powder packet (Miralax) sennosides 8.6 mg tablet (senna) 17.2 mg PO BID 02/21/24 02/21/24 Unknown History Physical Exam Vital Signs: Last Vital Signs Temp 96.8 F 02/22/24 10:54 Pulse 83 02/22/24 10:54 Resp 20 02/22/24 10:54 BP 180/81 H 02/22/24 10:54 Pulse Ox 95 02/22/24 10:54 O2 Del Method Room Air 02/22/24 10:54 O2 Flow Rate 2 02/21/24 12:32 Oxygen Flow Rate 2 02/21/24 12:42 BMI result Body Mass Index 45.9 Const General: ill appearing Neck Neck: Yes supple Resp Auscultation: rhonchi Cardio Palpation: no palpable S3 Heart sounds: no rubs GI Palpation (GI): Soft to palpation Auscultation: normal bowel sounds Neuro Motor exam (neuro): no asterixis Results Lab Results 02/22/24 07:50 02/22/24 07:50 Lab results: Chemistry 02/21/24 02/21/24 02/22/24 13:04 17:22 00:40 Sodium 129 L 131 L 133 L Potassium 6.2 H* 6.0 H* 4.8 Carbon Dioxide 22 22 22 BUN 110 H 105 H 101 H Creatinine 1.80 H 1.70 H 1.69 H Calcium 9.3 9.8 9.5 02/22/24 07:50 Sodium 135 Potassium 4.5 Carbon Dioxide 22 BUN 96 H Creatinine 1.56 H Calcium 9.3 Hematology 02/21/24 02/22/24 13:04 07:50 WBC 13.3 H 8.9 Hgb 11.9 L 12.2 Plt Count 138 L 118 L Urinalysis 02/21/24 15:16 Urine Color Yellow Urine Appearance Clear Urine pH 5.5 Ur Specific [place] 1.015 Urine Protein Negative Urine Glucose (UA) Negative Urine Ketones Negative Urine Blood Trace H Urine Nitrite Negative Ur Leukocyte Esterase Negative Urine RBC 11-20 H Urine WBC 0-5 Ur Squamous Epith Cells 0-2 Hyaline Casts 0-2 Assessment and Plan (1) Hyperkalemia: Status: Acute (2) YORDAN (acute kidney injury): Status: Acute Plan YORDAN superimposed on CKD due to hypoperfusion. Disproportionate elevation in the BUN is due to steroids. Currently she is off steroids. Creatinine is gradually trending down. No indication for dialysis BUN should gradually decrease since produce has been discontinued. Hyperkalemia due to the combination of spironolactone setting of renal insufficiency. For now I will hold off on using spironolactone. Keep on low-potassium diet and use Lokelma as needed. Hepatic encephalopathy Lactulose to correct hyperammonemia Procedures Date of Service Date of Service: 02/22/24
[2024-02-22] MEDS: Lactulose 20 GM/30 ML SOLUTION 30 GM G-TUBE (13:36)
[2024-02-22] MEDS: Lactulose 20 GM/30 ML SOLUTION 30 GM NG-TUBE ×2 (13:38→18:12)
--- NOTE | 2024-02-22 15:33 | W.PM.CCCN ---
History of Present Illness Data of Consult Service Date: 02/22/24 Primary Care Provider: Aydin Leo MD HPI Reason for consult: Altered mental status 73-year-old lady with PMH of asthma/COPD overlap syndrome not on home O2, hx of PE on Eliquis, paroxysmal atrial fibrillation, insulin-dependent type 2 diabetes, hypothyroidism, GERD, GRIMES cirrhosis, and mood disorder recently discharged from the hospital to custodial is readmitted to the hospital due to encephalopathy due to hepatic encephalopathy. She is significantly altered not responding well to lactulose so MICU consulted Review of Systems Review of Systems: Unable to obtain as patient is altered and obtunded [facility] Past Medical History Medical History Asthma Bacteremia Morbid (severe) obesity due to excess calories Asthma-COPD overlap syndrome Hypothyroidism Pulmonary embolism Depression Hyperlipidemia Rheumatoid arthritis Hypertension Diabetes mellitus, type 2 Social History Social History Household Members: Unknown / Unable to assess Household Members Other:: sister and brother Housing: Unknown / Unable to assess Do you presently have visiting nurse or other home services: No (Meals on Wheels) Unable to assess alcohol history related to: Unable to respond Alcohol intake: never Patient Tobacco Use Status: Never used Tobacco Advance Directives Date on File: 06/07/23 service: No Current occupational status: disabled Meds Allergies Allergy/AdvReac Type Severity Reaction Status Date / Time rosuvastatin [From CRESTOR] Allergy Unknown Unknown Verified 02/21/24 12:51 empagliflozin Allergy Unknown Verified 02/21/24 12:51 [From Jardiance] piperacillin [From Zosyn] AdvReac Intermediate Vomiting Verified 02/21/24 12:51 tazobactam [From Zosyn] AdvReac Intermediate Vomiting Verified 02/21/24 12:51 Active Medications: Current Medications Acetaminophen (Acetaminophen 325 Mg Tablet) 650 mg PO Q6H PRN PRN Reason: Fever Acetaminophen (Acetaminophen 325 Mg Tablet) 650 mg PO Q6H PRN PRN Reason: Pain, Mild (Pain Scale 1-3) Acetaminophen (Acetaminophen 325 Mg Tablet) 650 mg PO Q6H PRN PRN Reason: Headache Apixaban (Apixaban 5 Mg Tablet) 5 mg NG-TUBE BID [facility] Last Admin: 02/22/24 08:16 Dose: 5 mg Calcium Carbonate (Calcium Carbonate 750 Mg Tab.Chew) 750 mg PO Q6H PRN PRN Reason: Heartburn Glucose (Glucose Gel 15 Gm Gel..Gram.) 15 gm PO Q15M PRN; Protocol PRN Reason: per Hypoglycemia Standing Ord. Hydralazine HCl (Hydralazine Hcl 20 Mg/Ml Vial) 10 mg IVPUSH Q6H PRN; Protocol PRN Reason: htn Dextrose (D10) 250 mls @ 750 mls/hr IV Q15M PRN; Protocol PRN Reason: per Hypoglycemia Standing Ord. Sodium Chloride (Ns) 1,000 mls @ 80 mls/hr IVCONT .[id number] [facility] Last Admin: 02/22/24 08:16 Dose: 80 mls/hr Cefepime HCl 2 gm/ Sodium (Chloride) 50 mls @ 100 mls/hr IV Q12H [facility] Last Infusion: 02/22/24 14:17 Dose: Infused Vancomycin HCl 750 mg/ Sodium (Chloride) 265 mls @ 265 mls/hr IV Q24H [facility] Insulin Glargine (Insulin Glargine,Hum.Rec.Anlog 100 Unit/Ml 10 Ml Vial) 15 unit SUBCUT BID [facility] Last Admin: 02/22/24 08:16 Dose: Not Given Lactulose (Lactulose 20 Gm/30 Ml Solution) 30 gm NG-TUBE TID [facility] Last Admin: 02/22/24 13:38 Dose: 30 gm Magnesium Hydroxide (Milk Of Magnesia 30 Ml Oral.Susp) 30 ml PO DAILY PRN PRN Reason: Constipation Melatonin (Melatonin 3 Mg Tablet) 6 mg PO BEDTIME PRN PRN Reason: Insomnia Pharmacy Consult (Consult Rx Vancomycin Dosing) 1 each MISCELLANE DAILY PRN PRN Reason: Consult order Polyethylene Glycol (Polyethylene Glycol 3350 17 Gm Powd.Pack) 17 gm PO DAILY PRN PRN Reason: Constipation Sodium Chloride (0.9 % Sodium Chloride Flush 3 Ml Syringe) 3 ml IVFLUSH QSHIFT [facility] Last Admin: 02/22/24 08:17 Dose: 3 ml Home Medications ?Medication ?Instructions ?Recorded ?Confirmed ?Last Taken ?Type albuterol sulfate 90 mcg/actuation 2 puff inhalation Q4H PRN 01/20/23 02/21/24 01/19/23 History aerosol inhaler Shortness Of Breath Or Wheezing apixaban 5 mg tablet (Eliquis) 5 mg PO BID 01/20/23 02/21/24 11/22/23 History calcium carbonate 600 mg-vitamin 1 tab PO DAILY 01/20/23 02/21/24 11/22/23 History D3 5 mcg (200 unit) tablet citalopram 20 mg tablet 20 mg PO DAILY 01/20/23 02/21/24 11/22/23 History ferrous sulfate 325 mg (65 mg 325 mg PO DAILY 01/20/23 02/21/24 11/22/23 History iron) tablet levothyroxine 50 mcg tablet 50 mcg PO DAILY@0600 01/20/23 02/21/24 11/22/23 History montelukast 10 mg tablet 10 mg PO BEDTIME 01/20/23 02/21/24 11/21/23 History insulin glargine 100 unit/mL (3 50 unit subcut BID 06/01/23 02/21/24 11/22/23 History mL) subcutaneous pen (Basaglar KwikPen U-100 Insulin) docusate sodium 100 mg capsule 100 mg PO BID PRN Constipation 07/20/23 02/21/24 11/22/23 History folic acid 1 mg tablet 1 mg PO DAILY 07/20/23 02/21/24 11/22/23 History adalimumab 40 mg/0.8 mL 40 mg subcut Q14D 11/22/23 02/21/24 02/18/24 History subcutaneous syringe kit (Humira) fluticasone 500 mcg-salmeterol 50 1 ea inhalation BID 11/22/23 02/21/24 11/22/23 History mcg/dose blistr powdr for inhalation (Wixela Inhub) lactulose 10 gram/15 mL oral 10 ml PO TID 02/07/24 02/21/24 Unknown History solution (Enulose) simvastatin 20 mg tablet 20 mg PO BEDTIME 02/07/24 02/21/24 Unknown History acetaminophen 325 mg tablet 650 mg PO Q8H PRN Pain 02/21/24 02/21/24 Unknown History insulin lispro 100 unit/mL 1 sliding scale dose subcut TIDAC 02/21/24 02/21/24 Unknown History subcutaneous pen (Humalog KwikPen (U-100) Insulin) ipratropium 0.5 mg-albuterol 3 mg 3 ml inhalation QID 02/21/24 02/21/24 Unknown History (2.5 mg base)/3 mL nebulization soln polyethylene glycol 3350 17 gram 17 g PO DAILY 02/21/24 02/21/24 Unknown History oral powder packet (Miralax) sennosides 8.6 mg tablet (senna) 17.2 mg PO BID 02/21/24 02/21/24 Unknown History Physical Exam Vital Signs: Vital Signs: Last Vital Signs Temp 96.8 F 02/22/24 10:54 Pulse 83 02/22/24 10:54 Resp 20 02/22/24 10:54 BP 180/81 H 02/22/24 10:54 Pulse Ox 95 02/22/24 10:54 O2 Del Method Room Air 02/22/24 10:54 O2 Flow Rate 2 02/21/24 12:32 Oxygen Flow Rate 2 02/21/24 12:42 BMI result Body Mass Index 45.9 General: She is in acute distress, in distress, ill appearing and tired appearing Nutritional Appearance: well nourished and overweight Orientation/consciousness: Not oriented to person, not oriented to place and not oriented to time Eyes: General: appearance normal, both eyes and all related structures Visual Hart: normal visual hart by confrontation Alignment and Position: alignment normal and position normal Chest: Chest palpation & inspection: normal inspection of the chest, normal palpation of entire chest wall and abnormal inspection of the chest Resp: Effort & Inspection: normal respiratory effort, bilateral air entry equal, occasional added sounds present mostly in the lung bases Cardio: Jugular venous distension: no JVD Rate: regular rate Rhythm: abnormal rhythm Heart sounds: S1 normal heart sound present and S2 normal heart sound present GI: Inspection: Yes normal to inspection and Yes Abdominal wall edema Palpation (GI): nontender, no guarding, no hepatosplenomegaly and No Bladder palpation abnormal : General: Yes bladder normal to inspection, Yes bladder normal to palpation and No Bladder palpation abnormal Skin: General skin exam: no rashes or lesions noted and elasticity normal Neuro: General: Obtunded, grimaces to pain Results Labs 02/22/24 07:50 02/22/24 07:50 Labs: Short CBC 02/22/24 Range/Units 07:50 WBC 8.9 (4.8-10.8) X10*3/uL Hgb 12.2 (12.0-16.0) g/dl Hct 37.2 (37.0-47.0) % Plt Count 118 L (160-400) X10*3/uL BMP 02/21/24 02/22/24 02/22/24 17:22 00:40 07:50 Sodium 131 L 133 L 135 Potassium 6.0 H* 4.8 4.5 Chloride 99 100 101 Carbon Dioxide 22 22 22 BUN 105 H 101 H 96 H Creatinine 1.70 H 1.69 H 1.56 H Calcium 9.8 9.5 9.3 Urine 02/21/24 Range/Units 15:16 Urine Color Yellow Urine Appearance Clear Urine pH 5.5 (5.0-9.0) Ur Specific [place] 1.015 (1.005-1.025) Urine Protein Negative (Neg-Trace) mg/dL Urine Glucose (UA) Negative (Negative) mg/dL Microbiology Microbiology Results: Microbiology 02/21/24 13:04 Blood - Venous Blood Culture - Preliminary No growth after 24 hours. Assessment and Plan (1) Encephalopathy, hepatic: Status: Acute (2) Increased ammonia level: Status: Acute (3) Elevated troponin: Status: Acute (4) Paroxysmal atrial fibrillation: Status: Acute (5) Pneumonia: Status: Acute Plan Acute encephalopathy: Secondary to hepatic encephalopathy given her underlying history of GRIMES cirrhosis and hyperammonemia 11/11/2002 Brain imaging was negative for any acute intracranial pathology Avoid sedating medications Increase the lactulose to 20 mg every 2-4 until to 4 bowel movements, give lactulose enema. Rifaximin through the NG tube, can also try oral neomycin I had a detailed discussion about goals of care with patient's sister who is also her healthcare proxy. Explained her that she has multiple comorbidities and she has been mostly in the hospital for the past month and multiple times in the past year.. Her prognosis is going to be very poor as type of fixed for her most of her clinical conditions. Sisters agrees and states her understanding and she does not want any heroic measures to be done. We in particular talked about going life-support like ventilator and she is in agreement should be a DNI and DNR. We will try with aggressive medications to see if her condition improves and tomorrow if not we will proceed with palliative care. Total time managing care of this patient today: 30 minutes.
--- NOTE | 2024-02-22 15:39 | HO.PM.IMPN ---
Subjective Subjective Date of Service: 02/22/24 Interval History: toxic metabolic encephalopathy Review of Systems intermittent awake no fevers Physical Exam Vital Signs: Vital Signs: Last Vital Signs Temp 96.8 F 02/22/24 10:54 Pulse 83 02/22/24 10:54 Resp 20 02/22/24 10:54 BP 180/81 H 02/22/24 10:54 Pulse Ox 95 02/22/24 10:54 O2 Del Method Room Air 02/22/24 10:54 O2 Flow Rate 2 02/21/24 12:32 Oxygen Flow Rate 2 02/21/24 12:42 BMI result Body Mass Index 45.9 Appearance:intermittent awake ,unchanged from yesterday. cvs: rrr, [id number]. res: clear to auscultation ,no rhonchii or wheezing abd: no rebound or guarding ,nt, bs present. ext pulses present , no cyanosis. neuro:awake intermittent ,unable to obtain due to mental status . Objective Data Active Medications Acetaminophen (Acetaminophen 325 Mg Tablet) 650 mg PO Q6H PRN PRN Reason: Fever Acetaminophen (Acetaminophen 325 Mg Tablet) 650 mg PO Q6H PRN PRN Reason: Pain, Mild (Pain Scale 1-3) Acetaminophen (Acetaminophen 325 Mg Tablet) 650 mg PO Q6H PRN PRN Reason: Headache Apixaban (Apixaban 5 Mg Tablet) 5 mg NG-TUBE BID [facility] Last Admin: 02/22/24 08:16 Dose: 5 mg Documented By: LATOYA Calcium Carbonate (Calcium Carbonate 750 Mg Tab.Chew) 750 mg PO Q6H PRN PRN Reason: Heartburn Glucose (Glucose Gel 15 Gm Gel..Gram.) 15 gm PO Q15M PRN; Protocol PRN Reason: per Hypoglycemia Standing Ord. Hydralazine HCl (Hydralazine Hcl 20 Mg/Ml Vial) 10 mg IVPUSH Q6H PRN; Protocol PRN Reason: htn Dextrose (D10) 250 mls @ 750 mls/hr IV Q15M PRN; Protocol PRN Reason: per Hypoglycemia Standing Ord. Sodium Chloride (Ns) 1,000 mls @ 80 mls/hr IVCONT .[id number] [facility] Last Admin: 02/22/24 08:16 Dose: 80 mls/hr Documented By: LATOYA Cefepime HCl 2 gm/ Sodium (Chloride) 50 mls @ 100 mls/hr IV Q12H [facility] Last Infusion: 02/22/24 14:17 Dose: Infused Documented By: LATOYA Vancomycin HCl 750 mg/ Sodium (Chloride) 265 mls @ 265 mls/hr IV Q24H [facility] Insulin Glargine (Insulin Glargine,Hum.Rec.Anlog 100 Unit/Ml 10 Ml Vial) 15 unit SUBCUT BID [facility] Last Admin: 02/22/24 08:16 Dose: Not Given Documented By: LATOYA Non-Admin Reason: NPO Lactulose (Lactulose 20 Gm/30 Ml Solution) 30 gm NG-TUBE TID [facility] Last Admin: 02/22/24 13:38 Dose: 30 gm Documented By: LATOYA Magnesium Hydroxide (Milk Of Magnesia 30 Ml Oral.Susp) 30 ml PO DAILY PRN PRN Reason: Constipation Melatonin (Melatonin 3 Mg Tablet) 6 mg PO BEDTIME PRN PRN Reason: Insomnia Pharmacy Consult (Consult Rx Vancomycin Dosing) 1 each MISCELLANE DAILY PRN PRN Reason: Consult order Polyethylene Glycol (Polyethylene Glycol 3350 17 Gm Powd.Pack) 17 gm PO DAILY PRN PRN Reason: Constipation Sodium Chloride (0.9 % Sodium Chloride Flush 3 Ml Syringe) 3 ml IVFLUSH QSHIFT [facility] Last Admin: 02/22/24 08:17 Dose: 3 ml Documented By: LATOYA Labs 02/22/24 07:50 02/22/24 07:50 Labs: Laboratory Results - last 24 hr 02/21/24 02/21/24 02/21/24 15:16 17:22 19:33 MCV MCH MCHC RDW Plt Count MPV Immature Gran % (Auto) Neut % (Auto) Lymph % (Auto) [place] % (Auto) Eos % (Auto) Baso % (Auto) Lymph # (Auto) [place] # (Auto) Eos # (Auto) Baso # (Auto) Abs Immat Gran (auto) Absolute Neuts (auto) Absolute Nucleated RBC Nucleated RBC % (auto) Anion Gap 16 Estim Creat Clear Calc 37.8 Estimated GFR 29 POC Glucose 184 H Random Glucose 198 H Calcium 9.8 Magnesium Ammonia 102 H Troponin I High Sens 99.9 H* Urine Color Yellow Urine Appearance Clear Urine pH 5.5 Ur Specific [place] 1.015 Urine Protein Negative Urine Glucose (UA) Negative Urine Ketones Negative Urine Blood Trace H Urine Nitrite Negative Ur Leukocyte Esterase Negative Urine RBC 11-20 H Urine WBC 0-5 Ur Squamous Epith Cells 0-2 Urine Bacteria Trace Hyaline Casts 0-2 Urine Yeast Present Nasal Screen MRSA (PCR) Nasal S. aureus Screen Nasal MRSA/S.aureus Interp 02/21/24 02/21/24 02/21/24 19:59 20:56 21:01 MCV MCH MCHC RDW Plt Count MPV Immature Gran % (Auto) Neut % (Auto) Lymph % (Auto) [place] % (Auto) Eos % (Auto) Baso % (Auto) Lymph # (Auto) [place] # (Auto) Eos # (Auto) Baso # (Auto) Abs Immat Gran (auto) Absolute Neuts (auto) Absolute Nucleated RBC Nucleated RBC % (auto) Anion Gap Estim Creat Clear Calc Estimated GFR POC Glucose 179 H 176 H Random Glucose Calcium Magnesium Ammonia Troponin I High Sens Urine Color Urine Appearance Urine pH Ur Specific [place] Urine Protein Urine Glucose (UA) Urine Ketones Urine Blood Urine Nitrite Ur Leukocyte Esterase Urine RBC Urine WBC Ur Squamous Epith Cells Urine Bacteria Hyaline Casts Urine Yeast Nasal Screen MRSA (PCR) NEGATIVE Nasal S. aureus Screen NEGATIVE Nasal MRSA/S.aureus Interp SEE NOTE 02/22/24 02/22/24 02/22/24 00:40 06:52 07:50 MCV 87.3 MCH 28.6 MCHC 32.8 RDW 18.3 H Plt Count 118 L MPV 11.7 Immature Gran % (Auto) 0.5 H Neut % (Auto) 81.0 H Lymph % (Auto) 6.3 L [place] % (Auto) 11.8 H Eos % (Auto) 0.3 Baso % (Auto) 0.1 Lymph # (Auto) 0.6 L [place] # (Auto) 1.1 Eos # (Auto) 0.0 Baso # (Auto) 0.0 Abs Immat Gran (auto) 0.04 H Absolute Neuts (auto) 7.2 Absolute Nucleated RBC 0.000 Nucleated RBC % (auto) 0.0 Anion Gap 16 17 Estim Creat Clear Calc 38.0 41.1 Estimated GFR 30 33 POC Glucose 156 H Random Glucose 194 H 158 H Calcium 9.5 9.3 Magnesium 3.1 H Ammonia Troponin I High Sens Urine Color Urine Appearance Urine pH Ur Specific [place] Urine Protein Urine Glucose (UA) Urine Ketones Urine Blood Urine Nitrite Ur Leukocyte Esterase Urine RBC Urine WBC Ur Squamous Epith Cells Urine Bacteria Hyaline Casts Urine Yeast Nasal Screen MRSA (PCR) Nasal S. aureus Screen Nasal MRSA/S.aureus [facility] [place] Microbiology Microbiology Results: Microbiology 02/21/24 13:04 Blood Culture - Preliminary Blood - Venous No growth after 24 hours. Assessment and Plan (1) Increased ammonia level: Status: Acute (2) Pneumonia: Status: Acute Assessment and Plan: 73-year-old female with a PMH significant for?asthma/COPD overlap syndrome not on home O2, hx of PE on Eliquis, paroxysmal atrial fibrillation, insulin-dependent type 2 diabetes, hypothyroidism, GERD, GRIMES cirrhosis, and mood disorder presented to the ED from [facility] ( [place]) due to altered mental status. Recently admitted 02/10-02/16 for YORDAN complicated by acute hyponatremia and also noted to have new onset atrial fibrillation with RVR. She will be admitted for further management of acute hepatic encephalopathy and multifocal pneumonia with sepsis. acute toxic metabolic encephalopathy related to hepatic encephalopathy -ammonia level 103, has been receiving 10 ml lactulose t.i.d. nursing facility -head CT negative for acute intracranial abnormality has ngt lactulose to 30 gm tid ,also added lactlulose enema. Keep NPO for now, NG tube in place . REHABILITATION NURSE evaluation pending,continue ivf monitor mentation seen By iCU-lactulose adjusted 30 gm q4hr ,added rifaximine . Gi eval pending Acute multifocal pneumonia with sepsis leukocytosis 13.3, tachycardic-resolved. check sputum culture, Legionella antigen, strep pneumo antigen,nasal mrsa sceen continue IV vancomycin and cefepime (initiated 02/20),symptomatic management follow CBC, cultures paroxysmal atrial fibrillation with RVR -rapid rate likely related to sepsis/infection as above.vent rate 80's -continue Eliquis via NG tube for anticoagulation cardio rec added metoprolol 25 mg po bid. acute hyperkalemia -given 5 units regular insulin x2, calcium gluconate, Lokelma, and Lasix seems improved nephrology following elevated troponins -initial 107, repeat 99 -EKG without acute ischemic changes possible elevated trops sec to sepsis/pneumonia/afib. Grimes cirrhosis -complicated by hepatic encephalopathy above -no longer on diuretics due to recent admission with YORDAN chronic thrombocytopenia -related to cirrhosis chronic hyponatremia -likely also related to cirrhosis asthma/COPD overlap -no hypoxia, no acute exacerbation -continue home inhalers, albuterol p.r.n. insulin-dependent type 2 diabetes with hyperglycemia -history of hyperglycemia that is difficult to control control -patient is NPO, hold lantus -POC glucose, sliding scale ,avoid coverage below 200 . hypothyroidism -continue levothyroxine mood disorder -continue home medications DVT prophylaxis-Eliquis Full code Med rec pending Patient requires inpatient stay need for management of acute hepatic encephalopathy requiring lactulose titration and close monitoring of mental status. She will also require IV antibiotics due to multifocal pneumonia with sepsis. Discussed in detail with ICU-ICU evaluated the patient and discussed with the patient family-they are considering patient DNR DNI , if further worsen then will consider palliative management. Quality Stroke Does the patient have a stroke diagnosis?: No VTE Prior VTE?: No VTE Risk Level:: Medical - moderate - high VTE Device Contraindication: Treatment Not Indicated VTE Drug Contraindication: N/A - Med Ordered
[2024-02-22] MEDS: Dextrose 5 % and 0.9 % NaCl 1,000 ML 60 ML IVCONT (17:00)
--- NOTE | 2024-02-22 17:16 | PM.EVENT ---
Event Note Date of Service: 02/22/24 Event Note: GI consult dictated Hepatic encephalopathy cirrhosis and ascites secondary to GRIMES Agree with lactulose and antibiotics. follow labs. Time Spent With Patient Time: Total time managing care of this patient today ____ minutes.
--- NOTE | 2024-02-22 17:20 | W.MHC.ACPN ---
Advanced Care Planning Note Advanced Care Planning Note Time spent (in minutes): 30 Narrative: Patient management including toxic metabolic encephalopathy is due to underlying liver cirrhosis, multiple comorbidities-discussed with the patient healthcare proxy at bedside, ICU also discussed with her. Patient's healthcare proxy Ms zuniga decided for DNR DNI any further and continue to worsen then may consider palliative management. Currently she wants to try lactulose for next 24 hours or so to decide further course. Problems Discussed (1) Increased ammonia level: (2) Pneumonia:
[2024-02-22 17:37] LABS: Glucose, Whole Blood 185 mg/dL (60-115)
[2024-02-22] MEDS: Lactulose 320 GM/480 ML SOLUTION 200 GM PR (18:12)
--- NOTE | 2024-02-22 19:16 | PM.EVENT ---
Event Note Date of Service: 02/22/24 Event Note: 7:00 PM - According to nursing pt had some blood in stool when lactulose was administered via rectum and had an extra large bowel movement, soft and dark brown. Also, coffee ground material in the NG tube noted. --> Apixiban discontinued. Start Protonix 80 mg IV bolus then 40 mg PO bid + Octreotide 50 mcg IV bolus then infusion. GI consult has been placed. Time Spent With Patient Time: Total time managing care of this patient today ____ minutes.
[2024-02-22 20:08] LABS: Hematocrit 37.6 % (37.0-47.0); Hemoglobin 12.6 g/dl (12.0-16.0); Mean Corpuscular HGB Conc 33.5 g/dl (31.0-35.0); Mean Corpuscular Hemoglobin 30.3 pg (27.0-33.0); Mean Corpuscular Volume 90.4 fL (80.0-98.0); Mean Platelet Volume 11.9 fL (9.4-12.3); Platelet Count 140 X10*3/uL (160-400); Red Blood Count 4.16 X10*6/uL (4.20-5.50); Red Cell Distribution Width 18.9 % (11.0-16.0); White Blood Count 10.6 X10*3/uL (4.8-10.8)
[2024-02-22 21:04] LABS: Glucose, Whole Blood 241 mg/dL (60-115)
[2024-02-22] MEDS: Insulin Lispro 100 UNIT/ML 3 ML VIAL SUBCUT (21:14)
[2024-02-22] MEDS: Pantoprazole Sodium 40 MG/10 ML VIAL 80 MG IVPUSH (21:14)
[2024-02-22] MEDS: vancomycin HCL 750 MG in 0.9 % Sodium Chloride 250 ML 265 MG IV (21:41)
[2024-02-22] MEDS: Octreotide Acetate 500 MCG in 0.9 % Sodium Chloride 500 ML 50.1 MCG IVCONT (22:29)
[2024-02-22] MEDS: Octreotide Acetate 100 MCG/ML AMPUL 50 MCG IVPUSH (22:42)
[2024-02-23] VITALS: BP 131/75; PULSE 133; RESP 24; TEMP 36.3; O2SAT 94
[2024-02-23] MEDS: 0.9 % Sodium Chloride Flush 3 ML SYRINGE IVFLUSH ×3 (00:14→16:21)
[2024-02-23 00:36] LABS: Glucose, Whole Blood 195 mg/dL (60-115)
[2024-02-23] MEDS: cefEPime HCl 2 GM in 0.9 % Sodium Chloride 50 ML IV ×2 (02:45→16:21)
--- NOTE | 2024-02-23 02:54 | CONS_ITS ---
DATE OF SERVICE: 02/22/2024 REFERRING PHYSICIAN: Dr. Gutierrez REASON FOR CONSULTATION: Hepatic encephalopathy. HISTORY OF PRESENT ILLNESS: The patient is a 73-year-old woman who was admitted to the hospital on February 20 after presenting to the emergency room with altered mental status. She reportedly complained of shortness of breath at the short-term rehab facility where she was staying and became less responsive and was brought to the emergency room. In the emergency department, she was found to have an elevated ammonia level, and she has had an NG tube inserted and is being treated with lactulose. Shows a history of cirrhosis on the basis of GRIMES and was noted on abdominal imaging to have ascites. She has also had some renal insufficiency and electrolyte abnormalities that are being corrected. Diuretics have been held. The patient provides no history, and the history is obtained from the chart. She had been on lactulose at the rehab facility for constipation and is now getting more frequent dosing as well as lactulose enema. PAST MEDICAL HISTORY: 1. Cirrhosis with ascites on the basis of [employer]. 2. Asthma/COPD. 3. Hypothyroidism. 4. Elevated BMI. 5. Bacteremia. 6. Pulmonary embolism. 7. Depression. 8. Hyperlipidemia. 9. Rheumatoid arthritis. 10. Hypertension. 11. Diabetes mellitus type 2. CURRENT MEDICATIONS: Her current medication list is reviewed in the chart. ALLERGIES: MULTIPLE MEDICATION ALLERGIES ARE REVIEWED. FAMILY HISTORY: This is reviewed in the electronic medical record and is noncontributory. SOCIAL HISTORY: There is no current tobacco, alcohol, or substance abuse. REVIEW OF SYSTEMS: This is not obtainable. PHYSICAL EXAMINATION: GENERAL: Shows an elderly female, lying in bed, who does not respond to voice. VITAL SIGNS: Stable. SKIN: Anicteric. HEENT: Shows no scleral icterus. NECK: Without lymphadenopathy or thyromegaly. LUNGS: Clear. HEART: Shows a regular rate and rhythm. S1, S2. No murmur. ABDOMEN: Soft without focal masses or tenderness. Bowel sounds are present. No organomegaly is noted. EXTREMITIES: Show edema. DIAGNOSTIC DATA: Laboratory data is reviewed as are imaging studies in the electronic medical record. IMPRESSION: Hepatic encephalopathy. I agree with treating her with lactulose as you are doing. She is on antibiotics for pneumonia and this should cover any possible other source such as SBP from the ascites fluid. Thanks for asking me to see her. I will follow her in the hospital with you. MD ANDI Kaba/LILY / [phone]
[2024-02-23 04:00] VITALS: BP 140/62; PULSE 109; RESP 22; TEMP 36.1; O2SAT 93
--- NOTE | 2024-02-23 05:06 | PC.NURSE ---
Pt has been lethargic all shift. She does arouse to voice and pain, will very briefly open her eyes but does not make eye contact nor follow simple commands. Pt had a rectal tube in but was found to have a large, loose BM around the tube. Tube removed and replaced; liquid stool in the tube after insertion. She had two incidents of large, liquid stools this shift. Pt is also incontinent of urine, purewick replaced. NGT returned coffe ground looking fluid at beginning of this RN's shift, notified and told RN to hold all PO meds (see MAR for meds that were held). Pt remains in afib (her baseline), she can become tachycardic into the 120-130's, MD aware. Bed alarm on, safety maintained throughout shift.
[2024-02-23] MEDS: Pantoprazole Sodium 40 MG/10 ML VIAL IVPUSH ×2 (05:24→16:21)
[2024-02-23 06:34] LABS: Glucose, Whole Blood 183 mg/dL (60-115)
[2024-02-23 07:11] VITALS: BP 177/82; PULSE 102; RESP 20; TEMP 36.1; O2SAT 94
[2024-02-23] MEDS: Octreotide Acetate 500 MCG in 0.9 % Sodium Chloride 500 ML 50.1 MCG IVCONT ×2 (07:58→18:30)
[2024-02-23 08:25] LABS: Glucose, Whole Blood 163 mg/dL (60-115)
--- NOTE | 2024-02-23 08:50 | MHC.SLORD ---
Addendum entered and electronically signed by KARL Lua 02/23/24 16:18: Per RN, no change in pt status. CAD DEVELOPER to attempt swallow evaluation tomorrow. Original Note: Speech Language Pathology Order Status: Per RN, patient is not appropriate to participate in clinical swallow evaluation w/ CAD DEVELOPER. CAD DEVELOPER to follow patient throughout course of day and will evaluate if patient becomes awake/alert enough to participate.
[2024-02-23 11:02] VITALS: BP 139/61; PULSE 108; RESP 20; TEMP 36.1; O2SAT 96
[2024-02-23 11:18] LABS: Glucose, Whole Blood 168 mg/dL (60-115)
[2024-02-23] MEDS: Dextrose 5 % and 0.9 % NaCl 1,000 ML 60 ML IVCONT (11:42)
[2024-02-23] MEDS: Insulin Lispro 100 UNIT/ML 3 ML VIAL SUBCUT (11:48)
[2024-02-23] MEDS: Lactulose 320 GM/480 ML SOLUTION 200 GM PR ×3 (11:48→20:18)
--- NOTE | 2024-02-23 12:20 | MHC.CM.PN ---
EMR reviewed and per MD rounds, pt is not medically cleared for discharge due to management of toxic metabolic encephalopathy, pt to receive a couple more days of lactulose to see if any improvement in pts condition.
[2024-02-23 12:54] LABS: Hematocrit 37.9 % (37.0-47.0); Hemoglobin 12.1 g/dl (12.0-16.0)
[2024-02-23 13:02] LABS: Ammonia 47 umol/L (13-55)
[2024-02-23 14:50] LABS: Anion Gap 13 (12-20); Blood Urea Nitrogen 86 mg/dL (9-16); Calcium 8.4 mg/dL (8.4-10.2); Carbon Dioxide 23 mmol/L (22-29); Chloride 110 mmol/L (96-108); Creatinine Clr Calc Pharmacy 43.7; Estimated Glomerular Filt Rate 35; Glucose Random 190 mg/dL (60-115); Potassium 4.8 mmol/L (3.3-5.1); Sodium 141 mmol/L (135-145)
[2024-02-23 15:15] VITALS: BP 118/62; PULSE 101; RESP 20; TEMP 36.1; O2SAT 96
--- NOTE | 2024-02-23 15:32 | HO.PM.IMPN ---
Subjective Subjective Date of Service: 02/23/24 Interval History: ?coffee grounds ngt ,?brak brown stool last evening since morning no new episodes patient seems more awake to verbal stimuli Review of Systems no fevers passing stools (rectal containment device) Physical Exam Vital Signs: Vital Signs: Last Vital Signs Temp 97 F 02/23/24 15:15 Pulse 101 H 02/23/24 15:15 Resp 20 02/23/24 15:15 BP 118/62 02/23/24 15:15 Pulse Ox 96 02/23/24 15:15 O2 Del Method Room Air 02/23/24 15:15 O2 Flow Rate 2 02/21/24 12:32 Oxygen Flow Rate 2 02/21/24 12:42 BMI result Body Mass Index 45.9 Appearance:more awake,unable to answer any qyestions cvs: rrr, [id number]. res: clear to auscultation ,no rhonchii or wheezing abd: no rebound or guarding ,nt, bs present. has ngt( some dried blood at nasal meatus /ngt area -?irritation) ext pulses present , no cyanosis. neuro ,unable to obtain due to mental status . Objective Data Active Medications Acetaminophen (Acetaminophen 325 Mg Tablet) 650 mg PO Q6H PRN PRN Reason: Headache Acetaminophen (Acetaminophen Supp 650 Mg Supp.Rect) 650 mg LA Q6H PRN PRN Reason: Fever Calcium Carbonate (Calcium Carbonate 750 Mg Tab.Chew) 750 mg PO Q6H PRN PRN Reason: Heartburn Glucose (Glucose Gel 15 Gm Gel..Gram.) 15 gm PO Q15M PRN; Protocol PRN Reason: per Hypoglycemia Standing Ord. Glucose (Glucose Gel 15 Gm Gel..Gram.) 15 gm PO Q15M PRN; Protocol PRN Reason: per Hypoglycemia Standing Ord. Hydralazine HCl (Hydralazine Hcl 20 Mg/Ml Vial) 10 mg IVPUSH Q6H PRN; Protocol PRN Reason: htn Dextrose (D10) 250 mls @ 750 mls/hr IV Q15M PRN; Protocol PRN Reason: per Hypoglycemia Standing Ord. Cefepime HCl 2 gm/ Sodium (Chloride) 50 mls @ 100 mls/hr IV Q12H [facility] Last Infusion: 02/23/24 03:18 Dose: Infused Documented By: HOME Vancomycin HCl 750 mg/ Sodium (Chloride) 265 mls @ 265 mls/hr IV Q24H [facility] Last Infusion: 02/22/24 22:59 Dose: Infused Documented By: HOME Dextrose/Sodium Chloride (D5ns) 1,000 mls @ 60 mls/hr IVCONT .[id number] [facility] Last Admin: 02/23/24 11:42 Dose: 60 mls/hr Documented By: LUBA Dextrose (D10) 250 mls @ 750 mls/hr IV Q15M PRN; Protocol PRN Reason: per Hypoglycemia Standing Ord. Octreotide Acetate 500 mcg/ (Sodium Chloride) 501 mls @ 50.1 mls/hr IVCONT .Q10H [facility] Last Admin: 02/23/24 07:58 Dose: 50 mcg/hr, 50.1 mls/hr Documented By: UBALDO Insulin Human Lispro (Insulin Lispro 100 Unit/Ml 3 Ml Vial) 0 unit SUBCUT QIDACHS [facility]; Protocol Last Admin: 02/23/24 11:48 Dose: 2 unit Documented By: LUBA Lactulose (Lactulose 20 Gm/30 Ml Solution) 30 gm NG-TUBE Q4H [facility] Last Admin: 02/23/24 11:48 Dose: Not Given Documented By: LUBA Non-Admin Reason: NPO Lactulose (Lactulose 320 Gm/480 Ml Solution) 200 gm LA Q4H [facility] Last Admin: 02/23/24 11:48 Dose: 200 gm Documented By: LUBA Magnesium Hydroxide (Milk Of Magnesia 30 Ml Oral.Susp) 30 ml PO DAILY PRN PRN Reason: Constipation Melatonin (Melatonin 3 Mg Tablet) 6 mg PO BEDTIME PRN PRN Reason: Insomnia Metoprolol Tartrate (Metoprolol Tartrate 25 Mg Tablet) 25 mg G-TUBE BID [facility]; Protocol Last Admin: 02/23/24 08:01 Dose: Not Given Documented By: UBALDO Non-Admin Reason: HOLD PER PROVIDER Pantoprazole Sodium (Pantoprazole Sodium 40 Mg/10 Ml Vial) 40 mg IVPUSH BID@0630,1630 [facility] Last Admin: 02/23/24 05:24 Dose: 40 mg Documented By: HOME Pharmacy Consult (Consult Rx Vancomycin Dosing) 1 each MISCELLANE DAILY PRN PRN Reason: Consult order Polyethylene Glycol (Polyethylene Glycol 3350 17 Gm Powd.Pack) 17 gm PO DAILY PRN PRN Reason: Constipation Rifaximin (Rifaximin 550 Mg Tablet) 550 mg G-TUBE BID [facility] Last Admin: 02/23/24 08:01 Dose: Not Given Documented By: UBALDO Non-Admin Reason: HOLD PER PROVIDER Sodium Chloride (0.9 % Sodium Chloride Flush 3 Ml Syringe) 3 ml IVFLUSH QSHIFT [facility] Last Admin: 02/23/24 08:01 Dose: 3 ml Documented By: UBALDO Labs 02/23/24 12:42 02/23/24 14:00 Labs: Laboratory Results - last 24 hr 02/22/24 02/22/24 02/22/24 17:33 19:41 20:59 MCV 90.4 MCH 30.3 MCHC 33.5 RDW 18.9 H Plt Count 140 L MPV 11.9 Absolute Nucleated RBC 0.000 Nucleated RBC % (auto) 0.0 Anion Gap Estim Creat Clear Calc Estimated GFR POC Glucose 185 H 241 H Random Glucose Calcium Ammonia 02/23/24 02/23/24 02/23/24 00:27 06:29 07:54 MCV MCH MCHC RDW Plt Count MPV Absolute Nucleated RBC Nucleated RBC % (auto) Anion Gap Estim Creat Clear Calc Estimated GFR POC Glucose 195 H 183 H 163 H Random Glucose Calcium Ammonia 02/23/24 02/23/24 02/23/24 11:05 12:42 14:00 MCV MCH MCHC RDW Plt Count MPV Absolute Nucleated RBC Nucleated RBC % (auto) Anion Gap 13 Estim Creat Clear Calc 43.7 Estimated GFR 35 POC Glucose 168 H Random Glucose 190 H Calcium 8.4 D Ammonia 47 Microbiology Microbiology Results: Microbiology 02/21/24 13:04 Blood Culture - Preliminary Blood - Venous No growth after 48 hours. 02/21/24 13:34 Blood Culture - Preliminary Blood - Venous No growth after 24 hours. Assessment and Plan (1) Increased ammonia level: Status: Acute (2) Pneumonia: Status: Acute Assessment and Plan: 73-year-old female with a PMH significant for?asthma/COPD overlap syndrome not on home O2, hx of PE on Eliquis, paroxysmal atrial fibrillation, insulin-dependent type 2 diabetes, hypothyroidism, GERD, GRIMES cirrhosis, and mood disorder presented to the ED from [facility] ([place] due to altered mental status. Recently admitted 02/10-02/16 for YORDAN complicated by acute hyponatremia and also noted to have new onset atrial fibrillation with RVR. She will be admitted for further management of acute hepatic encephalopathy and multifocal pneumonia with sepsis. acute toxic metabolic encephalopathy related to hepatic encephalopathy more awake head CT negative for acute intracranial abnormality ammonia levels trending down has ngt lactulose switched to LA , hold meds throught ngt for today,we will check residuals. BIOLOGY MANAGER evaluation pending,continue ivf monitor mentation d/wgi- continue lactulose. Acute multifocal pneumonia with sepsis leukocytosis 13.3, tachycardic-resolved. check sputum culture, Legionella antigen, strep pneumo antigen,nasal mrsa sceen continue IV vancomycin and cefepime (initiated 02/20),symptomatic management follow CBC, cultures ? coffee ground/drak stools- moniter h/h fobt ppi/octreotide. paroxysmal atrial fibrillation with RVR -rapid rate likely related to sepsis/infection as above.vent rate 80's hold Eliquis for today and moniter h/h . cardio rec added metoprolol 25 mg po bid. acute hyperkalemia seems improved nephrology following elevated troponins -initial 107, repeat 99 -EKG without acute ischemic changes possible elevated trops sec to sepsis/pneumonia/afib. Grimes cirrhosis -complicated by hepatic encephalopathy above -no longer on diuretics due to recent admission with YORDAN chronic thrombocytopenia -related to cirrhosis chronic hyponatremia -likely also related to cirrhosis asthma/COPD overlap -no hypoxia, no acute exacerbation -continue home inhalers, albuterol p.r.n. insulin-dependent type 2 diabetes with hyperglycemia -history of hyperglycemia that is difficult to control control -patient is NPO, hold lantus -POC glucose, sliding scale ,avoid coverage below 200 . hypothyroidism -continue levothyroxine mood disorder -continue home medications DVT prophylaxis-Eliquis Full code Med rec pending ongoing inpatient stay need for management of acute hepatic encephalopathy requiring lactulose titration and close monitoring of mental status. She will also require IV antibiotics due to multifocal pneumonia with sepsis. hcp updated in detail. Quality Stroke Does the patient have a stroke diagnosis?: No VTE Prior VTE?: No VTE Risk Level:: Medical - moderate - high VTE Device Contraindication: Treatment Not Indicated VTE Drug Contraindication: N/A - Med Ordered
[2024-02-23 15:48] LABS: Glucose, Whole Blood 177 mg/dL (60-115)
--- NOTE | 2024-02-23 16:24 | P.CDIM_ITS ---
PROVIDER RESPONSE TEXT: To clarify, the appropriate diagnosis supported by the clinical indicators: CKD, please provide stage QUERY TEXT: PHYSICIAN'S DOCUMENTATION REQUEST Date of Query: 02/23/2024 12:49 PM EDT Patient Name: Jennifer Duran Admit Date: 02/22/2024 Dear Dorina Gutierrez, A review of the medical record indicates additional documentation may be needed. Please review below and update the documentation accordingly. Clinical Indicators: Nephrology note 02/21 - Plan: YORDAN superimposed on CKD due to hypoperfusion. Disproportionate elevation in the BUN is due to steroids. Creatinine is gradually trending down. No indication for dialysis. BUN should gradually decrease since produce has been discontinued. Please clarify which of the following accurately represents the stage of the CKD if treating: YORDAN on CKD CKD, please provide stage Other (explain) Clinically unable to determine (explain) Thank you, Kecia Ayala, CCS, CDIS Use of terms such as suspected, likely, concern for, or probable (associated with a specific diagnosi s that is being evaluated, monitored, or treated as if it exists) are acceptable and can be coded in the inpatient se tting, when documented at the time of discharge. Please use your independent medical judgment in providing your response. THIS QUERY IS PART OF THE PERMANENT MEDICAL RECORD
[2024-02-23 19:40] LABS: Vancomycin Random 24.1 mcg/mL (15-20)
[2024-02-23 19:58] VITALS: BP 107/60; PULSE 123; RESP 18; TEMP 35.7; O2SAT 100
--- NOTE | 2024-02-23 20:35 | P.PNNP_ITS ---
Subjective Subjective Date of Service: 02/23/24 Interval history: seems more awake to verbal stimuli; all recent data reviewed Physical Exam 2 Vital Signs: Vital Signs: Last Vital Signs Temp 96.3 F L 02/23/24 19:58 Pulse 123 H 02/23/24 19:58 Resp 18 02/23/24 19:58 BP 107/60 02/23/24 19:58 Pulse Ox 100 02/23/24 19:58 O2 Del Method Room Air 02/23/24 19:58 O2 Flow Rate 2 02/21/24 12:32 Oxygen Flow Rate 2 02/21/24 12:42 BMI result Body Mass Index 45.9 Const: General: no acute distress Neck: Neck: Yes supple Resp: Auscultation: diminished lung sounds Cardio: Rate: regular rate GI: Palpation (GI): Soft to palpation Neuro: General: moves all extremities Objective Data Labs 02/23/24 12:42 02/23/24 14:00 Labs: Laboratory Results - last 24 hr 02/22/24 02/23/24 02/23/24 20:59 00:27 06:29 Hgb Hct Sodium Potassium Chloride Carbon Dioxide Anion Gap BUN Creatinine Estim Creat Clear Calc Estimated GFR POC Glucose 241 H 195 H 183 H Random Glucose Calcium Ammonia Random Vancomycin 02/23/24 02/23/24 02/23/24 07:54 11:05 12:42 Hgb 12.1 Hct 37.9 Sodium Potassium Chloride Carbon Dioxide Anion Gap BUN Creatinine Estim Creat Clear Calc Estimated GFR POC Glucose 163 H 168 H Random Glucose Calcium Ammonia 47 Random Vancomycin 02/23/24 02/23/24 02/23/24 14:00 15:18 19:10 Hgb Hct Sodium 141 Potassium 4.8 Chloride 110 H Carbon Dioxide 23 Anion Gap 13 BUN 86 H Creatinine 1.47 H Estim Creat Clear Calc 43.7 Estimated GFR 35 POC Glucose 177 H Random Glucose 190 H Calcium 8.4 D Ammonia Random Vancomycin 24.1 H Microbiology Microbiology Results: Microbiology 02/21/24 13:34 Blood - Venous Blood Culture - Preliminary No growth after 48 hours. 02/21/24 13:04 Blood - Venous Blood Culture - Preliminary No growth after 48 hours. Procedures Date of Service Date of Service: 02/23/24 Assessment & Plan Assessment and plan (1) YORDAN (acute kidney injury): Status: Acute Plan YORDAN superimposed on CKD due to hypoperfusion Creatinine is gradually trending down. Hyperkalemia due to the combination of spironolactone in the setting of renal insufficiency. C/W current supportive care for now Progress Note: Quality Stroke Does the patient have a stroke diagnosis?: No
[2024-02-23 21:36] LABS: Glucose, Whole Blood 180 mg/dL (60-115)
[2024-02-24] VITALS (8 sets, daily range): BP systolic 125–163; BP diastolic 63–88; PULSE 78–114; RESP 16–20; TEMP 35.8–36.7; O2SAT 93–98
[2024-02-24] MEDS: Lactulose 320 GM/480 ML SOLUTION 200 GM PR ×3 (00:48→11:09)
[2024-02-24] MEDS: cefEPime HCl 2 GM in 0.9 % Sodium Chloride 50 ML IV ×2 (04:03→14:38)
[2024-02-24] MEDS: Dextrose 5 % and 0.9 % NaCl 1,000 ML 60 ML IVCONT (04:08)
[2024-02-24] MEDS: Octreotide Acetate 500 MCG in 0.9 % Sodium Chloride 500 ML 50.1 MCG IVCONT ×2 (04:24→14:22)
[2024-02-24] MEDS: Pantoprazole Sodium 40 MG/10 ML VIAL IVPUSH ×2 (05:17→17:03)
[2024-02-24 08:04] LABS: Glucose, Whole Blood 202 mg/dL (60-115)
[2024-02-24] MEDS: Insulin Lispro 100 UNIT/ML 3 ML VIAL SUBCUT ×4 (08:44→20:24)
--- NOTE | 2024-02-24 09:24 | P.PNNP_ITS ---
Subjective Subjective Date of Service: 02/24/24 Interval history: seems more awake to verbal stimuli; all recent data reviewed Physical Exam 2 Vital Signs: Vital Signs: Last Vital Signs Temp 98.1 F 02/24/24 08:00 Pulse 106 H 02/24/24 08:00 Resp 20 02/24/24 08:00 BP 129/68 02/24/24 08:00 Pulse Ox 93 02/24/24 08:00 O2 Del Method Room Air 02/24/24 08:00 O2 Flow Rate 2 02/21/24 12:32 Oxygen Flow Rate 2 02/21/24 12:42 BMI result Body Mass Index 45.9 Const: General: ill appearing Neck: Neck: Yes supple Resp: Auscultation: rhonchi Cardio: Palpation: no palpable S3 Heart sounds: no rubs GI: Palpation (GI): Soft to palpation Auscultation: normal bowel sounds Neuro: Motor exam (neuro): no asterixis Objective Data Labs 02/23/24 12:42 02/23/24 14:00 Labs: Laboratory Results - last 24 hr 02/23/24 02/23/24 02/23/24 11:05 12:42 14:00 Hgb 12.1 Hct 37.9 Sodium 141 Potassium 4.8 Chloride 110 H Carbon Dioxide 23 Anion Gap 13 BUN 86 H Creatinine 1.47 H Estim Creat Clear Calc 43.7 Estimated GFR 35 POC Glucose 168 H Random Glucose 190 H Calcium 8.4 D Ammonia 47 Random Vancomycin 02/23/24 02/23/24 02/23/24 15:18 19:10 21:24 Hgb Hct Sodium Potassium Chloride Carbon Dioxide Anion Gap BUN Creatinine Estim Creat Clear Calc Estimated GFR POC Glucose 177 H 180 H Random Glucose Calcium Ammonia Random Vancomycin 24.1 H 02/24/24 07:45 Hgb Hct Sodium Potassium Chloride Carbon Dioxide Anion Gap BUN Creatinine Estim Creat Clear Calc Estimated GFR POC Glucose 202 H Random Glucose Calcium Ammonia Random Vancomycin Microbiology Microbiology Results: Microbiology 02/21/24 13:34 Blood - Venous Blood Culture - Preliminary No growth after 48 hours. 02/21/24 13:04 Blood - Venous Blood Culture - Preliminary No growth after 48 hours. Procedures Date of Service Date of Service: 02/24/24 Assessment & Plan Assessment and plan (1) Hyperkalemia: Status: Acute (2) YORDAN (acute kidney injury): Status: Acute Plan YORDAN superimposed on CKD due to hypoperfusion. Disproportionate elevation in the BUN is due to steroids. Currently she is off steroids. Creatinine is gradually trending down. No indication for dialysis BUN should gradually decrease since produce has been discontinued. Hyperkalemia due to the combination of spironolactone setting of renal insufficiency. For now I will hold off on using spironolactone. Keep on low-potassium diet and use Lokelma as needed. Hepatic encephalopathy Lactulose to correct hyperammonemia Time Spent With Patient Time: Total time managing care of this patient today ____ minutes. Progress Note: Quality Stroke Does the patient have a stroke diagnosis?: No
[2024-02-24 12:36] LABS: Glucose, Whole Blood 210 mg/dL (60-115)
--- NOTE | 2024-02-24 13:14 | MHC.SL.SWA ---
Risk of Aspiration Due to: Lethargy Dysphasia Diet Status: UPGRADE from NPO Liquid Consistency and Strategies for Safe Swallow: Liquid Intake Recommendation: Thin Liquid Intake Strategies: Liquids by Teaspoon Only Solid Food Consistency: Dietary Recommendations: Pureed (NDD1) Oral Medication Intake: Crushed with Puree Please contact the pharmacy regarding appropriate crushable or liquid drug formulations that are available whenever modified delivery is recommended. Compensatory Strategies and Precautions to be Taken for Safe Swallow: Sitting Upright (90 deg) Double Swallow No Straw Liquids from Spoon Small Bites and Sips Alternate Liquids/Solids Rate of Ingestion Change Oral Check Supervision While Eating and Drinking for Safe Swallow: Total Assistance (1:1) Swallowing Recommended Treatments: Compens. Strategy Educat. Recommendation for Speech: Inpatient Speech Therapy Comment: Recommend patient START diet of PUREE solids (NDD1) and THIN liquids via TEASPOON ONLY. No straws. Patient requires 1-1 assistance w/ feeding at this time w/ cueing to swallow 2x after each bite and sip. Patient unlikely to meet nutritional needs by PO only, therefore dietary consultation is recommended to determine if NG tube is still needed. Recommend continue w/ alternative methods for meds if possible, otherwise crushed in puree. Aspiration precautions apply. Frequency/Duration: M-F .Net Architect Clinican/Clinical Fellow: No Supervisory Statement: I have reviewed and agree with the student/clinical fellow's documentation: N/A Speech Language Pathologist: Jelena Ricks M.A., CCC-ENDOSCOPY SUPPORT SPECIALIST
[2024-02-24 15:10] LABS: Hematocrit 35.9 % (37.0-47.0); Hemoglobin 11.4 g/dl (12.0-16.0)
[2024-02-24 15:22] LABS: Anion Gap 12 (12-20); Blood Urea Nitrogen 67 mg/dL (9-16); Carbon Dioxide 21 mmol/L (22-29); Chloride 112 mmol/L (96-108); Creatinine Clr Calc Pharmacy 56.9; Estimated Glomerular Filt Rate 47; Potassium 4.3 mmol/L (3.3-5.1); Sodium 141 mmol/L (135-145)
[2024-02-24 15:26] LABS: Glucose Random 385 mg/dL (60-115)
--- NOTE | 2024-02-24 15:36 | HO.PM.IMPN ---
Subjective Subjective Date of Service: 02/24/24 Interval History: sepsis,pneumonia , acute toxic metabolic encephalopathy related to hepatic encephalopathy Review of Systems menatl status improving could able to say her name, wiggle toes passing stools no new episode of coffee ground or any melena Physical Exam Vital Signs: Vital Signs: Last Vital Signs Temp 96.9 F 02/24/24 12:00 Pulse 100 02/24/24 12:00 Resp 20 02/24/24 12:00 BP 163/66 H 02/24/24 12:00 Pulse Ox 95 02/24/24 12:00 O2 Del Method Room Air 02/24/24 12:00 O2 Flow Rate 2 02/21/24 12:32 Oxygen Flow Rate 2 02/21/24 12:42 BMI result Body Mass Index 45.9 Appearance:more awake,alertx1. cvs: rrr, [id number]. res: clear to auscultation ,no rhonchii or wheezing abd: no rebound or guarding ,nt, bs present. has ngt( some dried blood at nasal meatus /ngt area -?irritation) ext pulses present , no cyanosis. neuro ,unable to obtain due to mental status . Objective Data Active Medications Acetaminophen (Acetaminophen 325 Mg Tablet) 650 mg PO Q6H PRN PRN Reason: Headache Acetaminophen (Acetaminophen Supp 650 Mg Supp.Rect) 650 mg KS Q6H PRN PRN Reason: Fever Calcium Carbonate (Calcium Carbonate 750 Mg Tab.Chew) 750 mg PO Q6H PRN PRN Reason: Heartburn Glucose (Glucose Gel 15 Gm Gel..Gram.) 15 gm PO Q15M PRN; Protocol PRN Reason: per Hypoglycemia Standing Ord. Glucose (Glucose Gel 15 Gm Gel..Gram.) 15 gm PO Q15M PRN; Protocol PRN Reason: per Hypoglycemia Standing Ord. Hydralazine HCl (Hydralazine Hcl 20 Mg/Ml Vial) 10 mg IVPUSH Q6H PRN; Protocol PRN Reason: htn Dextrose (D10) 250 mls @ 750 mls/hr IV Q15M PRN; Protocol PRN Reason: per Hypoglycemia Standing Ord. Cefepime HCl 2 gm/ Sodium (Chloride) 50 mls @ 100 mls/hr IV Q12H GIOVANNI Last Infusion: 02/24/24 15:15 Dose: Infused Documented By: LINDA Dextrose (D10) 250 mls @ 750 mls/hr IV Q15M PRN; Protocol PRN Reason: per Hypoglycemia Standing Ord. Octreotide Acetate 500 mcg/ (Sodium Chloride) 501 mls @ 50.1 mls/hr IVCONT .Q10H [facility] Last Admin: 02/24/24 14:22 Dose: 50 mcg/hr, 50.1 mls/hr Documented By: LINDA Insulin Human Lispro (Insulin Lispro 100 Unit/Ml 3 Ml Vial) 0 unit SUBCUT QIDACHS [facility]; Protocol Last Admin: 02/24/24 13:04 Dose: 2 unit Documented By: LINDA Lactulose (Lactulose 20 Gm/30 Ml Solution) 30 gm NG-TUBE Q4H [facility] Last Admin: 02/24/24 13:08 Dose: Not Given Documented By: LINDA Non-Admin Reason: Ng tube not being used Lactulose (Lactulose 320 Gm/480 Ml Solution) 200 gm KS Q4H [facility] Last Admin: 02/24/24 13:24 Dose: Not Given Documented By: LINDA Non-Admin Reason: Previously Administered Comments: Administered at a later time Magnesium Hydroxide (Milk Of Magnesia 30 Ml Oral.Susp) 30 ml PO DAILY PRN PRN Reason: Constipation Melatonin (Melatonin 3 Mg Tablet) 6 mg PO BEDTIME PRN PRN Reason: Insomnia Metoprolol Tartrate (Metoprolol Tartrate 25 Mg Tablet) 25 mg G-TUBE BID [facility]; Protocol Last Admin: 02/24/24 07:27 Dose: Not Given Documented By: LINDA Non-Admin Reason: NPO Pantoprazole Sodium (Pantoprazole Sodium 40 Mg/10 Ml Vial) 40 mg IVPUSH BID@0630,1630 [facility] Last Admin: 02/24/24 05:17 Dose: 40 mg Documented By: VINCENT Polyethylene Glycol (Polyethylene Glycol 3350 17 Gm Powd.Pack) 17 gm PO DAILY PRN PRN Reason: Constipation Rifaximin (Rifaximin 550 Mg Tablet) 550 mg G-TUBE BID [facility] Last Admin: 02/24/24 07:28 Dose: Not Given Documented By: LINDA Non-Admin Reason: NG tube not being used Sodium Chloride (0.9 % Sodium Chloride Flush 3 Ml Syringe) 3 ml IVFLUSH QSHIFT [facility] Last Admin: 02/24/24 10:39 Dose: Not Given Documented By: LINDA Non-Admin Reason: IV Running Labs 02/24/24 14:53 02/24/24 14:53 Labs: Laboratory Results - last 24 hr 02/23/24 02/23/24 02/23/24 15:18 19:10 21:24 Anion Gap Estim Creat Clear Calc Estimated GFR POC Glucose 177 H 180 H Random Glucose Calcium Random Vancomycin 24.1 H 02/24/24 02/24/24 02/24/24 07:45 12:22 14:53 Anion Gap 12 Estim Creat Clear Calc 56.9 Estimated GFR 47 POC Glucose 202 H 210 H Random Glucose 385 H* Calcium 8.0 L Random Vancomycin Microbiology Microbiology Results: Microbiology 02/21/24 13:34 Blood Culture - Preliminary Blood - Venous No growth after 48 hours. 02/21/24 13:04 Blood Culture - Preliminary Blood - Venous No growth after 48 hours. 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 Recently admitted 02/10-02/16 for YORDAN complicated by acute hyponatremia and also noted to have new onset atrial fibrillation with RVR. She will be admitted for further management of acute hepatic encephalopathy and multifocal pneumonia with sepsis. acute toxic metabolic encephalopathy related to hepatic encephalopathy more awake head CT negative for acute intracranial abnormality ammonia levels trending down plan keep ngt lactulose switched to KS , switch to po lactulose if able to take po. PRODUCTION TEAM MANAGER evaluation -purreed/thin liquids monitor mentation d/wgi- continue lactulose. Acute multifocal pneumonia with sepsis leukocytosis 13.3 improved sepsis resolved. blood culture negative @48 hrs nasal mrsa: negative Legionella antigen, strep pneumo antigen-pending off IV vancomycin (nasal mrsa negative)and cefepime (initiated 02/20),symptomatic management follow CBC, cultures ? coffee ground/drak stools-( on 02/21/23) no more episodes h/h-stable fobt ppi/octreotide. may start ac if h/h remain stable in am and no new episodes of bleeding . paroxysmal atrial fibrillation with RVR-rapid rate likely related to sepsis/infection as above.vent rate 80's hold Eliquis for today and moniter h/h . cardio rec added metoprolol 25 mg po bid. acute hyperkalemia seems improved nephrology following elevated troponins -initial 107, repeat 99 -EKG without acute ischemic changes possible elevated trops sec to sepsis/pneumonia/afib. Grimes cirrhosis -complicated by hepatic encephalopathy above -no longer on diuretics due to recent admission with YORDAN chronic thrombocytopenia -related to cirrhosis chronic hyponatremia -likely also related to cirrhosis asthma/COPD overlap -no hypoxia, no acute exacerbation -continue home inhalers, albuterol p.r.n. insulin-dependent type 2 diabetes with hyperglycemia -history of hyperglycemia that is difficult to control control -patient is NPO, hold lantus -POC glucose, sliding scale ,avoid coverage below 200 . hypothyroidism -continue levothyroxine mood disorder -continue home medications DVT prophylaxis-Eliquis Full code Med rec pending ongoing inpatient stay need for management of acute hepatic encephalopathy requiring lactulose titration and close monitoring of mental status. She will also require IV antibiotics due to multifocal pneumonia with sepsis. hcp updated in detail. Quality Stroke Does the patient have a stroke diagnosis?: No VTE Prior VTE?: No VTE Risk Level:: Medical - moderate - high VTE Device Contraindication: Treatment Not Indicated VTE Drug Contraindication: N/A - Med Ordered
[2024-02-24 16:05] LABS: Glucose, Whole Blood 304 mg/dL (60-115)
[2024-02-24] MEDS: Lactulose 20 GM/30 ML SOLUTION 30 GM PO ×3 (17:00→23:42)
[2024-02-24] MEDS: 0.9 % Sodium Chloride Flush 3 ML SYRINGE IVFLUSH ×2 (17:04→23:41)
[2024-02-24 20:10] LABS: Glucose, Whole Blood 267 mg/dL (60-115)
[2024-02-24] MEDS: Levothyroxine Sodium 50 MCG TABLET PO (20:24)
[2024-02-24] MEDS: Montelukast Sodium 10 MG TABLET PO (20:24)
[2024-02-24] MEDS: Folic Acid 1 MG TABLET PO (20:24)
[2024-02-24] MEDS: Insulin Glargine,Hum.rec.anlog 100 UNIT/ML 10 ML VIAL SUBCUT (20:24)
[2024-02-24] MEDS: rifAXIMin 550 MG TABLET G-TUBE (20:24)
[2024-02-24] MEDS: Metoprolol Tartrate 25 MG TABLET G-TUBE (20:25)
--- NOTE | 2024-02-24 23:05 | W.PM.IDCN ---
History of Present Illness Data of Consult Service Date: 02/24/24 Requesting physician: Dorina Gutierrez Primary Care Provider: Aydin Leo MD HPI Reason for consult: sepsis/pneumonia She presents with weakness and fatigue. She also has cough. She has corynebacterium from blood. [facility] Past Medical History Medical History Asthma Bacteremia Morbid (severe) obesity due to excess calories Asthma-COPD overlap syndrome Hypothyroidism Pulmonary embolism Depression Hyperlipidemia Rheumatoid arthritis Hypertension Diabetes mellitus, type 2 Social History Social History Household Members: Unknown / Unable to assess Household Members Other:: sister and brother Housing: Unknown / Unable to assess Do you presently have visiting nurse or other home services: No (Meals on Wheels) Unable to assess alcohol history related to: Unable to respond Alcohol intake: never Patient Tobacco Use Status: Never used Tobacco Advance Directives Date on File: 06/07/23 service: No Current occupational status: disabled Meds Allergies Allergy/AdvReac Type Severity Reaction Status Date / Time rosuvastatin [From CRESTOR] Allergy Unknown Unknown Verified 02/21/24 12:51 coconut Allergy Unknown Verified 02/24/24 13:01 empagliflozin Allergy Unknown Verified 02/21/24 12:51 [From Jardiance] piperacillin [From Zosyn] AdvReac Intermediate Vomiting Verified 02/21/24 12:51 tazobactam [From Zosyn] AdvReac Intermediate Vomiting Verified 02/21/24 12:51 Active Medications: Current Medications Acetaminophen (Acetaminophen 325 Mg Tablet) 650 mg PO Q6H PRN PRN Reason: Headache Acetaminophen (Acetaminophen Supp 650 Mg Supp.Rect) 650 mg DE Q6H PRN PRN Reason: Fever Calcium Carbonate (Calcium Carbonate 750 Mg Tab.Chew) 750 mg PO Q6H PRN PRN Reason: Heartburn Escitalopram Oxalate (Escitalopram Oxalate 10 Mg Tablet) 10 mg PO DAILY [facility] Ferrous Sulfate (Ferrous Sulfate 324 Mg Tablet.Dr) 324 mg PO DAILY [facility] Fluticasone/Vilanterol (Fluticasone/Vilanterol 200/25 Blst.W.Dev) 1 puff INHALE DAILY [facility] Folic Acid (Folic Acid 1 Mg Tablet) 1 mg PO DAILY [facility] Last Admin: 02/24/24 20:24 Dose: 1 mg Glucose (Glucose Gel 15 Gm Gel..Gram.) 15 gm PO Q15M PRN; Protocol PRN Reason: per Hypoglycemia Standing Ord. Glucose (Glucose Gel 15 Gm Gel..Gram.) 15 gm PO Q15M PRN; Protocol PRN Reason: per Hypoglycemia Standing Ord. Hydralazine HCl (Hydralazine Hcl 20 Mg/Ml Vial) 10 mg IVPUSH Q6H PRN; Protocol PRN Reason: htn Dextrose (D10) 250 mls @ 750 mls/hr IV Q15M PRN; Protocol PRN Reason: per Hypoglycemia Standing Ord. Cefepime HCl 2 gm/ Sodium (Chloride) 50 mls @ 100 mls/hr IV Q12H [facility] Last Infusion: 02/24/24 15:15 Dose: Infused Dextrose (D10) 250 mls @ 750 mls/hr IV Q15M PRN; Protocol PRN Reason: per Hypoglycemia Standing Ord. Octreotide Acetate 500 mcg/ (Sodium Chloride) 501 mls @ 50.1 mls/hr IVCONT .Q10H [facility] Last Admin: 02/24/24 14:22 Dose: 50 mcg/hr, 50.1 mls/hr Insulin Glargine (Insulin Glargine,Hum.Rec.Anlog 100 Unit/Ml 10 Ml Vial) 5 unit SUBCUT BID [facility] Last Admin: 02/24/24 20:24 Dose: 5 unit Insulin Human Lispro (Insulin Lispro 100 Unit/Ml 3 Ml Vial) 0 unit SUBCUT QIDACHS [facility]; Protocol Last Admin: 02/24/24 20:24 Dose: 6 unit Lactulose (Lactulose 320 Gm/480 Ml Solution) 200 gm DE Q4H [facility] Last Admin: 02/24/24 18:46 Dose: Not Given Lactulose (Lactulose 20 Gm/30 Ml Solution) 30 gm PO Q4H [facility] Last Admin: 02/24/24 20:23 Dose: 30 gm Levalbuterol HCl (Levalbuterol Hcl 1.25 Mg/3 Ml Vial.Neb) 1.25 mg INHALE Q4H PRN PRN Reason: Shortness Of Breath/Wheezing Levothyroxine Sodium (Levothyroxine Sodium 50 Mcg Tablet) 50 mcg PO DAILY@0600 [facility] Magnesium Hydroxide (Milk Of Magnesia 30 Ml Oral.Susp) 30 ml PO DAILY PRN PRN Reason: Constipation Melatonin (Melatonin 3 Mg Tablet) 6 mg PO BEDTIME PRN PRN Reason: Insomnia Metoprolol Tartrate (Metoprolol Tartrate 25 Mg Tablet) 25 mg G-TUBE BID [facility]; Protocol Last Admin: 02/24/24 20:25 Dose: 25 mg Montelukast Sodium (Montelukast Sodium 10 Mg Tablet) 10 mg PO BEDTIME [facility] Last Admin: 02/24/24 20:24 Dose: 10 mg Pantoprazole Sodium (Pantoprazole Sodium 40 Mg/10 Ml Vial) 40 mg IVPUSH BID@0630,1630 [facility] Last Admin: 02/24/24 17:03 Dose: 40 mg Polyethylene Glycol (Polyethylene Glycol 3350 17 Gm Powd.Pack) 17 gm PO DAILY PRN PRN Reason: Constipation Rifaximin (Rifaximin 550 Mg Tablet) 550 mg G-TUBE BID [facility] Last Admin: 02/24/24 20:24 Dose: 550 mg Sodium Chloride (0.9 % Sodium Chloride Flush 3 Ml Syringe) 3 ml IVFLUSH QSHIFT [facility] Last Admin: 02/24/24 17:04 Dose: 3 ml Home Medications ?Medication ?Instructions ?Recorded ?Confirmed ?Last Taken ?Type albuterol sulfate 90 mcg/actuation 2 puff inhalation Q4H PRN 01/20/23 02/21/24 01/19/23 History aerosol inhaler Shortness Of Breath Or Wheezing apixaban 5 mg tablet (Eliquis) 5 mg PO BID 01/20/23 02/21/24 11/22/23 History calcium carbonate 600 mg-vitamin 1 tab PO DAILY 01/20/23 02/21/24 11/22/23 History D3 5 mcg (200 unit) tablet citalopram 20 mg tablet 20 mg PO DAILY 01/20/23 02/21/24 11/22/23 History ferrous sulfate 325 mg (65 mg 325 mg PO DAILY 01/20/23 02/21/24 11/22/23 History iron) tablet levothyroxine 50 mcg tablet 50 mcg PO DAILY@0600 01/20/23 02/21/24 11/22/23 History montelukast 10 mg tablet 10 mg PO BEDTIME 01/20/23 02/21/24 11/21/23 History insulin glargine 100 unit/mL (3 50 unit subcut BID 06/01/23 02/21/24 11/22/23 History mL) subcutaneous pen (Basaglar KwikPen U-100 Insulin) docusate sodium 100 mg capsule 100 mg PO BID PRN Constipation 07/20/23 02/21/24 11/22/23 History folic acid 1 mg tablet 1 mg PO DAILY 07/20/23 02/21/24 11/22/23 History adalimumab 40 mg/0.8 mL 40 mg subcut Q14D 11/22/23 02/21/24 02/18/24 History subcutaneous syringe kit (Humira) fluticasone 500 mcg-salmeterol 50 1 ea inhalation BID 11/22/23 02/21/24 11/22/23 History mcg/dose blistr powdr for inhalation (Wixela Inhub) lactulose 10 gram/15 mL oral 10 ml PO TID 02/07/24 02/21/24 Unknown History solution (Enulose) simvastatin 20 mg tablet 20 mg PO BEDTIME 02/07/24 02/21/24 Unknown History acetaminophen 325 mg tablet 650 mg PO Q8H PRN Pain 02/21/24 02/21/24 Unknown History insulin lispro 100 unit/mL 1 sliding scale dose subcut TIDAC 02/21/24 02/21/24 Unknown History subcutaneous pen (Humalog KwikPen (U-100) Insulin) ipratropium 0.5 mg-albuterol 3 mg 3 ml inhalation QID 02/21/24 02/21/24 Unknown History (2.5 mg base)/3 mL nebulization soln polyethylene glycol 3350 17 gram 17 g PO DAILY 02/21/24 02/21/24 Unknown History oral powder packet (Miralax) sennosides 8.6 mg tablet (senna) 17.2 mg PO BID 02/21/24 02/21/24 Unknown History Physical Exam Vital Signs: Vital Signs: Last Vital Signs Temp 97.2 F 02/24/24 19:22 Pulse 114 H 02/24/24 20:25 Resp 17 02/24/24 19:22 BP 141/85 H 02/24/24 20:25 Pulse Ox 94 02/24/24 19:22 O2 Del Method Room Air 02/24/24 19:22 O2 Flow Rate 2 02/21/24 12:32 Oxygen Flow Rate 2 02/21/24 12:42 BMI result Body Mass Index 45.9 Const: General: cooperative HEENT: Head: Yes normal to inspection Face and sinus: Yes normal facial exam Mouth: Normal oral and palatal mucosa present Teeth and gingiva: dentition normal Eyes: General: appearance normal, both eyes and all related structures Pupils: Equal, round and reactive pupils present Resp: Effort & Inspection: normal respiratory effort Cardio: Rate: regular rate Rhythm: regular rhythm GI: Other: NGT Palpation (GI): Soft to palpation and nontender : General: Yes no CVA tenderness Back/Spine/Pelvis: Back: no CVA tenderness Skin: General skin exam: no rashes or lesions noted Neuro: General: moves all extremities Cranial nerves: Yes Equal, round and reactive pupils present Extrem: General: Yes normal to inspection Psych: Appearance: grossly normal Results Labs 02/24/24 14:53 02/24/24 14:53 Labs: Short CBC 02/24/24 Range/Units 14:53 Hgb 11.4 L (12.0-16.0) g/dl Hct 35.9 L (37.0-47.0) % BMP 02/24/24 14:53 Sodium 141 Potassium 4.3 Chloride 112 H Carbon Dioxide 21 L BUN 67 H Creatinine 1.13 Calcium 8.0 L Microbiology Microbiology Results: Microbiology 02/21/24 13:34 Blood - Venous Blood Culture - Preliminary No growth after 48 hours. 02/21/24 13:04 Blood - Venous Blood Culture - Preliminary No growth after 48 hours. Assessment and Plan (1) Mental status alteration: Status: Acute (2) Community acquired pneumonia: Status: Acute Plan there is aspiration cause concern Gram negative ,anerobes Suggest 5-7 d Cefepime Work with bowel concerns ,NGT
[2024-02-25] VITALS (7 sets, daily range): BP systolic 118–158; BP diastolic 56–74; PULSE 73–103; RESP 16–22; TEMP 36–36.3; O2SAT 94–98
[2024-02-25] MEDS: Octreotide Acetate 500 MCG in 0.9 % Sodium Chloride 500 ML 50.1 MCG IVCONT (00:35)
[2024-02-25] MEDS: cefEPime HCl 2 GM in 0.9 % Sodium Chloride 50 ML IV ×2 (03:00→16:21)
[2024-02-25] MEDS: Lactulose 20 GM/30 ML SOLUTION 30 GM PO ×4 (03:09→23:01)
[2024-02-25 03:39] LABS: Strep Pneumo Ag urine Not Detected (Not Detected)
[2024-02-25] MEDS: Pantoprazole Sodium 40 MG/10 ML VIAL IVPUSH ×2 (05:29→16:20)
[2024-02-25] MEDS: Levothyroxine Sodium 50 MCG TABLET PO (05:30)
[2024-02-25 07:14] LABS: Hematocrit 34.6 % (37.0-47.0); Hemoglobin 11.2 g/dl (12.0-16.0)
[2024-02-25 07:20] LABS: Creatinine Clr Calc Pharmacy 56.4; Estimated Glomerular Filt Rate 47
[2024-02-25 08:15] LABS: Glucose, Whole Blood 261 mg/dL (60-115)
[2024-02-25 08:51] LABS: Platelet Count 80 X10*3/uL (160-400)
[2024-02-25] MEDS: Insulin Glargine,Hum.rec.anlog 100 UNIT/ML 10 ML VIAL SUBCUT ×2 (09:12→23:03)
[2024-02-25] MEDS: 0.9 % Sodium Chloride Flush 3 ML SYRINGE IVFLUSH ×3 (09:13→23:06)
[2024-02-25] MEDS: Insulin Lispro 100 UNIT/ML 3 ML VIAL SUBCUT ×4 (09:13→23:02)
[2024-02-25] MEDS: Folic Acid 1 MG TABLET PO (11:02)
[2024-02-25] MEDS: rifAXIMin 550 MG TABLET G-TUBE ×2 (11:02→23:02)
[2024-02-25] MEDS: Metoprolol Tartrate 25 MG TABLET G-TUBE ×2 (11:02→23:02)
[2024-02-25] MEDS: Escitalopram Oxalate 10 MG TABLET PO (11:02)
[2024-02-25] MEDS: Ferrous Sulfate 324 MG TABLET.DR PO (11:02)
[2024-02-25] MEDS: Lidocaine HCl 1 % MPF 5 ML VIAL SUBCUT (11:14)
[2024-02-25 11:20] LABS: MN% 87.1 %; PMN% 12.9 %; WBC Peritoneal Fluid 0.199 X10*3/uL
[2024-02-25] MEDS: Octreotide Acetate 500 MCG in 0.9 % Sodium Chloride 500 ML 50 MCG IVCONT ×2 (11:21→23:01)
[2024-02-25 11:22] LABS: RBC Peritoneal Fluid < 0.002 X10*6/uL
--- NOTE | 2024-02-25 11:24 | MHC.SLORD ---
Speech Language Pathology Order Status: CHEMICAL DEPENDENCY NURSE attempted to see patient this morning for PO trials, but patient was unavailable, away at procedure. Family member was present and reported patient had been tolerating pureed diet and thin liquids without any difficulties. Continue with 1:1 feeding and aspiration precautions.
[2024-02-25 11:56] LABS: BF Shift QC OK YES; Lymphocyte Peritoneal Fl 37 %; Monocytes Peritoneal Fl 4 %; Neutrophils Peritoneal Fluid 5 %; Other Peritioneal Fl 54 %
[2024-02-25 12:28] LABS: Glucose, Whole Blood 322 mg/dL (60-115)
--- NOTE | 2024-02-25 12:44 | MHC.CM.PN ---
PER MD ROUNDS, PT WILL LIKEY REMAIN OVER THE WEEKEND DCP REMAINS [facility] FOLLOWING
--- NOTE | 2024-02-25 13:50 | P.PNNP_ITS ---
Subjective Subjective Date of Service: 02/25/24 Interval history: Events noted. All recent data reviewed. Physical Exam 2 Vital Signs: Vital Signs: Last Vital Signs Temp 96.8 F 02/25/24 12:00 Pulse 98 02/25/24 12:00 Resp 18 02/25/24 12:00 BP 135/65 02/25/24 12:00 Pulse Ox 96 02/25/24 12:00 O2 Del Method Room Air 02/25/24 12:00 O2 Flow Rate 2 02/21/24 12:32 Oxygen Flow Rate 2 02/21/24 12:42 BMI result Body Mass Index 45.9 Const: General: no acute distress Neck: Neck: Yes supple Resp: Auscultation: diminished lung sounds Cardio: Rate: regular rate GI: Palpation (GI): Soft to palpation Neuro: General: moves all extremities Objective Data Labs 02/25/24 06:38 02/25/24 06:38 Labs: Laboratory Results - last 24 hr 02/21/24 02/24/24 02/24/24 15:16 14:53 15:31 Hgb 11.4 L Hct 35.9 L Plt Count Sodium 141 Potassium 4.3 Chloride 112 H Carbon Dioxide 21 L Anion Gap 12 BUN 67 H Creatinine 1.13 Estim Creat Clear Calc 56.9 Estimated GFR 47 POC Glucose 304 H Random Glucose 385 H* Calcium 8.0 L Peritoneal WBC Peritoneal RBC Periton Neutrophils Periton Lymphocytes Peritoneal Monocytes Peritoneal Other Cells Ur Strep pneumoniae Ag Not Detected 02/24/24 02/25/24 02/25/24 19:52 06:38 08:08 Hgb 11.2 L Hct 34.6 L Plt Count 80 L D Sodium Potassium Chloride Carbon Dioxide Anion Gap BUN Creatinine 1.14 Estim Creat Clear Calc 56.4 Estimated GFR 47 POC Glucose 267 H 261 H Random Glucose Calcium Peritoneal WBC Peritoneal RBC Periton Neutrophils Periton Lymphocytes Peritoneal Monocytes Peritoneal Other Cells Ur Strep pneumoniae Ag 02/25/24 02/25/24 10:40 12:20 Hgb Hct Plt Count Sodium Potassium Chloride Carbon Dioxide Anion Gap BUN Creatinine Estim Creat Clear Calc Estimated GFR POC Glucose 322 H Random Glucose Calcium Peritoneal WBC 0.199 Peritoneal RBC < 0.002 Periton Neutrophils 5 Periton Lymphocytes 37 Peritoneal Monocytes 4 Peritoneal Other Cells 54 Ur Strep pneumoniae Ag Microbiology Microbiology Results: Microbiology 02/21/24 13:34 Blood - Venous Blood Culture - Preliminary No growth after 48 hours. 02/21/24 13:04 Blood - Venous Blood Culture - Preliminary No growth after 48 hours. Procedures Date of Service Date of Service: 02/25/24 Assessment & Plan Assessment and plan (1) CKD stage 3a, GFR 45-59 ml/min: Status: Acute Plan YORDAN superimposed on CKD due to hypoperfusion Creatinine is gradually trending down and is close to baseline. Hyperkalemia due to the combination of spironolactone in the setting of renal insufficiency. C/W current supportive care for now Progress Note: Quality Stroke Does the patient have a stroke diagnosis?: No
[2024-02-25 16:02] LABS: Glucose, Whole Blood 283 mg/dL (60-115)
--- NOTE | 2024-02-25 16:24 | P.PNIM_ITS ---
Subjective Subjective Date of Service: 02/25/24 Interval History: sepsis,pneumonia , acute toxic metabolic encephalopathy related to hepatic encephalopathy Review of Systems mental status improving somewhat tired passing stools no new episode of coffee ground or any melena Physical Exam 2 Vital Signs: Vital Signs: Last Vital Signs Temp 97.4 F 02/25/24 15:38 Pulse 73 02/25/24 15:38 Resp 18 02/25/24 15:38 BP 158/73 H 02/25/24 15:38 Pulse Ox 97 02/25/24 15:38 O2 Del Method Room Air 02/25/24 15:38 O2 Flow Rate 2 02/21/24 12:32 Oxygen Flow Rate 2 02/21/24 12:42 BMI result Body Mass Index 45.9 Appearance:more awake,alertx1. cvs: rrr, [id number]. res: clear to auscultation ,no rhonchii or wheezing abd: no rebound or guarding ,nt, bs present. has ngt( some dried blood at nasal meatus /ngt area -?irritation) ext pulses present , no cyanosis. neuro ,unable to obtain due to mental status . Objective Data Active Medications Acetaminophen (Acetaminophen 325 Mg Tablet) 650 mg PO Q6H PRN PRN Reason: Headache Acetaminophen (Acetaminophen Supp 650 Mg Supp.Rect) 650 mg [place] Q6H PRN PRN Reason: Fever Calcium Carbonate (Calcium Carbonate 750 Mg Tab.Chew) 750 mg PO Q6H PRN PRN Reason: Heartburn Escitalopram Oxalate (Escitalopram Oxalate 10 Mg Tablet) 10 mg PO DAILY COUNT INCLUDES [facility] Last Admin: 02/25/24 11:02 Dose: 10 mg Documented By: LINDA Ferrous Sulfate (Ferrous Sulfate 324 Mg Tablet.Dr) 324 mg PO DAILY COUNT INCLUDES THE [facility] Last Admin: 02/25/24 11:02 Dose: 324 mg Documented By: LINDA Fluticasone/Vilanterol (Fluticasone/Vilanterol 200/25 Blst.W.Dev) 1 puff INHALE DAILY COUNT INCLUDES THE [facility] Last Admin: 02/25/24 07:55 Dose: Not Given Documented By: JAMILA Non-Admin Reason: Patient Refused Folic Acid (Folic Acid 1 Mg Tablet) 1 mg PO DAILY COUNT INCLUDES THE [facility] Last Admin: 02/25/24 11:02 Dose: 1 mg Documented By: LINDA Glucose (Glucose Gel 15 Gm Gel..Gram.) 15 gm PO Q15M PRN; Protocol PRN Reason: per Hypoglycemia Standing Ord. Glucose (Glucose Gel 15 Gm Gel..Gram.) 15 gm PO Q15M PRN; Protocol PRN Reason: per Hypoglycemia Standing Ord. Hydralazine HCl (Hydralazine Hcl 20 Mg/Ml Vial) 10 mg IVPUSH Q6H PRN; Protocol PRN Reason: htn Dextrose (D10) 250 mls @ 750 mls/hr IV Q15M PRN; Protocol PRN Reason: per Hypoglycemia Standing Ord. Cefepime HCl 2 gm/ Sodium (Chloride) 50 mls @ 100 mls/hr IV Q12H COUNT INCLUDES THE [facility] Last Infusion: 02/25/24 03:30 Dose: Infused Documented By: ELIOT Dextrose (D10) 250 mls @ 750 mls/hr IV Q15M PRN; Protocol PRN Reason: per Hypoglycemia Standing Ord. Octreotide Acetate 500 mcg/ (Sodium Chloride) 501 mls @ 50.1 mls/hr IVCONT .Q10H COUNT INCLUDES THE [facility] Last Admin: 02/25/24 11:21 Dose: 49.9 mcg/hr, 50 mls/hr Documented By: LINDA Insulin Glargine (Insulin Glargine,Hum.Rec.Anlog 100 Unit/Ml 10 Ml Vial) 5 unit SUBCUT BID COUNT INCLUDES THE [facility] Last Admin: 02/25/24 09:12 Dose: 5 unit Documented By: LNIDA Insulin Human Lispro (Insulin Lispro 100 Unit/Ml 3 Ml Vial) 0 unit SUBCUT QIDACHS COUNT INCLUDES THE [facility]; Protocol Last Admin: 02/25/24 12:34 Dose: 8 unit Documented By: LINDA Lactulose (Lactulose 320 Gm/480 Ml Solution) 200 gm TX Q4H COUNT INCLUDES THE [facility] Last Admin: 02/25/24 11:28 Dose: Not Given Documented By: LNIDA Non-Admin Reason: using Po meds Lactulose (Lactulose 20 Gm/30 Ml Solution) 30 gm PO Q4H COUNT INCLUDES THE [facility] Last Admin: 02/25/24 11:01 Dose: 30 gm Documented By: LINDA Levalbuterol HCl (Levalbuterol Hcl 1.25 Mg/3 Ml Vial.Neb) 1.25 mg INHALE Q4H PRN PRN Reason: Shortness Of Breath/Wheezing Levothyroxine Sodium (Levothyroxine Sodium 50 Mcg Tablet) 50 mcg PO DAILY@0600 COUNT INCLUDES THE [facility] Last Admin: 02/25/24 05:30 Dose: 50 mcg Documented By: ELIOT Magnesium Hydroxide (Milk Of Magnesia 30 Ml Oral.Susp) 30 ml PO DAILY PRN PRN Reason: Constipation Melatonin (Melatonin 3 Mg Tablet) 6 mg PO BEDTIME PRN PRN Reason: Insomnia Metoprolol Tartrate (Metoprolol Tartrate 25 Mg Tablet) 25 mg G-TUBE BID COUNT INCLUDES THE [facility]; Protocol Last Admin: 02/25/24 11:02 Dose: 25 mg Documented By: LINDA Montelukast Sodium (Montelukast Sodium 10 Mg Tablet) 10 mg PO BEDTIME COUNT INCLUDES THE [facility] Last Admin: 02/24/24 20:24 Dose: 10 mg Documented By: LINDA Pantoprazole Sodium (Pantoprazole Sodium 40 Mg/10 Ml Vial) 40 mg IVPUSH BID@0630,1630 COUNT INCLUDES THE [facility] Last Admin: 02/25/24 05:29 Dose: 40 mg Documented By: ELIOT Polyethylene Glycol (Polyethylene Glycol 3350 17 Gm Powd.Pack) 17 gm PO DAILY PRN PRN Reason: Constipation Rifaximin (Rifaximin 550 Mg Tablet) 550 mg G-TUBE BID COUNT INCLUDES THE [facility] Last Admin: 02/25/24 11:02 Dose: 550 mg Documented By: LINDA Sodium Chloride (0.9 % Sodium Chloride Flush 3 Ml Syringe) 3 ml IVFLUSH QSHIFT COUNT INCLUDES THE [facility] Last Admin: 02/25/24 09:13 Dose: 3 ml Documented By: LINDA Labs 02/25/24 06:38 02/25/24 06:38 Labs: Laboratory Results - last 24 hr 02/21/24 02/24/24 02/25/24 15:16 19:52 06:38 Plt Count 80 L D Estim Creat Clear Calc 56.4 Estimated GFR 47 POC Glucose 267 H Peritoneal WBC Peritoneal RBC Periton Neutrophils Periton Lymphocytes Peritoneal Monocytes Peritoneal Other Cells Ur Strep pneumoniae Ag Not Detected 02/25/24 02/25/24 02/25/24 08:08 10:40 12:20 Plt Count Estim Creat Clear Calc Estimated GFR POC Glucose 261 H 322 H Peritoneal WBC 0.199 Peritoneal RBC < 0.002 Periton Neutrophils 5 Periton Lymphocytes 37 Peritoneal Monocytes 4 Peritoneal Other Cells 54 Ur Strep pneumoniae Ag 02/25/24 15:42 Plt Count Estim Creat Clear Calc Estimated GFR POC Glucose 283 H Peritoneal WBC Peritoneal RBC Periton Neutrophils Periton Lymphocytes Peritoneal Monocytes Peritoneal Other Cells Ur Strep pneumoniae Ag Microbiology Microbiology Results: Microbiology 02/25/24 10:40 Gram Stain - Final Ascites Fluid Assessment and Plan (1) Increased ammonia level: Status: Acute (2) Pneumonia: Status: Acute Assessment and Plan: 73-year-old female with a PMH significant for?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 Recently admitted 02/10-02/16 for YORDAN complicated by acute hyponatremia and also noted to have new onset atrial fibrillation with RVR. She will be admitted for further management of acute hepatic encephalopathy and multifocal pneumonia with sepsis. acute toxic metabolic encephalopathy related to hepatic encephalopathy more awake head CT negative for acute intracranial abnormality ammonia levels trending down plan keep ngt lactulose switched to TX , switch to po lactulose if able to take po. 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 Acute multifocal pneumonia with sepsis (sepsis resolved ). blood culture negative @48 hrs nasal mrsa: negative Legionella antigen-pending , strep pneumo antigen-negative off IV vancomycin (nasal mrsa negative)and cefepime (initiated 02/20),symptomatic management follow CBC, cultures ? coffee ground/drak stools-( on 02/21/23) no more episodes h/h-stable fobt ppi/octreotide. may start ac if h/h remain stable in am and no new episodes of bleeding . paroxysmal atrial fibrillation with RVR-rapid rate likely related to sepsis/infection as above.vent rate 80's hold Eliquis today ,will start once she is more awake /alert. continue metoprolol 25 mg po bid. acute hyperkalemia seems improved nephrology following elevated troponins -initial 107, repeat 99 -EKG without acute ischemic changes possible elevated trops sec to sepsis/pneumonia/afib. Grimes cirrhosis ascitic fluid tap- 0.45 liter fluid removed fluid analysis less likley sbp, fluid culture-pending but grosslly less likley sbp no longer on diuretics due to recent admission with YORDAN chronic thrombocytopenia-related to cirrhosis platlets slightly trending down (likely related to liver disease -not due to sepsis) chronic hyponatremia -likely also related to cirrhosis asthma/COPD overlap -no hypoxia, no acute exacerbation -continue home inhalers, albuterol p.r.n. insulin-dependent type 2 diabetes with hyperglycemia -history of hyperglycemia that is difficult to control control -patient is NPO, hold lantus -POC glucose, sliding scale ,avoid coverage below 200 . hypothyroidism -continue levothyroxine mood disorder -continue home medications DVT prophylaxis-Eliquis Full code Med rec pending ongoing inpatient stay need for management of acute hepatic encephalopathy requiring lactulose titration and close monitoring of mental status. She will also require IV antibiotics due to multifocal pneumonia with sepsis. hcp updated in detail. Quality Stroke Does the patient have a stroke diagnosis?: No VTE Prior VTE?: No VTE Risk Level:: Medical - moderate - high VTE Device Contraindication: Treatment Not Indicated VTE Drug Contraindication: N/A - Med Ordered
[2024-02-25 20:11] LABS: Glucose, Whole Blood 345 mg/dL (60-115)
[2024-02-25] MEDS: Montelukast Sodium 10 MG TABLET PO (23:19)
[2024-02-26] VITALS (8 sets, daily range): BP systolic 112–148; BP diastolic 60–76; PULSE 76–116; RESP 16–20; TEMP 36–36.2; O2SAT 95–98
[2024-02-26] MEDS: cefEPime HCl 2 GM in 0.9 % Sodium Chloride 50 ML IV ×2 (01:45→14:20)
[2024-02-26] MEDS: Lactulose 20 GM/30 ML SOLUTION 30 GM PO ×6 (01:45→20:58)
[2024-02-26] MEDS: Levothyroxine Sodium 50 MCG TABLET PO (05:01)
[2024-02-26] MEDS: Pantoprazole Sodium 40 MG/10 ML VIAL IVPUSH (05:01)
[2024-02-26 07:36] LABS: Hematocrit 38.7 % (37.0-47.0); Hemoglobin 11.9 g/dl (12.0-16.0)
[2024-02-26 07:54] LABS: Legionella Ag Urine Not Detected (Not Detected)
[2024-02-26 07:54] LABS: Glucose, Whole Blood 157 mg/dL (60-115)
[2024-02-26 08:10] LABS: Anion Gap 9 (12-20); Blood Urea Nitrogen 54 mg/dL (9-16); Calcium 8.4 mg/dL (8.4-10.2); Carbon Dioxide 27 mmol/L (22-29); Chloride 113 mmol/L (96-108); Creatinine Clr Calc Pharmacy 48.7; Estimated Glomerular Filt Rate 39; Glucose Random 173 mg/dL (60-115); Potassium 3.8 mmol/L (3.3-5.1); Sodium 145 mmol/L (135-145)
[2024-02-26] MEDS: Fluticasone/Vilanterol 200/25 BLST.W.DEV 1 PUFF INHALE (08:13)
[2024-02-26 08:41] LABS: Platelet Count 71 X10*3/uL (160-400)
[2024-02-26] MEDS: Folic Acid 1 MG TABLET PO (11:15)
[2024-02-26] MEDS: Furosemide 20 MG/2 ML VIAL IVPUSH (11:15)
[2024-02-26] MEDS: Metoprolol Tartrate 25 MG TABLET G-TUBE ×2 (11:15→20:59)
[2024-02-26] MEDS: Ferrous Sulfate 324 MG TABLET.DR PO (11:15)
[2024-02-26] MEDS: Escitalopram Oxalate 10 MG TABLET PO (11:15)
[2024-02-26] MEDS: Insulin Glargine,Hum.rec.anlog 100 UNIT/ML 10 ML VIAL SUBCUT ×2 (11:16→22:20)
[2024-02-26] MEDS: 0.9 % Sodium Chloride Flush 3 ML SYRINGE IVFLUSH ×3 (11:20→21:00)
[2024-02-26] MEDS: Octreotide Acetate 500 MCG in 0.9 % Sodium Chloride 500 ML 50 MCG IVCONT (11:23)
[2024-02-26 11:57] LABS: Glucose, Whole Blood 299 mg/dL (60-115)
[2024-02-26] MEDS: rifAXIMin 550 MG TABLET G-TUBE ×2 (12:01→21:00)
[2024-02-26] MEDS: Insulin Lispro 100 UNIT/ML 3 ML VIAL SUBCUT ×4 (14:02→22:19)
--- NOTE | 2024-02-26 14:06 | PC.NURSE ---
Ngtube removed per md robles
--- NOTE | 2024-02-26 15:00 | HO.PM.IMPN ---
Subjective Subjective Date of Service: 02/26/24 Interval History: sepsis,pneumonia , acute toxic metabolic encephalopathy related to hepatic encephalopathy Physical Exam Vital Signs: Vital Signs: Last Vital Signs Temp 97.2 F 02/26/24 10:48 Pulse 95 02/26/24 10:48 Resp 18 02/26/24 10:48 BP 115/64 02/26/24 10:48 Pulse Ox 97 02/26/24 10:48 O2 Del Method Room Air 02/26/24 10:48 O2 Flow Rate 2 02/21/24 12:32 Oxygen Flow Rate 2 02/21/24 12:42 BMI result Body Mass Index 45.9 Objective Data Active Medications Acetaminophen (Acetaminophen 325 Mg Tablet) 650 mg PO Q6H PRN PRN Reason: Headache Acetaminophen (Acetaminophen Supp 650 Mg Supp.Rect) 650 mg RI Q6H PRN PRN Reason: Fever Calcium Carbonate (Calcium Carbonate 750 Mg Tab.Chew) 750 mg PO Q6H PRN PRN Reason: Heartburn Escitalopram Oxalate (Escitalopram Oxalate 10 Mg Tablet) 10 mg PO DAILY [facility] Last Admin: 02/26/24 11:15 Dose: 10 mg Documented By: AMY Ferrous Sulfate (Ferrous Sulfate 324 Mg Tablet.Dr) 324 mg PO DAILY [facility] Last Admin: 02/26/24 11:15 Dose: 324 mg Documented By: AMY Fluticasone/Vilanterol (Fluticasone/Vilanterol 200/25 Blst.W.Dev) 1 puff INHALE DAILY [facility] Last Admin: 02/26/24 08:13 Dose: 1 puff Documented By: JAMILA Folic Acid (Folic Acid 1 Mg Tablet) 1 mg PO DAILY [facility] Last Admin: 02/26/24 11:15 Dose: 1 mg Documented By: AMY Furosemide (Furosemide 20 Mg/2 Ml Vial) 20 mg IVPUSH DAILY [facility]; Protocol Last Admin: 02/26/24 11:15 Dose: 20 mg Documented By: AMY Glucose (Glucose Gel 15 Gm Gel..Gram.) 15 gm PO Q15M PRN; Protocol PRN Reason: per Hypoglycemia Standing Ord. Glucose (Glucose Gel 15 Gm Gel..Gram.) 15 gm PO Q15M PRN; Protocol PRN Reason: per Hypoglycemia Standing Ord. Hydralazine HCl (Hydralazine Hcl 20 Mg/Ml Vial) 10 mg IVPUSH Q6H PRN; Protocol PRN Reason: htn Dextrose (D10) 250 mls @ 750 mls/hr IV Q15M PRN; Protocol PRN Reason: per Hypoglycemia Standing Ord. Cefepime HCl 2 gm/ Sodium (Chloride) 50 mls @ 100 mls/hr IV Q12H [facility] Last Infusion: 02/26/24 14:54 Dose: Infused Documented By: AMY Dextrose (D10) 250 mls @ 750 mls/hr IV Q15M PRN; Protocol PRN Reason: per Hypoglycemia Standing Ord. Octreotide Acetate 500 mcg/ (Sodium Chloride) 501 mls @ 50.1 mls/hr IVCONT .Q10H [facility] Last Admin: 02/26/24 11:23 Dose: 49.9 mcg/hr, 50 mls/hr Documented By: AMY Insulin Glargine (Insulin Glargine,Hum.Rec.Anlog 100 Unit/Ml 10 Ml Vial) 5 unit SUBCUT BID [facility] Last Admin: 02/26/24 11:16 Dose: 5 unit Documented By: AMY Insulin Human Lispro (Insulin Lispro 100 Unit/Ml 3 Ml Vial) 0 unit SUBCUT QIDACHS [facility]; Protocol Last Admin: 02/26/24 14:02 Dose: 6 unit Documented By: AMY Lactulose (Lactulose 320 Gm/480 Ml Solution) 200 gm RI Q4H [facility] Last Admin: 02/26/24 14:13 Dose: Not Given Documented By: AMY Non-Admin Reason: oral Lactulose (Lactulose 20 Gm/30 Ml Solution) 30 gm PO Q4H [facility] Last Admin: 02/26/24 14:01 Dose: 30 gm Documented By: AMY Levalbuterol HCl (Levalbuterol Hcl 1.25 Mg/3 Ml Vial.Neb) 1.25 mg INHALE Q4H PRN PRN Reason: Shortness Of Breath/Wheezing Levothyroxine Sodium (Levothyroxine Sodium 50 Mcg Tablet) 50 mcg PO DAILY@0600 [facility] Last Admin: 02/26/24 05:01 Dose: 50 mcg Documented By: JODY Magnesium Hydroxide (Milk Of Magnesia 30 Ml Oral.Susp) 30 ml PO DAILY PRN PRN Reason: Constipation Melatonin (Melatonin 3 Mg Tablet) 6 mg PO BEDTIME PRN PRN Reason: Insomnia Metoprolol Tartrate (Metoprolol Tartrate 25 Mg Tablet) 25 mg G-TUBE BID [facility]; Protocol Last Admin: 02/26/24 11:15 Dose: 25 mg Documented By: AMY Montelukast Sodium (Montelukast Sodium 10 Mg Tablet) 10 mg PO BEDTIME [facility] Last Admin: 02/25/24 23:19 Dose: 10 mg Documented By: JODY Polyethylene Glycol (Polyethylene Glycol 3350 17 Gm Powd.Pack) 17 gm PO DAILY PRN PRN Reason: Constipation Rifaximin (Rifaximin 550 Mg Tablet) 550 mg G-TUBE BID [facility] Last Admin: 02/26/24 12:01 Dose: 550 mg Documented By: AMY Sodium Chloride (0.9 % Sodium Chloride Flush 3 Ml Syringe) 3 ml IVFLUSH QSHIFT [facility] Last Admin: 02/26/24 14:54 Dose: 3 ml Documented By: AMY Labs 02/26/24 07:08 02/26/24 07:08 Labs: Laboratory Results - last 24 hr 02/21/24 02/25/24 02/25/24 15:16 15:42 20:05 Plt Count Anion Gap Estim Creat Clear Calc Estimated GFR POC Glucose 283 H 345 H Random Glucose Calcium Ur L.pneumophila Ag Not Detected 02/26/24 02/26/24 02/26/24 07:08 07:48 11:52 Plt Count 71 L Anion Gap 9 L Estim Creat Clear Calc 48.7 Estimated GFR 39 POC Glucose 157 H 299 H Random Glucose 173 H Calcium 8.4 Ur L.pneumophila Ag Microbiology Microbiology Results: Microbiology 02/25/24 10:40 Gram Stain - Final Ascites Fluid Anaerobic Culture - Preliminary No growth to date. Body Fluid Culture - Preliminary No growth to date. 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 due to altered mental status. Recently admitted 02/10-02/16 for YORDAN complicated by acute hyponatremia and also noted to have new onset atrial fibrillation with RVR. She will be admitted for further management of acute hepatic encephalopathy and multifocal pneumonia with sepsis. acute toxic metabolic encephalopathy related to hepatic encephalopathy more awake head CT negative for acute intracranial abnormality ammonia levels trending down plan take ngt lactulose switched to Po. 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 Acute multifocal pneumonia with sepsis (sepsis resolved ). blood culture negative @48 hrs nasal mrsa: negative Legionella antigen-pending , strep pneumo antigen-negative off IV vancomycin (nasal mrsa negative)and cefepime (initiated 02/20),symptomatic management follow CBC, cultures ? coffee ground/drak stools-( on 02/21/23) no more episodes h/h-stable fobt stop iv ppi/octerotide will switch to po omeprazole. d/w family -for now want her to get more awake before starting eliquis. paroxysmal atrial fibrillation with RVR-rapid rate likely related to sepsis/infection as above.vent rate 80's hold Eliquis ,will start once she is more awake /alert. continue metoprolol 25 mg po bid. acute hyperkalemia seems improved nephrology following elevated troponins -initial 107, repeat 99 -EKG without acute ischemic changes possible elevated trops sec to sepsis/pneumonia/afib. Grimes cirrhosis ascitic fluid tap- 0.45 liter fluid removed fluid analysis less likley sbp, fluid culture-pending but grosslly less likley sbp added lasix low dose . chronic thrombocytopenia-related to cirrhosis platlets slightly trending down (likely related to liver disease -not due to sepsis) chronic hyponatremia -likely also related to cirrhosis asthma/COPD overlap -no hypoxia, no acute exacerbation -continue home inhalers, albuterol p.r.n. insulin-dependent type 2 diabetes with hyperglycemia -history of hyperglycemia that is difficult to control control -patient is NPO, hold lantus -POC glucose, sliding scale ,avoid coverage below 200 . hypothyroidism -continue levothyroxine mood disorder -continue home medications DVT prophylaxis-Eliquis Full code Med rec pending ongoing inpatient stay need for management of acute hepatic encephalopathy requiring lactulose titration and close monitoring of mental status. She will also require IV antibiotics due to multifocal pneumonia with sepsis. hcp updated in detail. Quality Stroke Does the patient have a stroke diagnosis?: No VTE Prior VTE?: No VTE Risk Level:: Medical - moderate - high VTE Device Contraindication: Treatment Not Indicated VTE Drug Contraindication: N/A - Med Ordered
[2024-02-26 16:37] LABS: Glucose, Whole Blood 358 mg/dL (60-115)
[2024-02-26] MEDS: Omeprazole 20 MG CAPSULE.DR PO (16:59)
[2024-02-26] MEDS: Montelukast Sodium 10 MG TABLET PO (21:00)
[2024-02-26] MEDS: Acetaminophen 325 MG TABLET 650 MG PO (21:09)
[2024-02-26 22:32] LABS: Glucose, Whole Blood 312 mg/dL (60-115)
[2024-02-27] VITALS (8 sets, daily range): BP systolic 113–146; BP diastolic 57–76; PULSE 79–99; RESP 16–20; TEMP 36.1–37; O2SAT 95–99; BMI 49.1
[2024-02-27] MEDS: Lactulose 20 GM/30 ML SOLUTION 30 GM PO ×5 (00:15→21:45)
[2024-02-27] MEDS: cefEPime HCl 2 GM in 0.9 % Sodium Chloride 50 ML IV ×2 (03:36→17:22)
[2024-02-27] MEDS: Levothyroxine Sodium 50 MCG TABLET PO (05:29)
[2024-02-27] MEDS: Omeprazole 20 MG CAPSULE.DR PO ×2 (05:29→17:24)
[2024-02-27] MEDS: Fluticasone/Vilanterol 200/25 BLST.W.DEV 1 PUFF INHALE (07:44)
[2024-02-27 07:50] LABS: Glucose, Whole Blood 181 mg/dL (60-115)
[2024-02-27 08:31] LABS: Creatinine Clr Calc Pharmacy 60.4; Estimated Glomerular Filt Rate 48
[2024-02-27] MEDS: Insulin Lispro 100 UNIT/ML 3 ML VIAL SUBCUT ×4 (08:51→22:11)
[2024-02-27] MEDS: Insulin Glargine,Hum.rec.anlog 100 UNIT/ML 10 ML VIAL SUBCUT (08:51)
[2024-02-27] MEDS: Furosemide 20 MG TABLET PO (08:52)
[2024-02-27] MEDS: rifAXIMin 550 MG TABLET G-TUBE ×2 (08:52→21:45)
[2024-02-27] MEDS: Metoprolol Tartrate 25 MG TABLET G-TUBE ×2 (08:52→21:45)
[2024-02-27] MEDS: Ferrous Sulfate 324 MG TABLET.DR PO (08:52)
[2024-02-27] MEDS: Folic Acid 1 MG TABLET PO (08:52)
[2024-02-27] MEDS: Escitalopram Oxalate 10 MG TABLET PO (08:52)
[2024-02-27] MEDS: 0.9 % Sodium Chloride Flush 3 ML SYRINGE IVFLUSH ×3 (08:53→21:46)
[2024-02-27 11:40] LABS: Glucose, Whole Blood 257 mg/dL (60-115)
--- NOTE | 2024-02-27 12:27 | HO.PM.IMPN ---
Subjective Subjective Date of Service: 02/27/24 Interval History: sepsis,pneumonia , acute toxic metabolic encephalopathy related to hepatic encephalopathy Review of Systems mental status seems to be improving slowly tolering diet -pureed sob /cough also improving Review of Systems: Yes all other systems are reviewed and are negative Physical Exam Vital Signs: Vital Signs: Last Vital Signs Temp 97.0 F 02/27/24 11:27 Pulse 92 02/27/24 11:27 Resp 20 02/27/24 11:27 BP 140/73 H 02/27/24 11:27 Pulse Ox 96 02/27/24 11:27 O2 Del Method Room Air 02/27/24 11:27 O2 Flow Rate 2 02/21/24 12:32 Oxygen Flow Rate 2 02/21/24 12:42 BMI result Body Mass Index 49.1 Appearance:more awake,alertx2. cvs: rrr, [id number]. res: clear to auscultation ,no rhonchii or wheezing abd: no rebound or guarding ,nt, bs present. will remove rectal tube today. ext pulses present , no cyanosis,has edema . neuro : move ext ,follow simple commands . Objective Data Active Medications Acetaminophen (Acetaminophen 325 Mg Tablet) 650 mg PO Q6H PRN PRN Reason: Headache Last Admin: 02/26/24 21:09 Dose: 650 mg Documented By: VINCENT Acetaminophen (Acetaminophen Supp 650 Mg Supp.Rect) 650 mg AR Q6H PRN PRN Reason: Fever Calcium Carbonate (Calcium Carbonate 750 Mg Tab.Chew) 750 mg PO Q6H PRN PRN Reason: Heartburn Escitalopram Oxalate (Escitalopram Oxalate 10 Mg Tablet) 10 mg PO DAILY [facility] Last Admin: 02/27/24 08:52 Dose: 10 mg Documented By: AMY Ferrous Sulfate (Ferrous Sulfate 324 Mg Tablet.Dr) 324 mg PO DAILY [facility] Last Admin: 02/27/24 08:52 Dose: 324 mg Documented By: AMY Fluticasone/Vilanterol (Fluticasone/Vilanterol 200/25 Blst.W.Dev) 1 puff INHALE DAILY [facility] Last Admin: 02/27/24 07:44 Dose: 1 puff Documented By: FLAKITA Folic Acid (Folic Acid 1 Mg Tablet) 1 mg PO DAILY [facility] Last Admin: 02/27/24 08:52 Dose: 1 mg Documented By: AMY Furosemide (Furosemide 20 Mg Tablet) 20 mg PO DAILY [facility]; Protocol Last Admin: 02/27/24 08:52 Dose: 20 mg Documented By: AMY Glucose (Glucose Gel 15 Gm Gel..Gram.) 15 gm PO Q15M PRN; Protocol PRN Reason: per Hypoglycemia Standing Ord. Glucose (Glucose Gel 15 Gm Gel..Gram.) 15 gm PO Q15M PRN; Protocol PRN Reason: per Hypoglycemia Standing Ord. Hydralazine HCl (Hydralazine Hcl 20 Mg/Ml Vial) 10 mg IVPUSH Q6H PRN; Protocol PRN Reason: htn Dextrose (D10) 250 mls @ 750 mls/hr IV Q15M PRN; Protocol PRN Reason: per Hypoglycemia Standing Ord. Cefepime HCl 2 gm/ Sodium (Chloride) 50 mls @ 100 mls/hr IV Q12H [facility] Last Infusion: 02/27/24 04:33 Dose: Infused Documented By: DENVER Dextrose (D10) 250 mls @ 750 mls/hr IV Q15M PRN; Protocol PRN Reason: per Hypoglycemia Standing Ord. Insulin Glargine (Insulin Glargine,Hum.Rec.Anlog 100 Unit/Ml 10 Ml Vial) 10 unit SUBCUT BID [facility] Insulin Human Lispro (Insulin Lispro 100 Unit/Ml 3 Ml Vial) 0 unit SUBCUT QIDACHS [facility]; Protocol Last Admin: 02/27/24 08:51 Dose: 2 unit Documented By: AMY Lactulose (Lactulose 20 Gm/30 Ml Solution) 30 gm PO TID [facility] Last Admin: 02/27/24 08:53 Dose: 30 gm Documented By: AMY Levalbuterol HCl (Levalbuterol Hcl 1.25 Mg/3 Ml Vial.Neb) 1.25 mg INHALE Q4H PRN PRN Reason: Shortness Of Breath/Wheezing Levothyroxine Sodium (Levothyroxine Sodium 50 Mcg Tablet) 50 mcg PO DAILY@0600 [facility] Last Admin: 02/27/24 05:29 Dose: 50 mcg Documented By: DENVER Magnesium Hydroxide (Milk Of Magnesia 30 Ml Oral.Susp) 30 ml PO DAILY PRN PRN Reason: Constipation Melatonin (Melatonin 3 Mg Tablet) 6 mg PO BEDTIME PRN PRN Reason: Insomnia Metoprolol Tartrate (Metoprolol Tartrate 25 Mg Tablet) 25 mg G-TUBE BID [facility]; Protocol Last Admin: 02/27/24 08:52 Dose: 25 mg Documented By: AMY Montelukast Sodium (Montelukast Sodium 10 Mg Tablet) 10 mg PO BEDTIME [facility] Last Admin: 02/26/24 21:00 Dose: 10 mg Documented By: VINCENT Omeprazole (Omeprazole 20 Mg Capsule.) 20 mg PO BID@0630,1630 [facility] Last Admin: 02/27/24 05:29 Dose: 20 mg Documented By: DENVER Polyethylene Glycol (Polyethylene Glycol 3350 17 Gm Powd.Pack) 17 gm PO DAILY PRN PRN Reason: Constipation Rifaximin (Rifaximin 550 Mg Tablet) 550 mg G-TUBE BID [facility] Last Admin: 02/27/24 08:52 Dose: 550 mg Documented By: AMY Sodium Chloride (0.9 % Sodium Chloride Flush 3 Ml Syringe) 3 ml IVFLUSH QSHIFT [facility] Last Admin: 02/27/24 08:53 Dose: 3 ml Documented By: AMY Labs 02/26/24 07:08 02/27/24 07:37 Labs: Laboratory Results - last 24 hr 02/26/24 02/26/24 02/27/24 16:33 22:10 07:37 Estim Creat Clear Calc 60.4 Estimated GFR 48 POC Glucose 358 H* 312 H 02/27/24 02/27/24 07:45 11:30 Estim Creat Clear Calc Estimated GFR POC Glucose 181 H 257 H Microbiology Microbiology Results: Microbiology 02/21/24 13:34 Blood Culture - Final Blood - Venous No growth after 5 days. 02/21/24 13:04 Blood Culture - Final Blood - Venous No growth after 5 days. 02/25/24 10:40 Gram Stain - Final Ascites Fluid Anaerobic Culture - Preliminary No growth to date. Body Fluid Culture - Preliminary No growth to date. 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 due to altered mental status. Recently admitted 02/10-02/16 for YORDAN complicated by acute hyponatremia and also noted to have new onset atrial fibrillation with RVR. She will be admitted for further management of acute hepatic encephalopathy and multifocal pneumonia with sepsis. acute toxic metabolic encephalopathy related to hepatic encephalopathy more awake head CT negative for acute intracranial abnormality ammonia levels trending down plan : mentation is improving off ngt ,rectal tube removal today FORMULA TECHNICIAN evaluation -purreed/thin liquids. conitnue lactulose switched to Po adjusted. Acute multifocal pneumonia with sepsis (sepsis resolved ). blood culture negative neg nasal mrsa: negative. ascitis fluid cultures -negative prelim. Legionella antigen/strep pneumo antigen-negative off IV vancomycin (nasal mrsa negative)and cefepime (initiated 02/20),symptomatic management follow CBC, cultures ? coffee ground/drak stools-( on 02/21/23) no more episodes h/h-stable stop iv ppi/octerotide will switch to po omeprazole. d/w family -moniter h/h ,has some worsening of thrombocytopenia -moniter cbc/to plan for restarting eliquis in am. paroxysmal atrial fibrillation with RVR-rapid rate likely related to sepsis/infection as above.vent rate 80's hold Eliquis. continue metoprolol 25 mg po bid. acute hyperkalemia seems improved nephrology following elevated troponins -initial 107, repeat 99 -EKG without acute ischemic changes possible elevated trops sec to sepsis/pneumonia/afib. Grimes cirrhosis ascitic fluid tap- 0.45 liter fluid removed fluid analysis less likley sbp, fluid culture-neg/prelim. switch to po lasix low dose . chronic thrombocytopenia-related to cirrhosis platlets somewhat trending down (likely related to liver disease -not due to sepsis). chronic hyponatremia -likely also related to cirrhosis asthma/COPD overlap -no hypoxia, no acute exacerbation -continue home inhalers, albuterol p.r.n. insulin-dependent type 2 diabetes with hyperglycemia -history of hyperglycemia that is difficult to control control -patient is NPO, hold lantus -POC glucose, sliding scale ,avoid coverage below 200 . hypothyroidism -continue levothyroxine mood disorder -continue home medications DVT prophylaxis-Eliquis Full code Med rec pending ongoing inpatient stay need for management of acute hepatic encephalopathy requiring lactulose titration and close monitoring of mental status. She will also require IV antibiotics due to multifocal pneumonia with sepsis. hcp updated in detail. Quality Stroke Does the patient have a stroke diagnosis?: No VTE Prior VTE?: No VTE Risk Level:: Medical - moderate - high VTE Device Contraindication: Treatment Not Indicated VTE Drug Contraindication: N/A - Med Ordered
--- NOTE | 2024-02-27 13:25 | PC.NURSE ---
patient up to chair with great difficulty, 2+ max assist or zoraida, patient unable to stand upright under her own power, weakness, winded with movement.
--- NOTE | 2024-02-27 13:32 | PC.NURSE ---
Rectal tube removed per md robles
[2024-02-27 16:20] LABS: Glucose, Whole Blood 351 mg/dL (60-115)
[2024-02-27] MEDS: Montelukast Sodium 10 MG TABLET PO (21:45)
[2024-02-27 22:10] LABS: Glucose, Whole Blood 307 mg/dL (60-115)
[2024-02-27] MEDS: Insulin Glargine,Hum.rec.anlog 100 UNIT/ML 10 ML VIAL 10 UNIT SUBCUT (22:12)
[2024-02-28] VITALS (9 sets, daily range): BP systolic 125–140; BP diastolic 59–69; PULSE 72–89; RESP 19–20; TEMP 36.1–37.1; O2SAT 96–98
[2024-02-28] MEDS: cefEPime HCl 2 GM in 0.9 % Sodium Chloride 50 ML IV ×2 (03:28→14:36)
[2024-02-28] MEDS: Levothyroxine Sodium 50 MCG TABLET PO (05:41)
[2024-02-28] MEDS: Omeprazole 20 MG CAPSULE.DR PO ×2 (05:41→16:44)
[2024-02-28 06:54] LABS: Creatinine Clr Calc Pharmacy 45.9; Estimated Glomerular Filt Rate 35
[2024-02-28 07:38] LABS: Glucose, Whole Blood 157 mg/dL (60-115)
[2024-02-28] MEDS: Fluticasone/Vilanterol 200/25 BLST.W.DEV 1 PUFF INHALE (08:21)
--- NOTE | 2024-02-28 09:53 | MHC.CM.PN ---
EMR REVIEWED, PER HOSPITALIST PT NOT YET READY FOR DC BACK TO [facility], SNF UPDATED AND CM WILL CONT TO FOLLOW DC NEEDS.
[2024-02-28] MEDS: 0.9 % Sodium Chloride Flush 3 ML SYRINGE IVFLUSH ×3 (10:21→19:55)
[2024-02-28] MEDS: Metoprolol Tartrate 25 MG TABLET G-TUBE (10:22)
[2024-02-28] MEDS: Lactulose 20 GM/30 ML SOLUTION 30 GM PO ×2 (10:22→19:56)
[2024-02-28] MEDS: Escitalopram Oxalate 10 MG TABLET PO (10:22)
[2024-02-28] MEDS: Ferrous Sulfate 324 MG TABLET.DR PO (10:23)
[2024-02-28] MEDS: Folic Acid 1 MG TABLET PO (10:23)
[2024-02-28] MEDS: Insulin Glargine,Hum.rec.anlog 100 UNIT/ML 10 ML VIAL 10 UNIT SUBCUT ×2 (10:23→16:45)
[2024-02-28] MEDS: rifAXIMin 550 MG TABLET G-TUBE (10:23)
[2024-02-28] MEDS: Albumin Human 25 % 100 ML IV ×3 (10:24→19:55)
[2024-02-28 11:20] LABS: Glucose, Whole Blood 282 mg/dL (60-115)
[2024-02-28] MEDS: Insulin Lispro 100 UNIT/ML 3 ML VIAL SUBCUT ×3 (11:35→22:07)
--- NOTE | 2024-02-28 11:59 | P.PNNP_ITS ---
Subjective Subjective Date of Service: 02/28/24 Interval history: Events noted. All recent data reviewed Physical Exam 2 Vital Signs: Vital Signs: Last Vital Signs Temp 96.9 F 02/28/24 11:07 Pulse 88 02/28/24 11:07 Resp 19 02/28/24 11:07 BP 140/59 H 02/28/24 11:07 Pulse Ox 97 02/28/24 11:07 O2 Del Method Room Air 02/28/24 11:07 O2 Flow Rate 1 02/27/24 20:00 Oxygen Flow Rate 2 02/21/24 12:42 BMI result Body Mass Index 49.1 Const: General: no acute distress Neck: Neck: Yes supple Resp: Auscultation: diminished lung sounds Cardio: Rate: regular rate GI: Palpation (GI): Soft to palpation Neuro: General: moves all extremities Objective Data Labs 02/26/24 07:08 02/28/24 05:58 Labs: Laboratory Results - last 24 hr 02/27/24 02/27/24 02/28/24 16:16 22:00 05:58 Hold Purple Top SEE NOTE Creatinine 1.46 H Estim Creat Clear Calc 45.9 Estimated GFR 35 POC Glucose 351 H* 307 H 02/28/24 02/28/24 07:27 11:10 Hold Purple Top Creatinine Estim Creat Clear Calc Estimated GFR POC Glucose 157 H 282 H Microbiology Microbiology Results: Microbiology 02/25/24 10:40 Ascites Fluid Gram Stain - Final 02/25/24 10:40 Ascites Fluid Anaerobic Culture - Preliminary No growth to date. 02/25/24 10:40 Ascites Fluid Body Fluid Culture - Final No growth after 2 days 02/21/24 13:34 Blood - Venous Blood Culture - Final No growth after 5 days. 02/21/24 13:04 Blood - Venous Blood Culture - Final No growth after 5 days. Procedures Date of Service Date of Service: 02/28/24 Assessment & Plan Assessment and plan (1) CKD stage 3a, GFR 45-59 ml/min: Status: Acute Plan YORDAN superimposed on CKD due to hypoperfusion Creatinine is close to baseline. H/O Hyperkalemia due to the combination of spironolactone in the setting of renal insufficiency. C/W current supportive care for now Progress Note: Quality Stroke Does the patient have a stroke diagnosis?: No
--- NOTE | 2024-02-28 15:03 | MHC.SL.SWA ---
Risk of Aspiration Due to: Lethargy Dysphasia Diet Status: Recommend UPGRADE to GROUND/MECH ALTERED solids (NDD2). Continue w/ THIN liquids (NO STRAW) and pills CRUSHED in puree. Recommend TOOLS PROGRAMMER re-eval on 02/28 for possible upgrade. Liquid Consistency and Strategies for Safe Swallow: Liquid Intake Recommendation: Thin Solid Food Consistency: Dietary Recommendations: Grnd/Mech Altered (NDD2) Oral Medication Intake: Crushed with Puree Please contact the pharmacy regarding appropriate crushable or liquid drug formulations that are available whenever modified delivery is recommended. Compensatory Strategies and Precautions to be Taken for Safe Swallow: Sitting Upright (90 deg) No Straw Liquids from Spoon Small Bites and Sips Alternate Liquids/Solids Rate of Ingestion Change Oral Check Supervision While Eating and Drinking for Safe Swallow: Total Assistance (1:1) Swallowing Recommended Treatments: Compens. Strategy Educat. Recommendation for Speech: Inpatient Speech Therapy Ecclesiastical Worker Clinican/Clinical Fellow: No Supervisory Statement: I have reviewed and agree with the student/clinical fellow's documentation: N/A Speech Language Pathologist: Jelena Ricks M.A., CCC-TOOLS PROGRAMMER
[2024-02-28 15:51] LABS: Glucose, Whole Blood 465 mg/dL (60-115)
--- NOTE | 2024-02-28 16:01 | HO.PM.IMPN ---
Subjective Subjective Date of Service: 02/29/24 Interval History: encephlopathy,yordan Review of Systems no nausea ,vomiting mental status somewhat improving no bleeding or coffee ground episode Physical Exam Vital Signs: Vital Signs: Last Vital Signs Temp 97.1 F 02/28/24 15:45 Pulse 87 02/28/24 15:45 Resp 20 02/28/24 15:45 BP 134/67 02/28/24 15:45 Pulse Ox 98 02/28/24 15:45 O2 Del Method Room Air 02/28/24 15:45 O2 Flow Rate 1 02/27/24 20:00 Oxygen Flow Rate 2 02/21/24 12:42 BMI result Body Mass Index 49.1 Appearance:more awake,alertx2, more awake. cvs: rrr, [id number]. res: clear to auscultation ,no rhonchii or wheezing abd: no rebound or guarding ,nt, bs present. will remove rectal tube today. ext pulses present , no cyanosis,has edema . neuro : move ext ,follow simple commands . Objective Data Active Medications Acetaminophen (Acetaminophen 325 Mg Tablet) 650 mg PO Q6H PRN PRN Reason: Headache Last Admin: 02/26/24 21:09 Dose: 650 mg Documented By: VINECNT Acetaminophen (Acetaminophen Supp 650 Mg Supp.Rect) 650 mg SC Q6H PRN PRN Reason: Fever Apixaban (Apixaban 5 Mg Tablet) 5 mg PO BID [facility] Calcium Carbonate (Calcium Carbonate 750 Mg Tab.Chew) 750 mg PO Q6H PRN PRN Reason: Heartburn Diltiazem HCl (Diltiazem Hcl 30 Mg Tablet) 30 mg PO QID [facility]; Protocol Escitalopram Oxalate (Escitalopram Oxalate 10 Mg Tablet) 10 mg PO DAILY [facility] Last Admin: 02/28/24 10:22 Dose: 10 mg Documented By: LINDA Ferrous Sulfate (Ferrous Sulfate 324 Mg Tablet.Dr) 324 mg PO DAILY [facility] Last Admin: 02/28/24 10:23 Dose: 324 mg Documented By: LINDA Fluticasone/Vilanterol (Fluticasone/Vilanterol 200/25 Blst.W.Dev) 1 puff INHALE DAILY [facility] Last Admin: 02/28/24 08:21 Dose: 1 puff Documented By: SHANTA Folic Acid (Folic Acid 1 Mg Tablet) 1 mg PO DAILY [facility] Last Admin: 02/28/24 10:23 Dose: 1 mg Documented By: LINDA Glucose (Glucose Gel 15 Gm Gel..Gram.) 15 gm PO Q15M PRN; Protocol PRN Reason: per Hypoglycemia Standing Ord. Glucose (Glucose Gel 15 Gm Gel..Gram.) 15 gm PO Q15M PRN; Protocol PRN Reason: per Hypoglycemia Standing Ord. Hydralazine HCl (Hydralazine Hcl 20 Mg/Ml Vial) 10 mg IVPUSH Q6H PRN; Protocol PRN Reason: htn Dextrose (D10) 250 mls @ 750 mls/hr IV Q15M PRN; Protocol PRN Reason: per Hypoglycemia Standing Ord. Cefepime HCl 2 gm/ Sodium (Chloride) 50 mls @ 100 mls/hr IV Q12H [facility] Last Infusion: 02/28/24 15:13 Dose: Infused Documented By: LINDA Dextrose (D10) 250 mls @ 750 mls/hr IV Q15M PRN; Protocol PRN Reason: per Hypoglycemia Standing Ord. Albumin Human (Kedbumin 25 %) 100 mls @ 100 mls/hr IV Q6H [facility] Stop: 02/29/24 02:59 Last Infusion: 02/28/24 15:36 Dose: Infused Documented By: LINDA Insulin Glargine (Insulin Glargine,Hum.Rec.Anlog 100 Unit/Ml 10 Ml Vial) 10 unit SUBCUT BID [facility] Last Admin: 02/28/24 10:23 Dose: 10 unit Documented By: LINDA Insulin Human Lispro (Insulin Lispro 100 Unit/Ml 3 Ml Vial) 0 unit SUBCUT QIDACHS [facility]; Protocol Last Admin: 02/28/24 11:35 Dose: 6 unit Documented By: LINDA Lactulose (Lactulose 20 Gm/30 Ml Solution) 30 gm PO BID [facility] Last Admin: 02/28/24 10:22 Dose: 30 gm Documented By: LINDA Levalbuterol HCl (Levalbuterol Hcl 1.25 Mg/3 Ml Vial.Neb) 1.25 mg INHALE Q4H PRN PRN Reason: Shortness Of Breath/Wheezing Levothyroxine Sodium (Levothyroxine Sodium 50 Mcg Tablet) 50 mcg PO DAILY@0600 [facility] Last Admin: 02/28/24 05:41 Dose: 50 mcg Documented By: JACK Magnesium Hydroxide (Milk Of Magnesia 30 Ml Oral.Susp) 30 ml PO DAILY PRN PRN Reason: Constipation Melatonin (Melatonin 3 Mg Tablet) 6 mg PO BEDTIME PRN PRN Reason: Insomnia Montelukast Sodium (Montelukast Sodium 10 Mg Tablet) 10 mg PO BEDTIME [facility] Last Admin: 02/27/24 21:45 Dose: 10 mg Documented By: JACK Omeprazole (Omeprazole 20 Mg Capsule.Dr) 20 mg PO BID@0630,1630 [facility] Last Admin: 02/28/24 05:41 Dose: 20 mg Documented By: JACK Polyethylene Glycol (Polyethylene Glycol 3350 17 Gm Powd.Pack) 17 gm PO DAILY PRN PRN Reason: Constipation Rifaximin (Rifaximin 550 Mg Tablet) 550 mg G-TUBE BID [facility] Last Admin: 02/28/24 10:23 Dose: 550 mg Documented By: LINDA Sodium Chloride (0.9 % Sodium Chloride Flush 3 Ml Syringe) 3 ml IVFLUSH QSHIFT [facility] Last Admin: 02/28/24 10:21 Dose: 3 ml Documented By: LINDA Labs 02/26/24 07:08 02/29/24 07:34 Labs: Laboratory Results - last 24 hr 02/27/24 02/27/24 02/28/24 16:16 22:00 05:58 Hold Purple Top SEE NOTE Estim Creat Clear Calc 45.9 Estimated GFR 35 POC Glucose 351 H* 307 H 02/28/24 02/28/24 02/28/24 07:27 11:10 15:48 Hold Purple Top Estim Creat Clear Calc Estimated GFR POC Glucose 157 H 282 H 465 H* Microbiology Microbiology Results: Microbiology 02/25/24 10:40 Gram Stain - Final Ascites Fluid Anaerobic Culture - Preliminary No growth to date. Body Fluid Culture - Final No growth after 2 days Assessment and Plan (1) Increased ammonia level: Status: Acute (2) Pneumonia: Status: Acute Assessment and Plan: 73-year-old female with a PMH significant for?asthma/COPD overlap syndrome not on home O2, hx of PE on Eliquis, paroxysmal atrial fibrillation, insulin-dependent type 2 diabetes, hypothyroidism, GERD, GRIMES cirrhosis, and mood disorder presented to the ED from [facility] ([place] due to altered mental status. Recently admitted 02/10-02/16 for YORDAN complicated by acute hyponatremia and also noted to have new onset atrial fibrillation with RVR. She will be admitted for further management of acute hepatic encephalopathy and multifocal pneumonia with sepsis. acute toxic metabolic encephalopathy related to hepatic encephalopathy more awake head CT negative for acute intracranial abnormality ammonia levels trending down plan : mentation is improving removed - ngt ,rectal tube . 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 Acute multifocal pneumonia with sepsis (sepsis resolved ). blood culture negative neg nasal mrsa: negative. ascitis fluid cultures -negative prelim@ 2 days . Legionella antigen/strep pneumo antigen-negative off IV vancomycin (nasal mrsa negative)and cefepime (initiated 02/20),symptomatic management follow CBC, cultures ? coffee ground possible related to ngt irritation no more episodes. h/h-stable aorund 11.9/38.7 stop iv ppi/octerotide continue po omeprazole. paroxysmal atrial fibrillation with RVR-rapid rate likely related to sepsis/infection as above.vent rate 80's start eliquis ( d/w Gi above coffe ground /dark stool episode likely related to ngt irritation) moniter h/h for 24 hrs acute hyperkalemia-seems improved. elevated troponins -initial 107, repeat 99 -EKG without acute ischemic changes possible elevated trops sec to sepsis/pneumonia/afib. Grimes cirrhosis ascitic fluid tap- 0.45 liter fluid removed fluid analysis less likley sbp, fluid culture-neg/prelim. switch to po lasix low dose . chronic thrombocytopenia-related to cirrhosis platlets somewhat trending down (likely related to liver disease -not due to sepsis). chronic hyponatremia -likely also related to cirrhosis asthma/COPD overlap -no hypoxia, no acute exacerbation -continue home inhalers, albuterol p.r.n. insulin-dependent type 2 diabetes with hyperglycemia -history of hyperglycemia that is difficult to control control adjusted lantus ,sliding scale, -POC glucose, dm diet. hypothyroidism -continue levothyroxine mood disorder -continue home medications DVT prophylaxis-Eliquis Full code Med rec pending ongoing inpatient stay need for management of acute hepatic encephalopathy requiring lactulose titration and close monitoring of mental status. She will also require IV antibiotics due to multifocal pneumonia,miniter h/h on eliquis hcp updated in detail. Quality Stroke Does the patient have a stroke diagnosis?: No VTE Prior VTE?: No VTE Risk Level:: Medical - moderate - high VTE Device Contraindication: Treatment Not Indicated VTE Drug Contraindication: N/A - Med Ordered
[2024-02-28] MEDS: dilTIAZem HCL 30 MG TABLET PO ×2 (16:44→19:54)
[2024-02-28] MEDS: Montelukast Sodium 10 MG TABLET PO (19:55)
[2024-02-28] MEDS: Apixaban 5 MG TABLET PO (19:55)
[2024-02-28] MEDS: Melatonin 3 MG TABLET 6 MG PO (19:55)
[2024-02-28] MEDS: rifAXIMin 550 MG TABLET PO (19:55)
[2024-02-28 21:30] LABS: Glucose, Whole Blood 286 mg/dL (60-115)
--- NOTE | 2024-02-28 23:08 | PC.NURSE ---
Patient's family bringing in outside food and drinks. A 12-pack of Blueberry Rachael israel soda, not sugar free, found in patient's room; 5 cans unaccounted for in I//O's. In addition, ortega sami ice cups, not sugar free, whole box found in a cooler in the corner of patient's room as well. Diabetic education provided. Patient agreeable to tell family members to take this food and soda home with them tomorrow.
[2024-02-29] VITALS (8 sets, daily range): BP systolic 115–143; BP diastolic 57–61; PULSE 70–83; RESP 18–24; TEMP 36.2–36.6; O2SAT 94–99; BMI 47.7
[2024-02-29] MEDS: Albumin Human 25 % 100 ML IV ×5 (01:03→18:28)
[2024-02-29] MEDS: cefEPime HCl 2 GM in 0.9 % Sodium Chloride 50 ML IV (02:27)
[2024-02-29] MEDS: Levothyroxine Sodium 50 MCG TABLET PO (05:45)
[2024-02-29] MEDS: Omeprazole 20 MG CAPSULE.DR PO ×2 (05:45→16:54)
[2024-02-29 07:07] LABS: Glucose, Whole Blood 125 mg/dL (60-115)
[2024-02-29 08:18] LABS: Creatinine Clr Calc Pharmacy 45.4; Estimated Glomerular Filt Rate 35
[2024-02-29] MEDS: Fluticasone/Vilanterol 200/25 BLST.W.DEV 1 PUFF INHALE (08:32)
[2024-02-29] MEDS: dilTIAZem HCL 30 MG TABLET PO ×4 (09:06→20:57)
[2024-02-29] MEDS: 0.9 % Sodium Chloride Flush 3 ML SYRINGE IVFLUSH ×2 (09:07→16:58)
[2024-02-29] MEDS: Apixaban 5 MG TABLET PO ×2 (09:07→20:57)
[2024-02-29] MEDS: Insulin Glargine,Hum.rec.anlog 100 UNIT/ML 10 ML VIAL 10 UNIT SUBCUT ×2 (09:07→20:57)
[2024-02-29] MEDS: rifAXIMin 550 MG TABLET PO ×2 (09:07→20:56)
[2024-02-29] MEDS: Folic Acid 1 MG TABLET PO (09:07)
[2024-02-29] MEDS: Ferrous Sulfate 324 MG TABLET.DR PO (09:07)
[2024-02-29] MEDS: Escitalopram Oxalate 10 MG TABLET PO (09:07)
[2024-02-29] MEDS: Lactulose 20 GM/30 ML SOLUTION 30 GM PO ×2 (09:08→20:57)
--- NOTE | 2024-02-29 10:19 | P.PNNP_ITS ---
Subjective Subjective Date of Service: 02/29/24 Interval history: Events noted Physical Exam 2 Vital Signs: Vital Signs: Last Vital Signs Temp 97.3 F 02/29/24 07:45 Pulse 77 02/29/24 08:33 Resp 20 02/29/24 08:33 BP 126/61 02/29/24 09:06 Pulse Ox 98 02/29/24 07:45 O2 Del Method Room Air 02/29/24 07:45 O2 Flow Rate 1 02/27/24 20:00 Oxygen Flow Rate 2 02/21/24 12:42 BMI result Body Mass Index 47.7 Const: General: ill appearing Neck: Neck: Yes supple Resp: Auscultation: rhonchi Cardio: Palpation: no palpable S3 Heart sounds: no rubs GI: Palpation (GI): Soft to palpation Auscultation: normal bowel sounds Neuro: Motor exam (neuro): no asterixis Objective Data Labs 02/26/24 07:08 02/29/24 07:34 Labs: Laboratory Results - last 24 hr 02/28/24 02/28/24 02/28/24 11:10 15:48 21:13 Hold Purple Top Creatinine Estim Creat Clear Calc Estimated GFR POC Glucose 282 H 465 H* 286 H 02/29/24 02/29/24 06:58 07:34 Hold Purple Top SEE NOTE Creatinine 1.45 H Estim Creat Clear Calc 45.4 Estimated GFR 35 POC Glucose 125 H Microbiology Microbiology Results: Microbiology 02/25/24 10:40 Ascites Fluid Gram Stain - Final 02/25/24 10:40 Ascites Fluid Anaerobic Culture - Preliminary No growth to date. 02/25/24 10:40 Ascites Fluid Body Fluid Culture - Final No growth after 2 days 02/21/24 13:34 Blood - Venous Blood Culture - Final No growth after 5 days. 02/21/24 13:04 Blood - Venous Blood Culture - Final No growth after 5 days. Procedures Date of Service Date of Service: 02/29/24 Assessment & Plan Assessment and plan (1) Hyperkalemia: Status: Acute (2) YORDAN (acute kidney injury): Status: Resolved Plan YORDAN superimposed on CKD due to hypoperfusion. Disproportionate elevation in the BUN is due to steroids. Creatinine is gradually trending down. No indication for dialysis Hyperkalemia due to the combination of spironolactone setting of renal insufficiency. For now I will hold off on using spironolactone. Keep on low-potassium diet and use Lokelma as needed. Hepatic encephalopathy Lactulose to correct hyperammonemia Time Spent With Patient Time: Total time managing care of this patient today ____ minutes. Progress Note: Quality Stroke Does the patient have a stroke diagnosis?: No
--- NOTE | 2024-02-29 10:38 | MHC.SL.DTX ---
Dysphagia Diet modifications: Last documented Solid diet consistencies: NDD2 Last documented Liquid consistency: Thin Last documented Medication Administration: Changes made to current diet?: Yes Liquid Consistency and Strategies: Liquid Intake Recommendation: Thin Compensatory Strategies for Safe Swallow: Liquids by Teaspoon Only Compensatory Strategies for Safe Swallow(b): Sitting Upright (90 deg) No Straw Liquids from Spoon Small Bites and Sips Alternate Liquids/Solids Rate of Ingestion Change Oral Check Solid Food Consistency: Dietary Recommendations: Chopped/Advanced (NDD3) Additional Modifications to Solids: Recommend UPGRADE to CHOPPED/ADVANCED solids (NDD3). Continue w/ THIN liquids, STRAWS OK. Pills WHOLE or CRUSHED in puree. LIGHTER CAPTAIN will continue to follow. Further upgrade not likely d/t edentulous state. Oral Medication Intake: Whole with Puree Strategies and Precautions to be Taken for Safe Swallow: Sitting Upright (90 deg) No Straw Liquids from Spoon Small Bites and Sips Alternate Liquids/Solids Rate of Ingestion Change Oral Check Supervision While Eating and/Drinking: Total Assistance (1:1) Foods to Avoid: Swallowing Recommended Treatments: Compens. Strategy Educat. Level of Impact on: Daily activities: Interpersonal interactions: Education: Employment: Community: Prognosis for Improvement: Recommendation for Speech: Inpatient Speech Therapy Comment: Recommend UPGRADE to GROUND/MECH ALTERED solids (NDD2). Continue w/ THIN liquids (NO STRAW) and pills CRUSHED in puree. Recommend LIGHTER CAPTAIN re-eval on 02/28 for possible upgrade. Frequency/Duration: M-F Date Range for Service Req: Timeline to reassess: Additional Comments: Pt NG tube removed 02/25. Was on NDD1 02/22-02/27. Upgraded to NDD2 02/27. Upgraded to NDD3 on 02/28. Treatment: Pt continues to be on high flow O2. She had another chest tube inserted today. She reports she is feeling better. Her Dtr is in the room, she reports she had a few bites of a bagel this morning with prolonged mastication but no overt s/s of aspiration. Pt herself states that she is willing attempt further upgrade today. She accepted bites of lizeth cracker coated in pudding with mildly delayed oral prepatory phase but with complete recollection and no overt s/s of aspiration after the swallow. She was unable to reach a cup to her mouth to attempt thin liquids. She was provided a straw and was able to hold the cup close enough to her mouth to swallow the thin liquid with no overt s/s of aspiration. Assessment: Supervisor Fish Bait Processing Clinican/Clinical Fellow: No Supervisory Statement: I have reviewed and agree with the student/clinical fellow's documentation: N/A Speech Language Pathologist: Nadir Frazier M.A., CCC-LIGHTER CAPTAIN
[2024-02-29 10:59] LABS: Glucose, Whole Blood 193 mg/dL (60-115)
--- NOTE | 2024-02-29 13:54 | HO.PM.IMPN ---
Subjective Subjective Date of Service: 02/29/24 Interval History: Mental status continues to improve, though not quite at baseline Physical Exam Vital Signs: Vital Signs: Last Vital Signs Temp 97.7 F 02/29/24 11:17 Pulse 83 02/29/24 11:17 Resp 20 02/29/24 11:17 BP 125/61 02/29/24 11:17 Pulse Ox 97 02/29/24 11:17 O2 Del Method Room Air 02/29/24 11:17 O2 Flow Rate 1 02/27/24 20:00 Oxygen Flow Rate 2 02/21/24 12:42 BMI result Body Mass Index 47.7 Alert, oriented x3, weak and ill-appearing, anasarca Objective Data Active Medications Acetaminophen (Acetaminophen 325 Mg Tablet) 650 mg PO Q6H PRN PRN Reason: Headache Last Admin: 02/26/24 21:09 Dose: 650 mg Documented By: VINCENT Acetaminophen (Acetaminophen Supp 650 Mg Supp.Rect) 650 mg VT Q6H PRN PRN Reason: Fever Apixaban (Apixaban 5 Mg Tablet) 5 mg PO BID [facility] Last Admin: 02/29/24 09:07 Dose: 5 mg Documented By: CALI Calcium Carbonate (Calcium Carbonate 750 Mg Tab.Chew) 750 mg PO Q6H PRN PRN Reason: Heartburn Diltiazem HCl (Diltiazem Hcl 30 Mg Tablet) 30 mg PO QID [facility]; Protocol Last Admin: 02/29/24 09:06 Dose: 30 mg Documented By: CALI Escitalopram Oxalate (Escitalopram Oxalate 10 Mg Tablet) 10 mg PO DAILY [facility] Last Admin: 02/29/24 09:07 Dose: 10 mg Documented By: CALI Ferrous Sulfate (Ferrous Sulfate 324 Mg Tablet.Dr) 324 mg PO DAILY [facility] Last Admin: 02/29/24 09:07 Dose: 324 mg Documented By: CAIL Fluticasone/Vilanterol (Fluticasone/Vilanterol 200/25 Blst.W.Dev) 1 puff INHALE DAILY [facility] Last Admin: 02/29/24 08:32 Dose: 1 puff Documented By: RENATA Folic Acid (Folic Acid 1 Mg Tablet) 1 mg PO DAILY [facility] Last Admin: 02/29/24 09:07 Dose: 1 mg Documented By: CALI Glucose (Glucose Gel 15 Gm Gel..Gram.) 15 gm PO Q15M PRN; Protocol PRN Reason: per Hypoglycemia Standing Ord. Glucose (Glucose Gel 15 Gm Gel..Gram.) 15 gm PO Q15M PRN; Protocol PRN Reason: per Hypoglycemia Standing Ord. Dextrose (D10) 250 mls @ 750 mls/hr IV Q15M PRN; Protocol PRN Reason: per Hypoglycemia Standing Ord. Cefepime HCl 2 gm/ Sodium (Chloride) 50 mls @ 100 mls/hr IV Q12H [facility] Last Infusion: 02/29/24 03:36 Dose: Infused Documented By: AXEL Dextrose (D10) 250 mls @ 750 mls/hr IV Q15M PRN; Protocol PRN Reason: per Hypoglycemia Standing Ord. Insulin Glargine (Insulin Glargine,Hum.Rec.Anlog 100 Unit/Ml 10 Ml Vial) 10 unit SUBCUT BID [facility] Last Admin: 02/29/24 09:07 Dose: 10 unit Documented By: CALI Insulin Human Lispro (Insulin Lispro 100 Unit/Ml 3 Ml Vial) 0 unit SUBCUT QIDACHS [facility]; Protocol Last Admin: 02/29/24 11:03 Dose: Not Given Documented By: CALI Non-Admin Reason: No Insulin Coverage Lactulose (Lactulose 20 Gm/30 Ml Solution) 30 gm PO BID [facility] Last Admin: 02/29/24 09:08 Dose: 30 gm Documented By: CALI Levalbuterol HCl (Levalbuterol Hcl 1.25 Mg/3 Ml Vial.Neb) 1.25 mg INHALE Q4H PRN PRN Reason: Shortness Of Breath/Wheezing Levothyroxine Sodium (Levothyroxine Sodium 50 Mcg Tablet) 50 mcg PO DAILY@0600 [facility] Last Admin: 02/29/24 05:45 Dose: 50 mcg Documented By: AXEL Magnesium Hydroxide (Milk Of Magnesia 30 Ml Oral.Susp) 30 ml PO DAILY PRN PRN Reason: Constipation Melatonin (Melatonin 3 Mg Tablet) 6 mg PO BEDTIME PRN PRN Reason: Insomnia Last Admin: 02/28/24 19:55 Dose: 6 mg Documented By: AXEL Montelukast Sodium (Montelukast Sodium 10 Mg Tablet) 10 mg PO BEDTIME [facility] Last Admin: 02/28/24 19:55 Dose: 10 mg Documented By: AXEL Omeprazole (Omeprazole 20 Mg Capsule.) 20 mg PO BID@0630,1630 [facility] Last Admin: 02/29/24 05:45 Dose: 20 mg Documented By: EFRAÍN-JUAN Polyethylene Glycol (Polyethylene Glycol 3350 17 Gm Powd.Pack) 17 gm PO DAILY PRN PRN Reason: Constipation Rifaximin (Rifaximin 550 Mg Tablet) 550 mg PO BID [facility] Last Admin: 02/29/24 09:07 Dose: 550 mg Documented By: CAIL Sodium Chloride (0.9 % Sodium Chloride Flush 3 Ml Syringe) 3 ml IVFLUSH QSHIFT [facility] Last Admin: 02/29/24 09:07 Dose: 3 ml Documented By: CALI Labs 02/26/24 07:08 02/29/24 07:34 Labs: Laboratory Results - last 24 hr 02/28/24 02/28/24 02/29/24 15:48 21:13 06:58 Hold Purple Top Estim Creat Clear Calc Estimated GFR POC Glucose 465 H* 286 H 125 H 02/29/24 02/29/24 07:34 10:48 Hold Purple Top SEE NOTE Estim Creat Clear Calc 45.4 Estimated GFR 35 POC Glucose 193 H Microbiology Microbiology Results: Microbiology 02/25/24 10:40 Gram Stain - Final Ascites Fluid Anaerobic Culture - Preliminary No growth to date. 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 due to altered mental status. Recently admitted 02/10-02/16 for YORDAN complicated by acute hyponatremia and also noted to have new onset atrial fibrillation with RVR. admitted for further management of acute hepatic encephalopathy and multifocal pneumonia with sepsis. acute toxic metabolic encephalopathy related to hepatic encephalopathy due to Grimes cirrhosis Continues to improve NG tube and rectal tube removed On NDD2 solids and thin liquids Continue lactulose and rifaximin Sepsis due to acute multifocal pneumonia Completed 7 days of IV antibiotics Question coffee-ground emesis Likely due to irritation from NG tube Resolved Continue p.o. PPI paroxysmal atrial fibrillation with RVR Continue diltiazem, Eliquis acute hyperkalemia Resolved, monitor Grimes cirrhosis with anasarca ascitic fluid tap- 0.45 liter fluid removed fluid analysis less likely sbp, fluid culture-neg will give some albumin with lasix to try to shift fluid and excrete. chronic thrombocytopenia-related to cirrhosis platelets, somewhat trending down (likely related to liver disease -not due to sepsis). asthma/COPD overlap -no hypoxia, no acute exacerbation -continue home inhalers, albuterol p.r.n. insulin-dependent type 2 diabetes with hyperglycemia -history of hyperglycemia that is difficult to control control Continue basal bolus insulin hypothyroidism -continue levothyroxine Morbid obesity Weight loss recommended DVT prophylaxis-Eliquis Full code reason for continued hospitalization: Still not back to baseline mental status, anasarca Quality Stroke Does the patient have a stroke diagnosis?: No VTE Prior VTE?: No VTE Risk Level:: Medical - moderate - high VTE Device Contraindication: Treatment Not Indicated VTE Drug Contraindication: N/A - Med Ordered
--- NOTE | 2024-02-29 14:32 | HO.WOUND ---
Wound Consult: Initial 73yr old? Female admitted to [facility] on 02/21/24 - See progress notes and H&P for detailed history.? Wound consult placed for perineal area.? Patient agreeable to assessment and photo documentation.? Patient family at bedside and informed me he brought in briefs at patient request - patient and family educated on not using brief in hospital and when in bed. She reports understanding at this time. Her skin was assessed for MASD with fungal dermatitis to the pannus and bilateral groin. Antifungal treatment to be ordered by provider. Intertrigo is noted to the groin with partial thickness tissue loss at base of fold - may treat with antifungal powder followed by thin swipe of triad to allow kiko moist wound healing and comfort. The perineal areas was assessed for MASD, red erythema noted with scattered areas of partial thickness tissue loss. The buttock assess for MASD with no pressure injury noted. Left Groin and ABd fold Right Groin Perineal, buttock and sacrum Recommendations: 1. Turn and Reposition every 2 hours and as needed for patient comfort.? Use pillows or wedges to support off loading positions. 2. Off Load all bony prominences with use of pillows and heel boots if needed.? Apply Preventative foams where needed. ? 3. Monitor for incontinence and moisture control, use barrier creams when needed for prevention and treatment. 4. Provide adequate and supplemental nutrition.? 5. Order or Continue low air loss mattress. 6. When applicable maintain blood glucose levels per Providers order. 7. Abd skin fold - Apply antifungal powder dust off excess to prevent caking. Apply twice daily per provider orders. 8. Groin and perineal and buttocks - Cleanse with PH balanced wipes, pat dry. Apply antifugal powder be sure to dust off excess to prevent caking. Apply twice daily per provider orders. Followed by Triad teice daily. Pay and dab after incontience do not scrub off paste. Apply twice daily and PRN. Re-consult wound care Nurse for wound deterioration or wound changes.
[2024-02-29] MEDS: Nystatin Powder 15 GM BOTTLE 1 APPL TOPICAL ×2 (15:36→21:01)
[2024-02-29 16:20] LABS: Glucose, Whole Blood 263 mg/dL (60-115)
[2024-02-29] MEDS: Insulin Lispro 100 UNIT/ML 3 ML VIAL SUBCUT ×2 (16:54→20:57)
[2024-02-29] MEDS: Melatonin 3 MG TABLET 6 MG PO (20:56)
[2024-02-29] MEDS: Montelukast Sodium 10 MG TABLET PO (20:56)
[2024-02-29 20:58] LABS: Glucose, Whole Blood 254 mg/dL (60-115)
[2024-03-01] VITALS (8 sets, daily range): BP systolic 108–140; BP diastolic 57–79; PULSE 78–113; RESP 16–20; TEMP 36.1–36.7; O2SAT 92–96; BMI 50.5
[2024-03-01] MEDS: 0.9 % Sodium Chloride Flush 3 ML SYRINGE IVFLUSH ×4 (01:01→21:35)
[2024-03-01] MEDS: Omeprazole 20 MG CAPSULE.DR PO ×2 (06:03→18:09)
[2024-03-01] MEDS: Levothyroxine Sodium 50 MCG TABLET PO (06:03)
[2024-03-01 06:49] LABS: Hematocrit 28.5 % (37.0-47.0); Hemoglobin 9.1 g/dl (12.0-16.0); Mean Corpuscular HGB Conc 31.9 g/dl (31.0-35.0); Mean Corpuscular Hemoglobin 30.1 pg (27.0-33.0); Mean Corpuscular Volume 94.4 fL (80.0-98.0); Mean Platelet Volume 11.1 fL (9.4-12.3); Red Blood Count 3.02 X10*6/uL (4.20-5.50); White Blood Count 7.6 X10*3/uL (4.8-10.8)
[2024-03-01 06:50] LABS: Platelet Count 42 X10*3/uL (160-400)
--- NOTE | 2024-03-01 06:53 | PC.NURSE ---
Addendum entered by Renee Cutler RN 03/01/24 07:47: Next RN made aware in report so that she can reassess and monitor right arm/hand. Original Note: message sent to MD Krik via [facility]. I was notified by MECHANICAL SYSTEM TECHNICIAN that she found tourniquet fixed mid right arm on this patient. found at 0645 Hand is swollen and oozing small amount of blood onto bedding. Patient denies numbness or tingling, or altered movement. Hand is warm to touch. Of note, the other hand is almost equally swollen and bruised and the patient did not know tourniquet was still tight on arm.
[2024-03-01 06:56] LABS: Prothrombin Time 24.5 SEC (11.1-13.3)
[2024-03-01 07:08] LABS: Alanine Aminotransferase 26 U/L (0-31); Alkaline Phosphatase 88 U/L (39-117); Anion Gap 14 (12-20); Aspartate Amino Transferase 33 U/L (5-31); Bilirubin Direct 2.9 mg/dL (0.0-0.5); Bilirubin Total 6.4 mg/dL (0.0-1.0); Blood Urea Nitrogen 53 mg/dL (9-16); Carbon Dioxide 18 mmol/L (22-29); Chloride 110 mmol/L (96-108); Creatinine Clr Calc Pharmacy 47.3; Estimated Glomerular Filt Rate 37; Glucose Fasting 154 mg/dL (60-99); Magnesium 2.2 mg/dL (1.6-2.6); Potassium 3.9 mmol/L (3.3-5.1); Sodium 138 mmol/L (135-145); Total Protein 6.3 g/dL (6.5-8.0)
[2024-03-01 07:40] LABS: Glucose, Whole Blood 142 mg/dL (60-115)
[2024-03-01] MEDS: Fluticasone/Vilanterol 200/25 BLST.W.DEV 1 PUFF INHALE (08:14)
[2024-03-01] MEDS: Lactulose 20 GM/30 ML SOLUTION 30 GM PO ×2 (09:22→21:28)
[2024-03-01] MEDS: Ferrous Sulfate 324 MG TABLET.DR PO (09:23)
[2024-03-01] MEDS: rifAXIMin 550 MG TABLET PO ×2 (09:23→21:25)
[2024-03-01] MEDS: Insulin Glargine,Hum.rec.anlog 100 UNIT/ML 10 ML VIAL 10 UNIT SUBCUT ×2 (09:23→21:26)
[2024-03-01] MEDS: Folic Acid 1 MG TABLET PO (09:23)
[2024-03-01] MEDS: dilTIAZem HCL CD 120 MG CAP.ER.DEG PO (09:23)
[2024-03-01] MEDS: Apixaban 5 MG TABLET PO ×2 (09:23→21:26)
[2024-03-01] MEDS: Escitalopram Oxalate 10 MG TABLET PO (09:23)
--- NOTE | 2024-03-01 10:26 | MHC.CM.PN ---
EMR REVIEWED, PER HOSPITALIST PT IMPROVING HOWEVER NOT QUITE READY FOR DC, PLAN CONT'S TO BE RETURN TO [facility] FOR STR, CM WILL CONT TO FOLLOW DC NEEDS.
--- NOTE | 2024-03-01 11:02 | P.PNIM_ITS ---
Subjective Subjective Date of Service: 03/01/24 Interval History: wheezy Physical Exam 2 Vital Signs: Vital Signs: Last Vital Signs Temp 97.4 F 03/01/24 07:52 Pulse 83 03/01/24 09:23 Resp 20 03/01/24 08:16 BP 140/59 H 03/01/24 09:23 Pulse Ox 93 03/01/24 07:52 O2 Del Method Room Air 03/01/24 07:52 O2 Flow Rate 1 02/27/24 20:00 Oxygen Flow Rate 2 02/21/24 12:42 BMI result Body Mass Index 47.7 lethargic, jaundiced, oriented times 3, lungs with wheezes, less anasarca, ill appearing Objective Data Active Medications Acetaminophen (Acetaminophen 325 Mg Tablet) 650 mg PO Q6H PRN PRN Reason: Headache Last Admin: 02/26/24 21:09 Dose: 650 mg Documented By: VINCENT Acetaminophen (Acetaminophen Supp 650 Mg Supp.Rect) 650 mg VT Q6H PRN PRN Reason: Fever Albuterol/Ipratropium (Albuterol/Iprat 2.5/0.5mg 3 Ml Ampul.Neb) 3 ml INHALE RQ4H WHILE AWAKE PRN PRN Reason: sob Apixaban (Apixaban 5 Mg Tablet) 5 mg PO BID [facility] Last Admin: 03/01/24 09:23 Dose: 5 mg Documented By: ECHO Calcium Carbonate (Calcium Carbonate 750 Mg Tab.Chew) 750 mg PO Q6H PRN PRN Reason: Heartburn Diltiazem HCl (Diltiazem Hcl Cd 120 Mg Cap.Er.Deg) 120 mg PO DAILY [facility]; Protocol Last Admin: 03/01/24 09:23 Dose: 120 mg Documented By: ECHO Escitalopram Oxalate (Escitalopram Oxalate 10 Mg Tablet) 10 mg PO DAILY [facility] Last Admin: 03/01/24 09:23 Dose: 10 mg Documented By: ECHO Ferrous Sulfate (Ferrous Sulfate 324 Mg Tablet.Dr) 324 mg PO DAILY [facility] Last Admin: 03/01/24 09:23 Dose: 324 mg Documented By: ECHO Fluticasone/Vilanterol (Fluticasone/Vilanterol 200/25 Blst.W.Dev) 1 puff INHALE DAILY [facility] Last Admin: 03/01/24 08:14 Dose: 1 puff Documented By: OMARI Folic Acid (Folic Acid 1 Mg Tablet) 1 mg PO DAILY [facility] Last Admin: 03/01/24 09:23 Dose: 1 mg Documented By: ECHO Glucose (Glucose Gel 15 Gm Gel..Gram.) 15 gm PO Q15M PRN; Protocol PRN Reason: per Hypoglycemia Standing Ord. Glucose (Glucose Gel 15 Gm Gel..Gram.) 15 gm PO Q15M PRN; Protocol PRN Reason: per Hypoglycemia Standing Ord. Dextrose (D10) 250 mls @ 750 mls/hr IV Q15M PRN; Protocol PRN Reason: per Hypoglycemia Standing Ord. Dextrose (D10) 250 mls @ 750 mls/hr IV Q15M PRN; Protocol PRN Reason: per Hypoglycemia Standing Ord. Insulin Glargine (Insulin Glargine,Hum.Rec.Anlog 100 Unit/Ml 10 Ml Vial) 10 unit SUBCUT BID [facility] Last Admin: 03/01/24 09:23 Dose: 10 unit Documented By: ECHO Insulin Human Lispro (Insulin Lispro 100 Unit/Ml 3 Ml Vial) 0 unit SUBCUT QIDACHS [facility]; Protocol Last Admin: 03/01/24 07:47 Dose: Not Given Documented By: ECHO Non-Admin Reason: No Insulin Coverage Lactulose (Lactulose 20 Gm/30 Ml Solution) 30 gm PO BID [facility] Last Admin: 03/01/24 09:22 Dose: 30 gm Documented By: ECHO Levalbuterol HCl (Levalbuterol Hcl 1.25 Mg/3 Ml Vial.Neb) 1.25 mg INHALE Q4H PRN PRN Reason: Shortness Of Breath/Wheezing Levothyroxine Sodium (Levothyroxine Sodium 50 Mcg Tablet) 50 mcg PO DAILY@0600 [facility] Last Admin: 03/01/24 06:03 Dose: 50 mcg Documented By: [place] Magnesium Hydroxide (Milk Of Magnesia 30 Ml Oral.Susp) 30 ml PO DAILY PRN PRN Reason: Constipation Melatonin (Melatonin 3 Mg Tablet) 6 mg PO BEDTIME PRN PRN Reason: Insomnia Last Admin: 02/29/24 20:56 Dose: 6 mg Documented By: ALEX Montelukast Sodium (Montelukast Sodium 10 Mg Tablet) 10 mg PO BEDTIME [facility] Last Admin: 02/29/24 20:56 Dose: 10 mg Documented By: ALEX Nystatin (Nystatin Powder 15 Gm Bottle) 1 appl TOPICAL TID [facility]; Protocol Last Admin: 02/29/24 21:01 Dose: 1 appl Documented By: ALEX Omeprazole (Omeprazole 20 Mg Capsule.) 20 mg PO BID@0630,1630 [facility] Last Admin: 03/01/24 06:03 Dose: 20 mg Documented By: [place] Polyethylene Glycol (Polyethylene Glycol 3350 17 Gm Powd.Pack) 17 gm PO DAILY PRN PRN Reason: Constipation Rifaximin (Rifaximin 550 Mg Tablet) 550 mg PO BID [facility] Last Admin: 03/01/24 09:23 Dose: 550 mg Documented By: ECHO Sodium Chloride (0.9 % Sodium Chloride Flush 3 Ml Syringe) 3 ml IVFLUSH QSHIFT [facility] Last Admin: 03/01/24 09:23 Dose: 3 ml Documented By: ECHO Labs 03/01/24 06:38 03/01/24 06:38 Labs: Laboratory Results - last 24 hr 02/29/24 02/29/24 03/01/24 16:14 20:48 06:38 MCV 94.4 MCH 30.1 MCHC 31.9 RDW 19.0 H Plt Count 42 L D MPV 11.1 Absolute Nucleated RBC 0.000 Nucleated RBC % (auto) 0.0 PT 24.5 H D INR 2.0 H Anion Gap 14 Estim Creat Clear Calc 47.3 Estimated GFR 37 POC Glucose 263 H 254 H Fasting Glucose 154 H Calcium 9.0 D Magnesium 2.2 Total Bilirubin 6.4 H Direct Bilirubin 2.9 H AST 33 H ALT 26 Alkaline Phosphatase 88 Total Protein 6.3 L Albumin 4.0 03/01/24 07:18 MCV MCH MCHC RDW Plt Count MPV Absolute Nucleated RBC Nucleated RBC % (auto) PT INR Anion Gap Estim Creat Clear Calc Estimated GFR POC Glucose 142 H Fasting Glucose Calcium Magnesium Total Bilirubin Direct Bilirubin AST ALT Alkaline Phosphatase Total Protein Albumin Microbiology Microbiology Results: Microbiology 02/25/24 10:40 Gram Stain - Final Ascites Fluid Anaerobic Culture - Final NO GROWTH AFTER 5 DAYS Body Fluid Culture - Final No growth after 2 days Assessment and Plan (1) Increased ammonia level: Status: Acute (2) Pneumonia: Status: Acute Assessment and Plan: 73F PMH significant for?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 due to altered mental status. Recently admitted 02/10-02/16 for YORDAN complicated by acute hyponatremia and also noted to have new onset atrial fibrillation with RVR. admitted for further management of acute hepatic encephalopathy and multifocal pneumonia with sepsis. acute toxic metabolic encephalopathy related to hepatic encephalopathy due to Grimes cirrhosis Continues to improve NG tube and rectal tube removed On NDD2 solids and thin liquids Continue lactulose and rifaximin Sepsis due to acute multifocal pneumonia Completed 7 days of IV antibiotics Question coffee-ground emesis Likely due to irritation from NG tube Resolved Continue p.o. PPI paroxysmal atrial fibrillation with RVR Continue diltiazem, Eliquis acute hyperkalemia Resolved, monitor Grimes cirrhosis with anasarca ascitic fluid tap- 0.45 liter fluid removed fluid analysis less likely sbp, fluid culture-neg given some albumin with lasix to try to shift fluid and excrete, will give another dose iv lasix today and monitor closely tbili increasing, check ct abd, monitor chronic thrombocytopenia-related to cirrhosis platelets, somewhat trending down (likely related to liver disease -not due to sepsis). asthma/COPD overlap -continue home inhalers, albuterol p.r.n. insulin-dependent type 2 diabetes with hyperglycemia -history of hyperglycemia that is difficult to control control Continue basal bolus insulin hypothyroidism -continue levothyroxine Morbid obesity Weight loss recommended DVT prophylaxis-Eliquis Full code reason for continued hospitalization: Still not back to baseline mental status, anasarca Quality Stroke Does the patient have a stroke diagnosis?: No VTE Prior VTE?: No VTE Risk Level:: Medical - moderate - high VTE Device Contraindication: Treatment Not Indicated VTE Drug Contraindication: N/A - Med Ordered
[2024-03-01 11:57] LABS: Glucose, Whole Blood 197 mg/dL (60-115)
[2024-03-01] MEDS: Furosemide 40 MG/4 ML VIAL IVPUSH (12:15)
[2024-03-01] MEDS: Nystatin Powder 15 GM BOTTLE 1 APPL TOPICAL ×2 (12:16→18:10)
--- NOTE | 2024-03-01 13:07 | P.PNNP_ITS ---
Subjective Subjective Date of Service: 03/01/24 Interval history: Events noted; wheezy; All recent data reviewed Physical Exam 2 Vital Signs: Vital Signs: Last Vital Signs Temp 97.2 F 03/01/24 11:59 Pulse 92 03/01/24 11:59 Resp 20 03/01/24 11:59 BP 124/66 03/01/24 11:59 Pulse Ox 93 03/01/24 11:59 O2 Del Method Room Air 03/01/24 11:59 O2 Flow Rate 1 02/27/24 20:00 Oxygen Flow Rate 2 02/21/24 12:42 BMI result Body Mass Index 50.5 Const: General: comfortable and no acute distress HEENT: Head: Yes normocephalic Mouth: Normal oral and palatal mucosa present Eyes: EOM: EOMs intact bilaterally Neck: Neck: Yes supple Resp: Auscultation: wheezes and diminished lung sounds Cardio: Jugular venous distension: no JVD Rate: regular rate GI: Palpation (GI): Soft to palpation Auscultation: normal bowel sounds : General: Yes no CVA tenderness Back/Spine/Pelvis: Back: no CVA tenderness Skin: General skin exam: no rashes or lesions noted Neuro: General: moves all extremities Extrem: General: Yes edema Objective Data Labs 03/01/24 06:38 03/01/24 06:38 Labs: Laboratory Results - last 24 hr 02/29/24 02/29/24 03/01/24 16:14 20:48 06:38 WBC 7.6 RBC 3.02 L D Hgb 9.1 L D Hct 28.5 L D MCV 94.4 MCH 30.1 MCHC 31.9 RDW 19.0 H Plt Count 42 L D MPV 11.1 Absolute Nucleated RBC 0.000 Nucleated RBC % (auto) 0.0 PT 24.5 H D INR 2.0 H Sodium 138 Potassium 3.9 Chloride 110 H Carbon Dioxide 18 L Anion Gap 14 BUN 53 H Creatinine 1.39 Estim Creat Clear Calc 47.3 Estimated GFR 37 POC Glucose 263 H 254 H Fasting Glucose 154 H Calcium 9.0 D Magnesium 2.2 Total Bilirubin 6.4 H Direct Bilirubin 2.9 H AST 33 H ALT 26 Alkaline Phosphatase 88 Total Protein 6.3 L Albumin 4.0 03/01/24 03/01/24 07:18 11:47 WBC RBC Hgb Hct MCV MCH MCHC RDW Plt Count MPV Absolute Nucleated RBC Nucleated RBC % (auto) PT INR Sodium Potassium Chloride Carbon Dioxide Anion Gap BUN Creatinine Estim Creat Clear Calc Estimated GFR POC Glucose 142 H 197 H Fasting Glucose Calcium Magnesium Total Bilirubin Direct Bilirubin AST ALT Alkaline Phosphatase Total Protein Albumin Microbiology Microbiology Results: Microbiology 02/25/24 10:40 Ascites Fluid Gram Stain - Final 02/25/24 10:40 Ascites Fluid Anaerobic Culture - Final NO GROWTH AFTER 5 DAYS 02/25/24 10:40 Ascites Fluid Body Fluid Culture - Final No growth after 2 days 02/21/24 13:34 Blood - Venous Blood Culture - Final No growth after 5 days. 02/21/24 13:04 Blood - Venous Blood Culture - Final No growth after 5 days. Procedures Date of Service Date of Service: 03/01/24 Assessment & Plan Assessment and plan (1) CKD stage 3a, GFR 45-59 ml/min: Status: Acute Plan YORDAN superimposed on CKD due to hypoperfusion Creatinine is close to baseline. Hypervolemic- Shall give a dose of lasix today H/O Hyperkalemia due to the combination of spironolactone in the setting of renal insufficiency. C/W rest of current supportive care for now Progress Note: Quality Stroke Does the patient have a stroke diagnosis?: No
--- NOTE | 2024-03-01 14:59 | MHC.SL.SWA ---
Risk of Aspiration Due to: Lethargy Dysphasia Diet Status: NO CHANGE Liquid Consistency and Strategies for Safe Swallow: Liquid Intake Recommendation: Thin Liquid Intake Strategies: Small Sips Solid Food Consistency: Dietary Recommendations: Grnd/Mech Altered (NDD2) Oral Medication Intake: Whole with Puree Please contact the pharmacy regarding appropriate crushable or liquid drug formulations that are available whenever modified delivery is recommended. Compensatory Strategies and Precautions to be Taken for Safe Swallow: Sitting Upright (90 deg) Small Bites and Sips Alternate Liquids/Solids Rate of Ingestion Change Oral Check Supervision While Eating and Drinking for Safe Swallow: Total Assistance (1:1) Foods to Avoid: Swallowing Recommended Treatments: Compens. Strategy Educat. Recommendation for Speech: Inpatient Speech Therapy Comment: Recommend Recommend patient continue with GROUND/MECH ALTERED solids (NDD2), THIN liquids, and pills whole in puree. Recommend PACS ADMINISTRATOR re-eval on 03/01 for possible upgrade of solids. Boxing And Pressing Supervisor Clinican/Clinical Fellow: No Supervisory Statement: I have reviewed and agree with the student/clinical fellow's documentation: N/A Speech Language Pathologist: Jelena Ricks M.A., CCC-PACS ADMINISTRATOR
[2024-03-01] MEDS: Insulin Lispro 100 UNIT/ML 3 ML VIAL SUBCUT ×2 (18:10→21:27)
[2024-03-01 18:13] LABS: Glucose, Whole Blood 276 mg/dL (60-115)
[2024-03-01 21:02] LABS: Glucose, Whole Blood 241 mg/dL (60-115)
[2024-03-01] MEDS: Montelukast Sodium 10 MG TABLET PO (21:26)
[2024-03-02] VITALS (8 sets, daily range): BP systolic 130–155; BP diastolic 56–91; PULSE 78–100; RESP 16–20; TEMP 36–37.1; O2SAT 93–96
[2024-03-02] MEDS: Levothyroxine Sodium 50 MCG TABLET PO (05:39)
[2024-03-02] MEDS: Omeprazole 20 MG CAPSULE.DR PO ×2 (05:39→17:19)
[2024-03-02 06:52] LABS: Hematocrit 31.7 % (37.0-47.0); Hemoglobin 10.1 g/dl (12.0-16.0); Mean Corpuscular HGB Conc 31.9 g/dl (31.0-35.0); Mean Corpuscular Hemoglobin 30.2 pg (27.0-33.0); Mean Corpuscular Volume 94.9 fL (80.0-98.0); Mean Platelet Volume 12.3 fL (9.4-12.3); Red Blood Count 3.34 X10*6/uL (4.20-5.50); Red Cell Distribution Width 19.9 % (11.0-16.0); White Blood Count 6.9 X10*3/uL (4.8-10.8)
[2024-03-02 06:53] LABS: Alanine Aminotransferase 28 U/L (0-31); Albumin Level 3.7 g/dL (3.5-5.0); Alkaline Phosphatase 101 U/L (39-117); Anion Gap 15 (12-20); Aspartate Amino Transferase 32 U/L (5-31); Bilirubin Direct 3.4 mg/dL (0.0-0.5); Bilirubin Total 7.2 mg/dL (0.0-1.0); Blood Urea Nitrogen 53 mg/dL (9-16); Carbon Dioxide 20 mmol/L (22-29); Chloride 108 mmol/L (96-108); Creatinine Clr Calc Pharmacy 44.5; Estimated Glomerular Filt Rate 33; Glucose Fasting 200 mg/dL (60-99); Potassium 3.9 mmol/L (3.3-5.1); Sodium 139 mmol/L (135-145); Total Protein 6.1 g/dL (6.5-8.0)
[2024-03-02 06:54] LABS: Platelet Count 55 X10*3/uL (160-400)
[2024-03-02 07:14] LABS: Glucose, Whole Blood 174 mg/dL (60-115)
[2024-03-02] MEDS: Fluticasone/Vilanterol 200/25 BLST.W.DEV 1 PUFF INHALE (08:32)
[2024-03-02] MEDS: Insulin Glargine,Hum.rec.anlog 100 UNIT/ML 10 ML VIAL 10 UNIT SUBCUT ×2 (09:36→23:56)
[2024-03-02] MEDS: Folic Acid 1 MG TABLET PO (09:36)
[2024-03-02] MEDS: Lactulose 20 GM/30 ML SOLUTION 30 GM PO ×2 (09:36→23:55)
[2024-03-02] MEDS: dilTIAZem HCL CD 120 MG CAP.ER.DEG PO (09:36)
[2024-03-02] MEDS: Ferrous Sulfate 324 MG TABLET.DR PO (09:37)
[2024-03-02] MEDS: rifAXIMin 550 MG TABLET PO ×2 (09:37→23:56)
[2024-03-02] MEDS: Apixaban 5 MG TABLET PO ×2 (09:37→23:56)
[2024-03-02] MEDS: Nystatin Powder 15 GM BOTTLE 1 APPL TOPICAL ×3 (09:37→23:57)
[2024-03-02] MEDS: Escitalopram Oxalate 10 MG TABLET PO (09:37)
[2024-03-02] MEDS: 0.9 % Sodium Chloride Flush 3 ML SYRINGE IVFLUSH ×3 (09:37→23:57)
[2024-03-02 10:58] LABS: Glucose, Whole Blood 247 mg/dL (60-115)
--- NOTE | 2024-03-02 11:00 | P.PNIM_ITS ---
Subjective Subjective Date of Service: 03/02/24 Interval History: worsening jaundice Physical Exam 2 Vital Signs: Vital Signs: Last Vital Signs Temp 97.3 F 03/02/24 07:52 Pulse 81 03/02/24 09:36 Resp 18 03/02/24 08:34 BP 130/62 03/02/24 09:36 Pulse Ox 95 03/02/24 07:52 O2 Del Method Room Air 03/02/24 07:52 O2 Flow Rate 1 02/27/24 20:00 Oxygen Flow Rate 2 02/21/24 12:42 BMI result Body Mass Index 50.5 lethargic, jaundiced, oriented times 3, lungs with wheezes, less anasarca, ill appearing Const: General: comfortable and no acute distress HEENT: Head: Yes normocephalic Mouth: Normal oral and palatal mucosa present Eyes: EOM: EOMs intact bilaterally Neck: Neck: Yes supple Resp: Auscultation: wheezes and diminished lung sounds Cardio: Jugular venous distension: no JVD Rate: regular rate GI: Palpation (GI): Soft to palpation Auscultation: normal bowel sounds : General: Yes no CVA tenderness Back/Spine/Pelvis: Back: no CVA tenderness Skin: General skin exam: no rashes or lesions noted Neuro: General: moves all extremities Extrem: General: Yes edema Objective Data Active Medications Acetaminophen (Acetaminophen 325 Mg Tablet) 650 mg PO Q6H PRN PRN Reason: Headache Last Admin: 02/26/24 21:09 Dose: 650 mg Documented By: VINCENT Acetaminophen (Acetaminophen Supp 650 Mg Supp.Rect) 650 mg NE Q6H PRN PRN Reason: Fever Albuterol/Ipratropium (Albuterol/Iprat 2.5/0.5mg 3 Ml Ampul.Neb) 3 ml INHALE RQ4H WHILE AWAKE PRN PRN Reason: sob Apixaban (Apixaban 5 Mg Tablet) 5 mg PO BID [facility] Last Admin: 03/02/24 09:37 Dose: 5 mg Documented By: ECHO Calcium Carbonate (Calcium Carbonate 750 Mg Tab.Chew) 750 mg PO Q6H PRN PRN Reason: Heartburn Diltiazem HCl (Diltiazem Hcl Cd 120 Mg Cap.Er.Deg) 120 mg PO DAILY [facility]; Protocol Last Admin: 05/23/24 09:36 Dose: 120 mg Documented By: ECHO Escitalopram Oxalate (Escitalopram Oxalate 10 Mg Tablet) 10 mg PO DAILY [facility] Last Admin: 03/02/24 09:37 Dose: 10 mg Documented By: ECHO Ferrous Sulfate (Ferrous Sulfate 324 Mg Tablet.Dr) 324 mg PO DAILY [facility] Last Admin: 03/02/24 09:37 Dose: 324 mg Documented By: ECHO Fluticasone/Vilanterol (Fluticasone/Vilanterol 200/25 Blst.W.Dev) 1 puff INHALE DAILY [facility] Last Admin: 03/02/24 08:32 Dose: 1 puff Documented By: KATHI Folic Acid (Folic Acid 1 Mg Tablet) 1 mg PO DAILY [facility] Last Admin: 03/02/24 09:36 Dose: 1 mg Documented By: ECHO Glucose (Glucose Gel 15 Gm Gel..Gram.) 15 gm PO Q15M PRN; Protocol PRN Reason: per Hypoglycemia Standing Ord. Dextrose (D10) 250 mls @ 750 mls/hr IV Q15M PRN; Protocol PRN Reason: per Hypoglycemia Standing Ord. Insulin Glargine (Insulin Glargine,Hum.Rec.Anlog 100 Unit/Ml 10 Ml Vial) 10 unit SUBCUT BID [facility] Last Admin: 03/02/24 09:36 Dose: 10 unit Documented By: ECHO Insulin Human Lispro (Insulin Lispro 100 Unit/Ml 3 Ml Vial) 0 unit SUBCUT QIDACHS [facility]; Protocol Last Admin: 03/02/24 09:35 Dose: Not Given Documented By: ECHO Non-Admin Reason: No Insulin Coverage Lactulose (Lactulose 20 Gm/30 Ml Solution) 30 gm PO BID [facility] Last Admin: 03/02/24 09:36 Dose: 30 gm Documented By: ECHO Levalbuterol HCl (Levalbuterol Hcl 1.25 Mg/3 Ml Vial.Neb) 1.25 mg INHALE Q4H PRN PRN Reason: Shortness Of Breath/Wheezing Levothyroxine Sodium (Levothyroxine Sodium 50 Mcg Tablet) 50 mcg PO DAILY@0600 [facility] Last Admin: 03/02/24 05:39 Dose: 50 mcg Documented By: JOSEPH Magnesium Hydroxide (Milk Of Magnesia 30 Ml Oral.Susp) 30 ml PO DAILY PRN PRN Reason: Constipation Melatonin (Melatonin 3 Mg Tablet) 6 mg PO BEDTIME PRN PRN Reason: Insomnia Last Admin: 02/29/24 20:56 Dose: 6 mg Documented By: ALEX Montelukast Sodium (Montelukast Sodium 10 Mg Tablet) 10 mg PO BEDTIME [facility] Last Admin: 03/01/24 21:26 Dose: 10 mg Documented By: JOSEPH Nystatin (Nystatin Powder 15 Gm Bottle) 1 appl TOPICAL TID [facility]; Protocol Last Admin: 03/02/24 09:37 Dose: 1 appl Documented By: ECHO Omeprazole (Omeprazole 20 Mg Capsule.Dr) 20 mg PO BID@0630,1630 [facility] Last Admin: 03/02/24 05:39 Dose: 20 mg Documented By: JOSEPH Polyethylene Glycol (Polyethylene Glycol 3350 17 Gm Powd.Pack) 17 gm PO DAILY PRN PRN Reason: Constipation Rifaximin (Rifaximin 550 Mg Tablet) 550 mg PO BID [facility] Last Admin: 03/02/24 09:37 Dose: 550 mg Documented By: ECHO Sodium Chloride (0.9 % Sodium Chloride Flush 3 Ml Syringe) 3 ml IVFLUSH QSHIFT [facility] Last Admin: 03/02/24 09:37 Dose: 3 ml Documented By: ECHO Labs 03/02/24 06:28 03/02/24 06:28 Labs: Laboratory Results - last 24 hr 03/01/24 03/01/24 03/01/24 11:47 16:27 20:58 MCV MCH MCHC RDW Plt Count MPV Absolute Nucleated RBC Nucleated RBC % (auto) Anion Gap Estim Creat Clear Calc Estimated GFR POC Glucose 197 H 276 H 241 H Fasting Glucose Calcium Total Bilirubin Direct Bilirubin AST ALT Alkaline Phosphatase Total Protein Albumin 03/02/24 03/02/24 03/02/24 06:28 07:03 10:49 MCV 94.9 MCH 30.2 MCHC 31.9 RDW 19.9 H Plt Count 55 L D MPV 12.3 Absolute Nucleated RBC 0.000 Nucleated RBC % (auto) 0.0 Anion Gap 15 Estim Creat Clear Calc 44.5 Estimated GFR 33 POC Glucose 174 H 247 H Fasting Glucose 200 H Calcium 9.0 Total Bilirubin 7.2 H Direct Bilirubin 3.4 H AST 32 H ALT 28 Alkaline Phosphatase 101 Total Protein 6.1 L Albumin 3.7 Microbiology Microbiology Results: Microbiology 02/25/24 10:40 Gram Stain - Final Ascites Fluid Anaerobic Culture - Final NO GROWTH AFTER 5 DAYS Body Fluid Culture - Final No growth after 2 days Assessment and Plan (1) Increased ammonia level: Status: Acute (2) Pneumonia: Status: Acute Assessment and Plan: 73F PMH significant for?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 due to altered mental status. Recently admitted 02/10-02/16 for YORDAN complicated by acute hyponatremia and also noted to have new onset atrial fibrillation with RVR. admitted for further management of acute hepatic encephalopathy and multifocal pneumonia with sepsis. acute toxic metabolic encephalopathy related to hepatic encephalopathy due to Grimes cirrhosis Continues to improve mental status, but worsening jaundice NG tube and rectal tube removed On NDD2 solids and thin liquids Continue lactulose and rifaximin Sepsis due to acute multifocal pneumonia Completed 7 days of IV antibiotics Question coffee-ground emesis Likely due to irritation from NG tube Resolved Continue p.o. PPI paroxysmal atrial fibrillation with RVR Continue diltiazem, Eliquis acute hyperkalemia Resolved, monitor Grimes cirrhosis with anasarca ascitic fluid tap- 0.45 liter fluid removed fluid analysis less likely sbp, fluid culture-neg anasarca improved with diuresis with albumin tbili increasing, check ct abd, monitor, gi follow up chronic thrombocytopenia-related to cirrhosis platelets, somewhat trending down (likely related to liver disease -not due to sepsis). asthma/COPD overlap continue home inhalers, albuterol p.r.n. insulin-dependent type 2 diabetes with hyperglycemia history of hyperglycemia that is difficult to control control Continue basal bolus insulin hypothyroidism continue levothyroxine Morbid obesity Weight loss recommended DVT prophylaxis-Eliquis Full code reason for continued hospitalization: worsening jaundice Quality Stroke Does the patient have a stroke diagnosis?: No VTE Prior VTE?: No VTE Risk Level:: Medical - moderate - high VTE Device Contraindication: Treatment Not Indicated VTE Drug Contraindication: N/A - Med Ordered
[2024-03-02] MEDS: Insulin Lispro 100 UNIT/ML 3 ML VIAL SUBCUT ×3 (12:13→23:56)
--- NOTE | 2024-03-02 13:12 | MHC.CM.PN ---
EMR REVIEWED, PT W/WORSENING JAUNDICE, NO PLAN FOR DC TODAY, CORBY DO UPDATED AND WILL FOLLOW, CM WILL CONT TO FOLLOW DC NEEDS.
--- NOTE | 2024-03-02 14:19 | MHC.SL.SWA ---
Speech Pathologist Impression: Risk of Aspiration Due to: Lethargy Dysphasia Diet Status: Recommend patient continue with GROUND/MECH ALTERED solids (NDD2), THIN liquids, and pills whole in puree. Liquid Consistency and Strategies for Safe Swallow: Liquid Intake Recommendation: Thin Liquid Intake Strategies: Small Sips Solid Food Consistency: Dietary Recommendations: Grnd/Mech Altered (NDD2) Additional Modifications to Solid Foods: Oral Medication Intake: Whole with Puree Please contact the pharmacy regarding appropriate crushable or liquid drug formulations that are available whenever modified delivery is recommended. Compensatory Strategies and Precautions to be Taken for Safe Swallow: Sitting Upright (90 deg) Small Bites and Sips Alternate Liquids/Solids Rate of Ingestion Change Oral Check Supervision While Eating and Drinking for Safe Swallow: Total Assistance (1:1) Foods to Avoid: Swallowing Recommended Treatments: Compens. Strategy Educat. Recommendation for Speech: Inpatient Speech Therapy Comment: Patient seen at lunch for possible upgrade, trials of chopped texture foods. Chopped tray had been ordered from kitchen earlier in day, however tray delivered was ground. PATHOLOGY SUPERVISOR used chicken salad that came with meal on soft, crust less bread for trials. Head of bed was attempted to be raised to 90, however patient c/o at approximately 70 degrees and would not allow it put higher. Patient initially asked to bite off piece of bread w/chicken salad which was difficult due to edentulous state. Patient then given bite size piece of soft sandwich, with patient producing prolonged period of mastication, during which breathwork increased, patient evidenced some perspiration with effort. After prolonged period of mastication, patient initiated a timely swallow, had evident oral residual after swallow which was cleared with sip of liquid. Patient was then given bites of plain chicken salad (ground consistency) producing a mildly prolonged period of mastication, mild oral residual cleared by sip of liquid. Given effort noted to masticate soft/solid consistency, upgrade of diet not recommended at this time. Recommend continue on Ground/Mechanincal (NDD2) with thin liquids, pills whole in puree. PATHOLOGY SUPERVISOR will continue to follow. Frequency/Duration: M-F Date Range for Service Req: Timeline to reassess: Warehouse Production Worker Clinican/Clinical Fellow: No Supervisory Statement: I have reviewed and agree with the student/clinical fellow's documentation: N/A Speech Language Pathologist: April Phelps M.A., [facility]-PATHOLOGY SUPERVISOR
[2024-03-02 16:16] LABS: Glucose, Whole Blood 248 mg/dL (60-115)
--- NOTE | 2024-03-02 17:08 | P.PNGI_ITS ---
Subjective Subjective Date of Service: 03/02/24 Interval History: Reports feeling tired and weak, appetite is diminished. Denies abdominal pain. Critical Care Time (minutes): 0 Physical Exam 2 Vital Signs: Vital Signs: Last Vital Signs Temp 98.0 F 03/02/24 15:30 Pulse 82 03/02/24 15:30 Resp 16 03/02/24 15:30 BP 133/65 03/02/24 15:30 Pulse Ox 94 03/02/24 15:30 O2 Del Method Room Air 03/02/24 15:30 O2 Flow Rate 1 02/27/24 20:00 Oxygen Flow Rate 2 02/21/24 12:42 BMI result Body Mass Index 50.5 Const: General: cooperative, comfortable, no acute distress, alert, awake and ill appearing Eyes: Sclerae: scleral abnormal (Mildly icteric) GI: Other: Abd-Soft but distended, NT Extrem: Other: Pretibial edema Objective Data Labs 03/02/24 06:28 03/02/24 06:28 Labs: Laboratory Results - last 24 hr 03/01/24 03/01/24 03/02/24 16:27 20:58 06:28 WBC 6.9 RBC 3.34 L Hgb 10.1 L Hct 31.7 L MCV 94.9 MCH 30.2 MCHC 31.9 RDW 19.9 H Plt Count 55 L D MPV 12.3 Absolute Nucleated RBC 0.000 Nucleated RBC % (auto) 0.0 Sodium 139 Potassium 3.9 Chloride 108 Carbon Dioxide 20 L Anion Gap 15 BUN 53 H Creatinine 1.53 H Estim Creat Clear Calc 44.5 Estimated GFR 33 POC Glucose 276 H 241 H Fasting Glucose 200 H Calcium 9.0 Total Bilirubin 7.2 H Direct Bilirubin 3.4 H AST 32 H ALT 28 Alkaline Phosphatase 101 Total Protein 6.1 L Albumin 3.7 03/02/24 03/02/24 03/02/24 07:03 10:49 16:11 WBC RBC Hgb Hct MCV MCH MCHC RDW Plt Count MPV Absolute Nucleated RBC Nucleated RBC % (auto) Sodium Potassium Chloride Carbon Dioxide Anion Gap BUN Creatinine Estim Creat Clear Calc Estimated GFR POC Glucose 174 H 247 H 248 H Fasting Glucose Calcium Total Bilirubin Direct Bilirubin AST ALT Alkaline Phosphatase Total Protein Albumin Imaging CT scan - abdomen: Radiologist's impression: No biliary obstruction, + ascites Microbiology Microbiology Results: Microbiology 02/25/24 10:40 Ascites Fluid Gram Stain - Final 02/25/24 10:40 Ascites Fluid Anaerobic Culture - Final NO GROWTH AFTER 5 DAYS 02/25/24 10:40 Ascites Fluid Body Fluid Culture - Final No growth after 2 days 02/21/24 13:34 Blood - Venous Blood Culture - Final No growth after 5 days. 02/21/24 13:04 Blood - Venous Blood Culture - Final No growth after 5 days. Procedures Date of Service Date of Service: 03/02/24 Progress Note: A&P Assessment and plan (1) Cirrhosis: Status: Acute (2) Jaundice: Status: Acute (3) Abdominal ascites: Status: Inactive Plan Imp: Cirrhosis, ascites, jaundice, coagulopathy, thrombocytopenia I suspect the jaundice is due to cholestasis from the chronic liver disease and some decompensation. Other contributing factors to consider would be right-sided heart failure given her appearance and portal vein thrombosis. Also, her INR was up to 2.0 yesterday along with her low platelets and use of Eliquis. Rec: Recheck PT/INR and consider holding Eliquis, unless absolutely needed, due to increased risks of GI bleeding. Consider a dose of IV Vitamin K. Continue PPI. Check Doppler U/S of portal vein to R/O PVT. Low sodium diet added to her diet orders and diuretics as tolerated for her ascites and edema, although it looks like she already has some renal insufficiency. Supportive care in general Thanks Time Spent With Patient Time: Total time managing care of this patient today ____ minutes. Quality Stroke Does the patient have a stroke diagnosis?: No VTE Prior VTE?: No VTE Risk Level:: Medical - moderate - high VTE Device Contraindication: Treatment Not Indicated VTE Drug Contraindication: N/A - Med Ordered
--- NOTE | 2024-03-02 19:58 | P.PNNP_ITS ---
Subjective Subjective Date of Service: 03/02/24 Interval history: feeling tired and weak, appetite poor Physical Exam 2 Vital Signs: Vital Signs: Last Vital Signs Temp 98.0 F 03/02/24 15:30 Pulse 82 03/02/24 15:30 Resp 16 03/02/24 15:30 BP 133/65 03/02/24 15:30 Pulse Ox 94 03/02/24 15:30 O2 Del Method Room Air 03/02/24 15:30 O2 Flow Rate 1 02/27/24 20:00 Oxygen Flow Rate 2 02/21/24 12:42 BMI result Body Mass Index 50.5 Const: General: no acute distress Neck: Neck: Yes supple Resp: Auscultation: diminished lung sounds Cardio: Rate: regular rate GI: Palpation (GI): Soft to palpation Skin: Other: Jaundiced Neuro: General: moves all extremities Objective Data Labs 03/02/24 06:28 03/02/24 06:28 Labs: Laboratory Results - last 24 hr 03/01/24 03/02/24 03/02/24 20:58 06:28 07:03 WBC 6.9 RBC 3.34 L Hgb 10.1 L Hct 31.7 L MCV 94.9 MCH 30.2 MCHC 31.9 RDW 19.9 H Plt Count 55 L D MPV 12.3 Absolute Nucleated RBC 0.000 Nucleated RBC % (auto) 0.0 Sodium 139 Potassium 3.9 Chloride 108 Carbon Dioxide 20 L Anion Gap 15 BUN 53 H Creatinine 1.53 H Estim Creat Clear Calc 44.5 Estimated GFR 33 POC Glucose 241 H 174 H Fasting Glucose 200 H Calcium 9.0 Total Bilirubin 7.2 H Direct Bilirubin 3.4 H AST 32 H ALT 28 Alkaline Phosphatase 101 Total Protein 6.1 L Albumin 3.7 03/02/24 03/02/24 10:49 16:11 WBC RBC Hgb Hct MCV MCH MCHC RDW Plt Count MPV Absolute Nucleated RBC Nucleated RBC % (auto) Sodium Potassium Chloride Carbon Dioxide Anion Gap BUN Creatinine Estim Creat Clear Calc Estimated GFR POC Glucose 247 H 248 H Fasting Glucose Calcium Total Bilirubin Direct Bilirubin AST ALT Alkaline Phosphatase Total Protein Albumin Microbiology Microbiology Results: Microbiology 02/25/24 10:40 Ascites Fluid Gram Stain - Final 02/25/24 10:40 Ascites Fluid Anaerobic Culture - Final NO GROWTH AFTER 5 DAYS 02/25/24 10:40 Ascites Fluid Body Fluid Culture - Final No growth after 2 days 02/21/24 13:34 Blood - Venous Blood Culture - Final No growth after 5 days. 02/21/24 13:04 Blood - Venous Blood Culture - Final No growth after 5 days. Procedures Date of Service Date of Service: 03/02/24 Assessment & Plan Assessment and plan (1) CKD stage 3a, GFR 45-59 ml/min: Status: Acute Plan YORDAN superimposed on CKD due to hypoperfusion Creatinine is close to baseline. Hypervolemic- Needs diuresis H/O Hyperkalemia due to the combination of spironolactone in the setting of renal insufficiency. C/W rest of current supportive care for now Progress Note: Quality Stroke Does the patient have a stroke diagnosis?: No
[2024-03-02 20:20] LABS: Glucose, Whole Blood 233 mg/dL (60-115)
[2024-03-02 23:54] LABS: Glucose, Whole Blood 231 mg/dL (60-115)
[2024-03-02] MEDS: Montelukast Sodium 10 MG TABLET PO (23:56)
[2024-03-03] VITALS (10 sets, daily range): BP systolic 118–139; BP diastolic 58–70; PULSE 87–100; RESP 16–24; TEMP 36–37.2; O2SAT 93–96; BMI 52.0
[2024-03-03] MEDS: Omeprazole 20 MG CAPSULE.DR PO ×2 (05:32→17:59)
[2024-03-03] MEDS: Levothyroxine Sodium 50 MCG TABLET PO (05:32)
[2024-03-03 07:04] LABS: Glucose, Whole Blood 155 mg/dL (60-115)
[2024-03-03] MEDS: Fluticasone/Vilanterol 200/25 BLST.W.DEV 1 PUFF INHALE (07:49)
[2024-03-03] MEDS: rifAXIMin 550 MG TABLET PO ×2 (08:44→21:31)
[2024-03-03] MEDS: dilTIAZem HCL CD 120 MG CAP.ER.DEG PO (08:44)
[2024-03-03] MEDS: Apixaban 5 MG TABLET PO ×2 (08:44→21:31)
[2024-03-03] MEDS: Folic Acid 1 MG TABLET PO (08:44)
[2024-03-03] MEDS: Escitalopram Oxalate 10 MG TABLET PO (08:44)
[2024-03-03] MEDS: Ferrous Sulfate 324 MG TABLET.DR PO (08:44)
[2024-03-03] MEDS: Insulin Glargine,Hum.rec.anlog 100 UNIT/ML 10 ML VIAL 10 UNIT SUBCUT ×2 (08:45→21:32)
[2024-03-03] MEDS: Lactulose 20 GM/30 ML SOLUTION 30 GM PO ×2 (08:45→21:30)
[2024-03-03] MEDS: 0.9 % Sodium Chloride Flush 3 ML SYRINGE IVFLUSH ×3 (08:45→21:38)
[2024-03-03] MEDS: Furosemide 40 MG/4 ML VIAL IVPUSH ×2 (08:48→17:59)
[2024-03-03] MEDS: Nystatin Powder 15 GM BOTTLE 1 APPL TOPICAL ×4 (08:48→22:00)
--- NOTE | 2024-03-03 09:09 | P.PNNP_ITS ---
Subjective Subjective Date of Service: 03/03/24 Interval history: Events noted. All recent data reviewed Physical Exam 2 Vital Signs: Vital Signs: Last Vital Signs Temp 97.8 F 03/03/24 07:09 Pulse 87 03/03/24 08:44 Resp 24 H 03/03/24 07:51 BP 139/58 L 03/03/24 08:48 Pulse Ox 96 03/03/24 07:09 O2 Del Method Room Air 03/03/24 07:09 O2 Flow Rate 1 02/27/24 20:00 Oxygen Flow Rate 2 02/21/24 12:42 BMI result Body Mass Index 50.5 Const: General: no acute distress Neck: Neck: Yes supple Resp: Auscultation: diminished lung sounds Cardio: Rate: regular rate GI: Palpation (GI): Soft to palpation Neuro: General: moves all extremities Objective Data Labs 03/02/24 06:28 03/02/24 06:28 Labs: Laboratory Results - last 24 hr 03/02/24 03/02/24 03/02/24 10:49 16:11 19:48 POC Glucose 247 H 248 H 233 H 03/02/24 03/03/24 23:49 06:57 POC Glucose 231 H 155 H Microbiology Microbiology Results: Microbiology 02/25/24 10:40 Ascites Fluid Gram Stain - Final 02/25/24 10:40 Ascites Fluid Anaerobic Culture - Final NO GROWTH AFTER 5 DAYS 02/25/24 10:40 Ascites Fluid Body Fluid Culture - Final No growth after 2 days 02/21/24 13:34 Blood - Venous Blood Culture - Final No growth after 5 days. 02/21/24 13:04 Blood - Venous Blood Culture - Final No growth after 5 days. Procedures Date of Service Date of Service: 03/03/24 Assessment & Plan Assessment and plan (1) CKD stage 3a, GFR 45-59 ml/min: Status: Acute Plan YORDAN superimposed on CKD due to hypoperfusion Creatinine is close to baseline. Hypervolemic- Needs more diuresis H/O Hyperkalemia due to the combination of spironolactone in the setting of renal insufficiency. C/W rest of current supportive care for now Progress Note: Quality Stroke Does the patient have a stroke diagnosis?: No
--- NOTE | 2024-03-03 10:17 | HO.PM.IMPN ---
Subjective Subjective Date of Service: 03/03/24 Interval History: weak, some sob Physical Exam Vital Signs: Vital Signs: Last Vital Signs Temp 97.8 F 03/03/24 07:09 Pulse 87 03/03/24 08:44 Resp 24 H 03/03/24 07:51 BP 139/58 L 03/03/24 08:48 Pulse Ox 96 03/03/24 07:09 O2 Del Method Room Air 03/03/24 07:09 O2 Flow Rate 1 02/27/24 20:00 Oxygen Flow Rate 2 02/21/24 12:42 BMI result Body Mass Index 52.0 Const: General: no acute distress Neck: Neck: Yes supple Resp: Auscultation: diminished lung sounds Cardio: Rate: regular rate GI: Palpation (GI): Soft to palpation Neuro: General: moves all extremities Objective Data Active Medications Acetaminophen (Acetaminophen 325 Mg Tablet) 650 mg PO Q6H PRN PRN Reason: Headache Last Admin: 02/26/24 21:09 Dose: 650 mg Documented By: VINCENT Acetaminophen (Acetaminophen Supp 650 Mg Supp.Rect) 650 mg OR Q6H PRN PRN Reason: Fever Albuterol/Ipratropium (Albuterol/Iprat 2.5/0.5mg 3 Ml Ampul.Neb) 3 ml INHALE RQ4H WHILE AWAKE PRN PRN Reason: sob Apixaban (Apixaban 5 Mg Tablet) 5 mg PO BID [facility] Last Admin: 03/03/24 08:44 Dose: 5 mg Documented By: ECHO Calcium Carbonate (Calcium Carbonate 750 Mg Tab.Chew) 750 mg PO Q6H PRN PRN Reason: Heartburn Diltiazem HCl (Diltiazem Hcl Cd 120 Mg Cap.Er.Deg) 120 mg PO DAILY [facility]; Protocol Last Admin: 03/03/24 08:44 Dose: 120 mg Documented By: ECHO Escitalopram Oxalate (Escitalopram Oxalate 10 Mg Tablet) 10 mg PO DAILY [facility] Last Admin: 03/03/24 08:44 Dose: 10 mg Documented By: ECHO Ferrous Sulfate (Ferrous Sulfate 324 Mg Tablet.Dr) 324 mg PO DAILY [facility] Last Admin: 03/03/24 08:44 Dose: 324 mg Documented By: ECHO Fluticasone/Vilanterol (Fluticasone/Vilanterol 200/25 Blst.W.Dev) 1 puff INHALE DAILY [facility] Last Admin: 03/03/24 07:49 Dose: 1 puff Documented By: TERESITA Folic Acid (Folic Acid 1 Mg Tablet) 1 mg PO DAILY [facility] Last Admin: 03/03/24 08:44 Dose: 1 mg Documented By: ECHO Furosemide (Furosemide 40 Mg/4 Ml Vial) 40 mg IVPUSH BID@0900,1800 [facility]; Protocol Last Admin: 03/03/24 08:48 Dose: 40 mg Documented By: ECHO Glucose (Glucose Gel 15 Gm Gel..Gram.) 15 gm PO Q15M PRN; Protocol PRN Reason: per Hypoglycemia Standing Ord. Dextrose (D10) 250 mls @ 750 mls/hr IV Q15M PRN; Protocol PRN Reason: per Hypoglycemia Standing Ord. Insulin Glargine (Insulin Glargine,Hum.Rec.Anlog 100 Unit/Ml 10 Ml Vial) 10 unit SUBCUT BID [facility] Last Admin: 03/03/24 08:45 Dose: 10 unit Documented By: ECHO Insulin Human Lispro (Insulin Lispro 100 Unit/Ml 3 Ml Vial) 0 unit SUBCUT QIDACHS [facility]; Protocol Last Admin: 03/03/24 07:40 Dose: Not Given Documented By: ECHO Non-Admin Reason: No Insulin Coverage Lactulose (Lactulose 20 Gm/30 Ml Solution) 30 gm PO BID [facility] Last Admin: 03/03/24 08:45 Dose: 30 gm Documented By: ECHO Levothyroxine Sodium (Levothyroxine Sodium 50 Mcg Tablet) 50 mcg PO DAILY@0600 [facility] Last Admin: 03/03/24 05:32 Dose: 50 mcg Documented By: JODY Magnesium Hydroxide (Milk Of Magnesia 30 Ml Oral.Susp) 30 ml PO DAILY PRN PRN Reason: Constipation Melatonin (Melatonin 3 Mg Tablet) 6 mg PO BEDTIME PRN PRN Reason: Insomnia Last Admin: 02/29/24 20:56 Dose: 6 mg Documented By: ALEX Montelukast Sodium (Montelukast Sodium 10 Mg Tablet) 10 mg PO BEDTIME [facility] Last Admin: 03/02/24 23:56 Dose: 10 mg Documented By: JODY Nystatin (Nystatin Powder 15 Gm Bottle) 1 appl TOPICAL TID [facility]; Protocol Last Admin: 03/03/24 08:48 Dose: 1 appl Documented By: ECHO Omeprazole (Omeprazole 20 Mg Capsule.) 20 mg PO BID@0630,1630 [facility] Last Admin: 03/03/24 05:32 Dose: 20 mg Documented By: JODY Polyethylene Glycol (Polyethylene Glycol 3350 17 Gm Powd.Pack) 17 gm PO DAILY PRN PRN Reason: Constipation Rifaximin (Rifaximin 550 Mg Tablet) 550 mg PO BID [facility] Last Admin: 03/03/24 08:44 Dose: 550 mg Documented By: ECHO Sodium Chloride (0.9 % Sodium Chloride Flush 3 Ml Syringe) 3 ml IVFLUSH QSHIFT [facility] Last Admin: 03/03/24 08:45 Dose: 3 ml Documented By: ECHO Labs 03/02/24 06:28 03/02/24 06:28 Labs: Laboratory Results - last 24 hr 03/02/24 03/02/24 03/02/24 10:49 16:11 19:48 POC Glucose 247 H 248 H 233 H 03/02/24 03/03/24 23:49 06:57 POC Glucose 231 H 155 H Assessment and Plan (1) Increased ammonia level: Status: Acute (2) Pneumonia: Status: Acute Assessment and Plan: 73F PMH significant for?asthma/COPD overlap syndrome not on home O2, hx of PE on Eliquis, paroxysmal atrial fibrillation, insulin-dependent type 2 diabetes, hypothyroidism, GERD, GRIMES cirrhosis, and mood disorder presented to the ED from [facility] ([facility]) due to altered mental status. Recently admitted 02/10-02/16 for YORDAN complicated by acute hyponatremia and also noted to have new onset atrial fibrillation with RVR. admitted for further management of acute hepatic encephalopathy and multifocal pneumonia with sepsis. acute toxic metabolic encephalopathy related to hepatic encephalopathy due to Grimes cirrhosis improved mental status, but worsening jaundice NG tube and rectal tube removed On NDD2 solids and thin liquids Continue lactulose and rifaximin Sepsis due to acute multifocal pneumonia Completed 7 days of IV antibiotics Question coffee-ground emesis Likely due to irritation from NG tube Resolved Continue p.o. PPI paroxysmal atrial fibrillation with RVR Continue diltiazem, Eliquis acute hyperkalemia Resolved, monitor Grimes cirrhosis with anasarca ascitic fluid tap- 0.45 liter fluid removed fluid analysis less likely sbp, fluid culture-neg anasarca improved with diuresis with albumin tbili increasing, iv lasix 40mg bid portal vein patent on us chronic thrombocytopenia-related to cirrhosis asthma/COPD overlap continue home inhalers, albuterol p.r.n. insulin-dependent type 2 diabetes with hyperglycemia history of hyperglycemia that is difficult to control control Continue basal bolus insulin hypothyroidism continue levothyroxine Morbid obesity Weight loss recommended DVT prophylaxis-Eliquis Full code reason for continued hospitalization: worsening jaundice, iv diuresis Quality Stroke Does the patient have a stroke diagnosis?: No VTE Prior VTE?: No VTE Risk Level:: Medical - moderate - high VTE Device Contraindication: Treatment Not Indicated VTE Drug Contraindication: N/A - Med Ordered
[2024-03-03 10:50] LABS: Hematocrit 30.9 % (37.0-47.0); Mean Corpuscular HGB Conc 32.4 g/dl (31.0-35.0); Mean Corpuscular Hemoglobin 30.2 pg (27.0-33.0); Mean Corpuscular Volume 93.4 fL (80.0-98.0); Mean Platelet Volume 11.7 fL (9.4-12.3); Red Blood Count 3.31 X10*6/uL (4.20-5.50); Red Cell Distribution Width 20.2 % (11.0-16.0); White Blood Count 6.9 X10*3/uL (4.8-10.8)
[2024-03-03 10:51] LABS: Platelet Count 59 X10*3/uL (160-400)
[2024-03-03 10:53] LABS: INTERNATIONAL NORM RATIO 2.1 (0.9-1.1); Prothrombin Time 26.1 SEC (11.1-13.3)
[2024-03-03 10:59] LABS: Glucose, Whole Blood 253 mg/dL (60-115)
[2024-03-03 11:26] LABS: Alanine Aminotransferase 28 U/L (0-31); Albumin Level 3.2 g/dL (3.5-5.0); Alkaline Phosphatase 110 U/L (39-117); Anion Gap 11 (12-20); Aspartate Amino Transferase 37 U/L (5-31); Bilirubin Direct 3.4 mg/dL (0.0-0.5); Blood Urea Nitrogen 46 mg/dL (9-16); Calcium 8.5 mg/dL (8.4-10.2); Carbon Dioxide 21 mmol/L (22-29); Chloride 108 mmol/L (96-108); Creatinine Clr Calc Pharmacy 45.1; Estimated Glomerular Filt Rate 33; Glucose Fasting 293 mg/dL (60-99); Potassium 3.8 mmol/L (3.3-5.1); Sodium 136 mmol/L (135-145); Total Protein 5.7 g/dL (6.5-8.0)
--- NOTE | 2024-03-03 11:57 | MHC.CM.PN ---
EMR REVIEWED, PT W/FLUID OVERLOAD WILL NEED CONT'D IV DIURESIS, NO PLAN FOR DC AT THIS TIME, PLAN REMAINS FOR PT TO RETURN TO [facility] FOR STR ONCE MEDICALLY CLEARED, CM WILL CONT TO FOLLOW DC NEEDS.
[2024-03-03 12:07] LABS: Bilirubin Total 6.7 mg/dL (0.0-1.0)
[2024-03-03] MEDS: Insulin Lispro 100 UNIT/ML 3 ML VIAL SUBCUT ×3 (12:50→21:31)
--- NOTE | 2024-03-03 13:00 | MHC.SL.SWA ---
Speech Pathologist Impression: Risk of aspiration, oropharyngeal dysphagia Risk of Aspiration Due to: Lethargy Dysphasia Diet Status: Recommend patient continue with GROUND/MECH ALTERED solids (NDD2), THIN liquids, and pills whole in puree. Liquid Consistency and Strategies for Safe Swallow: Liquid Intake Recommendation: Thin Liquid Intake Strategies: Small Sips Solid Food Consistency: Dietary Recommendations: Grnd/Mech Altered (NDD2) Oral Medication Intake: Whole with Puree Please contact the pharmacy regarding appropriate crushable or liquid drug formulations that are available whenever modified delivery is recommended. Compensatory Strategies and Precautions to be Taken for Safe Swallow: Sitting Upright (90 deg) Small Bites and Sips Alternate Liquids/Solids Rate of Ingestion Change Oral Check Supervision While Eating and Drinking for Safe Swallow: Total Assistance (1:1) Swallowing Recommended Treatments: Compens. Strategy Educat. Recommendation for Speech: Inpatient Speech Therapy Frequency/Duration: M-F Date Range for Service Req: Timeline to reassess: Die Repairer Forging Clinican/Clinical Fellow: No Supervisory Statement: I have reviewed and agree with the student/clinical fellow's documentation: N/A Speech Language Pathologist: Jazmine Vaca M.A., CCC-[employer]MENT SALES ENGINEER
[2024-03-03 16:31] LABS: Glucose, Whole Blood 222 mg/dL (60-115)
[2024-03-03] MEDS: Montelukast Sodium 10 MG TABLET PO (21:31)
[2024-03-03] MEDS: Acetaminophen 325 MG TABLET 650 MG PO (21:33)
[2024-03-03 23:44] LABS: Glucose, Whole Blood 190 mg/dL (60-115)
[2024-03-04] VITALS (11 sets, daily range): BP systolic 131–143; BP diastolic 61–67; PULSE 74–97; RESP 18–20; TEMP 36–37.1; O2SAT 94–100; BMI 50.7
[2024-03-04] MEDS: Levothyroxine Sodium 50 MCG TABLET PO (05:38)
[2024-03-04] MEDS: Omeprazole 20 MG CAPSULE.DR PO ×2 (05:38→17:02)
[2024-03-04 07:33] LABS: Hematocrit 29.9 % (37.0-47.0); Hemoglobin 9.7 g/dl (12.0-16.0); Mean Corpuscular HGB Conc 32.4 g/dl (31.0-35.0); Mean Corpuscular Hemoglobin 30.1 pg (27.0-33.0); Mean Corpuscular Volume 92.9 fL (80.0-98.0); Mean Platelet Volume 11.7 fL (9.4-12.3); Red Blood Count 3.22 X10*6/uL (4.20-5.50); Red Cell Distribution Width 20.3 % (11.0-16.0); White Blood Count 6.2 X10*3/uL (4.8-10.8)
[2024-03-04 07:34] LABS: Platelet Count 66 X10*3/uL (160-400)
[2024-03-04 07:36] LABS: INTERNATIONAL NORM RATIO 2.2 (0.9-1.1); Prothrombin Time 26.8 SEC (11.1-13.3)
[2024-03-04 07:48] LABS: Glucose, Whole Blood 174 mg/dL (60-115)
[2024-03-04 07:53] LABS: Alanine Aminotransferase 31 U/L (0-31); Albumin Level 3.2 g/dL (3.5-5.0); Alkaline Phosphatase 116 U/L (39-117); Anion Gap 12 (12-20); Aspartate Amino Transferase 42 U/L (5-31); Bilirubin Direct 3.4 mg/dL (0.0-0.5); Bilirubin Total 6.4 mg/dL (0.0-1.0); Blood Urea Nitrogen 45 mg/dL (9-16); Calcium 8.8 mg/dL (8.4-10.2); Carbon Dioxide 24 mmol/L (22-29); Chloride 107 mmol/L (96-108); Creatinine Clr Calc Pharmacy 45.5; Estimated Glomerular Filt Rate 34; Glucose Fasting 190 mg/dL (60-99); Magnesium 1.7 mg/dL (1.6-2.6); Potassium 3.3 mmol/L (3.3-5.1); Sodium 140 mmol/L (135-145); Total Protein 6.1 g/dL (6.5-8.0)
[2024-03-04] MEDS: Fluticasone/Vilanterol 200/25 BLST.W.DEV 1 PUFF INHALE (08:32)
[2024-03-04] MEDS: Insulin Glargine,Hum.rec.anlog 100 UNIT/ML 10 ML VIAL 10 UNIT SUBCUT ×2 (09:13→21:21)
[2024-03-04] MEDS: Apixaban 5 MG TABLET PO ×2 (09:13→21:21)
[2024-03-04] MEDS: dilTIAZem HCL CD 120 MG CAP.ER.DEG PO (09:13)
[2024-03-04] MEDS: Acetaminophen 325 MG TABLET 650 MG PO ×2 (09:13→21:21)
[2024-03-04] MEDS: Folic Acid 1 MG TABLET PO (09:13)
[2024-03-04] MEDS: Escitalopram Oxalate 10 MG TABLET PO (09:13)
[2024-03-04] MEDS: rifAXIMin 550 MG TABLET PO ×2 (09:14→21:21)
[2024-03-04] MEDS: Ferrous Sulfate 324 MG TABLET.DR PO (09:14)
[2024-03-04] MEDS: Lactulose 20 GM/30 ML SOLUTION 30 GM PO ×2 (09:14→21:20)
[2024-03-04] MEDS: Furosemide 40 MG/4 ML VIAL IVPUSH ×2 (09:15→17:03)
[2024-03-04] MEDS: Nystatin Powder 15 GM BOTTLE 1 APPL TOPICAL ×2 (09:15→15:50)
[2024-03-04] MEDS: 0.9 % Sodium Chloride Flush 3 ML SYRINGE IVFLUSH ×3 (09:16→21:24)
[2024-03-04] MEDS: Phytonadione (Vit K1) 5 MG in 0.9 % Sodium Chloride 50 ML 50.5 MG IV (10:16)
[2024-03-04] MEDS: Potassium Chloride ER 20 MEQ TAB.ER.PRT 40 MEQ PO (10:16)
--- NOTE | 2024-03-04 10:32 | HO.PM.IMPN ---
Subjective Subjective Date of Service: 03/04/24 Interval History: weak, some sob Physical Exam Vital Signs: Vital Signs: Last Vital Signs Temp 96.8 F 03/04/24 07:26 Pulse 80 03/04/24 09:13 Resp 18 03/04/24 08:35 BP 137/64 03/04/24 09:15 Pulse Ox 96 03/04/24 07:26 O2 Del Method Room Air 03/04/24 07:26 O2 Flow Rate 1 02/27/24 20:00 Oxygen Flow Rate 2 02/21/24 12:42 BMI result Body Mass Index 50.7 Const: General: no acute distress Neck: Neck: Yes supple Resp: Auscultation: diminished lung sounds Cardio: Rate: regular rate GI: Palpation (GI): Soft to palpation Neuro: General: moves all extremities Objective Data Active Medications Acetaminophen (Acetaminophen 325 Mg Tablet) 650 mg PO Q6H PRN PRN Reason: Headache Last Admin: 03/04/24 09:13 Dose: 650 mg Documented By: ZOHAIB Acetaminophen (Acetaminophen Supp 650 Mg Supp.Rect) [address] Q6H PRN PRN Reason: Fever Albuterol/Ipratropium (Albuterol/Iprat 2.5/0.5mg 3 Ml Ampul.Neb) 3 ml INHALE RQ4H WHILE AWAKE PRN PRN Reason: sob Apixaban (Apixaban 5 Mg Tablet) 5 mg PO BID [facility] Last Admin: 03/04/24 09:13 Dose: 5 mg Documented By: ZOHAIB Calcium Carbonate (Calcium Carbonate 750 Mg Tab.Chew) 750 mg PO Q6H PRN PRN Reason: Heartburn Diltiazem HCl (Diltiazem Hcl Cd 120 Mg Cap.Er.Deg) 120 mg PO DAILY [facility]; Protocol Last Admin: 03/04/24 09:13 Dose: 120 mg Documented By: ZOHAIB Escitalopram Oxalate (Escitalopram Oxalate 10 Mg Tablet) 10 mg PO DAILY [facility] Last Admin: 03/04/24 09:13 Dose: 10 mg Documented By: ZOHAIB Ferrous Sulfate (Ferrous Sulfate 324 Mg Tablet.Dr) 324 mg PO DAILY [facility] Last Admin: 03/04/24 09:14 Dose: 324 mg Documented By: ZOHAIB Fluticasone/Vilanterol (Fluticasone/Vilanterol 200/25 Blst.W.Dev) 1 puff INHALE DAILY [facility] Last Admin: 03/04/24 08:32 Dose: 1 puff Documented By: KATHI Folic Acid (Folic Acid 1 Mg Tablet) 1 mg PO DAILY [facility] Last Admin: 03/04/24 09:13 Dose: 1 mg Documented By: ZOHAIB Furosemide (Furosemide 40 Mg/4 Ml Vial) 40 mg IVPUSH BID@0900,1800 [facility]; Protocol Last Admin: 03/04/24 09:15 Dose: 40 mg Documented By: ZOHAIB Glucose (Glucose Gel 15 Gm Gel..Gram.) 15 gm PO Q15M PRN; Protocol PRN Reason: per Hypoglycemia Standing Ord. Dextrose (D10) 250 mls @ 750 mls/hr IV Q15M PRN; Protocol PRN Reason: per Hypoglycemia Standing Ord. Insulin Glargine (Insulin Glargine,Hum.Rec.Anlog 100 Unit/Ml 10 Ml Vial) 10 unit SUBCUT BID [facility] Last Admin: 03/04/24 09:13 Dose: 10 unit Documented By: ZOHAIB Insulin Human Lispro (Insulin Lispro 100 Unit/Ml 3 Ml Vial) 0 unit SUBCUT QIDACHS [facility]; Protocol Last Admin: 03/04/24 07:49 Dose: Not Given Documented By: ZOHAIB Non-Admin Reason: No Insulin Coverage Lactulose (Lactulose 20 Gm/30 Ml Solution) 30 gm PO BID [facility] Last Admin: 03/04/24 09:14 Dose: 30 gm Documented By: ZOHAIB Levothyroxine Sodium (Levothyroxine Sodium 50 Mcg Tablet) 50 mcg PO DAILY@0600 [facility] Last Admin: 03/04/24 05:38 Dose: 50 mcg Documented By: JARED Magnesium Hydroxide (Milk Of Magnesia 30 Ml Oral.Susp) 30 ml PO DAILY PRN PRN Reason: Constipation Melatonin (Melatonin 3 Mg Tablet) 6 mg PO BEDTIME PRN PRN Reason: Insomnia Last Admin: 02/29/24 20:56 Dose: 6 mg Documented By: ALEX Montelukast Sodium (Montelukast Sodium 10 Mg Tablet) 10 mg PO BEDTIME [facility] Last Admin: 03/03/24 21:31 Dose: 10 mg Documented By: JARED Nystatin (Nystatin Powder 15 Gm Bottle) 1 appl TOPICAL TID [facility]; Protocol Last Admin: 03/04/24 09:15 Dose: 1 appl Documented By: ZOHAIB Omeprazole (Omeprazole 20 Mg Capsule.) 20 mg PO BID@0630,1630 [facility] Last Admin: 03/04/24 05:38 Dose: 20 mg Documented By: JARED Polyethylene Glycol (Polyethylene Glycol 3350 17 Gm Powd.Pack) 17 gm PO DAILY PRN PRN Reason: Constipation Rifaximin (Rifaximin 550 Mg Tablet) 550 mg PO BID [facility] Last Admin: 03/04/24 09:14 Dose: 550 mg Documented By: ZOHAIB Sodium Chloride (0.9 % Sodium Chloride Flush 3 Ml Syringe) 3 ml IVFLUSH QSHIFT [facility] Last Admin: 03/04/24 09:16 Dose: 3 ml Documented By: ZOHAIB Labs 03/04/24 06:45 03/04/24 06:45 Labs: Laboratory Results - last 24 hr 03/03/24 03/03/24 03/03/24 10:40 10:55 16:14 MCV 93.4 MCH 30.2 MCHC 32.4 RDW 20.2 H Plt Count 59 L MPV 11.7 Absolute Nucleated RBC 0.000 Nucleated RBC % (auto) 0.0 PT 26.1 H INR 2.1 H Anion Gap 11 L Estim Creat Clear Calc 45.1 Estimated GFR 33 POC Glucose 253 H 222 H Fasting Glucose 293 H Calcium 8.5 Magnesium Total Bilirubin 6.7 H Direct Bilirubin 3.4 H AST 37 H ALT 28 Alkaline Phosphatase 110 Total Protein 5.7 L Albumin 3.2 L 03/03/24 03/04/24 03/04/24 23:40 06:45 07:30 MCV 92.9 MCH 30.1 MCHC 32.4 RDW 20.3 H Plt Count 66 L MPV 11.7 Absolute Nucleated RBC 0.000 Nucleated RBC % (auto) 0.0 PT 26.8 H INR 2.2 H Anion Gap 12 Estim Creat Clear Calc 45.5 Estimated GFR 34 POC Glucose 190 H 174 H Fasting Glucose 190 H Calcium 8.8 Magnesium 1.7 Total Bilirubin 6.4 H Direct Bilirubin 3.4 H AST 42 H ALT 31 Alkaline Phosphatase 116 Total Protein 6.1 L Albumin 3.2 L Assessment and Plan (1) Increased ammonia level: Status: Acute (2) Pneumonia: Status: Acute Assessment and Plan: 73F PMH significant for?asthma/COPD overlap syndrome not on home O2, hx of PE on Eliquis, paroxysmal atrial fibrillation, insulin-dependent type 2 diabetes, hypothyroidism, GERD, GRIMES cirrhosis, and mood disorder presented to the ED from [facility] ([facility]) due to altered mental status. Recently admitted 02/10-02/16 for YORDAN complicated by acute hyponatremia and also noted to have new onset atrial fibrillation with RVR. admitted for further management of acute hepatic encephalopathy and multifocal pneumonia with sepsis. acute toxic metabolic encephalopathy related to hepatic encephalopathy due to Grimes cirrhosis improved mental status, but worsening jaundice NG tube and rectal tube removed On NDD2 solids and thin liquids Continue lactulose and rifaximin Sepsis due to acute multifocal pneumonia Completed 7 days of IV antibiotics Question coffee-ground emesis Likely due to irritation from NG tube Resolved Continue p.o. PPI paroxysmal atrial fibrillation with RVR Continue diltiazem, Eliquis acute hypokalemia Replace, monitor Grimes cirrhosis with anasarca ascitic fluid tap- 0.45 liter fluid removed fluid analysis less likely sbp, fluid culture-neg anasarca improved with diuresis with albumin continue iv lasix 40mg bid portal vein patent on us will give vit k for increasing inr, monitor chronic thrombocytopenia-related to cirrhosis asthma/COPD overlap continue home inhalers, albuterol p.r.n. insulin-dependent type 2 diabetes with hyperglycemia history of hyperglycemia that is difficult to control control Continue basal bolus insulin hypothyroidism continue levothyroxine Morbid obesity Weight loss recommended DVT prophylaxis-Eliquis Full code reason for continued hospitalization: iv diuresis Quality Stroke Does the patient have a stroke diagnosis?: No VTE Prior VTE?: No VTE Risk Level:: Medical - moderate - high VTE Device Contraindication: Treatment Not Indicated VTE Drug Contraindication: N/A - Med Ordered
[2024-03-04 11:29] LABS: Glucose, Whole Blood 308 mg/dL (60-115)
[2024-03-04] MEDS: Insulin Lispro 100 UNIT/ML 3 ML VIAL SUBCUT ×2 (12:22→17:02)
[2024-03-04 16:29] LABS: Glucose, Whole Blood 223 mg/dL (60-115)
[2024-03-04 21:18] LABS: Glucose, Whole Blood 198 mg/dL (60-115)
[2024-03-04] MEDS: Montelukast Sodium 10 MG TABLET PO (21:21)
[2024-03-05] VITALS (10 sets, daily range): BP systolic 133–156; BP diastolic 61–80; PULSE 74–106; RESP 20–26; TEMP 36.1–36.8; O2SAT 96–100
[2024-03-05] MEDS: Omeprazole 20 MG CAPSULE.DR PO ×2 (05:46→17:16)
[2024-03-05] MEDS: Levothyroxine Sodium 50 MCG TABLET PO (05:46)
[2024-03-05] MEDS: Fluticasone/Vilanterol 200/25 BLST.W.DEV 1 PUFF INHALE (07:49)
[2024-03-05 07:53] LABS: Hematocrit 33.6 % (37.0-47.0); Hemoglobin 10.8 g/dl (12.0-16.0); Mean Corpuscular HGB Conc 32.1 g/dl (31.0-35.0); Mean Corpuscular Volume 93.3 fL (80.0-98.0); Mean Platelet Volume 11.9 fL (9.4-12.3); Red Cell Distribution Width 20.6 % (11.0-16.0); White Blood Count 6.9 X10*3/uL (4.8-10.8)
[2024-03-05 07:57] LABS: INTERNATIONAL NORM RATIO 1.7 (0.9-1.1); Prothrombin Time 20.3 SEC (11.1-13.3)
[2024-03-05 07:59] LABS: Glucose, Whole Blood 248 mg/dL (60-115)
[2024-03-05 08:03] LABS: Platelet Count 87 X10*3/uL (160-400)
[2024-03-05 08:16] LABS: Alanine Aminotransferase 30 U/L (0-31); Albumin Level 3.2 g/dL (3.5-5.0); Alkaline Phosphatase 137 U/L (39-117); Anion Gap 14 (12-20); Aspartate Amino Transferase 38 U/L (5-31); Bilirubin Direct 3.3 mg/dL (0.0-0.5); Bilirubin Total 6.5 mg/dL (0.0-1.0); Blood Urea Nitrogen 41 mg/dL (9-16); Calcium 8.9 mg/dL (8.4-10.2); Carbon Dioxide 24 mmol/L (22-29); Chloride 104 mmol/L (96-108); Creatinine Clr Calc Pharmacy 50.9; Estimated Glomerular Filt Rate 39; Glucose Fasting 275 mg/dL (60-99); Magnesium 1.6 mg/dL (1.6-2.6); Potassium 3.7 mmol/L (3.3-5.1); Sodium 138 mmol/L (135-145)
[2024-03-05] MEDS: Furosemide 40 MG/4 ML VIAL IVPUSH ×2 (08:34→17:16)
[2024-03-05] MEDS: Lactulose 20 GM/30 ML SOLUTION 30 GM PO ×2 (08:35→22:20)
[2024-03-05] MEDS: rifAXIMin 550 MG TABLET PO ×2 (08:35→22:20)
[2024-03-05] MEDS: Apixaban 5 MG TABLET PO ×2 (08:35→22:20)
[2024-03-05] MEDS: Folic Acid 1 MG TABLET PO (08:35)
[2024-03-05] MEDS: Insulin Glargine,Hum.rec.anlog 100 UNIT/ML 10 ML VIAL 10 UNIT SUBCUT ×2 (08:36→22:21)
[2024-03-05] MEDS: Ferrous Sulfate 324 MG TABLET.DR PO (08:36)
[2024-03-05] MEDS: 0.9 % Sodium Chloride Flush 3 ML SYRINGE IVFLUSH ×3 (08:36→22:22)
[2024-03-05] MEDS: dilTIAZem HCL CD 120 MG CAP.ER.DEG PO (08:36)
[2024-03-05] MEDS: Insulin Lispro 100 UNIT/ML 3 ML VIAL SUBCUT ×4 (08:36→22:21)
[2024-03-05] MEDS: Escitalopram Oxalate 10 MG TABLET PO (08:36)
[2024-03-05] MEDS: Nystatin Powder 15 GM BOTTLE 1 APPL TOPICAL ×3 (08:37→22:22)
--- NOTE | 2024-03-05 09:12 | P.PNIM_ITS ---
Subjective Subjective Date of Service: 03/05/24 Interval History: insomnia Physical Exam 2 Vital Signs: Vital Signs: Last Vital Signs Temp 97.9 F 03/05/24 08:00 Pulse 75 03/05/24 08:36 Resp 20 03/05/24 08:00 BP 133/61 03/05/24 08:36 Pulse Ox 97 03/05/24 08:00 O2 Del Method Room Air 03/05/24 08:00 O2 Flow Rate 1 02/27/24 20:00 Oxygen Flow Rate 2 02/21/24 12:42 BMI result Body Mass Index 50.7 Const: General: no acute distress Neck: Neck: Yes supple Resp: Auscultation: diminished lung sounds Cardio: Rate: regular rate GI: Palpation (GI): Soft to palpation Neuro: General: moves all extremities Objective Data Active Medications Acetaminophen (Acetaminophen 325 Mg Tablet) 650 mg PO Q6H PRN PRN Reason: Headache Last Admin: 03/04/24 21:21 Dose: 650 mg Documented By: VINCENT Acetaminophen (Acetaminophen Supp 650 Mg Supp.Rect) 650 mg PA Q6H PRN PRN Reason: Fever Albuterol/Ipratropium (Albuterol/Iprat 2.5/0.5mg 3 Ml Ampul.Neb) 3 ml INHALE RQ4H WHILE AWAKE PRN PRN Reason: sob Apixaban (Apixaban 5 Mg Tablet) 5 mg PO BID [facility] Last Admin: 03/05/24 08:35 Dose: 5 mg Documented By: ZOHAIB Calcium Carbonate (Calcium Carbonate 750 Mg Tab.Chew) 750 mg PO Q6H PRN PRN Reason: Heartburn Diltiazem HCl (Diltiazem Hcl Cd 120 Mg Cap.Er.Deg) 120 mg PO DAILY [facility]; Protocol Last Admin: 03/05/24 08:36 Dose: 120 mg Documented By: ZOHAIB Escitalopram Oxalate (Escitalopram Oxalate 10 Mg Tablet) 10 mg PO DAILY [facility] Last Admin: 03/05/24 08:36 Dose: 10 mg Documented By: ZOHAIB Ferrous Sulfate (Ferrous Sulfate 324 Mg Tablet.Dr) 324 mg PO DAILY [facility] Last Admin: 03/05/24 08:36 Dose: 324 mg Documented By: ZOHAIB Fluticasone/Vilanterol (Fluticasone/Vilanterol 200/25 Blst.W.Dev) 1 puff INHALE DAILY [facility] Last Admin: 03/05/24 07:49 Dose: 1 puff Documented By: JAMILA Folic Acid (Folic Acid 1 Mg Tablet) 1 mg PO DAILY [facility] Last Admin: 03/05/24 08:35 Dose: 1 mg Documented By: ZOHAIB Furosemide (Furosemide 40 Mg/4 Ml Vial) 40 mg IVPUSH BID@0900,1800 [facility]; Protocol Last Admin: 03/05/24 08:34 Dose: 40 mg Documented By: ZOHAIB Glucose (Glucose Gel 15 Gm Gel..Gram.) 15 gm PO Q15M PRN; Protocol PRN Reason: per Hypoglycemia Standing Ord. Dextrose (D10) 250 mls @ 750 mls/hr IV Q15M PRN; Protocol PRN Reason: per Hypoglycemia Standing Ord. Insulin Glargine (Insulin Glargine,Hum.Rec.Anlog 100 Unit/Ml 10 Ml Vial) 10 unit SUBCUT BID [facility] Last Admin: 03/05/24 08:36 Dose: 10 unit Documented By: ZOHAIB Insulin Human Lispro (Insulin Lispro 100 Unit/Ml 3 Ml Vial) 0 unit SUBCUT QIDACHS [facility]; Protocol Last Admin: 03/05/24 08:36 Dose: 2 unit Documented By: ZOHAIB Lactulose (Lactulose 20 Gm/30 Ml Solution) 30 gm PO BID [facility] Last Admin: 03/05/24 08:35 Dose: 30 gm Documented By: ZOHAIB Levothyroxine Sodium (Levothyroxine Sodium 50 Mcg Tablet) 50 mcg PO DAILY@0600 [facility] Last Admin: 03/05/24 05:46 Dose: 50 mcg Documented By: VINCENT Magnesium Hydroxide (Milk Of Magnesia 30 Ml Oral.Susp) 30 ml PO DAILY PRN PRN Reason: Constipation Melatonin (Melatonin 3 Mg Tablet) 6 mg PO BEDTIME PRN PRN Reason: Insomnia Last Admin: 02/29/24 20:56 Dose: 6 mg Documented By: ALEX Montelukast Sodium (Montelukast Sodium 10 Mg Tablet) 10 mg PO BEDTIME [facility] Last Admin: 03/04/24 21:21 Dose: 10 mg Documented By: VINCENT Nystatin (Nystatin Powder 15 Gm Bottle) 1 appl TOPICAL TID [facility]; Protocol Last Admin: 03/05/24 08:37 Dose: 1 appl Documented By: ZOHAIB Omeprazole (Omeprazole 20 Mg Capsule.) 20 mg PO BID@0630,1630 [facility] Last Admin: 03/05/24 05:46 Dose: 20 mg Documented By: VINCENT Polyethylene Glycol (Polyethylene Glycol 3350 17 Gm Powd.Pack) 17 gm PO DAILY PRN PRN Reason: Constipation Rifaximin (Rifaximin 550 Mg Tablet) 550 mg PO BID [facility] Last Admin: 03/05/24 08:35 Dose: 550 mg Documented By: ZOHAIB Sodium Chloride (0.9 % Sodium Chloride Flush 3 Ml Syringe) 3 ml IVFLUSH QSHIFT [facility] Last Admin: 03/05/24 08:36 Dose: 3 ml Documented By: ZOHAIB Labs 03/05/24 07:18 03/05/24 07:18 Labs: Laboratory Results - last 24 hr 03/04/24 03/04/24 03/04/24 11:12 16:18 21:12 MCV MCH MCHC RDW Plt Count MPV Absolute Nucleated RBC Nucleated RBC % (auto) PT INR Anion Gap Estim Creat Clear Calc Estimated GFR POC Glucose 308 H 223 H 198 H Fasting Glucose Calcium Magnesium Total Bilirubin Direct Bilirubin AST ALT Alkaline Phosphatase Total Protein Albumin 03/05/24 03/05/24 07:18 07:49 MCV 93.3 MCH 30.0 MCHC 32.1 RDW 20.6 H Plt Count 87 L D MPV 11.9 Absolute Nucleated RBC 0.000 Nucleated RBC % (auto) 0.0 PT 20.3 H D INR 1.7 H Anion Gap 14 Estim Creat Clear Calc 50.9 Estimated GFR 39 POC Glucose 248 H Fasting Glucose 275 H Calcium 8.9 Magnesium 1.6 Total Bilirubin 6.5 H Direct Bilirubin 3.3 H AST 38 H ALT 30 Alkaline Phosphatase 137 H Total Protein 6.0 L Albumin 3.2 L Assessment and Plan (1) Increased ammonia level: Status: Acute (2) Pneumonia: Status: Acute Assessment and Plan: 73F PMH significant for?asthma/COPD overlap syndrome not on home O2, hx of PE on Eliquis, paroxysmal atrial fibrillation, insulin-dependent type 2 diabetes, hypothyroidism, GERD, GRIMES cirrhosis, and mood disorder presented to the ED from [facility] ([place] [facility]) due to altered mental status. Recently admitted 02/10-02/16 for YORDAN complicated by acute hyponatremia and also noted to have new onset atrial fibrillation with RVR. admitted for further management of acute hepatic encephalopathy and multifocal pneumonia with sepsis. acute toxic metabolic encephalopathy related to hepatic encephalopathy due to Grimes cirrhosis improved mental status NG tube and rectal tube removed On NDD2 solids and thin liquids Continue lactulose and rifaximin Sepsis due to acute multifocal pneumonia Completed 7 days of IV antibiotics Question coffee-ground emesis Likely due to irritation from NG tube Resolved Continue p.o. PPI paroxysmal atrial fibrillation with RVR Continue diltiazem, Eliquis acute hypokalemia Replace, monitor Grimes cirrhosis with anasarca ascitic fluid tap- 0.45 liter fluid removed fluid analysis less likely sbp, fluid culture-neg anasarca improved with diuresis with albumin continue iv lasix 40mg bid portal vein patent on us given vit k for increasing inr, improved chronic thrombocytopenia-related to cirrhosis asthma/COPD overlap continue home inhalers, albuterol p.r.n. insulin-dependent type 2 diabetes with hyperglycemia history of hyperglycemia that is difficult to control control Continue basal bolus insulin hypothyroidism continue levothyroxine Morbid obesity Weight loss recommended DVT prophylaxis-Eliquis Full code reason for continued hospitalization: iv diuresis Quality Stroke Does the patient have a stroke diagnosis?: No VTE Prior VTE?: No VTE Risk Level:: Medical - moderate - high VTE Device Contraindication: Treatment Not Indicated VTE Drug Contraindication: N/A - Med Ordered
[2024-03-05 11:49] LABS: Glucose, Whole Blood 250 mg/dL (60-115)
[2024-03-05 16:34] LABS: Glucose, Whole Blood 346 mg/dL (60-115)
[2024-03-05] MEDS: Albuterol/Iprat 2.5/0.5MG 3 ML AMPUL.NEB INHALE (18:38)
--- NOTE | 2024-03-05 18:42 | PM.EVENT ---
Event Note Date of Service: 03/05/24 Event Note: Notified by nursing that family was concerned that patient's pupils were asymmetrical. Patient seen and examined with Dr. Mota. Patient has no acute vision complaints. Denies recent headache. Upon examination patient's pupils were equal, round, and reactive to light. No other focal deficits noted. Respiratory therapist also at bedside states patient's breathing and appearance appear at baseline for this admission. Patient was set to receive a breathing treatment. CT scan of head ordered. Will follow results. Time Spent With Patient Time: Total time managing care of this patient today ____ minutes.
[2024-03-05 21:39] LABS: Glucose, Whole Blood 368 mg/dL (60-115)
[2024-03-05] MEDS: Montelukast Sodium 10 MG TABLET PO (22:20)
[2024-03-06] VITALS (14 sets, daily range): BP systolic 111–176; BP diastolic 58–79; PULSE 80–123; RESP 16–20; TEMP 36.3–37; O2SAT 97–100; BMI 50.8
[2024-03-06] MEDS: Omeprazole 20 MG CAPSULE.DR PO ×2 (05:41→16:09)
[2024-03-06] MEDS: Levothyroxine Sodium 50 MCG TABLET PO (05:41)
[2024-03-06 06:25] LABS: Hematocrit 32.2 % (37.0-47.0); Hemoglobin 10.6 g/dl (12.0-16.0); Mean Corpuscular HGB Conc 32.9 g/dl (31.0-35.0); Mean Corpuscular Hemoglobin 30.5 pg (27.0-33.0); Mean Corpuscular Volume 92.5 fL (80.0-98.0); Mean Platelet Volume 11.4 fL (9.4-12.3); Red Blood Count 3.48 X10*6/uL (4.20-5.50); Red Cell Distribution Width 20.9 % (11.0-16.0); White Blood Count 11.1 X10*3/uL (4.8-10.8)
[2024-03-06 06:40] LABS: Alanine Aminotransferase 29 U/L (0-31); Alkaline Phosphatase 142 U/L (39-117); Anion Gap 15 (12-20); Aspartate Amino Transferase 33 U/L (5-31); Bilirubin Direct 3.2 mg/dL (0.0-0.5); Bilirubin Total 6.2 mg/dL (0.0-1.0); Blood Urea Nitrogen 42 mg/dL (9-16); Calcium 8.8 mg/dL (8.4-10.2); Carbon Dioxide 22 mmol/L (22-29); Chloride 104 mmol/L (96-108); Creatinine Clr Calc Pharmacy 46.4; Estimated Glomerular Filt Rate 35; Glucose Fasting 319 mg/dL (60-99); Magnesium 1.5 mg/dL (1.6-2.6); Potassium 3.8 mmol/L (3.3-5.1); Sodium 137 mmol/L (135-145)
[2024-03-06 06:41] LABS: Platelet Count 99 X10*3/uL (160-400)
[2024-03-06 08:07] LABS: Glucose, Whole Blood 258 mg/dL (60-115)
[2024-03-06] MEDS: Fluticasone/Vilanterol 200/25 BLST.W.DEV 1 PUFF INHALE (08:22)
[2024-03-06] MEDS: Albuterol/Iprat 2.5/0.5MG 3 ML AMPUL.NEB INHALE ×2 (08:23→14:36)
[2024-03-06] MEDS: dilTIAZem HCL CD 120 MG CAP.ER.DEG PO (08:25)
[2024-03-06] MEDS: Folic Acid 1 MG TABLET PO (08:25)
[2024-03-06] MEDS: rifAXIMin 550 MG TABLET PO ×2 (08:25→20:49)
[2024-03-06] MEDS: Apixaban 5 MG TABLET PO ×2 (08:26→20:36)
[2024-03-06] MEDS: Lactulose 20 GM/30 ML SOLUTION 30 GM PO ×2 (08:26→20:36)
[2024-03-06] MEDS: Furosemide 40 MG/4 ML VIAL IVPUSH ×2 (08:26→17:08)
[2024-03-06] MEDS: Escitalopram Oxalate 10 MG TABLET PO (08:26)
[2024-03-06] MEDS: Ferrous Sulfate 324 MG TABLET.DR PO (08:26)
[2024-03-06] MEDS: Insulin Lispro 100 UNIT/ML 3 ML VIAL SUBCUT ×4 (08:27→20:50)
[2024-03-06] MEDS: Insulin Glargine,Hum.rec.anlog 100 UNIT/ML 10 ML VIAL 10 UNIT SUBCUT ×2 (08:27→20:36)
[2024-03-06] MEDS: 0.9 % Sodium Chloride Flush 3 ML SYRINGE IVFLUSH ×3 (08:27→20:53)
[2024-03-06] MEDS: Nystatin Powder 15 GM BOTTLE 1 APPL TOPICAL ×3 (08:28→21:04)
[2024-03-06 11:22] LABS: Glucose, Whole Blood 285 mg/dL (60-115)
--- NOTE | 2024-03-06 11:28 | HO.PM.IMPN ---
Subjective Subjective Date of Service: 03/06/24 Interval History: insomnia Physical Exam Vital Signs: Vital Signs: Last Vital Signs Temp 98.6 F 03/06/24 07:23 Pulse 80 03/06/24 08:25 Resp 20 03/06/24 08:23 BP 176/73 H 03/06/24 08:26 Pulse Ox 97 03/06/24 07:23 O2 Del Method Room Air 03/06/24 07:23 O2 Flow Rate 1 02/27/24 20:00 Oxygen Flow Rate 2 02/21/24 12:42 BMI result Body Mass Index 50.7 Const: General: no acute distress Neck: Neck: Yes supple Resp: Auscultation: diminished lung sounds Cardio: Rate: regular rate GI: Palpation (GI): Soft to palpation Neuro: General: moves all extremities Objective Data Active Medications Acetaminophen (Acetaminophen 325 Mg Tablet) 650 mg PO Q6H PRN PRN Reason: Headache Last Admin: 03/04/24 21:21 Dose: 650 mg Documented By: VINCENT Acetaminophen (Acetaminophen Supp 650 Mg Supp.Rect) 650 mg [place] Q6H PRN PRN Reason: Fever Albuterol/Ipratropium (Albuterol/Iprat 2.5/0.5mg 3 Ml Ampul.Neb) 3 ml INHALE RQ4H WHILE AWAKE PRN PRN Reason: sob Last Admin: 03/06/24 08:23 Dose: 3 ml Documented By: EVA Apixaban (Apixaban 5 Mg Tablet) 5 mg PO BID [facility] Last Admin: 03/06/24 08:26 Dose: 5 mg Documented By: JANE Calcium Carbonate (Calcium Carbonate 750 Mg Tab.Chew) 750 mg PO Q6H PRN PRN Reason: Heartburn Diltiazem HCl (Diltiazem Hcl Cd 120 Mg Cap.Er.Deg) 120 mg PO DAILY [facility]; Protocol Last Admin: 03/06/24 08:25 Dose: 120 mg Documented By: JANE Escitalopram Oxalate (Escitalopram Oxalate 10 Mg Tablet) 10 mg PO DAILY [facility] Last Admin: 03/06/24 08:26 Dose: 10 mg Documented By: JANE Ferrous Sulfate (Ferrous Sulfate 324 Mg Tablet.Dr) 324 mg PO DAILY [facility] Last Admin: 03/06/24 08:26 Dose: 324 mg Documented By: JANE Fluticasone/Vilanterol (Fluticasone/Vilanterol 200/25 Blst.W.Dev) 1 puff INHALE DAILY [facility] Last Admin: 03/06/24 08:22 Dose: 1 puff Documented By: EVA Folic Acid (Folic Acid 1 Mg Tablet) 1 mg PO DAILY [facility] Last Admin: 03/06/24 08:25 Dose: 1 mg Documented By: JANE Furosemide (Furosemide 40 Mg/4 Ml Vial) 40 mg IVPUSH BID@0900,1800 [facility]; Protocol Last Admin: 03/06/24 08:26 Dose: 40 mg Documented By: JANE Glucose (Glucose Gel 15 Gm Gel..Gram.) 15 gm PO Q15M PRN; Protocol PRN Reason: per Hypoglycemia Standing Ord. Dextrose (D10) 250 mls @ 750 mls/hr IV Q15M PRN; Protocol PRN Reason: per Hypoglycemia Standing Ord. Magnesium Sulfate (Magnesium Sulfate/H2o) 2 gm in 50 mls @ 25 mls/hr IV ONCE ONE Stop: 03/06/24 13:26 Insulin Glargine (Insulin Glargine,Hum.Rec.Anlog 100 Unit/Ml 10 Ml Vial) 10 unit SUBCUT BID [facility] Last Admin: 03/06/24 08:27 Dose: 10 unit Documented By: AJNE Insulin Human Lispro (Insulin Lispro 100 Unit/Ml 3 Ml Vial) 0 unit SUBCUT QIDACHS [facility]; Protocol Last Admin: 03/06/24 08:27 Dose: 8 unit Documented By: JANE Lactulose (Lactulose 20 Gm/30 Ml Solution) 30 gm PO BID [facility] Last Admin: 03/06/24 08:26 Dose: 30 gm Documented By: JANE Levothyroxine Sodium (Levothyroxine Sodium 50 Mcg Tablet) 50 mcg PO DAILY@0600 [facility] Last Admin: 03/06/24 05:41 Dose: 50 mcg Documented By: JOSEPH Magnesium Hydroxide (Milk Of Magnesia 30 Ml Oral.Susp) 30 ml PO DAILY PRN PRN Reason: Constipation [facility] ([facility] 400 Mg [facility]t) [facility] Melatonin (Melatonin 3 Mg Tablet) 6 mg PO BEDTIME PRN PRN Reason: Insomnia Last Admin: 02/29/24 20:56 Dose: 6 mg Documented By: ALEX Metolazone (Metolazone 5 Mg Tablet) 5 mg PO ONCE ONE Stop: 03/06/24 17:28 Montelukast Sodium (Montelukast Sodium 10 Mg Tablet) 10 mg PO BEDTIME [facility] Last Admin: 03/05/24 22:20 Dose: 10 mg Documented By: SOBIA Nystatin (Nystatin Powder 15 Gm Bottle) 1 appl TOPICAL TID [facility]; Protocol Last Admin: 03/06/24 08:28 Dose: 1 appl Documented By: JANE Omeprazole (Omeprazole 20 Mg Capsule.Dr) 20 mg PO BID@0630,1630 [facility] Last Admin: 03/06/24 05:41 Dose: 20 mg Documented By: JOSEPH Polyethylene Glycol (Polyethylene Glycol 3350 17 Gm Powd.Pack) 17 gm PO DAILY PRN PRN Reason: Constipation Rifaximin (Rifaximin 550 Mg Tablet) 550 mg PO BID [facility] Last Admin: 03/06/24 08:25 Dose: 550 mg Documented By: JANE Sodium Chloride (0.9 % Sodium Chloride Flush 3 Ml Syringe) 3 ml IVFLUSH QSHIFT [facility] Last Admin: 03/06/24 08:27 Dose: 3 ml Documented By: JANE Labs 03/06/24 06:06 03/06/24 06:06 Labs: Laboratory Results - last 24 hr 03/05/24 03/05/24 03/05/24 10:33 16:30 21:24 MCV MCH MCHC RDW Plt Count MPV Absolute Nucleated RBC Nucleated RBC % (auto) Anion Gap Estim Creat Clear Calc Estimated GFR POC Glucose 250 H 346 H 368 H* Fasting Glucose Calcium Magnesium Total Bilirubin Direct Bilirubin AST ALT Alkaline Phosphatase Total Protein Albumin 03/06/24 03/06/24 03/06/24 06:06 07:52 11:06 MCV 92.5 MCH 30.5 MCHC 32.9 RDW 20.9 H Plt Count 99 L MPV 11.4 Absolute Nucleated RBC 0.000 Nucleated RBC % (auto) 0.0 Anion Gap 15 Estim Creat Clear Calc 46.4 Estimated GFR 35 POC Glucose 258 H 285 H Fasting Glucose 319 H Calcium 8.8 Magnesium 1.5 L Total Bilirubin 6.2 H Direct Bilirubin 3.2 H AST 33 H ALT 29 Alkaline Phosphatase 142 H Total Protein 6.0 L Albumin 3.0 L Assessment and Plan (1) Increased ammonia level: Status: Acute (2) Pneumonia: Status: Acute Assessment and Plan: 73F PMH significant for?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 due to altered mental status. Recently admitted 02/10-02/16 for YORDAN complicated by acute hyponatremia and also noted to have new onset atrial fibrillation with RVR. admitted for further management of acute hepatic encephalopathy and multifocal pneumonia with sepsis. acute toxic metabolic encephalopathy related to hepatic encephalopathy due to Grimes cirrhosis improved mental status NG tube and rectal tube removed On NDD2 solids and thin liquids Continue lactulose and rifaximin report of asymmetric pupils appears symmetric on exam, no focal deficits, cth negative Sepsis due to acute multifocal pneumonia Completed 7 days of IV antibiotics Question coffee-ground emesis Likely due to irritation from NG tube Resolved Continue p.o. PPI paroxysmal atrial fibrillation with RVR Continue diltiazem, Eliquis acute hypokalemia Replace, monitor Grimes cirrhosis with anasarca ascitic fluid tap- 0.45 liter fluid removed fluid analysis less likely sbp, fluid culture-neg anasarca improved with diuresis with albumin continue iv lasix 40mg bid, will add one dose 5mg zarolxyn today portal vein patent on us given vit k for increasing inr, improved chronic thrombocytopenia-related to cirrhosis asthma/COPD overlap continue home inhalers, albuterol p.r.n. insulin-dependent type 2 diabetes with hyperglycemia history of hyperglycemia that is difficult to control control Continue basal bolus insulin hypothyroidism continue levothyroxine Morbid obesity Weight loss recommended DVT prophylaxis-Eliquis Full code reason for continued hospitalization: iv diuresis Quality Stroke Does the patient have a stroke diagnosis?: No VTE Prior VTE?: No VTE Risk Level:: Medical - moderate - high VTE Device Contraindication: Treatment Not Indicated VTE Drug Contraindication: N/A - Med Ordered
[2024-03-06] MEDS: Magnesium Sulfate/H2O 2 GM/50 ML PIGGYBACK IV (11:44)
--- NOTE | 2024-03-06 13:30 | MHC.SL.SWA ---
Risk of Aspiration Due to: Lethargy Dysphasia Diet Status: NO CHANGE Liquid Consistency and Strategies for Safe Swallow: Liquid Intake Recommendation: Thin Liquid Intake Strategies: Small Sips Solid Food Consistency: Dietary Recommendations: Grnd/Mech Altered (NDD2) Oral Medication Intake: Whole with Puree Please contact the pharmacy regarding appropriate crushable or liquid drug formulations that are available whenever modified delivery is recommended. Compensatory Strategies and Precautions to be Taken for Safe Swallow: Sitting Upright (90 deg) Small Bites and Sips Alternate Liquids/Solids Rate of Ingestion Change Oral Check Supervision While Eating and Drinking for Safe Swallow: Total Assistance (1:1) Foods to Avoid: Swallowing Recommended Treatments: Compens. Strategy Educat. Recommendation for Speech: Inpatient Speech Therapy Comment:Recommend patient continue with GROUND/MECH ALTERED solids (NDD2), THIN liquids, and pills whole in puree. Post Tensioning Ironworker Helper Clinican/Clinical Fellow: No Supervisory Statement: I have reviewed and agree with the student/clinical fellow's documentation: N/A Speech Language Pathologist: Jelena Ricks M.A., CCC-DIRECTOR GROUP SALES
--- NOTE | 2024-03-06 15:48 | MHC.CM.PN ---
EMR reviewed and per MD rounds, pt is not medically cleared for discharge due to ongoing need for IV diuresis.
[2024-03-06] MEDS: methylPREDNISolone Sod Succ 40 MG/ML VIAL IVPUSH (16:08)
[2024-03-06] MEDS: Magnesium Oxide 400 MG TABLET PO (16:09)
[2024-03-06] MEDS: Metoprolol Tartrate 5 MG/5 ML VIAL IVPUSH (16:09)
[2024-03-06 16:53] LABS: Glucose, Whole Blood 296 mg/dL (60-115)
[2024-03-06] MEDS: metOLazone 2.5 MG TABLET 5 MG PO (17:08)
[2024-03-06] MEDS: Montelukast Sodium 10 MG TABLET PO (20:36)
[2024-03-06 20:40] LABS: Glucose, Whole Blood 261 mg/dL (60-115)
[2024-03-06 21:53] LABS: Glucose, Whole Blood 287 mg/dL (60-115)
[2024-03-07] VITALS (8 sets, daily range): BP systolic 105–146; BP diastolic 58–66; PULSE 83–118; RESP 16–20; TEMP 36–36.3; O2SAT 95–100; BMI 51.0
[2024-03-07] MEDS: Omeprazole 20 MG CAPSULE.DR PO ×2 (05:44→16:39)
[2024-03-07] MEDS: Levothyroxine Sodium 50 MCG TABLET PO (05:45)
[2024-03-07 07:02] LABS: Glucose, Whole Blood 270 mg/dL (60-115)
[2024-03-07] MEDS: Lactulose 20 GM/30 ML SOLUTION 30 GM PO ×2 (07:36→22:22)
[2024-03-07] MEDS: Furosemide 40 MG/4 ML VIAL IVPUSH ×2 (07:36→16:40)
[2024-03-07] MEDS: Magnesium Oxide 400 MG TABLET PO ×2 (07:36→16:39)
[2024-03-07] MEDS: dilTIAZem HCL CD 120 MG CAP.ER.DEG PO (07:36)
[2024-03-07] MEDS: Folic Acid 1 MG TABLET PO (07:37)
[2024-03-07] MEDS: Escitalopram Oxalate 10 MG TABLET PO (07:37)
[2024-03-07] MEDS: rifAXIMin 550 MG TABLET PO ×2 (07:37→22:21)
[2024-03-07] MEDS: 0.9 % Sodium Chloride Flush 3 ML SYRINGE IVFLUSH ×3 (07:37→22:30)
[2024-03-07] MEDS: Insulin Glargine,Hum.rec.anlog 100 UNIT/ML 10 ML VIAL 10 UNIT SUBCUT ×2 (07:37→22:19)
[2024-03-07] MEDS: Ferrous Sulfate 324 MG TABLET.DR PO (07:37)
[2024-03-07] MEDS: Insulin Lispro 100 UNIT/ML 3 ML VIAL SUBCUT ×4 (07:37→22:18)
[2024-03-07] MEDS: Nystatin Powder 15 GM BOTTLE 1 APPL TOPICAL ×2 (07:38→16:40)
[2024-03-07] MEDS: Apixaban 5 MG TABLET PO ×2 (07:39→22:22)
[2024-03-07] MEDS: Fluticasone/Vilanterol 200/25 BLST.W.DEV 1 PUFF INHALE (08:38)
--- NOTE | 2024-03-07 09:44 | HO.PM.IMPN ---
Subjective Subjective Date of Service: 03/07/24 Interval History: feels about the same Physical Exam Vital Signs: Vital Signs: Last Vital Signs Temp 97.0 F 03/07/24 07:31 Pulse 83 03/07/24 08:39 Resp 18 03/07/24 08:39 BP 146/61 H 03/07/24 07:36 Pulse Ox 97 03/07/24 07:31 O2 Del Method Room Air 03/07/24 07:31 O2 Flow Rate 1 02/27/24 20:00 Oxygen Flow Rate 2 02/21/24 12:42 BMI result Body Mass Index 51.0 Const: General: no acute distress Neck: Neck: Yes supple Resp: Auscultation: diminished lung sounds Cardio: Rate: regular rate GI: Palpation (GI): Soft to palpation Neuro: General: moves all extremities Objective Data Active Medications Acetaminophen (Acetaminophen 325 Mg Tablet) 650 mg PO Q6H PRN PRN Reason: Headache Last Admin: 03/04/24 21:21 Dose: 650 mg Documented By: VINCENT Acetaminophen (Acetaminophen Supp 650 Mg Supp.Rect) 650 mg [place] Q6H PRN PRN Reason: Fever Albuterol/Ipratropium (Albuterol/Iprat 2.5/0.5mg 3 Ml Ampul.Neb) 3 ml INHALE RQ4H WHILE AWAKE PRN PRN Reason: sob Last Admin: 03/06/24 14:36 Dose: 3 ml Documented By: EVA Apixaban (Apixaban 5 Mg Tablet) 5 mg PO BID [facility] Last Admin: 03/07/24 07:39 Dose: 5 mg Documented By: JANE Calcium Carbonate (Calcium Carbonate 750 Mg Tab.Chew) 750 mg PO Q6H PRN PRN Reason: Heartburn Diltiazem HCl (Diltiazem Hcl Cd 120 Mg Cap.Er.Deg) 120 mg PO DAILY [facility]; Protocol Last Admin: 03/07/24 07:36 Dose: 120 mg Documented By: JANE Escitalopram Oxalate (Escitalopram Oxalate 10 Mg Tablet) 10 mg PO DAILY [facility] Last Admin: 03/07/24 07:37 Dose: 10 mg Documented By: JANE Ferrous Sulfate (Ferrous Sulfate 324 Mg Tablet.Dr) 324 mg PO DAILY [facility] Last Admin: 03/07/24 07:37 Dose: 324 mg Documented By: JANE Fluticasone/Vilanterol (Fluticasone/Vilanterol 200/25 Blst.W.Dev) 1 puff INHALE DAILY [facility] Last Admin: 03/07/24 08:38 Dose: 1 puff Documented By: JAMILA Folic Acid (Folic Acid 1 Mg Tablet) 1 mg PO DAILY [facility] Last Admin: 03/07/24 07:37 Dose: 1 mg Documented By: JANE Furosemide (Furosemide 40 Mg/4 Ml Vial) 40 mg IVPUSH BID@0900,1800 [facility]; Protocol Last Admin: 03/07/24 07:36 Dose: 40 mg Documented By: JANE Glucose (Glucose Gel 15 Gm Gel..Gram.) 15 gm PO Q15M PRN; Protocol PRN Reason: per Hypoglycemia Standing Ord. Dextrose (D10) 250 mls @ 750 mls/hr IV Q15M PRN; Protocol PRN Reason: per Hypoglycemia Standing Ord. Insulin Glargine (Insulin Glargine,Hum.Rec.Anlog 100 Unit/Ml 10 Ml Vial) 10 unit SUBCUT BID [facility] Last Admin: 03/07/24 07:37 Dose: 10 unit Documented By: JANE Insulin Human Lispro (Insulin Lispro 100 Unit/Ml 3 Ml Vial) 0 unit SUBCUT QIDACHS [facility]; Protocol Last Admin: 03/07/24 07:37 Dose: 8 unit Documented By: JANE Lactulose (Lactulose 20 Gm/30 Ml Solution) 30 gm PO BID [facility] Last Admin: 03/07/24 07:36 Dose: 30 gm Documented By: JANE Levothyroxine Sodium (Levothyroxine Sodium 50 Mcg Tablet) 50 mcg PO DAILY@0600 [facility] Last Admin: 03/07/24 05:45 Dose: 50 mcg Documented By: PAIGE Magnesium Hydroxide (Milk Of Magnesia 30 Ml Oral.Susp) 30 ml PO DAILY PRN PRN Reason: Constipation Magn[facility] ([facility] 400 Mg Tablet) [facility] Last Admin: 03/07/24 07:36 Dose: 400 mg Documented By: JANE Melatonin (Melatonin 3 Mg Tablet) 6 mg PO BEDTIME PRN PRN Reason: Insomnia Last Admin: 02/29/24 20:56 Dose: 6 mg Documented By: ALEX Metoprolol Tartrate (Metoprolol Tartrate 5 Mg/5 Ml Vial) 5 mg IVPUSH Q6H PRN; Protocol PRN Reason: hr > 100 Last Admin: 03/06/24 16:09 Dose: 5 mg Documented By: JANE Montelukast Sodium (Montelukast Sodium 10 Mg Tablet) 10 mg PO BEDTIME [facility] Last Admin: 03/06/24 20:36 Dose: 10 mg Documented By: JOSEPH Nystatin (Nystatin Powder 15 Gm Bottle) 1 appl TOPICAL TID [facility]; Protocol Last Admin: 03/07/24 07:38 Dose: 1 appl Documented By: JANE Omeprazole (Omeprazole 20 Mg Capsule.Dr) 20 mg PO BID@0630,1630 [facility] Last Admin: 03/07/24 05:44 Dose: 20 mg Documented By: PAIGE Polyethylene Glycol (Polyethylene Glycol 3350 17 Gm Powd.Pack) 17 gm PO DAILY PRN PRN Reason: Constipation Rifaximin (Rifaximin 550 Mg Tablet) 550 mg PO BID [facility] Last Admin: 03/07/24 07:37 Dose: 550 mg Documented By: JANE Sodium Chloride (0.9 % Sodium Chloride Flush 3 Ml Syringe) 3 ml IVFLUSH QSHIFT [facility] Last Admin: 03/07/24 07:37 Dose: 3 ml Documented By: JANE Labs 03/06/24 06:06 03/06/24 06:06 Labs: Laboratory Results - last 24 hr 03/06/24 03/06/24 03/06/24 11:06 16:47 20:36 POC Glucose 285 H 296 H 261 H 03/06/24 03/07/24 21:48 06:48 POC Glucose 287 H 270 H Assessment and Plan (1) Increased ammonia level: Status: Acute (2) Pneumonia: Status: Acute Assessment and Plan: 73F PMH significant for?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 Recently admitted 02/10-02/16 for YORDAN complicated by acute hyponatremia and also noted to have new onset atrial fibrillation with RVR. admitted for further management of acute hepatic encephalopathy and multifocal pneumonia with sepsis. acute toxic metabolic encephalopathy related to hepatic encephalopathy due to Grimes cirrhosis improved mental status, now alert and oriented but weak NG tube and rectal tube removed On NDD2 solids and thin liquids Continue lactulose and rifaximin report of asymmetric pupils appears symmetric on exam, no focal deficits, cth negative Sepsis due to acute multifocal pneumonia Completed 7 days of IV antibiotics Question coffee-ground emesis Likely due to irritation from NG tube Resolved Continue p.o. PPI paroxysmal atrial fibrillation with RVR Continue diltiazem, Eliquis acute hypokalemia Replace, monitor Grimes cirrhosis with anasarca ascitic fluid tap- 0.45 liter fluid removed fluid analysis less likely sbp, fluid culture-neg anasarca improved with diuresis with albumin continue iv lasix 40mg bid, added one dose 5mg zarolxyn 03/06/24 portal vein patent on us given vit k for increasing inr, improved would keep diuresing until signs of contraction on labs chronic thrombocytopenia-related to cirrhosis asthma/COPD overlap continue home inhalers, albuterol p.r.n. insulin-dependent type 2 diabetes with hyperglycemia history of hyperglycemia that is difficult to control control Continue basal bolus insulin hypothyroidism continue levothyroxine Morbid obesity Weight loss recommended DVT prophylaxis-Eliquis Full code reason for continued hospitalization: iv diuresis, sob, anasarca Quality Stroke Does the patient have a stroke diagnosis?: No VTE Prior VTE?: No VTE Risk Level:: Medical - moderate - high VTE Device Contraindication: Treatment Not Indicated VTE Drug Contraindication: N/A - Med Ordered
[2024-03-07 09:48] LABS: Hematocrit 33.9 % (37.0-47.0); Hemoglobin 11.2 g/dl (12.0-16.0); Mean Corpuscular Hemoglobin 30.5 pg (27.0-33.0); Mean Corpuscular Volume 92.4 fL (80.0-98.0); Mean Platelet Volume 11.2 fL (9.4-12.3); Platelet Count 104 X10*3/uL (160-400); Red Blood Count 3.67 X10*6/uL (4.20-5.50); Red Cell Distribution Width 20.7 % (11.0-16.0)
--- NOTE | 2024-03-07 09:54 | P.PNNP_ITS ---
Subjective Subjective Date of Service: 03/08/24 Interval history: Events noted Physical Exam 2 Vital Signs: Vital Signs: Last Vital Signs Temp 97.0 F 03/07/24 07:31 Pulse 83 03/07/24 08:39 Resp 18 03/07/24 08:39 BP 146/61 H 03/07/24 07:36 Pulse Ox 97 03/07/24 07:31 O2 Del Method Room Air 03/07/24 07:31 O2 Flow Rate 1 02/27/24 20:00 Oxygen Flow Rate 2 02/21/24 12:42 BMI result Body Mass Index 51.0 Awake Not in distress Bilateral rhonchi. Objective Data Labs 03/08/24 06:30 03/08/24 06:30 Labs: Laboratory Results - last 24 hr 03/06/24 03/06/24 03/06/24 11:06 16:47 20:36 WBC RBC Hgb Hct MCV MCH MCHC RDW Plt Count MPV Absolute Nucleated RBC Nucleated RBC % (auto) POC Glucose 285 H 296 H 261 H 03/06/24 03/07/24 03/07/24 21:48 06:48 09:42 WBC 13.0 H RBC 3.67 L Hgb 11.2 L Hct 33.9 L MCV 92.4 MCH 30.5 MCHC 33.0 RDW 20.7 H Plt Count 104 L MPV 11.2 Absolute Nucleated RBC 0.000 Nucleated RBC % (auto) 0.0 POC Glucose 287 H 270 H Microbiology Microbiology Results: Microbiology 02/25/24 10:40 Ascites Fluid Gram Stain - Final 02/25/24 10:40 Ascites Fluid Anaerobic Culture - Final NO GROWTH AFTER 5 DAYS 02/25/24 10:40 Ascites Fluid Body Fluid Culture - Final No growth after 2 days 02/21/24 13:34 Blood - Venous Blood Culture - Final No growth after 5 days. 02/21/24 13:04 Blood - Venous Blood Culture - Final No growth after 5 days. Procedures Date of Service Date of Service: 03/08/24 Assessment & Plan Assessment and plan (1) Hyperkalemia: Status: Acute (2) YORDAN (acute kidney injury): Status: Resolved Plan YORDAN superimposed on CKD due to hypoperfusion. Disproportionate elevation in the BUN is due to steroids. Creatinine is close to base line. Agree with diuresis Hyperkalemia due to the combination of spironolactone setting of renal insufficiency. For now I will hold off on using spironolactone. Hepatic encephalopathy Lactulose to correct hyperammonemia Time Spent With Patient Time: Total time managing care of this patient today ____ minutes. Progress Note: Quality Stroke Does the patient have a stroke diagnosis?: No
[2024-03-07 10:04] LABS: Alanine Aminotransferase 29 U/L (0-31); Albumin Level 3.1 g/dL (3.5-5.0); Alkaline Phosphatase 154 U/L (39-117); Anion Gap 18 (12-20); Aspartate Amino Transferase 31 U/L (5-31); Bilirubin Direct 3.4 mg/dL (0.0-0.5); Blood Urea Nitrogen 49 mg/dL (9-16); Calcium 8.9 mg/dL (8.4-10.2); Carbon Dioxide 21 mmol/L (22-29); Chloride 99 mmol/L (96-108); Creatinine Clr Calc Pharmacy 42.6; Estimated Glomerular Filt Rate 31; Magnesium 1.9 mg/dL (1.6-2.6); Potassium 4.2 mmol/L (3.3-5.1); Sodium 134 mmol/L (135-145); Total Protein 6.3 g/dL (6.5-8.0)
[2024-03-07 10:13] LABS: Glucose Fasting 406 mg/dL (60-99)
[2024-03-07 10:55] LABS: Glucose, Whole Blood 369 mg/dL (60-115)
--- NOTE | 2024-03-07 11:07 | MHC.SL.DTX ---
Dysphagia Diet modifications: Last documented Solid diet consistencies: Grnd/Mech Altered (NDD2) Last documented Liquid consistency: Thin Changes made to current diet?: No: No upgrade recommended at this time Liquid Consistency and Strategies: Liquid Intake Recommendation: Thin Compensatory Strategies for Safe Swallow: Small Sips Compensatory Strategies for Safe Swallow(b): Sitting Upright (90 deg) Small Bites and Sips Alternate Liquids/Solids Rate of Ingestion Change Oral Check Solid Food Consistency: Dietary Recommendations: Grnd/Mech Altered (NDD2) Oral Medication Intake: Whole with Puree Strategies and Precautions to be Taken for Safe Swallow: Sitting Upright (90 deg) Small Bites and Sips Alternate Liquids/Solids Rate of Ingestion Change Oral Check Supervision While Eating and/Drinking: Intermittent Supervision Foods to Avoid: Swallowing Recommended Treatments: Compens. Strategy Educat. Recommendation for Speech: Inpatient Speech Therapy Frequency/Duration: M-F Additional Comments: Per EMR, patient w/ worsening jaundice. Treatment: Pt now on room air, saturating at 98% prior to treatment. She tolerated Thin Liquids (2oz.) with no overt s/s of aspiration. RN notified 2/2 fluid restriction. She was able to feed herself Puree Solids and Advanced/Chopped Solids with no change to O2 saturation and no overt s/s of aspiration. Pt asking when she can leave. Upgrading to NDD3 Chopped/Advanced Solids and will continue to monitor tolerance. House Director Clinican/Clinical Fellow: No Supervisory Statement: I have reviewed and agree with the student/clinical fellow's documentation: N/A Speech Language Pathologist: Nadir Frazier M.A., CCC-CONTAINER FILLER
[2024-03-07 15:57] LABS: Glucose, Whole Blood 369 mg/dL (60-115)
[2024-03-07] MEDS: Insulin Lispro 100 UNIT/ML 3 ML VIAL 10 UNIT SUBCUT (16:39)
[2024-03-07 21:32] LABS: Glucose, Whole Blood 386 mg/dL (60-115)
[2024-03-07] MEDS: Melatonin 3 MG TABLET 6 MG PO (22:20)
[2024-03-07] MEDS: Acetaminophen 325 MG TABLET 650 MG PO (22:21)
[2024-03-07] MEDS: Montelukast Sodium 10 MG TABLET PO (22:21)
[2024-03-07 23:25] LABS: Glucose, Whole Blood 380 mg/dL (60-115)
[2024-03-08] VITALS: BP 132/74; PULSE 101; RESP 20; TEMP 36.3; O2SAT 98
[2024-03-08 04:00] VITALS: BP 120/84; PULSE 102; RESP 20; TEMP 36.1; O2SAT 96
[2024-03-08 06:00] VITALS: BMI 49.4
[2024-03-08] MEDS: Omeprazole 20 MG CAPSULE.DR PO (06:43)
[2024-03-08] MEDS: Levothyroxine Sodium 50 MCG TABLET PO (06:43)
[2024-03-08 06:46] LABS: Hematocrit 31.3 % (37.0-47.0); Hemoglobin 10.4 g/dl (12.0-16.0); Mean Corpuscular HGB Conc 33.2 g/dl (31.0-35.0); Mean Corpuscular Volume 90.2 fL (80.0-98.0); Mean Platelet Volume 12.2 fL (9.4-12.3); Platelet Count 115 X10*3/uL (160-400); Red Blood Count 3.47 X10*6/uL (4.20-5.50); Red Cell Distribution Width 20.4 % (11.0-16.0); White Blood Count 9.8 X10*3/uL (4.8-10.8)
[2024-03-08 07:06] LABS: INTERNATIONAL NORM RATIO 2.5 (0.9-1.1); Prothrombin Time 30.1 SEC (11.1-13.3)
[2024-03-08 07:12] LABS: Alanine Aminotransferase 27 U/L (0-31); Albumin Level 2.7 g/dL (3.5-5.0); Alkaline Phosphatase 144 U/L (39-117); Anion Gap 16 (12-20); Aspartate Amino Transferase 32 U/L (5-31); Bilirubin Direct 2.6 mg/dL (0.0-0.5); Bilirubin Total 4.3 mg/dL (0.0-1.0); Blood Urea Nitrogen 53 mg/dL (9-16); Calcium 8.5 mg/dL (8.4-10.2); Carbon Dioxide 21 mmol/L (22-29); Chloride 99 mmol/L (96-108); Creatinine Clr Calc Pharmacy 39.3; Estimated Glomerular Filt Rate 29; Glucose Fasting 330 mg/dL (60-99); Potassium 3.6 mmol/L (3.3-5.1); Sodium 132 mmol/L (135-145); Total Protein 5.7 g/dL (6.5-8.0)
[2024-03-08 07:16] LABS: Glucose, Whole Blood 295 mg/dL (60-115)
[2024-03-08 07:36] VITALS: BP 145/67; PULSE 97; RESP 20; TEMP 36.4; O2SAT 98
[2024-03-08] MEDS: Lactulose 20 GM/30 ML SOLUTION 30 GM PO (07:54)
[2024-03-08] MEDS: Escitalopram Oxalate 10 MG TABLET PO (07:54)
[2024-03-08] MEDS: Ferrous Sulfate 324 MG TABLET.DR PO (07:54)
[2024-03-08] MEDS: Folic Acid 1 MG TABLET PO (07:54)
[2024-03-08] MEDS: Magnesium Oxide 400 MG TABLET PO (07:54)
[2024-03-08] MEDS: rifAXIMin 550 MG TABLET PO (07:54)
[2024-03-08] MEDS: dilTIAZem HCL CD 120 MG CAP.ER.DEG PO (07:55)
[2024-03-08] MEDS: Furosemide 40 MG/4 ML VIAL IVPUSH (07:55)
[2024-03-08] MEDS: Apixaban 5 MG TABLET PO (07:55)
[2024-03-08] MEDS: Insulin Glargine,Hum.rec.anlog 100 UNIT/ML 10 ML VIAL 10 UNIT SUBCUT (08:01)
[2024-03-08] MEDS: Insulin Lispro 100 UNIT/ML 3 ML VIAL SUBCUT ×2 (08:01→12:17)
[2024-03-08] MEDS: 0.9 % Sodium Chloride Flush 3 ML SYRINGE IVFLUSH (08:02)
[2024-03-08] MEDS: Nystatin Powder 15 GM BOTTLE 1 APPL TOPICAL (08:03)
[2024-03-08] MEDS: Fluticasone/Vilanterol 200/25 BLST.W.DEV 1 PUFF INHALE (09:03)
[2024-03-08 09:05] VITALS: PULSE 101; RESP 20; O2SAT 98
[2024-03-08 10:50] LABS: Glucose, Whole Blood 304 mg/dL (60-115)
--- NOTE | 2024-03-08 10:59 | P.PNNP_ITS ---
Subjective Subjective Date of Service: 03/08/24 Interval history: Events noted Physical Exam 2 Vital Signs: Vital Signs: Last Vital Signs Temp 97.5 F 03/08/24 07:36 Pulse 101 H 03/08/24 09:05 Resp 20 03/08/24 09:05 BP 145/67 H 03/08/24 07:36 Pulse Ox 98 03/08/24 07:36 O2 Del Method Room Air 03/08/24 07:36 O2 Flow Rate 1 02/27/24 20:00 Oxygen Flow Rate 2 02/21/24 12:42 BMI result Body Mass Index 49.4 Const: General: ill appearing Neck: Neck: Yes supple Resp: Auscultation: rhonchi Cardio: Palpation: no palpable S3 Heart sounds: no rubs GI: Palpation (GI): Soft to palpation Auscultation: normal bowel sounds Neuro: Motor exam (neuro): no asterixis Objective Data Labs 03/08/24 06:30 03/08/24 06:30 Labs: Laboratory Results - last 24 hr 03/07/24 03/07/24 03/07/24 15:53 21:03 23:21 WBC RBC Hgb Hct MCV MCH MCHC RDW Plt Count MPV Absolute Nucleated RBC Nucleated RBC % (auto) PT INR Sodium Potassium Chloride Carbon Dioxide Anion Gap BUN Creatinine Estim Creat Clear Calc Estimated GFR POC Glucose 369 H* 386 H* 380 H* Fasting Glucose Calcium Magnesium Total Bilirubin Direct Bilirubin AST ALT Alkaline Phosphatase Total Protein Albumin 03/08/24 03/08/24 03/08/24 06:30 06:57 10:44 WBC 9.8 RBC 3.47 L Hgb 10.4 L Hct 31.3 L MCV 90.2 MCH 30.0 MCHC 33.2 RDW 20.4 H Plt Count 115 L MPV 12.2 Absolute Nucleated RBC 0.000 Nucleated RBC % (auto) 0.0 PT 30.1 H D INR 2.5 H Sodium 132 L Potassium 3.6 Chloride 99 Carbon Dioxide 21 L Anion Gap 16 BUN 53 H Creatinine 1.71 H Estim Creat Clear Calc 39.3 Estimated GFR 29 POC Glucose 295 H 304 H Fasting Glucose 330 H Calcium 8.5 Magnesium 2.0 Total Bilirubin 4.3 H Direct Bilirubin 2.6 H AST 32 H ALT 27 Alkaline Phosphatase 144 H Total Protein 5.7 L Albumin 2.7 L Microbiology Microbiology Results: Microbiology 02/25/24 10:40 Ascites Fluid Gram Stain - Final 02/25/24 10:40 Ascites Fluid Anaerobic Culture - Final NO GROWTH AFTER 5 DAYS 02/25/24 10:40 Ascites Fluid Body Fluid Culture - Final No growth after 2 days 02/21/24 13:34 Blood - Venous Blood Culture - Final No growth after 5 days. 02/21/24 13:04 Blood - Venous Blood Culture - Final No growth after 5 days. Procedures Date of Service Date of Service: 03/08/24 Assessment & Plan Assessment and plan (1) Hyperkalemia: Status: Acute (2) YORDAN (acute kidney injury): Status: Resolved Plan YORDAN superimposed on CKD due to hypoperfusion. Disproportionate elevation in the BUN is due to steroids. Creatinine mildly increased Mild hyponatremia due to the use of metolazone. Administering hypotonic fluids like D 10 could also contribute. Would hold metolazone. Continue with cautious diuresis with loop diuretic like Lasix and watch creatinine Hyperkalemia due to the combination of spironolactone setting of renal insufficiency.-resolved For now I will hold off on using spironolactone. Hepatic encephalopathy Lactulose to correct hyperammonemia Time Spent With Patient Time: Total time managing care of this patient today ____ minutes. Progress Note: Quality Stroke Does the patient have a stroke diagnosis?: No
[2024-03-08 11:10] VITALS: BP 135/65; PULSE 94; RESP 20; TEMP 36.4; O2SAT 96
--- NOTE | 2024-03-08 12:03 | PM.DS ---
DS: Providers Provider Date of Service: 03/08/24 Date of admission: 02/21/24 20:04 Primary care physician: Aydin Leo MD Consults: 02/21/24 20:08 Consult to Nephrology Routine Consulting Provider: [facility] Reason for consultation: hyperkalemia 02/21/24 20:29 Consult to Cardiology Routine Consulting Provider: [facility] Reason for consultation: elevated trops 02/22/24 15:04 Consult to Gastroenterology Routine Consulting Provider: Johnny Yang Reason for consultation: hepatic encephalopathy Has provider been notified: No 02/23/24 15:58 Consult to Infectious Diseases Routine Consulting Provider: [facility] Reason for consultation: sepsis /pneumonia Has provider been notified: No 02/28/24 23:31 Consult to Wound Care Routine Reason for consultation: bleeding periarea DS: Diagnosis Discharge Diagnosis (1) Hyperkalemia: Status: Acute (2) YORDAN (acute kidney injury): Status: Resolved (3) Cirrhosis: Status: Acute (4) CKD stage 3a, GFR 45-59 ml/min: Status: Acute (5) Increased ammonia level: Status: Acute (6) Encephalopathy, hepatic: Status: Acute (7) Pneumonia: Status: Acute (8) Mental status alteration: Status: Acute (9) Hyponatremia: Status: Acute DS: Summary Hospital Course Hospital Course: The patient had prolonged hospital stay. for full details please return back to EMR Admission note HPI 73-year-old female with a PMH significant for?asthma/COPD overlap syndrome not on home O2, hx of PE on Eliquis, paroxysmal atrial fibrillation, insulin-dependent type 2 diabetes, hypothyroidism, GERD, BELTRAN cirrhosis, and mood disorder presented to the ED from [facility] due to altered mental status. Per her niece, who is at bedside and helps to assist with history as patient is obtunded, reports yesterday the patient was conversive and coherent though was complaining of shortness of breath. Per facility report, pt has been receiving lactulose 10 g t.i.d., though reason for administration is p.r.n. constipation. Per nursing facility, pt has been afebrile without hypoxia. No respiratory symptoms reported and no noted aspiration. On arrival, patient noted to be in atrial fibrillation on property assessment monitor and mildly tachycardic in the low 100s. There is no fevers or tachycardia. The patient is obtunded, minimally responsive opening her eyes to tactile stimulus only. She has a leukocytosis of 13.3., platelets 130. INR 1.3. Creatinine consistent with baseline, BUN slightly bumped at 01:05. Sodium 131, potassium 6.0 on admission following 40 mg Lasix and Lokelma, was 6.3 earlier. Hepatic function consistent with baseline. Glucose 198. Lactic acid 1.7. Ammonia 102. Initial troponin 107.3, repeat 99. VBG reassuring without any hypercapnia, but showing a mild metabolic alkalosis with pH 7.46, bicarb 28. Urinalysis unremarkable. Head CT negative for any acute intracranial abnormality which shows moderate microvascular ischemic changes. Chest CT shows multiple new masslike areas of consolidation likely consistent with multifocal pneumonia as well as chronic left-sided pleural effusion with left basilar atelectasis and cirrhotic liver with ascites noted on abdominal CT. There is also constipation and anasarca/ascites noted. EKG shows sinus rhythm with first-degree AV cynthia block, rate 91, no ST/T-wave abnormality. However, again on property assessment monitor, patient is noted to be in atrial fibrillation with mild RVR with rate in the low 100s. ED did discuss case with Nephrology recommending 40 mg IV Lasix, and Lokelma for hyperkalemia. She was also given 5 units regular insulin x2 and calcium gluconate. NG tube placed and given lactulose via NG tube. Hospital course # Acute toxic metabolic encephalopathy secondary to hepatic encephalopathy due to Beltran cirrhosis She was admitted and placed NG tube and rectal tube for Lactulose which were removed after she started having bowel movements and improvement in her mental status. Tolerated NDD2 solids and thin liquids. To continue lactulose and rifaximin (which was started inpatient). # Sepsis due to acute multifocal pneumonia On Admission, blood cultures remained negative. Completed 7 days of IV antibiotics. # Question coffee-ground emesis Likely due to irritation from NG tube with no recurrence of the incident. Resolved. To continue p.o. PPI Omeprazole on discharge. US doppler done showing no evidence of portal vein thrombosis. # paroxysmal atrial fibrillation with RVR Controlled while inpatient. kept on diltiazem, Eliquis. to continue on discharge. # Acute hypokalemia Replaced and monitored # Beltran cirrhosis with anasarca She was treated with ascitic fluid tap- 0.45 liter fluid removed along with IV Lasix with fair response as anasarca improved with diuresis with albumin. She was kept on iv lasix 40mg bid. She wan given vit k for increasing INR which improved then increased again. Likely falsely elevated from Eliquis along with liver disease. Discharge plan Continue Lasix as prescribed Start Spironolactone 25 mg daily Omprazole twice daily Start Rifaximin twice daily, increase Lactulose to 30 mg twice daily with goal of 1-2 bowel movements a day To repeat kidney function as outpatient Follow with PCP as outpatient for further adjustment of Lasix\Spironolactone Time Attestation Discharge Coordination Time (in mins): 42 Quality: Safe Use of Opioids Does Pt have an Active Cancer Diagnosis on the Problem List?: No Quality: Stroke Does the patient have a stroke diagnosis?: No Physical Exam Vital Signs: Vital Signs: Last Vital Signs Temp 97.6 F 03/08/24 11:10 Pulse 94 03/08/24 11:10 Resp 20 03/08/24 11:10 BP 135/65 03/08/24 11:10 Pulse Ox 96 03/08/24 11:10 O2 Del Method Room Air 03/08/24 11:10 O2 Flow Rate 1 02/27/24 20:00 Oxygen Flow Rate 2 02/21/24 12:42 BMI result Body Mass Index 49.4 Const: Other: Constitutional : Awake, interactive, not in distress Neck : Normal inspection, Supple Cardiovascular : irregular irregular , no JVP, +1 bilateral lower extremity edema Respiratory : fair bilateral air entry, no crackles, bilateral wheezing at rest Gastrointestinal: soft, lax, Normal bowel sounds, Non tender Skin : Warm, Dry Neurological : Alert & oriented x3, No focal deficit DS: Data Data Completed and Pending Completed studies during hospitalization [Text1]: Procedures Insertion of Infusion Device into Superior Vena Cava, Percutaneous Approach (06/01/23) Ultrasonography of Superior Vena Cava, Guidance (06/01/23) Labs on day of discharge: Laboratory Results - last 24 hr 03/07/24 03/07/24 03/07/24 15:53 21:03 23:21 WBC RBC Hgb Hct MCV MCH MCHC RDW Plt Count MPV Absolute Nucleated RBC Nucleated RBC % (auto) PT INR Sodium Potassium Chloride Carbon Dioxide Anion Gap BUN Creatinine Estim Creat Clear Calc Estimated GFR POC Glucose 369 H* 386 H* 380 H* Fasting Glucose Calcium Magnesium Total Bilirubin Direct Bilirubin AST ALT Alkaline Phosphatase Total Protein Albumin 03/08/24 03/08/24 03/08/24 06:30 06:57 10:44 WBC 9.8 RBC 3.47 L Hgb 10.4 L Hct 31.3 L MCV 90.2 MCH 30.0 MCHC 33.2 RDW 20.4 H Plt Count 115 L MPV 12.2 Absolute Nucleated RBC 0.000 Nucleated RBC % (auto) 0.0 PT 30.1 H D INR 2.5 H Sodium 132 L Potassium 3.6 Chloride 99 Carbon Dioxide 21 L Anion Gap 16 BUN 53 H Creatinine 1.71 H Estim Creat Clear Calc 39.3 Estimated GFR 29 POC Glucose 295 H 304 H Fasting Glucose 330 H Calcium 8.5 Magnesium 2.0 Total Bilirubin 4.3 H Direct Bilirubin 2.6 H AST 32 H ALT 27 Alkaline Phosphatase 144 H Total Protein 5.7 L Albumin 2.7 L Imaging Chest x-ray: Radiologist's impression: ITS Impressions Head CT 02/21/24 14:04 IMPRESSION: No acute intracranial abnormality. There is moderate microvascular ischemic change. Chest X-Ray 02/21/24 14:12 IMPRESSION: Low lung volumes. It is difficult to exclude a small left lateral lung opacity. The lungs are otherwise clear. Chest CT 02/21/24 17:08 IMPRESSION: 1. Multiple new masslike areas of consolidation are seen in the lungs. These are most likely infectious in etiology consistent with multifocal pneumonia. Follow-up after treatment is recommended to confirm resolution. 2. Chronic left-sided pleural effusion and left basilar atelectasis. 3. Cirrhotic liver with ascites. 4. Other incidental findings as described above. Fleischner guidelines were followed. Abdomen/Pelvis CT 02/21/24 17:09 IMPRESSION: 1. Multiple new masslike areas of consolidation are seen in the lungs. These are most likely infectious in etiology consistent with multifocal pneumonia. Follow-up after treatment is recommended to confirm resolution. 2. Chronic left-sided pleural effusion and left basilar atelectasis. 3. Cirrhotic liver with ascites. 4. Other incidental findings as described above. Fleischner guidelines were followed. Chest X-Ray 02/21/24 19:43 IMPRESSION: The tip of the enteric tube terminates over the stomach. Heart and lungs are stable in appearance. Paracentesis Ultrasound 02/25/24 10:30 IMPRESSION: Ultrasound-guided paracentesis as described above. No immediate complications Abdomen/Pelvis CT 03/01/24 08:50 IMPRESSION: Anasarca. Ascites. Cirrhotic appearing liver. Bibasilar pleural effusions and consolidations as described. There appears to be increasing consolidation in the left lower lung. Fleischner guidelines were followed. Abdomen Ultrasound 03/02/24 17:45 IMPRESSION: 1. Portal vein is patent with hepatopedal flow. 2. Partially imaged ascites. Head CT 03/05/24 21:56 IMPRESSION: No acute intracranial pathology. Discharge Plan Discharge Anticipated Discharge Date/Time: 03/08/24 11:52 Patient Disposition: [facility] Discharge Diagnosis: Hepatic encephalopathy Sepsis 2/2 Pneumonia Anasarca Referrals: Aydin Leo MD [Primary Care Provider] - 03/03/24 10:20 am (You have a follow up appointment scheduled. If you can not make this appointment please call office to reschedule ) Discharge Medications: New Xifaxan 550 mg Tablet 550 mg PO BID Qty: 60 0RF magnesium oxide 400 mg (241.3 mg magnesium) Tablet 400 mg PO DAILY Qty: 90 0RF omeprazole 20 mg Capsule,Delayed Release(Dr/Ec) 20 mg PO BID@0630,1630 Qty: 60 0RF nystatin 100,000 unit/gram Powder 1 appl topical TID Qty: 60 1RF Protocol: Apply to: Apply to: rash spironolactone 25 mg tablet 25 mg PO DAILY Qty: 90 0RF furosemide 40 mg tablet 40 mg PO DAILY Qty: 90 0RF Continued levothyroxine 50 mcg tablet 50 mcg PO DAILY@0600 montelukast 10 mg tablet 10 mg PO BEDTIME Eliquis 5 mg tablet 5 mg PO BID albuterol sulfate 90 mcg/actuation HFA aerosol inhaler 2 puff INHALATION Q4H PRN (Reason: Shortness Of Breath Or Wheezing) citalopram 20 mg tablet 20 mg PO DAILY calcium carbonate-vitamin D3 600 mg-5 mcg (200 unit) Tablet 1 tab PO DAILY ferrous sulfate 325 mg (65 mg iron) Tablet 325 mg PO DAILY fluticasone propion-salmeterol [Wixela Inhub] 500-50 mcg/dose blister with device 1 ea inhalation BID Humira 40 mg/0.8 mL syringe kit 40 mg subcut Q14D simvastatin 20 mg tablet 20 mg PO BEDTIME levalbuterol HCl 1.25 mg/3 mL Solution For Nebulization 1.25 mg inhalation Q4H PRN (Reason: Shortness Of Breath/Wheezing) Qty: 0 0RF diltiazem HCl [Cardizem CD] 180 mg Capsule,Extended Release 24hr 360 mg PO DAILY Qty: 0 0RF Protocol: Hold for SBP/HR < HOLD for SBP < : 90 HOLD for HR < : 60 sennosides [senna] 8.6 mg Tablet 17.2 mg PO BID acetaminophen 325 mg Tablet 650 mg PO Q8H PRN (Reason: Pain) ipratropium-albuterol 0.5 mg-3 mg(2.5 mg base)/3 mL Solution For Nebulization 3 ml INHALATION QID polyethylene glycol 3350 [Miralax] 17 gram Powder In Packet 17 g PO DAILY insulin lispro [Humalog KwikPen Insulin] 100 unit/mL Insulin Pen 1 sliding scale dose SUBCUT TIDAC Protocol: Insulin Correction Scale Less than or equal to 110 ---- Give (units): 0 111 to 150 Give (units): 0 151 to 200 Give (units): 0 201 to 250 Give (units): 2 251 to 300 Give (units): 4 301 to 350 Give (units): 6 Greater than 350 Give (units): 8 Call MD if Blood Glucose > : 350 insulin glargine [Basaglar KwikPen U-100 Insulin] 100 unit/mL (3 mL) insulin pen 50 unit subcut BID docusate sodium 100 mg Capsule 100 mg PO BID PRN (Reason: Constipation) folic acid 1 mg tablet 1 mg PO DAILY Changed lactulose [Enulose] 10 gram/15 mL solution 30 g PO BID Qty: 3785 0RF Discontinued prednisone 20 mg tablet 40 mg PO DAILY Qty: 10 0RF Discharge Orders: Discharge Order (Routine); Ordered 03/08/24 Ordered By: Mae Perez Diet: Low salt diet Activity on Discharge: As tolerated Stand Alone Forms: Patient Portal Discharge page Print Language: Sierra Leonean Other Ambulatory Orders: Basic Metabolic Panel (Routine) Timeframe: 1 Week Facility: [facility] - Location: Laboratory Ordered By: Mae Perez Care Plan Goals: Read below Health Concerns: Read below Plan of Treatment: Read below Assessment: You were admitted for encephalopathy related to cirrhosis. responded well to IV and oral treatment. Noticed to be in significant fluid overload that was managed as well. Continue Lasix as prescribed Start Spironolactone 25 mg daily Omprazole twice daily Start Rifaximin twice daily, increase Lactulose to 30 mg twice daily with goal of 1-2 bowel movements a day To repeat kidney function as outpatient Follow with PCP as outpatient for further adjustment of Lasix\Spironolactone
--- NOTE | 2024-03-08 12:56 | MHC.CM.PN ---
Second IMM 03/08/24, pt has been medically cleared for DC, she is returning to [facility] for STR today via BLS.
--- NOTE | 2024-03-08 13:41 | MHC.SL.SWA ---
Risk of Aspiration Due to: Lethargy Dysphasia Diet Status: DOWNGRADE solids Liquid Consistency and Strategies for Safe Swallow: Liquid Intake Recommendation: Thin Liquid Intake Strategies: Small Sips Solid Food Consistency: Dietary Recommendations: Grnd/Mech Altered (NDD2) Additional Modifications to Solid Foods: Extra sauce/gravy Oral Medication Intake: Whole with Liquid Please contact the pharmacy regarding appropriate crushable or liquid drug formulations that are available whenever modified delivery is recommended. Compensatory Strategies and Precautions to be Taken for Safe Swallow: Sitting Upright (90 deg) Small Bites and Sips Alternate Liquids/Solids Rate of Ingestion Change Oral Check Supervision While Eating and Drinking for Safe Swallow: Intermittent Supervision Swallowing Recommended Treatments: Compens. Strategy Educat. Recommendation for Speech: Inpatient Speech Therapy Comment: Recommend DOWNGRADE to GROUND/MECH ALTERED solids (NDD2) d/t severely prolonged mastication w/ moistened chopped solids. Pt spit out bite of food after chewing for a few minutes. Continue w/ THIN LIQUIDS and PILLS WHOLE with LIQUIDS. Assist with TRAY SET-UP and INTERMITTENT SUPERVISION to ensure completion of meals and changes to O2 saturation after meals. Ensure patient is UPRIGHT for all PO. Artists' Model Clinican/Clinical Fellow: No Supervisory Statement: I have reviewed and agree with the student/clinical fellow's documentation: N/A Speech Language Pathologist: Jelena Ricks M.A., CCC-VP PUBLISHER DEVELOPMENT
--- NOTE | 2024-03-08 14:45 | HO.WOUND ---
Wound Consult: Follow up 73yr old? Female admitted to [facility] on 02/21/24 - See progress notes and H&P for detailed history.? Wound consult follow up for perineal area and use of Purewick.? Patient agreeable to assessment and photo documentation.? Her skin was assessed for MASD she remains with scattered areas of partial thickness tissue loss to the bilateral labia contraindicated to Pure wick use at this time. Recommend continued use to barrier cream and frequent incontinence care. Of note the patient remains incontinent of urine and soft stool. when assessed stool was noted between the labia and again contraindicated to Purewick use. No new topical recommendations needed at this time. Recommendations: 1. Turn and Reposition every 2 hours and as needed for patient comfort.? Use pillows or wedges to support off loading positions. 2. Off Load all bony prominences with use of pillows and heel boots if needed.? Apply Preventative foams where needed. ? 3. Monitor for incontinence and moisture control, use barrier creams when needed for prevention and treatment. 4. Provide adequate and supplemental nutrition.? 5. Order or Continue low air loss mattress. 6. When applicable maintain blood glucose levels per Providers order. 7. Abd skin fold - Apply antifungal powder dust off excess to prevent caking. Apply twice daily per provider orders. 8. Groin and perineal and buttocks - Cleanse with PH balanced wipes, pat dry. Apply antifugal powder be sure to dust off excess to prevent caking. Apply twice daily per provider orders. Followed by [facility] daily. Pay and dab after incontience do not scrub off paste. Apply twice daily and PRN. Re-consult wound care Nurse for wound deterioration or wound changes.
== END 2024-03-08 16:45 | disposition skilled nursing facility (03) | DRG 871 ==
LOC: HO.ED 16:09 → HO.EDOVER 20:56 → HO.IMC 21:46
PROVIDERS: Internal Medicine; Physician Assistant Surgical; Admitting Provider Physician Assistant; Emergency Provider Student in an Organized Health Care Education/Training Program; PCP Internal Medicine; Visit Provider Student in an Organized Health Care Education/Training Program
DX: A41.9 Sepsis, unspecified organism (principal); G92.8 Other toxic encephalopathy; J18.9 Pneumonia, unspecified organism; J91.8 Pleural effusion in other conditions classified elsewhere; J98.11 Atelectasis; J44.0 Chronic obstructive pulmonary disease with (acute) lower respiratory infection; E87.1 Hypo-osmolality and hyponatremia; R18.8 Other ascites; Z68.42 Body mass index [BMI] 45.0-49.9, adult; K92.0 Hematemesis; D68.4 Acquired coagulation factor deficiency; E03.9 Hypothyroidism, unspecified; K75.81 Nonalcoholic steatohepatitis (NASH); E66.01 Morbid (severe) obesity due to excess calories; F39 Unspecified mood [affective] disorder; D69.59 Other secondary thrombocytopenia; E11.22 Type 2 diabetes mellitus with diabetic chronic kidney disease; Z66 Do not resuscitate; N18.31 Chronic kidney disease, stage 3a; E87.6 Hypokalemia; E87.5 Hyperkalemia; E11.65 Type 2 diabetes mellitus with hyperglycemia; K76.82 Hepatic encephalopathy; K74.69 Other cirrhosis of liver; I48.0 Paroxysmal atrial fibrillation; Z86.711 Personal history of pulmonary embolism; Z79.4 Long term (current) use of insulin; Z79.01 Long term (current) use of anticoagulants; Z79.890 Hormone replacement therapy; Z79.899 Other long term (current) drug therapy
CPT/HCPCS: 36415; 49083; 70450; 71045; 71250; 74176; 76705; 80048; 80053; 80076; 80202; 81001; 82042; 82140; 82565; 82803; 82947; 83605; 83735; 83880; 84484; 85014; 85018; 85025; 85027; 85049; 85610; 87040; 87070; 87073; 87205; 87449; 87640; 87641; 87899; 89051; 92526; 92610; 93005; 94640; 97110; 97162; 99285; C1729; C9113; J0613; J0692; J1940; J2354; J2919; J3370; J3430; J3475; P9047; Q9957

== ENCOUNTER → 2024-02-21 12:22 | Outpatient (BNV) | payer MEDICARE, SELFPAY | PROVIDERS: Emergency Provider Student in an Organized Health Care Education/Training Program; Visit Provider Internal Medicine Cardiovascular Disease | DX: I44.0 Atrioventricular block, first degree (principal) | CPT/HCPCS: 93010 ==

== ENCOUNTER 2024-02-21 20:04 | Outpatient (BNV) | payer MEDICARE, SELFPAY | END 2024-02-25 10:00 | PROVIDERS: Admitting Provider Physician Assistant; Emergency Provider Student in an Organized Health Care Education/Training Program; PCP Internal Medicine; Visit Provider Physician Assistant Surgical | DX: R18.8 Other ascites (principal) | CPT/HCPCS: 49083 ==

== ENCOUNTER → 2024-02-21 20:04 | Outpatient (BNV) | payer MEDICARE, SELFPAY | PROVIDERS: Admitting Provider Physician Assistant; Emergency Provider Student in an Organized Health Care Education/Training Program; PCP Internal Medicine; Visit Provider Internal Medicine Hypertension Specialist | DX: E87.5 Hyperkalemia (principal); N17.9 Acute kidney failure, unspecified; N18.31 Chronic kidney disease, stage 3a | CPT/HCPCS: 99222; 99232 ==

== ENCOUNTER → 2024-02-21 20:04 | Outpatient (BNV) | payer MEDICARE, SELFPAY | PROVIDERS: Admitting Provider Physician Assistant; Emergency Provider Student in an Organized Health Care Education/Training Program; PCP Internal Medicine; Visit Provider Internal Medicine | DX: R41.82 Altered mental status, unspecified (principal); J18.9 Pneumonia, unspecified organism | CPT/HCPCS: 99222 ==

== ENCOUNTER → 2024-02-21 20:04 | Outpatient (BNV) | payer MEDICARE, SELFPAY | PROVIDERS: Admitting Provider Physician Assistant; Emergency Provider Student in an Organized Health Care Education/Training Program; PCP Internal Medicine; Visit Provider Internal Medicine Critical Care Medicine | DX: I48.0 Paroxysmal atrial fibrillation (principal); K76.82 Hepatic encephalopathy; R79.89 Other specified abnormal findings of blood chemistry; J18.9 Pneumonia, unspecified organism | CPT/HCPCS: 99222 ==

== ENCOUNTER → 2024-02-21 20:04 | Outpatient (BNV) | payer MEDICARE, SELFPAY | PROVIDERS: Admitting Provider Physician Assistant; Emergency Provider Student in an Organized Health Care Education/Training Program; PCP Internal Medicine; Visit Provider Internal Medicine | DX: E87.5 Hyperkalemia (principal); N17.9 Acute kidney failure, unspecified; K74.60 Unspecified cirrhosis of liver; N18.31 Chronic kidney disease, stage 3a; R79.89 Other specified abnormal findings of blood chemistry; K76.82 Hepatic encephalopathy; J18.9 Pneumonia, unspecified organism; R41.82 Altered mental status, unspecified; E87.1 Hypo-osmolality and hyponatremia | CPT/HCPCS: 99223; 99232; 99233; 99239; 99497; 99499 ==

== ENCOUNTER → 2024-02-21 20:04 | Outpatient (BNV) | payer MEDICARE, SELFPAY | PROVIDERS: Admitting Provider Physician Assistant; Emergency Provider Student in an Organized Health Care Education/Training Program; PCP Internal Medicine; Visit Provider Internal Medicine Cardiovascular Disease | DX: R79.89 Other specified abnormal findings of blood chemistry (principal); I48.0 Paroxysmal atrial fibrillation | CPT/HCPCS: 99222 ==

== ENCOUNTER 2024-03-11 22:43 | Inpatient (IN) | payer MEDICARE, SELFPAY ==
--- NOTE | ~2024-03-11 | CT_ITS ---
EXAMINATION: CT CHEST, ABDOMEN AND PELVIS WITHOUT CONTRAST CLINICAL INFORMATION: Pleural effusion, abdominal discomfort COMPARISON: 03/01/2024, 02/21/2024 TECHNIQUE: Multidetector volumetric imaging was performed from the thoracic inlet through the pubic symphysis. Sagittal and coronal reformatted images were obtained on the technologist's workstation. Axial MIP volume rendering provided. This CT examination was performed using dose optimization techniques as appropriate, variously including the following: *Automated exposure control *Adjustment of mA and/or kV according to patient size (this includes techniques or standardized protocols for targeted exams where dose is matched to indication/reason for exam; i.e. extremities or head) *Use of iterative reconstruction technique DLP: 657 mGy-cm FINDINGS: CHEST: Lungs: There are a few scattered patchy regions of opacity in the bilateral upper lobes, overall improved since 02/21/2024 and favoring an infectious/inflammatory etiology. Regions of opacity in the bilateral lower lobes are more suggestive of atelectasis. Mediastinum: The visualized thyroid gland is unremarkable. There are subcentimeter mediastinal lymph nodes within the range of normal variation. Mild cardiomegaly without pericardial effusion. There is atherosclerotic calcification along the aorta. Coronary Artery Calcification: Present Pleura: No pneumothorax. Small pleural effusions, left greater than right. Chest Wall/Axilla: Unremarkable. ABDOMEN/PELVIS: Liver, Gallbladder, Biliary Tree: Liver demonstrates a nodular contour. No appreciable biliary ductal dilatation. Gallbladder is distended without densely calcified gallstones. Pancreas: Atrophic and suboptimally assessed. Spleen: Unremarkable. Adrenal Glands: Unremarkable. Kidneys and Ureters: No hydronephrosis or obstructing calculus bilaterally. Bladder: Mildly distended and grossly unremarkable. Gastrointestinal Tract: Duodenal diverticulum noted. No evidence of bowel obstruction. There is some wall thickening in the ascending colon which is nonspecific and could represent portal colopathy. Moderate volume ascites. No free air is seen. Abdominal Wall: Anasarca is noted. Lymphovascular Structures: Lymph nodes: Normal. Vascular: Moderately extensive vascular calcification. Pelvic Viscera: Patient is status post hysterectomy. OSSEOUS STRUCTURES: Multilevel degenerative changes in the spine. CT/CT abdomen pelvis wo IV con IMPRESSION: 1. Few scattered patchy regions of pulmonary opacity in the bilateral upper lobes, overall improved since 02/21/2024 and favoring an infectious/inflammatory etiology. 2. Small pleural effusions, left greater than right. 3. Moderate volume ascites. Anasarca. 4. Nodular hepatic contour, suggesting cirrhosis. 5. Wall thickening of the ascending colon which is nonspecific and could represent portal colopathy, or alternatively an infectious/inflammatory etiology in the proper clinical setting. 6. Mild cardiomegaly. 7. Coronary artery calcifications. Correlation with cardiac risk factors is recommended.
--- NOTE | ~2024-03-11 | CT_ITS ---
EXAMINATION: CT HEAD WITHOUT CONTRAST CLINICAL INFORMATION: Altered mental status. Headache. COMPARISON: CT head from 03/05/2024. TECHNIQUE: Contiguous axial imaging was performed from the skull base to vertex without intravenous administration of contrast. This CT examination was performed using dose optimization techniques as appropriate, variously including the following: *Automated exposure control. *Adjustment of mA and/or kV according to patient size (this includes techniques or standardized protocols for targeted exams where dose is matched to indication/reason for exam; i.e. extremities or head). *Use of iterative reconstruction technique. 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 No new loss of mccullough-white matter differentiation. No evidence of acute intracranial hemorrhage. Scattered and partially confluent hypoattenuation in the periventricular and deep white matter are consistent with moderate microangiopathy. Proportional prominence of the ventricles and sulcal spaces without evidence of obstructive hydrocephalus. No abnormal mass effect or midline shift. No extra-axial fluid collections. Calcific atherosclerotic disease of the intracranial internal carotid and vertebral arteries. No hyperdense vessel sign. No acute soft tissue or osseous abnormalities. Moderate mucosal thickening of the paranasal sinuses. Moderate rightward nasal septal deviation with spurring. The mastoid air cells and middle ear cavities are clear. Moderate degenerative arthropathy of the temporomandibular joints. Bilateral lens extractions. CT/CT head/brain wo IV con IMPRESSION: 1. 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 2. No evidence of acute intracranial hemorrhage. 3. 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
--- NOTE | ~2024-03-11 | XR_ITS ---
EXAMINATION: XR CHEST CLINICAL INFORMATION: Possible aspiration COMPARISON: 02/21/2024 TECHNIQUE: Frontal view of the chest was obtained. FINDINGS: Large body habitus. Lungs are mildly hypoexpanded. The combination of the patient body habitus and hypoinflation limits evaluation of lower lobes. Nonspecific hazy opacity is present in the posteroinferior right hemithorax. Also, there is opacity in the retrocardiac area of the left lower lobe. Cardiomediastinal silhouette is stable in size and contour. Mitral valve annulus is calcified. The visualized bones are intact. XR/XR chest 1V IMPRESSION: * The evaluation of the lungs is limited by patient body habitus and hypoinflation. * Nonspecific opacities of lower lung zones could reflect presence of atelectasis, small layering effusions and/or lower lobe infiltrates.
--- NOTE | 2024-03-11 22:56 | ECG_ITS ---
Test Reason : AMS Blood Pressure : / mmHG Vent. Rate : 109 BPM Atrial Rate : 000 BPM P-R Int : 000 ms QRS Dur : 096 ms QT Int : 330 ms P-R-T Axes : 000 000 182 degrees QTc Int : 444 ms Atrial fibrillation with rapid ventricular response Septal infarct (cited on or before 20-JAN-2023) Abnormal ECG When compared with ECG of 21-FEB-2024 12:42, Atrial fibrillation has replaced Sinus rhythm Referred By: Mary Mares Electronically Signed By:BYRON FARR
--- NOTE | 2024-03-11 23:00 | ED.AMS ---
HPI - Altered Mental Status General Chief Complaint: Altered Mental Status Stated Complaint: lethargic Time Seen by Provider: 03/11/24 23:00 Source: patient and EMS Mode of arrival: EMS Limitations: altered mental status History of Present Illness ED Provider: Dr. Mary Mares HPI narrative: Patient comes to the emergency room via ambulance from [facility]. According to the staff, patient was discharged on March 08, 3 days ago. Since patient arrived to the [facility] facility, staff reports that patient has been deteriorating. However, approximately 3 hours ago, they noted the patient was obtunded. Of note, on February 20, patient presented to the emergency room obtunded, similar to today. Patient was admitted for hyperkalemia, hyponatremia YORDAN, cirrhosis, hepatic encephalopathy, pneumonia, AMS. -patient's sister who is her healthcare proxy is at bedside. According to the patient's sister, on WednesdayMarch 10, physical therapy was able to work with the patient, patient was able to get up from her chair. The patient's sister states that Wednesday morning (March 11, 2014) when she went to visit her sister at the long term, patient's sister was surprised to find her sleeping. Patient's history try waking up the patient, she would wake up open her eyes, had slightly slurred speech and go back to sleep. According to the patient's sister, patient did not wake up much throughout the day, seems that the slurring kept getting worse throughout the day. Then, patient's sister asked the staff if they were not worried about the patient's current condition, they evaluated the patient, determined that the patient was obtunded, eventually the patient was sent to the ED. Related Data Home Medications ?Medication ?Instructions ?Recorded ?Confirmed albuterol sulfate 90 mcg/actuation 2 puff inhalation Q4H PRN 01/20/23 02/21/24 aerosol inhaler Shortness Of Breath Or Wheezing apixaban 5 mg tablet (Eliquis) 5 mg PO BID 01/20/23 02/21/24 calcium carbonate 600 mg-vitamin 1 tab PO DAILY 01/20/23 02/21/24 D3 5 mcg (200 unit) tablet citalopram 20 mg tablet 20 mg PO DAILY 01/20/23 02/21/24 ferrous sulfate 325 mg (65 mg 325 mg PO DAILY 01/20/23 02/21/24 iron) tablet levothyroxine 50 mcg tablet 50 mcg PO DAILY@0600 01/20/23 02/21/24 montelukast 10 mg tablet 10 mg PO BEDTIME 01/20/23 02/21/24 insulin glargine 100 unit/mL (3 50 unit subcut BID 06/01/23 02/21/24 mL) subcutaneous pen (Basaglar KwikPen U-100 Insulin) docusate sodium 100 mg capsule 100 mg PO BID PRN Constipation 07/20/23 02/21/24 folic acid 1 mg tablet 1 mg PO DAILY 07/20/23 02/21/24 adalimumab 40 mg/0.8 mL 40 mg subcut Q14D 11/22/23 02/21/24 subcutaneous syringe kit (Humira) fluticasone 500 mcg-salmeterol 50 1 ea inhalation BID 11/22/23 02/21/24 mcg/dose blistr powdr for inhalation (Wixela Inhub) simvastatin 20 mg tablet 20 mg PO BEDTIME 02/07/24 02/21/24 acetaminophen 325 mg tablet 650 mg PO Q8H PRN Pain 02/21/24 02/21/24 insulin lispro 100 unit/mL 1 sliding scale dose subcut TIDAC 02/21/24 02/21/24 subcutaneous pen (Humalog KwikPen (U-100) Insulin) ipratropium 0.5 mg-albuterol 3 mg 3 ml inhalation QID 02/21/24 02/21/24 (2.5 mg base)/3 mL nebulization soln polyethylene glycol 3350 17 gram 17 g PO DAILY 02/21/24 02/21/24 oral powder packet (Miralax) sennosides 8.6 mg tablet (senna) 17.2 mg PO BID 02/21/24 02/21/24 Previous Rx's ?Medication ?Instructions ?Recorded diltiazem HCl 180 mg 360 mg PO DAILY #0 caps 02/17/24 capsule,extended release 24 hr (Cardizem CD) levalbuterol HCl 1.25 mg/3 mL 1.25 mg (3 mL) inhalation Q4H PRN 02/17/24 solution for nebulization Shortness Of Breath/Wheezing #0 mL furosemide 40 mg tablet 40 mg PO DAILY #90 tabs 03/08/24 lactulose 10 gram/15 mL oral 30 g (45 mL) PO BID #3,785 mL 03/08/24 solution (Enulose) magnesium oxide 400 mg (241.3 mg 400 mg PO DAILY #90 tabs 03/08/24 magnesium) tablet nystatin 100,000 unit/gram topical 1 appl topical TID #60 grams 03/08/24 powder omeprazole 20 mg capsule,delayed 20 mg PO BID@0630,1630 #60 caps 03/08/24 release rifaximin 550 mg tablet (Xifaxan) 550 mg PO BID #60 tabs 03/08/24 spironolactone 25 mg tablet 25 mg PO DAILY #90 tabs 03/08/24 Allergies Allergy/AdvReac Type Severity Reaction Status Date / Time rosuvastatin [From CRESTOR] Allergy Unknown Unknown Verified 03/11/24 23:43 coconut Allergy Unknown Verified 03/11/24 23:43 empagliflozin Allergy Unknown Verified 03/11/24 23:43 [From Jardiance] piperacillin [From Zosyn] AdvReac Intermediate Vomiting Verified 03/11/24 23:43 tazobactam [From Zosyn] AdvReac Intermediate Vomiting Verified 03/11/24 23:43 Review of Systems Review of Systems: Yes Unobtainable due to mental status PMFSH Past Medical History Medical History Asthma Bacteremia Morbid (severe) obesity due to excess calories Asthma-COPD overlap syndrome Hypothyroidism Pulmonary embolism Depression Hyperlipidemia Rheumatoid arthritis Hypertension Diabetes mellitus, type 2 Social History Social History Household Members: Unknown / Unable to assess Household Members Other:: sister and brother Housing: Unknown / Unable to assess Do you presently have visiting nurse or other home services: No (Meals on Wheels) Unable to assess alcohol history related to: Unable to respond Alcohol intake: never Patient Tobacco Use Status: Never used Tobacco Advance Directives: Yes Advance Directives on File: Yes Advance Directives Date on File: 06/07/23 Do you have a plan to hurt others: No Plan service: No Current occupational status: disabled Physical Exam ED Vital Signs: Vital Signs - 24 hr 03/11/24 23:40 03/12/24 01:38 Temperature 97.7 F 97.9 F Pulse Rate 113 H 93 Respiratory Rate 52 H 15 Blood Pressure 165/73 H 107/45 L Pulse Oximetry 100 98 Oxygen Delivery Method Room Air Room Air BMI result Body Mass Index 41.6 Const Other: Appearance: Somnolent, wakes up to name but falls back asleep. Patient has dried vomit around her face, it is possible that patient may have aspirated Eyes: Pupils equal, round and reactive to light. ENT: Pharynx normal. Neck: Normal inspection. Neck supple. No lymph nodes noted. No crepitus CVS: Irregularly irregular, heart rate between 100 and 130 Pulses normal. Normal S1 and S2 Respiratory: No respiratory distress. Breath sounds normal. No Wheezing. No rales Abdomen: Soft and nontender. No rigidity. No distention. Skin: Skin warm and dry. Diffusely Icteric. Normal skin turgor. Extremities: No Lacerations. No Rash Neuro: Obtunded, unable to participating cranial nerve assessment, GCS of 10 (eye response +3, verbal response +3, motor response + 4). NIH difficult to calculate, patient obtunded Psych: Obtunded NIH Stroke Scale Internal: Initial- Upon Arrival Level of Consciousness: Not Alert; but arousable by minor stimulation Level of Consciousness Questions: Answers one question correctly Level of Consciousness Commands: Performs one task correctly Best Gaze: Normal Visual: No visual loss Facial Palsy: Normal Motor Arm (Right): No effort against gravity Motor Arm (Left): No effort against gravity Motor Leg (Right): No effort against gravity Motor Leg (Left): No effort against gravity Limb Ataxia: Absent Sensory: Normal Best Language: Severe aphasia Dysarthia: Severe dysarthria Extinction and Inattention: No abnormality Score: 19 Course Course Course Narrative: -all of patient's labs and imaging pending. -is very difficult to determine when patient's symptoms actually started. Seems that on March 11, patient already woke up obtunded. Patient's sister states that this time, the patient looks no different than Wednesday morning, her speech did get worse throughout the day -patient is on Eliquis -given all the above-mentioned factors, patient is not a candidate for thrombolytics. -I discuss with the patient's sister that the next step would be to determine if there is a blood clot who a CTA. However, patient's creatinine is a bit elevated. However, the patient's sister states that the patient would not want any aggressive treatment. Even if there is a blood clot, they would opt to not get treatment for a thrombectomy -patient's history agreeable to keep the patient overnight, treat pneumonias, UTI as needed. However, patient does have a MOLST form, per patient's wishes she will remained DNR, DNI, no aggressive treatments including Neurosurgery Medications Administered Discontinued Medications Generic Name Dose Route Start Last Admin Trade Name Elpidio PRN Reason Stop Dose Admin Metoprolol Tartrate 2.5 mg 03/12/24 00:48 03/12/24 00:55 Metoprolol Tartrate 5 Mg/5 Ml Vial IVPUSH 03/12/24 00:49 2.5 mg ONCE ONE Administration Protocol Medical Decision Making Medical Decision Making MDM Narrative: -patient's GCS remains at 10 -I discussed with the patient's sister that it is possible that patient may deteriorate overnight. As mentioned above, patient to remain a DNR DNI -my interpretation of labs: Hematology shows a white blood cell count of 12.8. Likely reactive leukocytosis, rest of hematology at baseline. Blood gases show a pCO2 of 33, sodium is a bit on the lower side, patient has acute on chronic YORDAN, lactic acid 2.5 secondary to chronic cirrhosis, chronically elevated LFTs due to cirrhosis. Urinalysis negative. Urine toxicology negative -my interpretation of CT scan of the chest, patient has a left pleural effusion, possible superimposed pneumonia? , patient empirically given ceftriaxone -I discussed with the patient's sister who has the healthcare proxy that the patient's prognosis is poor. At this time, patient's history is not ready to proceed to hospice/[facility] DAY [facility] but is aware that this is a very realistic possibility , and patient may deteriorate throughout the night. So far, patient has stable vitals -I discussed the patient with Dr. Alvarado, patient will be admitted. CT scan report of the chest abdomen are pending. Regardless of the interpretation, as mentioned above, per patient's and healthcare proxy is wishes, no aggressive treatments should be started. Patient's history would like to limit the treatment to IV fluids and antibiotics and comfort medications. -I discussed the patient with my colleague Dr. Vallejo, CT reports pending Differential Diagnosis Differential Diagnoses: The differential diagnosis associated with the presentation includes (Hepatic encephalopathy, CVA, intracranial bleed, UTI) Admission/Observation Consideration of admission/observation: Escalation of care including admission/observation considered Consult Healthcare Provider Management of the patient was discussed with: Hospitalist Lab Data MDM Lab Attestation statement: I reviewed the patient's lab results. 03/11/24 23:38 03/11/24 23:38 Labs: Lab Results 03/11/24 03/11/24 03/11/24 Range/Units 23:38 23:39 23:42 WBC 12.8 H (4.8-10.8) X10*3/uL RBC 3.61 L (4.20-5.50) X10*6/uL Hgb 10.8 L (12.0-16.0) g/dl Hct 32.1 L (37.0-47.0) % MCV 88.9 (80.0-98.0) fL MCH 29.9 (27.0-33.0) pg MCHC 33.6 (31.0-35.0) g/dl RDW 20.2 H (11.0-16.0) % Plt Count 212 D (160-400) X10*3/uL MPV 11.4 (9.4-12.3) fL Immature Gran % (Auto) 2.1 H (0.0-0.4) % Neut % (Auto) 74.8 H (45-73) % Lymph % (Auto) 6.4 L (20-40) % [place] % (Auto) 13.3 H (2-11) % Eos % (Auto) 3.1 (0-4) % Baso % (Auto) 0.3 (0-2) % Lymph # (Auto) 0.8 L (1.2-4.9) X10*3/uL [place] # (Auto) 1.7 H (0.1-1.2) X10*3/uL Eos # (Auto) 0.4 (0.0-0.4) X10*3/uL Baso # (Auto) 0.0 (0.0-0.2) X10*3/uL Abs Immat Gran (auto) 0.27 H (0.00-0.03) X10*3/uL Absolute Neuts (auto) 9.6 H (2.0-8.3) x10*3/uL Absolute Nucleated RBC 0.000 (0.0-0.012) X10*3/uL Nucleated RBC % (auto) 0.0 (0.0-0.2) /100WBC Smear Tech's Comments VERIFIED PT 29.8 H (11.1-13.3) SEC INR 2.4 H (0.9-1.1) VBG pH 7.50 H (7.32-7.43) VBG pCO2 33 mmHg VBG pO2 54 mmHg VBG HCO3 26 (22-26) mmol/L VBG O2 Saturation 86.0 % VBG Base Excess 3.8 mmol/L Sodium 130 L (135-145) mmol/L Potassium 3.9 (3.3-5.1) mmol/L Chloride 94 L (96-108) mmol/L Carbon Dioxide 25 (22-29) mmol/L Anion Gap 15 (12-20) BUN 81 H (9-16) mg/dL Creatinine 2.43 H (0.5-1.4) mg/dL Estim Creat Clear Calc 28.6 Estimated GFR 20 POC Glucose (60-115) mg/dL Random Glucose 238 H (60-115) mg/dL Lactic Acid 2.5 H* (0.5-2.0) mmol/L Calcium 9.3 (8.4-10.2) mg/dL Magnesium 2.5 (1.6-2.6) mg/dL Total Bilirubin 5.7 H (0.0-1.0) mg/dL Direct Bilirubin 3.5 H (0.0-0.5) mg/dL AST 54 H (5-31) U/L ALT 39 H (0-31) U/L Alkaline Phosphatase 216 H (39-117) U/L Ammonia 50 (13-55) umol/L Troponin I High Sens 33.9 H D (<3.5-17.0) ng/L B-Natriuretic Peptide 152 H (<100) pg/mL Total Protein 6.3 L (6.5-8.0) g/dL Albumin 2.8 L (3.5-5.0) g/dL Lipase 62 (8-78) U/L Urine Color Urine Appearance Urine pH (5.0-9.0) Ur Specific [place] (1.005-1.025) Urine Protein (Neg-Trace) mg/dL Urine Glucose (UA) (Negative) mg/dL Urine Ketones (Negative) mg/dL Urine Blood (Negative) Urine Nitrite (Negative) Ur Leukocyte Esterase (Negative) Urine RBC (0-2) /HPF Urine WBC (0-5) /HPF Ur Squamous Epith Cells (0-2) /HPF Urine Bacteria (None Seen) Hyaline Casts (0-2) /LPF Urine Yeast Urine Opiates Screen (Not Detect) Ur Buprenorphine Scrn (Not Detect) ng/mL Ur Oxycodone Screen (Not Detect) ng/mL Urine Methadone Screen (Not Detect) ng/mL Urine Fentanyl Screen (Not Detect) Ur Barbiturates Screen (Not Detect) Ur Phencyclidine Scrn (Not Detect) Ur Amphetamines Screen (Not Detect) U Benzodiazepines Scrn (Not Detect) Urine Cocaine Screen (Not Detect) U Marijuana (THC) Screen (Not Detect) COVID-19 (KATHERIN) Negative (Negative) COVID-19 Clin Com See Note Influenza Type A (JUNG) Negative (Negative) Influenza Type B (JUNG) Negative (Negative) Influenza A & B Note See Note 03/11/24 03/12/24 Range/Units 23:48 00:20 WBC (4.8-10.8) X10*3/uL RBC (4.20-5.50) X10*6/uL Hgb (12.0-16.0) g/dl Hct (37.0-47.0) % MCV (80.0-98.0) fL MCH (27.0-33.0) pg MCHC (31.0-35.0) g/dl RDW (11.0-16.0) % Plt Count (160-400) X10*3/uL MPV (9.4-12.3) fL Immature Gran % (Auto) (0.0-0.4) % Neut % (Auto) (45-73) % Lymph % (Auto) (20-40) % [place] % (Auto) (2-11) % Eos % (Auto) (0-4) % Baso % (Auto) (0-2) % Lymph # (Auto) (1.2-4.9) X10*3/uL [place] # (Auto) (0.1-1.2) X10*3/uL Eos # (Auto) (0.0-0.4) X10*3/uL Baso # (Auto) (0.0-0.2) X10*3/uL Abs Immat Gran (auto) (0.00-0.03) X10*3/uL Absolute Neuts (auto) (2.0-8.3) x10*3/uL Absolute Nucleated RBC (0.0-0.012) X10*3/uL Nucleated RBC % (auto) (0.0-0.2) /100WBC Smear Tech's Comments PT (11.1-13.3) SEC INR (0.9-1.1) VBG pH (7.32-7.43) VBG pCO2 mmHg VBG pO2 mmHg VBG HCO3 (22-26) mmol/L VBG O2 Saturation % VBG Base Excess mmol/L Sodium (135-145) mmol/L Potassium (3.3-5.1) mmol/L Chloride (96-108) mmol/L Carbon Dioxide (22-29) mmol/L Anion Gap (12-20) BUN (9-16) mg/dL Creatinine (0.5-1.4) mg/dL Estim Creat Clear Calc Estimated GFR POC Glucose 221 H (60-115) mg/dL Random Glucose (60-115) mg/dL Lactic Acid (0.5-2.0) mmol/L Calcium (8.4-10.2) mg/dL Magnesium (1.6-2.6) mg/dL Total Bilirubin (0.0-1.0) mg/dL Direct Bilirubin (0.0-0.5) mg/dL AST (5-31) U/L ALT (0-31) U/L Alkaline Phosphatase (39-117) U/L Ammonia (13-55) umol/L Troponin I High Sens (<3.5-17.0) ng/L B-Natriuretic Peptide (<100) pg/mL Total Protein (6.5-8.0) g/dL Albumin (3.5-5.0) g/dL Lipase (8-78) U/L Urine Color Dark Yellow Urine Appearance Clear Urine pH 5.0 (5.0-9.0) Ur Specific [place] 1.015 (1.005-1.025) Urine Protein Negative (Neg-Trace) mg/dL Urine Glucose (UA) Negative (Negative) mg/dL Urine Ketones Negative (Negative) mg/dL Urine Blood Negative (Negative) Urine Nitrite Negative (Negative) Ur Leukocyte Esterase Trace H (Negative) Urine RBC 0-2 (0-2) /HPF Urine WBC 0-5 (0-5) /HPF Ur Squamous Epith Cells 0-2 (0-2) /HPF Urine Bacteria None Seen (None Seen) Hyaline Casts 0-2 (0-2) /LPF Urine Yeast Present Urine Opiates Screen Not Detected (Not Detect) Ur Buprenorphine Scrn Not Detected (Not Detect) ng/mL Ur Oxycodone Screen Not Detected (Not Detect) ng/mL Urine Methadone Screen Not Detected (Not Detect) ng/mL Urine Fentanyl Screen Not Detected (Not Detect) Ur Barbiturates Screen Not Detected (Not Detect) Ur Phencyclidine Scrn Not Detected (Not Detect) Ur Amphetamines Screen Not Detected (Not Detect) U Benzodiazepines Scrn Not Detected (Not Detect) Urine Cocaine Screen Not Detected (Not Detect) U Marijuana (THC) Screen Not Detected (Not Detect) COVID-19 (KATHERIN) (Negative) COVID-19 Clin Com Influenza Type A (JUNG) (Negative) Influenza Type B (JUNG) (Negative) Influenza A & B Note Independent Interpretation I performed an independent interpretation of an: CT Scan Radiology Impression Discussion of test interpretation with radiology: I have reviewed the radiologist's reading. 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 No new loss of mccullough-white matter differentiation. No evidence of acute intracranial hemorrhage. Scattered and partially confluent hypoattenuation in the periventricular and deep white matter are consistent with moderate microangiopathy. Proportional prominence of the ventricles and sulcal spaces without evidence of obstructive hydrocephalus. No abnormal mass effect or midline shift. No extra-axial fluid collections. Calcific atherosclerotic disease of the intracranial internal carotid and vertebral arteries. No hyperdense vessel sign. No acute soft tissue or osseous abnormalities. Moderate mucosal thickening of the paranasal sinuses. Moderate rightward nasal septal deviation with spurring. The mastoid air cells and middle ear cavities are clear. Moderate degenerative arthropathy of the temporomandibular joints. Bilateral lens extractions. CT/CT head/brain wo IV con IMPRESSION: 1. 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 2. No evidence of acute intracranial hemorrhage. 3. 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 Independent Historian Clinical information obtained from an independent historian. History obtained from or confirmed by: Other (Patient's sister, healthcare proxy) Chronic Conditions Patient?s care impacted by: Other (Cirrhosis) Critical Care Time Critical Care Time Critical Care Time: Yes Total Critical Care Time: 75 Attestation: I have personally provided critical care time. Time includes review of lab data, radiology results, discussion with consultants, and monitoring for potential decompensation. Intervention performed as documented. Discharge Plan Discharge Clinical Impression: Acute CVA (cerebrovascular accident), Altered mental status, Acute hyponatremia, Acute kidney injury superimposed on CKD, Pleural effusion Patient Disposition: Admitted As Inpatient Prescriptions: No Action levothyroxine 50 mcg tablet 50 mcg PO DAILY@0600 montelukast 10 mg tablet 10 mg PO BEDTIME Eliquis 5 mg tablet 5 mg PO BID albuterol sulfate 90 mcg/actuation HFA aerosol inhaler 2 puff INHALATION Q4H PRN (Reason: Shortness Of Breath Or Wheezing) citalopram 20 mg tablet 20 mg PO DAILY calcium carbonate-vitamin D3 600 mg-5 mcg (200 unit) Tablet 1 tab PO DAILY ferrous sulfate 325 mg (65 mg iron) Tablet 325 mg PO DAILY fluticasone propion-salmeterol [Wixela Inhub] 500-50 mcg/dose blister with device 1 ea inhalation BID Humira 40 mg/0.8 mL syringe kit 40 mg subcut Q14D simvastatin 20 mg tablet 20 mg PO BEDTIME levalbuterol HCl 1.25 mg/3 mL Solution For Nebulization 1.25 mg inhalation Q4H PRN (Reason: Shortness Of Breath/Wheezing) Qty: 0 0RF diltiazem HCl [Cardizem CD] 180 mg Capsule,Extended Release 24hr 360 mg PO DAILY Qty: 0 0RF Protocol: Hold for SBP/HR < HOLD for SBP < : 90 HOLD for HR < : 60 sennosides [senna] 8.6 mg Tablet 17.2 mg PO BID acetaminophen 325 mg Tablet 650 mg PO Q8H PRN (Reason: Pain) ipratropium-albuterol 0.5 mg-3 mg(2.5 mg base)/3 mL Solution For Nebulization 3 ml INHALATION QID polyethylene glycol 3350 [Miralax] 17 gram Powder In Packet 17 g PO DAILY insulin lispro [Humalog KwikPen Insulin] 100 unit/mL Insulin Pen 1 sliding scale dose SUBCUT TIDAC Protocol: Insulin Correction Scale Less than or equal to 110 ---- Give (units): 0 111 to 150 Give (units): 0 151 to 200 Give (units): 0 201 to 250 Give (units): 2 251 to 300 Give (units): 4 301 to 350 Give (units): 6 Greater than 350 Give (units): 8 Call MD if Blood Glucose > : 350 Xifaxan 550 mg Tablet 550 mg PO BID Qty: 60 0RF magnesium oxide 400 mg (241.3 mg magnesium) Tablet 400 mg PO DAILY Qty: 90 0RF omeprazole 20 mg Capsule,Delayed Release(Dr/Ec) 20 mg PO BID@0630,1630 Qty: 60 0RF nystatin 100,000 unit/gram Powder 1 appl topical TID Qty: 60 1RF Protocol: Apply to: Apply to: rash spironolactone 25 mg tablet 25 mg PO DAILY Qty: 90 0RF furosemide 40 mg tablet 40 mg PO DAILY Qty: 90 0RF lactulose [Enulose] 10 gram/15 mL solution 30 g PO BID Qty: 3785 0RF insulin glargine [Basaglar KwikPen U-100 Insulin] 100 unit/mL (3 mL) insulin pen 50 unit subcut BID docusate sodium 100 mg Capsule 100 mg PO BID PRN (Reason: Constipation) folic acid 1 mg tablet 1 mg PO DAILY Print Language: Yakut
[2024-03-11 23:40] VITALS: BP 165/73; BP 166/78; PULSE 113; PULSE 142; RESP 52; TEMP 36.5; O2SAT 100; O2SAT 96; BMI 41.6
--- NOTE | 2024-03-11 23:47 | PC.NURSE ---
Addendum entered by Saba Barakat Ai 03/11/24 23:49: Pt able to answer all questions appropriately but is slurring her words Original Note: pt difficult stick tw made two attemps, unable to locate other viable IV site, requesting ultrasound guided IV. Bilateral 20g IVs placed in AC by PIPPA Grey. Labs drawn and set down. PT placed on claims analyst currently in afib rvr.
[2024-03-11 23:48] LABS: Basophils Percent Auto 0.3 % (0-2); Eosinophils Absolute Auto 0.4 X10*3/uL (0.0-0.4); Eosinophils Percent Auto 3.1 % (0-4); Hematocrit 32.1 % (37.0-47.0); Hemoglobin 10.8 g/dl (12.0-16.0); Imm Gran Abs Auto 0.27 X10*3/uL (0.00-0.03); Imm Gran Pct Auto 2.1 % (0.0-0.4); Lymphocytes Absolute Auto 0.8 X10*3/uL (1.2-4.9); Lymphocytes Percent Auto 6.4 % (20-40); MANUAL DIFF FLAG SCAN; Mean Corpuscular HGB Conc 33.6 g/dl (31.0-35.0); Mean Corpuscular Hemoglobin 29.9 pg (27.0-33.0); Mean Corpuscular Volume 88.9 fL (80.0-98.0); Mean Platelet Volume 11.4 fL (9.4-12.3); Monocytes Absolute Auto 1.7 X10*3/uL (0.1-1.2); Monocytes Percent Auto 13.3 % (2-11); Neutrophils Absolute Auto 9.6 x10*3/uL (2.0-8.3); Neutrophils Percent Auto 74.8 % (45-73); Platelet Count 212 X10*3/uL (160-400); Red Blood Count 3.61 X10*6/uL (4.20-5.50); Red Cell Distribution Width 20.2 % (11.0-16.0); SCAN SMEAR FLAG 1; White Blood Count 12.8 X10*3/uL (4.8-10.8)
[2024-03-11 23:50] LABS: Venous Blood Gas Refer to POC result
[2024-03-11 23:51] LABS: VBG Base Excess 3.8 mmol/L; VBG HCO3 26 mmol/L (22-26); VBG pCO2 33 mmHg; VBG pO2 54 mmHg
[2024-03-11 23:53] LABS: INTERNATIONAL NORM RATIO 2.4 (0.9-1.1); Prothrombin Time 29.8 SEC (11.1-13.3)
[2024-03-11 23:53] LABS: Glucose, Whole Blood 221 mg/dL (60-115)
[2024-03-12] VITALS (12 sets, daily range): BP systolic 107–135; BP diastolic 41–77; PULSE 92–125; RESP 15–22; TEMP 36.4–36.6; O2SAT 96–98
[2024-03-12 00:07] LABS: Ammonia 50 umol/L (13-55)
[2024-03-12 00:07] LABS: COVID-19 Test Negative (Negative); IDNOW Serial# 08D9AD1C; IDNOW Serial# 152EDE1D; Influenza A Negative (Negative); Influenza B2 Negative (Negative)
[2024-03-12 00:10] LABS: SLIDE REVIEW VERIFIED
[2024-03-12 00:16] LABS: Alanine Aminotransferase 39 U/L (0-31); Albumin Level 2.8 g/dL (3.5-5.0); Alkaline Phosphatase 216 U/L (39-117); Anion Gap 15 (12-20); Aspartate Amino Transferase 54 U/L (5-31); Bilirubin Direct 3.5 mg/dL (0.0-0.5); Bilirubin Total 5.7 mg/dL (0.0-1.0); Blood Urea Nitrogen 81 mg/dL (9-16); Calcium 9.3 mg/dL (8.4-10.2); Carbon Dioxide 25 mmol/L (22-29); Chloride 94 mmol/L (96-108); Creatinine Clr Calc Pharmacy 28.6; Estimated Glomerular Filt Rate 20; Glucose Random 238 mg/dL (60-115); Lipase 62 U/L (8-78); Magnesium 2.5 mg/dL (1.6-2.6); Potassium 3.9 mmol/L (3.3-5.1); Sodium 130 mmol/L (135-145); Total Protein 6.3 g/dL (6.5-8.0)
[2024-03-12 00:20] LABS: Troponin-I High Sensitivity 33.9 ng/L (<3.5-17.0)
--- NOTE | 2024-03-12 00:20 | PC.NURSE ---
t/w completed straight cath on pt. immediate output 900mls. urine sent down to lab
[2024-03-12 00:23] LABS: B Type Natriuretic Peptide 152 pg/mL (<100)
[2024-03-12 00:24] LABS: Lactic Acid 2.5 mmol/L (0.5-2.0)
[2024-03-12 00:28] LABS: Appearance Urine Clear; Color Urine Dark Yellow; Glucose Urine UA Negative (Negative); Leukocyte Esterase Urine Trace (Negative); Nitrite Urine Negative (Negative); Specific Gravity - Urine 1.015 (1.005-1.025); UMIC TRIGGER UACC YES; Urine Blood Negative (Negative); Urine Ketones Negative (Negative); Urine Protein Negative (Neg-Trace)
[2024-03-12 00:40] LABS: Bacteria Urine None Seen (None Seen); Hyaline Casts Urine 0-2 /LPF (0-2); RBC Urine 0-2 /HPF (0-2); Squamous Epithelial Cell Urine 0-2 /HPF (0-2); WBC Urine 0-5 /HPF (0-5)
[2024-03-12 00:47] LABS: Amphetamine Screen Urine Not Detected (Not Detect); Barbiturates, Urine Not Detected (Not Detect); Benzodiazepines Screen Urine Not Detected (Not Detect); Buprenorphine Scr Not Detected (Not Detect); Cannabinoid Screen Urine Not Detected (Not Detect); Cocaine Screen Urine Not Detected (Not Detect); Fentanyl, urine Not Detected (Not Detect); Methadone Screen, Urine Not Detected (Not Detect); Opiate Screen Urine Not Detected (Not Detect); Oxycodone Screen Urine Not Detected (Not Detect); Phencyclidine Screen Urine Not Detected (Not Detect)
[2024-03-12] MEDS: Metoprolol Tartrate 5 MG/5 ML VIAL 2.5 MG IVPUSH (00:55)
[2024-03-12 01:42] LABS: Reflex Lactate? Lactic Acid Added
[2024-03-12 02:52] LABS: ~Lactic Acid-LAB USE ONLY 2.4 mmol/L (0.5-2.0)
--- NOTE | 2024-03-12 03:12 | PC.NURSE ---
16fr sams cath inserted using sterile technique for skin integrity as ordered by .
[2024-03-12] MEDS: cefTRIAXone sodium 1 GM in 0.9 % Sodium Chloride 50 ML IV ×2 (03:18→22:49)
[2024-03-12 04:21] LABS: Reflex Lactate? 2 Y
[2024-03-12 05:43] LABS: Glucose, Whole Blood 221 mg/dL (60-115)
[2024-03-12 06:04] LABS: ~Lactic Acid-LAB USE ONLY 2.4 mmol/L (0.5-2.0)
--- NOTE | 2024-03-12 06:07 | PC.NURSE ---
notified hospitalist of critical lactic- 2.4
--- NOTE | 2024-03-12 06:29 | PC.NURSE ---
Wound of buttock noted. Informed provider and picture sent via [employer]
--- NOTE | 2024-03-12 06:51 | PC.NURSE ---
pt failed nursing swallow screen at step 4. ordered speech swallow eval and notifed hospitalist
--- NOTE | 2024-03-12 07:33 | PHA.MEDREC ---
Pharmacy Consult ? Medication Reconciliation Pharmacy has completed the medication reconciliation. List from Jon Boateng.
--- NOTE | 2024-03-12 09:58 | PM.IMHP ---
History of Present Illness Date of Service: 03/12/24 Chief Complaint: Altered mentation 73-year-old female with a PMH significant for?asthma/COPD overlap syndrome not on home O2, hx of PE on Eliquis, paroxysmal atrial fibrillation, insulin-dependent type 2 diabetes, hypothyroidism, GERD, GRIMES cirrhosis, and mood disorder presented for worsening mentation and weakness. The patient was unable to participate in history as she was barely waking up and say incomprehensible words. she was doing well at baseline on 03/10 according to her sister but she started to deteriorate by Wednesday and became obtunded so she was sent to ED for further evaluation. In Ed found to have mildly elevated WBCs of 13k, YORDAN with elevated lactic acid. CT chest showing possible pneumonia LLL. Admitted for further evaluation and treatment. Review of Systems Review of Systems: Yes Unobtainable due to mental status [facility] Medical History Asthma Bacteremia Morbid (severe) obesity due to excess calories Asthma-COPD overlap syndrome Hypothyroidism Pulmonary embolism Depression Hyperlipidemia Rheumatoid arthritis Hypertension Diabetes mellitus, type 2 Social History Household Members: Unknown / Unable to assess Household Members Other:: sister and brother Housing: Unknown / Unable to assess Do you presently have visiting nurse or other home services: No (Meals on Wheels) Unable to assess alcohol history related to: Unable to respond Alcohol intake: never Patient Tobacco Use Status: Never used Tobacco Advance Directives: Yes Advance Directives on File: Yes Advance Directives Date on File: 06/07/23 Do you have a plan to hurt others: No Plan Nutrition Risks: Difficulty swallowing, On aspiration precautions and Poor intake 0-25% >4 days service: No Current occupational status: disabled Meds Allergies Allergy/AdvReac Type Severity Reaction Status Date / Time rosuvastatin [From CRESTOR] Allergy Unknown Unknown Verified 03/11/24 23:43 coconut Allergy Unknown Verified 03/11/24 23:43 empagliflozin Allergy Unknown Verified 03/11/24 23:43 [From Jardiance] piperacillin [From Zosyn] AdvReac Intermediate Vomiting Verified 03/11/24 23:43 tazobactam [From Zosyn] AdvReac Intermediate Vomiting Verified 03/11/24 23:43 Active Medications: Current Medications Albuterol Sulfate (Albuterol Sulfate 90 Mcg 8 Gm Inhaler) 2 puff INHALE Q4H PRN PRN Reason: Shortness Of Breath Or Wheezing Albuterol/Ipratropium (Albuterol/Iprat 2.5/0.5mg 3 Ml Ampul.Neb) 3 ml INHALE QID [facility] Apixaban (Apixaban 5 Mg Tablet) 5 mg PO BID [facility] Diltiazem HCl (Diltiazem Hcl Cd 180 Mg Cap.Er.24h) 360 mg PO DAILY [facility]; Protocol Fluticasone/Vilanterol (Fluticasone/Vilanterol 200/25 Blst.W.Dev) 1 puff INHALE RDAILY [facility] Insulin Glargine (Insulin Glargine,Hum.Rec.Anlog 100 Unit/Ml 10 Ml Vial) 20 unit SUBCUT BID [facility] Lactulose (Lactulose 20 Gm/30 Ml Solution) 30 gm PO BID [facility] Levothyroxine Sodium (Levothyroxine Sodium 50 Mcg Tablet) 50 mcg PO DAILY@0600 [facility] Omeprazole (Omeprazole 20 Mg Capsule.Dr) 20 mg PO BID@0630,1630 [facility] Rifaximin (Rifaximin 550 Mg Tablet) 550 mg PO BID [facility] Home Medications ?Medication ?Instructions ?Recorded ?Confirmed ?Last Taken ?Type albuterol sulfate 90 mcg/actuation 2 puff inhalation Q4H PRN 01/20/23 03/12/24 01/19/23 History aerosol inhaler Shortness Of Breath Or Wheezing apixaban 5 mg tablet (Eliquis) 5 mg PO BID 01/20/23 03/12/24 11/22/23 History calcium carbonate 600 mg-vitamin 1 tab PO DAILY 01/20/23 03/12/24 11/22/23 History D3 5 mcg (200 unit) tablet citalopram 20 mg tablet 20 mg PO DAILY 01/20/23 03/12/24 11/22/23 History ferrous sulfate 325 mg (65 mg 325 mg PO DAILY 01/20/23 03/12/24 11/22/23 History iron) tablet levothyroxine 50 mcg tablet 50 mcg PO DAILY@0600 01/20/23 03/12/24 11/22/23 History montelukast 10 mg tablet 10 mg PO BEDTIME 01/20/23 03/12/24 11/21/23 History insulin glargine 100 unit/mL (3 50 unit subcut BID 06/01/23 03/12/24 11/22/23 History mL) subcutaneous pen (Basaglar KwikPen U-100 Insulin) docusate sodium 100 mg capsule 100 mg PO BID PRN Constipation 07/20/23 03/12/24 11/22/23 History folic acid 1 mg tablet 1 mg PO DAILY 07/20/23 03/12/24 11/22/23 History adalimumab 40 mg/0.8 mL 40 mg subcut Q14D 11/22/23 03/12/24 02/18/24 History subcutaneous syringe kit (Humira) fluticasone 500 mcg-salmeterol 50 1 ea inhalation BID 11/22/23 03/12/24 11/22/23 History mcg/dose blistr powdr for inhalation (Wixela Inhub) simvastatin 20 mg tablet 20 mg PO BEDTIME 02/07/24 03/12/24 Unknown History acetaminophen 325 mg tablet 650 mg PO Q8H PRN Pain 02/21/24 03/12/24 Unknown History insulin lispro 100 unit/mL 1 sliding scale dose subcut TIDAC 02/21/24 03/12/24 Unknown History subcutaneous pen (Humalog KwikPen (U-100) Insulin) ipratropium 0.5 mg-albuterol 3 mg 3 ml inhalation QID 02/21/24 03/12/24 Unknown History (2.5 mg base)/3 mL nebulization soln polyethylene glycol 3350 17 gram 17 g PO DAILY 02/21/24 03/12/24 Unknown History oral powder packet (Miralax) sennosides 8.6 mg tablet (senna) 17.2 mg PO BID 02/21/24 03/12/24 Unknown History bisacodyl 10 mg rectal suppository 10 mg TN DAILY PRN Constipation 03/12/24 03/12/24 Unknown History (Dulcolax (bisacodyl)) magnesium hydroxide 400 mg/5 mL 30 ml PO DAILY PRN Constipation 03/12/24 03/12/24 Unknown History oral suspension (Milk of Magnesia) nystatin 100,000 unit/gram topical 1 appl topical BID 03/12/24 03/12/24 Unknown History powder sodium phosphates 19 gram-7 118 ml TN DAILY PRN Constipation 03/12/24 03/12/24 Unknown History gram/118 mL enema (Fleet Enema) Physical Exam Vital Signs and Narrative: Vital Signs: Last Vital Signs Temp 97.6 F 03/12/24 05:21 Pulse 104 H 03/12/24 08:00 Resp 20 03/12/24 08:00 BP 135/65 03/12/24 08:00 Pulse Ox 97 03/12/24 08:00 O2 Del Method Room Air 03/12/24 08:00 BMI result Body Mass Index 41.6 Const: Other: Constitutional : altered, responde to stimuli with words, not in distress Neck : Normal inspection, Supple Cardiovascular : RRR, no JVP, +1 lower extremity edema Respiratory : fair bilateral air entry, LLL crackles Gastrointestinal: soft, lax, Normal bowel sounds, Non tender Skin : Warm, Dry Neurological : obtunded, GCS 10 Results Labs 03/11/24 23:38 03/11/24 23:38 Labs: Laboratory Results - last 24 hr 03/11/24 03/11/24 03/11/24 23:38 23:39 23:42 MCV 88.9 MCH 29.9 MCHC 33.6 RDW 20.2 H Plt Count 212 D MPV 11.4 Immature Gran % (Auto) 2.1 H Neut % (Auto) 74.8 H Lymph % (Auto) 6.4 L [place] % (Auto) 13.3 H Eos % (Auto) 3.1 Baso % (Auto) 0.3 Lymph # (Auto) 0.8 L [place] # (Auto) 1.7 H Eos # (Auto) 0.4 Baso # (Auto) 0.0 Abs Immat Gran (auto) 0.27 H Absolute Neuts (auto) 9.6 H Absolute Nucleated RBC 0.000 Nucleated RBC % (auto) 0.0 Smear Tech's Comments VERIFIED PT 29.8 H INR 2.4 H VBG pH 7.50 H VBG pCO2 33 VBG pO2 54 VBG HCO3 26 VBG O2 Saturation 86.0 VBG Base Excess 3.8 Anion Gap 15 Estim Creat Clear Calc 28.6 Estimated GFR 20 POC Glucose Random Glucose 238 H Lactic Acid 2.5 H* Lactic Acid F/U @ 2Hr Lactic Acid F/U @ 4Hr Calcium 9.3 Magnesium 2.5 Total Bilirubin 5.7 H Direct Bilirubin 3.5 H AST 54 H ALT 39 H Alkaline Phosphatase 216 H Ammonia 50 Troponin I High Sens 33.9 H D B-Natriuretic Peptide 152 H Total Protein 6.3 L Albumin 2.8 L Lipase 62 Urine Color Urine Appearance Urine pH Ur Specific [place] Urine Protein Urine Glucose (UA) Urine Ketones Urine Blood Urine Nitrite Ur Leukocyte Esterase Urine RBC Urine WBC Ur Squamous Epith Cells Urine Bacteria Hyaline Casts Urine Yeast Urine Opiates Screen Ur Buprenorphine Scrn Ur Oxycodone Screen Urine Methadone Screen Urine Fentanyl Screen Ur Barbiturates Screen Ur Phencyclidine Scrn Ur Amphetamines Screen U Benzodiazepines Scrn Urine Cocaine Screen U Marijuana (THC) Screen COVID-19 (KATHERIN) Negative COVID-19 Clin Com See Note Influenza Type A (JUNG) Negative Influenza Type B (JUNG) Negative Influenza A & B Note See Note 03/11/24 03/12/24 03/12/24 23:48 00:20 02:18 MCV MCH MCHC RDW Plt Count MPV Immature Gran % (Auto) Neut % (Auto) Lymph % (Auto) [place] % (Auto) Eos % (Auto) Baso % (Auto) Lymph # (Auto) [place] # (Auto) Eos # (Auto) Baso # (Auto) Abs Immat Gran (auto) Absolute Neuts (auto) Absolute Nucleated RBC Nucleated RBC % (auto) Smear Tech's Comments PT INR VBG pH VBG pCO2 VBG pO2 VBG HCO3 VBG O2 Saturation VBG Base Excess Anion Gap Estim Creat Clear Calc Estimated GFR POC Glucose 221 H Random Glucose Lactic Acid Lactic Acid F/U @ 2Hr 2.4 H* Lactic Acid F/U @ 4Hr Calcium Magnesium Total Bilirubin Direct Bilirubin AST ALT Alkaline Phosphatase Ammonia Troponin I High Sens B-Natriuretic Peptide Total Protein Albumin Lipase Urine Color Dark Yellow Urine Appearance Clear Urine pH 5.0 Ur Specific [place] 1.015 Urine Protein Negative Urine Glucose (UA) Negative Urine Ketones Negative Urine Blood Negative Urine Nitrite Negative Ur Leukocyte Esterase Trace H Urine RBC 0-2 Urine WBC 0-5 Ur Squamous Epith Cells 0-2 Urine Bacteria None Seen Hyaline Casts 0-2 Urine Yeast Present Urine Opiates Screen Not Detected Ur Buprenorphine Scrn Not Detected Ur Oxycodone Screen Not Detected Urine Methadone Screen Not Detected Urine Fentanyl Screen Not Detected Ur Barbiturates Screen Not Detected Ur Phencyclidine Scrn Not Detected Ur Amphetamines Screen Not Detected U Benzodiazepines Scrn Not Detected Urine Cocaine Screen Not Detected U Marijuana (THC) Screen Not Detected COVID-19 (KATHERIN) COVID-19 Clin Com Influenza Type A (JUNG) Influenza Type B (JUNG) Influenza A & B Note 03/12/24 03/12/24 05:36 05:37 MCV MCH MCHC RDW Plt Count MPV Immature Gran % (Auto) Neut % (Auto) Lymph % (Auto) [place] % (Auto) Eos % (Auto) Baso % (Auto) Lymph # (Auto) [place] # (Auto) Eos # (Auto) Baso # (Auto) Abs Immat Gran (auto) Absolute Neuts (auto) Absolute Nucleated RBC Nucleated RBC % (auto) Smear Tech's Comments PT INR VBG pH VBG pCO2 VBG pO2 VBG HCO3 VBG O2 Saturation VBG Base Excess Anion Gap Estim Creat Clear Calc Estimated GFR POC Glucose 221 H Random Glucose Lactic Acid Lactic Acid F/U @ 2Hr Lactic Acid F/U @ 4Hr 2.4 H* Calcium Magnesium Total Bilirubin Direct Bilirubin AST ALT Alkaline Phosphatase Ammonia Troponin I High Sens B-Natriuretic Peptide Total Protein Albumin Lipase Urine Color Urine Appearance Urine pH Ur Specific [place] Urine Protein Urine Glucose (UA) Urine Ketones Urine Blood Urine Nitrite Ur Leukocyte Esterase Urine RBC Urine WBC Ur Squamous Epith Cells Urine Bacteria Hyaline Casts Urine Yeast Urine Opiates Screen Ur Buprenorphine Scrn Ur Oxycodone Screen Urine Methadone Screen Urine Fentanyl Screen Ur Barbiturates Screen Ur Phencyclidine Scrn Ur Amphetamines Screen U Benzodiazepines Scrn Urine Cocaine Screen U Marijuana (THC) Screen COVID-19 (KATHERIN) COVID-19 Clin Com Influenza Type A (UJNG) Influenza Type B (JUNG) Influenza A & B Note Imaging Radiologist's Impressions: Impressions Chest X-Ray 03/11/24 00:01 IMPRESSION: * The evaluation of the lungs is limited by patient body habitus and hypoinflation. * Nonspecific opacities of lower lung zones could reflect presence of atelectasis, small layering effusions and/or lower lobe infiltrates. Head CT 03/12/24 01:25 IMPRESSION: 1. 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 2. No evidence of acute intracranial hemorrhage. 3. 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 Abdomen/Pelvis CT 06/02/24 01:26 IMPRESSION: 1. Few scattered patchy regions of pulmonary opacity in the bilateral upper lobes, overall improved since 02/21/2024 and favoring an infectious/inflammatory etiology. 2. Small pleural effusions, left greater than right. 3. Moderate volume ascites. Anasarca. 4. Nodular hepatic contour, suggesting cirrhosis. 5. Wall thickening of the ascending colon which is nonspecific and could represent portal colopathy, or alternatively an infectious/inflammatory etiology in the proper clinical setting. 6. Mild cardiomegaly. 7. Coronary artery calcifications. Correlation with cardiac risk factors is recommended. Chest CT 03/12/24 01:27 IMPRESSION: 1. Few scattered patchy regions of pulmonary opacity in the bilateral upper lobes, overall improved since 02/21/2024 and favoring an infectious/inflammatory etiology. 2. Small pleural effusions, left greater than right. 3. Moderate volume ascites. Anasarca. 4. Nodular hepatic contour, suggesting cirrhosis. 5. Wall thickening of the ascending colon which is nonspecific and could represent portal colopathy, or alternatively an infectious/inflammatory etiology in the proper clinical setting. 6. Mild cardiomegaly. 7. Coronary artery calcifications. Correlation with cardiac risk factors is recommended. Assessment and Plan (1) Acute kidney injury superimposed on CKD: Status: Acute (2) Cirrhosis: Status: Acute (3) Paroxysmal atrial fibrillation: Status: Acute (4) Colitis: Status: Acute Plan 73-year-old female with a PMH significant for?asthma/COPD overlap syndrome not on home O2, hx of PE on Eliquis, paroxysmal atrial fibrillation, insulin-dependent type 2 diabetes, hypothyroidism, GERD, GRIMES cirrhosis, and mood disorder presented for worsening mentation and weakness. Toxic metabolic encephalopathy 2/2 possible colitis , liver cirrhosis unclear how many BM the patient was having at the facility. Not septic Lactulos enema NPO now CT chest showing interval improvement CT Abd concerning for possible Colitis Treat with IV antibiotics pending blood cultures # Lactic acidosis secondary to liver cirrhosis not sepsis # Acute kidney injury on CKD4 with chronic mild hyponatremia Prerenal Cr 2.4 from 1.7 avoid nephrotoxic IVF replacement follow BMP, I\O # PAF, Continue diltiazem, Eliquis # chronic thrombocytopenia-related to cirrhosis # asthma/COPD overlap, continue home inhalers, albuterol p.r.n. # insulin-dependent type 2 diabetes with hyperglycemia, Continue basal bolus insulin # hypothyroidism, continue levothyroxine DVT prophylaxis-Eliquis The patient will need >2 overnight hospital stay for treatment of Quality Stroke Does the patient have a stroke diagnosis?: No VTE Prior VTE?: No VTE Risk Level:: Medical - moderate - high VTE Device Contraindication: Treatment Not Indicated VTE Drug Contraindication: N/A - Med Ordered
[2024-03-12] MEDS: metroNIDAZOLE/NS 500 MG/100 ML PIGGYBACK 100 MG IV ×2 (10:30→18:06)
[2024-03-12 10:48] LABS: Cancel Lactic Acid Canceled
[2024-03-12 11:29] LABS: Glucose, Whole Blood 218 mg/dL (60-115)
[2024-03-12] MEDS: Insulin Lispro 100 UNIT/ML 3 ML VIAL SUBCUT ×3 (11:37→22:50)
[2024-03-12] MEDS: Metoprolol Tartrate 5 MG/5 ML VIAL IVPUSH (13:09)
--- NOTE | 2024-03-12 13:28 | PC.NURSE ---
Patient transferred to hospital bed, repositioned, bed bath given, allevyn placed on coccyx area. Patient intermittently mumbling words, family at bedside. HR 120's - 130's PRN lopressor given per MAR.
[2024-03-12 15:20] LABS: Glucose, Whole Blood 207 mg/dL (60-115)
[2024-03-12] MEDS: vancomycin/NS 2,000 MG/500 ML PLAST..BAG 250 MG IV (20:02)
[2024-03-12] MEDS: Lactulose 320 GM/480 ML SOLUTION 200 GM PR (20:02)
--- NOTE | 2024-03-12 20:25 | PC.NURSE ---
Patient ordered rectal lactulose, given per DEC, patient tolerated procedure moderately well, large amount of stool evacuated from rectum during instillation. Patient had 1/2 BC + provider Dr. Alvarado made aware, additionally abx ordered and hung per dec. Patient continues to be arousable to name and light shake, in hosptial bed waiting for bed assignment. Family member intermittently at bedside aware of plan of care.
[2024-03-12] MEDS: Albuterol/Iprat 2.5/0.5MG 3 ML AMPUL.NEB INHALE (20:59)
[2024-03-12 21:41] LABS: Glucose, Whole Blood 173 mg/dL (60-115)
[2024-03-13] VITALS (10 sets, daily range): BP systolic 107–161; BP diastolic 65–99; PULSE 64–120; RESP 18–20; TEMP 36.1–36.9; O2SAT 96–100; BMI 13.9; BMI 43.9
[2024-03-13] MEDS: metroNIDAZOLE/NS 500 MG/100 ML PIGGYBACK 100 MG IV ×3 (01:15→17:23)
[2024-03-13] MEDS: Lactulose 320 GM/480 ML SOLUTION 200 GM PR (01:16)
[2024-03-13] MEDS: Lactulose 20 GM/30 ML SOLUTION 200 GM PR ×3 (05:43→17:28)
[2024-03-13 07:23] LABS: Glucose, Whole Blood 129 mg/dL (60-115)
[2024-03-13] MEDS: Albuterol/Iprat 2.5/0.5MG 3 ML AMPUL.NEB INHALE ×4 (07:53→19:50)
[2024-03-13] MEDS: Metoprolol Tartrate 5 MG/5 ML VIAL IVPUSH ×2 (08:47→13:11)
--- NOTE | 2024-03-13 08:52 | MHC.CM.PN ---
Patient is here with AMS; CM left a detailed message for Sister/HCP/Glenys @ [phone], addressing the IMM (original will be mailed certified letter to Glenys and a copy has been placed on the chart). Patient comes to [facility] from [facility], where she was receiving STR. The tentative plan is for Patient to return to [facility] to complete STR; CM has initiated and will follow for dc planning. Prior to SNF, Patient lives with Glenys, used a walker and a w/c and was active with [facility]. PCP is Dr. Dominguez.
--- NOTE | 2024-03-13 09:09 | HO.WOUND ---
Wound Consult: Initial 73yr old? Female admitted to [facility] on 03/12/24 - See progress notes and H&P for detailed history.? Recent admission see chart for details. Wound consult placed for buttock and perineal area.? Patient only mildly interactive with her environment. Provider aware and reports improvement from yesterday. Last admission her skin was assessed for MASD with fungal dermatitis to the pannus and bilateral groin will notify provider I recommend she continue with topical antifungal treatment. Intertrigo is noted to the groin and abdominal fold with partial thickness tissue loss at base of fold - may treat with antifungal powder followed by thin swipe of triad to allow for moist wound healing and comfort. The perineal areas was assessed for MASD, red erythema noted with scattered areas of partial thickness tissue loss, patient currently has F/C in place. She is noted for pitting edema throughout her extremities. Bilateral Heels assessed for redness, they remain blanchable and intact preventative measures ordered and off loaded with pillows. The buttock assess for MASD with pressure injury noted see below for details. Sacrum Etiology: ??Deep Tissue Injury Present on Admission Measurements: 8cm x 2cm x 0.2cm Wound Bed: dark purple nonbalcnahbel tissue with tissue loss noted - in evolution Drainage / Odor: none at the time of my consult Edges: irregular ? Mary wound: ? MASD (Moisture associated Skin Damage ) Full thickness tissue loss with adherent yellow slough - No Induration, Fluctuance or Warmth noted Pain: patient reports pain Goals of Treatment: Triad to allow for autolytic debridement and protect from friction and moisture Off Load Pressure with wedges ? Recommendations: 1. Turn and Reposition every 2 hours and as needed for patient comfort.? Use pillows or wedges to support off loading positions. Wedges provided at bedside and in use. 2. Off Load all bony prominences with use of pillows and heel boots if needed.? Apply Preventative foams where needed. ? 3. Monitor for incontinence and moisture control, use barrier creams when needed for prevention and treatment. 4. Provide adequate and supplemental nutrition.? 5. Order low air loss mattress. 6. When applicable maintain blood glucose levels per Providers order. 7. Abd skin fold - Apply antifungal powder dust off excess to prevent caking. Apply twice daily per provider orders. 8. Groin and perineal and buttocks - Cleanse with PH balanced wipes, pat dry. Apply antifugal powder be sure to dust off excess to prevent caking. Apply twice daily per provider orders. Followed by Triad twice daily. Pay and dab after incontinence do not scrub off paste. Apply twice daily and PRN. Re-consult wound care Nurse for wound deterioration or wound changes.
[2024-03-13] MEDS: Nystatin Powder 15 GM BOTTLE 1 APPL TOPICAL ×2 (10:44→22:54)
[2024-03-13 11:06] LABS: Glucose, Whole Blood 144 mg/dL (60-115)
--- NOTE | 2024-03-13 12:02 | P.PNIM_ITS ---
Subjective Subjective Date of Service: 03/13/24 Interval History: seen and evaluated this morning more alert but still confused and mumbles words had 2 bowel movements HR runs 110s-130s Afib rvr Blood culture growing GPC Review of Systems Review of Systems: Yes Unobtainable due to mental status Physical Exam 2 Vital Signs: Vital Signs: Last Vital Signs Temp 97.5 F 03/13/24 11:30 Pulse 103 H 03/13/24 11:30 Resp 20 03/13/24 11:30 BP 107/68 03/13/24 11:30 Pulse Ox 96 03/13/24 11:30 O2 Del Method Room Air 03/13/24 11:30 FiO2 97 03/12/24 14:27 BMI result Body Mass Index 43.9 Const: Other: Constitutional : more alert, responds to stimuli with words, not in distress Neck : Normal inspection, Supple Cardiovascular : RRR, no JVP, +1 lower extremity edema Respiratory : fair bilateral air entry, LLL crackles Gastrointestinal: soft, lax, Normal bowel sounds, Non tender Skin : Warm, Dry Neurological : alert , oriented to self and place, GCS 12 Objective Data Active Medications Acetaminophen (Acetaminophen 325 Mg Tablet) 650 mg PO Q6H PRN PRN Reason: Pain, Mild (Pain Scale 1-3) Albuterol Sulfate (Albuterol Sulfate 90 Mcg 8 Gm Inhaler) 2 puff INHALE Q4H PRN PRN Reason: Shortness Of Breath Or Wheezing Albuterol/Ipratropium (Albuterol/Iprat 2.5/0.5mg 3 Ml Ampul.Neb) 3 ml INHALE QID [facility] Last Admin: 03/13/24 11:21 Dose: 3 ml Documented By: FLAKITA Apixaban (Apixaban 5 Mg Tablet) 5 mg PO BID [facility] Last Admin: 03/13/24 10:18 Dose: Not Given Documented By: LINDA Non-Admin Reason: NPO Diltiazem HCl (Diltiazem Hcl Cd 180 Mg Cap.Er.24h) 360 mg PO DAILY [facility]; Protocol Last Admin: 03/13/24 10:18 Dose: Not Given Documented By: LINDA Non-Admin Reason: NPO Fluticasone/Vilanterol (Fluticasone/Vilanterol 200/25 Blst.W.Dev) 1 puff INHALE RDAILY [facility] Last Admin: 03/13/24 07:55 Dose: Not Given Documented By: FLAKITA Non-Admin Reason: med unavail pharmacy called Ceftriaxone Sodium 1 gm/ (Sodium Chloride) 50 mls @ 100 mls/hr IV Q24H [facility] Last Infusion: 03/13/24 00:44 Dose: Infused Documented By: SHELTON Metronidazole (Flagyl) 500 mg in 100 mls @ 100 mls/hr IV Q8H [facility] Last Infusion: 03/13/24 11:49 Dose: Infused Documented By: LINDA Vancomycin HCl 750 mg/ Sodium (Chloride) 265 mls @ 265 mls/hr IV Q24H [facility] Insulin Glargine (Insulin Glargine,Hum.Rec.Anlog 100 Unit/Ml 10 Ml Vial) 20 unit SUBCUT BID [facility] Last Admin: 03/13/24 10:17 Dose: Not Given Documented By: LINDA Non-Admin Reason: NPO Insulin Human Lispro (Insulin Lispro 100 Unit/Ml 3 Ml Vial) 0 unit SUBCUT QIDACHS [facility]; Protocol Last Admin: 03/13/24 11:37 Dose: Not Given Documented By: LINDA Non-Admin Reason: No Insulin Coverage Lactulose (Lactulose 20 Gm/30 Ml Solution) 30 gm PO BID [facility] Last Admin: 03/13/24 10:17 Dose: Not Given Documented By: LINDA Non-Admin Reason: NPO Lactulose (Lactulose 20 Gm/30 Ml Solution) 200 gm OK Q6H [facility] Last Admin: 03/13/24 05:43 Dose: 200 gm Documented By: SHELTON Levothyroxine Sodium (Levothyroxine Sodium 50 Mcg Tablet) 50 mcg PO DAILY@0600 [facility] Last Admin: 03/13/24 05:27 Dose: Not Given Documented By: SHELTON Non-Admin Reason: Patient lethargic Metoprolol Tartrate (Metoprolol Tartrate 5 Mg/5 Ml Vial) 5 mg IVPUSH Q6H PRN; Protocol PRN Reason: HR > 120 Last Admin: 03/13/24 08:47 Dose: 5 mg Documented By: LINDA Nystatin (Nystatin Powder 15 Gm Bottle) 1 appl TOPICAL BID [facility]; Protocol Last Admin: 03/13/24 10:44 Dose: 1 appl Documented By: LINDA Omeprazole (Omeprazole 20 Mg Capsule.Dr) 20 mg PO BID@0630,1630 [facility] Last Admin: 03/13/24 05:28 Dose: Not Given Documented By: SHELTON Non-Admin Reason: NPO, pt lethargic Ondansetron HCl (Ondansetron Hcl 4 Mg/2 Ml Vial) 4 mg IVPUSH Q8H PRN PRN Reason: Nausea and Vomiting Pharmacy Consult (Consult Rx Vancomycin Dosing) 1 each MISCELLANE DAILY [facility] Rifaximin (Rifaximin 550 Mg Tablet) 550 mg PO BID [facility] Last Admin: 03/13/24 10:18 Dose: Not Given Documented By: LINDA Non-Admin Reason: NPO Labs 03/11/24 23:38 03/11/24 23:38 Labs: Laboratory Results - last 24 hr 03/12/24 03/12/24 03/13/24 15:16 21:36 07:20 POC Glucose 207 H 173 H 129 H 03/13/24 11:03 POC Glucose 144 H Microbiology Microbiology Results: Microbiology 03/11/24 23:56 Blood Culture - Final Blood - Venous Coag negative Staphylococcus 03/11/24 23:56 Blood Culture - Preliminary Blood - Venous No growth after 24 hours. 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 # Toxic metabolic encephalopathy 2/2 possible colitis , liver cirrhosis had 2 BM overnight, continue Lactulose enema for now NPO now CT chest showing interval improvement CT Abd concerning for possible Colitis Treat with IV antibiotics pending blood cultures # GPC positive cultures final culture grew Coag negative Staph DC Vancomycin # Lactic acidosis secondary to liver cirrhosis not sepsis # Acute kidney injury on CKD4 with chronic mild hyponatremia Prerenal Cr 2.4 from 1.7 avoid nephrotoxic , IVF replacement follow BMP, I\O # PAF, Continue diltiazem, Eliquis # chronic thrombocytopenia-related to cirrhosis # asthma/COPD overlap, continue home inhalers, albuterol p.r.n. # insulin-dependent type 2 diabetes with hyperglycemia, Continue basal bolus insulin # hypothyroidism, continue levothyroxine DVT prophylaxis-Eliquis The patient will need overnight hospital stay for treatment of Bacteremia with IV antibiotics pending final sensitivity, treating YORDAN and encephalopathy . Quality Stroke Does the patient have a stroke diagnosis?: No VTE Prior VTE?: No VTE Risk Level:: Medical - moderate - high VTE Device Contraindication: Treatment Not Indicated VTE Drug Contraindication: N/A - Med Ordered
--- NOTE | 2024-03-13 12:06 | MHC.CLN ---
PT WITH INCREASED NUTRITION RISK R/T PRESSURE INJURY PT IS CURRENTLY NPO PT RECEPTIVE TO HIGH PROTEIN GELATIN TO PROMOTE WOUND HEALING WHEN DIET TO ADVANCE; WILL ADD GELATEIN TID TO PROVIDE 480KCALS, 60G PROTEIN MONITOR FOR DIET ADVANCEMENT SEE ALSO FULL CLINCAL NUTRITION ASSESSMENT
--- NOTE | 2024-03-13 13:14 | MHC.SL.SWA ---
Speech Pathologist Impression: Risk of aspiration, oral phase dysphagia Risk of Aspiration Due to: Lethargy Dysphasia Diet Status:Upgrade from NPO, start on NDD2/THIN Liquid Consistency and Strategies for Safe Swallow: Liquid Intake Recommendation: Thin Liquid Intake Strategies: Small Sips Solid Food Consistency: Dietary Recommendations: Grnd/Mech Altered (NDD2) Additional Modifications to Solid Foods: Patient seen this morning for bedside dysphagia exam. Note slow and prolonged oral phase d/t generalized weakness and delayed swallow. Recommend start on GROUND/MECH ALTERED diet (NDD2) and THIN liquids, crushed pills in puree. Patient will need 1:1 feeding at this time. This was the same diet level that was recommended at recent discharge 03/08 and continued at [facility]. Oral Medication Intake: Crushed with Puree Please contact the pharmacy regarding appropriate crushable or liquid drug formulations that are available whenever modified delivery is recommended. Compensatory Strategies and Precautions to be Taken for Safe Swallow: Sitting Upright (90 deg) Double Swallow Small Bites and Sips Alternate Liquids/Solids Rate of Ingestion Change Oral Check Avoid Specific Foods Supervision While Eating and Drinking for Safe Swallow: Total Assistance (1:1) Foods to Avoid: Hard, dry, or crunchy foods Swallowing Recommended Treatments: Compens. Strategy Educat. Recommendation for Speech: Inpatient Speech Therapy Comment: PULMONOLOGIST INTENSIVIST will continue to follow during inpatient stay to monitor tolerance of modified diet, re-assess for potential upgrade if appropriate. Frequency/Duration: Date Range for Service Req: Timeline to reassess: Bed And Breakfast Cook Clinican/Clinical Fellow: No Supervisory Statement: I have reviewed and agree with the student/clinical fellow's documentation: N/A Speech Language Pathologist: Jazmine Vaca M.A., CCC-PULMONOLOGIST INTENSIVIST
[2024-03-13 14:03] LABS: Hematocrit 32.1 % (37.0-47.0); Hemoglobin 10.8 g/dl (12.0-16.0); Mean Corpuscular HGB Conc 33.6 g/dl (31.0-35.0); Mean Corpuscular Hemoglobin 30.3 pg (27.0-33.0); Mean Corpuscular Volume 89.9 fL (80.0-98.0); Mean Platelet Volume 12.5 fL (9.4-12.3); NRBC Pct Auto 0.2 /100WBC (0.0-0.2); PLT CLUMP 1; Red Blood Count 3.57 X10*6/uL (4.20-5.50); Red Cell Distribution Width 20.8 % (11.0-16.0)
[2024-03-13 14:26] LABS: Platelet Count 213 X10*3/uL (160-400)
[2024-03-13 15:59] LABS: Alanine Aminotransferase 48 U/L (0-31); Albumin Level 2.3 g/dL (3.5-5.0); Alkaline Phosphatase 234 U/L (39-117); Anion Gap 17 (12-20); Aspartate Amino Transferase 101 U/L (5-31); Bilirubin Total 4.8 mg/dL (0.0-1.0); Blood Urea Nitrogen 96 mg/dL (9-16); Calcium 8.7 mg/dL (8.4-10.2); Carbon Dioxide 20 mmol/L (22-29); Chloride 99 mmol/L (96-108); Creatinine Clr Calc Pharmacy 26.3; Estimated Glomerular Filt Rate 17; Glucose Random 144 mg/dL (60-115); Potassium 5.4 mmol/L (3.3-5.1); Sodium 131 mmol/L (135-145); Total Protein 6.1 g/dL (6.5-8.0)
[2024-03-13 16:08] LABS: Glucose, Whole Blood 129 mg/dL (60-115)
[2024-03-13 21:13] LABS: Glucose, Whole Blood 148 mg/dL (60-115)
[2024-03-13] MEDS: cefTRIAXone sodium 1 GM in 0.9 % Sodium Chloride 50 ML IV (22:45)
[2024-03-14] VITALS (13 sets, daily range): BP systolic 102–144; BP diastolic 53–85; PULSE 105–131; RESP 16–24; TEMP 36–36.6; O2SAT 92–95
[2024-03-14] MEDS: Metoprolol Tartrate 5 MG/5 ML VIAL IVPUSH ×2 (00:02→12:08)
[2024-03-14] MEDS: Lactulose 20 GM/30 ML SOLUTION 200 GM PR (00:29)
[2024-03-14] MEDS: metroNIDAZOLE/NS 500 MG/100 ML PIGGYBACK 100 MG IV ×3 (05:23→17:25)
[2024-03-14 07:40] LABS: Glucose, Whole Blood 147 mg/dL (60-115)
[2024-03-14] MEDS: Albuterol/Iprat 2.5/0.5MG 3 ML AMPUL.NEB INHALE ×4 (07:55→20:03)
[2024-03-14 08:21] LABS: Hematocrit 34.3 % (37.0-47.0); Hemoglobin 11.5 g/dl (12.0-16.0); Mean Corpuscular HGB Conc 33.5 g/dl (31.0-35.0); Mean Corpuscular Hemoglobin 29.9 pg (27.0-33.0); Mean Corpuscular Volume 89.1 fL (80.0-98.0); Mean Platelet Volume 12.1 fL (9.4-12.3); Platelet Count 218 X10*3/uL (160-400); Red Blood Count 3.85 X10*6/uL (4.20-5.50); Red Cell Distribution Width 21.2 % (11.0-16.0); White Blood Count 13.9 X10*3/uL (4.8-10.8)
[2024-03-14 08:55] LABS: Anion Gap 21 (12-20); Blood Urea Nitrogen 101 mg/dL (9-16); Calcium 8.7 mg/dL (8.4-10.2); Carbon Dioxide 19 mmol/L (22-29); Chloride 98 mmol/L (96-108); Creatinine Clr Calc Pharmacy 23.2; Estimated Glomerular Filt Rate 15; Glucose Random 147 mg/dL (60-115); Potassium 4.6 mmol/L (3.3-5.1); Sodium 133 mmol/L (135-145)
[2024-03-14] MEDS: Lactulose 20 GM/30 ML SOLUTION 30 GM PO ×2 (09:08→22:23)
[2024-03-14] MEDS: rifAXIMin 550 MG TABLET PO ×2 (09:08→22:23)
[2024-03-14] MEDS: Apixaban 5 MG TABLET PO ×2 (09:08→22:23)
[2024-03-14] MEDS: dilTIAZem HCL CD 180 MG CAP.ER.24H 360 MG PO (09:17)
[2024-03-14] MEDS: Nystatin Powder 15 GM BOTTLE 1 APPL TOPICAL ×2 (09:18→22:25)
[2024-03-14] MEDS: Insulin Glargine,Hum.rec.anlog 100 UNIT/ML 10 ML VIAL 20 UNIT SUBCUT ×2 (09:18→22:23)
[2024-03-14 11:41] LABS: Glucose, Whole Blood 151 mg/dL (60-115)
[2024-03-14] MEDS: Insulin Lispro 100 UNIT/ML 3 ML VIAL SUBCUT (12:09)
--- NOTE | 2024-03-14 12:29 | HO.PM.IMPN ---
Subjective Subjective Date of Service: 03/14/24 Interval History: seen and evaluated this morning more alert but still confused and mumbles words had 2 bowel movements HR runs 110s-130s Afib rvr tolerating PO Physical Exam Vital Signs: Vital Signs: Last Vital Signs Temp 97.3 F 03/14/24 11:47 Pulse 127 H 03/14/24 11:47 Resp 20 03/14/24 11:47 BP 102/57 L 03/14/24 11:47 Pulse Ox 95 03/14/24 11:47 O2 Del Method Room Air 03/14/24 11:47 FiO2 97 03/12/24 14:27 BMI result Body Mass Index 43.9 Const: Other: Constitutional : more alert, responds to stimuli with words, not in distress Neck : Normal inspection, Supple Cardiovascular : RRR, no JVP, +2 lower extremity edema Respiratory : fair bilateral air entry, LLL crackles Gastrointestinal: soft, lax, Normal bowel sounds, Non tender Skin : Warm, Dry Neurological : alert , oriented to self and place, GCS 12 Objective Data Active Medications Acetaminophen (Acetaminophen 325 Mg Tablet) 650 mg PO Q6H PRN PRN Reason: Pain, Mild (Pain Scale 1-3) Albuterol Sulfate (Albuterol Sulfate 90 Mcg 8 Gm Inhaler) 2 puff INHALE Q4H PRN PRN Reason: Shortness Of Breath Or Wheezing Albuterol/Ipratropium (Albuterol/Iprat 2.5/0.5mg 3 Ml Ampul.Neb) 3 ml INHALE QID [facility] Last Admin: 03/14/24 11:29 Dose: 3 ml Documented By: RENATA Apixaban (Apixaban 5 Mg Tablet) 5 mg PO BID [facility] Last Admin: 03/14/24 09:08 Dose: 5 mg Documented By: LINDA Diltiazem HCl (Diltiazem Hcl Cd 180 Mg Cap.Er.24h) 360 mg PO DAILY [facility]; Protocol Last Admin: 03/14/24 09:17 Dose: 360 mg Documented By: LINDA Fluticasone/Vilanterol (Fluticasone/Vilanterol 200/25 Blst.W.Dev) 1 puff INHALE RDAILY [facility] Last Admin: 03/14/24 07:56 Dose: Not Given Documented By: RENATA Non-Admin Reason: pt unable to participate. Ceftriaxone Sodium 1 gm/ (Sodium Chloride) 50 mls @ 100 mls/hr IV Q24H [facility] Last Infusion: 03/13/24 23:20 Dose: Infused Documented By: LAURA Metronidazole (Flagyl) 500 mg in 100 mls @ 100 mls/hr IV Q8H [facility] Last Admin: 03/14/24 12:08 Dose: 100 mls/hr Documented By: RIVAS Insulin Glargine (Insulin Glargine,Hum.Rec.Anlog 100 Unit/Ml 10 Ml Vial) 20 unit SUBCUT BID [facility] Last Admin: 03/14/24 09:18 Dose: 20 unit Documented By: LINDA Insulin Human Lispro (Insulin Lispro 100 Unit/Ml 3 Ml Vial) 0 unit SUBCUT QIDACHS [facility]; Protocol Last Admin: 03/14/24 12:09 Dose: 2 unit Documented By: RIVAS Lactulose (Lactulose 20 Gm/30 Ml Solution) 30 gm PO BID [facility] Last Admin: 03/14/24 09:08 Dose: 30 gm Documented By: LINDA Lactulose (Lactulose 20 Gm/30 Ml Solution) 200 gm VA Q6H [facility] Last Admin: 03/14/24 09:09 Dose: Not Given Documented By: LINDA Non-Admin Reason: took PO dose Levothyroxine Sodium (Levothyroxine Sodium 50 Mcg Tablet) 50 mcg PO DAILY@0600 [facility] Last Admin: 03/14/24 05:24 Dose: Not Given Documented By: LAURA Non-Admin Reason: NPO Metoprolol Tartrate (Metoprolol Tartrate 5 Mg/5 Ml Vial) 5 mg IVPUSH Q6H PRN; Protocol PRN Reason: HR > 120 Last Admin: 03/14/24 12:08 Dose: 5 mg Documented By: RIVAS Nystatin (Nystatin Powder 15 Gm Bottle) 1 appl TOPICAL BID [facility]; Protocol Last Admin: 03/14/24 09:18 Dose: 1 appl Documented By: LINDA Omeprazole (Omeprazole 20 Mg Capsule.) 20 mg PO BID@0630,1630 [facility] Last Admin: 03/14/24 05:24 Dose: Not Given Documented By: LAURA Non-Admin Reason: NPO Ondansetron HCl (Ondansetron Hcl 4 Mg/2 Ml Vial) 4 mg IVPUSH Q8H PRN PRN Reason: Nausea and Vomiting Rifaximin (Rifaximin 550 Mg Tablet) 550 mg PO BID [facility] Last Admin: 03/14/24 09:08 Dose: 550 mg Documented By: LINDA Labs 03/14/24 08:12 03/14/24 08:12 Labs: Laboratory Results - last 24 hr 03/13/24 03/13/24 03/13/24 13:26 13:52 14:57 MCV Cancelled 89.9 MCH Cancelled 30.3 MCHC Cancelled 33.6 RDW Cancelled 20.8 H Plt Count Cancelled 213 MPV Cancelled 12.5 H Absolute Nucleated RBC Cancelled 0.030 H Nucleated RBC % (auto) Cancelled 0.2 Hold Purple Top SEE NOTE Anion Gap 17 Estim Creat Clear Calc 26.3 Estimated GFR 17 POC Glucose Random Glucose 144 H Calcium 8.7 D Total Bilirubin 4.8 H AST 101 H ALT 48 H Alkaline Phosphatase 234 H Total Protein 6.1 L Albumin 2.3 L 03/13/24 03/13/24 03/14/24 16:05 21:07 07:33 MCV MCH MCHC RDW Plt Count MPV Absolute Nucleated RBC Nucleated RBC % (auto) Hold Purple Top Anion Gap Estim Creat Clear Calc Estimated GFR POC Glucose 129 H 148 H 147 H Random Glucose Calcium Total Bilirubin AST ALT Alkaline Phosphatase Total Protein Albumin 03/14/24 03/14/24 08:12 11:26 MCV 89.1 MCH 29.9 MCHC 33.5 RDW 21.2 H Plt Count 218 MPV 12.1 Absolute Nucleated RBC 0.000 Nucleated RBC % (auto) 0.0 Hold Purple Top Anion Gap 21 H Estim Creat Clear Calc 23.2 Estimated GFR 15 POC Glucose 151 H Random Glucose 147 H Calcium 8.7 Total Bilirubin AST ALT Alkaline Phosphatase Total Protein Albumin Microbiology Microbiology Results: Microbiology 03/11/24 23:56 Blood Culture - Preliminary Blood - Venous No growth after 48 hours. 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 # Toxic metabolic encephalopathy 2/2 possible colitis , liver cirrhosis WBCs trending down had 3 BM overnight, continue Lactulose enema for now until she takes PO NPO now Negative cultures CT chest showing interval improvement CT Abd concerning for possible Colitis Treat with IV antibiotics: Flagyl and Ceftriaxone started 6/2 advance diet as tolerated # GPC positive cultures final culture grew Coag negative Staph DC Vancomycin # Lactic acidosis secondary to liver cirrhosis not sepsis # Acute kidney injury on CKD4 with chronic mild hyponatremia seems more of Prerenal Cr 3 from 1.7 avoid nephrotoxic , IVF replacement Nephrology consult follow BMP, I\O # PAF, Continue diltiazem, Eliquis # chronic thrombocytopenia-related to cirrhosis # asthma/COPD overlap, continue home inhalers, albuterol p.r.n. # insulin-dependent type 2 diabetes with hyperglycemia, Continue basal bolus insulin # hypothyroidism, continue levothyroxine DVT prophylaxis-Eliquis The patient will need overnight hospital stay for treatment of Bacteremia with IV antibiotics pending final sensitivity, treating YORDAN and encephalopathy . Quality Stroke Does the patient have a stroke diagnosis?: No VTE Prior VTE?: No VTE Risk Level:: Medical - moderate - high VTE Device Contraindication: Treatment Not Indicated VTE Drug Contraindication: N/A - Med Ordered
--- NOTE | 2024-03-14 13:04 | PM.CNNEP ---
History of Present Illness Reason for Consult Consult date: 03/16/24 Chief Complaint Chief complaint: altered mentation, afib w rvr History of Present Illness Narrative: 73-year-old female with a PMH significant for?asthma/COPD overlap syndrome not on home O2, hx of PE on Eliquis, paroxysmal atrial fibrillation, insulin-dependent type 2 diabetes, hypothyroidism, GERD, GRIMES cirrhosis, Recently discharged from the hospital. She was on Lasix 40 mg. Patient creatinine is around 1.7 mg/dL. At the time of admission creatinine was more than 3 with a BUN of 100 and hence this consultation Review of Systems Review of Systems Yes Unobtainable due to mental status PMFSH Past Medical History Medical History Asthma Bacteremia Morbid (severe) obesity due to excess calories Asthma-COPD overlap syndrome Hypothyroidism Pulmonary embolism Depression Hyperlipidemia Rheumatoid arthritis Hypertension Diabetes mellitus, type 2 Social History Social History Household Members: Other Household Members Other:: sister and brother Housing: Other Housing Other:: [facility] Do you presently have visiting nurse or other home services: No (Meals on Wheels) Unable to assess alcohol history related to: Unable to respond Alcohol intake: never Comment: hallway is being painted , no falling stars at this time Patient Tobacco Use Status: Never used Tobacco Advance Directives Date on File: 06/07/23 service: No Current occupational status: disabled Meds Allergies Allergy/AdvReac Type Severity Reaction Status Date / Time rosuvastatin [From CRESTOR] Allergy Unknown Unknown Verified 03/11/24 23:43 coconut Allergy Unknown Verified 03/11/24 23:43 empagliflozin Allergy Unknown Verified 03/11/24 23:43 [From Jardiance] piperacillin [From Zosyn] AdvReac Intermediate Vomiting Verified 03/11/24 23:43 tazobactam [From Zosyn] AdvReac Intermediate Vomiting Verified 03/11/24 23:43 Active Medications: Current Medications Acetaminophen (Acetaminophen 325 Mg Tablet) 650 mg PO Q6H PRN PRN Reason: Pain, Mild (Pain Scale 1-3) Albuterol Sulfate (Albuterol Sulfate 90 Mcg 8 Gm Inhaler) 2 puff INHALE Q4H PRN PRN Reason: Shortness Of Breath Or Wheezing Albuterol/Ipratropium (Albuterol/Iprat 2.5/0.5mg 3 Ml Ampul.Neb) 3 ml INHALE QID [facility] Last Admin: 03/14/24 11:29 Dose: 3 ml Apixaban (Apixaban 5 Mg Tablet) 5 mg PO BID [facility] Last Admin: 03/14/24 09:08 Dose: 5 mg Diltiazem HCl (Diltiazem Hcl Cd 180 Mg Cap.Er.24h) 360 mg PO DAILY [facility]; Protocol Last Admin: 03/14/24 09:17 Dose: 360 mg Fluticasone/Vilanterol (Fluticasone/Vilanterol 200/25 Blst.W.Dev) 1 puff INHALE RDAILY [facility] Last Admin: 03/14/24 07:56 Dose: Not Given Ceftriaxone Sodium 1 gm/ (Sodium Chloride) 50 mls @ 100 mls/hr IV Q24H [facility] Last Infusion: 03/13/24 23:20 Dose: Infused Metronidazole (Flagyl) 500 mg in 100 mls @ 100 mls/hr IV Q8H [facility] Last Admin: 03/14/24 12:08 Dose: 100 mls/hr Insulin Glargine (Insulin Glargine,Hum.Rec.Anlog 100 Unit/Ml 10 Ml Vial) 20 unit SUBCUT BID [facility] Last Admin: 03/14/24 09:18 Dose: 20 unit Insulin Human Lispro (Insulin Lispro 100 Unit/Ml 3 Ml Vial) 0 unit SUBCUT QIDACHS [facility]; Protocol Last Admin: 03/14/24 12:09 Dose: 2 unit Lactulose (Lactulose 20 Gm/30 Ml Solution) 30 gm PO BID [facility] Last Admin: 03/14/24 09:08 Dose: 30 gm Lactulose (Lactulose 20 Gm/30 Ml Solution) 200 gm AL Q6H [facility] Last Admin: 03/14/24 09:09 Dose: Not Given Levothyroxine Sodium (Levothyroxine Sodium 50 Mcg Tablet) 50 mcg PO DAILY@0600 [facility] Last Admin: 03/14/24 05:24 Dose: Not Given Metoprolol Tartrate (Metoprolol Tartrate 5 Mg/5 Ml Vial) 5 mg IVPUSH Q6H PRN; Protocol PRN Reason: HR > 120 Last Admin: 03/14/24 12:08 Dose: 5 mg Nystatin (Nystatin Powder 15 Gm Bottle) 1 appl TOPICAL BID [facility]; Protocol Last Admin: 03/14/24 09:18 Dose: 1 appl Omeprazole (Omeprazole 20 Mg Capsule.) 20 mg PO BID@0630,1630 [facility] Last Admin: 03/14/24 05:24 Dose: Not Given Ondansetron HCl (Ondansetron Hcl 4 Mg/2 Ml Vial) 4 mg IVPUSH Q8H PRN PRN Reason: Nausea and Vomiting Rifaximin (Rifaximin 550 Mg Tablet) 550 mg PO BID [facility] Last Admin: 03/14/24 09:08 Dose: 550 mg Home Medications ?Medication ?Instructions ?Recorded ?Confirmed ?Last Taken ?Type albuterol sulfate 90 mcg/actuation 2 puff inhalation Q4H PRN 01/20/23 03/12/24 01/19/23 History aerosol inhaler Shortness Of Breath Or Wheezing apixaban 5 mg tablet (Eliquis) 5 mg PO BID 01/20/23 03/12/24 11/22/23 History calcium carbonate 600 mg-vitamin 1 tab PO DAILY 01/20/23 03/12/24 11/22/23 History D3 5 mcg (200 unit) tablet citalopram 20 mg tablet 20 mg PO DAILY 01/20/23 03/12/24 11/22/23 History ferrous sulfate 325 mg (65 mg 325 mg PO DAILY 01/20/23 03/12/24 11/22/23 History iron) tablet levothyroxine 50 mcg tablet 50 mcg PO DAILY@0600 01/20/23 03/12/24 11/22/23 History montelukast 10 mg tablet 10 mg PO BEDTIME 01/20/23 03/12/24 11/21/23 History insulin glargine 100 unit/mL (3 50 unit subcut BID 06/01/23 03/12/24 11/22/23 History mL) subcutaneous pen (Basaglar KwikPen U-100 Insulin) docusate sodium 100 mg capsule 100 mg PO BID PRN Constipation 07/20/23 03/12/24 11/22/23 History folic acid 1 mg tablet 1 mg PO DAILY 07/20/23 03/12/24 11/22/23 History adalimumab 40 mg/0.8 mL 40 mg subcut Q14D 11/22/23 03/12/24 02/18/24 History subcutaneous syringe kit (Humira) fluticasone 500 mcg-salmeterol 50 1 ea inhalation BID 11/22/23 03/12/24 11/22/23 History mcg/dose blistr powdr for inhalation (Wixela Inhub) simvastatin 20 mg tablet 20 mg PO BEDTIME 02/07/24 03/12/24 Unknown History acetaminophen 325 mg tablet 650 mg PO Q8H PRN Pain 02/21/24 03/12/24 Unknown History insulin lispro 100 unit/mL 1 sliding scale dose subcut TIDAC 02/21/24 03/12/24 Unknown History subcutaneous pen (Humalog KwikPen (U-100) Insulin) ipratropium 0.5 mg-albuterol 3 mg 3 ml inhalation QID 02/21/24 03/12/24 Unknown History (2.5 mg base)/3 mL nebulization soln polyethylene glycol 3350 17 gram 17 g PO DAILY 02/21/24 03/12/24 Unknown History oral powder packet (Miralax) sennosides 8.6 mg tablet (senna) 17.2 mg PO BID 02/21/24 03/12/24 Unknown History bisacodyl 10 mg rectal suppository 10 mg AL DAILY PRN Constipation 03/12/24 03/12/24 Unknown History (Dulcolax (bisacodyl)) magnesium hydroxide 400 mg/5 mL 30 ml PO DAILY PRN Constipation 03/12/24 03/12/24 Unknown History oral suspension (Milk of Magnesia) nystatin 100,000 unit/gram topical 1 appl topical BID 03/12/24 03/12/24 Unknown History powder sodium phosphates 19 gram-7 118 ml AL DAILY PRN Constipation 03/12/24 03/12/24 Unknown History gram/118 mL enema (Fleet Enema) Physical Exam Vital Signs: Last Vital Signs Temp 97.3 F 03/14/24 11:47 Pulse 127 H 03/14/24 11:47 Resp 20 03/14/24 11:47 BP 102/57 L 03/14/24 11:47 Pulse Ox 95 03/14/24 11:47 O2 Del Method Room Air 03/14/24 11:47 FiO2 97 03/12/24 14:27 BMI result Body Mass Index 43.9 Const General: ill appearing Neck Neck: Yes supple Resp Auscultation: clear to auscultation bilaterally Cardio Palpation: no palpable S3 Heart sounds: no rubs GI Palpation (GI): Soft to palpation Auscultation: normal bowel sounds Neuro Motor exam (neuro): no asterixis Results Lab Results 03/16/24 06:09 03/16/24 06:09 Lab results: Chemistry 03/11/24 03/13/24 03/14/24 23:38 14:57 08:12 Sodium 130 L 131 L 133 L Potassium 3.9 5.4 H D 4.6 Carbon Dioxide 25 20 L 19 L BUN 81 H 96 H 101 H Creatinine 2.43 H 2.73 H 3.09 H Calcium 9.3 8.7 D 8.7 Hematology 03/11/24 03/13/24 03/13/24 23:38 13:26 13:52 WBC 12.8 H Cancelled 18.0 H Hgb 10.8 L Cancelled 10.8 L Plt Count 212 D Cancelled 213 03/14/24 08:12 WBC 13.9 H Hgb 11.5 L Plt Count 218 Urinalysis 03/12/24 00:20 Urine Color Dark Yellow Urine Appearance Clear Urine pH 5.0 Ur Specific [place] 1.015 Urine Protein Negative Urine Glucose (UA) Negative Urine Ketones Negative Urine Blood Negative Urine Nitrite Negative Ur Leukocyte Esterase Trace H Urine RBC 0-2 Urine WBC 0-5 Ur Squamous Epith Cells 0-2 Hyaline Casts 0-2 Assessment and Plan (1) Acute kidney injury superimposed on CKD: Status: Acute . Plan YORDAN superimposed on CKD due to hypoperfusion. This episode of YORDAN due to hypoperfusion from significant diuresis. Suggest to hold diuretics. Watch urine output. Cautious hydration with normal saline 50 cc/hour x1 L and reassess No indication for dialysis h/o Hyperkalemia due to the combination of spironolactone setting of renal insufficiency. For now I will hold off on using spironolactone. Keep on low-potassium diet and use Lokelma as needed. Hepatic encephalopathy Check ammonia Lactulose to correct hyperammonemia Procedures Date of Service Date of Service: 03/16/24
--- NOTE | 2024-03-14 13:38 | MHC.SPEECHCO ---
RN CRITICAL CARE unable to work with Pt 2/2 lethargy. Reminded MD of previous recommendations for Ground/Mech (NDD2) and Thin Liquids. However, continue to hold trays if Pt is too lethargic to open her eye or communicate a desire to eat. RN CRITICAL CARE following.
[2024-03-14] MEDS: Omeprazole 20 MG CAPSULE.DR PO (16:03)
[2024-03-14] MEDS: Acetaminophen 325 MG TABLET 650 MG PO (16:03)
[2024-03-14] MEDS: 0.9 % Sodium Chloride 1,000 ML 50 ML IVCONT (16:03)
[2024-03-14 16:22] LABS: Glucose, Whole Blood 123 mg/dL (60-115)
[2024-03-14 20:14] LABS: Glucose, Whole Blood 128 mg/dL (60-115)
[2024-03-14] MEDS: cefTRIAXone sodium 1 GM in 0.9 % Sodium Chloride 50 ML IV (22:24)
[2024-03-15] VITALS (10 sets, daily range): BP systolic 94–116; BP diastolic 50–57; PULSE 70–112; RESP 18–22; TEMP 35.9–36.5; O2SAT 94–96
[2024-03-15 01:22] LABS: Glucose, Whole Blood 151 mg/dL (60-115)
[2024-03-15] MEDS: metroNIDAZOLE/NS 500 MG/100 ML PIGGYBACK 100 MG IV ×3 (01:29→18:38)
[2024-03-15 07:12] LABS: Glucose, Whole Blood 178 mg/dL (60-115)
[2024-03-15] MEDS: Albuterol/Iprat 2.5/0.5MG 3 ML AMPUL.NEB INHALE ×2 (07:59→18:56)
[2024-03-15] MEDS: Apixaban 5 MG TABLET PO ×2 (09:37→22:01)
[2024-03-15] MEDS: dilTIAZem HCL CD 180 MG CAP.ER.24H 360 MG PO (09:38)
[2024-03-15] MEDS: rifAXIMin 550 MG TABLET PO ×2 (09:38→22:01)
[2024-03-15] MEDS: Levothyroxine Sodium 50 MCG TABLET PO (09:38)
[2024-03-15] MEDS: Insulin Glargine,Hum.rec.anlog 100 UNIT/ML 10 ML VIAL 20 UNIT SUBCUT ×2 (09:38→22:01)
[2024-03-15] MEDS: Lactulose 20 GM/30 ML SOLUTION 30 GM PO ×2 (09:39→22:01)
[2024-03-15] MEDS: Nystatin Powder 15 GM BOTTLE 1 APPL TOPICAL ×2 (09:42→22:03)
[2024-03-15 09:44] LABS: Hematocrit 30.1 % (37.0-47.0); Hemoglobin 10.1 g/dl (12.0-16.0); Mean Corpuscular HGB Conc 33.6 g/dl (31.0-35.0); Mean Corpuscular Volume 89.3 fL (80.0-98.0); Mean Platelet Volume 11.7 fL (9.4-12.3); NRBC Pct Auto 0.1 /100WBC (0.0-0.2); Platelet Count 215 X10*3/uL (160-400); Red Blood Count 3.37 X10*6/uL (4.20-5.50); Red Cell Distribution Width 21.7 % (11.0-16.0); White Blood Count 17.3 X10*3/uL (4.8-10.8)
[2024-03-15] MEDS: Insulin Lispro 100 UNIT/ML 3 ML VIAL SUBCUT ×4 (09:54→22:02)
[2024-03-15 09:58] LABS: Alanine Aminotransferase 45 U/L (0-31); Albumin Level 1.8 g/dL (3.5-5.0); Alkaline Phosphatase 209 U/L (39-117); Anion Gap 19 (12-20); Aspartate Amino Transferase 119 U/L (5-31); Bilirubin Direct 2.5 mg/dL (0.0-0.5); Bilirubin Total 3.8 mg/dL (0.0-1.0); Blood Urea Nitrogen 108 mg/dL (9-16); Carbon Dioxide 18 mmol/L (22-29); Chloride 101 mmol/L (96-108); Creatinine Clr Calc Pharmacy 18.8; Estimated Glomerular Filt Rate 12; Glucose Random 204 mg/dL (60-115); Sodium 133 mmol/L (135-145); Total Protein 4.6 g/dL (6.5-8.0)
[2024-03-15 10:05] LABS: Ammonia 64 umol/L (13-55)
--- NOTE | 2024-03-15 10:58 | HO.PM.IMPN ---
Subjective Subjective Date of Service: 03/15/24 Interval History: weak, confused Physical Exam Vital Signs: Vital Signs: Last Vital Signs Temp 97.7 F 03/15/24 07:56 Pulse 75 03/15/24 09:48 Resp 22 H 03/15/24 08:03 BP 115/50 L 03/15/24 09:48 Pulse Ox 95 03/15/24 07:56 O2 Del Method Room Air 03/15/24 07:56 FiO2 97 03/12/24 14:27 BMI result Body Mass Index 43.9 lethargic, confrused, jaundiced, ill appearing, anasarca Objective Data Active Medications Acetaminophen (Acetaminophen 325 Mg Tablet) 650 mg PO Q6H PRN PRN Reason: Pain, Mild (Pain Scale 1-3) Last Admin: 03/14/24 16:03 Dose: 650 mg Documented By: LINDA Albuterol Sulfate (Albuterol Sulfate 90 Mcg 8 Gm Inhaler) 2 puff INHALE Q4H PRN PRN Reason: Shortness Of Breath Or Wheezing Albuterol/Ipratropium (Albuterol/Iprat 2.5/0.5mg 3 Ml Ampul.Neb) 3 ml INHALE QID [facility] Last Admin: 03/15/24 07:59 Dose: 3 ml Documented By: JAMILA Apixaban (Apixaban 5 Mg Tablet) 5 mg PO BID [facility] Last Admin: 03/15/24 09:37 Dose: 5 mg Documented By: LATOYA Diltiazem HCl (Diltiazem Hcl Cd 180 Mg Cap.Er.24h) 360 mg PO DAILY [facility]; Protocol Last Admin: 03/15/24 09:38 Dose: 360 mg Documented By: LATOYA Fluticasone/Vilanterol (Fluticasone/Vilanterol 200/25 Blst.W.Dev) 1 puff INHALE RDAILY [facility] Last Admin: 03/15/24 08:03 Dose: Not Given Documented By: JAMILA Non-Admin Reason: See Note Ceftriaxone Sodium 1 gm/ (Sodium Chloride) 50 mls @ 100 mls/hr IV Q24H [facility] Last Infusion: 03/14/24 23:22 Dose: Infused Documented By: LAURA Metronidazole (Flagyl) 500 mg in 100 mls @ 100 mls/hr IV Q8H [facility] Last Admin: 03/15/24 09:37 Dose: 100 mls/hr Documented By: LATOYA Sodium Chloride (Ns) 1,000 mls @ 50 mls/hr IVCONT .Q20H [facility] Stop: 03/15/24 11:44 Last Admin: 03/14/24 16:03 Dose: 50 mls/hr Documented By: LINDA Insulin Glargine (Insulin Glargine,Hum.Rec.Anlog 100 Unit/Ml 10 Ml Vial) 20 unit SUBCUT BID [facility] Last Admin: 03/15/24 09:38 Dose: 20 unit Documented By: LATOYA Insulin Human Lispro (Insulin Lispro 100 Unit/Ml 3 Ml Vial) 0 unit SUBCUT QIDACHS [facility]; Protocol Last Admin: 03/15/24 09:54 Dose: 2 unit Documented By: LATOYA Lactulose (Lactulose 20 Gm/30 Ml Solution) 30 gm PO BID [facility] Last Admin: 03/15/24 09:39 Dose: 30 gm Documented By: LATOYA Lactulose (Lactulose 20 Gm/30 Ml Solution) 200 gm VA Q6H [facility] Last Admin: 03/15/24 09:47 Dose: Not Given Documented By: LATOYA Non-Admin Reason: lactulose given po Levothyroxine Sodium (Levothyroxine Sodium 50 Mcg Tablet) 50 mcg PO DAILY@0600 [facility] Last Admin: 03/15/24 09:38 Dose: 50 mcg Documented By: LATOYA Metoprolol Tartrate (Metoprolol Tartrate 5 Mg/5 Ml Vial) 5 mg IVPUSH Q6H PRN; Protocol PRN Reason: HR > 120 Last Admin: 03/14/24 12:08 Dose: 5 mg Documented By: IRENEARRobert Nystatin (Nystatin Powder 15 Gm Bottle) 1 appl TOPICAL BID [facility]; Protocol Last Admin: 03/15/24 09:42 Dose: 1 appl Documented By: LATOYA Omeprazole (Omeprazole 20 Mg Capsule.Dr) 20 mg PO BID@0630,1630 [facility] Last Admin: 03/15/24 07:48 Dose: Not Given Documented By: LAURA Non-Admin Reason: Not a Crushable med Ondansetron HCl (Ondansetron Hcl 4 Mg/2 Ml Vial) 4 mg IVPUSH Q8H PRN PRN Reason: Nausea and Vomiting Rifaximin (Rifaximin 550 Mg Tablet) 550 mg PO BID [facility] Last Admin: 03/15/24 09:38 Dose: 550 mg Documented By: LATOYA Labs 03/15/24 09:35 03/15/24 09:35 Labs: Laboratory Results - last 24 hr 03/14/24 03/14/24 03/14/24 11:26 16:19 20:03 MCV MCH MCHC RDW Plt Count MPV Absolute Nucleated RBC Nucleated RBC % (auto) Anion Gap Estim Creat Clear Calc Estimated GFR POC Glucose 151 H 123 H 128 H Random Glucose Calcium Total Bilirubin Direct Bilirubin AST ALT Alkaline Phosphatase Ammonia Total Protein Albumin 03/15/24 03/15/24 03/15/24 01:18 07:09 09:35 MCV 89.3 MCH 30.0 MCHC 33.6 RDW 21.7 H Plt Count 215 MPV 11.7 Absolute Nucleated RBC 0.020 H Nucleated RBC % (auto) 0.1 Anion Gap 19 Estim Creat Clear Calc 18.8 Estimated GFR 12 POC Glucose 151 H 178 H Random Glucose 204 H Calcium 8.0 L D Total Bilirubin 3.8 H Direct Bilirubin 2.5 H AST 119 H ALT 45 H Alkaline Phosphatase 209 H Ammonia 64 H Total Protein 4.6 L Albumin 1.8 L Assessment and Plan (1) Colitis: Status: Acute (2) Acute kidney injury superimposed on CKD: Status: Acute (3) Acute hyponatremia: Status: Acute Plan 73F PMH significant for?asthma/COPD overlap syndrome not on home O2, hx of PE on Eliquis, paroxysmal atrial fibrillation, insulin-dependent type 2 diabetes, hypothyroidism, GERD, GRIMES cirrhosis, and mood disorder presented for worsening mentation and weakness. found to have lloyd on CKD III acute Toxic metabolic encephalopathy due to hepatic and uremic encephalopathy contiue lactulose, rifaximin, monitor possible colitis though more likely anasarca related continue empiric rocpehin, flagyl LLOYD on CKD III continue to worsen monitor output, creatinine renal following GRIMES cirrhosis Lactic acidosis secondary to liver cirrhosis not sepsis PAF with rvr Continue diltiazem, Eliquis chronic thrombocytopenia related to cirrhosis asthma/COPD overlap continue home inhalers, albuterol p.r.n. insulin-dependent type 2 diabetes with hyperglycemia Continue basal bolus insulin hypothyroidism continue levothyroxine dysphagia ndd2 solids, thin liquids DVT prophylaxis-Eliquis reason for continued hospitalization:lloyd, encephalopathy. Quality Stroke Does the patient have a stroke diagnosis?: No VTE Prior VTE?: No VTE Risk Level:: Medical - moderate - high VTE Device Contraindication: Treatment Not Indicated VTE Drug Contraindication: N/A - Med Ordered
--- NOTE | 2024-03-15 11:29 | HO.MIDLINE_ITS ---
Midline Insertion MIDLINE INSERTION Diagnosis: difficult IV access Indication: access and labs Pertinent Labs: reviewed and discussed GFR BUN and creat with Dr Hayward before placing midline. Nephrology clearance deferred per Dr. Hayward Technique: Using sterile technique including cap and mask, glove and drape, the right arm was prepped and draped in the usual sterile fashion of full barrier technique with CHG. Using ultrasound guidance, right basilic vein access was obtained . 4fr single lumen non pasv powermidline catheter was positioned. The procedure was performed in rm [id number]. Ultrasound was used to document vein patency and for needle entry. A formal ultrasound picture was recorded. Vascular Documentation Analyst has released the line for use and it is currently dressed with a StatLock, Tegaderm, and CHG disc. Verification has been performed for blood return and line patency. Arm Circumference: 33cm Equipment: Function Space PowerMidline catheter Catheter Type: 4fr single lumen non PASV powermidline catheter Lot #: [id number]
[2024-03-15 11:50] LABS: Glucose, Whole Blood 218 mg/dL (60-115)
[2024-03-15] MEDS: Midodrine HCl 10 MG TABLET PO ×2 (12:55→18:38)
[2024-03-15] MEDS: Albumin Human 25 % 100 ML IV ×4 (12:56→22:00)
--- NOTE | 2024-03-15 13:20 | MHC.CLN ---
F/U PO INTAKE POOR DIET ADVANCED TO 2GM NA GROUND PER CHART COMPUTER WILL ADD GELATEIN TID TO PROVIDE 480KCALS, 60G PROTEIN TO PROMOTE WOUND HEALING MONITOR PO INTAKE AND ENCOURAGE SUPPLEMENTS
--- NOTE | 2024-03-15 14:08 | MHC.SLORD ---
Speech Language Pathology Order Status: Pt declined PO trials w/ [employer] on this date. RN reports pt has been eating puree solids; mostly tajik ice and ice cream. Recommend DOWNGRADE to PUREE solids, to which pt nodded in agreeance, as pt has reportedly only tolerated pureed solids last 2 days. [employer] to re-evaluate tomorrow 03/16.
--- NOTE | 2024-03-15 16:12 | MHC.CM.PN ---
EMR reviewed and per MD rounds, pt is not medically cleared for discharge due to management of YORDAN and encephalopathy.
[2024-03-15 16:26] LABS: Glucose, Whole Blood 192 mg/dL (60-115)
[2024-03-15] MEDS: Heparin Sodium,Porcine Flush 50 UNITS, 0.9 % Sodium Chloride Flush 5 ML IVFLUSH (18:36)
[2024-03-15] MEDS: Omeprazole 20 MG CAPSULE.DR PO (18:37)
[2024-03-15] MEDS: Acetaminophen 325 MG TABLET 650 MG PO (18:38)
[2024-03-15 20:33] LABS: Glucose, Whole Blood 222 mg/dL (60-115)
--- NOTE | 2024-03-15 20:41 | P.PNNP_ITS ---
Subjective Subjective Date of Service: 03/15/24 Interval history: Weak, confused; All recent data reviewed; D/W hospitalist Physical Exam 2 Vital Signs: Vital Signs: Last Vital Signs Temp 97.5 F 03/15/24 20:00 Pulse 70 03/15/24 20:00 Resp 20 03/15/24 20:00 BP 100/52 L 03/15/24 20:00 Pulse Ox 96 03/15/24 20:00 O2 Del Method Room Air 03/15/24 20:00 FiO2 97 03/12/24 14:27 BMI result Body Mass Index 43.9 Const: General: no acute distress Neck: Neck: Yes supple Resp: Auscultation: diminished lung sounds Cardio: Rate: regular rate GI: Palpation (GI): Soft to palpation Auscultation: normal bowel sounds Skin: Other: Jaundiced Neuro: General: moves all extremities Extrem: General: Yes edema Objective Data Labs 03/15/24 09:35 03/15/24 09:35 Labs: Laboratory Results - last 24 hr 03/15/24 03/15/24 03/15/24 01:18 07:09 09:35 WBC 17.3 H RBC 3.37 L Hgb 10.1 L Hct 30.1 L MCV 89.3 MCH 30.0 MCHC 33.6 RDW 21.7 H Plt Count 215 MPV 11.7 Absolute Nucleated RBC 0.020 H Nucleated RBC % (auto) 0.1 Sodium 133 L Potassium 5.0 Chloride 101 Carbon Dioxide 18 L Anion Gap 19 BUN 108 H Creatinine 3.81 H Estim Creat Clear Calc 18.8 Estimated GFR 12 POC Glucose 151 H 178 H Random Glucose 204 H Calcium 8.0 L D Total Bilirubin 3.8 H Direct Bilirubin 2.5 H AST 119 H ALT 45 H Alkaline Phosphatase 209 H Ammonia 64 H Total Protein 4.6 L Albumin 1.8 L 03/15/24 03/15/24 03/15/24 11:40 16:09 20:28 WBC RBC Hgb Hct MCV MCH MCHC RDW Plt Count MPV Absolute Nucleated RBC Nucleated RBC % (auto) Sodium Potassium Chloride Carbon Dioxide Anion Gap BUN Creatinine Estim Creat Clear Calc Estimated GFR POC Glucose 218 H 192 H 222 H Random Glucose Calcium Total Bilirubin Direct Bilirubin AST ALT Alkaline Phosphatase Ammonia Total Protein Albumin Microbiology Microbiology Results: Microbiology 03/11/24 23:56 Blood - Venous Blood Culture - Preliminary No growth after 48 hours. 03/11/24 23:56 Blood - Venous Blood Culture - Final Coag negative Staphylococcus Procedures Date of Service Date of Service: 03/15/24 Assessment & Plan Assessment and plan (1) Acute kidney injury superimposed on CKD: Status: Acute Plan YORDAN superimposed on CKD due to tubular injury Hold diuretics. 25 % IV Albumin 25 Gm Q 6 H X 3 days No Spironolactone; No indication for dialysis yet C/W rest of current supportive management for now Progress Note: Quality Stroke Does the patient have a stroke diagnosis?: No
[2024-03-15] MEDS: cefTRIAXone sodium 1 GM in 0.9 % Sodium Chloride 50 ML IV (22:02)
[2024-03-16] MEDS: metroNIDAZOLE/NS 500 MG/100 ML PIGGYBACK 100 MG IV ×2 (01:25→10:27)
[2024-03-16] MEDS: Heparin Sodium,Porcine Flush 50 UNITS, 0.9 % Sodium Chloride Flush 5 ML IVFLUSH ×3 (01:29→17:45)
[2024-03-16] MEDS: Lactulose 20 GM/30 ML SOLUTION 200 GM PR (02:14)
[2024-03-16 03:44] VITALS: BP 128/56; PULSE 77; RESP 21; TEMP 36.4; O2SAT 98
[2024-03-16] MEDS: Levothyroxine Sodium 50 MCG TABLET PO (05:29)
[2024-03-16] MEDS: Omeprazole 20 MG CAPSULE.DR PO (05:29)
[2024-03-16 06:22] LABS: Hematocrit 23.9 % (37.0-47.0); Hemoglobin 8.1 g/dl (12.0-16.0); Mean Corpuscular HGB Conc 33.9 g/dl (31.0-35.0); Mean Corpuscular Hemoglobin 30.3 pg (27.0-33.0); Mean Corpuscular Volume 89.5 fL (80.0-98.0); Mean Platelet Volume 11.8 fL (9.4-12.3); NRBC Pct Auto 0.1 /100WBC (0.0-0.2); Platelet Count 171 X10*3/uL (160-400); Red Blood Count 2.67 X10*6/uL (4.20-5.50); Red Cell Distribution Width 21.7 % (11.0-16.0); White Blood Count 15.2 X10*3/uL (4.8-10.8)
[2024-03-16 06:45] LABS: Anion Gap 20 (12-20); Blood Urea Nitrogen 112 mg/dL (9-16); Calcium 9.2 mg/dL (8.4-10.2); Carbon Dioxide 19 mmol/L (22-29); Chloride 99 mmol/L (96-108); Creatinine Clr Calc Pharmacy 17.1; Estimated Glomerular Filt Rate 10; Glucose Fasting 245 mg/dL (60-99); Magnesium 3.1 mg/dL (1.6-2.6); Potassium 4.4 mmol/L (3.3-5.1); Sodium 134 mmol/L (135-145)
[2024-03-16 07:16] LABS: Glucose, Whole Blood 236 mg/dL (60-115)
[2024-03-16] MEDS: Albuterol/Iprat 2.5/0.5MG 3 ML AMPUL.NEB INHALE (07:36)
[2024-03-16 07:39] VITALS: PULSE 71; RESP 22; O2SAT 93
[2024-03-16 07:41] VITALS: BP 117/54; PULSE 76; RESP 20; TEMP 36.1; O2SAT 94
[2024-03-16] MEDS: Midodrine HCl 10 MG TABLET PO (07:56)
[2024-03-16] MEDS: Apixaban 5 MG TABLET PO (07:56)
[2024-03-16] MEDS: rifAXIMin 550 MG TABLET PO (07:56)
[2024-03-16] MEDS: Insulin Lispro 100 UNIT/ML 3 ML VIAL SUBCUT (07:56)
[2024-03-16] MEDS: Insulin Glargine,Hum.rec.anlog 100 UNIT/ML 10 ML VIAL 20 UNIT SUBCUT (07:57)
[2024-03-16] MEDS: dilTIAZem HCL CD 180 MG CAP.ER.24H 360 MG PO (07:58)
[2024-03-16] MEDS: Nystatin Powder 15 GM BOTTLE 1 APPL TOPICAL (08:58)
[2024-03-16] MEDS: Lactulose 20 GM/30 ML SOLUTION 30 GM PO (08:58)
--- NOTE | 2024-03-16 09:18 | HO.PM.IMPN ---
Subjective Subjective Date of Service: 03/16/24 Interval History: weak, confused Physical Exam Vital Signs: Vital Signs: Last Vital Signs Temp 96.9 F 03/16/24 07:41 Pulse 76 03/16/24 07:41 Resp 20 03/16/24 07:41 BP 117/54 L 03/16/24 07:41 Pulse Ox 94 03/16/24 07:41 O2 Del Method Room Air 03/16/24 07:41 FiO2 97 03/12/24 14:27 BMI result Body Mass Index 43.9 lethargic, confrused, jaundiced, ill appearing, anasarca Objective Data Active Medications Acetaminophen (Acetaminophen 325 Mg Tablet) 650 mg PO Q6H PRN PRN Reason: Pain, Mild (Pain Scale 1-3) Last Admin: 03/15/24 18:38 Dose: 650 mg Documented By: JERMAINE Albuterol Sulfate (Albuterol Sulfate 90 Mcg 8 Gm Inhaler) 2 puff INHALE Q4H PRN PRN Reason: Shortness Of Breath Or Wheezing Albuterol/Ipratropium (Albuterol/Iprat 2.5/0.5mg 3 Ml Ampul.Neb) 3 ml INHALE QID [facility] Last Admin: 03/16/24 07:36 Dose: 3 ml Documented By: JAMILA Apixaban (Apixaban 5 Mg Tablet) 5 mg PO BID [facility] Last Admin: 03/16/24 07:56 Dose: 5 mg Documented By: WALDEMAR Heparin Sodium (Porcine) 50 (units/ Sodium Chloride 5 ml) 0 units IVFLUSH QSHIFT [facility] Last Admin: 03/16/24 07:58 Dose: 50 unit Documented By: WALDEMAR Diltiazem HCl (Diltiazem Hcl Cd 180 Mg Cap.Er.24h) 360 mg PO DAILY [facility]; Protocol Last Admin: 03/16/24 07:58 Dose: 360 mg Documented By: WALDEMAR Fluticasone/Vilanterol (Fluticasone/Vilanterol 200/25 Blst.W.Dev) 1 puff INHALE RDAILY [facility] Last Admin: 03/16/24 07:39 Dose: Not Given Documented By: JAMILA Non-Admin Reason: See Note Ceftriaxone Sodium 1 gm/ (Sodium Chloride) 50 mls @ 100 mls/hr IV Q24H [facility] Last Infusion: 03/15/24 22:50 Dose: Infused Documented By: JERMAINE Metronidazole (Flagyl) 500 mg in 100 mls @ 100 mls/hr IV Q8H [facility] Last Infusion: 03/16/24 02:54 Dose: Infused Documented By: JACK Insulin Glargine (Insulin Glargine,Hum.Rec.Anlog 100 Unit/Ml 10 Ml Vial) 20 unit SUBCUT BID [facility] Last Admin: 03/16/24 07:57 Dose: 20 unit Documented By: WALDEMAR Comments: Insulin Human Lispro (Insulin Lispro 100 Unit/Ml 3 Ml Vial) 0 unit SUBCUT QIDACHS [facility]; Protocol Last Admin: 03/16/24 07:56 Dose: 4 unit Documented By: WALDEMAR Lactulose (Lactulose 20 Gm/30 Ml Solution) 30 gm PO BID [facility] Last Admin: 03/16/24 08:58 Dose: 30 gm Documented By: WALDEMAR Lactulose (Lactulose 20 Gm/30 Ml Solution) 200 gm OH Q6H [facility] Last Admin: 03/16/24 08:59 Dose: Not Given Documented By: WALDEMAR Non-Admin Reason: Administered by Alternate Route Levothyroxine Sodium (Levothyroxine Sodium 50 Mcg Tablet) 50 mcg PO DAILY@0600 [facility] Last Admin: 03/16/24 05:29 Dose: 50 mcg Documented By: JACK Metoprolol Tartrate (Metoprolol Tartrate 5 Mg/5 Ml Vial) 5 mg IVPUSH Q6H PRN; Protocol PRN Reason: HR > 120 Last Admin: 03/14/24 12:08 Dose: 5 mg Documented By: RIVAS Midodrine (Midodrine Hcl 10 Mg Tablet) 10 mg PO TIDWM [facility] Last Admin: 03/16/24 07:56 Dose: 10 mg Documented By: WALDEMAR Nystatin (Nystatin Powder 15 Gm Bottle) 1 appl TOPICAL BID [facility]; Protocol Last Admin: 03/16/24 08:58 Dose: 1 appl Documented By: WALDEMAR Omeprazole (Omeprazole 20 Mg Capsule.) 20 mg PO BID@0630,1630 [facility] Last Admin: 03/16/24 05:29 Dose: 20 mg Documented By: JACK Ondansetron HCl (Ondansetron Hcl 4 Mg/2 Ml Vial) 4 mg IVPUSH Q8H PRN PRN Reason: Nausea and Vomiting Rifaximin (Rifaximin 550 Mg Tablet) 550 mg PO BID [facility] Last Admin: 03/16/24 07:56 Dose: 550 mg Documented By: WALDEMAR Labs 03/16/24 06:09 03/16/24 06:09 Labs: Laboratory Results - last 24 hr 03/15/24 03/15/24 03/15/24 09:35 11:40 16:09 MCV 89.3 MCH 30.0 MCHC 33.6 RDW 21.7 H Plt Count 215 MPV 11.7 Absolute Nucleated RBC 0.020 H Nucleated RBC % (auto) 0.1 Anion Gap 19 Estim Creat Clear Calc 18.8 Estimated GFR 12 POC Glucose 218 H 192 H Random Glucose 204 H Fasting Glucose Calcium 8.0 L D Magnesium Total Bilirubin 3.8 H Direct Bilirubin 2.5 H AST 119 H ALT 45 H Alkaline Phosphatase 209 H Ammonia 64 H Total Protein 4.6 L Albumin 1.8 L 03/15/24 03/16/24 03/16/24 20:28 06:09 07:11 MCV 89.5 MCH 30.3 MCHC 33.9 RDW 21.7 H Plt Count 171 MPV 11.8 Absolute Nucleated RBC 0.020 H Nucleated RBC % (auto) 0.1 Anion Gap 20 Estim Creat Clear Calc 17.1 Estimated GFR 10 POC Glucose 222 H 236 H Random Glucose Fasting Glucose 245 H Calcium 9.2 D Magnesium 3.1 H Total Bilirubin Direct Bilirubin AST ALT Alkaline Phosphatase Ammonia Total Protein Albumin Assessment and Plan (1) Colitis: Status: Acute (2) Acute kidney injury superimposed on CKD: Status: Acute (3) Acute hyponatremia: Status: Acute Plan 73F PMH significant for?asthma/COPD overlap syndrome not on home O2, hx of PE on Eliquis, paroxysmal atrial fibrillation, insulin-dependent type 2 diabetes, hypothyroidism, GERD, GRIMES cirrhosis, and mood disorder presented for worsening mentation and weakness. found to have lloyd on CKD III acute Toxic metabolic encephalopathy due to hepatic and uremic encephalopathy continue lactulose, rifaximin, monitor possible colitis though more likely anasarca related continue empiric rocpehin, flagyl LLOYD on CKD III continue to worsen monitor output, creatinine renal following GRIMES cirrhosis Lactic acidosis secondary to liver cirrhosis not sepsis PAF with rvr Continue diltiazem, Eliquis chronic thrombocytopenia related to cirrhosis asthma/COPD overlap continue home inhalers, albuterol p.r.n. insulin-dependent type 2 diabetes with hyperglycemia Continue basal bolus insulin hypothyroidism continue levothyroxine dysphagia ndd2 solids, thin liquids DVT prophylaxis-Eliquis DNR/DNI - grave prognosis reason for continued hospitalization:lloyd, encephalopathy. Quality Stroke Does the patient have a stroke diagnosis?: No VTE Prior VTE?: No VTE Risk Level:: Medical - moderate - high VTE Device Contraindication: Treatment Not Indicated VTE Drug Contraindication: N/A - Med Ordered
[2024-03-16 10:58] LABS: Glucose, Whole Blood 251 mg/dL (60-115)
[2024-03-16 11:25] VITALS: BP 106/53; PULSE 82; RESP 20; TEMP 36.1; O2SAT 94
--- NOTE | 2024-03-16 11:50 | MHC.SLORD ---
Addendum entered and electronically signed by KARL Lua 03/16/24 12:22: VISUAL DISPLAY ASSOCIATE attempted to see pt w/ lunch tray. Pt declining. Original Note: Speech Language Pathology Order Status: VISUAL DISPLAY ASSOCIATE attempted to see pt 3x. Pt not appropriate for PO trials. Pt's sister reports that she had just eaten [place] ice w/ her requiring breaks after every 2 bites. RN reports pt ate small breakfast and tolerated pills crushed/whole in puree. VISUAL DISPLAY ASSOCIATE will attempt to see pt again later today if time allows.
--- NOTE | 2024-03-16 12:06 | W.MHC.ACPN ---
Advanced Care Planning Note Advanced Care Planning Note Discussed with: family member(s) Time spent (in minutes): 17 Narrative: Discussed with healthcare proxy at bedside per patient request, discussed diagnosis of uremic encephalopathy and YORDAN on CKD 3, decision made to transitioned to comfort measures only Problems Discussed (1) Colitis: (2) Acute kidney injury superimposed on CKD: (3) Acute hyponatremia:
[2024-03-16] MEDS: Morphine Sulfate 2 MG/ML CARTRIDGE IVPUSH ×5 (12:15→21:47)
--- NOTE | 2024-03-16 13:13 | P.CDIM_ITS ---
PROVIDER RESPONSE TEXT: To clarify, the appropriate diagnosis supported by the clinical indicators: Anemia of chronic disease: inflammatory QUERY TEXT: PHYSICIAN'S DOCUMENTATION REQUEST Date of Query: 03/16/2024 01:05 PM EDT Patient Name: Jennifer Duran Admit Date: 03/12/2024 Dear Suhas Hayward, A review of the medical record indicates additional documentation may be needed. Please review below and update the documentation accordingly. Clinical Indicators: H&H on 03/14/24: 11.5/34.3 H&H on03/16/24: 8.1/23.9 Based on the above, could you clarify which of the following is the most likely type of anemia you ar e evaluating, treating, and/or monitoring? Acute blood loss anemia Acute blood loss anemia with baseline chronic anemia (specify type) Anemia of chronic disease indicate if neoplastic disease, CKD, or other Chronic iron deficiency anemia due to blood loss Vitamin B12 deficiency anemia indicate etiology, such as intrinsic factor deficiency, malabsorption, transcobalamin II deficiency, dietary, etc Folate deficiency anemia indicate etiology, such as dietary, drug-induced, etc Protein deficiency anemia Other (explain) Clinically unable to determine (explain) Thank you, Lady Cosby RN Use of terms such as suspected, likely, concern for, or probable (associated with a specific diagnosi s that is being evaluated, monitored, or treated as if it exists) are acceptable and can be coded in the inpatient se tting, when documented at the time of discharge. Please use your independent medical judgment in providing your response. THIS QUERY IS PART OF THE PERMANENT MEDICAL RECORD
--- NOTE | 2024-03-16 13:28 | P.CDIM_ITS ---
PROVIDER RESPONSE TEXT: To clarify, the appropriate diagnosis supported by the clinical indicators: CKD 3 QUERY TEXT: PHYSICIAN'S DOCUMENTATION REQUEST Date of Query: 03/16/2024 01:09 PM EDT Patient Name: Jennifer Duran Admit Date: 03/12/2024 Dear Suhas Hayward, A review of the medical record indicates additional documentation may be needed. Please review below and update the documentation accordingly. Clinical Indicators: Per Hospitalist Progress Note 03/16/24: YORDAN on CKD 3, continues to worsen Per Hospitalist Progress Note 03/14/24: Acute kidney injury on CKD 4 Please clarify which of the following accurately represents the patient's stage of the patient's amor l status: CKD 3 CKD 4 Other (explain) Clinically unable to determine (explain) Thank you, Lady Cosby RN Use of terms such as suspected, likely, concern for, or probable (associated with a specific diagnosi s that is being evaluated, monitored, or treated as if it exists) are acceptable and can be coded in the inpatient se tting, when documented at the time of discharge. Please use your independent medical judgment in providing your response. THIS QUERY IS PART OF THE PERMANENT MEDICAL RECORD
--- NOTE | 2024-03-16 13:28 | P.CDIM_ITS ---
PROVIDER RESPONSE TEXT: To clarify, the appropriate diagnosis supported by the clinical indicators: Acute QUERY TEXT: PHYSICIAN'S DOCUMENTATION REQUEST Date of Query: 03/16/2024 01:13 PM EDT Patient Name: Jennifer Duran Admit Date: 03/12/2024 Dear Suhas Hayward, A review of the medical record indicates additional documentation may be needed. Please review below and update the documentation accordingly. Clinical Indicators: Per Hospitalist Progress Note 03/16/24: Lactic acidosis secondary to liver cirrhosis Clarify which of the following accurately represents the acuity of the Lactic acidosis. Possible options might include: Acute Acute on chronic Compensated Chronic stable condition Remission Other (explain) Clinically unable to determine (explain) Thank you, Lady Cosby RN Use of terms such as suspected, likely, concern for, or probable (associated with a specific diagnosi s that is being evaluated, monitored, or treated as if it exists) are acceptable and can be coded in the inpatient se tting, when documented at the time of discharge. Please use your independent medical judgment in providing your response. THIS QUERY IS PART OF THE PERMANENT MEDICAL RECORD
--- NOTE | 2024-03-16 13:43 | P.PNNP_ITS ---
Subjective Subjective Date of Service: 03/16/24 Interval history: weak, confused Physical Exam 2 Vital Signs: Vital Signs: Last Vital Signs Temp 96.9 F 03/16/24 11:25 Pulse 82 03/16/24 11:25 Resp 20 03/16/24 11:25 BP 106/53 L 03/16/24 11:25 Pulse Ox 94 03/16/24 11:25 O2 Del Method Room Air 03/16/24 11:25 FiO2 97 03/12/24 14:27 BMI result Body Mass Index 43.9 Const: General: ill appearing Neck: Neck: Yes supple Resp: Auscultation: clear to auscultation bilaterally Cardio: Palpation: no palpable S3 Heart sounds: no rubs GI: Palpation (GI): Soft to palpation Auscultation: normal bowel sounds Neuro: Motor exam (neuro): no asterixis Objective Data Labs 03/16/24 06:09 03/16/24 06:09 Labs: Laboratory Results - last 24 hr 03/15/24 03/15/24 03/16/24 16:09 20:28 06:09 WBC 15.2 H RBC 2.67 L D Hgb 8.1 L Hct 23.9 L D MCV 89.5 MCH 30.3 MCHC 33.9 RDW 21.7 H Plt Count 171 MPV 11.8 Absolute Nucleated RBC 0.020 H Nucleated RBC % (auto) 0.1 Sodium 134 L Potassium 4.4 Chloride 99 Carbon Dioxide 19 L Anion Gap 20 BUN 112 H Creatinine 4.19 H* Estim Creat Clear Calc 17.1 Estimated GFR 10 POC Glucose 192 H 222 H Fasting Glucose 245 H Calcium 9.2 D Magnesium 3.1 H 03/16/24 03/16/24 07:11 10:45 WBC RBC Hgb Hct MCV MCH MCHC RDW Plt Count MPV Absolute Nucleated RBC Nucleated RBC % (auto) Sodium Potassium Chloride Carbon Dioxide Anion Gap BUN Creatinine Estim Creat Clear Calc Estimated GFR POC Glucose 236 H 251 H Fasting Glucose Calcium Magnesium Microbiology Microbiology Results: Microbiology 03/11/24 23:56 Blood - Venous Blood Culture - Preliminary No growth after 48 hours. 03/11/24 23:56 Blood - Venous Blood Culture - Final Coag negative Staphylococcus Procedures Date of Service Date of Service: 03/16/24 Assessment & Plan Assessment and plan (1) Acute kidney injury superimposed on CKD: Status: Acute Assessment and Plan: . Plan YORDAN superimposed on CKD due to hypoperfusion. This episode of YORDAN due to hypoperfusion from significant diuresis. hold diuretics. Watch urine output. Renal function continues to worsen. I have discussed the need for dialysis. She wants to discuss with the sister Glenys. If the sister is willing we will proceed with a temporary dialysis catheter otherwise I would consider hospice care h/o Hyperkalemia due to the combination of spironolactone setting of renal insufficiency. For now I will hold off on using spironolactone. Keep on low-potassium diet and use Lokelma as needed. Hepatic encephalopathy Lactulose to correct hyperammonemia Time Spent With Patient Time: Total time managing care of this patient today ____ minutes. Progress Note: Quality Stroke Does the patient have a stroke diagnosis?: No
[2024-03-16 20:00] VITALS: PULSE 86; TEMP 36.2
[2024-03-17] VITALS: PULSE 82; RESP 12; TEMP 36.1; O2SAT 94
[2024-03-17] MEDS: Heparin Sodium,Porcine Flush 50 UNITS, 0.9 % Sodium Chloride Flush 5 ML IVFLUSH ×2 (01:28→10:13)
[2024-03-17 04:00] VITALS: BP 115/52; PULSE 70; RESP 10; TEMP 36.1; O2SAT 94
[2024-03-17] MEDS: Morphine Sulfate 2 MG/ML CARTRIDGE IVPUSH ×5 (08:51→16:09)
--- NOTE | 2024-03-17 09:58 | P.PNIM_ITS ---
Subjective Subjective Date of Service: 03/17/24 Review of Systems Review of Systems: Yes Unobtainable due to mental condition Physical Exam 2 Vital Signs: Vital Signs: Last Vital Signs Temp 96.9 F 03/17/24 04:00 Pulse 70 03/17/24 04:00 Resp 10 L 03/17/24 04:00 BP 115/52 L 03/17/24 04:00 Pulse Ox 94 03/17/24 04:00 O2 Del Method Room Air 03/17/24 04:00 FiO2 97 03/12/24 14:27 BMI result Body Mass Index 43.9 more alert, minimally verbal, answeres yes or no questions, a bit tachypneic, but mostly comfortable appearing Objective Data Active Medications Acetaminophen (Acetaminophen 325 Mg Tablet) 650 mg PO Q6H PRN PRN Reason: Pain, Mild (Pain Scale 1-3) Last Admin: 03/15/24 18:38 Dose: 650 mg Documented By: JERMAINE Albuterol Sulfate (Albuterol Sulfate 90 Mcg 8 Gm Inhaler) 2 puff INHALE Q4H PRN PRN Reason: Shortness Of Breath Or Wheezing Albuterol/Ipratropium (Albuterol/Iprat 2.5/0.5mg 3 Ml Ampul.Neb) 3 ml INHALE QID [facility] Last Admin: 03/17/24 07:22 Dose: Not Given Documented By: JAMILA Non-Admin Reason: See Note Heparin Sodium (Porcine) 50 (units/ Sodium Chloride 5 ml) 0 units IVFLUSH QSHIFT [facility] Last Admin: 03/17/24 01:28 Dose: 50 unit Documented By: HOLLEY Comments: 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 Assessment and Plan (1) Colitis: Status: Acute (2) Acute kidney injury superimposed on CKD: Status: Acute (3) Acute hyponatremia: Status: Acute Plan 73F PMH significant for?asthma/COPD overlap syndrome not on home O2, hx of PE on Eliquis, paroxysmal atrial fibrillation, insulin-dependent type 2 diabetes, hypothyroidism, GERD, GRIMES cirrhosis, and mood disorder presented for worsening mentation and weakness. 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
--- NOTE | 2024-03-17 10:16 | PC.NURSE ---
MERCHANT SEAMAN: incontinent with BM , skin cre done , repositined , moaning during personal car , said help me . medicated with Morphine for pain
--- NOTE | 2024-03-17 13:14 | MHC.CLN ---
F/U PO INTAKE POOR DIET ADVANCED TO 2GM NA PUREED PER GOVERNMENT AFFAIRS RESEARCHER PT TRANSITIONED TO DANCE MASTER WILL D/C GELATEIN R/T DANCE MASTER CAN CHANGE DIET TO FEED FROM FLOOR IF NEEDED R/T DANCE MASTER (COFFEE CART CAN BE PROVIDED FOR FAMILY) FOLLOWING WITH TEAM AND WILL PROVIDE SUPPORT NEEDED
[2024-03-17 16:19] VITALS: RESP 24
[2024-03-17] MEDS: Morphine Sulfate/NS 100 MG/100 ML PLAST..BAG IVCONT (16:19)
--- NOTE | 2024-03-17 16:43 | PC.NURSE ---
moaning continuously, ESTABLISHMENT GUIDE started for pt's comfort ,
--- NOTE | 2024-03-17 18:12 | PC.NURSE ---
pt still making moaning sounds , Pt repositioned, mouth care done , Rn contacted DR Hayward , morphine dose increased to 3 mg/hr as per titration order
[2024-03-17 19:25] VITALS: RESP 17
[2024-03-17 20:55] VITALS: RESP 14
--- NOTE | 2024-03-17 20:56 | PC.NURSE ---
Addendum entered by Trae Ott RN 03/18/24 02:21: morphine continuous gtt at 4mg/hr. RR 6-8 bpm, unlabored. morphine running per parameters. see shift assessment. pt continues to open eyes to movement of hospital bed. unable to follow commands or verbalize. pt eyes not following this nurse. MD aware. Original Note: ORDINARY SEAMAN continuous morphine adjusted at 2049. witnessed by clinical supervisor aluminum fabrication Cathy
[2024-03-17 23:09] VITALS: RESP 8
[2024-03-18 03:01] VITALS: RESP 10
[2024-03-18 08:00] VITALS: BP 77/37; PULSE 62; RESP 16; TEMP 36.4
--- NOTE | 2024-03-18 10:50 | HO.PM.IMPN ---
Subjective Subjective Date of Service: 03/18/24 Interval History: much more comfortable appearing Physical Exam Vital Signs: Vital Signs: Last Vital Signs Temp 97.5 F 03/18/24 08:00 Pulse 62 03/18/24 08:00 Resp 16 03/18/24 08:00 BP 77/37 L 03/18/24 08:00 Pulse Ox 94 03/17/24 04:00 O2 Del Method Room Air 03/17/24 04:00 FiO2 97 03/12/24 14:27 BMI result Body Mass Index 43.9 obtunded, bradypnea, appears comfortable Objective Data Active Medications Acetaminophen (Acetaminophen 325 Mg Tablet) 650 mg PO Q6H PRN PRN Reason: Pain, Mild (Pain Scale 1-3) Last Admin: 03/15/24 18:38 Dose: 650 mg Documented By: JERMAINE Heparin Sodium (Porcine) 50 (units/ Sodium Chloride 5 ml) 0 units IVFLUSH [facility] Last Admin: 03/18/24 08:43 Dose: Not Given Documented By: LINDA Non-Admin Reason: IV Running Morphine Sulfate (Morphine Sulfate/Ns) 100 mg in 100 mls @ 0 mls/hr IVCONT .Q0M [facility]; Protocol Last Infusion: 03/17/24 20:55 Dose: 4 mg/hr, 4 mls/hr Documented By: STEPHANY Morphine Sulfate (Morphine Sulfate 2 Mg/Ml Cartridge) 2 mg IVPUSH Q1H PRN; Protocol PRN Reason: work of breathing, discomfort Last Admin: 03/17/24 16:09 Dose: 2 mg Documented By: WALDEMAR Ondansetron HCl (Ondansetron Hcl 4 Mg/2 Ml Vial) 4 mg IVPUSH Q8H PRN PRN Reason: Nausea and Vomiting Labs 03/16/24 06:09 03/16/24 06:09 Assessment and Plan (1) Colitis: Status: Acute (2) Acute kidney injury superimposed on CKD: Status: Acute (3) Acute hyponatremia: Status: Acute Plan 73F PMH significant for?asthma/COPD overlap syndrome not on home O2, hx of PE on Eliquis, paroxysmal atrial fibrillation, insulin-dependent type 2 diabetes, hypothyroidism, GERD, GRIMES cirrhosis, and mood disorder presented for worsening mentation and weakness. found to have yordan on CKD III acute Toxic metabolic encephalopathy due to hepatic and uremic encephalopathy YORDAN on CKD III GRIMES cirrhosis Lactic acidosis -secondary to liver cirrhosis not sepsis PAF with rvr chronic thrombocytopenia asthma/COPD overlap insulin-dependent type 2 diabetes with hyperglycemia hypothyroidism dysphagia WATER ANALYST appears comfortable on morphine infusion Quality Stroke Does the patient have a stroke diagnosis?: No VTE Prior VTE?: No VTE Risk Level:: Medical - moderate - high VTE Device Contraindication: Treatment Not Indicated VTE Drug Contraindication: N/A - Med Ordered
[2024-03-18 11:53] VITALS: RESP 12
--- NOTE | 2024-03-18 15:40 | PM.EVENT ---
Event Note Date of Service: 03/18/24 Event Note: Patient apneic, no pupillary reflexes, no heart sounds, time of 15:39 Time Spent With Patient Time: Total time managing care of this patient today ____ minutes.
--- NOTE | 2024-03-18 15:41 | P.DN_ITS ---
Discharge Sum: Prov Provider Primary care physician: Omi Dominguez MD Consults: 03/13/24 09:29 Consult to Wound Care Routine Reason for consultation: Sacrum DTI POA 03/14/24 08:12 Consult to Nephrology Routine Consulting Provider: [facility] Reason for consultation: yordan Discharge Sum: Diag Contributing Factors (1) Colitis: (2) Acute kidney injury superimposed on CKD: (3) Acute hyponatremia: Discharge Sum: Summary Date and Time Date of admission: 03/12/24 09:50 Date of : 03/18/24 Time of : 03:39 Summary Details: from initial hpi: 73-year-old female with a PMH significant for?asthma/COPD overlap syndrome not on home O2, hx of PE on Eliquis, paroxysmal atrial fibrillation, insulin- dependent type 2 diabetes, hypothyroidism, GERD, GRIMES cirrhosis, and mood disorder presented for worsening mentation and weakness. The patient was unable to participate in history as she was barely waking up and say incomprehensible words. she was doing well at baseline on 03/10 according to her sister but she started to deteriorate by Wednesday and became obtunded so she was sent to ED for further evaluation. In Ed found to have mildly elevated WBCs of 13k, YORDAN with elevated lactic acid. CT chest showing possible pneumonia LLL. Admitted for further evaluation and treatment. hospital course: Patient was admitted for acute toxic metabolic encephalopathy due hepatic and uremic encephalopathy due to acute kidney injury on CKD 3. She was treated as hepatorenal syndrome with albumin, midodrine, however, patient did not have any improvement in renal function, became anuric. Also complicated by paroxysmal atrial fibrillation with rapid ventricular response treated with diltiazem and Eliquis, diabetes with hyperglycemia treated with insulin, hypothyroidism with Synthroid. Due to poor prognosis patient was made comfort measures only. She 03/18/2024 at 15:39. Additional Data Attending physician: Suhas Hayward MD
--- NOTE | 2024-03-29 08:23 | P.CDIM_ITS ---
PROVIDER RESPONSE TEXT: To clarify, the appropriate diagnosis supported by the clinical indicators: Diagnosis of Pneumonia is still a likely, suspected, probable diagnosis QUERY TEXT: PHYSICIAN'S DOCUMENTATION REQUEST Date of Query: 03/29/2024 07:50 AM EDT Patient Name: Jennifer Duran Admit Date: 03/12/2024 Dear Suhas Hayward, A review of the medical record indicates additional documentation may be needed. Please review below and update the documentation accordingly. Clinical Indicators: Per H&P 03/12/24: CT chest showing possible pneumonia LLL. was documented but is not consistently noted in subsequent d ocumentation. Please clarify the following: Diagnosis of Pneumonia was present on admission and is now resolved Diagnosis of Pneumonia was present on admission and is still being monitored, evaluated, or treated Diagnosis of Pneumonia was ruled out Diagnosis of Pneumonia is still a likely, suspected, probable diagnosis Other (explain) Clinically unable to determine (explain) Thank you, Lady Cosby RN Use of terms such as suspected, likely, concern for, or probable (associated with a specific diagnosi s that is being evaluated, monitored, or treated as if it exists) are acceptable and can be coded in the inpatient se tting, when documented at the time of discharge. Please use your independent medical judgment in providing your response. THIS QUERY IS PART OF THE PERMANENT MEDICAL RECORD
--- NOTE | 2024-03-29 08:29 | P.CDIM_ITS ---
PROVIDER RESPONSE TEXT: To clarify, the appropriate diagnosis supported by the clinical indicators: Diagnosis of CVA is still a likely, suspected, probable diagnosis QUERY TEXT: PHYSICIAN'S DOCUMENTATION REQUEST Date of Query: 03/29/2024 07:31 AM EDT Patient Name: Jennifer Duran Admit Date: 03/12/2024 Dear Suhas Hayward, A review of the medical record indicates additional documentation may be needed. Please review below and update the documentation accordingly. Clinical Indicators: Arrived obtunded/somnolent NIH Stroke Score= 19 CT/CT head/brain wo IV con IMPRESSION: 1. 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 2. No evidence of acute intracranial hemorrhage. 3. 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 The diagnosis of CVA was documented on 03/11/24 and it is not consistently noted in subsequent document ation. Please clarify the following: Diagnosis of CVA was present on admission and is now resolved Diagnosis of CVA was present on admission and is still being monitored, evaluated, or treated Diagnosis of CVA was ruled out Diagnosis of CVA is still a likely, suspected, probable diagnosis Other (explain) Clinically unable to determine (explain) Thank you, Lady Cosby RN Use of terms such as suspected, likely, concern for, or probable (associated with a specific diagnosi s that is being evaluated, monitored, or treated as if it exists) are acceptable and can be coded in the inpatient se tting, when documented at the time of discharge. Please use your independent medical judgment in providing your response. THIS QUERY IS PART OF THE PERMANENT MEDICAL RECORD
== END 2024-03-18 18:24 | disposition expired | DRG 64 ==
LOC: HO.ED 03-12 03:14 → HO.EDOVER 03-12 10:21 → HO.IMC 03-12 23:53
PROVIDERS: Admitting Provider Student in an Organized Health Care Education/Training Program; Emergency Provider Emergency Medicine; PCP Hospitalist; Visit Provider Internal Medicine
DX: I63.9 Cerebral infarction, unspecified (principal); G92.8 Other toxic encephalopathy; J18.9 Pneumonia, unspecified organism; N17.0 Acute kidney failure with tubular necrosis; K76.7 Hepatorenal syndrome; J44.0 Chronic obstructive pulmonary disease with (acute) lower respiratory infection; E87.21 Acute metabolic acidosis; E87.1 Hypo-osmolality and hyponatremia; Z66 Do not resuscitate; Z51.5 Encounter for palliative care; D63.1 Anemia in chronic kidney disease; E11.22 Type 2 diabetes mellitus with diabetic chronic kidney disease; K76.82 Hepatic encephalopathy; K52.9 Noninfective gastroenteritis and colitis, unspecified; K75.81 Nonalcoholic steatohepatitis (NASH); K74.69 Other cirrhosis of liver; R13.10 Dysphagia, unspecified; E87.5 Hyperkalemia; Z86.711 Personal history of pulmonary embolism; I48.0 Paroxysmal atrial fibrillation; D69.59 Other secondary thrombocytopenia; E03.9 Hypothyroidism, unspecified; Z20.822 Contact with and (suspected) exposure to COVID-19; Z79.01 Long term (current) use of anticoagulants; Z79.4 Long term (current) use of insulin; Z79.890 Hormone replacement therapy; Z79.899 Other long term (current) drug therapy
CPT/HCPCS: 36410; 36415; 70450; 71045; 71250; 74176; 80048; 80053; 80076; 80307; 81001; 82140; 82803; 82947; 83605; 83690; 83735; 83880; 84484; 85025; 85027; 85610; 87040; 87147; 87205; 87502; 87635; 92610; 93005; 94640; 99285; C1751; C1758; J0696; J1642; J1836; J2270; J3370; P9047

== ENCOUNTER → 2024-03-11 22:56 | Outpatient (BNV) | payer MEDICARE, SELFPAY | PROVIDERS: Emergency Provider Emergency Medicine; PCP Hospitalist; Visit Provider Internal Medicine | DX: I48.91 Unspecified atrial fibrillation (principal) | CPT/HCPCS: 93010 ==

== ENCOUNTER → 2024-03-12 09:50 | Outpatient (BNV) | payer MEDICARE, SELFPAY | PROVIDERS: Admitting Provider Student in an Organized Health Care Education/Training Program; Emergency Provider Emergency Medicine; PCP Hospitalist; Visit Provider Student in an Organized Health Care Education/Training Program | DX: K52.9 Noninfective gastroenteritis and colitis, unspecified (principal); N17.9 Acute kidney failure, unspecified; N18.9 Chronic kidney disease, unspecified; E87.1 Hypo-osmolality and hyponatremia | CPT/HCPCS: 99223; 99232; 99233; 99238; 99497; 99499 ==

== ENCOUNTER → 2024-03-12 09:50 | Outpatient (BNV) | payer MEDICARE, SELFPAY | PROVIDERS: Admitting Provider Student in an Organized Health Care Education/Training Program; Emergency Provider Emergency Medicine; PCP Hospitalist; Visit Provider Internal Medicine Nephrology | DX: N17.9 Acute kidney failure, unspecified (principal); N18.30 Chronic kidney disease, stage 3 unspecified | CPT/HCPCS: 99222; 99232; 99233 ==